=== PATIENT | female | born 1950 | race Caucasian/White ===

== ENCOUNTER 2016-07-20 18:58 | Emergency (ER) | payer MEDICARE, OTHER ==
[~2016-07-20] VITALS: Ht 165.1 cm; Wt 55.0 kg
[2016-07-20 19:01] VITALS: BP 96/56; PULSE 74; RESP 15; TEMP 98; O2SAT 95
[2016-07-20] MEDS ORDERED: RESP: ALBUTEROL 2.5 MG/IPRATROPIUM 0.5 MG NEB (SCH) NEB ONE (19:45)
--- NOTE | 2016-07-20 19:52 | PD ---
HPI Chief Complaint: Abnormal Results Time Seen by Provider: 19:31 Travel History International Travel<30 days: No Contact w/Intl Traveler<30days: No Traveled to known affect area: No History of Present Illness HPI To 65-year-old woman who presents to the emergency department brought in by family because she has "abnormal labs". She is a history of stage V chronic kidney disease. She has a fistula in her left arm that is still maturing. 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 2 days ago her family moved her down from [place]. She has a primary physician, Kim Rodriges, who did blood work and referred her to the emergency department. Reports her creatinine was in the threes, and her white count was in the 2.4 range. Patient complains she's been feeling weak and tired. She hasn't really pedis much. No fevers. History Past Medical History Narrative Medical COPD CAD Hypertension vitamin D deficiency Chronic kidney disease Tetanus Vaccination: > 5 Years : 3 Para: 3 Social History Alcohol Use: No Tobacco Use: Yes Allergies-Medications (Allergen,Severity, Reaction): Coded Allergies: Cipro (Verified Allergy, Unknown, 07/20/16) Codeine (Verified Allergy, Unknown, 07/20/16) Morphine (Verified Allergy, Unknown, 07/20/16) Reported Meds & Prescriptions Reported Meds & Active Scripts Active Reported Duoneb (Ipratropium-Albuterol Neb) 0.5-2.5 Mg/3 Ml Neb 1 Nebule INH Q6HR NEB Alprazolam 0.5 Mg Tab 0.5 Mg PO Q12HR PRN Aspirin 81 (Aspirin) 81 Mg Tabdr 81 Mg PO DAILY Famotidine 20 Mg Tab 20 Mg PO DAILY Docusate Sodium 100 Mg Cap 100 Mg PO BID Fluoxetine (Fluoxetine HCl) 20 Mg Cap 20 Mg PO DAILY Vitamin D3 (Cholecalciferol) 2,000 Unit Tab 2,000 Units PO DAILY Spiriva Handihaler (Tiotropium Inh) 18 Mcg Cap 18 Mcg INH DAILY 1 capsule = 18 mcg Tolterodine (Tolterodine Tartrate) 1 Mg Tab 1 Mg PO DAILY Symbicort Inh (Budesonide/Formoterol Fumarate) 160-4.5 Mcg/Act Aero 2 Puff INH Q12HR Nicoderm CQ Patch (Nicotine) 21 Mg/24 Hr Patch 21 Mg T-DERMAL DAILY Mucinex ER 12 HR (Guaifenesin) 600 Mg Melania 600 Mg PO TID Trazodone (Trazodone HCl) 150 Mg Tab 150 Mg PO HS Oxycodone Hydrochloride (Oxycodone HCl) 5 Mg Cap 10 Mg Gabapentin 100 Mg Cap 100 Mg PO TID Review of Systems Except as stated in HPI: all other systems reviewed are Neg Physical Exam Narrative GENERAL: Well-appearing 65-year-old woman, no acute distress.] SKIN: Warm and dry. HEAD: Atraumatic. Normocephalic. CARDIOVASCULAR: Regular rate and rhythm. No murmur appreciated. RESPIRATORY: No accessory muscle use. Clear to auscultation. Breath sounds equal bilaterally. GASTROINTESTINAL: Abdomen soft, non-tender, nondistended. Hepatic and splenic margins not palpable. MUSCULOSKELETAL: No obvious deformities. No edema. NEUROLOGICAL: Awake and alert. No obvious cranial nerve deficits. Motor grossly within normal limits. Normal speech. Data Data Last Documented VS Vital Signs Date Time Temp Pulse Resp B/P Pulse Ox O2 Delivery O2 Flow Rate FiO2 07/20/16 19:49 98 Room Air 07/20/16 19:01 98.0 74 15 96/56 Orders Complete Blood Count With Diff (07/20/16 19:17) Comprehensive Metabolic Panel (07/20/16 19:17) Lipase (07/20/16 19:17) Ua Includes Microscopic (07/20/16 19:17) Iv Access Insert/Monitor (07/20/16 19:17) Chest, Single Ap (07/20/16 ) Albuterol-Ipratropium Neb (Duoneb Neb) (07/20/16 19:45) ^ Home Health (07/20/16 20:53) Labs Laboratory Tests Test 07/20/16 19:55 White Blood Count 2.1 TH/MM3 Red Blood Count 3.51 MIL/MM3 Hemoglobin 9.9 GM/DL Hematocrit 29.1 % Mean Corpuscular Volume 83.0 FL Mean Corpuscular Hemoglobin 28.2 PG Mean Corpuscular Hemoglobin 34.0 % Concent Red Cell Distribution Width 13.4 % Platelet Count 306 TH/MM3 Mean Platelet Volume 7.4 FL Neutrophils (%) (Auto) 45.0 % Lymphocytes (%) (Auto) 18.8 % Monocytes (%) (Auto) 33.7 % Eosinophils (%) (Auto) 0.7 % Basophils (%) (Auto) 1.8 % Neutrophils # (Auto) 1.0 TH/MM3 Lymphocytes # (Auto) 0.4 TH/MM3 Monocytes # (Auto) 0.7 TH/MM3 Eosinophils # (Auto) 0.0 TH/MM3 Basophils # (Auto) 0.0 TH/MM3 CBC Comment DIFF FINAL Differential Comment Sodium Level 134 MEQ/L Potassium Level 4.6 MEQ/L Chloride Level 103 MEQ/L Carbon Dioxide Level 22.9 MEQ/L Anion Gap 8 MEQ/L Blood Urea Nitrogen 53 MG/DL Creatinine 4.18 MG/DL Estimat Glomerular Filtration 11 ML/MIN Rate Random Glucose 80 MG/DL Calcium Level 8.5 MG/DL Total Bilirubin 0.6 MG/DL Aspartate Amino Transf 11 U/L (AST/SGOT) Alanine Aminotransferase 12 U/L (ALT/SGPT) Alkaline Phosphatase 91 U/L Total Protein 8.1 GM/DL Albumin 3.4 GM/DL Lipase 128 U/L [facility] Medical Decision Making Medical Screen Exam Complete: Yes Emergency Medical Condition: Yes Interpretation(s) LABS: CBC remarkable for mild anemia. White count is 2.1 with 33.7% monos CMP remarkable for elevated BUN/creatinine 53/4.18, GFR 11 Lipase 128 Chest x-ray: Left lower lobe infiltrate. Differential Diagnosis Chronic kidney disease, acute on chronic renal failure, neutropenia, infection, other Narrative Course Medical decision making Initial: 65-year-old with Chronic Kidney Disease, Chronic Neutropenia, Who Presents with Abnormal Labs for the Same. It Sounds like There Are Difficulty Getting Established with Your Doctor Is Not Been Moved down 2 Days Ago. There Are Noted Impression Initial Need Dialysis within the Next Week or 2. She Looks Well. We Will Recheck X-Ray, Labs, Reassess. Diagnosis Primary Impression: Chronic kidney disease Qualified Code: N18.5 - Chronic kidney disease, stage 5 Referrals: Martin Mills MD 2 days Angel Jurado MD 2 days Patient Instructions: General Instructions Additional Instructions: Continue current medications. Follow-up with oncology and nephrology as discussed. Return to the emergency department for any new or worsening symptoms. Med/Other Pt SpecificInfo: No Change to Meds Disposition: 01 DISCHARGE HOME Condition: Stable Uche Little MD Jul 20, 2016 19:52
--- NOTE | 2016-07-20 19:54 | RADRPT ---
EXAM DATE/TIME: 07/20/2016 19:40 [facility] COMPARISON: No previous studies available for comparison. INDICATIONS : Short of Breath, Chest Discomfort. MEDICAL HISTORY : Chronic obstructive pulmonary disease. Emphysema. Kidney Disease. SURGICAL HISTORY : None. ENCOUNTER: Initial ACUITY: 1 day PAIN SCORE: 2/10 LOCATION: Bilateral chest FINDINGS: Parenchymal process is present in the left mid and lower lung mainly air space and highly suggestive of pneumonia. The right lung is clear. A tiny left pleural effusion maybe present. CONCLUSION: Left lower lung pneumonia and follow up is suggested with repeat chest x-ray in 4-6 weeks after appro priate clinical therapy. Ivana Dumont MD on July 20, 2016 at 19:51 Board Certified Radiologist. This report was verified electronically.
[2016-07-20] MEDS ORDERED: SYMB160A INH (20:09)
[2016-07-20] MEDS ORDERED: OXYC1CAP8 PO (20:09)
[2016-07-20] MEDS ORDERED: SPIRCAP INH (20:09)
[2016-07-20] MEDS ORDERED: NICO21DI6 T-DERMAL (20:09)
[2016-07-20] MEDS ORDERED: ALPR0.5T3 PO (20:09)
[2016-07-20] MEDS ORDERED: TRAZ150T75 PO (20:09)
[2016-07-20] MEDS ORDERED: GABA100C4 PO (20:09)
[2016-07-20] MEDS ORDERED: IPRASOL INH (20:09)
[2016-07-20] MEDS ORDERED: ASPI-110 PO (20:09)
[2016-07-20] MEDS ORDERED: MUCI600T PO (20:09)
[2016-07-20] MEDS ORDERED: FLUO20CA4 PO (20:09)
[2016-07-20] MEDS ORDERED: TOLT60TA PO (20:09)
[2016-07-20] MEDS ORDERED: FAMO20TA2 PO (20:09)
[2016-07-20] MEDS ORDERED: DOCU100C PO (20:09)
[2016-07-20] MEDS ORDERED: VITA200012 PO (20:09)
[2016-07-20 20:16] LABS: BASOPHIL % 1.8 % (0.0-2.0); EOSINOPHIL % 0.7 % (0.0-4.0); HEMATOCRIT 29.1 % (35.0-46.0); HEMO FLAGS DIFF FINAL; LYMPH % 18.8 % (9.0-44.0); LYMPHOCYTE # 0.4 TH/MM3 (1.0-4.8); MEAN CORPUSCULAR HEMOGLOBIN 28.2 PG (27.0-34.0); MONO % 33.7 % (0.0-8.0); PLATELET COUNT 306 TH/MM3 (150-450); RED BLOOD COUNT 3.51 MIL/MM3 (4.00-5.30); RED CELL DISTRIBUTION WIDTH 13.4 % (11.6-17.2); WHITE BLOOD COUNT 2.1 TH/MM3 (4.0-11.0)
[2016-07-20 20:35] LABS: ANION GAP 8 MEQ/L (5-15); AST (GOT) 11 U/L (15-37); BICARBONATE 22.9 MEQ/L (21.0-32.0); BLOOD UREA NITROGEN 53 MG/DL (7-18); CHLORIDE 103 MEQ/L (98-107); GLOMERULAR FILTRATION RATE 11 ML/MIN (>89); POTASSIUM 4.6 MEQ/L (3.5-5.1); SODIUM (NA) 134 MEQ/L (136-145)
[2016-07-20 20:38] LABS: ALKALINE PHOSPHATASE 91 U/L (45-117); ALT (GPT) 12 U/L (10-53); TOTAL BILIRUBIN ADULT 0.6 MG/DL (0.2-1.0)
--- NOTE | 2016-07-20 21:35 | HHI.FF ---
Face to Face Verification Diagnosis: (1) Chronic kidney disease (2) COPD (chronic obstructive pulmonary disease) (3) Hypoxia Home Health Nursing Order: Medical education Signs/symptoms of disease process Oxygen administration education Nursing assessment with vital signs I have seen patient Allie Hylton on 07/20/16. My clinical findings support the need for the requested home health care services because: Deconditioned w/ increased weakness Limited ability to care for self High risk of falls I certify that my clinical findings support that this patient is homebound because: Hx COPD- exertion dyspnea/weakness Unsteady gait/balance Unsafe to leave home unassisted Uche Little MD Jul 20, 2016 21:35
[2016-09-17] MEDS ORDERED: OXYGEN NAS.CANULA (15:14)
[2016-09-17] MEDS ORDERED: OXYGENTANK NAS.CANULA (15:15)
== END 2016-07-20 21:53 | disposition home or self-care (01) ==
LOC: NEPE 18:58
DX: I12.0 Hypertensive chronic kidney disease with stage 5 chronic kidney disease or end stage renal disease (principal); N18.5 Chronic kidney disease, stage 5; Z72.0 Tobacco use
CPT/HCPCS: 71010; 80053; 83690; 85025; 94664; 99283

== ENCOUNTER 2016-07-22 19:46 | Inpatient (IN) | payer OTHER, MEDICARE ==
[~2016-07-22] VITALS: Ht 165.1 cm; Wt 60.0 kg
[~2016-07-22 19:46] MED LIST: ALPR0.5T3 PO; ASPI-110 PO; DOCU100C PO; FAMO20TA2 PO; FLUO20CA4 PO; GABA100C4 PO; IPRASOL INH; MUCI600T PO; NICO21DI6 T-DERMAL; OXYC1CAP8 PO; SPIRCAP INH; SYMB160A INH; TOLT60TA PO; TRAZ150T75 PO; VITA200012 PO
[2016-07-22 19:49] VITALS: BP 94/50; PULSE 66; RESP 14; TEMP 97.6; O2SAT 98
[2016-07-22] MEDS ORDERED: SODIUM CHLOR 0.9% 1000 ML INJ 1,000 ML IV ONE ×2 (21:00→22:30)
[2016-07-22] MEDS ORDERED: REMOVE OLD PATCH T-DERMAL SCH (21:00)
--- NOTE | 2016-07-22 21:01 | PD ---
HPI Chief Complaint: Altered Mental Status Time Seen by Provider: 20:31 Travel History International Travel<30 days: No Contact w/Intl Traveler<30days: No Traveled to known affect area: No History of Present Illness HPI 65 years old female complains of generalized malaise and weakness, headache, back pain, chest pain shortness of breath, coughing, abdominal pain, intermittent nausea vomiting, unsteady gait. Patient has history of states 5 kidney disease and neutropenia. Patient was seen by stage director in [place] and machine tool electrician in [place]. Patient had AV fistula placement 3 weeks ago in [place]. Patient had Neupogen shot on June 26 in [place]. Patient just moved down to [facility] recently and had a family physician however does not have any machine tool electrician oncologist or stage director for follow-up. Patient was seen in emergency room on July 20, 2016. Patient was diagnosed with chronic kidney disease and referred to stage director and machine tool electrician on-call that time including Dr. Jurado and Dr. Mills. Patient states that she got progressively worse since then. Patient complain itching also. Patient states that she has intermittent cough for the past several days. Patient denies any fever chills. PFSH Past Medical History Anxiety: Yes Depression: Yes Cancer: Yes (lung) Cardiovascular Problems: Yes Chest Pain: Yes COPD: Yes Diminished Hearing: No GERD: Yes Respiratory: Yes (COPD/LUNG CA/WEDGE RESECTION L LUNG) Myocardial Infarction: Yes ("minor") Pneumonia: Yes Radiation Therapy: Yes Renal Failure: Yes : 3 Para: 3 Past Surgical History Cholecystectomy: Yes Neurologic Surgery: Yes (brain ) Social History Alcohol Use: No Tobacco Use: Yes Substance Use: No Allergies-Medications (Allergen,Severity, Reaction): Coded Allergies: Cipro (Verified Allergy, Unknown, 07/22/16) Codeine (Verified Allergy, Unknown, 07/22/16) Morphine (Verified Allergy, Unknown, 07/22/16) Reported Meds & Prescriptions Reported Meds & Active Scripts Active Reported Duoneb (Ipratropium-Albuterol Neb) 0.5-2.5 Mg/3 Ml Neb 1 Nebule INH Q6HR NEB Alprazolam 0.5 Mg Tab 0.5 Mg PO Q12HR PRN Aspirin 81 (Aspirin) 81 Mg Tabdr 81 Mg PO DAILY Famotidine 20 Mg Tab 20 Mg PO DAILY Docusate Sodium 100 Mg Cap 100 Mg PO BID Vitamin D3 (Cholecalciferol) 2,000 Unit Tab 2,000 Units PO DAILY Spiriva Handihaler (Tiotropium Inh) 18 Mcg Cap 18 Mcg INH DAILY 1 capsule = 18 mcg Tolterodine (Tolterodine Tartrate) 1 Mg Tab 1 Mg PO DAILY Symbicort Inh (Budesonide/Formoterol Fumarate) 160-4.5 Mcg/Act Aero 2 Puff INH Q12HR Nicoderm CQ Patch (Nicotine) 21 Mg/24 Hr Patch 21 Mg T-DERMAL DAILY Mucinex ER 12 HR (Guaifenesin) 600 Mg Melania 600 Mg PO TID Trazodone (Trazodone HCl) 150 Mg Tab 150 Mg PO HS Oxycodone Hydrochloride (Oxycodone HCl) 5 Mg Cap 10 Mg Gabapentin 100 Mg Cap 100 Mg PO TID Review of Systems General / Constitutional: No: Fever Eyes: No: Visual changes HENT: Positive: Headaches Cardiovascular: Positive: Chest Pain or Discomfort Respiratory: Positive: Cough, Shortness of Breath Gastrointestinal: Positive: Nausea, Vomiting, Abdominal Pain Genitourinary: No: Dysuria Musculoskeletal: No: Pain Skin: No Rash Neurologic: No: Weakness Psychiatric: No: Depression Endocrine: No: Polydipsia Hematologic/Lymphatic: No: Easy Bruising Physical Exam Narrative GENERAL: Well-nourished, well-developed patient. SKIN: Warm and dry. HEAD: Normocephalic. EYES: No scleral icterus. No injection or drainage. Pupils 2 mm equal reactive. NECK: Supple, trachea midline. No JVD or lymphadenopathy. CARDIOVASCULAR: Regular rate and rhythm without murmurs, gallops, or rubs. RESPIRATORY: Breath sounds equal bilaterally. No accessory muscle use. Mild diffuse rhonchi bilaterally. No wheezes. GASTROINTESTINAL: Abdomen soft, nondistended. Patient has mild diffuse tenderness over the abdomen. MUSCULOSKELETAL: No cyanosis, or edema. BACK: Mild tenderness on palpation lumbar area, without obvious deformity. No CVA tenderness. Neurologic exam: Patient's is lethargic however answer questions appropriately. Patient can moves all extremity well. No obvious focal neurological deficit. Data Data Last Documented VS Vital Signs Date Time Temp Pulse Resp B/P Pulse Ox O2 Delivery O2 Flow Rate FiO2 07/22/16 21:59 18 07/22/16 20:28 68 98 07/22/16 19:49 97.6 94/50 Orders Electrocardiogram (07/22/16 20:49) Complete Blood Count With Diff (07/22/16 20:49) Comprehensive Metabolic Panel (07/22/16 20:49) Creatine Kinase (Cpk) (07/22/16 20:49) Troponin I (07/22/16 20:49) B-Type Natriuretic Peptide (07/22/16 20:49) Prothrombin Time / Inr (Pt) (07/22/16 20:49) Act Partial Throm Time (Ptt) (07/22/16 20:49) Blood Culture (07/22/16 20:49) Urinalysis - C+S If Indicated (07/22/16 20:49) Magnesium (Mg) (07/22/16 20:49) Thyroid Stimulating Hormone (07/22/16 20:49) Phosphorus (Po4) (07/22/16 20:49) Chest, Single Ap (07/22/16 20:49) Iv Access Insert/Monitor (07/22/16 20:49) Ecg Monitoring (07/22/16 20:49) Oximetry (07/22/16 20:49) Sodium Chlor 0.9% 1000 Ml Inj (Ns 1000 M (07/22/16 21:00) Lactic Acid (07/22/16 20:52) Ct Brain W/O Iv Contrast(Rout) (07/22/16 20:58) Vancomycin Inj (Vancomycin Inj) (07/22/16 22:30) Piperacil-Tazo 2.25 Gm Premix (Zosyn 2.2 (07/22/16 22:30) Sodium Chlor 0.9% 1000 Ml Inj (Ns 1000 M (07/22/16 22:30) Labs Laboratory Tests Test 07/22/16 21:15 White Blood Count 1.9 TH/MM3 Red Blood Count 3.55 MIL/MM3 Hemoglobin 9.7 GM/DL Hematocrit 29.7 % Mean Corpuscular Volume 83.6 FL Mean Corpuscular Hemoglobin 27.4 PG Mean Corpuscular Hemoglobin 32.8 % Concent Red Cell Distribution Width 13.7 % Platelet Count 310 TH/MM3 Mean Platelet Volume 7.6 FL Neutrophils (%) (Auto) 30.2 % Lymphocytes (%) (Auto) 24.4 % Monocytes (%) (Auto) 42.2 % Eosinophils (%) (Auto) 0.6 % Basophils (%) (Auto) 2.6 % Neutrophils # (Auto) 0.6 TH/MM3 Lymphocytes # (Auto) 0.5 TH/MM3 Monocytes # (Auto) 0.8 TH/MM3 Eosinophils # (Auto) 0.0 TH/MM3 Basophils # (Auto) 0.1 TH/MM3 CBC Comment AUTO DIFF Differential Total Cells 100 Counted Neutrophils % (Manual) 24 % Band Neutrophils % 11 % Lymphocytes % 34 % Monocytes % 27 % Eosinophils % 1 % Basophils % 3 % Neutrophils # (Manual) 0.7 TH/MM3 Nucleated Red Blood Cells 1 /100 WBC Differential Comment FINAL DIFF MANUAL Platelet Estimate NORMAL Platelet Morphology Comment NORMAL Red Cell Morphology Comment NORMAL Prothrombin Time 10.7 SEC Prothromb Time International 1.0 RATIO Ratio Activated Partial 31.6 SEC Thromboplast Time Sodium Level 138 MEQ/L Potassium Level 4.0 MEQ/L Chloride Level 107 MEQ/L Carbon Dioxide Level 20.5 MEQ/L Anion Gap 11 MEQ/L Blood Urea Nitrogen 56 MG/DL Creatinine 4.68 MG/DL Estimat Glomerular Filtration 9 ML/MIN Rate Random Glucose 115 MG/DL Calcium Level 8.4 MG/DL Phosphorus Level 5.1 MG/DL Magnesium Level 2.4 MG/DL Total Bilirubin 0.6 MG/DL Aspartate Amino Transf 8 U/L (AST/SGOT) Alanine Aminotransferase 10 U/L (ALT/SGPT) Alkaline Phosphatase 89 U/L Total Creatine Kinase 24 U/L Troponin I LESS THAN 0.02 NG/ML B-Type Natriuretic Peptide 131 PG/ML Total Protein 7.7 GM/DL Albumin 3.1 GM/DL Thyroid Stimulating Hormone 1.860 uIU/ML [address] [place] [address] Medical Decision Making Medical Screen Exam Complete: Yes Emergency Medical Condition: Yes Interpretation(s) Last Impressions Head CT 07/22/162057 Signed Impressions: Service Date/Time: Friday, July 22, 2016 21:12 - CONCLUSION: Moderate atrophy. No acute findings in the brain. 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 Air-fluid levels in both maxillary sinuses suggest acute maxillary sinusitis. Claudy Denis MD Chest X-Ray 07/22/[id number] Signed Impressions: Service Date/Time: Friday, July 22, 2016 20:52 - CONCLUSION: Stable left lung infiltrate. Claudy Denis MD 22:14 PM. CBC WBC 1.9. Hemoglobin 9.7 hematocrit 29.7. 24 neutrophil. 11 bands. 34 lymphs. 27 monocytes. Bicarbonate 20.5. BUN 56. Creatinine 4.68. GFR 9. Calcium 8.4. Phosphorus 5.1. Troponin normal. BNP 131. Differential Diagnosis Differential diagnosis including dehydration, electrolyte imbalance, acute on chronic kidney injury, viral syndrome, pneumonia, UTI, sepsis. Narrative Course 65 years old female with generalized malaise and weakness, headache, coughing, chest pain shortness of breath, abdominal pain, nausea vomiting, unsteady gait. History of chronic kidney disease. History of neutropenia. Normal saline solution 2 L IV bolus. Vancomycin 1 g IV. Zosyn 2.25 g IV. Diagnosis Primary Impression: Sepsis Qualified Code: A41.9 - Sepsis, due to unspecified organism Additional Impressions: Acute kidney injury superimposed on chronic kidney disease Neutropenia Qualified Code: D70.9 - Neutropenia, unspecified type Admitting Information Admitting Physician Requests: Admit Hill Chen MD Jul 22, 2016 21:01
[2016-07-22 21:30] LABS: AUTOMATED NEUTROPHIL # 0.6 TH/MM3 (1.8-7.7); BASOPHIL # 0.1 TH/MM3 (0-0.2); BASOPHIL % 2.6 % (0.0-2.0); EOSINOPHIL % 0.6 % (0.0-4.0); HEMATOCRIT 29.7 % (35.0-46.0); LYMPH % 24.4 % (9.0-44.0); LYMPHOCYTE # 0.5 TH/MM3 (1.0-4.8); MEAN CELL VOLUME 83.6 FL (80.0-100.0); MEAN CORPUSCULAR HEMOGLOBIN 27.4 PG (27.0-34.0); MEAN CORPUSCULAR HGB CONC 32.8 % (32.0-36.0); MONO % 42.2 % (0.0-8.0); NEUT % 30.2 % (16.0-70.0); PLATELET COUNT 310 TH/MM3 (150-450); RED BLOOD COUNT 3.55 MIL/MM3 (4.00-5.30); RED CELL DISTRIBUTION WIDTH 13.7 % (11.6-17.2); WHITE BLOOD COUNT 1.9 TH/MM3 (4.0-11.0)
[2016-07-22 21:37] LABS: HEMO FLAGS AUTO DIFF
--- NOTE | 2016-07-22 21:38 | RADRPT ---
EXAM DATE/TIME: 07/22/2016 20:52 [facility] COMPARISON: CHEST SINGLE AP, July 20, 2016, 19:40. INDICATIONS : Shortness of breath. MEDICAL HISTORY : Chronic obstructive pulmonary disease. Emphysema. SURGICAL HISTORY : Wedge resection. ENCOUNTER: Initial ACUITY: 2 days PAIN SCORE: 4/10 LOCATION: Left chest FINDINGS: There is persistent non-consolidative infiltrate in left midlung extending to the left lower lung wit h loss of delineation of a portion of the lateral left hemidiaphragm. The findings are unchanged fro m prior chest x-ray 2 days ago. Right lung is clear. The heart is normal size. CONCLUSION: Stable left lung infiltrate. Claudy Denis MD on July 22, 2016 at 21:36 Board Certified Radiologist. This report was verified electronically.
[2016-07-22 21:43] LABS: APTT (PATIENT) 31.6 SEC (24.3-30.1); PROTHROMBIN TIME - PATIENT 10.7 SEC (9.8-11.6)
[2016-07-22 21:45] LABS: ANION GAP 11 MEQ/L (5-15); AST (GOT) 8 U/L (15-37); BICARBONATE 20.5 MEQ/L (21.0-32.0); BLOOD UREA NITROGEN 56 MG/DL (7-18); CHLORIDE 107 MEQ/L (98-107); GLOMERULAR FILTRATION RATE 9 ML/MIN (>89); MAGNESIUM 2.4 MG/DL (1.5-2.5); SODIUM (NA) 138 MEQ/L (136-145)
--- NOTE | 2016-07-22 21:49 | RADRPT ---
EXAM DATE/TIME: 07/22/2016 21:12 [facility] COMPARISON: No previous studies available for comparison. INDICATIONS : Headache. RADIATION DOSE: 56.35 CTDIvol (mGy) MEDICAL HISTORY : Carcinoma, lung. Cardiovascular disease Chronic obstructive pulmonary disease.GERD, Renal failure SURGICAL HISTORY : aneurysm clipping ENCOUNTER: Initial ACUITY: 1 day PAIN SCALE: 6/10 LOCATION: cranial TECHNIQUE: Multiple contiguous axial images were obtained of the head. Using automated exposure control and adj ustment of the mA and/or kV according to patient size, radiation dose was kept as low as reasonably a chievable to obtain optimal diagnostic quality images. FINDINGS: CEREBRUM: The ventricles, sulci, and basal cisterns are symmetrically prominent, characteristic of moderate jose roberto tral cortical atrophy.. No evidence of midline shift, mass lesion, hemorrhage or acute infarction. No extra-axial fluid collections are seen. POSTERIOR FOSSA: The cerebellum and brainstem are intact. The 4th ventricle is midline. The cerebellopontine angle i s unremarkable. EXTRACRANIAL: The visualized portion of the orbits is intact. 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 There are air-fluid levels in both maxillary si nuses, left greater than right. There is also nasal septal deviation towards the left and embolizati on of the right middle turbinate. SKULL: The calvaria is intact. No evidence of skull fracture. CONCLUSION: Moderate atrophy. No acute findings in the brain. 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 r-fluid levels in both maxillary sinuses suggest acute maxillary sinusitis. Claudy Denis MD on July 22, 2016 at 21:45 Board Certified Radiologist. This report was verified electronically.
[2016-07-22 21:56] LABS: ALKALINE PHOSPHATASE 89 U/L (45-117); ALT (GPT) 10 U/L (10-53); TOTAL BILIRUBIN ADULT 0.6 MG/DL (0.2-1.0)
[2016-07-22 21:57] LABS: CREATINE KINASE 24 U/L (26-192)
[2016-07-22 21:59] VITALS: RESP 18
[2016-07-22 22:07] LABS: BANDS 11 % (0-6); BASOPHILS 3 % (0-2); CORRECTED NUCLEATED RBC 1 /100 WBC (0-0); EOSINOPHILS 1 % (0-4); NEUTROPHIL # MANUAL DIFF 0.7 TH/MM3 (1.8-7.7); PLATELET ESTIMATE SMEAR NORMAL (NORMAL); PLATELET MORPHOLOGY NORMAL (NORMAL); POLYS (SEG NEUTROPHILS) 24 % (16-70); SCAN/DIFF FINAL DIFF MANUAL; WBC DIFF SAMPLE 100
[2016-07-22] MEDS ORDERED: VANCOMYCIN INJ 1,000 MG in SODIUM CHLOR 0.9% 250 ML INJ 250 ML IV ONE (22:30)
[2016-07-22] MEDS ORDERED: PIPERACIL-TAZO 2.25 GM PREMIX 50 ML IV ONE (22:30)
[2016-07-22 22:31] VITALS: BP 101/58; PULSE 68; RESP 18; O2SAT 99
[2016-07-22 22:51] LABS: BLOOD, URINE LARGE (NEG); COMMENT (UR) CULTURE INDICATED; CULTURE IF INDICATED CULTURE INDICATED; GLUCOSE,URINE NEG (NEG); KETONE, URINE NEG (NEG); MUCUS URINE FEW /lpf (OCC); SQUAMOUS EPITHELIAL CELL URINE 4 /hpf (0-5); URINE COLOR YELLOW (YELLW/STRAW)
[2016-07-22 22:52] LABS: NITRITE,URINE POS (NEG)
--- NOTE | 2016-07-22 22:54 | HHI.HP ---
[facility] Service Critical Care Medicine Primary Care Physician Mera Chavarria MD Admission Diagnosis sepsis. Acute on chronic kidney disease. Neutropenia. 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 Patient has history of chronic kidney disease and neutropenia. 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 Patient had AV fistula placement 3 weeks ago in [place]. Patient had Neupogen shot on June 26 in [place]. Patient was seen in emergency room on July 20, 2016 for abnormal labs. Review of Systems Constitutional: COMPLAINS OF: Fatigue, Dizziness, DENIES: Diaphoretic episodes , Fever, Weight gain, Weight loss, Chills, Change in appetite, Night Sweats Endocrine: DENIES: Abnorml menstrual pattern, Heat/cold intolerance, Polydipsia , Polyuria, Polyphagia Eyes: DENIES: Blurred vision, Diplopia, Eye inflammation, Eye pain, Vision loss , Photosensitivity, Double Vision Ears, nose, mouth, throat: DENIES: Tinnitus, Hearing loss, Vertigo, Nasal discharge, Oral lesions, Throat pain, Hoarseness, Ear Pain, Running Nose, Epistaxis, Sinus Pain, Toothache, Odynophagia Respiratory: DENIES: Apneas, Cough, Snoring, Wheezing, Hemoptysis, Sputum production, Shortness of breath Cardiovascular: DENIES: Chest pain, Palpitations, Syncope, Dyspnea on Exertion , PND, Lower Extremity Edema, Orthopnea, Claudication Gastrointestinal: DENIES: Abdominal pain, Black stools, Bloody stools, Constipation, Diarrhea, Nausea, Vomiting, Difficulty Swallowing, Anorexia Genitourinary: DENIES: Abnormal vaginal bleeding, Dysmenorrhea, Dyspareunia, Sexual dysfunction, Urinary frequency, Urinary incontinence, Urgency, Hematuria , Dysuria, Nocturia, Vaginal discharge Musculoskeletal: DENIES: Joint pain, Muscle aches, Stiffness, Joint Swelling, Back pain, Neck pain Integumentary: DENIES: Abnormal pigmentation, Pruritus, Rash, Nail changes, Breast masses, Breast skin changes, Nipple discharge Hematologic/lymphatic: DENIES: Bruising, Lymphadenopathy Immunologic/allergic: DENIES: Eczema, Urticaria Neurologic: COMPLAINS OF: Poor Balance, DENIES: Abnormal gait, Headache, Localized weakness, Paresthesias, Seizures, Speech Problems, Tremor Psychiatric: DENIES: Anxiety, Confusion, Mood changes, Depression, Hallucinations, Agitation, Suicidal Ideation, Homicidal Ideation, Delusions Past Family Social History Allergies: Coded Allergies: Cipro (Verified Allergy, Unknown, 07/22/16) Codeine (Verified Allergy, Unknown, 07/22/16) Morphine (Verified Allergy, Unknown, 07/22/16) Past Medical History Anxiety: Yes Depression: Yes Cancer: Yes (lung) - small cell - post wedge resection and radiation 2013 COPD: Yes GERD: Yes Renal Failure: Yes Past Surgical History Cholecystectomy: Yes Wedge resection of the lungs Reported Medications Duoneb (Ipratropium-Albuterol Neb) 0.5-2.5 Mg/3 Ml Neb 1 Nebule INH Q6HR NEB Alprazolam 0.5 Mg Tab 0.5 Mg PO Q12HR PRN Aspirin 81 (Aspirin) 81 Mg Tabdr 81 Mg PO DAILY Famotidine 20 Mg Tab 20 Mg PO DAILY Docusate Sodium 100 Mg Cap 100 Mg PO BID Vitamin D3 (Cholecalciferol) 2,000 Unit Tab 2,000 Units PO DAILY Spiriva [place] (Tiotropium Inh) 18 Mcg Cap 18 Mcg INH DAILY 1 capsule = 18 mcg Tolterodine (Tolterodine Tartrate) 1 Mg Tab 1 Mg PO DAILY Symbicort Inh (Budesonide/Formoterol Fumarate) 160-4.5 Mcg/Act Aero 2 Puff INH Q12HR Nicoderm CQ Patch (Nicotine) 21 Mg/24 Hr Patch 21 Mg T-DERMAL DAILY Mucinex ER 12 HR (Guaifenesin) 600 Mg Melania 600 Mg PO TID Trazodone (Trazodone HCl) 150 Mg Tab 150 Mg PO HS Oxycodone Hydrochloride (Oxycodone HCl) 5 Mg Cap 10 Mg Gabapentin 100 Mg Cap 100 Mg PO TID Active Ordered Medications Current Medications Medications (Trade) Dose Ordered Sig/Carlos Route PRN Reason Start Time Stop Time Status Last Admin Dose Admin Sodium Chloride (NS 1000 ml Inj) 1,000 ml @ 150 mls/hr Q6H40M IV 07/22/16 22:55 07/22/16 23:50 Acetaminophen (Tylenol) 650 mg Q6H PRN PO PAIN 1-10 AND/OR FEVER >101F 07/22/16 23:00 Hydromorphone HCl (Dilaudid Pf Inj) 1 mg Q4H PRN IV PAIN SCALE 6 TO 10 07/22/16 23:00 Famotidine (Pepcid) 10 mg Q12HR PO 07/23/16 09:00 Ondansetron HCl (Zofran Inj) 4 mg Q6H PRN IV NAUSEA OR VOMITING 07/22/16 23:00 Metoclopramide HCl (Reglan Inj) 5 mg Q6H PRN IV NAUSEA OR VOMITING 07/22/16 23:00 Docusate Sodium (Colace) 100 mg BID PO 07/23/16 09:00 Zolpidem Tartrate (Ambien) 5 mg HS PRN PO INSOMNIA 07/22/16 23:00 Miscellaneous Information 1 Q361D XX 07/22/16 23:00 Chlorhexidine Gluconate (Chlorhexidine 2% Cloth) 3 pack Taper DAILY@04 TOP 07/23/16 04:00 07/19/17 03:59 Chlorhexidine Gluconate (Chlorhexidine 2% Cloth) 3 pack UNSCH PRN TOP HYGIENIC CARE 07/22/16 23:00 IV Flush (NS Flush) 2 ml UNSCH PRN IV FLUSH FLUSH AFTER USING IV ACCESS 07/22/16 23:00 IV Flush 2 ml 2 ml BID IV FLUSH 07/23/16 09:00 Pharmacy Profile Note (Vancomycin Consult Pharmacy) 0 ml @ 0 mls/hr UNSCH XX 07/22/16 23:00 Alprazolam (Xanax) 0.5 mg Q12H PRN PO ANXIETY 07/22/16 23:15 Aspirin (Ecotrin Ec) 81 mg DAILY PO 07/23/16 09:00 Budesonide/ Formoterol Fumarate (Symbicort 160-4.5 Inh) 2 puff Q12HR INH 07/23/16 09:00 Gabapentin (Neurontin) 100 mg TID PO 07/23/16 09:00 Guaifenesin (Mucinex Er) 600 mg TID PO 07/23/16 09:00 Nicotine (Habitrol 21 Mg Patch.24 Hr) 1 patch DAILY T-DERMAL 07/23/16 09:00 Tiotropium [place] (Spiriva Inh) 18 mcg DAILY INH 07/23/16 09:00 Trazodone HCl (Desyrel) 150 mg HS PO 07/22/16 23:15 07/23/16 00:24 Tolterodine Tartrate (Detrol La) 2 mg DAILY PO 07/23/16 09:00 Miscellaneous Information 1 DAILY T-DERMAL 07/23/16 09:00 Oxycodone/ Acetaminophen 1 tab 1 tab Q4H PRN PO PAIN SCALE 4 TO 10 07/22/16 23:15 Piperacillin Sod/ Tazobactam Sod 50 ml @ 100 mls/hr Q8HR IV 07/23/16 06:00 Sodium Chloride 1,000 ml @ 999 mls/hr BOLUS ONCE IV 07/23/16 00:45 07/23/16 01:45 Sodium Chloride (NS 1000 ml Inj) 1,000 ml @ 999 mls/hr BOLUS ONCE IV 07/23/16 00:45 07/23/16 01:45 Miscellaneous (Pill Splitter) 1 ea UNSCH PRN OTHER SEE LABEL COMMENTS 07/23/16 00:45 Family History Noncontributory Social History Alcohol Use: No Tobacco Use: Yes Substance Use: No Physical Exam Vital Signs Vital Signs Date Time Temp Pulse Resp B/P Pulse Ox O2 Delivery O2 Flow Rate FiO2 07/22/16 22:31 68 18 101/58 99 Nasal Cannula 2 07/22/16 21:59 18 07/22/16 20:28 68 18 98 07/22/16 19:49 97.6 66 14 94/50 98 Physical Exam GENERAL: Well-nourished, well-developed patient. SKIN: Warm and dry. HEAD: Normocephalic. EYES: No scleral icterus. No injection or drainage. NECK: Supple, trachea midline. No JVD or lymphadenopathy. CARDIOVASCULAR: Regular rate and rhythm without murmurs, gallops, or rubs. RESPIRATORY: Breath sounds equal bilaterally. No accessory muscle use. GASTROINTESTINAL: Abdomen soft, non-tender, nondistended. MUSCULOSKELETAL: No cyanosis, or edema. BACK: Nontender without obvious deformity. No CVA tenderness. Laboratory Laboratory Tests Test 07/22/16 07/22/16 07/22/16 21:15 22:10 22:20 White Blood Count 1.9 Red Blood Count 3.55 Hemoglobin 9.7 Hematocrit 29.7 Mean Corpuscular Volume 83.6 Mean Corpuscular Hemoglobin 27.4 Mean Corpuscular Hemoglobin 32.8 Concent Red Cell Distribution Width 13.7 Platelet Count 310 Mean Platelet Volume 7.6 Neutrophils (%) (Auto) 30.2 Lymphocytes (%) (Auto) 24.4 Monocytes (%) (Auto) 42.2 Eosinophils (%) (Auto) 0.6 Basophils (%) (Auto) 2.6 Neutrophils # (Auto) 0.6 Lymphocytes # (Auto) 0.5 Monocytes # (Auto) 0.8 Eosinophils # (Auto) 0.0 Basophils # (Auto) 0.1 CBC Comment AUTO DIFF Differential Total Cells 100 Counted Neutrophils % (Manual) 24 Band Neutrophils % 11 Lymphocytes % 34 Monocytes % 27 Eosinophils % 1 Basophils % 3 Neutrophils # (Manual) 0.7 Nucleated Red Blood Cells 1 Differential Comment FINAL DIFF MANUAL Platelet Estimate NORMAL Platelet Morphology Comment NORMAL Red Cell Morphology Comment NORMAL Prothrombin Time 10.7 Prothromb Time International 1.0 Ratio Activated Partial 31.6 Thromboplast Time Sodium Level 138 Potassium Level 4.0 Chloride Level 107 Carbon Dioxide Level 20.5 Anion Gap 11 Blood Urea Nitrogen 56 Creatinine 4.68 Estimat Glomerular Filtration 9 Rate Random Glucose 115 Calcium Level 8.4 Phosphorus Level 5.1 Magnesium Level 2.4 Total Bilirubin 0.6 Aspartate Amino Transf 8 (AST/SGOT) Alanine Aminotransferase 10 (ALT/SGPT) Alkaline Phosphatase 89 Total Creatine Kinase 24 Troponin I LESS THAN 0.02 B-Type Natriuretic Peptide 131 Total Protein 7.7 Albumin 3.1 Thyroid Stimulating Hormone 1.860 3rd Gen Lactic Acid Level 0.5 Urine Color YELLOW Urine Turbidity HAZY Urine pH 5.0 Urine Specific [place] 1.010 Urine Protein 30 Urine Glucose (UA) NEG Urine Ketones NEG Urine Occult Blood LARGE Urine Nitrite POS Urine Bilirubin NEG Urine Urobilinogen LESS THAN 2.0 Urine Leukocyte Esterase MOD Urine RBC 135 Urine WBC 7 Urine Squamous Epithelial 4 Cells Urine Mucus FEW Microscopic Urinalysis Comment CULTURE INDICATED Date/Time Procedure Status Source Growth 07/22/16 22:20 Urine Culture Received Urine Clean Catch Pending 07/22/16 22:10 Aerobic Blood Culture Received Blood Peripheral Pending 07/22/16 22:10 Anaerobic Blood Culture Received Blood Peripheral Pending Result Diagram: 07/22/16211407/22/162114 Imaging Last [address] 07/22/162057 Signed Impressions: Service Date/Time: Friday, July 22, 2016 21:12 - CONCLUSION: Moderate atrophy. No acute findings in the brain. 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 Air-fluid levels in both maxillary sinuses suggest acute maxillary sinusitis. Claudy Denis MD Chest X-Ray 07/22/162048 Signed Impressions: Service Date/Time: Friday, July 22, 2016 20:52 - CONCLUSION: Stable left lung infiltrate. Claudy Denis MD Assessment and Plan Problem List: (1) COPD (chronic obstructive pulmonary disease) ICD Code: J44.9 Status: Acute (2) Chronic kidney disease ICD Code: N18.9 Status: Acute (3) Neutropenia ICD Code: D70.9 Status: Acute Assessment and Plan Neutropenic sepsis - Vancomycin/Zosyn - panculture - ID eval Leukopenia - Hematology consult - Neupogen Anxiety - Xanax PRN Depression -Trazodone COPD - no exacerbation - Symbicort - Guaifenesin - Spiriva - DuoNeb Tobacco dependency - Nicotine patch GERD - Famotidine Neuropathy - Gabapentin - Oxycodone Renal Failure - i.v. fluids - I&O - Nephrology consult DVT/GI prophylaxis - TEDs/SCDs/Pepcid Critical Care: The total critical care time was 35 minutes. Time to perform other separately billable procedures was not included in the critical care time. Problem Qualifiers (1) Neutropenia: Qualified Code: D70.9 - Neutropenia, unspecified type Colten Crowell MD Jul 22, 2016 22:54
[2016-07-22] MEDS ORDERED: METOCLOPRAMIDE HCL 10 MG/2 ML VIAL IV PRN (23:00)
[2016-07-22] MEDS ORDERED: ZOLPIDEM TARTRATE 5 MG TAB PO PRN (23:00)
[2016-07-22] MEDS ORDERED: RESP: ALBUTEROL 2.5 MG/IPRATROPIUM 0.5 MG NEB (SCH) INH PRN (23:00)
[2016-07-22] MEDS ORDERED: VANCOMYCIN INJ 1,000 MG in SODIUM CHLOR 0.9% 250 ML INJ 250 ML IV SCH (23:00)
[2016-07-22] MEDS ORDERED: RESP: ALBUTEROL 2.5 MG/IPRATROPIUM 0.5 MG NEB (PRN) INH (23:00)
[2016-07-22] MEDS ORDERED: Vancomycin Consult Pharmacy 1 EA XX SCH (23:00)
[2016-07-22] MEDS ORDERED: CHLORHEXIDINE GLUCONATE 2 % 1 PACK (2 CLOTHS) TOP PRN (23:00)
[2016-07-22] MEDS ORDERED: ONDANSETRON HCL 4 MG/2 ML VIAL IV PRN (23:00)
[2016-07-22] MEDS ORDERED: HYDROmorphone HCL PF 1 MG/ML VIAL IV PRN (23:00)
[2016-07-22] MEDS ORDERED: SODIUM CHLORIDE 0.9% FLUSH 5 ML FLUSH IV FLUSH PRN ×2 (23:00)
[2016-07-22] MEDS ORDERED: PIPERACIL-TAZO 4.5 GM PREMIX 100 ML IV SCH (23:00)
[2016-07-22] MEDS ORDERED: MISCELLANEOUS NURSING INFORMATION XX SCH (23:00)
[2016-07-22] MEDS ORDERED: oxyCODONE/ACETAMINOPHEN 10 MG/325 MG TAB PO PRN (23:15)
[2016-07-22] MEDS: SODIUM CHLOR 0.9% 1000 ML INJ 1,000 ML IV SCH (23:50)
[2016-07-22 23:54] VITALS: O2SAT 98
[2016-07-22] MEDS: RESP: ALBUTEROL 2.5 MG/IPRATROPIUM 0.5 MG NEB (SCH) INH (23:54)
[2016-07-23] VITALS (18 sets, daily range): BP systolic 88–117; BP diastolic 48–60; PULSE 59–73; RESP 16–20; TEMP 96–98.2; O2SAT 94–100
[2016-07-23] MEDS: traZODone HCL 50 MG TAB PO SCH ×2 (00:24→21:47)
[2016-07-23] MEDS ORDERED: SODIUM CHLOR 0.9% 1000 ML INJ 1,000 ML IV ONE ×2 (00:45)
[2016-07-23] MEDS ORDERED: PILL SPLITTER OTHER PRN (00:45)
[2016-07-23] MEDS ORDERED: CHLORHEXIDINE GLUCONATE 2 % 1 PACK (2 CLOTHS) TOP SCH (04:00)
--- NOTE | 2016-07-23 08:32 | EKG ---
Date Performed: 07/22/2016 Time Performed: 22:04:03 PTAGE: 65 years EKG: Sinus rhythm WITH OCCASIONAL SUPRAVENTRICULAR PREMATURE COMPLEXES BORDERLINE ECG PREVIOUS TRACING : 07/22/2016 22.03, image not available DOCTOR: Lalit Prescott Interpretating Date/Time 07/23/2016 08:31:00
[2016-07-23] MEDS: PIPERACIL-TAZO 2.25 GM PREMIX 50 ML IV SCH ×2 (08:52→22:14)
[2016-07-23] MEDS: REMOVE OLD PATCH T-DERMAL SCH (08:52)
[2016-07-23] MEDS: SODIUM CHLOR 0.9% 1000 ML INJ 1,000 ML IV SCH (08:52)
[2016-07-23] MEDS: NICOTINE 21 MG/24 HR PATCH T-DERMAL SCH (08:52)
[2016-07-23] MEDS: FAMOTIDINE 20 MG TAB PO SCH ×2 (08:53→21:47)
[2016-07-23] MEDS: DOCUSATE SODIUM 100 MG CAP PO SCH ×2 (08:53→21:47)
[2016-07-23] MEDS: GABAPENTIN 100 MG CAP PO SCH ×3 (08:53→17:14)
[2016-07-23] MEDS: guaiFENesin E.R. 600 MG TAB PO SCH ×3 (08:53→17:14)
[2016-07-23] MEDS: ASPIRIN EC 81 MG TABEC PO SCH (08:53)
[2016-07-23] MEDS: SODIUM CHLORIDE 0.9% FLUSH 5 ML FLUSH IV FLUSH SCH ×2 (08:55→21:47)
[2016-07-23] MEDS: ACETAMINOPHEN 325 MG TAB PO PRN (08:55)
[2016-07-23] MEDS ORDERED: SODIUM CHLORIDE 0.9% FLUSH 5 ML FLUSH IV FLUSH SCH (09:00)
[2016-07-23] MEDS ORDERED: FAMOTIDINE 20 MG TAB PO SCH (09:00)
[2016-07-23] MEDS: RESP: ALBUTEROL 2.5 MG/IPRATROPIUM 0.5 MG NEB (SCH) INH ×3 (09:12→20:50)
--- NOTE | 2016-07-23 09:32 | HHI.PR ---
Subjective Remarks The patient says that she has diffuse aches and pains. She says she was recently on antibiotics. She wants to know when she will have to start dialysis. She said she had her fistula placed about 3 weeks ago. She says she was in a lot of pain and does well with oxycodone. She is working on quitting smoking. Discussed with nursing. Objective Vitals Vital Signs Date Time Temp Pulse Resp B/P Pulse Ox O2 Delivery O2 Flow Rate FiO2 07/23/16 09:14 98 21 07/23/16 09:07 63 117/59 94 Nasal Cannula 2 07/23/16 06:00 62 100/51 07/23/16 05:00 60 16 112/57 98 Nasal Cannula 2 07/23/16 04:00 62 16 106/55 98 Nasal Cannula 2 07/23/16 03:00 64 101/51 07/23/16 02:30 72 16 91/51 99 Nasal Cannula 2 07/23/16 02:05 63 16 88/52 07/23/16 01:24 68 16 101/49 99 Nasal Cannula 2 07/23/16 00:36 67 16 88/48 97 Nasal Cannula 2 07/22/16 23:54 98 Nasal Cannula 2.00 07/22/16 22:31 68 18 101/58 99 Nasal Cannula 2 07/22/16 21:59 18 07/22/16 20:28 68 18 98 07/22/16 19:49 97.6 66 14 94/50 98 I/O 07/22/16 07/22/16 07/22/16 07/23/16 07/23/16 07/23/16 07:00 15:00 23:00 07:00 15:00 23:00 Intake Total 2000 ml Balance 2000 ml Intake IV Total 2000 ml Result Diagram: 07/22/16211407/22/162114 Imaging Last Impressions Head CT 07/22/162057 Signed Impressions: Service Date/Time: Friday, July 22, 2016 21:12 - CONCLUSION: Moderate atrophy. No acute findings in the brain. 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 Air-fluid levels in both maxillary sinuses suggest acute maxillary sinusitis. Claudy Denis MD Chest X-Ray 07/22/162048 Signed Impressions: Service Date/Time: Friday, July 22, 2016 20:52 - CONCLUSION: Stable left lung infiltrate. Claudy Denis MD Objective Remarks GENERAL: Well-nourished, well-developed patient. SKIN: Warm and dry. HEAD: Normocephalic. EYES: No scleral icterus. No injection or drainage. NECK: Supple, trachea midline. No JVD or lymphadenopathy. CARDIOVASCULAR: Regular rate and rhythm without murmurs, gallops, or rubs. RESPIRATORY: Breath sounds equal bilaterally. No accessory muscle use. GASTROINTESTINAL: Abdomen soft, non-tender, nondistended. MUSCULOSKELETAL: No cyanosis, or edema. BACK: Nontender without obvious deformity. No CVA tenderness. NEURO: No gross deficits. PSYCH: Mood and affect appropriate. Medications and IVs Current Medications Medications (Trade) Dose Ordered Sig/Carlos Route Start Time Stop Time Status Last Admin (NS 1000 ml Inj) 1,000 ml @ 150 mls/hr Q6H40M IV 07/22/16 22:55 07/23/16 08:52 (Tylenol) 650 mg Q6H PRN PO 07/22/16 23:00 07/23/16 08:55 (Dilaudid Pf Inj) 1 mg Q4H PRN IV 07/22/16 23:00 (Pepcid) 10 mg Q12HR PO 07/23/16 09:00 07/23/16 08:53 (Zofran Inj) 4 mg Q6H PRN IV 07/22/16 23:00 (Reglan Inj) 5 mg Q6H PRN IV 07/22/16 23:00 (Colace) 100 mg BID PO 07/23/16 09:00 07/23/16 08:53 (Ambien) 5 mg HS PRN PO 07/22/16 23:00 Miscellaneous Information 1 Q361D XX 07/22/16 23:00 (Chlorhexidine 2% Cloth) 3 pack Taper DAILY@04 TOP 07/23/16 04:00 07/19/17 03:59 (Chlorhexidine 2% Cloth) 3 pack UNSCH PRN TOP 07/22/16 23:00 (NS Flush) 2 ml UNSCH PRN IV FLUSH 07/22/16 23:00 IV Flush 2 ml 2 ml BID IV FLUSH 07/23/16 09:00 07/23/16 08:55 (Vancomycin Consult Pharmacy) 0 ml @ 0 mls/hr UNSCH XX 07/22/16 23:00 (Xanax) 0.5 mg Q12H PRN PO 07/22/16 23:15 (Ecotrin Ec) 81 mg DAILY PO 07/23/16 09:00 07/23/16 08:53 (Symbicort 160-4.5 Inh) 2 puff Q12HR INH 07/23/16 09:00 (Neurontin) 100 mg TID PO 07/23/16 09:00 07/23/16 08:53 (Mucinex Er) 600 mg TID PO 07/23/16 09:00 07/23/16 08:53 (Habitrol 21 Mg Patch.24 Hr) 1 patch DAILY T-DERMAL 07/23/16 09:00 07/23/16 08:52 (Spiriva Inh) 18 mcg DAILY INH 07/23/16 09:00 (Desyrel) 150 mg HS PO 07/22/16 23:15 07/23/16 00:24 (Detrol La) 2 mg DAILY PO 07/23/16 09:00 Miscellaneous Information 1 DAILY T-DERMAL 07/23/16 09:00 07/23/16 08:52 Oxycodone/ Acetaminophen 1 tab 1 tab Q4H PRN PO 07/22/16 23:15 (Zosyn 2.25 Gm Premix) 50 ml @ 100 mls/hr Q8HR IV 07/23/16 06:00 07/23/16 08:52 (Pill Splitter) 1 ea UNSCH PRN OTHER 07/23/16 00:45 A/P Assessment and Plan Neutropenia/ pneumonia The pt has a history of neutropenia for which she was followed by a job placement counselor. She received Neupogen earlier this month. The pt was found to have an ANC of 0.6. CXR with left sided infiltrate. - continue vancomycin/ Zosyn. - panculture. - ID eval pending. - follow CBC with diff. Hematology consult if needed. Lung cancer The pt is s/p treatment with surgery and radiation and is currently in remission. Has neutropenia as above. - consult oncology vs outpt follow-up. COPD Not in exacerbation at this time. Still smoking 6-8 cigarettes daily. - Symbicort, guaifenesin, Spiriva, DuoNeb. - Nicotine patch. - smoking cessation instruction. Renal Failure Creatinine was found to be 4.68. She has stage 5 renal disease for which she was followed by a slag expander. She had a fistula placed about three weeks ago. - IVFs. - follow urine output. - Nephrology consult pending. - avoid nephrotoxic agents. PPx: Heparin. Discharge Planning Awaiting clinical improvement. Nirav Ortiz DO Jul 23, 2016 09:32
[2016-07-23] MEDS: ALPRAZolam 0.5 MG TAB PO PRN ×2 (10:10→21:54)
[2016-07-23] MEDS ORDERED: LACTULOSE SYRUP 20 GM/30 ML CUP PO ONE (10:30)
--- NOTE | 2016-07-23 11:18 | PD.CONS ---
HPI Service Nephrology Consult Requested By Dr. 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 She received volume resuscitation as blood pressure was low. Patient was supposed to be seen at the office and she made the appointment as she recently moved from [place] to this area. Review of Systems Constitutional: COMPLAINS OF: Fatigue Respiratory: COMPLAINS OF: Cough Gastrointestinal: COMPLAINS OF: Nausea Past Family Social History Allergies: Coded Allergies: Cipro (Verified Allergy, Unknown, 07/22/16) Codeine (Verified Allergy, Unknown, 07/22/16) Morphine (Verified Allergy, Unknown, 07/22/16) Past Medical History Diabetes Chronic kidney disease Approaching ESRD Anemia Pancytopenia Lung cancer status post radiation Hypertension Past Surgical History Left lung Left forearm AV fistula Cholecystectomy Tubal ligation Brain aneurysm Reported Medications Reported Meds & Active Scripts Active Reported Duoneb (Ipratropium-Albuterol Neb) 0.5-2.5 Mg/3 Ml Neb 1 Nebule INH Q6HR NEB Alprazolam 0.5 Mg Tab 0.5 Mg PO Q12HR PRN Aspirin 81 (Aspirin) 81 Mg Tabdr 81 Mg PO DAILY Famotidine 20 Mg Tab 20 Mg PO DAILY Docusate Sodium 100 Mg Cap 100 Mg PO BID Vitamin D3 (Cholecalciferol) 2,000 Unit Tab 2,000 Units PO DAILY Spiriva Handihaler (Tiotropium Inh) 18 Mcg Cap 18 Mcg INH DAILY 1 capsule = 18 mcg Tolterodine (Tolterodine Tartrate) 1 Mg Tab 1 Mg PO DAILY Symbicort Inh (Budesonide/Formoterol Fumarate) 160-4.5 Mcg/Act Aero 2 Puff INH Q12HR Nicoderm CQ Patch (Nicotine) 21 Mg/24 Hr Patch 21 Mg T-DERMAL DAILY Mucinex ER 12 HR (Guaifenesin) 600 Mg Melania 600 Mg PO TID Trazodone (Trazodone HCl) 150 Mg Tab 150 Mg PO HS Oxycodone Hydrochloride (Oxycodone HCl) 5 Mg Cap 10 Mg Gabapentin 100 Mg Cap 100 Mg PO TID Active Ordered Medications Current Medications Medications (Trade) Dose Ordered Sig/Carlos Route Start Time Stop Time Status Last Admin (NS 1000 ml Inj) 1,000 ml @ 150 mls/hr Q6H40M IV 07/22/16 22:55 07/23/16 08:52 (Tylenol) 650 mg Q6H PRN PO 07/22/16 23:00 07/23/16 08:55 (Pepcid) 10 mg Q12HR PO 07/23/16 09:00 07/23/16 08:53 (Zofran Inj) 4 mg Q6H PRN IV 07/22/16 23:00 (Reglan Inj) 5 mg Q6H PRN IV 07/22/16 23:00 (Colace) 100 mg BID PO 07/23/16 09:00 07/23/16 08:53 (Ambien) 5 mg HS PRN PO 07/22/16 23:00 Miscellaneous Information 1 Q361D XX 07/22/16 23:00 (Chlorhexidine 2% Cloth) 3 pack Taper DAILY@04 TOP 07/23/16 04:00 07/19/17 03:59 (Chlorhexidine 2% Cloth) 3 pack UNSCH PRN TOP 07/22/16 23:00 (NS Flush) 2 ml UNSCH PRN IV FLUSH 07/22/16 23:00 IV Flush 2 ml 2 ml BID IV FLUSH 07/23/16 09:00 07/23/16 08:55 (Vancomycin Consult Pharmacy) 0 ml @ 0 mls/hr UNSCH XX 07/22/16 23:00 (Xanax) 0.5 mg Q12H PRN PO 07/22/16 23:15 07/23/16 10:10 (Ecotrin Ec) 81 mg DAILY PO 07/23/16 09:00 07/23/16 08:53 (Symbicort 160-4.5 Inh) 2 puff Q12HR INH 07/23/16 09:00 (Neurontin) 100 mg TID PO 07/23/16 09:00 07/23/16 08:53 (Mucinex Er) 600 mg TID PO 07/23/16 09:00 07/23/16 08:53 (Habitrol 21 Mg Patch.24 Hr) 1 patch DAILY T-DERMAL 07/23/16 09:00 07/23/16 08:52 (Spiriva Inh) 18 mcg DAILY INH 07/23/16 09:00 (Desyrel) 150 mg HS PO 07/22/16 23:15 07/23/16 00:24 (Detrol La) 2 mg DAILY PO 07/23/16 09:00 Miscellaneous Information 1 1 DAILY T-DERMAL 07/23/16 09:00 07/23/16 08:52 (Zosyn 2.25 Gm Premix) 50 ml @ 100 mls/hr Q8HR IV 07/23/16 06:00 07/23/16 08:52 (Pill Splitter) 1 ea UNSCH PRN OTHER 07/23/16 00:45 (Heparin Inj) 5,000 units Q8HR SQ 07/23/16 14:00 (Roxicodone) 5 mg Q4H PRN PO 07/23/16 10:00 (Roxicodone) 10 mg Q4H PRN PO 07/23/16 10:00 (Miralax) 17 gm BID PO 07/23/16 10:30 (Senokot) 17.2 mg DAILY PO 07/23/16 10:30 Family History Noncontributory Social History She smokes cigarettes now up to 6 cigarettes a day denies significant alcohol intake Physical Exam Vital Signs Vital Signs Date Time Temp Pulse Resp B/P Pulse Ox O2 Delivery O2 Flow Rate FiO2 07/23/16 10:08 98.2 66 100/53 97 Nasal Cannula 2 07/23/16 09:14 98 21 07/23/16 09:07 63 117/59 94 Nasal Cannula 2 07/23/16 06:00 62 100/51 07/23/16 05:00 60 16 112/57 98 Nasal Cannula 2 07/23/16 04:00 62 16 106/55 98 Nasal Cannula 2 07/23/16 03:00 64 101/51 07/23/16 02:30 72 16 91/51 99 Nasal Cannula 2 07/23/16 02:05 63 16 88/52 07/23/16 01:24 68 16 101/49 99 Nasal Cannula 2 07/23/16 00:36 67 16 88/48 97 Nasal Cannula 2 07/22/16 23:54 98 Nasal Cannula 2.00 07/22/16 22:31 68 18 101/58 99 Nasal Cannula 2 07/22/16 21:59 18 07/22/16 20:28 68 18 98 07/22/16 19:49 97.6 66 14 94/50 98 Physical Exam GENERAL: Well-nourished, well-developed patient. SKIN: Warm and dry. HEAD: Normocephalic. EYES: No scleral icterus. No injection or drainage. NECK: Supple, trachea midline. No JVD or lymphadenopathy. CARDIOVASCULAR: Regular rate and rhythm without murmurs, gallops, or rubs. RESPIRATORY: Breath sounds diminished at bases GASTROINTESTINAL: Abdomen soft, non-tender, nondistended. EXTREMITIES: No cyanosis, or edema. AV fistula left forearm with positive thrill NEUROLOGICAL: Awake, alert, and oriented x 3. Non-focal. Laboratory Laboratory Tests Test 07/22/16 07/22/16 07/22/16 07/23/16 21:15 22:10 22:20 01:00 White Blood Count 1.9 Red Blood Count 3.55 Hemoglobin 9.7 Hematocrit 29.7 Mean Corpuscular Volume 83.6 Mean Corpuscular Hemoglobin 27.4 Mean Corpuscular Hemoglobin 32.8 Concent Red Cell Distribution Width 13.7 Platelet Count 310 Mean Platelet Volume 7.6 Neutrophils (%) (Auto) 30.2 Lymphocytes (%) (Auto) 24.4 Monocytes (%) (Auto) 42.2 Eosinophils (%) (Auto) 0.6 Basophils (%) (Auto) 2.6 Neutrophils # (Auto) 0.6 Lymphocytes # (Auto) 0.5 Monocytes # (Auto) 0.8 Eosinophils # (Auto) 0.0 Basophils # (Auto) 0.1 CBC Comment AUTO DIFF Differential Total Cells 100 Counted Neutrophils % (Manual) 24 Band Neutrophils % 11 Lymphocytes % 34 Monocytes % 27 Eosinophils % 1 Basophils % 3 Neutrophils # (Manual) 0.7 Nucleated Red Blood Cells 1 Differential Comment FINAL DIFF MANUAL Platelet Estimate NORMAL Platelet Morphology Comment NORMAL Red Cell Morphology Comment NORMAL Prothrombin Time 10.7 Prothromb Time International 1.0 Ratio Activated Partial 31.6 Thromboplast Time Sodium Level 138 Potassium Level 4.0 Chloride Level 107 Carbon Dioxide Level 20.5 Anion Gap 11 Blood Urea Nitrogen 56 Creatinine 4.68 Estimat Glomerular Filtration 9 Rate Random Glucose 115 Calcium Level 8.4 Phosphorus Level 5.1 Magnesium Level 2.4 Total Bilirubin 0.6 Aspartate Amino Transf 8 (AST/SGOT) Alanine Aminotransferase 10 (ALT/SGPT) Alkaline Phosphatase 89 Total Creatine Kinase 24 Troponin I LESS THAN 0.02 B-Type Natriuretic Peptide 131 Total Protein 7.7 Albumin 3.1 Thyroid Stimulating Hormone 1.860 3rd Gen Lactic Acid Level 0.5 0.8 Urine Color YELLOW Urine Turbidity HAZY Urine pH 5.0 Urine Specific [place] 1.010 Urine Protein 30 Urine Glucose (UA) NEG Urine Ketones NEG Urine Occult Blood LARGE Urine Nitrite POS Urine Bilirubin NEG Urine Urobilinogen LESS THAN 2.0 Urine Leukocyte Esterase MOD Urine RBC 135 Urine WBC 7 Urine Squamous Epithelial 4 Cells Urine Mucus FEW Microscopic Urinalysis Comment CULTURE INDICATED Date/Time Procedure Status Source Growth 07/23/16 00:20 Gram Stain - Final Resulted Sputum Expectorated Sputum 07/23/16 00:20 Sputum Culture Resulted Sputum Expectorated Sputum Pending 07/22/16 22:20 Urine Culture Received Urine Clean Catch Pending 07/22/16 22:10 Aerobic Blood Culture Received Blood Peripheral Pending 07/22/16 22:10 Anaerobic Blood Culture Received Blood Peripheral Pending Result Diagram: 07/22/16211407/22/162114 Imaging Last Impressions Head CT 07/22/162057 Signed Impressions: Service Date/Time: Friday, July 22, 2016 21:12 - CONCLUSION: Moderate atrophy. No acute findings in the brain. 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 Air-fluid levels in both maxillary sinuses suggest acute maxillary sinusitis. Claudy Denis MD Chest X-Ray 07/22/162048 Signed Impressions: Service Date/Time: Friday, July 22, 2016 20:52 - CONCLUSION: Stable left lung infiltrate. Claudy Denis MD Assessment and Plan Problem List: (1) Chronic kidney disease Plan: Patient has advanced kidney disease and she has AV fistula placed in anticipation of hemodialysis at this point the patient will be observed for any recovery of her renal failure, change ivf add bicarbonate to 1/2NS at 100 cc/hr Continue to monitor BMP Estimated that she was supposed to follow-up in the office (2) COPD (chronic obstructive pulmonary disease) Plan: Patient has been admitted and treated (3) Neutropenia Plan: Likely due to underlying renal failure and cancer (4) Sepsis Plan: She's been started on broad-spectrum antibiotic Problem Qualifiers (1) Chronic kidney disease: Qualified Code: N18.5 - Chronic kidney disease, stage 5 (2) Neutropenia: Qualified Code: D70.9 - Neutropenia, unspecified type (3) Sepsis: Qualified Code: A41.9 - Sepsis, due to unspecified organism Oscar Jurado MD Jul 23, 2016 11:18
[2016-07-23 11:28] LABS: AUTOMATED NEUTROPHIL # 0.8 TH/MM3 (1.8-7.7); BASOPHIL % 1.7 % (0.0-2.0); EOSINOPHIL % 0.3 % (0.0-4.0); HEMATOCRIT 23.7 % (35.0-46.0); LYMPH % 15.8 % (9.0-44.0); LYMPHOCYTE # 0.3 TH/MM3 (1.0-4.8); MEAN CELL VOLUME 84.1 FL (80.0-100.0); MEAN CORPUSCULAR HEMOGLOBIN 28.3 PG (27.0-34.0); MEAN CORPUSCULAR HGB CONC 33.6 % (32.0-36.0); MONO % 33.6 % (0.0-8.0); NEUT % 48.6 % (16.0-70.0); PLATELET COUNT 212 TH/MM3 (150-450); RED BLOOD COUNT 2.82 MIL/MM3 (4.00-5.30); RED CELL DISTRIBUTION WIDTH 13.6 % (11.6-17.2); WHITE BLOOD COUNT 1.7 TH/MM3 (4.0-11.0)
[2016-07-23 11:35] LABS: HEMO FLAGS AUTO DIFF
[2016-07-23 11:45] LABS: ALKALINE PHOSPHATASE 74 U/L (45-117); ALT (GPT) 11 U/L (10-53); ANION GAP 9 MEQ/L (5-15); AST (GOT) 13 U/L (15-37); BICARBONATE 16.4 MEQ/L (21.0-32.0); BLOOD UREA NITROGEN 45 MG/DL (7-18); CHLORIDE 120 MEQ/L (98-107); GLOMERULAR FILTRATION RATE 12 ML/MIN (>89); POTASSIUM 4.4 MEQ/L (3.5-5.1); SODIUM (NA) 145 MEQ/L (136-145); TOTAL BILIRUBIN ADULT 0.4 MG/DL (0.2-1.0)
[2016-07-23 12:26] LABS: BANDS 12 % (0-6); BASOPHILS 2 % (0-2); EOSINOPHILS 1 % (0-4); NEUTROPHIL # MANUAL DIFF 0.9 TH/MM3 (1.8-7.7); POLYS (SEG NEUTROPHILS) 41 % (16-70); WBC DIFF SAMPLE 100
[2016-07-23 12:27] LABS: PLATELET ESTIMATE SMEAR NORMAL (NORMAL); PLATELET MORPHOLOGY NORMAL (NORMAL); SCAN/DIFF FINAL DIFF MANUAL
[2016-07-23] MEDS: BUDESONIDE-FORMOTEROL 160/4.5 MCG INHALER INH SCH ×2 (13:03→21:48)
[2016-07-23] MEDS: TIOTROPIUM BROMIDE 18 MCG INH INH SCH (13:04)
[2016-07-23] MEDS: SENNOSIDES 8.6 MG TAB PO SCH (13:04)
[2016-07-23] MEDS: POLYETHYLENE GLYCOL 17 GM PKG PO SCH ×2 (13:04→21:47)
[2016-07-23] MEDS: TOLTERODINE TARTRATE 2 MG CAP LA PO SCH (13:05)
[2016-07-23] MEDS: HEPARIN SODIUM - SQ 10,000 UNITS/ML VIAL SQ SCH ×2 (14:34→21:46)
[2016-07-23] MEDS: SODIUM BICARBONATE 8.4% INJ 100 MEQ in SODIUM CHLOR 0.45% 1000 ML INJ 1,000 ML IV SCH (22:14)
[2016-07-24] VITALS (13 sets, daily range): BP systolic 83–132; BP diastolic 46–60; PULSE 63–88; RESP 16–19; TEMP 96.2–98.3; O2SAT 96–99
[2016-07-24] MEDS: RESP: ALBUTEROL 2.5 MG/IPRATROPIUM 0.5 MG NEB (SCH) INH ×4 (04:25→20:00)
[2016-07-24] MEDS: HEPARIN SODIUM - SQ 10,000 UNITS/ML VIAL SQ SCH ×3 (05:22→22:40)
[2016-07-24] MEDS: PIPERACIL-TAZO 2.25 GM PREMIX 50 ML IV SCH ×3 (05:23→22:41)
[2016-07-24 08:01] LABS: HEMATOCRIT 27.6 % (35.0-46.0); MEAN CELL VOLUME 83.4 FL (80.0-100.0); MEAN CORPUSCULAR HEMOGLOBIN 27.6 PG (27.0-34.0); MEAN CORPUSCULAR HGB CONC 33.1 % (32.0-36.0); PLATELET COUNT 234 TH/MM3 (150-450); RED BLOOD COUNT 3.31 MIL/MM3 (4.00-5.30); RED CELL DISTRIBUTION WIDTH 13.9 % (11.6-17.2); WHITE BLOOD COUNT 3.1 TH/MM3 (4.0-11.0)
[2016-07-24 08:02] LABS: BICARBONATE 20.4 MEQ/L (21.0-32.0); MAGNESIUM 1.9 MG/DL (1.5-2.5); POTASSIUM 4.4 MEQ/L (3.5-5.1)
--- NOTE | 2016-07-24 08:08 | MB ---
cc: JOHN CARDENAS MD, JAN MD DATE OF CONSULTATION: 07/23/[address] Crowell REASON FOR CONSULTATION Neutropenic sepsis. HISTORY OF PRESENT ILLNESS This is a 65-year-old white female who presented to the emergency department and was noted to have altered mental status. The patient developed generalized weakness and malaise and also complained of headache, back pain, chest pain, cough, abdominal pain and intermittent nausea and vomiting and unsteadiness on her feet. The patient has chronic kidney disease. She was evaluated in the emergency department two days prior for abnormal labs and she was found to have elevated creatinine and also neutropenia. She was due to follow-up with the concrete hopper operator and clinical liaison, however, she presented again for evaluation and is now admitted to the hospital. The patient was evaluated by a clinical liaison in [place] and the put in an AV fistula for dialysis. She states that she has not had hemodialysis in the past. The fistula was just three weeks ago. The patient moved to this region to stay with her family. She has a daughter who lives in [place]. However, she states that she has been feeling progressively weaker. She tells me that she had some chills earlier today. On evaluation in the emergency department her blood pressure was 94/50 and her white count was 1.9. CT scan of the head shows moderate atrophy and air-fluid levels in both maxillary sinuses suggesting acute maxillary sinusitis. The patient has cough and states that she is producing mostly white sputum. She denies chest pain. The chest x-ray is showing stable left lung infiltrate. The patient was given IV fluid boluses and blood pressure improved. Cultures were taken including blood cultures, sputum culture and urine culture. Urinalysis reveals 7 white cells and positive leukocyte esterase. Urine culture is showing immature growth. Sputum culture is pending. Blood culture has no growth in one day. The patient is currently sitting up at the side of the bed. She does not appear to be in any acute distress. She tells me that she feels better than she did yesterday. She is afebrile. Her last temperature measured 98.6. The patient reports that she was in the hospital in [place] in March to April with pneumonia. She does not have much details about the treatment. This consultation is requested for infection evaluation and management. PAST MEDICAL HISTORY 1. Non-small cell lung cancer. 2. Chronic kidney disease. 3. Pancytopenia. 4. Hypertension. 5. Left forearm AV fistula. 6. Cholecystectomy. 7. Tubal ligation. 8. Aneurysm. 9. Diabetes mellitus. ALLERGIES 1. CIPRO. 2. CODEINE. 3. MORPHINE. MEDICATIONS 1. Piperacillin/tazobactam. 2. Vancomycin; one dose was given yesterday evening. 3. Xanax. 4. Desyrel. 5. DuoNeb. 6. Detrol LA. 7. Spiriva. 8. Nicotine patch. 9. Mucinex. 10.Neurontin. 11.Symbicort. 12.Aspirin. 13.Pepcid. 14.Colace. 15.Oxycodone 10, p.r.n. 16.Senokot. 17.MiraLax. SOCIAL HISTORY The patient lives with her daughter. Positive tobacco use. No alcohol use. No illicit drug use. FAMILY HISTORY Noncontributory. REVIEW OF SYSTEMS Pertinent as mentioned above in the history of present illness including generalized weakness and fatigue, also cough and abdominal pain. PHYSICAL EXAMINATION GENERAL: This is a slender female who is in no acute distress. She appears well-nourished. VITAL SIGNS: Temperature 96.8, BP 91/50, respirations 20, heart rate 63. HEENT: Head is atraumatic. Extraocular movements grossly intact. Pupils reactive to light. No icterus. Oropharynx no visible lesions. NECK: Supple without adenopathy. LUNGS: Slight rhonchi at both bases. HEART: Regular S1 and S2. ABDOMEN: Bowel sounds present. Soft. No tenderness appreciated. No masses palpable. RECTAL: Not performed. EXTREMITIES: The left upper extremity has an IV fistula which appears intact. The rest of the extremities have no edema or lesions. NEUROLOGIC: Nonfocal. SKIN: No rash. LABORATORY DATA WBC 1.7, platelet count 212, 33% monocytes, 15% lymphocytes, 48% neutrophils. Creatinine 3.89, BUN 45, sodium 145. Liver function tests include AST of 13. IMPRESSION 1. Sepsis. 2. Abnormal chest x-ray indicating pneumonia. 3. Urinary tract infection. 4. Neutropenia, probably secondary to sepsis. 5. Acute kidney disease on chronic kidney disease. RECOMMENDATIONS 1. Continue piperacillin/tazobactam. 2. Monitor blood cultures. 3. Monitor sputum culture. 4. Monitor the urine culture. 5. Monitor clinical status. 6. Adjustment of antibiotics depending on the cultures. The patient appears clinically stable at this time and appears to have responded to fluid bolus to IV fluid boluses. Thank you this consultation. The patient's progress will be monitored and further recommendations will be given upon follow-up if indicated. John Cardenas MD FD/SUNDAR /6:43 PM /7:46 AM MUNIRA
[2016-07-24 08:31] LABS: HEMO FLAGS AUTO DIFF
[2016-07-24] MEDS: POLYETHYLENE GLYCOL 17 GM PKG PO SCH ×2 (08:33→21:00)
[2016-07-24 08:34] LABS: BANDS 3 % (0-6); BASOPHILS 4 % (0-2); EOSINOPHILS 1 % (0-4); NEUTROPHIL # MANUAL DIFF 1.4 TH/MM3 (1.8-7.7); POLYS (SEG NEUTROPHILS) 42 % (16-70); WBC DIFF SAMPLE 100
[2016-07-24] MEDS: NICOTINE 21 MG/24 HR PATCH T-DERMAL SCH (08:34)
[2016-07-24] MEDS: REMOVE OLD PATCH T-DERMAL SCH (08:34)
[2016-07-24] MEDS: guaiFENesin E.R. 600 MG TAB PO SCH ×3 (08:34→16:36)
[2016-07-24 08:35] LABS: PLATELET ESTIMATE SMEAR NORMAL (NORMAL); PLATELET MORPHOLOGY NORMAL (NORMAL); SCAN/DIFF FINAL DIFF MANUAL
[2016-07-24] MEDS: GABAPENTIN 100 MG CAP PO SCH ×3 (08:35→16:37)
[2016-07-24] MEDS: TOLTERODINE TARTRATE 2 MG CAP LA PO SCH (08:35)
[2016-07-24] MEDS: ASPIRIN EC 81 MG TABEC PO SCH (08:35)
[2016-07-24] MEDS: DOCUSATE SODIUM 100 MG CAP PO SCH ×2 (08:35→22:39)
[2016-07-24] MEDS: TIOTROPIUM BROMIDE 18 MCG INH INH SCH (08:36)
[2016-07-24] MEDS: BUDESONIDE-FORMOTEROL 160/4.5 MCG INHALER INH SCH ×2 (08:36→22:41)
[2016-07-24] MEDS: SENNOSIDES 8.6 MG TAB PO SCH (08:36)
[2016-07-24] MEDS: FAMOTIDINE 20 MG TAB PO SCH (08:36)
[2016-07-24] MEDS: SODIUM CHLORIDE 0.9% FLUSH 5 ML FLUSH IV FLUSH SCH ×2 (08:37→22:41)
[2016-07-24] MEDS ORDERED: BISACODYL 10 MG SUPP RECTAL ONE (08:45)
--- NOTE | 2016-07-24 10:53 | HHI.PR ---
Subjective Remarks The patient was resting comfortably in bed. She wanted to know when she would be going home. She had questions about dialysis. She still has not had a bowel movement. Discussed with nursing. Objective Vitals Vital Signs Date Time Temp Pulse Resp B/P Pulse Ox O2 Delivery O2 Flow Rate FiO2 07/24/16 09:05 99 Nasal Cannula 2.00 07/24/16 08:00 96.2 71 18 114/55 96 07/24/16 06:19 96.9 73 18 102/58 96 07/24/16 04:27 96 Nasal Cannula 2.00 07/24/16 01:45 98/50 07/24/16 00:00 97.8 64 16 83/46 98 07/23/16 23:30 70 07/23/16 21:00 96.0 62 18 99/50 95 07/23/16 20:52 95 Nasal Cannula 3.00 07/23/16 18:03 59 07/23/16 16:13 96.8 63 20 91/50 100 07/23/16 14:40 98.2 68 20 113/60 100 3 07/23/16 11:53 73 20 100/58 98 Nasal Cannula 2 I/O 07/23/16 07/23/16 07/23/16 07/24/16 07/24/16 07/24/16 07:00 15:00 23:00 07:00 15:00 23:00 Intake Total 2000 ml 240 ml Balance 2000 ml 240 ml Intake Oral 240 ml IV Total 2000 ml # Voids 1 # Bowel Movements 0 Result Diagram: 07/24/16 0650 07/24/16 0650 Imaging Last Impressions Head CT 07/22/162057 Signed Impressions: Service Date/Time: Friday, July 22, 2016 21:12 - CONCLUSION: Moderate atrophy. No acute findings in the brain. 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 Air-fluid levels in both maxillary sinuses suggest acute maxillary sinusitis. Claudy Denis MD Chest X-Ray 07/22/162048 Signed Impressions: Service Date/Time: Friday, July 22, 2016 20:52 - CONCLUSION: Stable left lung infiltrate. Claudy Denis MD Objective Remarks GENERAL: Well-nourished, well-developed patient. SKIN: Warm and dry. HEAD: Normocephalic. EYES: No scleral icterus. No injection or drainage. NECK: Supple, trachea midline. No JVD or lymphadenopathy. CARDIOVASCULAR: Regular rate and rhythm without murmurs, gallops, or rubs. RESPIRATORY: Crackles noted at the bases. GASTROINTESTINAL: Abdomen soft, non-tender, nondistended. MUSCULOSKELETAL: No cyanosis, or edema. BACK: Nontender without obvious deformity. No CVA tenderness. NEURO: No gross deficits. PSYCH: Mood and affect appropriate. Medications and IVs Current Medications Medications (Trade) Dose Ordered Sig/Carlos Route Start Time Stop Time Status Last Admin (Tylenol) 650 mg Q6H PRN PO 07/22/16 23:00 07/23/16 08:55 (Pepcid) 10 mg Q12HR PO 07/23/16 09:00 07/24/16 08:36 (Zofran Inj) 4 mg Q6H PRN IV 07/22/16 23:00 (Reglan Inj) 5 mg Q6H PRN IV 07/22/16 23:00 (Colace) 100 mg BID PO 07/23/16 09:00 07/24/16 08:35 (Ambien) 5 mg HS PRN PO 07/22/16 23:00 Miscellaneous Information 1 Q361D XX 07/22/16 23:00 (NS Flush) 2 ml UNSCH PRN IV FLUSH 07/22/16 23:00 (NS Flush) 2 ml BID IV FLUSH 07/23/16 09:00 07/24/16 08:37 (Xanax) 0.5 mg Q12H PRN PO 07/22/16 23:15 07/23/16 21:54 (Ecotrin Ec) 81 mg DAILY PO 07/23/16 09:00 07/24/16 08:35 (Symbicort 160-4.5 Inh) 2 puff Q12HR INH 07/23/16 09:00 07/24/16 08:36 (Neurontin) 100 mg TID PO 07/23/16 09:00 07/24/16 08:35 (Mucinex Er) 600 mg TID PO 07/23/16 09:00 07/24/16 08:34 (Habitrol 21 Mg Patch.24 Hr) 1 patch DAILY T-DERMAL 07/23/16 09:00 07/24/16 08:34 (Spiriva Inh) 18 mcg DAILY INH 07/23/16 09:00 07/24/16 08:36 (Desyrel) 150 mg HS PO 07/22/16 23:15 07/23/16 21:47 (Detrol La) 2 mg DAILY PO 07/23/16 09:00 07/24/16 08:35 Miscellaneous Information 1 1 DAILY T-DERMAL 07/23/16 09:00 07/24/16 08:34 (Zosyn 2.25 Gm Premix) 50 ml @ 100 mls/hr Q8HR IV 07/23/16 06:00 07/24/16 05:23 (Pill Splitter) 1 ea UNSCH PRN OTHER 07/23/16 00:45 (Heparin Inj) 5,000 units Q8HR SQ 07/23/16 14:00 07/24/16 05:22 (Roxicodone) 5 mg Q4H PRN PO 07/23/16 10:00 (Roxicodone) 10 mg Q4H PRN PO 07/23/16 10:00 07/23/16 21:55 (Miralax) 17 gm BID PO 07/23/16 10:30 07/24/16 08:33 Sennosides 17.2 mg 17.2 mg DAILY PO 07/23/16 10:30 07/24/16 08:36 (Sodium Bicarbonate 8.4% Inj/06/25 NS 1000 ml Inj) 1,100 ml @ 100 mls/hr Q11H IV 07/23/16 14:00 07/23/16 22:14 A/P Assessment and Plan Neutropenia/ pneumonia The pt has a history of neutropenia for which she was followed by a regional sales engineer. She received Neupogen earlier this month. The pt was found to have an ANC of 0.6. CXR with left sided infiltrate. ID consult appreciated. Neutropenia has improved. - continue Zosyn. Follow up with ID. - panculture. - follow CBC with diff. Hematology consult requested. Lung cancer The pt is s/p treatment with surgery and radiation and is currently in remission. Has neutropenia as above. - consult oncology. COPD Not in exacerbation at this time. Still smoking 6-8 cigarettes daily. - Symbicort, guaifenesin, Spiriva, DuoNeb. - Nicotine patch. - smoking cessation instruction. Renal Failure Creatinine was found to be 4.68. She has stage 5 renal disease for which she was followed by a tube machine operator. She had a fistula placed about three weeks ago. Appreciate nephrology input. - IVFs. - follow urine output. - Nephrology follow-up. - avoid nephrotoxic agents. PPx: Heparin. Discharge Planning Awaiting clinical improvement. Nirav Ortiz DO Jul 24, 2016 10:53
[2016-07-24] MEDS ORDERED: SOD PHOSPHATE/SOD BIPHOSPHATE (ADULT) ENEMA 133ML PR ONE (11:00)
[2016-07-24] MEDS: SODIUM BICARBONATE 8.4% INJ 100 MEQ in SODIUM CHLOR 0.45% 1000 ML INJ 1,000 ML IV SCH (13:52)
--- NOTE | 2016-07-24 18:33 | HHI.IDPN ---
Note Infectious Disease Note Patient feels better. Alert. No SOB, THOMAS, chest discomfort. Mild dry cough. Says she feels cold but no ramon chills. Afebrile. Presented with altered mental status, weakness, malaise, headache, back pain, chest pain. cough, abdominal pain and intermittent nausea and vomiting. Found to be neutropenic. PAST MEDICAL HISTORY 1. Non-small cell lung cancer. 2. Chronic kidney disease. 3. Pancytopenia. 4. Hypertension. 5. Left forearm AV fistula. 6. Cholecystectomy. 7. Tubal ligation. 8. Aneurysm. 9. Diabetes mellitus. ALLERGIES 1. CIPRO. 2. CODEINE. 3. MORPHINE. ANTIBIOTICS Piperacillin/tazobactam. OBJECTIVE: Vital Signs Date Time Temp Pulse Resp B/P Pulse Ox O2 Delivery O2 Flow Rate FiO2 07/24/16 16:00 97.3 64 19 103/53 96 07/24/16 12:00 97.8 88 16 90/51 98 07/24/16 09:05 99 Nasal Cannula 2.00 07/24/16 08:00 96.2 71 18 114/55 96 07/24/16 06:19 96.9 73 18 102/58 96 07/24/16 04:27 96 Nasal Cannula 2.00 07/24/16 01:45 98/50 07/24/16 00:00 97.8 64 16 83/46 98 07/23/16 23:30 70 07/23/16 21:00 96.0 62 18 99/50 95 07/23/16 20:52 95 Nasal Cannula 3.00 07/23/16 07/23/16 07/24/16 15:00 23:00 07:00 Intake Total 240 ml Balance 240 ml Intake Oral 240 ml # Voids 1 # Bowel Movements 0 Laboratory Tests Test 07/22/16 07/23/16 07/24/16 21:15 10:13 06:50 White Blood Count 1.9 TH/MM3 1.7 TH/MM3 3.1 TH/MM3 Red Blood Count 3.55 MIL/MM3 2.82 MIL/MM3 3.31 MIL/MM3 Hemoglobin 9.7 GM/DL 8.0 GM/DL 9.1 GM/DL Hematocrit 29.7 % 23.7 % 27.6 % Mean Corpuscular Volume 83.6 FL 84.1 FL 83.4 FL Mean Corpuscular Hemoglobin 27.4 PG 28.3 PG 27.6 PG Mean Corpuscular Hemoglobin 32.8 % 33.6 % 33.1 % Concent Red Cell Distribution Width 13.7 % 13.6 % 13.9 % Platelet Count 310 TH/MM3 212 TH/MM3 234 TH/MM3 Mean Platelet Volume 7.6 FL 6.9 FL 8.2 FL Neutrophils (%) (Auto) 30.2 % 48.6 % % Lymphocytes (%) (Auto) 24.4 % 15.8 % % Monocytes (%) (Auto) 42.2 % 33.6 % % Eosinophils (%) (Auto) 0.6 % 0.3 % % Basophils (%) (Auto) 2.6 % 1.7 % % Neutrophils # (Auto) 0.6 TH/MM3 0.8 TH/MM3 TH/MM3 Lymphocytes # (Auto) 0.5 TH/MM3 0.3 TH/MM3 TH/MM3 Monocytes # (Auto) 0.8 TH/MM3 0.6 TH/MM3 TH/MM3 Eosinophils # (Auto) 0.0 TH/MM3 0.0 TH/MM3 TH/MM3 Basophils # (Auto) 0.1 TH/MM3 0.0 TH/MM3 TH/MM3 CBC Comment AUTO DIFF AUTO DIFF AUTO DIFF Differential Total Cells 100 100 100 Counted Neutrophils % (Manual) 24 % 41 % 42 % Band Neutrophils % 11 % 12 % 3 % Lymphocytes % 34 % 16 % 23 % Monocytes % 27 % 28 % 27 % Eosinophils % 1 % 1 % 1 % Basophils % 3 % 2 % 4 % Neutrophils # (Manual) 0.7 TH/MM3 0.9 TH/MM3 1.4 TH/MM3 Nucleated Red Blood Cells 1 /100 WBC Differential Comment FINAL DIFF FINAL DIFF FINAL DIFF MANUAL MANUAL MANUAL Platelet Estimate NORMAL NORMAL NORMAL Platelet Morphology Comment NORMAL NORMAL NORMAL Red Cell Morphology Comment NORMAL NORMAL NORMAL Hematology Comments Laboratory Tests Test 07/22/16 07/22/16 07/23/16 07/23/16 21:15 22:10 01:00 10:13 Sodium Level 138 MEQ/L 145 MEQ/L Potassium Level 4.0 MEQ/L 4.4 MEQ/L Chloride Level 107 MEQ/L 120 MEQ/L Carbon Dioxide Level 20.5 MEQ/L 16.4 MEQ/L Anion Gap 11 MEQ/L 9 MEQ/L Blood Urea Nitrogen 56 MG/DL 45 MG/DL Creatinine 4.68 MG/DL 3.89 MG/DL Estimat Glomerular Filtration 9 ML/MIN 12 ML/MIN Rate Random Glucose 115 MG/DL 76 MG/DL Calcium Level 8.4 MG/DL 7.7 MG/DL Phosphorus Level 5.1 MG/DL Magnesium Level 2.4 MG/DL Total Bilirubin 0.6 MG/DL 0.4 MG/DL Aspartate Amino Transf 8 U/L 13 U/L (AST/SGOT) Alanine Aminotransferase 10 U/L 11 U/L (ALT/SGPT) Alkaline Phosphatase 89 U/L 74 U/L Total Creatine Kinase 24 U/L Troponin I LESS THAN 0.02 NG/ML B-Type Natriuretic Peptide 131 PG/ML Total Protein 7.7 GM/DL 5.9 GM/DL Albumin 3.1 GM/DL 2.3 GM/DL Thyroid Stimulating Hormone 1.860 uIU/ML 3rd Gen Lactic Acid Level 0.5 mmol/L 0.8 mmol/L Test 07/24/16 06:50 Sodium Level 144 MEQ/L Potassium Level 4.4 MEQ/L Chloride Level 113 MEQ/L Carbon Dioxide Level 20.4 MEQ/L Anion Gap 11 MEQ/L Blood Urea Nitrogen 39 MG/DL Creatinine 3.84 MG/DL Estimat Glomerular Filtration 12 ML/MIN Rate Random Glucose 70 MG/DL Calcium Level 8.0 MG/DL Magnesium Level 1.9 MG/DL Microbiology Date/Time Procedure Status Source Growth 07/22/16 22:00 Aerobic Blood Culture - Preliminary Resulted Blood Peripheral NO GROWTH IN 2 DAYS 07/22/16 22:00 Anaerobic Blood Culture - Preliminary Resulted Blood Peripheral NO GROWTH IN 2 DAYS 07/22/16 22:10 Aerobic Blood Culture - Preliminary Resulted Blood Peripheral NO GROWTH IN 2 DAYS 07/22/16 22:10 Anaerobic Blood Culture - Preliminary Resulted Blood Peripheral NO GROWTH IN 2 DAYS 07/22/16 22:20 Urine Culture - Preliminary Resulted Urine Clean Catch Gram Negative Shree 07/23/16 00:20 Gram Stain - Final Resulted Sputum Expectorated Sputum 07/23/16 00:20 Sputum Culture - Preliminary Resulted Sputum Expectorated Sputum HEAVY GROWTH NORMAL RESPIRATORY KASIA... PHYSICAL EXAMINATION GENERAL: No acute distress. She appears well-nourished. HEENT: No icterus. Oropharynx no visible lesions. NECK: Supple without adenopathy. LUNGS: Slight rhonchi at the r. base. HEART: Regular S1 and S2. ABDOMEN: Bowel sounds present. Soft. No tenderness appreciated. EXTREMITIES: The left upper extremity has an IV fistula which appears intact. No edema or lesions. NEUROLOGIC: Nonfocal. SKIN: No rash. IMPRESSION 1. Sepsis. 2. Abnormal chest x-ray indicating pneumonia. 3. Urinary tract infection. Gram negative ID pending. 4. Neutropenia, probably secondary to sepsis. Improving. 5. Acute kidney disease on chronic kidney disease. RECOMMENDATIONS 1. Continue piperacillin/tazobactam. 2. Monitor blood cultures. 3. Monitor sputum culture. 4. Monitor the urine culture. 5. Monitor clinical status. 6. Repeat CXR in am. D/W Patient's daughter who is her POA. Kameron Santos MD Jul 24, 2016 18:33
--- NOTE | 2016-07-24 19:18 | MB ---
cc: TRICIA HUTCHINSON MD, MD,[facility] H[facility]AT[facility] ONCOLOGY NOTE DATE OF CONSULTATION 07/24/16 DATE OF [address] Jyothi White REQUESTED PHYSICIAN Consult requested by the [facility] hospitalist service. REASON FOR CONSULTATION Patient with neutropenia (mild to moderate). She also has a reported history of squamous cell carcinoma of the left lung which was surgically resected about three years ago. CHIEF COMPLAINT Ms. Hylton was brought into the emergency department by her daughter on 07/22/2016 after she was found to be oversedated, generally lethargic and progressively weak. HISTORY OF PRESENT ILLNESS Ms. Hylton is a chronically ill 65-year-old female who recently relocated from [place] to the [facility] to be closer to family. Ms. Hylton has an extensive past history of tobaccoism; greater than 80 pack-year history of smoking and continues to smoke, history of alcohol abuse (currently a recovering alcoholic). She has a history of squamous cell carcinoma of the lung which, per the patient's description, was early stage disease; she underwent a wedge resection followed by radiation. This was all delivered at the [facility], [place] in [place]. Additionally, the patient does have chronic kidney disease, coronary artery disease and significant COPD. The patient had been failing to thrive for the past several months and had multiple hospitalizations in [place]. She moved down to the [facility] to be closer to her daughter, Mariana, who is going to be taking responsibility to care for her mother going forward. Shortly after relocation, the patient was noted to be increasingly fatigued, difficult to arouse usually in the mornings. She was found to have generally low blood pressure and was failing to thrive overall. She established outpatient followup with Dr. Dong who recommended laboratory studies to be done. Initial labs done early last week revealed advanced renal failure, leukopenia, and neutropenia and the patient was advised to come into the emergency department. Upon presentation, the patient was noted to be hypotensive, generally lethargic. She was noted to be hypoxic as well. Over the course of this hospitalization, she has been resuscitated with IV fluids. Her antihypertensive medications have been decreased and, additionally, she has had some of her antidepressants dose reduced. The hematology service is consulted because the patient had neutropenia. Her neutropenia has been managed intermittently with Neupogen injections by her linux admin engineer in [place]. Her ANC today is 1.4, the lowest it has been during this hospitalization was 0.7. PAST MEDICAL HISTORY 1. Personal history of tobaccoism (ongoing) 2. History of COPD. 3. Squamous cell carcinoma of the lung 4. Chronic kidney failure. 5. Coronary artery disease. 6. Arthritis. 7. Peripheral neuropathy. 8. Chronic pain. 9. Anxiety and depression. 10. Past history of alcoholism. PAST SURGICAL HISTORY 1. Thoracotomy on the left side with wedge resection. 2. Coiling of an "aneurysm in the neck". 3. Cholecystectomy 4. Tubal ligation. 5. Heart cath 6. Achilles tendon repair. 7. ORIF of the right ankle. ALLERGIES MORPHINE AND CODEINE - CAUSED HER TO BECOME CONFUSED CIPROFLOXACIN - CAUSES NAUSEA AND VOMITING FAMILY HISTORY Mother of leukemia. Father of hepatic cirrhosis, sister of breast cancer. Brother of lung cancer. SOCIAL HISTORY The patient lives at home with her daughter. She is a smoker. 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 She is a recovering alcoholic. HEALTH CARE MAINTENANCE She is overdue for mammograms. She had a colonoscopy about a year ago. MEDICATIONS Current inpatient 1. Half-normal saline with bicarbonate 100 cc/hour. 2. Zosyn 2.25 grams IV q.8 h. 3. Tylenol 650 mg p.o. q.6 h as needed for fever/pain. 4. DuoNebs 1 ampule 6 hours as needed for wheezing. 5. Alprazolam 0.5 mg p.o. q.6 h as needed for anxiety. 6. Aspirin 81 mg p.o. daily. 7. Symbicort 2 puffs inhaled q.12 h. 8. Colace 100 mg p.o. b.i.d. 9. Gabapentin 10 mg p.o. t.i.d. 10. Guaifenesin 60 mg p.o. t.i.d. 11. Heparin 5000 units subcu q.8 h. 12. Metoclopramide 5 mg IV q.6 h as needed for nausea and vomiting. 13. Nicotine patches 21 mg q.24 h transdermal 14. Zofran 4 mg IV q.6 h as needed for nausea and vomiting. 15. Oxycodone 5 mg p.o. q. 4 hours as needed for pain. 16. Oxycodone 10 mg q.4 h as needed for severe pain. 17. MiraLax 18. Senokot 17.2 mg p.o. daily. 19. Tiotropium 18 mcg inhaled daily. 20. Tolterodine 2 mg p.o. daily. 21. Trazodone 150 mg p.o. q.h.s. 22. Ambien 5 mg p.o. q.h.s. as needed for insomnia. REVIEW OF SYSTEMS 13-point patient completed review of systems: CONSTITUTIONAL: Generalized fatigue, weakness, decreased appetite. She denies fevers, chills or night sweats. HEENT: Denies headaches, blurry vision, difficulty swallowing, soreness in the throat. RESPIRATORY: Report exertional dyspnea, cough, COPD. CARDIOVASCULAR: Denies angina-like chest pain, PND, orthopnea, lower extremity edema, palpitations. GI: Denies nausea, vomiting, diarrhea, hematochezia, melena, abdominal distension, yellow jaundice. UROGENITAL: No complaints. MUSCULOSKELETAL: Generalized fatigue and weakness and reports chronic pain mostly in her back, knees and hips. She also reports self diagnosis of rheumatoid arthritis. ANIMAL RIDE ATTENDANT: No focal sensory motor deficits. LABORATORY FINDINGS Blood work dated 07/24/2016: WBC count 3.1, hemoglobin 9.1 gm/dl, hematocrit 27.6%, platelet count of 234. Absolute neutrophil count 1.4. Chemistries: Sodium 144, potassium 4.4, chloride 113, bicarbonate 20.4, BUN 39, creatinine 3.8, random glucose 70, calcium 8, magnesium 1.9. Total bilirubin 0.4, AST 13, ALT 11, alkaline phosphatase 74. Albumin 2.3. Coags - INR one, PT 10.7, PTT 31.6. ASSESSMENT Ms. Hylton is a 65-year-old female with the above-noted medical comorbid conditions. She was brought into the hospital by her daughter because she was found to be difficult to arouse in the morning of 07/22/2016. Additionally, she was noted to have low blood pressure and just had not been eating well. At the time of admission, she was noted to be hypotensive, dehydrated and in acute on chronic renal failure. She has been initiated on IV fluid hydration, has been evaluated b6y nephrology and seems to be approaching threshold for requiring renal replacement therapy. The hematology service has been consulted because the patient has fluctuating neutrophil counts which, per the family, has been an ongoing issue since March of 2016. In fact, while the patient was still living in [place], she was evaluated by her linux admin engineer and was recommended periodic Neupogen injections for management of neutropenia. The etiology of the neutropenia is yet unknown. I have been asked to see her to further evaluate and address this issue. Additionally from an oncologic standpoint Ms. Hylton has a diagnosis of squamous cell carcinoma which was diagnosed about three years ago while she was still residing in [place]. She underwent surgical resection followed by radiation. RECOMMENDATIONS 1. Neutropenia with fluctuating neutrophil levels: I suspect she may have some form of suppression of the bone marrow/an autoimmune neutropenia given her constellation of findings of what appears to be an inflammatory arthritis, renal failure and multiple antidepressants. Additionally, I have d/jonas the famotidine she had been on, because this is associated with neutropenia. I will review her peripheral smear to rule out dysplastic or dysmorphic findings. Also ordered today were folic acid and vitamin B12 levels. In addition to this, I did review her TSH level as well which were normal at 1.8 which rules hypothyroidism as a potential cause of neutropenia. At this point, I do not feel a bone marrow biopsy is necessary and I also do not recommend initiation of Neupogen until the actual etiology of the neutropenia is identified. MD LUKAS Echeverria/ /5:57 PM /6:51 PM MTDSamir
--- NOTE | 2016-07-24 19:38 | HHI.NPPN ---
Subjective History of Present Illness 65-year-old white female with history of lung cancer, chronic kidney disease who moved to this area having some cough Review of Systems General Constitutional: Fatigue Respiratory Lungs: Cough Objective Data Data 07/23/16 07/24/16 19:00 07:00 Intake Total 240 ml Balance 240 ml Intake Oral 240 ml # Voids 1 # Bowel Movements 0 Vital Signs Date Time Temp Pulse Resp B/P Pulse Ox O2 Delivery O2 Flow Rate FiO2 07/24/16 16:00 97.3 64 19 103/53 96 07/24/16 12:00 97.8 88 16 90/51 98 07/24/16 09:05 99 Nasal Cannula 2.00 07/24/16 08:00 96.2 71 18 114/55 96 07/24/16 06:19 96.9 73 18 102/58 96 07/24/16 06:00 63 07/24/16 04:27 96 Nasal Cannula 2.00 07/24/16 01:45 98/50 07/24/16 00:00 97.8 64 16 83/46 98 07/23/16 23:30 70 07/23/16 21:00 96.0 62 18 99/50 95 07/23/16 20:52 95 Nasal Cannula 3.00 -: 07/24/16 0650 07/24/16 0650 Physical Exam General Appearance: Well Developed Neck Neck Exam: Neck Supple Pulmonary Resp Exam: Decreased Bases Cardiology CV Exam: Regular, Normal Sinus Rhythm Gastrointestinal/Abdomen GI Exam: Soft, Non-Tender, Bowel Sounds Present Integumentary Skin Exam: Clear Neurologic Neuro Exam: Alert, Awake Assessment/Plan Problem List: (1) Chronic kidney disease Plan: Patient has advanced kidney disease and she has AV fistula I will stop the IV fluid as was her bicarbonate improved She can take care of sodium bicarbonate tablets There is no urgent need to start dialysis at this hospitalization creatinine remained at 3.8 (2) COPD (chronic obstructive pulmonary disease) Plan: Patient has been admitted and treated (3) Neutropenia Plan: Improved Likely due to bone marrow dysfunction oncology following (4) Sepsis Plan: She's been started on broad-spectrum antibiotic Problem Qualifiers (1) Chronic kidney disease: Qualified Code: N18.5 - Chronic kidney disease, stage 5 (2) Neutropenia: Qualified Code: D70.9 - Neutropenia, unspecified type (3) Sepsis: Qualified Code: A41.9 - Sepsis, due to unspecified organism Oscar Jurado MD Jul 24, 2016 19:38
[2016-07-24] MEDS: traZODone HCL 50 MG TAB PO SCH (22:39)
[2016-07-24] MEDS: ALPRAZolam 0.5 MG TAB PO PRN (22:39)
[2016-07-24] MEDS: SODIUM BICARBONATE 650 MG TAB PO SCH (22:53)
--- NOTE | 2016-07-24 22:53 | RADRPT ---
EXAM DATE/TIME: 07/24/2016 21:08 [facility] COMPARISON: No previous studies available for comparison. INDICATIONS: Increased BUN and Creatinine. MEDICAL HISTORY: Chronic obstructive pulmonary disease. Carcinoma, lung. Gastroesophageal reflux disease. . R enal failure. Pneumonia. Depression. Anxiety. SURGICAL HISTORY: Cholecystectomy. Lung resection. Achilles tendon surgery. ENCOUNTER: Initial ACUITY: 1 day PAIN SCORE: 0/10 LOCATION: Bilateral flank MEASUREMENTS: RIGHT KIDNEY: 9.6 x 4.8 x 4.2 cm LEFT KIDNEY: 9.3 x 4.5 x 4.6 cm FINDINGS: Both kidneys appear somewhat small. The right kidney appears echogenic. There is some cystic change in the central aspect of the right kidney which represent a mildly dilated renal pelvis. The collec ting system is otherwise not dilated. The spleen is enlarged measuring 15.6 cm in length. The bladder appears grossly normal. CONCLUSION: 1. The kidneys appear decreased in size. There is increased echogenicity seen at the right kidney. These findings can suggest medical renal disease. 2. Splenomegaly. Jose Clark MD on July 24, 2016 at 21:47 Board Certified Radiologist. This report was verified electronically.
[2016-07-25] VITALS (10 sets, daily range): BP systolic 92–125; BP diastolic 53–67; PULSE 62–73; RESP 16–20; TEMP 96.1–98.1; O2SAT 96–100
[2016-07-25] MEDS: RESP: ALBUTEROL 2.5 MG/IPRATROPIUM 0.5 MG NEB (SCH) INH ×4 (04:50→21:33)
[2016-07-25] MEDS: PIPERACIL-TAZO 2.25 GM PREMIX 50 ML IV SCH ×2 (05:40→12:14)
[2016-07-25] MEDS: HEPARIN SODIUM - SQ 10,000 UNITS/ML VIAL SQ SCH ×3 (05:41→20:48)
[2016-07-25 08:41] LABS: MEAN CELL VOLUME 82.9 FL (80.0-100.0); MEAN CORPUSCULAR HEMOGLOBIN 28.2 PG (27.0-34.0); PLATELET COUNT 244 TH/MM3 (150-450); RED CELL DISTRIBUTION WIDTH 13.4 % (11.6-17.2); WHITE BLOOD COUNT 1.2 TH/MM3 (4.0-11.0)
[2016-07-25 08:51] LABS: REVIEW FLAG FINAL
[2016-07-25] MEDS: TIOTROPIUM BROMIDE 18 MCG INH INH SCH (08:53)
[2016-07-25] MEDS: SODIUM CHLORIDE 0.9% FLUSH 5 ML FLUSH IV FLUSH SCH ×2 (08:53→20:40)
[2016-07-25] MEDS: BUDESONIDE-FORMOTEROL 160/4.5 MCG INHALER INH SCH ×2 (08:53→20:47)
[2016-07-25] MEDS: DOCUSATE SODIUM 100 MG CAP PO SCH ×2 (08:54→20:46)
[2016-07-25] MEDS: SODIUM BICARBONATE 650 MG TAB PO SCH ×2 (08:54→20:47)
[2016-07-25] MEDS: POLYETHYLENE GLYCOL 17 GM PKG PO SCH ×2 (08:54→20:47)
[2016-07-25] MEDS: ASPIRIN EC 81 MG TABEC PO SCH (08:54)
[2016-07-25] MEDS: SENNOSIDES 8.6 MG TAB PO SCH (08:54)
[2016-07-25] MEDS: guaiFENesin E.R. 600 MG TAB PO SCH ×3 (08:54→17:10)
[2016-07-25] MEDS: GABAPENTIN 100 MG CAP PO SCH ×3 (08:54→17:10)
[2016-07-25] MEDS: TOLTERODINE TARTRATE 2 MG CAP LA PO SCH (08:54)
[2016-07-25 08:55] LABS: BICARBONATE 21.4 MEQ/L (21.0-32.0); MAGNESIUM 1.8 MG/DL (1.5-2.5); POTASSIUM 4.2 MEQ/L (3.5-5.1)
[2016-07-25] MEDS: REMOVE OLD PATCH T-DERMAL SCH (08:55)
[2016-07-25] MEDS: NICOTINE 21 MG/24 HR PATCH T-DERMAL SCH (08:55)
--- NOTE | 2016-07-25 09:13 | RADRPT ---
EXAM DATE/TIME: 07/25/2016 06:27 [facility] COMPARISON: CHEST SINGLE AP, July 22, 2016, 20:52. INDICATIONS : Cough. MEDICAL HISTORY : unobtainable SURGICAL HISTORY : unobtainable ENCOUNTER: Initial ACUITY: 1 day PAIN SCORE: Non-responsive. LOCATION: Bilateral upper chest FINDINGS: A single view of the chest demonstrates basilar airspace disease. No significant effusion. No pneumot horax. Heart size upper limits normal. CONCLUSION: 1. Bibasilar airspace disease increased from July 22. Doug Sheriff MD on July 25, 2016 at 9:06 Board Certified Radiologist. This report was verified electronically.
--- NOTE | 2016-07-25 13:45 | HHI.NPPN ---
Subjective History of Present Illness 65-year-old white female with history of lung cancer, chronic kidney disease who moved to this area having some cough Review of Systems General Constitutional: Fatigue Respiratory Lungs: Cough Objective Data Data 07/24/16 07/25/16 19:00 07:00 Intake Total 480 ml Balance 480 ml Intake Oral 480 ml # Voids 4 4 # Bowel Movements 3 6 Vital Signs Date Time Temp Pulse Resp B/P Pulse Ox O2 Delivery O2 Flow Rate FiO2 07/25/16 13:33 98.1 64 20 108/60 100 07/25/16 09:27 98 Nasal Cannula 2.00 07/25/16 08:55 96.9 62 20 92/67 99 07/25/16 07:00 65 07/25/16 06:09 97.7 68 16 125/56 96 07/25/16 04:51 98 Nasal Cannula 2.00 07/24/16 23:51 98.3 75 18 132/60 97 07/24/16 23:30 74 07/24/16 20:02 99 Nasal Cannula 2.00 07/24/16 20:00 98.3 75 18 123/58 96 07/24/16 16:00 97.3 64 19 103/53 96 -: 07/25/16 0741 07/25/16 0741 Physical Exam General Appearance: Well Developed Neck Neck Exam: Neck Supple Pulmonary Resp Exam: Decreased Bases Cardiology CV Exam: Regular, Normal Sinus Rhythm Gastrointestinal/Abdomen GI Exam: Soft, Non-Tender, Bowel Sounds Present Integumentary Skin Exam: Clear Neurologic Neuro Exam: Alert, Awake Assessment/Plan Problem List: (1) Chronic kidney disease Plan: Patient has advanced kidney disease and she has AV fistula Creatinine 3.7. Hemoglobin dropped I will give Procrit 40 K Check PTH and vitamin D 25 She is on sodium bicarbonate tablets There is no urgent need to start dialysis at this hospitalization creatinine remained at 3.7 (2) COPD (chronic obstructive pulmonary disease) Plan: Patient has been admitted and treated (3) Neutropenia Plan: Likely due to bone marrow dysfunction oncology following (4) Sepsis Plan: Patient has UTI and possible bronchitis pneumonia on Zosyn Problem Qualifiers (1) Chronic kidney disease: Qualified Code: N18.5 - Chronic kidney disease, stage 5 (2) Neutropenia: Qualified Code: D70.9 - Neutropenia, unspecified type (3) Sepsis: Qualified Code: A41.9 - Sepsis, due to unspecified organism Oscar Jurado MD Jul 25, 2016 13:45
[2016-07-25] MEDS ORDERED: EPOETIN ALFA 40,000 UNITS/ML VIAL SQ ONE (15:00)
[2016-07-25] MEDS ORDERED: DEXTROSE 5% IN WATE 1000ML INJ 1,000 ML IV SCH (15:00)
--- NOTE | 2016-07-25 15:02 | HHI.PR ---
Subjective Remarks The patient's daughter called on the phone and was placed on speaker phone. The patient feels better and would like to go home soon. The patient's daughter 's questions were answered. The patient had no acute complaints at this time. Objective Vitals Vital Signs Date Time Temp Pulse Resp B/P Pulse Ox O2 Delivery O2 Flow Rate FiO2 07/25/16 13:33 98.1 64 20 108/60 100 07/25/16 09:27 98 Nasal Cannula 2.00 07/25/16 08:55 96.9 62 20 92/67 99 07/25/16 07:00 65 07/25/16 06:09 97.7 68 16 125/56 96 07/25/16 04:51 98 Nasal Cannula 2.00 07/24/16 23:51 98.3 75 18 132/60 97 07/24/16 23:30 74 07/24/16 20:02 99 Nasal Cannula 2.00 07/24/16 20:00 98.3 75 18 123/58 96 07/24/16 16:00 97.3 64 19 103/53 96 I/O 07/24/16 07/24/16 07/24/16 07/25/16 07/25/16 07/25/16 07:00 15:00 23:00 07:00 15:00 23:00 Intake Total 480 ml 240 ml Balance 480 ml 240 ml Intake Oral 480 ml 240 ml # Voids 1 4 4 3 # Bowel Movements 0 3 6 1 Result Diagram: 07/25/16 0741 07/25/16 0741 Imaging Last Impressions Chest X-Ray 07/25/16 0600 Signed Impressions: Service Date/Time: Monday, July 25, 2016 06:27 - CONCLUSION: 1. Bibasilar airspace disease increased from July 22. Doug Sheriff MD Renal Ultrasound 07/24/16 0000 Signed Impressions: Service Date/Time: Sunday, July 24, 2016 21:08 - CONCLUSION: 1. The kidneys appear decreased in size. There is increased echogenicity seen at the right kidney. These findings can suggest medical renal disease. 2. Splenomegaly. Jose Clark MD Head CT 07/22/162057 Signed Impressions: Service Date/Time: Friday, July 22, 2016 21:12 - CONCLUSION: Moderate atrophy. No acute findings in the brain. 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 Air-fluid levels in both maxillary sinuses suggest acute maxillary sinusitis. Claudy Denis MD Objective Remarks GENERAL: Well-nourished, well-developed patient. SKIN: Warm and dry. HEAD: Normocephalic. EYES: No scleral icterus. No injection or drainage. NECK: Supple, trachea midline. No JVD or lymphadenopathy. CARDIOVASCULAR: Regular rate and rhythm without murmurs, gallops, or rubs. RESPIRATORY: Crackles noted at the bases. GASTROINTESTINAL: Abdomen soft, non-tender, nondistended. MUSCULOSKELETAL: No cyanosis, or edema. BACK: Nontender without obvious deformity. No CVA tenderness. NEURO: No gross deficits. PSYCH: Mood and affect appropriate. Medications and IVs Current Medications Medications (Trade) Dose Ordered Sig/Carlos Route Start Time Stop Time Status Last Admin (Tylenol) 650 mg Q6H PRN PO 07/22/16 23:00 07/23/16 08:55 (Zofran Inj) 4 mg Q6H PRN IV 07/22/16 23:00 (Reglan Inj) 5 mg Q6H PRN IV 07/22/16 23:00 (Colace) 100 mg BID PO 07/23/16 09:00 07/25/16 08:54 (Ambien) 5 mg HS PRN PO 07/22/16 23:00 Miscellaneous Information 1 Q361D XX 07/22/16 23:00 (NS Flush) 2 ml UNSCH PRN IV FLUSH 07/22/16 23:00 (NS Flush) 2 ml BID IV FLUSH 07/23/16 09:00 07/24/16 22:41 (Xanax) 0.5 mg Q12H PRN PO 07/22/16 23:15 07/24/16 22:39 (Ecotrin Ec) 81 mg DAILY PO 07/23/16 09:00 07/25/16 08:54 (Symbicort 160-4.5 Inh) 2 puff Q12HR INH 07/23/16 09:00 07/25/16 08:53 (Neurontin) 100 mg TID PO 07/23/16 09:00 07/25/16 12:01 (Mucinex Er) 600 mg TID PO 07/23/16 09:00 07/25/16 12:01 (Habitrol 21 Mg Patch.24 Hr) 1 patch DAILY T-DERMAL 07/23/16 09:00 07/25/16 08:55 (Spiriva Inh) 18 mcg DAILY INH 07/23/16 09:00 07/25/16 08:53 (Desyrel) 150 mg HS PO 07/22/16 23:15 07/24/16 22:39 (Detrol La) 2 mg DAILY PO 07/23/16 09:00 07/25/16 08:54 Miscellaneous Information 1 1 DAILY T-DERMAL 07/23/16 09:00 07/25/16 08:55 (Zosyn 2.25 Gm Premix) 50 ml @ 100 mls/hr Q8HR IV 07/23/16 06:00 07/25/16 12:14 (Pill Splitter) 1 ea UNSCH PRN OTHER 07/23/16 00:45 (Heparin Inj) 5,000 units Q8HR SQ 07/23/16 14:00 07/25/16 12:14 (Roxicodone) 5 mg Q4H PRN PO 07/23/16 10:00 (Roxicodone) 10 mg Q4H PRN PO 07/23/16 10:00 07/25/16 12:27 (Miralax) 17 gm BID PO 07/23/16 10:30 07/25/16 08:54 (Senokot) 17.2 mg DAILY PO 07/23/16 10:30 07/25/16 08:54 (Sodium Bicarbonate) 650 mg Q12HR PO 07/24/16 21:00 07/25/16 08:54 (Epogen Inj) 40,000 units ONCE ONCE SQ 07/25/16 15:00 07/25/16 15:01 A/P Assessment and Plan Pneumonia CXR with left sided infiltrate. CXR 07/25 with worsening airspace disease. ID consult appreciated. Sputum culture growing stenotrophomonas, urine culture growing Pseudomonas. - Change Zosyn to Ceftaz per sensitivities. Renally dosed. Follow up with ID. - oxygen and nebs as needed. 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 She received Neupogen earlier this month. The pt was found to have an ANC of 0.6. Hematology consult appreciated. - follow CBC with diff. - further evaluation per hematology. Lung cancer The pt is s/p treatment with surgery and radiation and is currently in remission. Has neutropenia as above. - follow up with oncology. COPD Not in exacerbation at this time. Still smoking 6-8 cigarettes daily. - Symbicort, guaifenesin, Spiriva, DuoNeb. - Nicotine patch. - smoking cessation instruction. Renal Failure Creatinine was found to be 4.68. She has stage 5 renal disease for which she was followed by a fundraiser. She had a fistula placed about three weeks ago. Appreciate nephrology input. S/p IVFs. Creatinine stable 07/25. - follow urine output. - Nephrology follow-up. - avoid nephrotoxic agents. Hypoglycemia Likely s/t decreased PO intake. - D5W. - encourage PO intake. Add Nepro. PPx: Heparin. Discharge Planning Anticipate d/c in 1-2 days. Nirav Ortiz DO Jul 25, 2016 15:02
[2016-07-25] MEDS: SODIUM CHLORIDE 0.9% IV SCH (17:11)
[2016-07-25] MEDS: CEFTAZIDIME IV SCH (17:11)
--- NOTE | 2016-07-25 17:57 | HHI.IDPN ---
Note Infectious Disease Note Patient feels okay Alert. No SOB, THOMAS, chest discomfort. On nasal O2. Mild dry cough. Wants to go home. Afebrile. WBC still very low. Sputum culture has Stenotrophomonas. Urine culture has Pseudomonas. Presented with altered mental status, weakness, malaise, headache, back pain, chest pain. cough, abdominal pain and intermittent nausea and vomiting. Found to be neutropenic. PAST MEDICAL HISTORY 1. Non-small cell lung cancer. 2. Chronic kidney disease. 3. Pancytopenia. 4. Hypertension. 5. Left forearm AV fistula. 6. Cholecystectomy. 7. Tubal ligation. 8. Aneurysm. 9. Diabetes mellitus. ALLERGIES 1. CIPRO. ( patient notes that she had itching but no rash with cipro and that she tolerated Levaquin before) 2. CODEINE. 3. MORPHINE. ANTIBIOTICS Ceftazidime. OBJECTIVE: Vital Signs Date Time Temp Pulse Resp B/P Pulse Ox O2 Delivery O2 Flow Rate FiO2 07/25/16 17:06 97.9 68 20 106/66 99 07/25/16 16:34 99 Nasal Cannula 2.00 07/25/16 15:00 64 07/25/16 13:33 98.1 64 20 108/60 100 07/25/16 09:27 98 Nasal Cannula 2.00 07/25/16 08:55 96.9 62 20 92/67 99 07/25/16 07:00 65 07/25/16 06:09 97.7 68 16 125/56 96 07/25/16 04:51 98 Nasal Cannula 2.00 07/24/16 23:51 98.3 75 18 132/60 97 07/24/16 23:30 74 07/24/16 20:02 99 Nasal Cannula 2.00 07/24/16 20:00 98.3 75 18 123/58 96 07/24/16 07/24/16 07/25/16 15:00 23:00 07:00 Intake Total 480 ml Balance 480 ml Intake Oral 480 ml # Voids 4 4 # Bowel Movements 3 6 Laboratory Tests Test 07/24/16 07/25/16 06:50 07:41 White Blood Count 3.1 TH/MM3 1.2 TH/MM3 Red Blood Count 3.31 MIL/MM3 2.90 MIL/MM3 Hemoglobin 9.1 GM/DL 8.2 GM/DL Hematocrit 27.6 % 24.0 % Mean Corpuscular Volume 83.4 FL 82.9 FL Mean Corpuscular Hemoglobin 27.6 PG 28.2 PG Mean Corpuscular Hemoglobin 33.1 % 34.0 % Concent Red Cell Distribution Width 13.9 % 13.4 % Platelet Count 234 TH/MM3 244 TH/MM3 Mean Platelet Volume 8.2 FL 7.2 FL Neutrophils (%) (Auto) % Lymphocytes (%) (Auto) % Monocytes (%) (Auto) % Eosinophils (%) (Auto) % Basophils (%) (Auto) % Neutrophils # (Auto) TH/MM3 Lymphocytes # (Auto) TH/MM3 Monocytes # (Auto) TH/MM3 Eosinophils # (Auto) TH/MM3 Basophils # (Auto) TH/MM3 CBC Comment AUTO DIFF Differential Total Cells 100 Counted Neutrophils % (Manual) 42 % Band Neutrophils % 3 % Lymphocytes % 23 % Monocytes % 27 % Eosinophils % 1 % Basophils % 4 % Neutrophils # (Manual) 1.4 TH/MM3 Differential Comment FINAL DIFF MANUAL Platelet Estimate NORMAL Platelet Morphology Comment NORMAL Red Cell Morphology Comment NORMAL Hematology Comments Laboratory Tests Test 07/24/16 07/25/16 06:50 07:41 Sodium Level 144 MEQ/L 145 MEQ/L Potassium Level 4.4 MEQ/L 4.2 MEQ/L Chloride Level 113 MEQ/L 114 MEQ/L Carbon Dioxide Level 20.4 MEQ/L 21.4 MEQ/L Anion Gap 11 MEQ/L 10 MEQ/L Blood Urea Nitrogen 39 MG/DL 39 MG/DL Creatinine 3.84 MG/DL 3.74 MG/DL Estimat Glomerular Filtration 12 ML/MIN 12 ML/MIN Rate Random Glucose 70 MG/DL 71 MG/DL Calcium Level 8.0 MG/DL 8.1 MG/DL Magnesium Level 1.9 MG/DL 1.8 MG/DL Phosphorus Level 3.9 MG/DL Vitamin B12 Level 390 PG/ML Folate 13.2 NG/ML Microbiology Date/Time Procedure Status Source Growth 07/22/16 22:00 Aerobic Blood Culture - Preliminary Resulted Blood Peripheral NO GROWTH IN 3 DAYS 07/22/16 22:00 Anaerobic Blood Culture - Preliminary Resulted Blood Peripheral NO GROWTH IN 3 DAYS 07/22/16 22:10 Aerobic Blood Culture - Preliminary Resulted Blood Peripheral NO GROWTH IN 3 DAYS 07/22/16 22:10 Anaerobic Blood Culture - Preliminary Resulted Blood Peripheral NO GROWTH IN 3 DAYS 07/22/16 22:20 Urine Culture - Final Complete Urine Clean Catch Pseudomonas Aeruginosa 07/23/16 00:20 Gram Stain - Final Complete Sputum Expectorated Sputum 07/23/16 00:20 Sputum Culture - Final Complete Stenotrophomonas Maltophilia PHYSICAL EXAMINATION GENERAL: No acute distress. HEENT: No icterus. Oropharynx no visible lesions. NECK: Supple without adenopathy. LUNGS: Slight rhonchi at the r. base. HEART: Regular S1 and S2. ABDOMEN: Bowel sounds present. Soft. No tenderness appreciated. EXTREMITIES: The left upper extremity has an AV fistula which appears intact. No edema. No lesions. NEUROLOGIC: Nonfocal. SKIN: No rash. IMPRESSION 1. Sepsis. 2. Persistent neutropenia. ? etiology. 3. Abnormal chest x-ray indicating pneumonia. Stenotrophomonas. CXR is worse. 4. Urinary tract infection. Pseudomonas. 5. Acute kidney disease on chronic kidney disease. RECOMMENDATIONS 1. Continue Ceftazidime. 2. Give trial of PO Levaquin and monitor. 3. Monitor clinical status. I feel that patient is not ready for discharge yet. D/W Patient's daughter who is her POA. Kameron Santos MD Jul 25, 2016 17:57
[2016-07-25] MEDS: LEVOFLOXACIN 250 MG TAB PO SCH (18:07)
[2016-07-25] MEDS: ALPRAZolam 0.5 MG TAB PO PRN (20:46)
[2016-07-25] MEDS: traZODone HCL 50 MG TAB PO SCH (20:47)
[2016-07-26] VITALS (10 sets, daily range): BP systolic 100–138; BP diastolic 51–60; PULSE 64–81; RESP 17–20; TEMP 97.6–99.5; O2SAT 91–100
[2016-07-26] MEDS: RESP: ALBUTEROL 2.5 MG/IPRATROPIUM 0.5 MG NEB (SCH) INH ×4 (03:21→22:34)
[2016-07-26] MEDS: HEPARIN SODIUM - SQ 10,000 UNITS/ML VIAL SQ SCH ×4 (05:04→22:00)
[2016-07-26 07:20] LABS: AUTOMATED NEUTROPHIL # 0.3 TH/MM3 (1.8-7.7); BASOPHIL % 2.5 % (0.0-2.0); EOSINOPHIL % 0.4 % (0.0-4.0); HEMATOCRIT 24.7 % (35.0-46.0); LYMPH % 31.5 % (9.0-44.0); LYMPHOCYTE # 0.4 TH/MM3 (1.0-4.8); MEAN CELL VOLUME 83.2 FL (80.0-100.0); MEAN CORPUSCULAR HGB CONC 33.7 % (32.0-36.0); MONO % 44.7 % (0.0-8.0); NEUT % 20.9 % (16.0-70.0); PLATELET COUNT 213 TH/MM3 (150-450); RED BLOOD COUNT 2.97 MIL/MM3 (4.00-5.30); RED CELL DISTRIBUTION WIDTH 13.1 % (11.6-17.2); WHITE BLOOD COUNT 1.4 TH/MM3 (4.0-11.0)
[2016-07-26 07:25] LABS: HEMO FLAGS AUTO DIFF
[2016-07-26 07:48] LABS: BICARBONATE 23.9 MEQ/L (21.0-32.0); POTASSIUM 3.8 MEQ/L (3.5-5.1)
[2016-07-26] MEDS: NICOTINE 21 MG/24 HR PATCH T-DERMAL SCH (08:18)
[2016-07-26] MEDS: GABAPENTIN 100 MG CAP PO SCH ×3 (08:19→17:32)
[2016-07-26] MEDS: SODIUM CHLORIDE 0.9% IV SCH (08:19)
[2016-07-26] MEDS: SODIUM BICARBONATE 650 MG TAB PO SCH ×2 (08:19→21:53)
[2016-07-26] MEDS: ASPIRIN EC 81 MG TABEC PO SCH (08:19)
[2016-07-26] MEDS: CEFTAZIDIME IV SCH (08:19)
[2016-07-26] MEDS: BUDESONIDE-FORMOTEROL 160/4.5 MCG INHALER INH SCH ×2 (08:19→21:54)
[2016-07-26] MEDS: TOLTERODINE TARTRATE 2 MG CAP LA PO SCH (08:19)
[2016-07-26] MEDS: guaiFENesin E.R. 600 MG TAB PO SCH ×3 (08:19→17:32)
[2016-07-26] MEDS: TIOTROPIUM BROMIDE 18 MCG INH INH SCH (08:20)
[2016-07-26] MEDS: SODIUM CHLORIDE 0.9% FLUSH 5 ML FLUSH IV FLUSH SCH ×2 (08:20→21:53)
[2016-07-26] MEDS: ACETAMINOPHEN 325 MG TAB PO PRN (08:27)
[2016-07-26 08:38] LABS: BANDS 6 % (0-6); BASOPHILS 3 % (0-2); EOSINOPHILS 1 % (0-4); POLYS (SEG NEUTROPHILS) 20 % (16-70); WBC DIFF SAMPLE 100
[2016-07-26 08:39] LABS: PLATELET ESTIMATE SMEAR NORMAL (NORMAL); PLATELET MORPHOLOGY NORMAL (NORMAL); SCAN/DIFF FINAL DIFF MANUAL
[2016-07-26 08:44] LABS: NEUTROPHIL # MANUAL DIFF 0.4 TH/MM3 (1.8-7.7)
[2016-07-26] MEDS: SENNOSIDES 8.6 MG TAB PO SCH (09:00)
[2016-07-26] MEDS: POLYETHYLENE GLYCOL 17 GM PKG PO SCH ×2 (09:00→21:00)
[2016-07-26] MEDS: DOCUSATE SODIUM 100 MG CAP PO SCH ×2 (09:00→21:00)
[2016-07-26] MEDS: REMOVE OLD PATCH T-DERMAL SCH (09:00)
--- NOTE | 2016-07-26 14:40 | HHI.NPPN ---
Subjective History of Present Illness 65-year-old white female with history of lung cancer, chronic kidney disease who moved to this area having some cough Review of Systems General Constitutional: Fatigue Respiratory Lungs: Cough Objective Data Data 07/25/16 07/26/16 19:00 07:00 Intake Total 240 ml 360 ml Balance 240 ml 360 ml Intake Oral 240 ml 360 ml # Voids 3 2 # Bowel Movements 1 2 Vital Signs Date Time Temp Pulse Resp B/P Pulse Ox O2 Delivery O2 Flow Rate FiO2 07/26/16 11:00 98.0 79 19 117/56 96 07/26/16 09:07 98 Nasal Cannula 2.00 07/26/16 08:00 64 07/26/16 07:10 97.6 67 20 100/51 91 07/26/16 04:00 98.9 81 20 118/58 100 07/26/16 03:25 99 Nasal Cannula 2.00 07/26/16 00:00 99.5 81 20 121/59 100 07/25/16 20:00 96.1 73 20 112/53 100 07/25/16 17:06 97.9 68 20 106/66 99 07/25/16 16:34 99 Nasal Cannula 2.00 07/25/16 15:00 64 -: 07/26/16 0647 07/26/16 0647 Physical Exam General Appearance: Well Developed Neck Neck Exam: Neck Supple Pulmonary Resp Exam: Decreased Bases Cardiology CV Exam: Regular, Normal Sinus Rhythm Gastrointestinal/Abdomen GI Exam: Soft, Non-Tender, Bowel Sounds Present Integumentary Skin Exam: Clear Neurologic Neuro Exam: Alert, Awake Assessment/Plan Problem List: (1) Chronic kidney disease Plan: Patient has advanced kidney disease and she has AV fistula Creatinine 3.84. Hemoglobin low received Procrit PTH high and vitamin D 25 low start Calcitrio She is on sodium bicarbonate tablets There is no urgent need to start dialysis at this hospitalization creatinine remained at 3.8 follow up at office (2) COPD (chronic obstructive pulmonary disease) Plan: Patient has been admitted and treated (3) Neutropenia Plan: Likely due to bone marrow dysfunction oncology following (4) Sepsis Plan: Patient has UTI and possible bronchitis pneumonia on Zosyn Problem Qualifiers (1) Chronic kidney disease: Qualified Code: N18.5 - Chronic kidney disease, stage 5 (2) Neutropenia: Qualified Code: D70.9 - Neutropenia, unspecified type (3) Sepsis: Qualified Code: A41.9 - Sepsis, due to unspecified organism Oscar Jurado MD Jul 26, 2016 14:40
[2016-07-26] MEDS ORDERED: CALCITRIOL 0.25 MCG CAP PO ONE (14:45)
--- NOTE | 2016-07-26 16:13 | HHI.PR ---
Subjective Remarks The patient really wanted to go home. She said that nothing was really bothering her. She says she doesn't like being stuck in bed. No other acute complaints. Objective Vitals Vital Signs Date Time Temp Pulse Resp B/P Pulse Ox O2 Delivery O2 Flow Rate FiO2 07/26/16 16:06 99.3 78 17 125/58 96 07/26/16 11:00 98.0 79 19 117/56 96 07/26/16 09:07 98 Nasal Cannula 2.00 07/26/16 08:00 64 07/26/16 07:10 97.6 67 20 100/51 91 07/26/16 04:00 98.9 81 20 118/58 100 07/26/16 03:25 99 Nasal Cannula 2.00 07/26/16 00:00 99.5 81 20 121/59 100 07/25/16 20:00 96.1 73 20 112/53 100 07/25/16 17:06 97.9 68 20 106/66 99 07/25/16 16:34 99 Nasal Cannula 2.00 I/O 07/25/16 07/25/16 07/25/16 07/26/16 07/26/16 07/26/16 07:00 15:00 23:00 07:00 15:00 23:00 Intake Total 240 ml 240 ml 120 ml 480 ml Balance 240 ml 240 ml 120 ml 480 ml Intake Oral 240 ml 240 ml 120 ml 480 ml # Voids 4 3 2 0 3 # Bowel Movements 6 1 2 0 0 Result Diagram: 07/26/16 0647 07/26/16 0647 Imaging Last Impressions Chest X-Ray 07/25/16 0600 Signed Impressions: Service Date/Time: Monday, July 25, 2016 06:27 - CONCLUSION: 1. Bibasilar airspace disease increased from July 22. Doug Sheriff MD Renal Ultrasound 07/24/16 0000 Signed Impressions: Service Date/Time: Sunday, July 24, 2016 21:08 - CONCLUSION: 1. The kidneys appear decreased in size. There is increased echogenicity seen at the right kidney. These findings can suggest medical renal disease. 2. Splenomegaly. Jose Clark MD Head CT 07/22/162057 Signed Impressions: Service Date/Time: Friday, July 22, 2016 21:12 - CONCLUSION: Moderate atrophy. No acute findings in the brain. 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 Air-fluid levels in both maxillary sinuses suggest acute maxillary sinusitis. Claudy Denis MD Objective Remarks GENERAL: Well-nourished, well-developed patient. SKIN: Warm and dry. HEAD: Normocephalic. EYES: No scleral icterus. No injection or drainage. NECK: Supple, trachea midline. No JVD or lymphadenopathy. CARDIOVASCULAR: Regular rate and rhythm without murmurs, gallops, or rubs. RESPIRATORY: Crackles noted at the bases. GASTROINTESTINAL: Abdomen soft, non-tender, nondistended. MUSCULOSKELETAL: No cyanosis, or edema. BACK: Nontender without obvious deformity. No CVA tenderness. NEURO: No gross deficits. PSYCH: Mood and affect appropriate. Medications and IVs Current Medications Medications (Trade) Dose Ordered Sig/Carlos Route Start Time Stop Time Status Last Admin (Tylenol) 650 mg Q6H PRN PO 07/22/16 23:00 07/26/16 08:27 (Zofran Inj) 4 mg Q6H PRN IV 07/22/16 23:00 (Reglan Inj) 5 mg Q6H PRN IV 07/22/16 23:00 (Colace) 100 mg BID PO 07/23/16 09:00 07/25/16 20:46 (Ambien) 5 mg HS PRN PO 07/22/16 23:00 Miscellaneous Information 1 Q361D XX 07/22/16 23:00 (NS Flush) 2 ml UNSCH PRN IV FLUSH 07/22/16 23:00 (NS Flush) 2 ml BID IV FLUSH 07/23/16 09:00 07/26/16 08:20 (Xanax) 0.5 mg Q12H PRN PO 07/22/16 23:15 07/25/16 20:46 (Ecotrin Ec) 81 mg DAILY PO 07/23/16 09:00 07/26/16 08:19 (Symbicort 160-4.5 Inh) 2 puff Q12HR INH 07/23/16 09:00 07/26/16 08:19 (Neurontin) 100 mg TID PO 07/23/16 09:00 07/26/16 13:14 (Mucinex Er) 600 mg TID PO 07/23/16 09:00 07/26/16 13:14 (Habitrol 21 Mg Patch.24 Hr) 1 patch DAILY T-DERMAL 07/23/16 09:00 07/26/16 08:18 (Spiriva Inh) 18 mcg DAILY INH 07/23/16 09:00 07/26/16 08:20 (Desyrel) 150 mg HS PO 07/22/16 23:15 07/25/16 20:47 (Detrol La) 2 mg DAILY PO 07/23/16 09:00 07/26/16 08:19 Miscellaneous Information 1 DAILY T-DERMAL 07/23/16 09:00 07/26/16 09:00 (Pill Splitter) 1 ea UNSCH PRN OTHER 07/23/16 00:45 (Heparin Inj) 5,000 units Q8HR SQ 07/23/16 14:00 07/26/16 13:15 (Roxicodone) 5 mg Q4H PRN PO 07/23/16 10:00 (Roxicodone) 10 mg Q4H PRN PO 07/23/16 10:00 07/26/16 11:41 (Miralax) 17 gm BID PO 07/23/16 10:30 07/25/16 08:54 (Senokot) 17.2 mg DAILY PO 07/23/16 10:30 07/25/16 08:54 Sodium Bicarbonate 650 mg 650 mg Q12HR PO 07/24/16 21:00 07/26/16 08:19 (Fortaz Inj/NS Inj) 100 ml @ 200 mls/hr DAILY IV 07/25/16 16:00 07/26/16 08:19 (Levaquin) 250 mg Q48H PO 07/25/16 18:00 07/25/16 18:07 Calcitriol 0.25 mcg 0.25 mcg DAILY PO 07/27/16 09:00 (D5W 1000 ml Inj) 1,000 ml @ 100 mls/hr Q10H IV 07/26/16 15:00 07/27/16 10:59 A/P Assessment and Plan Pneumonia CXR with left sided infiltrate. CXR 07/25 with worsening airspace disease. ID consult appreciated. Sputum culture growing stenotrophomonas, urine culture growing pseudomonas. - Change Zosyn to Ceftaz per sensitivities. Renally dosed. Follow up with ID. PO Levaquin added. - oxygen and nebs as needed. 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 She received Neupogen earlier this month. The pt was found to have an ANC of 0.6. Hematology consult appreciated. - follow CBC with diff. - further evaluation per hematology. - neutropenic precautions. Lung cancer The pt is s/p treatment with surgery and radiation and is currently in remission. Has neutropenia as above. - follow up with oncology. COPD Not in exacerbation at this time. Still smoking 6-8 cigarettes daily. - Symbicort, guaifenesin, Spiriva, DuoNeb. - Nicotine patch. - smoking cessation instruction. Renal Failure Creatinine was found to be 4.68. 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 She had a fistula placed about three weeks ago. Appreciate nephrology input. S/p IVFs. Creatinine stable 2/2. - follow urine output. - Nephrology follow-up. - avoid nephrotoxic agents. Hypoglycemia Likely s/t decreased PO intake. - D5W. - encourage PO intake. Add Nepro. PPx: Heparin. Discharge Planning Anticipate d/c in 1-2 days. Nirav Ortiz DO Jul 26, 2016 16:13
[2016-07-26] MEDS: ALPRAZolam 0.5 MG TAB PO PRN (16:30)
[2016-07-26] MEDS: DEXTROSE 5% IN WATE 1000ML INJ 1,000 ML IV SCH (16:59)
--- NOTE | 2016-07-26 17:10 | HHI.IDPN ---
Note Infectious Disease Note Patient feels tired Alert. No SOB, THOMAS, chest discomfort. On nasal O2. Mild dry cough. Has some sweats. Decreased appetite. Wants to go home. Afebrile. WBC still very low. Absolute neutrophil count < 1000. ( lower today ). Sputum culture has Stenotrophomonas. Urine culture has Pseudomonas. Presented with altered mental status, weakness, malaise, headache, back pain, chest pain. cough, abdominal pain and intermittent nausea and vomiting. Found to be neutropenic. PAST MEDICAL HISTORY 1. Non-small cell lung cancer. 2. Chronic kidney disease. 3. Pancytopenia. 4. Hypertension. 5. Left forearm AV fistula. 6. Cholecystectomy. 7. Tubal ligation. 8. Aneurysm. 9. Diabetes mellitus. ALLERGIES 1. CIPRO. ( patient notes that she had itching but no rash with cipro and that she tolerated Levaquin before) 2. CODEINE. 3. MORPHINE. ANTIBIOTICS Ceftazidime. Levaquin. Current Medications Medications (Trade) Dose Ordered Sig/Carlos Route PRN Reason Start Time Stop Time Status Last Admin Dose Admin Acetaminophen (Tylenol) 650 mg Q6H PRN PO PAIN 1-10 AND/OR FEVER >101F 07/22/16 23:00 07/26/16 08:27 Ondansetron HCl (Zofran Inj) 4 mg Q6H PRN IV NAUSEA OR VOMITING 07/22/16 23:00 Metoclopramide HCl (Reglan Inj) 5 mg Q6H PRN IV NAUSEA OR VOMITING 07/22/16 23:00 Docusate Sodium (Colace) 100 mg BID PO 07/23/16 09:00 07/25/16 20:46 Zolpidem Tartrate (Ambien) 5 mg HS PRN PO INSOMNIA 07/22/16 23:00 Miscellaneous Information 1 Q361D XX 07/22/16 23:00 IV Flush (NS Flush) 2 ml UNSCH PRN IV FLUSH FLUSH AFTER USING IV ACCESS 07/22/16 23:00 IV Flush (NS Flush) 2 ml BID IV FLUSH 07/23/16 09:00 07/26/16 08:20 Alprazolam (Xanax) 0.5 mg Q12H PRN PO ANXIETY 07/22/16 23:15 07/26/16 16:30 Aspirin (Ecotrin Ec) 81 mg DAILY PO 07/23/16 09:00 07/26/16 08:19 Budesonide/ Formoterol Fumarate (Symbicort 160-4.5 Inh) 2 puff Q12HR INH 07/23/16 09:00 07/26/16 08:19 Gabapentin (Neurontin) 100 mg TID PO 07/23/16 09:00 07/26/16 13:14 Guaifenesin (Mucinex Er) 600 mg TID PO 07/23/16 09:00 07/26/16 13:14 Nicotine (Habitrol 21 Mg Patch.24 Hr) 1 patch DAILY T-DERMAL 07/23/16 09:00 07/26/16 08:18 Tiotropium [place] (Spiriva Inh) 18 mcg DAILY INH 07/23/16 09:00 07/26/16 08:20 Tolterodine Tartrate (Detrol La) 2 mg DAILY PO 07/23/16 09:00 07/26/16 08:19 Miscellaneous Information 1 DAILY T-DERMAL 07/23/16 09:00 07/26/16 09:00 Miscellaneous (Pill Splitter) 1 ea UNSCH PRN OTHER SEE LABEL COMMENTS 07/23/16 00:45 Heparin Sodium (Porcine) (Heparin Inj) 5,000 units Q8HR SQ 07/23/16 14:00 07/26/16 13:15 Oxycodone HCl (Roxicodone) 5 mg Q4H PRN PO pain 1-5 07/23/16 10:00 Oxycodone HCl (Roxicodone) 10 mg Q4H PRN PO pain 6-10 07/23/16 10:00 07/26/16 11:41 Polyethylene Glycol (Miralax) 17 gm BID PO 07/23/16 10:30 07/25/16 08:54 Sennosides (Senokot) 17.2 mg DAILY PO 07/23/16 10:30 07/25/16 08:54 Sodium Bicarbonate 650 mg 650 mg Q12HR PO 07/24/16 21:00 07/26/16 08:19 Ceftazidime/ Sodium Chloride (Fortaz Inj/NS Inj) 100 ml @ 200 mls/hr DAILY IV 07/25/16 16:00 07/26/16 08:19 Levofloxacin (Levaquin) 250 mg Q48H PO 07/25/16 18:00 07/25/16 18:07 Calcitriol 0.25 mcg 0.25 mcg DAILY PO 07/27/16 09:00 Dextrose (D5W 1000 ml Inj) 1,000 ml @ 100 mls/hr Q10H IV 07/26/16 15:00 07/27/16 10:59 OBJECTIVE: Vital Signs Date Time Temp Pulse Resp B/P Pulse Ox O2 Delivery O2 Flow Rate FiO2 07/26/16 16:06 99.3 78 17 125/58 96 07/26/16 11:00 98.0 79 19 117/56 96 07/26/16 09:07 98 Nasal Cannula 2.00 07/26/16 08:00 64 07/26/16 07:10 97.6 67 20 100/51 91 07/26/16 04:00 98.9 81 20 118/58 100 07/26/16 03:25 99 Nasal Cannula 2.00 07/26/16 00:00 99.5 81 20 121/59 100 07/25/16 20:00 96.1 73 20 112/53 100 07/25/16 17:06 97.9 68 20 106/66 99 07/25/16 07/25/16 07/26/16 15:00 23:00 07:00 Intake Total 240 ml 240 ml 120 ml Balance 240 ml 240 ml 120 ml Intake Oral 240 ml 240 ml 120 ml # Voids 3 2 0 # Bowel Movements 1 2 0 Laboratory Tests Test 07/25/16 07/26/16 07:41 06:47 White Blood Count 1.2 TH/MM3 1.4 TH/MM3 Red Blood Count 2.90 MIL/MM3 2.97 MIL/MM3 Hemoglobin 8.2 GM/DL 8.3 GM/DL Hematocrit 24.0 % 24.7 % Mean Corpuscular Volume 82.9 FL 83.2 FL Mean Corpuscular Hemoglobin 28.2 PG 28.0 PG Mean Corpuscular Hemoglobin 34.0 % 33.7 % Concent Red Cell Distribution Width 13.4 % 13.1 % Platelet Count 244 TH/MM3 213 TH/MM3 Mean Platelet Volume 7.2 FL 6.9 FL Neutrophils (%) (Auto) 20.9 % Lymphocytes (%) (Auto) 31.5 % Monocytes (%) (Auto) 44.7 % Eosinophils (%) (Auto) 0.4 % Basophils (%) (Auto) 2.5 % Neutrophils # (Auto) 0.3 TH/MM3 Lymphocytes # (Auto) 0.4 TH/MM3 Monocytes # (Auto) 0.6 TH/MM3 Eosinophils # (Auto) 0.0 TH/MM3 Basophils # (Auto) 0.0 TH/MM3 CBC Comment AUTO DIFF Differential Total Cells 100 Counted Neutrophils % (Manual) 20 % Band Neutrophils % 6 % Lymphocytes % 32 % Monocytes % 38 % Eosinophils % 1 % Basophils % 3 % Neutrophils # (Manual) 0.4 TH/MM3 Differential Comment FINAL DIFF MANUAL Platelet Estimate NORMAL Platelet Morphology Comment NORMAL Red Cell Morphology Comment NORMAL Laboratory Tests Test 07/25/16 07/26/16 07:41 06:47 Sodium Level 145 MEQ/L 143 MEQ/L Potassium Level 4.2 MEQ/L 3.8 MEQ/L Chloride Level 114 MEQ/L 110 MEQ/L Carbon Dioxide Level 21.4 MEQ/L 23.9 MEQ/L Anion Gap 10 MEQ/L 9 MEQ/L Blood Urea Nitrogen 39 MG/DL 39 MG/DL Creatinine 3.74 MG/DL 3.84 MG/DL Estimat Glomerular Filtration 12 ML/MIN 12 ML/MIN Rate Random Glucose 71 MG/DL 76 MG/DL Calcium Level 8.1 MG/DL 8.1 MG/DL Phosphorus Level 3.9 MG/DL Magnesium Level 1.8 MG/DL Vitamin B12 Level 390 PG/ML Folate 13.2 NG/ML 25-Hydroxy Vitamin D Total 26.7 ng/ML Parathyroid Hormone (Intact) 287.4 PG/ML Microbiology Date/Time Procedure Status Source Growth 07/22/16 22:00 Aerobic Blood Culture - Preliminary Resulted Blood Peripheral NO GROWTH IN 3 DAYS 07/22/16 22:00 Anaerobic Blood Culture - Preliminary Resulted Blood Peripheral NO GROWTH IN 3 DAYS 07/22/16 22:10 Aerobic Blood Culture - Preliminary Resulted Blood Peripheral NO GROWTH IN 3 DAYS 07/22/16 22:10 Anaerobic Blood Culture - Preliminary Resulted Blood Peripheral NO GROWTH IN 3 DAYS 07/22/16 22:20 Urine Culture - Final Complete Urine Clean Catch Pseudomonas Aeruginosa 07/23/16 00:20 Gram Stain - Final Complete Sputum Expectorated Sputum 07/23/16 00:20 Sputum Culture - Final Complete Stenotrophomonas Maltophilia PHYSICAL EXAMINATION GENERAL: No acute distress. HEENT: No icterus. Oropharynx no visible lesions. No thrush. NECK: Supple without adenopathy or swelling. Trachea midline. LUNGS: Slight rhonchi at the r. base. Slight wheezing at the left base. HEART: Regular S1 and S2. Slight systolic murmur. ABDOMEN: Bowel sounds present. Soft. No tenderness appreciated. EXTREMITIES: The left upper extremity has an AV fistula which appears intact. No edema. No lesions. NEUROLOGIC: Nonfocal. SKIN: No rash. PSYCH: Tearful and anxious. IMPRESSION 1. Sepsis. 2. Persistent neutropenia. ? etiology. 3. Abnormal chest x-ray indicating pneumonia. Stenotrophomonas. CXR is worse. 4. Urinary tract infection. Pseudomonas. 5. Acute kidney disease on chronic kidney disease. RECOMMENDATIONS 1. Continue Ceftazidime. 2. Continue Levaquin. 3. Discussed with DR. Jurado about doing a bone marrow biopsy. 4. Discussed with Patients daughter about bone marrow biopsy. 5. Repeat CXR in [place]. 6. Trazodone d/jonas. Patient has been on it for the past 5 years for sleep. 7. Monitor clinical status. 20 mins spent talking to patient about her condition. 19 mins spent talking to patient's daughter by phone. She is on Ambien which may help with sleep. I feel that patient is not ready for discharge yet. D/W Patient's daughter who is her POA. Kameron Santos MD Jul 26, 2016 17:10
--- NOTE | 2016-07-26 18:31 | PD.ONC.PN ---
Subjective Subjective Remarks Ms. Hylton was seen and examined, lab work, vital signs and medications were reviewed. She appears to be comfortable at this point and denies acute complaints. Her ANC was noted to be 300 today. Objective Data Date Time Temp Pulse Resp B/P Pulse Ox O2 Delivery O2 Flow Rate FiO2 07/26/16 16:06 99.3 78 17 125/58 96 07/26/16 11:00 98.0 79 19 117/56 96 07/26/16 09:07 98 Nasal Cannula 2.00 07/26/16 08:00 64 07/26/16 07:10 97.6 67 20 100/51 91 07/26/16 04:00 98.9 81 20 118/58 100 07/26/16 03:25 99 Nasal Cannula 2.00 07/26/16 00:00 99.5 81 20 121/59 100 07/25/16 20:00 96.1 73 20 112/53 100 07/26/16 07/26/16 07/26/16 07:00 15:00 23:00 Intake Total 120 ml 480 ml Balance 120 ml 480 ml Result Diagram: 07/26/16 0647 07/26/16 0647 Laboratory Results Laboratory Tests Test 07/26/16 06:47 White Blood Count 1.4 TH/MM3 Red Blood Count 2.97 MIL/MM3 Hemoglobin 8.3 GM/DL Hematocrit 24.7 % Mean Corpuscular Volume 83.2 FL Mean Corpuscular Hemoglobin 28.0 PG Mean Corpuscular Hemoglobin 33.7 % Concent Red Cell Distribution Width 13.1 % Platelet Count 213 TH/MM3 Mean Platelet Volume 6.9 FL Neutrophils (%) (Auto) 20.9 % Lymphocytes (%) (Auto) 31.5 % Monocytes (%) (Auto) 44.7 % Eosinophils (%) (Auto) 0.4 % Basophils (%) (Auto) 2.5 % Neutrophils # (Auto) 0.3 TH/MM3 Lymphocytes # (Auto) 0.4 TH/MM3 Monocytes # (Auto) 0.6 TH/MM3 Eosinophils # (Auto) 0.0 TH/MM3 Basophils # (Auto) 0.0 TH/MM3 CBC Comment AUTO DIFF Differential Total Cells 100 Counted Neutrophils % (Manual) 20 % Band Neutrophils % 6 % Lymphocytes % 32 % Monocytes % 38 % Eosinophils % 1 % Basophils % 3 % Neutrophils # (Manual) 0.4 TH/MM3 Differential Comment FINAL DIFF MANUAL Platelet Estimate NORMAL Platelet Morphology Comment NORMAL Red Cell Morphology Comment NORMAL Sodium Level 143 MEQ/L Potassium Level 3.8 MEQ/L Chloride Level 110 MEQ/L Carbon Dioxide Level 23.9 MEQ/L Anion Gap 9 MEQ/L Blood Urea Nitrogen 39 MG/DL Creatinine 3.84 MG/DL Estimat Glomerular Filtration 12 ML/MIN Rate Random Glucose 76 MG/DL Calcium Level 8.1 MG/DL 25-Hydroxy Vitamin D Total 26.7 ng/ML Parathyroid Hormone (Intact) 287.4 PG/ML Administered Medications Medications (Trade) Dose Ordered Sig/Carlos Route PRN Reason Start Time Stop Time Status Last Admin Dose Admin Acetaminophen (Tylenol) 650 mg Q6H PRN PO PAIN 1-10 AND/OR FEVER >101F 07/22/16 23:00 07/26/16 08:27 Docusate Sodium (Colace) 100 mg BID PO 07/23/16 09:00 07/25/16 20:46 IV Flush (NS Flush) 2 ml BID IV FLUSH 07/23/16 09:00 07/26/16 08:20 Alprazolam (Xanax) 0.5 mg Q12H PRN PO ANXIETY 07/22/16 23:15 07/26/16 16:30 Aspirin (Ecotrin Ec) 81 mg DAILY PO 07/23/16 09:00 07/26/16 08:19 Budesonide/ Formoterol Fumarate (Symbicort 160-4.5 Inh) 2 puff Q12HR INH 07/23/16 09:00 07/26/16 08:19 Gabapentin (Neurontin) 100 mg TID PO 07/23/16 09:00 07/26/16 17:32 Guaifenesin (Mucinex Er) 600 mg TID PO 07/23/16 09:00 07/26/16 17:32 Nicotine (Habitrol 21 Mg Patch.24 Hr) 1 patch DAILY T-DERMAL 07/23/16 09:00 07/26/16 08:18 Tiotropium [place] (Spiriva Inh) 18 mcg DAILY INH 07/23/16 09:00 07/26/16 08:20 Tolterodine Tartrate (Detrol La) 2 mg DAILY PO 07/23/16 09:00 07/26/16 08:19 Miscellaneous Information 1 DAILY T-DERMAL 07/23/16 09:00 07/26/16 09:00 Heparin Sodium (Porcine) (Heparin Inj) 5,000 units Q8HR SQ 07/23/16 14:00 07/26/16 13:15 Oxycodone HCl (Roxicodone) 10 mg Q4H PRN PO pain 6-10 07/23/16 10:00 07/26/16 11:41 Polyethylene Glycol (Miralax) 17 gm BID PO 07/23/16 10:30 07/25/16 08:54 Sennosides (Senokot) 17.2 mg DAILY PO 07/23/16 10:30 07/25/16 08:54 Sodium Bicarbonate 650 mg 650 mg Q12HR PO 07/24/16 21:00 07/26/16 08:19 Ceftazidime/ Sodium Chloride (Fortaz Inj/NS Inj) 100 ml @ 200 mls/hr DAILY IV 07/25/16 16:00 07/26/16 08:19 Levofloxacin 250 mg 250 mg Q48H PO 07/25/16 18:00 07/25/16 18:07 Dextrose (D5W 1000 ml Inj) 1,000 ml @ 100 mls/hr Q10H IV 07/26/16 15:00 07/27/16 10:59 07/26/16 16:59 Objective Remarks GENERAL: Elderly female, sitting up in bed having dinner. She appears to be pale and somewhat frail. SKIN: Warm and dry. HEAD: Normocephalic. EYES: No scleral icterus. No injection or drainage. NECK: Supple, trachea midline. No JVD or lymphadenopathy. LYMPHATIC: No adenopathy. CARDIOVASCULAR: Regular rate and rhythm, S1-S2 with a systolic murmur. RESPIRATORY: Breath sounds equal bilaterally. No accessory muscle use. GASTROINTESTINAL: Abdomen soft, non-tender, nondistended. EXTREMITIES: No cyanosis, or edema. MUSCULOSKELETAL: Adequate muscle tone. NEUROLOGICAL: No obvious focal deficit. Awake, alert, and oriented x3. PSYCHIATRIC: Appropriate mood and affect; insight and judgment normal. Assessment/Plan Assessment Ms. Hylton is a 65-year-old female with the above-noted medical comorbid conditions. She was brought into the hospital by her daughter because she was found to be difficult to arouse in the morning of 07/22/2016. Additionally, she was noted to have low blood pressure and just had not been eating well. At the time of admission, she was noted to be hypotensive, dehydrated and in acute on chronic renal failure. She has been initiated on IV fluid hydration, has been evaluated b6y nephrology and seems to be approaching threshold for requiring renal replacement therapy. The hematology service has been consulted because the patient has fluctuating neutrophil counts which, per the family, has been an ongoing issue since March of 2016. In fact, while the patient was still living in [place], she was evaluated by her mathematician and was recommended periodic Neupogen injections for management of neutropenia. The etiology of the neutropenia is yet unknown. I have been asked to see her to further evaluate and address this issue. Additionally from an oncologic standpoint Ms. Hylton has a diagnosis of squamous cell carcinoma which was diagnosed about three years ago while she was still residing in [place]. She underwent surgical resection followed by radiation. Plan Neutropenia: Etiology not known, this seems to be worsening, folic acid and vitamin B12 levels are normal. Bone marrow biopsy ordered. Anemia: Likely secondary to renal insufficiency. Serum iron studies, stool for occult blood ordered. If she is iron replete she will be a candidate for erythropoiesis stimulating agent supplementation. Need for bone marrow biopsy discussed with the patient, she is agreeable to proceed. CT-guided bone marrow biopsy with aspiration of the marrow has been ordered. Angel Jurado MD Jul 26, 2016 18:31
[2016-07-27] VITALS (8 sets, daily range): BP systolic 102–143; BP diastolic 39–61; PULSE 60–80; RESP 16–18; TEMP 98.1–98.7; O2SAT 94–100
[2016-07-27 00:24] LABS: TRANSFERRIN IRON PROFILE 110 MG/DL (200-360)
[2016-07-27] MEDS: DEXTROSE 5% IN WATE 1000ML INJ 1,000 ML IV SCH ×2 (00:29→17:30)
[2016-07-27 00:32] LABS: FERRITIN 477 NG/ML (8-252)
[2016-07-27] MEDS: ALPRAZolam 0.5 MG TAB PO PRN ×2 (02:10→15:08)
[2016-07-27] MEDS: HEPARIN SODIUM - SQ 10,000 UNITS/ML VIAL SQ SCH (05:02)
[2016-07-27 07:24] LABS: AUTOMATED NEUTROPHIL # 0.6 TH/MM3 (1.8-7.7); BASOPHIL % 2.9 % (0.0-2.0); EOSINOPHIL % 0.8 % (0.0-4.0); HEMATOCRIT 27.6 % (35.0-46.0); LYMPHOCYTE # 0.4 TH/MM3 (1.0-4.8); MEAN CELL VOLUME 83.6 FL (80.0-100.0); MEAN CORPUSCULAR HEMOGLOBIN 28.2 PG (27.0-34.0); MEAN CORPUSCULAR HGB CONC 33.7 % (32.0-36.0); MONO % 35.9 % (0.0-8.0); NEUT % 36.4 % (16.0-70.0); PLATELET COUNT 245 TH/MM3 (150-450); RED CELL DISTRIBUTION WIDTH 13.4 % (11.6-17.2); WHITE BLOOD COUNT 1.6 TH/MM3 (4.0-11.0)
[2016-07-27 07:27] LABS: BICARBONATE 25.5 MEQ/L (21.0-32.0); MAGNESIUM 1.8 MG/DL (1.5-2.5); POTASSIUM 3.6 MEQ/L (3.5-5.1)
[2016-07-27 07:32] LABS: HEMO FLAGS AUTO DIFF
[2016-07-27 08:55] LABS: BASOPHILS 1 % (0-2); METAMYELOCYTES 1 % (0-1); NEUTROPHIL # MANUAL DIFF 0.7 TH/MM3 (1.8-7.7); PLATELET MORPHOLOGY NORMAL (NORMAL); POLYS (SEG NEUTROPHILS) 42 % (16-70); SCAN/DIFF FINAL DIFF MANUAL; SLIDE REVIEW N; WBC DIFF SAMPLE 100
[2016-07-27 08:57] LABS: PLATELET ESTIMATE SMEAR NORMAL (NORMAL)
[2016-07-27] MEDS: GABAPENTIN 100 MG CAP PO SCH ×3 (09:00→18:32)
[2016-07-27] MEDS: guaiFENesin E.R. 600 MG TAB PO SCH ×3 (09:00→18:32)
[2016-07-27] MEDS: REMOVE OLD PATCH T-DERMAL SCH (09:00)
[2016-07-27] MEDS: ASPIRIN EC 81 MG TABEC PO SCH (09:00)
[2016-07-27] MEDS: SENNOSIDES 8.6 MG TAB PO SCH (09:00)
[2016-07-27] MEDS: TIOTROPIUM BROMIDE 18 MCG INH INH SCH (09:25)
[2016-07-27] MEDS: BUDESONIDE-FORMOTEROL 160/4.5 MCG INHALER INH SCH ×2 (09:26→22:07)
[2016-07-27] MEDS: NICOTINE 21 MG/24 HR PATCH T-DERMAL SCH (09:28)
[2016-07-27] MEDS: SODIUM CHLORIDE 0.9% IV SCH (09:28)
[2016-07-27] MEDS: CEFTAZIDIME IV SCH (09:28)
[2016-07-27] MEDS ORDERED: HYDROmorphone HCL PF 1 MG/ML VIAL IV PUSH ONE (10:30)
[2016-07-27] MEDS ORDERED: LIDOCAINE 1%/EPINEPHrine 1:100,000 SOLN 20 ML VIAL ONE (11:05)
[2016-07-27] MEDS ORDERED: MIDAZOLAM HCL 5 MG/5 ML VIAL ONE (11:33)
[2016-07-27] MEDS ORDERED: fentaNYL CITRATE 250 MCG/5 ML AMP ONE (11:33)
--- NOTE | 2016-07-27 11:42 | PD.ONC.PN ---
Subjective Subjective Remarks Afebrile overnight. patient eager to know when she can go home. She has some low back pain, which she states is chronic. She is really hoping she can go home after her bone marrow biopsy today. Objective Data Date Time Temp Pulse Resp B/P Pulse Ox O2 Delivery O2 Flow Rate FiO2 07/27/16 08:00 98.1 61 16 102/52 99 07/27/16 00:02 98.4 74 18 143/61 98 07/26/16 22:34 99 Nasal Cannula 2.00 07/26/16 19:59 98.1 75 19 138/60 100 07/26/16 16:06 99.3 78 17 125/58 96 Result Diagram: 07/27/16 0633 07/27/16 0633 Laboratory Results Laboratory Tests Test 07/27/16 06:33 White Blood Count 1.6 TH/MM3 Red Blood Count 3.30 MIL/MM3 Hemoglobin 9.3 GM/DL Hematocrit 27.6 % Mean Corpuscular Volume 83.6 FL Mean Corpuscular Hemoglobin 28.2 PG Mean Corpuscular Hemoglobin 33.7 % Concent Red Cell Distribution Width 13.4 % Platelet Count 245 TH/MM3 Mean Platelet Volume 7.1 FL Neutrophils (%) (Auto) 36.4 % Lymphocytes (%) (Auto) 24.0 % Monocytes (%) (Auto) 35.9 % Eosinophils (%) (Auto) 0.8 % Basophils (%) (Auto) 2.9 % Neutrophils # (Auto) 0.6 TH/MM3 Lymphocytes # (Auto) 0.4 TH/MM3 Monocytes # (Auto) 0.6 TH/MM3 Eosinophils # (Auto) 0.0 TH/MM3 Basophils # (Auto) 0.0 TH/MM3 CBC Comment AUTO DIFF Differential Total Cells 100 Counted Neutrophils % (Manual) 42 % Lymphocytes % 31 % Monocytes % 25 % Basophils % 1 % Neutrophils # (Manual) 0.7 TH/MM3 Metamyelocytes 1 % Differential Comment FINAL DIFF MANUAL Platelet Estimate NORMAL Platelet Morphology Comment NORMAL Sodium Level 140 MEQ/L Potassium Level 3.6 MEQ/L Chloride Level 108 MEQ/L Carbon Dioxide Level 25.5 MEQ/L Anion Gap 7 MEQ/L Blood Urea Nitrogen 36 MG/DL Creatinine 3.70 MG/DL Estimat Glomerular Filtration 12 ML/MIN Rate Random Glucose 63 MG/DL Calcium Level 8.6 MG/DL Magnesium Level 1.8 MG/DL Administered Medications Medications (Trade) Dose Ordered Sig/Carlos Route PRN Reason Start Time Stop Time Status Last Admin Dose Admin Acetaminophen (Tylenol) 650 mg Q6H PRN PO PAIN 1-10 AND/OR FEVER >101F 07/22/16 23:00 07/26/16 08:27 Docusate Sodium (Colace) 100 mg BID PO 07/23/16 09:00 07/25/16 20:46 IV Flush (NS Flush) 2 ml BID IV FLUSH 07/23/16 09:00 07/26/16 21:53 Alprazolam (Xanax) 0.5 mg Q12H PRN PO ANXIETY 07/22/16 23:15 07/27/16 02:10 Aspirin (Ecotrin Ec) 81 mg DAILY PO 07/23/16 09:00 07/26/16 08:19 Budesonide/ Formoterol Fumarate (Symbicort 160-4.5 Inh) 2 puff Q12HR INH 07/23/16 09:00 07/27/16 09:26 Gabapentin (Neurontin) 100 mg TID PO 07/23/16 09:00 07/26/16 17:32 Guaifenesin (Mucinex Er) 600 mg TID PO 07/23/16 09:00 07/26/16 17:32 Nicotine (Habitrol 21 Mg Patch.24 Hr) 1 patch DAILY T-DERMAL 07/23/16 09:00 07/27/16 09:28 Tiotropium [place] (Spiriva Inh) 18 mcg DAILY INH 07/23/16 09:00 07/27/16 09:25 Tolterodine Tartrate (Detrol La) 2 mg DAILY PO 07/23/16 09:00 07/26/16 08:19 Miscellaneous Information 1 DAILY T-DERMAL 07/23/16 09:00 07/26/16 09:00 Oxycodone HCl (Roxicodone) 10 mg Q4H PRN PO pain 6-10 07/23/16 10:00 07/26/16 21:53 Polyethylene Glycol (Miralax) 17 gm BID PO 07/23/16 10:30 07/25/16 08:54 Sennosides (Senokot) 17.2 mg DAILY PO 07/23/16 10:30 07/25/16 08:54 Sodium Bicarbonate 650 mg 650 mg Q12HR PO 07/24/16 21:00 07/26/16 21:53 Ceftazidime/ Sodium Chloride (Fortaz Inj/NS Inj) 100 ml @ 200 mls/hr DAILY IV 07/25/16 16:00 07/27/16 09:28 Levofloxacin (Levaquin) 250 mg Q48H PO 07/25/16 18:00 07/25/16 18:07 Objective Remarks GENERAL: Pleasant elderly female, lying in bed in nad. SKIN: Warm and dry. HEAD: Normocephalic. EYES: No injection or drainage. NECK: Supple, trachea midline. CARDIOVASCULAR: Regular rate and rhythm RESPIRATORY: diminished at bases. anterior pat clear. On 2L O2 via [place] GASTROINTESTINAL: Abdomen soft, non-tender, nondistended. EXTREMITIES: No cyanosis NEUROLOGICAL: awake and alert, normal speech. Assessment/Plan Problem List: (1) Neutropenia Status: Acute Plan: --etiology unknown --records requested from Dr. Peters --has apparently been happening since 03/2016. was receiving periodic Neupogen shots--last shot reported 06/26/16 just before patient moved to [place]. --Followed by Dr. Eric Peters of [facility] (main # ) (medical records: [phone], fax:[phone]) (2) Normocytic anemia Status: Acute Plan: --folic acid and vitamin B12 WNL --Likely secondary to renal insufficiency--patient would be a good candidate for EPO --Serum iron studies more consistent with anemia of chronic disease--elevated ferritin, low TIBC, normal saturation. --stool for occult blood ordered--waiting on patient to have BM (3) Squamous cell carcinoma Status: Acute Plan: --diagnosis of squamous cell carcinoma which was diagnosed three years ago while she was still residing in [place]. --underwent surgical resection followed by radiation. Assessment 65y/o female admitted with hypotension, dehydration, acute on chronic renal failure. Hematology/Oncology consulted for leukopenia. Plan 1. request records from Dr. Munguia 2. bone marrow biopsy today 3. monitor CBC Problem Qualifiers (1) Neutropenia: Qualified Code: D70.9 - Neutropenia, unspecified type Nia Fuentes Jul 27, 2016 11:42
[2016-07-27 11:44] LABS: ANA SCREEN POS (NEG)
--- NOTE | 2016-07-27 12:56 | RADRPT ---
EXAM DATE/TIME: 07/27/2016 11:37 [place] COMPARISON: No previous studies available for comparison. INDICATIONS : Neutropenia. SEDATION TIME: 30 minutes BIOPSY SITE: Right pelvis MEDICATION(S): 1.) 2.5 mg midazolam (Versed) IV 2.) 125 mcg fentanyl (Sublimaze) IV DEVICE(S): 1.) 11 gauge Bone marrow biopsy needle MEDICAL HISTORY : Carcinoma, lung. Chronic obstructive pulmonary disease. Renal failure SURGICAL HISTORY : Cholecystectomy ENCOUNTER: Initial ACUITY: 1 day PAIN SCORE: 0/10 LOCATION: Right pelvis A total of one core specimen(s) were obtained and sent to the laboratory for pathologic evaluation. PROCEDURE: 1. CT guided bone marrow biopsy. 2. Conscious sedation with continuous EKG and oximetry monitoring. Prior to the procedure informed consent was obtained. Any appropriate prior imaging studies were rev iewed. The site was prepped in a sterile fashion. Full sterile technique was used, including cap, mask, padmini rile gloves and gown and a large sterile sheet. Hand hygiene and 2% chlorhexidine and/or betadine/al cohol prep was utilized per protocol for cutaneous antisepsis. The skin and subcutaneous tissues wer e infiltrated with local anesthetic solution. With CT guidance the previously identified target was localized. Biopsy was performed using the presc ribed needle as above. Following biopsy marrow aspiration was performed with repeat puncture. Adequa te hemostasis was obtained with compression at the puncture site. Follow-up CT scan reveals no hemorrhage. Conscious sedation was performed with the prescribed dosages and duration as above. The patient anselmo ated the procedure well and there were no complications. EKG and oximetry remained stable throughout the procedure. The patient was sent to Radiology Outpatient Unit in stable condition. CONCLUSION: 1. Uncomplicated CT guided bone marrow aspirate. 2. Uncomplicated CT guided bone marrow biopsy. Blayne Sheets MD FACR on July 27, 2016 at 12:55 Board Certified Radiologist. This report was verified electronically.
[2016-07-27 13:49] LABS: BONE MARROW PROCESSING COMPLETE; IRON STAIN DONE; JENNER GIEMSA STAIN DONE
[2016-07-27] MEDS: SODIUM CHLORIDE 0.9% FLUSH 5 ML FLUSH IV FLUSH SCH ×2 (15:04→22:05)
[2016-07-27] MEDS: DOCUSATE SODIUM 100 MG CAP PO SCH ×2 (15:04→21:00)
[2016-07-27] MEDS: TOLTERODINE TARTRATE 2 MG CAP LA PO SCH (15:05)
[2016-07-27] MEDS: POLYETHYLENE GLYCOL 17 GM PKG PO SCH ×2 (15:06→21:00)
[2016-07-27] MEDS: CALCITRIOL 0.25 MCG CAP PO SCH (15:07)
[2016-07-27] MEDS: SODIUM BICARBONATE 650 MG TAB PO SCH ×2 (15:08→22:05)
--- NOTE | 2016-07-27 16:09 | HHI.IDPN ---
Note Infectious Disease Note Patient feels tired. Had Bone marrow biopsy today. Notes pain at the site at r. hip. Alert. No SOB, THOMAS, chest discomfort. On nasal O2. No chills. Afebrile. WBC still very low. Absolute neutrophil count 672. Tolerating Levaquin. Presented with altered mental status, weakness, malaise, headache, back pain, chest pain. cough, abdominal pain and intermittent nausea and vomiting. Found to be neutropenic. PAST MEDICAL HISTORY 1. Non-small cell lung cancer. 2. Chronic kidney disease. 3. Pancytopenia. 4. Hypertension. 5. Left forearm AV fistula. 6. Cholecystectomy. 7. Tubal ligation. 8. Aneurysm. 9. Diabetes mellitus. ALLERGIES 1. CIPRO. ( patient notes that she had itching but no rash with cipro and that she tolerated Levaquin before) 2. CODEINE. 3. MORPHINE. ANTIBIOTICS Ceftazidime. Levaquin. OBJECTIVE: Vital Signs Date Time Temp Pulse Resp B/P Pulse Ox O2 Delivery O2 Flow Rate FiO2 07/27/16 13:00 67 16 111/42 100 07/27/16 12:30 63 16 107/44 100 07/27/16 12:15 98.1 60 16 116/39 96 07/27/16 10:00 62 07/27/16 08:00 98.1 61 16 102/52 99 07/27/16 00:02 98.4 74 18 143/61 98 07/26/16 22:34 99 Nasal Cannula 2.00 07/26/16 19:59 98.1 75 19 138/60 100 07/26/16 16:06 99.3 78 17 125/58 96 Laboratory Tests Test 07/26/16 07/27/16 06:47 06:33 White Blood Count 1.4 TH/MM3 1.6 TH/MM3 Red Blood Count 2.97 MIL/MM3 3.30 MIL/MM3 Hemoglobin 8.3 GM/DL 9.3 GM/DL Hematocrit 24.7 % 27.6 % Mean Corpuscular Volume 83.2 FL 83.6 FL Mean Corpuscular Hemoglobin 28.0 PG 28.2 PG Mean Corpuscular Hemoglobin 33.7 % 33.7 % Concent Red Cell Distribution Width 13.1 % 13.4 % Platelet Count 213 TH/MM3 245 TH/MM3 Mean Platelet Volume 6.9 FL 7.1 FL Neutrophils (%) (Auto) 20.9 % 36.4 % Lymphocytes (%) (Auto) 31.5 % 24.0 % Monocytes (%) (Auto) 44.7 % 35.9 % Eosinophils (%) (Auto) 0.4 % 0.8 % Basophils (%) (Auto) 2.5 % 2.9 % Neutrophils # (Auto) 0.3 TH/MM3 0.6 TH/MM3 Lymphocytes # (Auto) 0.4 TH/MM3 0.4 TH/MM3 Monocytes # (Auto) 0.6 TH/MM3 0.6 TH/MM3 Eosinophils # (Auto) 0.0 TH/MM3 0.0 TH/MM3 Basophils # (Auto) 0.0 TH/MM3 0.0 TH/MM3 CBC Comment AUTO DIFF AUTO DIFF Differential Total Cells 100 100 Counted Neutrophils % (Manual) 20 % 42 % Band Neutrophils % 6 % Lymphocytes % 32 % 31 % Monocytes % 38 % 25 % Eosinophils % 1 % Basophils % 3 % 1 % Neutrophils # (Manual) 0.4 TH/MM3 0.7 TH/MM3 Differential Comment FINAL DIFF FINAL DIFF MANUAL MANUAL Platelet Estimate NORMAL NORMAL Platelet Morphology Comment NORMAL NORMAL Red Cell Morphology Comment NORMAL Metamyelocytes 1 % Laboratory Tests Test 07/26/16 07/27/16 06:47 06:33 Sodium Level 143 MEQ/L 140 MEQ/L Potassium Level 3.8 MEQ/L 3.6 MEQ/L Chloride Level 110 MEQ/L 108 MEQ/L Carbon Dioxide Level 23.9 MEQ/L 25.5 MEQ/L Anion Gap 9 MEQ/L 7 MEQ/L Blood Urea Nitrogen 39 MG/DL 36 MG/DL Creatinine 3.84 MG/DL 3.70 MG/DL Estimat Glomerular Filtration 12 ML/MIN 12 ML/MIN Rate Random Glucose 76 MG/DL 63 MG/DL Calcium Level 8.1 MG/DL 8.6 MG/DL 25-Hydroxy Vitamin D Total 26.7 ng/ML Parathyroid Hormone (Intact) 287.4 PG/ML Iron Level 66 MCG/DL Total Iron Binding Capacity 154 MCG/DL Percent Iron Saturation 42.9 % Ferritin 477 NG/ML Magnesium Level 1.8 MG/DL Microbiology Date/Time Procedure Status Source Growth 07/22/16 22:00 Aerobic Blood Culture - Preliminary Resulted Blood Peripheral NO GROWTH IN 3 DAYS 07/22/16 22:00 Anaerobic Blood Culture - Preliminary Resulted Blood Peripheral NO GROWTH IN 3 DAYS 07/22/16 22:10 Aerobic Blood Culture - Preliminary Resulted Blood Peripheral NO GROWTH IN 3 DAYS 07/22/16 22:10 Anaerobic Blood Culture - Preliminary Resulted Blood Peripheral NO GROWTH IN 3 DAYS 07/22/16 22:20 Urine Culture - Final Complete Urine Clean Catch Pseudomonas Aeruginosa 07/23/16 00:20 Gram Stain - Final Complete Sputum Expectorated Sputum 07/23/16 00:20 Sputum Culture - Final Complete Stenotrophomonas Maltophilia PHYSICAL EXAMINATION GENERAL: No acute distress. HEENT: No icterus. Oropharynx no visible lesions. No thrush. NECK: Supple without adenopathy or swelling. Trachea midline. LUNGS: Slight rhonchi at the r. base. Slight wheezing at the left base. HEART: Regular S1 and S2. Slight systolic murmur. ABDOMEN: Bowel sounds present. Soft. No tenderness appreciated. EXTREMITIES: The left upper extremity has an AV fistula which appears intact. No edema. No lesions. NEUROLOGIC: Nonfocal. SKIN: No rash. PSYCH: Anxious. IMPRESSION 1. Sepsis. 2. Persistent neutropenia. ? etiology. Bone Marrow biopsy done today. Trazodone d/jonas. Patient has been on it for the past 5 years for sleep. 3. Abnormal chest x-ray indicating pneumonia. Stenotrophomonas. CXR is worse. 4. Urinary tract infection. Pseudomonas. 5. Acute kidney disease on chronic kidney disease. RECOMMENDATIONS 1. Continue Ceftazidime. 2. Continue Levaquin. 3. Repeat CXR in Am 07/28/16. 4. Monitor clinical status. 5. Monitor counts and BM result. Kameron Santos MD Jul 27, 2016 16:09
--- NOTE | 2016-07-27 17:24 | HHI.PR ---
Subjective Remarks The patient's family was at the bedside and then many questions which were answered. The patient said that her pain was 5 out of 10 in severity. She said she would like nebulizer treatments [id number]. Discussed with nursing. Objective Vitals Vital Signs Date Time Temp Pulse Resp B/P Pulse Ox O2 Delivery O2 Flow Rate FiO2 07/27/16 16:00 98.1 63 18 105/58 94 07/27/16 13:00 67 16 111/42 100 07/27/16 12:30 63 16 107/44 100 07/27/16 12:15 98.1 60 16 116/39 96 07/27/16 10:00 62 07/27/16 08:00 98.1 61 16 102/52 99 07/27/16 00:02 98.4 74 18 143/61 98 07/26/16 22:34 99 Nasal Cannula 2.00 07/26/16 19:59 98.1 75 19 138/60 100 I/O 07/26/16 07/26/16 07/26/16 07/27/16 07/27/16 07/27/16 07:00 15:00 23:00 07:00 15:00 23:00 Intake Total 120 ml 480 ml 733 ml 927 ml Balance 120 ml 480 ml 733 ml 927 ml Intake Oral 120 ml 480 ml 240 ml IV Total 733 ml 687 ml # Voids 0 3 2 # Bowel Movements 0 0 Result Diagram: 07/27/16 0633 07/27/16 0633 Imaging Last Impressions Bone Biopsy CT 07/27/16 0758 Signed Impressions: Service Date/Time: Wednesday, July 27, 2016 11:37 - CONCLUSION: 1. Uncomplicated CT guided bone marrow aspirate. 2. Uncomplicated CT guided bone marrow biopsy. Blayne Sheets MD FACR Chest X-Ray 07/25/16 0600 Signed Impressions: Service Date/Time: Monday, July 25, 2016 06:27 - CONCLUSION: 1. Bibasilar airspace disease increased from July 22. Doug Sheriff MD Renal Ultrasound 07/24/16 0000 Signed Impressions: Service Date/Time: Sunday, July 24, 2016 21:08 - CONCLUSION: 1. The kidneys appear decreased in size. There is increased echogenicity seen at the right kidney. These findings can suggest medical renal disease. 2. Splenomegaly. Jose Clark MD Head CT 07/22/162057 Signed Impressions: Service Date/Time: Friday, July 22, 2016 21:12 - CONCLUSION: Moderate atrophy. No acute findings in the brain. 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 Air-fluid levels in both maxillary sinuses suggest acute maxillary sinusitis. Claudy Denis MD Objective Remarks GENERAL: Well-nourished, well-developed patient. SKIN: Warm and dry. HEAD: Normocephalic. EYES: No scleral icterus. No injection or drainage. NECK: Supple, trachea midline. No JVD or lymphadenopathy. CARDIOVASCULAR: Regular rate and rhythm without murmurs, gallops, or rubs. RESPIRATORY: Bilateral crackles appreciated. GASTROINTESTINAL: Abdomen soft, non-tender, nondistended. MUSCULOSKELETAL: No cyanosis, or edema. BACK: Nontender without obvious deformity. No CVA tenderness. NEURO: No gross deficits. PSYCH: Mood and affect appropriate. Procedures Bone marrow biopsy 2/3. Medications and IVs Current Medications Medications (Trade) Dose Ordered Sig/Carlos Route Start Time Stop Time Status Last Admin (Tylenol) 650 mg Q6H PRN PO 07/22/16 23:00 07/26/16 08:27 (Zofran Inj) 4 mg Q6H PRN IV 07/22/16 23:00 (Reglan Inj) 5 mg Q6H PRN IV 07/22/16 23:00 (Colace) 100 mg BID PO 07/23/16 09:00 07/27/16 15:04 (Ambien) 5 mg HS PRN PO 07/22/16 23:00 Miscellaneous Information 1 Q361D XX 07/22/16 23:00 (NS Flush) 2 ml UNSCH PRN IV FLUSH 07/22/16 23:00 (NS Flush) 2 ml BID IV FLUSH 07/23/16 09:00 07/27/16 15:04 (Xanax) 0.5 mg Q12H PRN PO 07/22/16 23:15 07/27/16 15:08 (Ecotrin Ec) 81 mg DAILY PO 07/23/16 09:00 07/26/16 08:19 (Symbicort 160-4.5 Inh) 2 puff Q12HR INH 07/23/16 09:00 07/27/16 09:26 (Neurontin) 100 mg TID PO 07/23/16 09:00 07/27/16 15:09 (Mucinex Er) 600 mg TID PO 07/23/16 09:00 07/27/16 15:09 (Habitrol 21 Mg Patch.24 Hr) 1 patch DAILY T-DERMAL 07/23/16 09:00 07/27/16 09:28 (Spiriva Inh) 18 mcg DAILY INH 07/23/16 09:00 07/27/16 09:25 (Detrol La) 2 mg DAILY PO 07/23/16 09:00 07/27/16 15:05 Miscellaneous Information 1 DAILY T-DERMAL 07/23/16 09:00 07/27/16 09:00 (Pill Splitter) 1 ea UNSCH PRN OTHER 07/23/16 00:45 (Roxicodone) 5 mg Q4H PRN PO 07/23/16 10:00 (Roxicodone) 10 mg Q4H PRN PO 07/23/16 10:00 07/26/16 21:53 (Miralax) 17 gm BID PO 07/23/16 10:30 07/27/16 15:06 (Senokot) 17.2 mg DAILY PO 07/23/16 10:30 07/25/16 08:54 Sodium Bicarbonate 650 mg 650 mg Q12HR PO 07/24/16 21:00 07/27/16 15:08 (Fortaz Inj/NS Inj) 100 ml @ 200 mls/hr DAILY IV 07/25/16 16:00 07/27/16 09:28 (Levaquin) 250 mg Q48H PO 07/25/16 18:00 07/25/16 18:07 (Rocaltrol) 0.25 mcg DAILY PO 07/27/16 09:00 07/27/16 15:07 A/P Assessment and Plan Pneumonia CXR with left sided infiltrate. CXR 07/25 with worsening airspace disease. ID consult appreciated. Sputum culture growing stenotrophomonas, urine culture growing pseudomonas. - Change Zosyn to Ceftaz per sensitivities. Renally dosed. Follow up with ID. PO Levaquin added. - oxygen and nebs as needed. Start scheduled nebs 2/3. Neutropenia The pt has a history of neutropenia for which she was followed by a panel lay up worker. She received Neupogen earlier this month. The pt was found to have an ANC of 0.6. Hematology consult appreciated. Bone marrow biopsy performed 07/27. - follow CBC with diff. - further evaluation per hematology. - neutropenic precautions. - Continue antibiotics. Lung cancer The pt is s/p treatment with surgery and radiation and is currently in remission. Has neutropenia as above. - follow up with oncology. - Oxygen and nebs as above. COPD Not in exacerbation at this time. Still smoking 6-8 cigarettes daily. - Symbicort, guaifenesin, Spiriva, DuoNeb. - Nicotine patch. - smoking cessation instruction. - Standing nebs. Renal Failure Creatinine was found to be 4.68. She has stage 5 renal disease for which she was followed by a muffler installer. She had a fistula placed about three weeks ago. Appreciate nephrology input. S/p IVFs. Creatinine stable 07/26. - follow urine output. - Nephrology follow-up. - avoid nephrotoxic agents. Hypoglycemia Likely s/t decreased PO intake. - D5W. - encourage PO intake. Add Nepro. Anemia Hemoglobin is stable. He was secondary to renal disease. - Epogen as needed. - Follow CBC. - follow up with hematology. PPx: Heparin. Discharge Planning Awaiting clinical improvement. Nirav Ortiz DO Jul 27, 2016 17:24
[2016-07-27] MEDS ORDERED: POTASSIUM CHLORIDE 25 MEQ EFFERVESCENT TAB PO ONE (17:30)
[2016-07-27] MEDS ORDERED: POTASSIUM CHLORIDE 20 MEQ CONTROLLED RELEASE TAB PO ONE (17:30)
[2016-07-27] MEDS: RESP: ALBUTEROL 2.5 MG/IPRATROPIUM 0.5 MG NEB (SCH) NEB (18:25)
[2016-07-27] MEDS: LEVOFLOXACIN 250 MG TAB PO SCH (18:31)
--- NOTE | 2016-07-27 18:43 | RADRPT ---
EXAM DATE/TIME: 07/27/2016 17:01 [facility] COMPARISON: CHEST SINGLE AP, July 25, 2016, 6:27. INDICATIONS : Shortness of breath MEDICAL HISTORY : Chronic obstructive pulmonary disease. Emphysema SURGICAL HISTORY : None. ENCOUNTER: Subsequent ACUITY: 1 week PAIN SCORE: 0/10 LOCATION: Bilateral chest FINDINGS: There is improvement in the aeration of the lungs probably improving pulmonary edema, however persist ent left mid and lower lung parenchymal consolidation remains. CONCLUSION: Persistent left lung consolidation, however improvement in pulmonary edema. Ivana Dumont MD on July 27, 2016 at 18:41 Board Certified Radiologist. This report was verified electronically.
--- NOTE | 2016-07-27 18:46 | HHI.NPPN ---
Subjective History of Present Illness 65-year-old white female with history of lung cancer, chronic kidney disease who moved to this area having some cough Review of Systems General Constitutional: Fatigue Respiratory Lungs: Cough Objective Data Data 07/26/16 07/27/16 19:00 07:00 Intake Total 480 ml 1660 ml Balance 480 ml 1660 ml Intake Oral 480 ml 240 ml IV Total 1420 ml # Voids 3 2 # Bowel Movements 0 Vital Signs Date Time Temp Pulse Resp B/P Pulse Ox O2 Delivery O2 Flow Rate FiO2 07/27/16 16:00 98.1 63 18 105/58 94 07/27/16 13:00 67 16 111/42 100 07/27/16 12:30 63 16 107/44 100 07/27/16 12:15 98.1 60 16 116/39 96 07/27/16 10:00 62 07/27/16 08:00 98.1 61 16 102/52 99 07/27/16 00:02 98.4 74 18 143/61 98 07/26/16 22:34 99 Nasal Cannula 2.00 07/26/16 19:59 98.1 75 19 138/60 100 -: 07/27/16 0633 07/27/16 0633 Physical Exam General Appearance: Well Developed Neck Neck Exam: Neck Supple Pulmonary Resp Exam: Decreased Bases Cardiology CV Exam: Regular, Normal Sinus Rhythm Gastrointestinal/Abdomen GI Exam: Soft, Non-Tender, Bowel Sounds Present Integumentary Skin Exam: Clear Neurologic Neuro Exam: Alert, Awake Assessment/Plan Problem List: (1) Chronic kidney disease Plan: Patient has advanced kidney disease and she has AV fistula Creatinine 3.7. here due to low WBC BM biopsy done There is no urgent need to start dialysis at this hospitalization creatinine remained at 3.7 (2) COPD (chronic obstructive pulmonary disease) Plan: Patient has been admitted and treated (3) Neutropenia Plan: Likely due to bone marrow dysfunction oncology following (4) Sepsis Plan: Patient has UTI and possible bronchitis pneumonia on Ceftazidime Problem Qualifiers (1) Chronic kidney disease: Qualified Code: N18.5 - Chronic kidney disease, stage 5 (2) Neutropenia: Qualified Code: D70.9 - Neutropenia, unspecified type (3) Sepsis: Qualified Code: A41.9 - Sepsis, due to unspecified organism Oscar Jurado MD Jul 27, 2016 18:46
[2016-07-28] VITALS (8 sets, daily range): BP systolic 102–135; BP diastolic 53–62; PULSE 58–87; RESP 17–20; TEMP 96.9–98.7; O2SAT 98–100
[2016-07-28] MEDS: ALPRAZolam 0.5 MG TAB PO PRN ×3 (03:20→22:42)
[2016-07-28] MEDS: DEXTROSE 5% IN WATE 1000ML INJ 1,000 ML IV SCH (05:13)
[2016-07-28 07:47] LABS: HEMATOCRIT 24.7 % (35.0-46.0); MEAN CORPUSCULAR HEMOGLOBIN 28.1 PG (27.0-34.0); PLATELET COUNT 187 TH/MM3 (150-450); RED BLOOD COUNT 2.91 MIL/MM3 (4.00-5.30); RED CELL DISTRIBUTION WIDTH 13.2 % (11.6-17.2); WHITE BLOOD COUNT 1.3 TH/MM3 (4.0-11.0)
[2016-07-28 08:02] LABS: REVIEW FLAG FINAL
[2016-07-28 08:05] LABS: BICARBONATE 24.3 MEQ/L (21.0-32.0); MAGNESIUM 1.8 MG/DL (1.5-2.5)
[2016-07-28 08:54] LABS: POTASSIUM 4.6 MEQ/L (3.5-5.1)
[2016-07-28] MEDS: REMOVE OLD PATCH T-DERMAL SCH (09:00)
[2016-07-28] MEDS: RESP: ALBUTEROL 2.5 MG/IPRATROPIUM 0.5 MG NEB (SCH) NEB ×2 (09:19→17:26)
[2016-07-28] MEDS: POLYETHYLENE GLYCOL 17 GM PKG PO SCH ×2 (09:21→20:38)
[2016-07-28] MEDS: TOLTERODINE TARTRATE 2 MG CAP LA PO SCH (09:21)
[2016-07-28] MEDS: SODIUM CHLORIDE 0.9% FLUSH 5 ML FLUSH IV FLUSH SCH ×2 (09:21→20:38)
[2016-07-28] MEDS: CALCITRIOL 0.25 MCG CAP PO SCH (09:21)
[2016-07-28] MEDS: ASPIRIN EC 81 MG TABEC PO SCH (09:21)
[2016-07-28] MEDS: GABAPENTIN 100 MG CAP PO SCH ×3 (09:21→16:29)
[2016-07-28] MEDS: SODIUM BICARBONATE 650 MG TAB PO SCH ×2 (09:21→20:37)
[2016-07-28] MEDS: SENNOSIDES 8.6 MG TAB PO SCH (09:21)
[2016-07-28] MEDS: DOCUSATE SODIUM 100 MG CAP PO SCH ×2 (09:21→20:37)
[2016-07-28] MEDS: guaiFENesin E.R. 600 MG TAB PO SCH ×3 (09:21→16:29)
[2016-07-28] MEDS: SODIUM CHLORIDE 0.9% IV SCH (09:22)
[2016-07-28] MEDS: CEFTAZIDIME IV SCH (09:22)
[2016-07-28] MEDS: NICOTINE 21 MG/24 HR PATCH T-DERMAL SCH (09:22)
[2016-07-28] MEDS: BUDESONIDE-FORMOTEROL 160/4.5 MCG INHALER INH SCH ×2 (09:23→20:37)
[2016-07-28] MEDS: TIOTROPIUM BROMIDE 18 MCG INH INH SCH (09:23)
--- NOTE | 2016-07-28 12:38 | HHI.PR ---
Subjective Remarks The patient wants to go home. She has no acute complaints. She was resting comfortably. Discussed with nursing. Objective Vitals Vital Signs Date Time Temp Pulse Resp B/P Pulse Ox O2 Delivery O2 Flow Rate FiO2 07/28/16 08:00 98.1 72 18 112/54 99 07/28/16 08:00 58 07/28/16 04:31 98.1 70 18 114/53 99 07/28/16 00:14 98.7 66 17 135/60 100 07/27/16 20:19 98.7 80 18 127/58 95 07/27/16 16:00 98.1 63 18 105/58 94 07/27/16 13:00 67 16 111/42 100 I/O 07/27/16 07/27/16 07/27/16 07/28/16 07/28/16 07/28/16 07:00 15:00 23:00 07:00 15:00 23:00 Intake Total 927 ml 240 ml Balance 927 ml 240 ml Intake Oral 240 ml 240 ml IV Total 687 ml # Voids 2 1 4 Result Diagram: 07/28/16 0658 07/28/16 0658 Imaging Last Impressions Bone Biopsy CT 07/27/16 0758 Signed Impressions: Service Date/Time: Wednesday, July 27, 2016 11:37 - CONCLUSION: 1. Uncomplicated CT guided bone marrow aspirate. 2. Uncomplicated CT guided bone marrow biopsy. Blayne Sheets MD FACR Chest X-Ray 07/27/16 0000 Signed Impressions: Service Date/Time: Wednesday, July 27, 2016 17:01 - CONCLUSION: Persistent left lung consolidation, however improvement in pulmonary edema. Ivana Dumont MD Renal Ultrasound 07/24/16 0000 Signed Impressions: Service Date/Time: Sunday, July 24, 2016 21:08 - CONCLUSION: 1. The kidneys appear decreased in size. There is increased echogenicity seen at the right kidney. These findings can suggest medical renal disease. 2. Splenomegaly. Jose Clark MD Head CT 07/22/162057 Signed Impressions: Service Date/Time: Friday, July 22, 2016 21:12 - CONCLUSION: Moderate atrophy. No acute findings in the brain. 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 Air-fluid levels in both maxillary sinuses suggest acute maxillary sinusitis. Claudy Denis MD Objective Remarks GENERAL: Well-nourished, well-developed patient. SKIN: Warm and dry. HEAD: Normocephalic. EYES: No scleral icterus. No injection or drainage. NECK: Supple, trachea midline. No JVD or lymphadenopathy. CARDIOVASCULAR: Regular rate and rhythm without murmurs, gallops, or rubs. RESPIRATORY: Bilateral crackles appreciated, worse on the left. GASTROINTESTINAL: Abdomen soft, non-tender, nondistended. MUSCULOSKELETAL: No cyanosis, or edema. BACK: Nontender without obvious deformity. No CVA tenderness. NEURO: No gross deficits. PSYCH: Mood and affect appropriate. Procedures Bone marrow biopsy /. Medications and IVs Current Medications Medications (Trade) Dose Ordered Sig/Carlos Route Start Time Stop Time Status Last Admin (Tylenol) 650 mg Q6H PRN PO 07/22/16 23:00 07/26/16 08:27 (Zofran Inj) 4 mg Q6H PRN IV 07/22/16 23:00 (Reglan Inj) 5 mg Q6H PRN IV 07/22/16 23:00 (Colace) 100 mg BID PO 07/23/16 09:00 07/28/16 09:21 (Ambien) 5 mg HS PRN PO 07/22/16 23:00 Miscellaneous Information 1 Q361D XX 07/22/16 23:00 (NS Flush) 2 ml UNSCH PRN IV FLUSH 07/22/16 23:00 (NS Flush) 2 ml BID IV FLUSH 07/23/16 09:00 07/28/16 09:21 (Xanax) 0.5 mg Q12H PRN PO 07/22/16 23:15 07/28/16 03:20 (Ecotrin Ec) 81 mg DAILY PO 07/23/16 09:00 07/28/16 09:21 (Symbicort 160-4.5 Inh) 2 puff Q12HR INH 07/23/16 09:00 07/28/16 09:23 (Neurontin) 100 mg TID PO 07/23/16 09:00 07/28/16 11:45 (Mucinex Er) 600 mg TID PO 07/23/16 09:00 07/28/16 11:45 (Habitrol 21 Mg Patch.24 Hr) 1 patch DAILY T-DERMAL 07/23/16 09:00 07/28/16 09:22 (Spiriva Inh) 18 mcg DAILY INH 07/23/16 09:00 07/28/16 09:23 (Detrol La) 2 mg DAILY PO 07/23/16 09:00 07/28/16 09:21 Miscellaneous Information 1 DAILY T-DERMAL 07/23/16 09:00 07/28/16 09:00 (Pill Splitter) 1 ea UNSCH PRN OTHER 07/23/16 00:45 (Roxicodone) 5 mg Q4H PRN PO 07/23/16 10:00 (Roxicodone) 10 mg Q4H PRN PO 07/23/16 10:00 07/28/16 09:37 (Miralax) 17 gm BID PO 07/23/16 10:30 07/28/16 09:21 (Senokot) 17.2 mg DAILY PO 07/23/16 10:30 07/28/16 09:21 Sodium Bicarbonate 650 mg 650 mg Q12HR PO 07/24/16 21:00 07/28/16 09:21 (Fortaz Inj/NS Inj) 100 ml @ 200 mls/hr DAILY IV 07/25/16 16:00 07/28/16 09:22 (Levaquin) 250 mg Q48H PO 07/25/16 18:00 07/27/16 18:31 Calcitriol 0.25 mcg 0.25 mcg DAILY PO 07/27/16 09:00 07/28/16 09:21 (D5W 1000 ml Inj) 1,000 ml @ 100 mls/hr Q10H IV 07/27/16 17:30 07/28/16 13:29 07/28/16 05:13 A/P Assessment and Plan Pneumonia CXR with left sided infiltrate. CXR 07/27 with persistent consolidation on the left but improving pulmonary edema.. ID consult appreciated. Sputum culture growing stenotrophomonas, urine culture growing pseudomonas. - Change Zosyn to Ceftaz per sensitivities. Renally dosed. Follow up with ID. PO Levaquin added. - oxygen and nebs as needed. Started scheduled nebs 2/3. Neutropenia The pt has a history of neutropenia for which she was followed by a chicken cutter. She received Neupogen earlier this month. The pt was found to have an ANC of 0.6. Hematology consult appreciated. Bone marrow biopsy performed 07/27. - follow CBC with diff. - further evaluation per hematology. - neutropenic precautions. - Continue antibiotics. - Follow pathology. Lung cancer The pt is s/p treatment with surgery and radiation and is currently in remission. Has neutropenia as above. - follow up with oncology. - Oxygen and nebs as above. COPD Not in exacerbation at this time. Still smoking 6-8 cigarettes daily. - Symbicort, guaifenesin, Spiriva, DuoNeb. - Nicotine patch. - smoking cessation instruction. - Standing nebs. Renal Failure Creatinine was found to be 4.68. 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 She had a fistula placed about three weeks ago. Appreciate nephrology input. S/p IVFs. Creatinine improved 07/28. - follow urine output. - Nephrology follow-up. - avoid nephrotoxic agents. Hypoglycemia Likely s/t decreased PO intake. Improved 07/28. - D5W. - encourage PO intake. Added Nepro. Anemia Likely secondary to renal disease. - Epogen as needed. - Follow CBC and transfuse as needed. - follow up with hematology. PPx: Heparin. Discharge Planning Awaiting clinical improvement. Nirav Ortiz DO Jul 28, 2016 12:38
--- NOTE | 2016-07-28 17:33 | HHI.NPPN ---
Subjective History of Present Illness 65-year-old white female with history of lung cancer, chronic kidney disease who moved to this area having some cough Additional Remarks No acute complaints Review of Systems General Constitutional: Fatigue Respiratory Lungs: Cough Objective Data Data 07/27/16 07/28/16 19:00 07:00 Intake Total 240 ml Balance 240 ml Intake Oral 240 ml # Voids 5 Vital Signs Date Time Temp Pulse Resp B/P Pulse Ox O2 Delivery O2 Flow Rate FiO2 07/28/16 16:00 96.9 74 20 108/62 99 07/28/16 12:00 98.1 75 18 102/54 99 07/28/16 08:00 98.1 72 18 112/54 99 07/28/16 08:00 58 07/28/16 04:31 98.1 70 18 114/53 99 07/28/16 00:14 98.7 66 17 135/60 100 07/27/16 20:19 98.7 80 18 127/58 95 -: 07/28/16 0658 07/28/16 0658 Physical Exam General Appearance: Well Developed Neck Neck Exam: Neck Supple Pulmonary Resp Exam: Decreased Bases Cardiology CV Exam: Regular, Normal Sinus Rhythm Gastrointestinal/Abdomen GI Exam: Soft, Non-Tender, Bowel Sounds Present Integumentary Skin Exam: Clear Neurologic Neuro Exam: Alert, Awake Assessment/Plan Problem List: (1) Chronic kidney disease Plan: Patient has advanced kidney disease and she has AV fistula Creatinine 3.7 -> 3.4 today. Here due to low WBC, BM biopsy done There is no urgent need to start dialysis at this hospitalization. Volume status and electrolytes, creatinine stable at this point. (2) COPD (chronic obstructive pulmonary disease) Plan: Patient has been admitted and treated (3) Neutropenia Plan: Likely due to bone marrow dysfunction oncology following (4) Sepsis Plan: Patient has UTI and possible bronchitis pneumonia on Ceftazidime Problem Qualifiers (1) Chronic kidney disease: Qualified Code: N18.5 - Chronic kidney disease, stage 5 (2) Neutropenia: Qualified Code: D70.9 - Neutropenia, unspecified type (3) Sepsis: Qualified Code: A41.9 - Sepsis, due to unspecified organism Shaheed Bourgeois MD Jul 28, 2016 17:33
[2016-07-29] VITALS (8 sets, daily range): BP systolic 98–121; BP diastolic 50–60; PULSE 61–77; RESP 18–20; TEMP 97.4–98.3; O2SAT 93–100
[2016-07-29] MEDS: BUDESONIDE-FORMOTEROL 160/4.5 MCG INHALER INH SCH ×2 (07:57→22:16)
[2016-07-29] MEDS: TIOTROPIUM BROMIDE 18 MCG INH INH SCH (07:57)
[2016-07-29] MEDS: GABAPENTIN 100 MG CAP PO SCH ×3 (07:58→16:23)
[2016-07-29] MEDS: SENNOSIDES 8.6 MG TAB PO SCH (07:58)
[2016-07-29] MEDS: NICOTINE 21 MG/24 HR PATCH T-DERMAL SCH (07:58)
[2016-07-29] MEDS: REMOVE OLD PATCH T-DERMAL SCH (07:58)
[2016-07-29] MEDS: CALCITRIOL 0.25 MCG CAP PO SCH (07:58)
[2016-07-29] MEDS: guaiFENesin E.R. 600 MG TAB PO SCH ×3 (07:58→16:23)
[2016-07-29] MEDS: DOCUSATE SODIUM 100 MG CAP PO SCH ×2 (07:58→22:15)
[2016-07-29] MEDS: SODIUM BICARBONATE 650 MG TAB PO SCH ×2 (07:58→22:15)
[2016-07-29] MEDS: TOLTERODINE TARTRATE 2 MG CAP LA PO SCH (07:59)
[2016-07-29] MEDS: POLYETHYLENE GLYCOL 17 GM PKG PO SCH ×2 (07:59→22:17)
[2016-07-29] MEDS: ASPIRIN EC 81 MG TABEC PO SCH (07:59)
[2016-07-29] MEDS: SODIUM CHLORIDE 0.9% FLUSH 5 ML FLUSH IV FLUSH SCH ×2 (07:59→22:16)
[2016-07-29] MEDS: SODIUM CHLORIDE 0.9% IV SCH (08:13)
[2016-07-29] MEDS: CEFTAZIDIME IV SCH (08:13)
[2016-07-29 09:51] LABS: AUTOMATED NEUTROPHIL # 0.8 TH/MM3 (1.8-7.7); BASOPHIL % 2.1 % (0.0-2.0); EOSINOPHIL % 0.4 % (0.0-4.0); HEMATOCRIT 27.5 % (35.0-46.0); LYMPH % 23.4 % (9.0-44.0); LYMPHOCYTE # 0.4 TH/MM3 (1.0-4.8); MEAN CELL VOLUME 84.7 FL (80.0-100.0); MEAN CORPUSCULAR HEMOGLOBIN 27.7 PG (27.0-34.0); MEAN CORPUSCULAR HGB CONC 32.7 % (32.0-36.0); MONO % 27.5 % (0.0-8.0); NEUT % 46.6 % (16.0-70.0); PLATELET COUNT 211 TH/MM3 (150-450); RED BLOOD COUNT 3.25 MIL/MM3 (4.00-5.30); RED CELL DISTRIBUTION WIDTH 13.2 % (11.6-17.2); WHITE BLOOD COUNT 1.7 TH/MM3 (4.0-11.0)
[2016-07-29 10:03] LABS: HEMO FLAGS AUTO DIFF
[2016-07-29] MEDS: RESP: ALBUTEROL 2.5 MG/IPRATROPIUM 0.5 MG NEB (SCH) NEB ×2 (10:08→16:00)
[2016-07-29 10:18] LABS: BICARBONATE 25.5 MEQ/L (21.0-32.0); MAGNESIUM 2.1 MG/DL (1.5-2.5); POTASSIUM 4.5 MEQ/L (3.5-5.1)
[2016-07-29] MEDS ORDERED: NEBULIZER1 MI1 (10:28)
[2016-07-29] MEDS ORDERED: NEBULIZER/ADULT1 KIT (10:28)
--- NOTE | 2016-07-29 10:36 | HHI.PR ---
Subjective Remarks The patient still wants to go home. She would like her Xanax available more frequently. Discussed with her daughter over the phone. Discussed with nursing. Objective Vitals Vital Signs Date Time Temp Pulse Resp B/P Pulse Ox O2 Delivery O2 Flow Rate FiO2 07/29/16 10:10 97 21 07/29/16 08:00 97.4 65 18 107/55 98 07/29/16 07:00 61 07/29/16 03:26 97.5 63 20 98/54 93 07/29/16 02:14 20 07/28/16 23:54 98.6 87 20 120/55 98 07/28/16 21:44 21 07/28/16 20:34 98.7 81 18 121/60 98 07/28/16 20:00 71 07/28/16 20:00 71 07/28/16 16:00 96.9 74 20 108/62 99 07/28/16 12:00 98.1 75 18 102/54 99 I/O 07/28/16 07/28/16 07/28/16 07/29/16 07/29/16 07/29/16 07:00 15:00 23:00 07:00 15:00 23:00 Intake Total 480 ml 0 ml Balance 480 ml 0 ml Intake Oral 480 ml IV Total 0 ml # Voids 4 3 0 Result Diagram: 07/29/16 0900 07/29/16 0900 Imaging Last Impressions Bone Biopsy CT 07/27/16 0758 Signed Impressions: Service Date/Time: Wednesday, July 27, 2016 11:37 - CONCLUSION: 1. Uncomplicated CT guided bone marrow aspirate. 2. Uncomplicated CT guided bone marrow biopsy. Blayne Sheets MD FACR Chest X-Ray 07/27/16 0000 Signed Impressions: Service Date/Time: Wednesday, July 27, 2016 17:01 - CONCLUSION: Persistent left lung consolidation, however improvement in pulmonary edema. Ivana Dumont MD Renal Ultrasound 07/24/16 0000 Signed Impressions: Service Date/Time: Sunday, July 24, 2016 21:08 - CONCLUSION: 1. The kidneys appear decreased in size. There is increased echogenicity seen at the right kidney. These findings can suggest medical renal disease. 2. Splenomegaly. Jose Clark MD Head CT [id number]/22/162057 Signed Impressions: Service Date/Time: Friday, July 22, 2016 21:12 - CONCLUSION: Moderate atrophy. No acute findings in the brain. 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 Air-fluid levels in both maxillary sinuses suggest acute maxillary sinusitis. Claudy Denis MD Objective Remarks GENERAL: Well-nourished, well-developed patient. SKIN: Warm and dry. HEAD: Normocephalic. EYES: No scleral icterus. No injection or drainage. NECK: Supple, trachea midline. No JVD or lymphadenopathy. CARDIOVASCULAR: Regular rate and rhythm without murmurs, gallops, or rubs. RESPIRATORY: Bilateral crackles appreciated, worse on the left. GASTROINTESTINAL: Abdomen soft, non-tender, nondistended. MUSCULOSKELETAL: No cyanosis, or edema. BACK: Nontender without obvious deformity. No CVA tenderness. NEURO: No gross deficits. PSYCH: Slightly flattened affect. Procedures Bone marrow biopsy 2/3. Medications and IVs Current Medications Medications (Trade) Dose Ordered Sig/Carlos Route Start Time Stop Time Status Last Admin (Tylenol) 650 mg Q6H PRN PO 07/22/16 23:00 07/26/16 08:27 (Zofran Inj) 4 mg Q6H PRN IV 07/22/16 23:00 (Reglan Inj) 5 mg Q6H PRN IV 07/22/16 23:00 (Colace) 100 mg BID PO 07/23/16 09:00 07/29/16 07:58 (Ambien) 5 mg HS PRN PO 07/22/16 23:00 Miscellaneous Information 1 Q361D XX 07/22/16 23:00 (NS Flush) 2 ml UNSCH PRN IV FLUSH 07/22/16 23:00 (NS Flush) 2 ml BID IV FLUSH 07/23/16 09:00 07/29/16 07:59 (Ecotrin Ec) 81 mg DAILY PO 07/23/16 09:00 07/29/16 07:59 (Symbicort 160-4.5 Inh) 2 puff Q12HR INH 07/23/16 09:00 07/29/16 07:57 (Neurontin) 100 mg TID PO 07/23/16 09:00 07/29/16 07:58 (Mucinex Er) 600 mg TID PO 07/23/16 09:00 07/29/16 07:58 (Habitrol 21 Mg Patch.24 Hr) 1 patch DAILY T-DERMAL 07/23/16 09:00 07/29/16 07:58 (Spiriva Inh) 18 mcg DAILY INH 07/23/16 09:00 07/29/16 07:57 (Detrol La) 2 mg DAILY PO 07/23/16 09:00 07/29/16 07:59 Miscellaneous Information 1 DAILY T-DERMAL 07/23/16 09:00 07/29/16 07:58 (Pill Splitter) 1 ea UNSCH PRN OTHER 07/23/16 00:45 (Roxicodone) 5 mg Q4H PRN PO 07/23/16 10:00 (Roxicodone) 10 mg Q4H PRN PO 07/23/16 10:00 07/29/16 08:12 (Miralax) 17 gm BID PO 07/23/16 10:30 07/29/16 07:59 (Senokot) 17.2 mg DAILY PO 07/23/16 10:30 07/29/16 07:58 Sodium Bicarbonate 650 mg 650 mg Q12HR PO 07/24/16 21:00 07/29/16 07:58 (Fortaz Inj/NS Inj) 100 ml @ 200 mls/hr DAILY IV 07/25/16 16:00 07/29/16 08:13 (Levaquin) 250 mg Q48H PO 07/25/16 18:00 07/27/16 18:31 (Rocaltrol) 0.25 mcg DAILY PO 07/27/16 09:00 07/29/16 07:58 (Xanax) 0.5 mg Q6H PRN PO 07/29/16 11:15 A/P Assessment and Plan Pneumonia CXR with left sided infiltrate. CXR 2/3 with persistent consolidation on the left but improving pulmonary edema.. ID consult appreciated. Sputum culture growing stenotrophomonas, urine culture growing pseudomonas. - Change Zosyn to Ceftaz per sensitivities. Renally dosed. Follow up with ID. PO Levaquin added. - oxygen and nebs as needed. Started scheduled nebs 2/3. Stable. Neutropenia The pt has a history of neutropenia for which she was followed by a material requirements worker. She received Neupogen earlier this month. The pt was found to have an ANC of 0.6. Hematology consult appreciated. Bone marrow biopsy performed 07/27. ANC 0.8 07/29. - follow CBC with diff. - further evaluation per hematology. - neutropenic precautions. - Continue antibiotics. - Follow pathology. Still pending 07/29. Lung cancer The pt is s/p treatment with surgery and radiation and is currently in remission. Has neutropenia as above. - follow up with oncology. - Oxygen and nebs as above. COPD Not in exacerbation at this time. Still smoking 6-8 cigarettes daily. - Symbicort, guaifenesin, Spiriva, DuoNeb. - Nicotine patch. - smoking cessation instruction. - Standing nebs. - ordered a new nebulizer and face mask per pt's daughter's request. Renal Failure Creatinine was found to be 4.68. She has stage 5 renal disease for which she was followed by a sharepoint web developer. She had a fistula placed about three weeks ago. Appreciate nephrology input. S/p IVFs. Creatinine stable 07/29. - follow urine output. - Nephrology follow-up. - avoid nephrotoxic agents. Hypoglycemia Likely s/t decreased PO intake. S/p D5W. Stable 07/29. - encourage PO intake. Added Nepro. - check fingersticks twice daily. Anemia Likely secondary to renal disease. - Epogen as needed. - Follow CBC and transfuse as needed. - follow up with hematology. PPx: Heparin. Discharge Planning Awaiting clinical improvement. Nirav Ortiz DO Jul 29, 2016 10:36
[2016-07-29] MEDS: ALPRAZolam 0.5 MG TAB PO PRN ×3 (11:16→23:07)
[2016-07-29 12:37] LABS: BANDS 10 % (0-6); OVALOCYTES 1+ (NORMAL); PLATELET ESTIMATE SMEAR NORMAL (NORMAL); PLATELET MORPHOLOGY NORMAL (NORMAL); POLYS (SEG NEUTROPHILS) 49 % (16-70); SCAN/DIFF FINAL DIFF MANUAL; WBC DIFF SAMPLE 100
--- NOTE | 2016-07-29 14:49 | HHI.NPPN ---
Subjective History of Present Illness 65-year-old white female with history of lung cancer, chronic kidney disease who moved to this area having some cough Additional Remarks No acute complaints Review of Systems General Constitutional: Fatigue Respiratory Lungs: Cough Objective Data Data 07/28/16 07/29/16 19:00 07:00 Intake Total 480 ml 0 ml Balance 480 ml 0 ml Intake Oral 480 ml IV Total 0 ml # Voids 3 0 Vital Signs Date Time Temp Pulse Resp B/P Pulse Ox O2 Delivery O2 Flow Rate FiO2 07/29/16 12:00 97.5 77 18 109/55 100 07/29/16 10:10 97 21 07/29/16 08:00 97.4 65 18 107/55 98 07/29/16 07:00 61 07/29/16 03:26 97.5 63 20 98/54 93 07/29/16 02:14 20 07/28/16 23:54 98.6 87 20 120/55 98 07/28/16 21:44 21 07/28/16 20:34 98.7 81 18 121/60 98 07/28/16 20:00 71 07/28/16 20:00 71 07/28/16 16:00 96.9 74 20 108/62 99 -: 07/29/16 0900 07/29/16 0900 Physical Exam General Appearance: Well Developed Neck Neck Exam: Neck Supple Pulmonary Resp Exam: Decreased Bases Cardiology CV Exam: Regular, Normal Sinus Rhythm Gastrointestinal/Abdomen GI Exam: Soft, Non-Tender, Bowel Sounds Present Integumentary Skin Exam: Clear Neurologic Neuro Exam: Alert, Awake Assessment/Plan Problem List: (1) Chronic kidney disease Plan: Creatinine 3.7 -> 3.4 -> 3.4 today. Renal function stable. Here due to low WBC, BM biopsy done There is no urgent need to start dialysis at this hospitalization. Volume status and electrolytes, creatinine stable at this point. Patient recently moved here, has a left brachiobasilic 1st stage AV fistula which was created elsewhere. She will need to be evaluated for a 2nd stage superficialization in 2-3 weeks as her medical issues further stabilize. (2) COPD (chronic obstructive pulmonary disease) Plan: Patient has been admitted and treated (3) Neutropenia Plan: Likely due to bone marrow dysfunction oncology following (4) Sepsis Plan: Patient has UTI and possible bronchitis pneumonia on Ceftazidime Problem Qualifiers (1) Chronic kidney disease: Qualified Code: N18.5 - Chronic kidney disease, stage 5 (2) Neutropenia: Qualified Code: D70.9 - Neutropenia, unspecified type (3) Sepsis: Qualified Code: A41.9 - Sepsis, due to unspecified organism Shaheed Bourgeois MD Jul 29, 2016 14:49
[2016-07-29] MEDS: LEVOFLOXACIN 250 MG TAB PO SCH (16:23)
[2016-07-30] VITALS (12 sets, daily range): BP systolic 98–128; BP diastolic 50–63; PULSE 59–86; RESP 18–20; TEMP 96.5–98; O2SAT 96–100
[2016-07-30 08:01] LABS: AUTOMATED NEUTROPHIL # 0.7 TH/MM3 (1.8-7.7); BASOPHIL % 1.7 % (0.0-2.0); EOSINOPHIL % 0.9 % (0.0-4.0); HEMATOCRIT 28.2 % (35.0-46.0); LYMPH % 29.3 % (9.0-44.0); LYMPHOCYTE # 0.5 TH/MM3 (1.0-4.8); MEAN CELL VOLUME 84.9 FL (80.0-100.0); MEAN CORPUSCULAR HEMOGLOBIN 27.9 PG (27.0-34.0); MEAN CORPUSCULAR HGB CONC 32.9 % (32.0-36.0); NEUT % 37.1 % (16.0-70.0); PLATELET COUNT 225 TH/MM3 (150-450); RED BLOOD COUNT 3.32 MIL/MM3 (4.00-5.30); RED CELL DISTRIBUTION WIDTH 13.1 % (11.6-17.2); WHITE BLOOD COUNT 1.8 TH/MM3 (4.0-11.0)
[2016-07-30 08:08] LABS: HEMO FLAGS AUTO DIFF
[2016-07-30 08:18] LABS: ALT (GPT) 12 U/L (10-53); ANION GAP 6 MEQ/L (5-15); AST (GOT) 9 U/L (15-37); BICARBONATE 27.8 MEQ/L (21.0-32.0); BLOOD UREA NITROGEN 39 MG/DL (7-18); CHLORIDE 107 MEQ/L (98-107); GLOMERULAR FILTRATION RATE 13 ML/MIN (>89); MAGNESIUM 2.2 MG/DL (1.5-2.5); POTASSIUM 5.3 MEQ/L (3.5-5.1); SODIUM (NA) 141 MEQ/L (136-145)
[2016-07-30 08:20] LABS: ALKALINE PHOSPHATASE 87 U/L (45-117); TOTAL BILIRUBIN ADULT 0.3 MG/DL (0.2-1.0)
[2016-07-30] MEDS: RESP: ALBUTEROL 2.5 MG/IPRATROPIUM 0.5 MG NEB (SCH) NEB ×2 (08:33→15:46)
[2016-07-30 08:55] LABS: BANDS 1 % (0-6); BASOPHILS 1 % (0-2); EOSINOPHILS 1 % (0-4); NEUTROPHIL # MANUAL DIFF 0.7 TH/MM3 (1.8-7.7); PLATELET ESTIMATE SMEAR NORMAL (NORMAL); PLATELET MORPHOLOGY NORMAL (NORMAL); POLYS (SEG NEUTROPHILS) 36 % (16-70); SCAN/DIFF FINAL DIFF MANUAL; WBC DIFF SAMPLE 100
[2016-07-30] MEDS: BUDESONIDE-FORMOTEROL 160/4.5 MCG INHALER INH SCH ×2 (09:59→21:49)
[2016-07-30] MEDS: CEFTAZIDIME IV SCH (10:00)
[2016-07-30] MEDS: TIOTROPIUM BROMIDE 18 MCG INH INH SCH (10:00)
[2016-07-30] MEDS: DOCUSATE SODIUM 100 MG CAP PO SCH ×2 (10:00→21:48)
[2016-07-30] MEDS: SODIUM CHLORIDE 0.9% FLUSH 5 ML FLUSH IV FLUSH SCH ×2 (10:00→21:49)
[2016-07-30] MEDS: SODIUM CHLORIDE 0.9% IV SCH (10:00)
[2016-07-30] MEDS: ASPIRIN EC 81 MG TABEC PO SCH (10:01)
[2016-07-30] MEDS: TOLTERODINE TARTRATE 2 MG CAP LA PO SCH (10:01)
[2016-07-30] MEDS: CALCITRIOL 0.25 MCG CAP PO SCH (10:02)
[2016-07-30] MEDS: NICOTINE 21 MG/24 HR PATCH T-DERMAL SCH (10:02)
[2016-07-30] MEDS: SODIUM BICARBONATE 650 MG TAB PO SCH ×2 (10:02→21:49)
[2016-07-30] MEDS: guaiFENesin E.R. 600 MG TAB PO SCH ×3 (10:02→17:49)
[2016-07-30] MEDS: POLYETHYLENE GLYCOL 17 GM PKG PO SCH ×2 (10:02→21:48)
[2016-07-30] MEDS: REMOVE OLD PATCH T-DERMAL SCH (10:02)
[2016-07-30] MEDS: SENNOSIDES 8.6 MG TAB PO SCH (10:02)
[2016-07-30] MEDS: GABAPENTIN 100 MG CAP PO SCH ×3 (10:02→17:49)
[2016-07-30] MEDS: ALPRAZolam 0.5 MG TAB PO PRN ×2 (11:22→23:22)
--- NOTE | 2016-07-30 12:30 | PD.ONC.PN ---
Subjective Subjective Remarks Afebrile overnight. Patient resting comfortably in nad. Objective Data Date Time Temp Pulse Resp B/P Pulse Ox O2 Delivery O2 Flow Rate FiO2 07/30/16 08:33 100 Nasal Cannula 2.00 07/30/16 08:00 97.3 86 18 115/56 100 07/30/16 05:12 97.6 61 20 120/58 99 07/30/16 00:28 97.3 68 20 128/58 97 07/29/16 20:38 98.1 69 20 121/60 100 07/29/16 19:00 71 07/29/16 19:00 71 07/29/16 16:00 98.3 72 18 103/50 96 Result Diagram: 07/30/16 0734 07/30/16 0734 Laboratory Results Laboratory Tests Test 07/30/16 07:34 White Blood Count 1.8 TH/MM3 Red Blood Count 3.32 MIL/MM3 Hemoglobin 9.3 GM/DL Hematocrit 28.2 % Mean Corpuscular Volume 84.9 FL Mean Corpuscular Hemoglobin 27.9 PG Mean Corpuscular Hemoglobin 32.9 % Concent Red Cell Distribution Width 13.1 % Platelet Count 225 TH/MM3 Mean Platelet Volume 7.0 FL Neutrophils (%) (Auto) 37.1 % Lymphocytes (%) (Auto) 29.3 % Monocytes (%) (Auto) 31.0 % Eosinophils (%) (Auto) 0.9 % Basophils (%) (Auto) 1.7 % Neutrophils # (Auto) 0.7 TH/MM3 Lymphocytes # (Auto) 0.5 TH/MM3 Monocytes # (Auto) 0.5 TH/MM3 Eosinophils # (Auto) 0.0 TH/MM3 Basophils # (Auto) 0.0 TH/MM3 CBC Comment AUTO DIFF Differential Total Cells 100 Counted Neutrophils % (Manual) 36 % Band Neutrophils % 1 % Lymphocytes % 27 % Monocytes % 34 % Eosinophils % 1 % Basophils % 1 % Neutrophils # (Manual) 0.7 TH/MM3 Differential Comment FINAL DIFF MANUAL Platelet Estimate NORMAL Platelet Morphology Comment NORMAL Red Cell Morphology Comment NORMAL Sodium Level 141 MEQ/L Potassium Level 5.3 MEQ/L Chloride Level 107 MEQ/L Carbon Dioxide Level 27.8 MEQ/L Anion Gap 6 MEQ/L Blood Urea Nitrogen 39 MG/DL Creatinine 3.61 MG/DL Estimat Glomerular Filtration 13 ML/MIN Rate Random Glucose 71 MG/DL Calcium Level 8.8 MG/DL Phosphorus Level 3.2 MG/DL Magnesium Level 2.2 MG/DL Total Bilirubin 0.3 MG/DL Aspartate Amino Transf 9 U/L (AST/SGOT) Alanine Aminotransferase 12 U/L (ALT/SGPT) Alkaline Phosphatase 87 U/L Total Protein 6.9 GM/DL Albumin 2.8 GM/DL Administered Medications Medications (Trade) Dose Ordered Sig/Carlos Route PRN Reason Start Time Stop Time Status Last Admin Dose Admin Acetaminophen (Tylenol) 650 mg Q6H PRN PO PAIN 1-10 AND/OR FEVER >101F 07/22/16 23:00 07/26/16 08:27 Docusate Sodium (Colace) 100 mg BID PO 07/23/16 09:00 07/30/16 10:00 IV Flush (NS Flush) 2 ml BID IV FLUSH 07/23/16 09:00 07/30/16 10:00 Aspirin (Ecotrin Ec) 81 mg DAILY PO 07/23/16 09:00 07/30/16 10:01 Budesonide/ Formoterol Fumarate (Symbicort 160-4.5 Inh) 2 puff Q12HR INH 07/23/16 09:00 07/30/16 09:59 Gabapentin (Neurontin) 100 mg TID PO 07/23/16 09:00 07/30/16 10:02 Guaifenesin (Mucinex Er) 600 mg TID PO 07/23/16 09:00 07/30/16 10:02 Nicotine (Habitrol 21 Mg Patch.24 Hr) 1 patch DAILY T-DERMAL 07/23/16 09:00 07/30/16 10:02 Tiotropium Amity (Spiriva Inh) 18 mcg DAILY INH 07/23/16 09:00 07/30/16 10:00 Tolterodine Tartrate (Detrol La) 2 mg DAILY PO 07/23/16 09:00 07/30/16 10:01 Miscellaneous Information 1 DAILY T-DERMAL 07/23/16 09:00 07/30/16 10:02 Oxycodone HCl (Roxicodone) 10 mg Q4H PRN PO pain 6-10 07/23/16 10:00 07/30/16 10:02 Polyethylene Glycol (Miralax) 17 gm BID PO 07/23/16 10:30 07/30/16 10:02 Sennosides (Senokot) 17.2 mg DAILY PO 07/23/16 10:30 07/30/16 10:02 Sodium Bicarbonate 650 mg 650 mg Q12HR PO 07/24/16 21:00 07/30/16 10:02 Ceftazidime/ Sodium Chloride (Fortaz Inj/NS Inj) 100 ml @ 200 mls/hr DAILY IV 07/25/16 16:00 07/30/16 10:00 Levofloxacin (Levaquin) 250 mg Q48H PO 07/25/16 18:00 07/29/16 16:23 Calcitriol (Rocaltrol) 0.25 mcg DAILY PO 07/27/16 09:00 07/30/16 10:02 Alprazolam (Xanax) 0.5 mg Q6H PRN PO ANXIETY 07/29/16 11:15 07/30/16 11:22 Objective Remarks GENERAL: Pleasant elderly female, lying in bed in NAD SKIN: Warm and dry. HEAD: Normocephalic. EYES: No injection or drainage. NECK: Supple, trachea midline. CARDIOVASCULAR: Regular rate and rhythm RESPIRATORY: diminished at bases. occasional rhonchi. GASTROINTESTINAL: Abdomen soft, non-tender, nondistended. EXTREMITIES: No cyanosis NEUROLOGICAL: awake and alert, normal speech. moving all extremities. Assessment/Plan Problem List: (1) Neutropenia Status: Acute Plan: --etiology unknown --records requested from Dr. Peters --has apparently been happening since 03/2016. was receiving periodic Neupogen shots--last shot reported 06/26/16 just before patient moved to [place]. --Followed by Dr. Eric Peters of [facility] (main # ) (medical records: [phone], fax:[phone]) (2) Normocytic anemia Status: Acute Plan: --folic acid and vitamin B12 WNL --Likely secondary to renal insufficiency--patient would be a good candidate for EPO --Serum iron studies more consistent with anemia of chronic disease--elevated ferritin, low TIBC, normal saturation. --stool for occult blood ordered--waiting on patient to have BM (3) Squamous cell carcinoma Status: Acute Plan: --diagnosis of squamous cell carcinoma which was diagnosed three years ago while she was still residing in [place]. --underwent surgical resection followed by radiation. Assessment 65y/o female admitted with hypotension, dehydration, acute on chronic renal failure. Hematology/Oncology consulted for leukopenia. Plan 1. await bone marrow pathology 2. supportive care 3. continue abx 4. records obtained from Dr. Munguia's office. will place in chart. Problem Qualifiers (1) Neutropenia: Qualified Code: D70.9 - Neutropenia, unspecified type Nia Fuentes Jul 30, 2016 12:30
--- NOTE | 2016-07-30 16:09 | HHI.IDPN ---
Note Infectious Disease Note Patient feels better. Had Bone marrow biopsy . Results pending. Alert. No SOB, THOMAS, chest discomfort. On nasal O2. No chills. Afebrile. Still neutropenic. Presented with altered mental status, weakness, malaise, headache, back pain, chest pain. cough, abdominal pain and intermittent nausea and vomiting. Found to be neutropenic. PAST MEDICAL HISTORY 1. Non-small cell lung cancer. 2. Chronic kidney disease. 3. Pancytopenia. 4. Hypertension. 5. Left forearm AV fistula. 6. Cholecystectomy. 7. Tubal ligation. 8. Aneurysm. 9. Diabetes mellitus. ALLERGIES 1. CIPRO. ( patient notes that she had itching but no rash with cipro and that she tolerated Levaquin before) 2. CODEINE. 3. MORPHINE. ANTIBIOTICS Ceftazidime. Levaquin. OBJECTIVE: Vital Signs Date Time Temp Pulse Resp B/P Pulse Ox O2 Delivery O2 Flow Rate FiO2 07/30/16 15:46 97 21 07/30/16 12:00 98.0 74 18 110/53 98 07/30/16 08:33 100 Nasal Cannula 2.00 07/30/16 08:00 97.3 86 18 115/56 100 07/30/16 05:12 97.6 61 20 120/58 99 07/30/16 00:28 97.3 68 20 128/58 97 07/29/16 20:38 98.1 69 20 121/60 100 07/29/16 19:00 71 07/29/16 19:00 71 07/29/16 07/29/16 07/30/16 15:00 23:00 07:00 Intake Total 960 ml Balance 960 ml Intake Oral 960 ml # Voids 2 2 1 # Bowel Movements 0 Laboratory Tests Test 07/29/16 07/30/16 09:00 07:34 White Blood Count 1.7 TH/MM3 1.8 TH/MM3 Red Blood Count 3.25 MIL/MM3 3.32 MIL/MM3 Hemoglobin 9.0 GM/DL 9.3 GM/DL Hematocrit 27.5 % 28.2 % Mean Corpuscular Volume 84.7 FL 84.9 FL Mean Corpuscular Hemoglobin 27.7 PG 27.9 PG Mean Corpuscular Hemoglobin 32.7 % 32.9 % Concent Red Cell Distribution Width 13.2 % 13.1 % Platelet Count 211 TH/MM3 225 TH/MM3 Mean Platelet Volume 7.2 FL 7.0 FL Neutrophils (%) (Auto) 46.6 % 37.1 % Lymphocytes (%) (Auto) 23.4 % 29.3 % Monocytes (%) (Auto) 27.5 % 31.0 % Eosinophils (%) (Auto) 0.4 % 0.9 % Basophils (%) (Auto) 2.1 % 1.7 % Neutrophils # (Auto) 0.8 TH/MM3 0.7 TH/MM3 Lymphocytes # (Auto) 0.4 TH/MM3 0.5 TH/MM3 Monocytes # (Auto) 0.5 TH/MM3 0.5 TH/MM3 Eosinophils # (Auto) 0.0 TH/MM3 0.0 TH/MM3 Basophils # (Auto) 0.0 TH/MM3 0.0 TH/MM3 CBC Comment AUTO DIFF AUTO DIFF Differential Total Cells 100 100 Counted Neutrophils % (Manual) 49 % 36 % Band Neutrophils % 10 % 1 % Lymphocytes % 21 % 27 % Monocytes % 20 % 34 % Neutrophils # (Manual) 1.0 TH/MM3 0.7 TH/MM3 Differential Comment FINAL DIFF FINAL DIFF MANUAL MANUAL Platelet Estimate NORMAL NORMAL Platelet Morphology Comment NORMAL NORMAL Ovalocytes 1+ Eosinophils % 1 % Basophils % 1 % Red Cell Morphology Comment NORMAL Laboratory Tests Test 07/29/16 07/30/16 09:00 07:34 Sodium Level 142 MEQ/L 141 MEQ/L Potassium Level 4.5 MEQ/L 5.3 MEQ/L Chloride Level 108 MEQ/L 107 MEQ/L Carbon Dioxide Level 25.5 MEQ/L 27.8 MEQ/L Anion Gap 9 MEQ/L 6 MEQ/L Blood Urea Nitrogen 38 MG/DL 39 MG/DL Creatinine 3.49 MG/DL 3.61 MG/DL Estimat Glomerular Filtration 13 ML/MIN 13 ML/MIN Rate Random Glucose 99 MG/DL 71 MG/DL Calcium Level 8.7 MG/DL 8.8 MG/DL Magnesium Level 2.1 MG/DL 2.2 MG/DL Phosphorus Level 3.2 MG/DL Total Bilirubin 0.3 MG/DL Aspartate Amino Transf 9 U/L (AST/SGOT) Alanine Aminotransferase 12 U/L (ALT/SGPT) Alkaline Phosphatase 87 U/L Total Protein 6.9 GM/DL Albumin 2.8 GM/DL Microbiology Date/Time Procedure Status Source Growth 07/22/16 22:00 Aerobic Blood Culture - Preliminary Resulted Blood Peripheral NO GROWTH IN 3 DAYS 07/22/16 22:00 Anaerobic Blood Culture - Preliminary Resulted Blood Peripheral NO GROWTH IN 3 DAYS 07/22/16 22:10 Aerobic Blood Culture - Preliminary Resulted Blood Peripheral NO GROWTH IN 3 DAYS 07/22/16 22:10 Anaerobic Blood Culture - Preliminary Resulted Blood Peripheral NO GROWTH IN 3 DAYS 07/22/16 22:20 Urine Culture - Final Complete Urine Clean Catch Pseudomonas Aeruginosa 07/23/16 00:20 Gram Stain - Final Complete Sputum Expectorated Sputum 07/23/16 00:20 Sputum Culture - Final Complete Stenotrophomonas Maltophilia PHYSICAL EXAMINATION GENERAL: No acute distress. HEENT: No icterus. Oropharynx no visible lesions. Moist mucosa. NECK: Supple without adenopathy or swelling. Trachea midline. LUNGS: Clearer breath sounds. HEART: Regular S1 and S2. Slight systolic murmur. ABDOMEN: Bowel sounds present. Soft. No tenderness appreciated. EXTREMITIES: The left upper extremity has an AV fistula which appears intact. No edema. No lesions. NEUROLOGIC: Nonfocal. SKIN: No rash. PSYCH: Anxious. IMPRESSION 1. Sepsis. 2. Persistent neutropenia. ? etiology. Bone Marrow biopsy result pending. Trazodone d/jonas. Patient has been on it for the past 5 years for sleep. 3. Abnormal chest x-ray indicating pneumonia. Stenotrophomonas. 4. Urinary tract infection. Pseudomonas. 5. Acute kidney disease on chronic kidney disease. RECOMMENDATIONS 1. Continue Ceftazidime. 2. Continue Levaquin. 3. Repeat CXR in Am. 4. Repeat urine culture. 5. Monitor counts and BM result. Kameron Santso MD Jul 30, 2016 16:09
--- NOTE | 2016-07-30 17:24 | HHI.PR ---
Subjective Remarks Patient in bed, says she feels much better and she wants to go home. Family also at bedside. Per family she is forgetful at times. Patient says she doesn't have any fever but she has chills at times. Says she is coughing less and sputum is clearing up. No blood in it. No chest pain, shortness of breath, nausea, vomiting, diarrhea or constipation. She also complains of insomnia says she cannot sleep at night and she doesn't want Ambien. Wants to try temazepam. Objective Vitals Vital Signs Date Time Temp Pulse Resp B/P Pulse Ox O2 Delivery O2 Flow Rate FiO2 07/30/16 16:00 96.5 77 18 108/53 96 07/30/16 15:46 97 21 07/30/16 12:00 98.0 74 18 110/53 98 07/30/16 08:33 100 Nasal Cannula 2.00 07/30/16 08:00 97.3 86 18 115/56 100 07/30/16 05:12 97.6 61 20 120/58 99 07/30/16 00:28 97.3 68 20 128/58 97 07/29/16 20:38 98.1 69 20 121/60 100 07/29/16 19:00 71 07/29/16 19:00 71 I/O 07/29/16 07/29/16 07/29/16 07/30/16 07/30/16 07/30/16 07:00 15:00 23:00 07:00 15:00 23:00 Intake Total 0 ml 960 ml Balance 0 ml 960 ml Intake Oral 960 ml IV Total 0 ml # Voids 2 2 1 3 # Bowel Movements 0 0 Result Diagram: 07/30/16 0734 07/30/16 0734 Imaging Last Impressions Bone Biopsy CT 07/27/16 0758 Signed Impressions: Service Date/Time: Wednesday, July 27, 2016 11:37 - CONCLUSION: 1. Uncomplicated CT guided bone marrow aspirate. 2. Uncomplicated CT guided bone marrow biopsy. Blayne Sheets MD FACR Chest X-Ray 07/27/16 0000 Signed Impressions: Service Date/Time: Wednesday, July 27, 2016 17:01 - CONCLUSION: Persistent left lung consolidation, however improvement in pulmonary edema. Ivana Dumont MD Renal Ultrasound 07/24/16 0000 Signed Impressions: Service Date/Time: Sunday, July 24, 2016 21:08 - CONCLUSION: 1. The kidneys appear decreased in size. There is increased echogenicity seen at the right kidney. These findings can suggest medical renal disease. 2. Splenomegaly. Jose Clark MD Head CT 07/22/162057 Signed Impressions: Service Date/Time: Friday, July 22, 2016 21:12 - CONCLUSION: Moderate atrophy. No acute findings in the brain. 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 Air-fluid levels in both maxillary sinuses suggest acute maxillary sinusitis. Claudy Denis MD Objective Remarks GENERAL: Well-nourished, well-developed patient. SKIN: Warm and dry. HEAD: Normocephalic. EYES: No scleral icterus. No injection or drainage. NECK: Supple, trachea midline. No JVD or lymphadenopathy. CARDIOVASCULAR: Regular rate and rhythm without murmurs, gallops, or rubs. RESPIRATORY: Bilateral crackles appreciated, worse on the left. GASTROINTESTINAL: Abdomen soft, non-tender, nondistended. MUSCULOSKELETAL: No cyanosis, or edema. BACK: Nontender without obvious deformity. No CVA tenderness. NEURO: No gross deficits. PSYCH: Slightly flattened affect. Procedures Bone marrow biopsy 07/27. A/P Assessment and Plan Pneumonia CXR with left sided infiltrate. CXR 07/27 with persistent consolidation on the left but improving pulmonary edema.. ID consult appreciated. Sputum culture growing stenotrophomonas, urine culture growing pseudomonas. - Change Zosyn to Ceftaz per sensitivities. Renally dosed. Follow up with ID. PO Levaquin added. - oxygen and nebs as needed. Started scheduled nebs 07/27. Stable. 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 She received Neupogen earlier this month. The pt was found to have an ANC of 0.6. Hematology consult appreciated. Bone marrow biopsy performed 07/27. ANC 0.8 07/29. - follow CBC with diff. - further evaluation per hematology. - neutropenic precautions. - Continue antibiotics. - Follow pathology. Still pending 07/29. Lung cancer The pt is s/p treatment with surgery and radiation and is currently in remission. Has neutropenia as above. - follow up with oncology. - Oxygen and nebs as above. COPD Not in exacerbation at this time. Still smoking 6-8 cigarettes daily. - Symbicort, guaifenesin, Spiriva, DuoNeb. - Nicotine patch. - smoking cessation instruction. - Standing nebs. - ordered a new nebulizer and face mask per pt's daughter's request. Renal Failure Creatinine was found to be 4.68. She has stage 5 renal disease for which she was followed by a imcu specialist. She had a fistula placed about three weeks ago. Appreciate nephrology input. S/p IVFs. Creatinine stable 07/29. - follow urine output. - Nephrology follow-up. - avoid nephrotoxic agents. Hypoglycemia Likely s/t decreased PO intake. S/p D5W. Stable 07/29. - encourage PO intake. Added Nepro. - check fingersticks twice daily. Anemia Likely secondary to renal disease. - Epogen as needed. - Follow CBC and transfuse as needed. - follow up with hematology. Insomnia. Add temazepam. JAVIER robbins PPx: Heparin. Discharge Planning Awaiting clinical improvement. Discussed with the patient, nurse, family at bedside, hem/onc service Ondina Godwin MD Jul 30, 2016 17:24
--- NOTE | 2016-07-30 19:16 | HHI.NPPN ---
Subjective History of Present Illness 65-year-old white female with history of lung cancer, chronic kidney disease who moved to this area having some cough Additional Remarks Patient is alert, mild SOB, no dizziness. Review of Systems General Constitutional: Fatigue Respiratory Lungs: Cough Objective Data Data 07/29/16 07/30/16 19:00 07:00 Intake Total 960 ml Balance 960 ml Intake Oral 960 ml # Voids 2 3 # Bowel Movements 0 Vital Signs Date Time Temp Pulse Resp B/P Pulse Ox O2 Delivery O2 Flow Rate FiO2 07/30/16 16:00 96.5 77 18 108/53 96 07/30/16 15:46 97 21 07/30/16 12:00 98.0 74 18 110/53 98 07/30/16 09:00 59 07/30/16 09:00 59 07/30/16 08:33 100 Nasal Cannula 2.00 07/30/16 08:00 97.3 86 18 115/56 100 07/30/16 05:12 97.6 61 20 120/58 99 07/30/16 00:28 97.3 68 20 128/58 97 07/29/16 20:38 98.1 69 20 121/60 100 -: 07/30/16 0734 07/30/16 0734 Microbiology 07/30/16 Urine Culture, Received Pending Physical Exam General Appearance: No Acute Distress, Comfortable Neck Neck Exam: Neck Supple Pulmonary Resp Exam: Decreased Bases Cardiology CV Exam: Regular, Normal Sinus Rhythm Gastrointestinal/Abdomen GI Exam: Soft, Non-Tender, Bowel Sounds Present Integumentary Skin Exam: Clear Extremeties Extremities Exam: Trace Edema Neurologic Neuro Exam: Alert, Awake Psychiatric Psych Exam: Appropriate Responses Assessment/Plan Problem List: (1) Chronic kidney disease Plan: Creatinine 3.7 -> 3.4 -> 3.4 today. Renal function stable. Here due to low WBC, BM biopsy done There is no urgent need to start dialysis at this hospitalization. Volume status and electrolytes, creatinine stable at this point. Patient recently moved here, has a left brachiobasilic 1st stage AV fistula which was created elsewhere. She will need to be evaluated for a 2nd stage superficialization in 2-3 weeks as her medical issues further stabilize. Creatinine almost same. Follow BMP and K level. (2) COPD (chronic obstructive pulmonary disease) Plan: Patient has been admitted and treated (3) Neutropenia Plan: Likely due to bone marrow dysfunction oncology following (4) Sepsis Plan: Patient has UTI and possible bronchitis pneumonia on Ceftazidime Problem Qualifiers (1) Chronic kidney disease: Qualified Code: N18.5 - Chronic kidney disease, stage 5 (2) Neutropenia: Qualified Code: D70.9 - Neutropenia, unspecified type (3) Sepsis: Qualified Code: A41.9 - Sepsis, due to unspecified organism Reji Lezama MD Jul 30, 2016 19:16
[2016-07-30] MEDS ORDERED: TEMAZEPAM 15 MG CAP PO PRN (21:00)
[2016-07-31] VITALS (7 sets, daily range): BP systolic 84–120; BP diastolic 47–85; PULSE 62–81; RESP 16–18; TEMP 97.2–98.2; O2SAT 96–100
--- NOTE | 2016-07-31 06:39 | RADRPT ---
EXAM DATE/TIME: 07/31/2016 05:33 [facility] COMPARISON: CHEST SINGLE AP, July 20, 2016, 19:40. CHEST SINGLE AP, July 27, 2016, 17:01. INDICATIONS : Short of breath, cough, evaluate pneumonia MEDICAL HISTORY : Chronic obstructive pulmonary disease. Emphysema. SURGICAL HISTORY : None. ENCOUNTER: Subsequent ACUITY: 1 week PAIN SCORE: 0/10 LOCATION: Bilateral chest FINDINGS: Right lung is clear. Persistent abnormal left lower lobe though parenchymal opacity remains. There is volume loss of the left hemithorax. Consider CT chest for further evaluation. Osseous structures are intact. Heart size normal. CONCLUSION: Abnormal volume loss left hemithorax with parenchymal opacity as above. CT chest with contrast may be helpful for further assessment. Kai El MD on July 31, 2016 at 6:36 Board Certified Radiologist. This report was verified electronically.
[2016-07-31 07:06] LABS: BASOPHIL % 1.9 % (0.0-2.0); EOSINOPHIL % 0.5 % (0.0-4.0); HEMATOCRIT 28.3 % (35.0-46.0); HEMO FLAGS DIFF FINAL; LYMPH % 27.1 % (9.0-44.0); LYMPHOCYTE # 0.6 TH/MM3 (1.0-4.8); MEAN CELL VOLUME 85.5 FL (80.0-100.0); MEAN CORPUSCULAR HEMOGLOBIN 27.9 PG (27.0-34.0); MEAN CORPUSCULAR HGB CONC 32.6 % (32.0-36.0); MONO % 25.8 % (0.0-8.0); NEUT % 44.7 % (16.0-70.0); PLATELET COUNT 225 TH/MM3 (150-450); RED BLOOD COUNT 3.31 MIL/MM3 (4.00-5.30); RED CELL DISTRIBUTION WIDTH 13.4 % (11.6-17.2); WHITE BLOOD COUNT 2.1 TH/MM3 (4.0-11.0)
[2016-07-31] MEDS: RESP: ALBUTEROL 2.5 MG/IPRATROPIUM 0.5 MG NEB (SCH) NEB ×2 (08:06→15:11)
[2016-07-31] MEDS: CEFTAZIDIME IV SCH (09:23)
[2016-07-31] MEDS: SODIUM CHLORIDE 0.9% IV SCH (09:23)
[2016-07-31] MEDS: POLYETHYLENE GLYCOL 17 GM PKG PO SCH ×2 (09:24→21:20)
[2016-07-31] MEDS: SENNOSIDES 8.6 MG TAB PO SCH (09:24)
[2016-07-31] MEDS: CALCITRIOL 0.25 MCG CAP PO SCH (09:25)
[2016-07-31] MEDS: GABAPENTIN 100 MG CAP PO SCH ×3 (09:25→17:47)
[2016-07-31] MEDS: guaiFENesin E.R. 600 MG TAB PO SCH ×3 (09:25→17:47)
[2016-07-31] MEDS: TOLTERODINE TARTRATE 2 MG CAP LA PO SCH (09:25)
[2016-07-31] MEDS: DOCUSATE SODIUM 100 MG CAP PO SCH ×2 (09:26→21:19)
[2016-07-31] MEDS: SODIUM BICARBONATE 650 MG TAB PO SCH ×2 (09:26→21:19)
[2016-07-31] MEDS: ASPIRIN EC 81 MG TABEC PO SCH (09:26)
[2016-07-31] MEDS: REMOVE OLD PATCH T-DERMAL SCH (09:27)
[2016-07-31] MEDS: TIOTROPIUM BROMIDE 18 MCG INH INH SCH (09:27)
[2016-07-31] MEDS: SODIUM CHLORIDE 0.9% FLUSH 5 ML FLUSH IV FLUSH SCH ×2 (09:27→21:21)
[2016-07-31] MEDS: BUDESONIDE-FORMOTEROL 160/4.5 MCG INHALER INH SCH ×2 (09:27→21:21)
[2016-07-31] MEDS: NICOTINE 21 MG/24 HR PATCH T-DERMAL SCH (10:31)
[2016-07-31] MEDS: ALPRAZolam 0.5 MG TAB PO PRN ×2 (12:17→17:47)
--- NOTE | 2016-07-31 16:32 | HHI.PR ---
Subjective Remarks Was seen professor of exercise science. Patient says she is coughing less. Chills overnight. Says she was sleeping well last night. No nausea, vomiting, diarrhea or constipation. Objective Vitals Vital Signs Date Time Temp Pulse Resp B/P Pulse Ox O2 Delivery O2 Flow Rate FiO2 07/31/16 12:00 97.7 69 16 108/52 96 07/31/16 08:30 96 21 07/31/16 08:00 97.2 62 16 100/53 98 07/31/16 04:00 98.2 76 18 120/85 98 07/30/16 22:14 99 Nasal Cannula 2.00 07/30/16 21:00 117/63 07/30/16 20:02 74 07/30/16 19:30 97.9 69 18 98/50 99 I/O 07/30/16 07/30/16 07/30/16 07/31/16 07/31/16 07/31/16 07:00 15:00 23:00 07:00 15:00 23:00 Intake Total 0 ml 0 ml Balance 0 ml 0 ml IV Total 0 ml 0 ml # Voids 1 3 5 # Bowel Movements 0 4 Result Diagram: 07/31/16 0555 07/30/16 0734 Objective Remarks GENERAL: Well-nourished, well-developed patient. SKIN: Warm and dry. HEAD: Normocephalic. EYES: No scleral icterus. No injection or drainage. NECK: Supple, trachea midline. No JVD or lymphadenopathy. CARDIOVASCULAR: Regular rate and rhythm without murmurs, gallops, or rubs. RESPIRATORY: Bilateral crackles appreciated, worse on the left. GASTROINTESTINAL: Abdomen soft, non-tender, nondistended. MUSCULOSKELETAL: No cyanosis, or edema. BACK: Nontender without obvious deformity. No CVA tenderness. NEURO: No gross deficits. PSYCH: Slightly flattened affect. Procedures Bone marrow biopsy 2/3. A/P Assessment and Plan Pneumonia CXR with left sided infiltrate. CXR 2/3 with persistent consolidation on the left but improving pulmonary edema.. ID consult appreciated. Sputum culture growing stenotrophomonas, urine culture growing pseudomonas. - Change Zosyn to Ceftaz per sensitivities. Renally dosed. Follow up with ID. PO Levaquin added. - oxygen and nebs as needed. Started scheduled nebs 2/3. Stable. Neutropenia The pt has a history of neutropenia for which she was followed by a gum puller. She received Neupogen earlier this month. The pt was found to have an ANC of 0.6. Hematology consult appreciated. Bone marrow biopsy performed 07/27. ANC 0.8 07/29. - follow CBC with diff. - further evaluation per hematology. - neutropenic precautions. - Continue antibiotics. - Follow pathology. Still pending 07/29. Lung cancer The pt is s/p treatment with surgery and radiation and is currently in remission. Has neutropenia as above. - follow up with oncology. - Oxygen and nebs as above. COPD Not in exacerbation at this time. Still smoking 6-8 cigarettes daily. - Symbicort, guaifenesin, Spiriva, DuoNeb. - Nicotine patch. - smoking cessation instruction. - Standing nebs. - ordered a new nebulizer and face mask per pt's daughter's request. Renal Failure Creatinine was found to be 4.68. She has stage 5 renal disease for which she was followed by a wet finisher. She had a fistula placed about three weeks ago. Appreciate nephrology input. S/p IVFs. Creatinine stable 07/29. - follow urine output. - Nephrology follow-up. - avoid nephrotoxic agents. Hypoglycemia Likely s/t decreased PO intake. S/p D5W. Stable 07/29. - encourage PO intake. Added Nepro. - check fingersticks twice daily. Anemia Likely secondary to renal disease. - Epogen as needed. - Follow CBC and transfuse as needed. - follow up with hematology. Insomnia. Cont temazepam as need at night for sleep. JAVIER robbins PPx: Heparin. Discharge Planning Awaiting clinical improvement. Discussed with the patient, nurse Ondina Godwin MD Jul 31, 2016 16:32
--- NOTE | 2016-07-31 16:49 | HHI.NPPN ---
Subjective History of Present Illness 65-year-old white female with history of lung cancer, chronic kidney disease who moved to this area having some cough Additional Remarks Patient is alert, mild SOB, with nasal cannula, was feeling dizzy now better. Review of Systems General Constitutional: Fatigue Respiratory Lungs: Cough Objective Data Data 07/30/16 07/31/16 19:00 07:00 Intake Total 0 ml Balance 0 ml IV Total 0 ml # Voids 3 5 # Bowel Movements 0 4 Vital Signs Date Time Temp Pulse Resp B/P Pulse Ox O2 Delivery O2 Flow Rate FiO2 07/31/16 12:00 97.7 69 16 108/52 96 07/31/16 08:30 96 21 07/31/16 08:00 97.2 62 16 100/53 98 07/31/16 04:00 98.2 76 18 120/85 98 07/30/16 22:14 99 Nasal Cannula 2.00 07/30/16 21:00 117/63 07/30/16 20:02 74 07/30/16 19:30 97.9 69 18 98/50 99 -: 07/31/16 0555 07/30/16 0734 Physical Exam General Appearance: No Acute Distress, Comfortable Neck Neck Exam: Neck Supple Pulmonary Resp Exam: Decreased Bases Cardiology CV Exam: Regular, Normal Sinus Rhythm Gastrointestinal/Abdomen GI Exam: Soft, Non-Tender, Bowel Sounds Present Integumentary Skin Exam: Clear Extremeties Extremities Exam: Trace Edema Neurologic Neuro Exam: Alert, Awake Psychiatric Psych Exam: Appropriate Responses Assessment/Plan Problem List: (1) Chronic kidney disease Plan: Creatinine 3.7 -> 3.4 -> 3.4 today. Renal function stable. Here due to low WBC, BM biopsy done There is no urgent need to start dialysis at this hospitalization. Volume status and electrolytes, creatinine stable at this point. Patient recently moved here, has a left brachiobasilic 1st stage AV fistula which was created elsewhere. She will need to be evaluated for a 2nd stage superficialization in 2-3 weeks as her medical issues further stabilize. Now new BMP. WBC is 2.1. Follow BMP in AM. (2) COPD (chronic obstructive pulmonary disease) Plan: Patient has been admitted and treated (3) Neutropenia Plan: Likely due to bone marrow dysfunction oncology following (4) Sepsis Plan: Patient has UTI and possible bronchitis pneumonia on Ceftazidime Problem Qualifiers (1) Chronic kidney disease: Qualified Code: N18.5 - Chronic kidney disease, stage 5 (2) Neutropenia: Qualified Code: D70.9 - Neutropenia, unspecified type (3) Sepsis: Qualified Code: A41.9 - Sepsis, due to unspecified organism Reji Lezama MD Jul 31, 2016 16:49
[2016-07-31] MEDS: LEVOFLOXACIN 250 MG TAB PO SCH (17:47)
[2016-08-01] VITALS (7 sets, daily range): BP systolic 98–116; BP diastolic 49–74; PULSE 51–75; RESP 18; TEMP 97.2–98.3; O2SAT 96–99
[2016-08-01] MEDS: ALPRAZolam 0.5 MG TAB PO PRN ×2 (00:51→12:45)
[2016-08-01] MEDS: SODIUM CHLORIDE 0.9% IV SCH (08:14)
[2016-08-01] MEDS: CEFTAZIDIME IV SCH (08:14)
[2016-08-01] MEDS: BUDESONIDE-FORMOTEROL 160/4.5 MCG INHALER INH SCH (08:15)
[2016-08-01] MEDS: ASPIRIN EC 81 MG TABEC PO SCH (08:15)
[2016-08-01] MEDS: TOLTERODINE TARTRATE 2 MG CAP LA PO SCH (08:16)
[2016-08-01] MEDS: guaiFENesin E.R. 600 MG TAB PO SCH ×2 (08:16→12:45)
[2016-08-01] MEDS: CALCITRIOL 0.25 MCG CAP PO SCH (08:16)
[2016-08-01] MEDS: SODIUM CHLORIDE 0.9% FLUSH 5 ML FLUSH IV FLUSH SCH (08:16)
[2016-08-01] MEDS: NICOTINE 21 MG/24 HR PATCH T-DERMAL SCH (08:16)
[2016-08-01] MEDS: SODIUM BICARBONATE 650 MG TAB PO SCH (08:16)
[2016-08-01] MEDS: GABAPENTIN 100 MG CAP PO SCH ×2 (08:16→12:45)
[2016-08-01] MEDS: REMOVE OLD PATCH T-DERMAL SCH (08:17)
[2016-08-01] MEDS: SENNOSIDES 8.6 MG TAB PO SCH (08:23)
[2016-08-01] MEDS: DOCUSATE SODIUM 100 MG CAP PO SCH (08:23)
[2016-08-01] MEDS: POLYETHYLENE GLYCOL 17 GM PKG PO SCH (08:23)
[2016-08-01] MEDS: TIOTROPIUM BROMIDE 18 MCG INH INH SCH (08:23)
--- NOTE | 2016-08-01 09:29 | HHI.PR ---
Subjective Remarks No fever or chills. Less cough. No pain or burning with urination. She was sleeping last night. Denies having any chest pain or shortness of breath. Cleared by him for discharge pathology reviewed Objective Vitals Vital Signs Date Time Temp Pulse Resp B/P Pulse Ox O2 Delivery O2 Flow Rate FiO2 08/01/16 08:05 97.3 72 18 107/49 96 08/01/16 04:00 97.5 67 18 116/71 98 08/01/16 00:00 98.3 51 18 116/74 97 07/31/16 20:00 98.2 65 18 106/53 98 07/31/16 17:59 81 07/31/16 16:00 97.2 76 16 84/47 100 07/31/16 12:00 97.7 69 16 108/52 96 I/O 07/31/16 07/31/16 07/31/16 08/01/16 08/01/16 08/01/16 07:00 15:00 23:00 07:00 15:00 23:00 Intake Total 0 ml 600 ml Output Total 1800 ml Balance 0 ml 600 ml -1800 ml Intake Oral 600 ml IV Total 0 ml Output Urine Total 1800 ml # Voids 5 3 # Bowel Movements 4 0 6 Result Diagram: 07/31/16 0555 07/30/16 0734 Imaging Last Impressions Chest X-Ray 07/31/16 0600 Signed Impressions: Service Date/Time: Sunday, July 31, 2016 05:33 - CONCLUSION: Abnormal volume loss left hemithorax with parenchymal opacity as above. CT chest with contrast may be helpful for further assessment. Kai El MD Bone Biopsy CT 07/27/16 0758 Signed Impressions: Service Date/Time: Wednesday, July 27, 2016 11:37 - CONCLUSION: 1. Uncomplicated CT guided bone marrow aspirate. 2. Uncomplicated CT guided bone marrow biopsy. Blayne Sheets MD FACR Renal Ultrasound 07/24/16 0000 Signed Impressions: Service Date/Time: Sunday, July 24, 2016 21:08 - CONCLUSION: 1. The kidneys appear decreased in size. There is increased echogenicity seen at the right kidney. These findings can suggest medical renal disease. 2. Splenomegaly. Jose Clark MD Head CT 07/22/[id number] Signed Impressions: Service Date/Time: Friday, July 22, 2016 21:12 - CONCLUSION: Moderate atrophy. No acute findings in the brain. 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 Air-fluid levels in both maxillary sinuses suggest acute maxillary sinusitis. Claudy Denis MD Objective Remarks GENERAL: Well-nourished, well-developed patient. SKIN: Warm and dry. HEAD: Normocephalic. EYES: No scleral icterus. No injection or drainage. NECK: Supple, trachea midline. No JVD or lymphadenopathy. CARDIOVASCULAR: Regular rate and rhythm without murmurs, gallops, or rubs. RESPIRATORY: Bilateral crackles appreciated, worse on the left. GASTROINTESTINAL: Abdomen soft, non-tender, nondistended. MUSCULOSKELETAL: No cyanosis, or edema. BACK: Nontender without obvious deformity. No CVA tenderness. NEURO: No gross deficits. PSYCH: Slightly flattened affect. Procedures Bone marrow biopsy 07/27. A/P Assessment and Plan Pneumonia CXR with left sided infiltrate. CXR 07/27 with persistent consolidation on the left but improving pulmonary edema.. ID consult appreciated. Sputum culture growing stenotrophomonas, urine culture growing pseudomonas. - Change Zosyn to Ceftaz per sensitivities. Renally dosed. Follow up with ID. PO Levaquin added. - oxygen and nebs as needed. Started scheduled nebs 07/27. Stable. Neutropenia, resolving. The pt has a history of neutropenia for which she was followed by a life management teacher. She received Neupogen earlier this month. The pt was found to have an ANC of 0.6. Hematology consult appreciated. Bone marrow biopsy performed 07/27. ANC 0.8 07/29. - follow CBC with diff. - further evaluation per hematology. - neutropenic precautions. - Continue antibiotics. - Follow pathology. Still pending 07/29. Lung cancer The pt is s/p treatment with surgery and radiation and is currently in remission. Has neutropenia as above. - follow up with oncology. - Oxygen and nebs as above. COPD Not in exacerbation at this time. Still smoking 6-8 cigarettes daily. - Symbicort, guaifenesin, Spiriva, DuoNeb. - Nicotine patch. - smoking cessation instruction. - Standing nebs. - ordered a new nebulizer and face mask per pt's daughter's request. Renal Failure Creatinine was found to be 4.68. She has stage 5 renal disease for which she was followed by a boarder hand. She had a fistula placed about three weeks ago. Appreciate nephrology input. S/p IVFs. Creatinine stable 07/29. - follow urine output. - Nephrology follow-up. - avoid nephrotoxic agents. Hypoglycemia Likely s/t decreased PO intake. S/p D5W. Stable 07/29. - encourage PO intake. Added Nepro. - check fingersticks twice daily. Anemia Likely secondary to renal disease. - Epogen as needed. - Follow CBC and transfuse as needed. - follow up with hematology. Insomnia. Cont temazepam as need at night for sleep. DC ambien PPx: Heparin. Discharge Planning Awaiting clinical improvement and clearance from consultants. Hem/onc cleared pt for DC. ID cleared pt for DC, on levaquin 500 q48 hrs for (total 5 doses). Awaiting nephrology clearance for DC Discussed with the patient, nurse, hem/onc Ondina Godwin MD Aug 01, 2016 09:29
[2016-08-01 09:46] LABS: AUTOMATED NEUTROPHIL # 1.1 TH/MM3 (1.8-7.7); BASOPHIL % 1.7 % (0.0-2.0); EOSINOPHIL % 0.5 % (0.0-4.0); HEMATOCRIT 31.7 % (35.0-46.0); HEMO FLAGS DIFF FINAL; LYMPH % 24.4 % (9.0-44.0); LYMPHOCYTE # 0.6 TH/MM3 (1.0-4.8); MEAN CELL VOLUME 85.2 FL (80.0-100.0); MEAN CORPUSCULAR HEMOGLOBIN 28.1 PG (27.0-34.0); MONO % 25.1 % (0.0-8.0); NEUT % 48.3 % (16.0-70.0); PLATELET COUNT 243 TH/MM3 (150-450); RED BLOOD COUNT 3.71 MIL/MM3 (4.00-5.30); RED CELL DISTRIBUTION WIDTH 13.1 % (11.6-17.2); WHITE BLOOD COUNT 2.3 TH/MM3 (4.0-11.0)
[2016-08-01 09:54] LABS: BICARBONATE 26.3 MEQ/L (21.0-32.0); POTASSIUM 5.5 MEQ/L (3.5-5.1)
--- NOTE | 2016-08-01 11:54 | PD.ONC.PN ---
Subjective Subjective Remarks Afebrile overnight. Patient resting comfortably. She wants to know when she will be able to go home. Objective Data Date Time Temp Pulse Resp B/P Pulse Ox O2 Delivery O2 Flow Rate FiO2 08/01/16 11:31 59 08/01/16 08:05 97.3 72 18 107/49 96 08/01/16 04:00 97.5 67 18 116/71 98 08/01/16 00:00 98.3 51 18 116/74 97 07/31/16 20:00 98.2 65 18 106/53 98 07/31/16 17:59 81 07/31/16 16:00 97.2 76 16 84/47 100 07/31/16 12:00 97.7 69 16 108/52 96 08/01/16 08/01/16 08/01/16 07:00 15:00 23:00 Output Total 1800 ml Balance -1800 ml Result Diagram: 08/01/16 0850 08/01/16 0850 Laboratory Results Laboratory Tests Test 08/01/16 08:50 White Blood Count 2.3 TH/MM3 Red Blood Count 3.71 MIL/MM3 Hemoglobin 10.4 GM/DL Hematocrit 31.7 % Mean Corpuscular Volume 85.2 FL Mean Corpuscular Hemoglobin 28.1 PG Mean Corpuscular Hemoglobin 33.0 % Concent Red Cell Distribution Width 13.1 % Platelet Count 243 TH/MM3 Mean Platelet Volume 7.5 FL Neutrophils (%) (Auto) 48.3 % Lymphocytes (%) (Auto) 24.4 % Monocytes (%) (Auto) 25.1 % Eosinophils (%) (Auto) 0.5 % Basophils (%) (Auto) 1.7 % Neutrophils # (Auto) 1.1 TH/MM3 Lymphocytes # (Auto) 0.6 TH/MM3 Monocytes # (Auto) 0.6 TH/MM3 Eosinophils # (Auto) 0.0 TH/MM3 Basophils # (Auto) 0.0 TH/MM3 CBC Comment DIFF FINAL Differential Comment Sodium Level 139 MEQ/L Potassium Level 5.5 MEQ/L Chloride Level 105 MEQ/L Carbon Dioxide Level 26.3 MEQ/L Anion Gap 8 MEQ/L Blood Urea Nitrogen 50 MG/DL Creatinine 3.81 MG/DL Estimat Glomerular Filtration 12 ML/MIN Rate Random Glucose 72 MG/DL Calcium Level 9.1 MG/DL Culture Results Microbiology Date/Time Procedure Status Source Growth 07/30/16 16:30 Urine Culture - Final Complete Urine Clean Catch NO GROWTH IN 48 HOURS. Administered Medications Medications (Trade) Dose Ordered Sig/Carlos Route PRN Reason Start Time Stop Time Status Last Admin Dose Admin Acetaminophen (Tylenol) 650 mg Q6H PRN PO PAIN 1-10 AND/OR FEVER >101F 07/22/16 23:00 07/26/16 08:27 Docusate Sodium (Colace) 100 mg BID PO 07/23/16 09:00 07/31/16 21:19 IV Flush (NS Flush) 2 ml BID IV FLUSH 07/23/16 09:00 08/01/16 08:16 Aspirin (Ecotrin Ec) 81 mg DAILY PO 07/23/16 09:00 08/01/16 08:15 Budesonide/ Formoterol Fumarate (Symbicort 160-4.5 Inh) 2 puff Q12HR INH 07/23/16 09:00 08/01/16 08:15 Gabapentin (Neurontin) 100 mg TID PO 07/23/16 09:00 08/01/16 08:16 Guaifenesin (Mucinex Er) 600 mg TID PO 07/23/16 09:00 08/01/16 08:16 Nicotine (Habitrol 21 Mg Patch.24 Hr) 1 patch DAILY T-DERMAL 07/23/16 09:00 08/01/16 08:16 Tiotropium Carroll (Spiriva Inh) 18 mcg DAILY INH 07/23/16 09:00 07/31/16 09:27 Tolterodine Tartrate (Detrol La) 2 mg DAILY PO 07/23/16 09:00 08/01/16 08:16 Miscellaneous Information 1 DAILY T-DERMAL 07/23/16 09:00 08/01/16 08:17 Oxycodone HCl (Roxicodone) 10 mg Q4H PRN PO pain 6-10 07/23/16 10:00 08/01/16 08:16 Polyethylene Glycol (Miralax) 17 gm BID PO 07/23/16 10:30 07/31/16 21:20 Sennosides (Senokot) 17.2 mg DAILY PO 07/23/16 10:30 07/31/16 09:24 Sodium Bicarbonate 650 mg 650 mg Q12HR PO 07/24/16 21:00 08/01/16 08:16 Ceftazidime/ Sodium Chloride (Fortaz Inj/NS Inj) 100 ml @ 200 mls/hr DAILY IV 07/25/16 16:00 08/01/16 08:14 Levofloxacin (Levaquin) 250 mg Q48H PO 07/25/16 18:00 07/31/16 17:47 Calcitriol (Rocaltrol) 0.25 mcg DAILY PO 07/27/16 09:00 08/01/16 08:16 Alprazolam (Xanax) 0.5 mg Q6H PRN PO ANXIETY 07/29/16 11:15 08/01/16 00:51 Temazepam (Restoril) 15 mg HS PRN PO insomnia 07/30/16 21:00 07/31/16 23:12 Objective Remarks GENERAL: Pleasant elderly female, sitting up in bed, anxious SKIN: Warm and dry. HEAD: Normocephalic. EYES: No injection or drainage. NECK: Supple, trachea midline. CARDIOVASCULAR: Regular rate and rhythm RESPIRATORY: anterior pat clear. GASTROINTESTINAL: Abdomen soft, non-tender, nondistended. EXTREMITIES: No cyanosis NEUROLOGICAL: awake and alert, normal speech. able to move extremities. 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 --bone marrow biopsy shows hypercellular bone marrow with myeloid and megakaryocytic hyperplasia --has apparently been happening since 03/2016. was receiving periodic Neupogen shots--last shot reported 06/26/16 just before patient moved to [place]. --was followed by Dr. Eric Peters of [facility] (main # [phone]) (medical records: [phone], fax:[phone]) (2) Normocytic anemia Status: Acute Plan: --secondary to renal insufficiency--received Epogen 07/25/16 --Serum iron studies more consistent with anemia of chronic disease--elevated ferritin, low TIBC, normal saturation. (3) Squamous cell carcinoma Status: Acute Plan: --diagnosis of squamous cell carcinoma which was diagnosed three years ago while she was still residing in [place]. --underwent surgical resection followed by radiation. Assessment 65y/o female admitted with hypotension, dehydration, acute on chronic renal failure. Hematology/Oncology consulted for leukopenia. Plan 1. d/w patient bone marrow biopsy results. 2. fs faxed to new patient referrals for follow up 3. neutropenic precautions d/c'd 4. follow up in clinic within 2 weeks. Problem Qualifiers (1) Neutropenia: Qualified Code: D70.9 - Neutropenia, unspecified type Nia Fuentes Aug 01, 2016 11:54
--- NOTE | 2016-08-01 13:37 | HHI.IDPN ---
Note Infectious Disease Note Patient feels better. feels well. Alert. No SOB. No chills. Afebrile. WBC improved. Presented with altered mental status, weakness, malaise, headache, back pain, chest pain. cough, abdominal pain and intermittent nausea and vomiting. Found to be neutropenic. PAST MEDICAL HISTORY 1. Non-small cell lung cancer. 2. Chronic kidney disease. 3. Pancytopenia. 4. Hypertension. 5. Left forearm AV fistula. 6. Cholecystectomy. 7. Tubal ligation. 8. Aneurysm. 9. Diabetes mellitus. ALLERGIES 1. CIPRO. ( patient notes that she had itching but no rash with cipro and that she tolerated Levaquin before) 2. CODEINE. 3. MORPHINE. ANTIBIOTICS Ceftazidime. Levaquin. OBJECTIVE: Vital Signs Date Time Temp Pulse Resp B/P Pulse Ox O2 Delivery O2 Flow Rate FiO2 08/01/16 12:04 97.2 71 18 98/50 99 08/01/16 11:31 59 08/01/16 08:05 97.3 72 18 107/49 96 08/01/16 04:00 97.5 67 18 116/71 98 08/01/16 00:00 98.3 51 18 116/74 97 07/31/16 20:00 98.2 65 18 106/53 98 07/31/16 17:59 81 07/31/16 16:00 97.2 76 16 84/47 100 Laboratory Tests Test 07/31/16 08/01/16 05:55 08:50 White Blood Count 2.1 TH/MM3 2.3 TH/MM3 Red Blood Count 3.31 MIL/MM3 3.71 MIL/MM3 Hemoglobin 9.2 GM/DL 10.4 GM/DL Hematocrit 28.3 % 31.7 % Mean Corpuscular Volume 85.5 FL 85.2 FL Mean Corpuscular Hemoglobin 27.9 PG 28.1 PG Mean Corpuscular Hemoglobin 32.6 % 33.0 % Concent Red Cell Distribution Width 13.4 % 13.1 % Platelet Count 225 TH/MM3 243 TH/MM3 Mean Platelet Volume 7.3 FL 7.5 FL Neutrophils (%) (Auto) 44.7 % 48.3 % Lymphocytes (%) (Auto) 27.1 % 24.4 % Monocytes (%) (Auto) 25.8 % 25.1 % Eosinophils (%) (Auto) 0.5 % 0.5 % Basophils (%) (Auto) 1.9 % 1.7 % Neutrophils # (Auto) 1.0 TH/MM3 1.1 TH/MM3 Lymphocytes # (Auto) 0.6 TH/MM3 0.6 TH/MM3 Monocytes # (Auto) 0.6 TH/MM3 0.6 TH/MM3 Eosinophils # (Auto) 0.0 TH/MM3 0.0 TH/MM3 Basophils # (Auto) 0.0 TH/MM3 0.0 TH/MM3 CBC Comment DIFF FINAL DIFF FINAL Differential Comment Laboratory Tests Test 08/01/16 08:50 Sodium Level 139 MEQ/L Potassium Level 5.5 MEQ/L Chloride Level 105 MEQ/L Carbon Dioxide Level 26.3 MEQ/L Anion Gap 8 MEQ/L Blood Urea Nitrogen 50 MG/DL Creatinine 3.81 MG/DL Estimat Glomerular Filtration 12 ML/MIN Rate Random Glucose 72 MG/DL Calcium Level 9.1 MG/DL Microbiology Date/Time Procedure Status Source Growth 07/30/16 16:30 Urine Culture - Final Complete Urine Clean Catch NO GROWTH IN 48 HOURS. Microbiology Date/Time Procedure Status Source Growth 07/22/16 22:00 Aerobic Blood Culture - Preliminary Resulted Blood Peripheral NO GROWTH IN 3 DAYS 07/22/16 22:00 Anaerobic Blood Culture - Preliminary Resulted Blood Peripheral NO GROWTH IN 3 DAYS 07/22/16 22:10 Aerobic Blood Culture - Preliminary Resulted Blood Peripheral NO GROWTH IN 3 DAYS 07/22/16 22:10 Anaerobic Blood Culture - Preliminary Resulted Blood Peripheral NO GROWTH IN 3 DAYS 07/22/16 22:20 Urine Culture - Final Complete Urine Clean Catch Pseudomonas Aeruginosa 07/23/16 00:20 Gram Stain - Final Complete Sputum Expectorated Sputum 07/23/16 00:20 Sputum Culture - Final Complete Stenotrophomonas Maltophilia PHYSICAL EXAMINATION GENERAL: No acute distress. HEENT: No icterus. Oropharynx no visible lesions. Moist mucosa. NECK: Supple without adenopathy or swelling. Trachea midline. LUNGS: Clear breath sounds slight basilar rhonchi. HEART: Regular S1 and S2. Slight systolic murmur. ABDOMEN: Bowel sounds present. Soft. No tenderness appreciated. EXTREMITIES: The left upper extremity has an AV fistula intact. No edema. No lesions. NEUROLOGIC: Nonfocal. SKIN: No rash. PSYCH: Anxious. IMPRESSION 1. Sepsis. 2. Persistent neutropenia. ? etiology. improved. Trazodone d/jonas. Patient has been on it for the past 5 years for sleep. 3. Pneumonia. Stenotrophomonas. 4. Urinary tract infection. Pseudomonas. 5. Acute kidney disease on chronic kidney disease. RECOMMENDATIONS 1. STOP Ceftazidime. 2. Continue Levaquin PO. Okay to discharge on PO Levaquin x 10 days. (5 doses of Q48H dosing because of renal function.) Kameron Santos MD Aug 01, 2016 13:37
[2016-08-01] MEDS ORDERED: REST15CA PO (14:43)
--- NOTE | 2016-08-01 14:45 | HHI.DS ---
Discharge Summary Admission Date Jul 22, 2016 at 22:33 Discharge Date: Aug 01, 2016 Admitting Diagnosis sepsis. Acute on chronic kidney disease. Neutropenia. (1) UTI (urinary tract infection) ICD Code: N39.0 (2) Pneumonia, bacterial ICD Code: J15.9 (3) Acute kidney injury superimposed on chronic kidney disease ICD Code: N17.9 Diagnosis: Principal (4) Neutropenia ICD Code: D70.9 Diagnosis: Principal (5) COPD (chronic obstructive pulmonary disease) ICD Code: J44.9 Diagnosis: Secondary (6) Normocytic anemia ICD Code: D64.9 Diagnosis: Secondary (7) Hypoxia ICD Code: R09.02 Diagnosis: Secondary (8) Sepsis ICD Code: A41.9 Diagnosis: Principal (9) Chronic kidney disease ICD Code: N18.9 Diagnosis: Secondary Procedures Bone marrow biopsy 07/27. 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 Patient has history of chronic kidney disease and neutropenia. 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 Patient had AV fistula placement 3 weeks ago in [place]. Patient had Neupogen shot on June 26 in [place]. Patient was seen in emergency room on July 20, 2016 for abnormal labs. CBC/BMP: 08/01/16 0850 08/01/16 0850 Significant Findings Laboratory Tests Test 07/30/16 07/31/16 08/01/16 07:34 05:55 08:50 White Blood Count 1.8 TH/MM3 2.1 TH/MM3 2.3 TH/MM3 (4.0-11.0) (4.0-11.0) (4.0-11.0) Red Blood Count 3.32 MIL/MM3 3.31 MIL/MM3 3.71 MIL/MM3 (4.00-5.30) (4.00-5.30) (4.00-5.30) Hemoglobin 9.3 GM/DL 9.2 GM/DL 10.4 GM/DL (11.6-15.3) (11.6-15.3) (11.6-15.3) Hematocrit 28.2 % 28.3 % 31.7 % (35.0-46.0) (35.0-46.0) (35.0-46.0) Monocytes (%) (Auto) 31.0 % 25.8 % 25.1 % (0.0-8.0) (0.0-8.0) (0.0-8.0) Neutrophils # (Auto) 0.7 TH/MM3 1.0 TH/MM3 1.1 TH/MM3 (1.8-7.7) (1.8-7.7) (1.8-7.7) Lymphocytes # (Auto) 0.5 TH/MM3 0.6 TH/MM3 0.6 TH/MM3 (1.0-4.8) (1.0-4.8) (1.0-4.8) Monocytes % 34 % (0-8) Neutrophils # (Manual) 0.7 TH/MM3 (1.8-7.7) Potassium Level 5.3 MEQ/L 5.5 MEQ/L (3.5-5.1) (3.5-5.1) Blood Urea Nitrogen 39 MG/DL (7-18) 50 MG/DL (7-18) Creatinine 3.61 MG/DL 3.81 MG/DL (0.50-1.00) (0.50-1.00) Estimat Glomerular Filtration 13 ML/MIN (>89) 12 ML/MIN (>89) Rate Random Glucose 71 MG/DL 72 MG/DL (74-106) (74-106) Aspartate Amino Transf 9 U/L (15-37) (AST/SGOT) Albumin 2.8 GM/DL (3.4-5.0) Imaging Last Impressions Chest X-Ray 07/31/16 0600 Signed Impressions: Service Date/Time: Sunday, July 31, 2016 05:33 - CONCLUSION: Abnormal volume loss left hemithorax with parenchymal opacity as above. CT chest with contrast may be helpful for further assessment. Kai El MD Bone Biopsy CT 07/27/16 0758 Signed Impressions: Service Date/Time: Wednesday, July 27, 2016 11:37 - CONCLUSION: 1. Uncomplicated CT guided bone marrow aspirate. 2. Uncomplicated CT guided bone marrow biopsy. Blayne Sheets MD FACR Renal Ultrasound 07/24/16 0000 Signed Impressions: Service Date/Time: Sunday, July 24, 2016 21:08 - CONCLUSION: 1. The kidneys appear decreased in size. There is increased echogenicity seen at the right kidney. These findings can suggest medical renal disease. 2. Splenomegaly. Jose Clark MD Head CT 07/22/162057 Signed Impressions: Service Date/Time: Friday, July 22, 2016 21:12 - CONCLUSION: Moderate atrophy. No acute findings in the brain. 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 Air-fluid levels in both maxillary sinuses suggest acute maxillary sinusitis. Claudy Denis MD PE at Discharge GENERAL: Well-nourished, well-developed patient. SKIN: Warm and dry. HEAD: Normocephalic. EYES: No scleral icterus. No injection or drainage. NECK: Supple, trachea midline. No JVD or lymphadenopathy. CARDIOVASCULAR: Regular rate and rhythm without murmurs, gallops, or rubs. RESPIRATORY: Bilateral crackles appreciated, worse on the left. GASTROINTESTINAL: Abdomen soft, non-tender, nondistended. MUSCULOSKELETAL: No cyanosis, or edema. BACK: Nontender without obvious deformity. No CVA tenderness. NEURO: No gross deficits. PSYCH: Slightly flattened affect. Hospital Course Pneumonia CXR with left sided infiltrate. CXR 2/3 with persistent consolidation on the left but improving pulmonary edema.. ID consult appreciated. Sputum culture growing stenotrophomonas, urine culture growing pseudomonas. - Change Zosyn to Ceftaz per sensitivities. Renally dosed. Follow up with ID. PO Levaquin added. - oxygen and nebs as needed. Started scheduled nebs /. Stable. Neutropenia, resolving. The pt has a history of neutropenia for which she was followed by a automotive tire worker. She received Neupogen earlier this month. The pt was found to have an ANC of 0.6. Hematology consult appreciated. Bone marrow biopsy performed 07/27. ANC 0.8 07/29. - follow CBC with diff. - further evaluation per hematology. - neutropenic precautions. - Continue antibiotics. - Follow pathology. Still pending 07/29. Lung cancer The pt is s/p treatment with surgery and radiation and is currently in remission. Has neutropenia as above. - follow up with oncology. - Oxygen and nebs as above. COPD Not in exacerbation at this time. Still smoking 6-8 cigarettes daily. - Symbicort, guaifenesin, Spiriva, DuoNeb. - Nicotine patch. - smoking cessation instruction. - Standing nebs. - ordered a new nebulizer and face mask per pt's daughter's request. Renal Failure Creatinine was found to be 4.68. She has stage 5 renal disease for which she was followed by a documentation specialist. She had a fistula placed about three weeks ago. Appreciate nephrology input. S/p IVFs. Creatinine stable 07/29. - follow urine output. - Nephrology follow-up. - avoid nephrotoxic agents. Hypoglycemia Likely s/t decreased PO intake. S/p D5W. Stable 07/29. - encourage PO intake. Added Nepro. - check fingersticks twice daily. Anemia Likely secondary to renal disease. - Epogen as needed. - Follow CBC and transfuse as needed. - follow up with hematology. Insomnia. Cont temazepam as need at night for sleep. DC ambien PPx: Heparin. Discharge Planning Awaiting clinical improvement and clearance from consultants. Hem/onc cleared pt for DC. ID cleared pt for DC, on levaquin 250 mg po Q48 hrs (5 doses) . Patient improved , was discharged home in fairly stable condition. To follow up as OP with PCP and consultants. Pt Condition on Discharge: Stable Discharge Disposition: Disch w/ Home Health Serv Discharge Time: > 30 minutes Discharge Instructions DIET: Follow Instructions for: Renal Failure Diet Activities you can perform: Regular-No Restrictions Follow up Referrals: Nephrology - 3-5 Days Oncology - 2 Weeks with Angel Jurado MD PCP Follow-up - 3-5 Days New Medications: Nebulizer (Nebulizer) 1 Mis Mis 1 EA .ROUTE DIRECTED Breathing Treatment #1 Ref 0 EA Nebulizer/Adult Mask (Nebulizer/Adult Mask) 1 Kit Kit 1 KIT .ROUTE DIRECTED Breathing Treatment #1 Ref 0 KIT Levofloxacin (Levaquin) 250 Mg Tab 250 MG PO Q48H infection #5 TAB Temazepam (Restoril) 15 Mg Cap 15 MG PO HS PRN insomnia #30 CAP Continued Medications: Alprazolam (Alprazolam) 0.5 Mg Tab 0.5 MG PO Q12HR PRN ANXIETY Ref [address] (Aspirin 81) 81 Mg Tabdr 81 MG PO DAILY Ref 0 TAB Budesonide-Formoterol Inh (Symbicort Inh) 160-4.5 Mcg/Act Aero 2 PUFF INH Q12HR #1 Ref 0 INHALER Cholecalciferol (Vitamin D3) 2,000 Unit Tab 2000 UNITS PO DAILY Nutritional Supplement #1 Ref 0 BOTTLE Docusate Sodium (Docusate Sodium) 100 Mg Cap 100 MG PO BID Prevent Constipation #60 Ref 0 CAP Famotidine (Famotidine) 20 Mg Tab 20 MG PO DAILY #60 Ref 0 TAB Gabapentin (Gabapentin) 100 Mg Cap 100 MG PO TID #90 Ref 0 CAP Guaifenesin ER 12 HR (Mucinex ER 12 HR) 600 Mg Melania 600 MG PO TID Chest Congestion/Cough Ref 0 TAB Ipratropium-Albuterol Neb (Duoneb) 0.5-2.5 Mg/3 Ml Neb 1 NEBULE INH Q6HR NEB Breathing Treatment #120 Ref 0 NEBULE Nicotine Patch (Nicoderm CQ Patch) 21 Mg/24 Hr Patch 21 MG T-DERMAL DAILY Smoking Cessation #30 Ref 0 PATCH Oxycodone HCl (Oxycodone Hydrochloride) 5 Mg Cap 10 MG Tiotropium Inh (Spiriva Handihaler) 18 Mcg Cap 18 MCG INH DAILY 1 capsule = 18 mcg COPD #30 Ref 0 CAP Tolterodine (Tolterodine) 1 Mg Tab 1 MG PO DAILY Urinary Symptom Managemen #60 Ref 0 TAB Discontinued Medications: Trazodone (Trazodone) 150 Mg Tab 150 MG PO HS Control Depression #30 Ref 0 TAB Ondina Godwin MD Aug 01, 2016 14:45
--- NOTE | 2016-08-01 14:46 | HHI.FF ---
Face to Face Verification Diagnosis: (1) COPD (chronic obstructive pulmonary disease) (2) Squamous cell carcinoma (3) Neutropenia (4) Normocytic anemia (5) Hypoxia (6) Sepsis (7) Chronic kidney disease (8) Acute kidney injury superimposed on chronic kidney disease Physical Therapy Order: Evaluate and Treat Home Health Nursing Order: Medical education Signs/symptoms of disease process Medication education-adverse effect Nursing assessment with vital signs I have seen patient Allie Hylton on 08/01/16. My clinical findings support the need for the requested home health care services because: Ltd mobility - disease progression I certify that my clinical findings support that this patient is homebound because: Post-op weakness Ondina Godwin MD Aug 01, 2016 14:46
[2016-08-01] MEDS ORDERED: LEVA250T PO (14:49)
--- NOTE | 2016-08-01 17:06 | HHI.NPPN ---
Subjective History of Present Illness 65-year-old white female with history of lung cancer, chronic kidney disease who moved to this area having some cough Additional Remarks Patient is alert, breathing is better, eating well. Review of Systems General Constitutional: Fatigue Respiratory Lungs: Cough Objective Data Data 07/31/16 08/01/16 19:00 07:00 Intake Total 600 ml Output Total 1800 ml Balance 600 ml -1800 ml Intake Oral 600 ml Output Urine Total 1800 ml # Voids 3 # Bowel Movements 0 6 Vital Signs Date Time Temp Pulse Resp B/P Pulse Ox O2 Delivery O2 Flow Rate FiO2 08/01/16 16:26 97.5 75 18 115/56 99 08/01/16 14:21 97 21 08/01/16 12:04 97.2 71 18 98/50 99 08/01/16 11:31 59 08/01/16 08:05 97.3 72 18 107/49 96 08/01/16 04:00 97.5 67 18 116/71 98 08/01/16 00:00 98.3 51 18 116/74 97 07/31/16 20:00 98.2 65 18 106/53 98 07/31/16 17:59 81 -: 08/01/16 0850 08/01/16 0850 Physical Exam General Appearance: No Acute Distress, Comfortable Neck Neck Exam: Neck Supple Pulmonary Resp Exam: Decreased Bases Cardiology CV Exam: Regular, Normal Sinus Rhythm Gastrointestinal/Abdomen GI Exam: Soft, Non-Tender, Bowel Sounds Present Integumentary Skin Exam: Clear Extremeties Extremities Exam: Trace Edema Neurologic Neuro Exam: Alert, Awake Psychiatric Psych Exam: Appropriate Responses Assessment/Plan Problem List: (1) Chronic kidney disease Plan: Creatinine 3.7 -> 3.4 - Renal function stable. Here due to low WBC, BM biopsy done There is no urgent need to start dialysis at this hospitalization. Volume status and electrolytes, creatinine stable at this point. Patient recently moved here, has a left brachiobasilic 1st stage AV fistula which was created elsewhere. She will need to be evaluated for a 2nd stage superficialization in 2-3 weeks as her medical issues further stabilize. Patient has advance renal disease. Has AVF, now for D/C . To follow with Dr. Jurado and he will decide about starting HD. Patient told to call his office for appointment. (2) COPD (chronic obstructive pulmonary disease) Plan: Patient has been admitted and treated (3) Neutropenia Plan: Likely due to bone marrow dysfunction oncology following (4) Sepsis Plan: Patient has UTI and possible bronchitis pneumonia on Ceftazidime Problem Qualifiers (1) Chronic kidney disease: Qualified Code: N18.5 - Chronic kidney disease, stage 5 (2) Neutropenia: Qualified Code: D70.9 - Neutropenia, unspecified type (3) Sepsis: Qualified Code: A41.9 - Sepsis, due to unspecified organism Reji Lezama MD Aug 01, 2016 17:06
--- NOTE | 2016-08-07 12:42 | PQ ---
Physician Query Response Document PATIENT: ENZO ZUNIGA : 1950 ADMIT DATE: 07/22/2016 10:33 PM DISCH DATE: 08/01/2016 6:25 PM RESPONDING PROVIDER #: christina QUERY TEXT: Sepsis Query Based on your medical judgement, can you further clarify the folowiin. Sepsis (SIRS due to an infection) 2. Sepsis with Organ Dysfunction 3. A localized Infection only 4. Another condition - please specify 5. Unable to determine - please explain. Depending on your selection above, please indicate one of the below if applicable: - Sepsis was present on Admission - Sepsis developed after admission The patient's Clinical Indicators include: Sepsis criteria: temperature greater than 100 or less than 96, heart rate of greater than 90, respira tory rate greater than 20, White blood count less than 4,000 or greater than 12,000. Query created by: Ashley Vasquez on 08/01/2016 10:10 AM RESPONSE TEXT: Patient doesn't meet the sepsis criteria. Patient Has UTI with Pseudomonas aeruginosa growing ion the urine. She also has pneumonia with Stenotrophomonas multophilla growing in her sputum. She was treat ed with antibiotics and was sent home on antibiotics,. Patient is neutropenic and at risk of multiple infections. QUERY TEXT: Clinical Validity Additional clinical indicators are required to support your documented diagnosis of pneumonia Please respond and also state in your next progress note whether: -- Condition exists and also please provide clinical indicators to support the diagnosis -- Condition does not exist and also please provide amended documentation in the medical record to hector osorio -- Unable to provide additional clarity regarding the diagnosis -- Other, please specify The patient's Clinical Indicators include: The progress note from Dr. Godwin on 08/01/16 states RESPIRATORY: Bilateral crackles appreciated, worse on the left. COPD Not in exacerbation at this time. Still smoking 6-8 cigarettes daily. Progress note also states pneum onia. Query created by: Ashley Vasquez on 08/01/2016 10:17 AM RESPONSE TEXT: Patient has pneumonia. She also has a h/o COPD ( h/o smoking) , however without exacerbation at the t [place] of evaluation. She received however nebs. No steroids given as patient neutropenic with Pneumonia and UTI. There were no wheezing on exam. QUERY TEXT: Clarification of Clinical Diagnostic Findings Please clarify documentation or clinical relevance for the clinical / diagnostic findings or whether those are insignificant or unable to be further specified. The patient's Clinical Indicators include: Infectious disease progress noted dated 07/30/16 states Urinary tract infection. Pseudomonas. Query created by: Ashley Vasquez on 08/01/2016 11:15 AM RESPONSE TEXT: Patient has UTI with cultures growing Pseudomonas aeruginosa. Patient also has Pneumonia with sputum cultures growing Stenotrophomonas. Patient is neutropenic and is at risk of multiple infections. Note did not meet sepsis criteria. Electronically signed by: Ondina Godwin MD 08/07/2016 12:38 PM
[2016-09-17] MEDS ORDERED: OXYGEN NAS.CANULA (15:14)
[2016-09-17] MEDS ORDERED: OXYGENTANK NAS.CANULA (15:15)
== END 2016-08-01 18:25 | disposition home or self-care (01) | DRG 194 ==
LOC: NEPC 19:46 → NEDA 22:33 → NEDH 07-23 04:30 → N05A 07-23 15:50
PROVIDERS: ADMIT Hospitalist; ATTEND Hospitalist
PROC: 07DR3ZX Extraction of Iliac Bone Marrow, Percutaneous Approach, Diagnostic (ICD-10-PCS; principal; 2016-07-27)
DX: J15.9 Unspecified bacterial pneumonia (principal); N39.0 Urinary tract infection, site not specified; N17.9 Acute kidney failure, unspecified; J81.1 Chronic pulmonary edema; I12.0 Hypertensive chronic kidney disease with stage 5 chronic kidney disease or end stage renal disease; D70.3 Neutropenia due to infection; N18.5 Chronic kidney disease, stage 5; J44.0 Chronic obstructive pulmonary disease with (acute) lower respiratory infection; E11.22 Type 2 diabetes mellitus with diabetic chronic kidney disease; B96.5 Pseudomonas (aeruginosa) (mallei) (pseudomallei) as the cause of diseases classified elsewhere; D64.9 Anemia, unspecified; Z85.118 Personal history of other malignant neoplasm of bronchus and lung; E11.649 Type 2 diabetes mellitus with hypoglycemia without coma; E86.0 Dehydration; F10.21 Alcohol dependence, in remission; F17.210 Nicotine dependence, cigarettes, uncomplicated; G47.00 Insomnia, unspecified; G62.9 Polyneuropathy, unspecified; I25.10 Atherosclerotic heart disease of native coronary artery without angina pectoris; I25.2 Old myocardial infarction; K21.9 Gastro-esophageal reflux disease without esophagitis; R09.02 Hypoxemia; R62.7 Adult failure to thrive; F41.8 Other specified anxiety disorders; Z86.79 Personal history of other diseases of the circulatory system; Z92.3 Personal history of irradiation; Z99.2 Dependence on renal dialysis
CPT/HCPCS: 38221; 70450; 71010; 76775; 76937; 77012; 80048; 80053; 80202; 81001; 82306; 82550; 82607; 82728; 82746; 82948; 83540; 83550; 83605; 83735; 83880; 83970; 84100; 84443; 84484; 85007; 85025; 85027; 85097; 85610; 85730; 86038; 86039; 87040; 87070; 87077; 87086; 87186; 87205; 88305; 88311; 88313; 93005; 94640; 94664; 96360; 99152; 99153; C1830; G0364; J0713; J1170; J1644; J2250; J2543; J3010; J3370; J7030; J7050; J7070; Q4081

== ENCOUNTER 2016-08-13 14:27 | Emergency (ER) | payer MEDICARE ==
[~2016-08-13] VITALS: Ht 165.1 cm; Wt 57.0 kg
[~2016-08-13 14:27] MED LIST changes: -FLUO20CA4 PO; +LEVA250T PO; +NEBULIZER/ADULT1 KIT; +NEBULIZER1 MI1; +REST15CA PO; -TRAZ150T75 PO
[2016-08-13 14:29] VITALS: BP 125/60; PULSE 76; RESP 20; TEMP 97.9; O2SAT 100
--- NOTE | 2016-08-13 18:01 | PD ---
HPI Chief Complaint: Abnormal Results Time Seen by Provider: 17:57 Travel History International Travel<30 days: No Contact w/Intl Traveler<30days: No Traveled to known affect area: No History of Present Illness HPI Patient is a 65-year-old female sent by her vascular surgeon for evaluation of her renal function. Patient an AV fistula placed which is immature still, her surgeon was concerned that she may have further decline in her renal function and need emergent dialysis. Patient has no physical complaints other than dysuria and itching. Patient's history includes chronic kidney disease, COPD, lung cancer status post radiation. Patient endorses tobacco use, less than one pack per day. Patient's operator coating furnace is Dr. Chance, her surgeon is Dr. Aurea LIU Past Medical History Hx Anticoagulant Therapy: Yes (asa 81) Anxiety: Yes Depression: Yes Cancer: Yes (lung) Chest Pain: Yes COPD: Yes Diabetes: No (hx of) Diminished Hearing: No GERD: Yes Hypertension: Yes Medical other: Yes (end-stage renal disease) Respiratory: Yes (copd, O2 16 hours a day, not at present) Myocardial Infarction: Yes ("minor") Pneumonia: Yes Radiation Therapy: Yes Renal Failure: Yes : 3 Para: 3 Past Surgical History Cholecystectomy: Yes Neurologic Surgery: Yes (brain ) Social History Alcohol Use: No Tobacco Use: Yes Substance Use: No Allergies-Medications (Allergen,Severity, Reaction): Coded Allergies: Cipro (Verified Allergy, Unknown, 08/13/16) Codeine (Verified Allergy, Unknown, 08/13/16) Morphine (Verified Allergy, Unknown, 08/13/16) Reported Meds & Prescriptions Reported Meds & Active Scripts Active Nebulizer/Adult Mask (N/A) 1 Kit Kit 1 Kit .ROUTE DIRECTED Nebulizer 1 Mis Mis 1 Ea .ROUTE DIRECTED Reported Duoneb (Ipratropium-Albuterol Neb) 0.5-2.5 Mg/3 Ml Neb 1 Nebule INH Q6HR NEB Alprazolam 0.5 Mg Tab 1 Mg PO BID Aspirin 81 (Aspirin) 81 Mg Tabdr 81 Mg PO DAILY Famotidine 20 Mg Tab 20 Mg PO DAILY Docusate Sodium 100 Mg Cap 100 Mg PO BID Vitamin D3 (Cholecalciferol) 2,000 Unit Tab 2,000 Units PO DAILY Spiriva Handihaler (Tiotropium Inh) 18 Mcg Cap 18 Mcg INH DAILY 1 capsule = 18 mcg Tolterodine (Tolterodine Tartrate) 1 Mg Tab 1 Mg PO DAILY Symbicort Inh (Budesonide/Formoterol Fumarate) 160-4.5 Mcg/Act Aero 2 Puff INH Q12HR Nicoderm CQ Patch (Nicotine) 21 Mg/24 Hr Patch 21 Mg T-DERMAL DAILY Mucinex ER 12 HR (Guaifenesin) 600 Mg Melania 600 Mg PO TID Oxycodone Hydrochloride (Oxycodone HCl) 5 Mg Cap 10 Mg Gabapentin 100 Mg Cap 100 Mg PO TID Review of Systems Except as stated in HPI: all other systems reviewed are Neg Genitourinary: Positive: Dysuria Skin: Positive Itching Physical Exam Narrative GENERAL: Thin, well-developed, alert elderly female. Resting comfortably in no acute distress. SKIN: Warm and dry. HEAD: Atraumatic. Normocephalic. EYES: Pupils equal and round. No scleral icterus. No injection or drainage. ENT: No nasal bleeding or discharge. Mucous membranes pink and moist. NECK: Trachea midline. No JVD. CARDIOVASCULAR: Regular rate and rhythm. No murmur appreciated. Left forearm AV fistula, positive throat, positive bruit. RESPIRATORY: No accessory muscle use. Clear to auscultation. Breath sounds equal bilaterally. GASTROINTESTINAL: Abdomen soft, non-tender, nondistended. Hepatic and splenic margins not palpable. MUSCULOSKELETAL: No obvious deformities. No clubbing. No cyanosis. No edema. NEUROLOGICAL: Awake and alert. No obvious cranial nerve deficits. Motor grossly within normal limits. Normal speech. PSYCHIATRIC: Appropriate mood and affect; insight and judgment normal. Data Data Last Documented VS Vital Signs Date Time Temp Pulse Resp B/P Pulse Ox O2 Delivery O2 Flow Rate FiO2 08/13/16 19:09 65 20 100/54 100 Room Air 08/13/16 14:29 97.9 Orders Complete Blood Count With Diff (08/13/16 17:39) Act Partial Throm Time (Ptt) (08/13/16 17:39) Prothrombin Time / Inr (Pt) (08/13/16 17:39) Comprehensive Metabolic Panel (08/13/16 17:39) Urinalysis - C+S If Indicated (08/13/16 18:01) Labs Laboratory Tests Test 08/13/16 08/13/16 17:59 18:03 White Blood Count 1.4 TH/MM3 Red Blood Count 3.95 MIL/MM3 Hemoglobin 11.5 GM/DL Hematocrit 34.1 % Mean Corpuscular Volume 86.4 FL Mean Corpuscular Hemoglobin 29.0 PG Mean Corpuscular Hemoglobin 33.6 % Concent Red Cell Distribution Width 15.4 % Platelet Count 336 TH/MM3 Mean Platelet Volume 6.8 FL Neutrophils (%) (Auto) % Lymphocytes (%) (Auto) % Monocytes (%) (Auto) % Eosinophils (%) (Auto) % Basophils (%) (Auto) % Neutrophils # (Auto) TH/MM3 Lymphocytes # (Auto) TH/MM3 Monocytes # (Auto) TH/MM3 Eosinophils # (Auto) TH/MM3 Basophils # (Auto) TH/MM3 CBC Comment AUTO DIFF Prothrombin Time 11.0 SEC Prothromb Time International 1.0 RATIO Ratio Activated Partial 32.7 SEC Thromboplast Time Sodium Level 140 MEQ/L Potassium Level 5.0 MEQ/L Chloride Level 108 MEQ/L Carbon Dioxide Level 23.6 MEQ/L Anion Gap 8 MEQ/L Blood Urea Nitrogen 55 MG/DL Creatinine 3.29 MG/DL Estimat Glomerular Filtration 14 ML/MIN Rate Random Glucose 71 MG/DL Calcium Level 9.2 MG/DL Total Bilirubin 0.4 MG/DL Aspartate Amino Transf 13 U/L (AST/SGOT) Alanine Aminotransferase 12 U/L (ALT/SGPT) Alkaline Phosphatase 104 U/L Total Protein 8.3 GM/DL Albumin 3.7 GM/DL Urine Color LIGHT-YELLOW Urine Turbidity CLEAR Urine pH 5.0 Urine Specific Butler 1.005 Urine Protein TRACE mg/dL Urine Glucose (UA) NEG mg/dL Urine Ketones NEG mg/dL Urine Occult Blood LARGE Urine Nitrite NEG Urine Bilirubin NEG Urine Urobilinogen LESS THAN 2.0 MG/DL Urine Leukocyte Esterase NEG Urine RBC 42 /hpf Urine WBC 1 /hpf Urine Squamous Epithelial <1 /hpf Cells Urine Bacteria FEW /hpf Urine Mucus FEW /lpf Microscopic Urinalysis Comment CULT NOT INDICATED MDM Medical Decision Making Medical Screen Exam Complete: Yes Emergency Medical Condition: Yes Interpretation(s) Vital Signs Date Time Temp Pulse Resp B/P Pulse Ox O2 Delivery O2 Flow Rate FiO2 08/13/16 14:29 97.9 76 20 125/60 100 Room Air Differential Diagnosis Electrolyte abnormality versus cardiac arrhythmia versus acute on chronic kidney disease versus other Narrative Course Patient is a 65-year-old female sent by her vascular surgeon for evaluation of her renal function to assess whether or not patient needs emergent dialysis. At that the case patient would likely due to PermCath placed due to an immature fistula in her left forearm. Fistula has a positive thrill and bruit. Patient reports dysuria, labs and urinalysis ordered and pending. Patient would place a medical bed when available, at that time care will be assumed by provider and that pod. Lavinia Garza Aug 13, 2016 18:01
[2016-08-13 18:23] LABS: HEMATOCRIT 34.1 % (35.0-46.0); MEAN CELL VOLUME 86.4 FL (80.0-100.0); MEAN CORPUSCULAR HGB CONC 33.6 % (32.0-36.0); PLATELET COUNT 336 TH/MM3 (150-450); RED BLOOD COUNT 3.95 MIL/MM3 (4.00-5.30); RED CELL DISTRIBUTION WIDTH 15.4 % (11.6-17.2); WHITE BLOOD COUNT 1.4 TH/MM3 (4.0-11.0)
[2016-08-13 18:29] LABS: BACTERIA, URINE FEW /hpf; BLOOD, URINE LARGE (NEG); COMMENT (UR) CULT NOT INDICATED; CULTURE IF INDICATED CULT NOT INDICATED; GLUCOSE,URINE NEG (NEG); KETONE, URINE NEG (NEG); MUCUS URINE FEW /lpf (OCC); NITRITE,URINE NEG (NEG); SQUAMOUS EPITHELIAL CELL URINE <1 /hpf (0-5); URINE COLOR LIGHT-YELLOW (YELLW/STRAW)
[2016-08-13 18:29] LABS: HEMO FLAGS AUTO DIFF
[2016-08-13 18:37] LABS: APTT (PATIENT) 32.7 SEC (24.3-30.1)
[2016-08-13 18:39] LABS: ALT (GPT) 12 U/L (10-53); ANION GAP 8 MEQ/L (5-15); AST (GOT) 13 U/L (15-37); BICARBONATE 23.6 MEQ/L (21.0-32.0); BLOOD UREA NITROGEN 55 MG/DL (7-18); CHLORIDE 108 MEQ/L (98-107); GLOMERULAR FILTRATION RATE 14 ML/MIN (>89); SODIUM (NA) 140 MEQ/L (136-145)
[2016-08-13 18:41] LABS: ALKALINE PHOSPHATASE 104 U/L (45-117); TOTAL BILIRUBIN ADULT 0.4 MG/DL (0.2-1.0)
[2016-08-13 19:09] VITALS: BP 100/54; PULSE 65; RESP 20; TEMP 98.2; O2SAT 100
[2016-08-13 19:26] LABS: BANDS 3 % (0-6); BASOPHILS 5 % (0-2); EOSINOPHILS 1 % (0-4); POLYS (SEG NEUTROPHILS) 19 % (16-70); WBC DIFF SAMPLE 100
[2016-08-13 19:27] LABS: ACANTHOCYTES OCC (NORMAL); PLATELET ESTIMATE SMEAR NORMAL (NORMAL); PLATELET MORPHOLOGY NORMAL (NORMAL); SCAN/DIFF FINAL DIFF MANUAL
[2016-08-13 19:28] LABS: TEARDROP RBCS 1+ (NORMAL)
[2016-08-13 19:30] LABS: NEUTROPHIL # MANUAL DIFF 0.3 TH/MM3 (1.8-7.7)
--- NOTE | 2016-08-13 20:25 | PD ---
Physical Exam Date Seen by Provider: Aug 13, 2016 Time Seen by Provider: 19:30 Narrative I, Dr. Reveles, have reviewed the advance practice practitioner's documentation and am in agreement, met with the patient face to face, made the diagnosis, and the medical decision making was done by me. *My assessment and Findings:Patient initially seen in triage by PA, please see PA note for further information. Laboratory Tests Test 08/13/16 08/13/16 17:59 18:03 White Blood Count 1.4 TH/MM3 (4.0-11.0) Red Blood Count 3.95 MIL/MM3 (4.00-5.30) Hemoglobin 11.5 GM/DL (11.6-15.3) Hematocrit 34.1 % (35.0-46.0) Mean Platelet Volume 6.8 FL (7.0-11.0) Monocytes % 34 % (0-8) Basophils % 5 % (0-2) Neutrophils # (Manual) 0.3 TH/MM3 (1.8-7.7) Tear Drop Cells 1+ (NORMAL) Acanthocytes OCC (NORMAL) Activated Partial 32.7 SEC Thromboplast Time (24.3-30.1) Chloride Level 108 MEQ/L (98-107) Blood Urea Nitrogen 55 MG/DL (7-18) Creatinine 3.29 MG/DL (0.50-1.00) Estimat Glomerular Filtration 14 ML/MIN (>89) Rate Random Glucose 71 MG/DL (74-106) Aspartate Amino Transf 13 U/L (15-37) (AST/SGOT) Total Protein 8.3 GM/DL (6.4-8.2) Urine Occult Blood LARGE (NEG) Urine RBC 42 /hpf (0-3) Urine Bacteria FEW /hpf (NONE) Urine Mucus FEW /lpf (OCC) GENERAL: Well-nourished, well-developed pleasant elderly white female patient in no acute distress. Awake and oriented 3. SKIN: Warm and dry. HEAD: Normocephalic. EYES: No scleral icterus. No injection or drainage. NECK: Supple, trachea midline. CARDIOVASCULAR: Regular rate and rhythm without murmurs, gallops, or rubs. RESPIRATORY: Breath sounds equal bilaterally. No accessory muscle use. GASTROINTESTINAL: Abdomen soft, non-tender, nondistended. MUSCULOSKELETAL: No cyanosis, or edema. BACK: Nontender without obvious deformity. No CVA tenderness. Left arm: AV fistula in place with good bruits and pulses. After lab work returned, case was discussed with Dr. Porras, Dr. Villar's partner, and he discussed the case with Dr. Villar. Case was also discussed with Dr. Chance, patient's hand molder and caster, and Dr. Chance did not feel the patient needed dialysis based on her current GFR 14. According to Dr. Villar, he center in because patient had been complaining of itchiness and fatigue. He states he would defer whether the patient needed dialysis and permacath to Dr. Chance. At this point, I have discussed the conversation with patient and family and have also noted that she has neutropenia which is critically low today. She has had history of neutropenia in the past. She is not running fevers or otherwise feeling badly according to her and family. I have talked to her regarding the findings and have offered to admit her for further evaluation and treatment. However, after consideration, patient states that she does not want to come into the hospital and would rather follow-up with her physicians as an outpatient. Patient also has a chemistry technical officer as an outpatient as well. I have noted to both her and family that worsening and symptoms can occur considering her numbers and patient should return for any fevers, lethargy , or new issues. The risks have been discussed with family and patient and they stated understanding. Data Data Last Documented VS Vital Signs Date Time Temp Pulse Resp B/P Pulse Ox O2 Delivery O2 Flow Rate FiO2 08/13/16 19:09 98.2 65 20 100/54 100 Room Air Orders Complete Blood Count With Diff (08/13/16 17:39) Act Partial Throm Time (Ptt) (08/13/16 17:39) Prothrombin Time / Inr (Pt) (08/13/16 17:39) Comprehensive Metabolic Panel (08/13/16 17:39) Urinalysis - C+S If Indicated (08/13/16 18:01) Labs Laboratory Tests Test 08/13/16 08/13/16 17:59 18:03 White Blood Count 1.4 TH/MM3 Red Blood Count 3.95 MIL/MM3 Hemoglobin 11.5 GM/DL Hematocrit 34.1 % Mean Corpuscular Volume 86.4 FL Mean Corpuscular Hemoglobin 29.0 PG Mean Corpuscular Hemoglobin 33.6 % Concent Red Cell Distribution Width 15.4 % Platelet Count 336 TH/MM3 Mean Platelet Volume 6.8 FL Neutrophils (%) (Auto) % Lymphocytes (%) (Auto) % Monocytes (%) (Auto) % Eosinophils (%) (Auto) % Basophils (%) (Auto) % Neutrophils # (Auto) TH/MM3 Lymphocytes # (Auto) TH/MM3 Monocytes # (Auto) TH/MM3 Eosinophils # (Auto) TH/MM3 Basophils # (Auto) TH/MM3 CBC Comment AUTO DIFF Differential Total Cells 100 Counted Neutrophils % (Manual) 19 % Band Neutrophils % 3 % Lymphocytes % 38 % Monocytes % 34 % Eosinophils % 1 % Basophils % 5 % Neutrophils # (Manual) 0.3 TH/MM3 Differential Comment FINAL DIFF MANUAL Platelet Estimate NORMAL Platelet Morphology Comment NORMAL Tear Drop Cells 1+ Acanthocytes OCC Prothrombin Time 11.0 SEC Prothromb Time International 1.0 RATIO Ratio Activated Partial 32.7 SEC Thromboplast Time Sodium Level 140 MEQ/L Potassium Level 5.0 MEQ/L Chloride Level 108 MEQ/L Carbon Dioxide Level 23.6 MEQ/L Anion Gap 8 MEQ/L Blood Urea Nitrogen 55 MG/DL Creatinine 3.29 MG/DL Estimat Glomerular Filtration 14 ML/MIN Rate Random Glucose 71 MG/DL Calcium Level 9.2 MG/DL Total Bilirubin 0.4 MG/DL Aspartate Amino Transf 13 U/L (AST/SGOT) Alanine Aminotransferase 12 U/L (ALT/SGPT) Alkaline Phosphatase 104 U/L Total Protein 8.3 GM/DL Albumin 3.7 GM/DL Urine Color LIGHT-YELLOW Urine Turbidity CLEAR Urine pH 5.0 Urine Specific [place] 1.005 Urine Protein TRACE mg/dL Urine Glucose (UA) NEG mg/dL Urine Ketones NEG mg/dL Urine Occult Blood LARGE Urine Nitrite NEG Urine Bilirubin NEG Urine Urobilinogen LESS THAN 2.0 MG/DL Urine Leukocyte Esterase NEG Urine RBC 42 /hpf Urine WBC 1 /hpf Urine Squamous Epithelial <1 /hpf Cells Urine Bacteria FEW /hpf Urine Mucus FEW /lpf Microscopic Urinalysis Comment CULT NOT INDICATED MDM Medical Record Reviewed: Yes Supervised Visit with USHA: No Diagnosis Primary Impression: Neutropenia Additional Impression: Chronic kidney disease Disposition: 01 DISCHARGE HOME Condition: Stable Florencio Reveles MD Aug 13, 2016 20:25
[2016-09-17] MEDS ORDERED: OXYGEN NAS.CANULA (15:14)
[2016-09-17] MEDS ORDERED: OXYGENTANK NAS.CANULA (15:15)
== END 2016-08-13 21:20 | disposition home or self-care (01) ==
LOC: NEPE 14:27
DX: D70.9 Neutropenia, unspecified (principal); N18.6 End stage renal disease; I12.0 Hypertensive chronic kidney disease with stage 5 chronic kidney disease or end stage renal disease; L29.9 Pruritus, unspecified; I25.2 Old myocardial infarction; Z72.0 Tobacco use; Z79.82 Long term (current) use of aspirin; Z87.09 Personal history of other diseases of the respiratory system; Z85.118 Personal history of other malignant neoplasm of bronchus and lung; Z86.59 Personal history of other mental and behavioral disorders; Z87.19 Personal history of other diseases of the digestive system
CPT/HCPCS: 80053; 81001; 85007; 85027; 85610; 85730; 99283

== ENCOUNTER → 2016-08-31 | Outpatient (CLI) | payer MEDICARE ==
[~2016-08-31] MED LIST changes: +ASPI81CH CHEW; +CALC667C PO; +CLIN1CAP6 PO; +FLUO1TAB3 PO; +FLUO20CA4 PO; +GUAI10TA PO; +HYDR-3288 PO; -LEVA250T PO; +LIDO1CRE31 TOPICAL; +MIDO10TA PO; +MIDO5TAB PO; +OXYGEN NAS.CANULA; +OXYGENTANK NAS.CANULA; -REST15CA PO; +TUMS500C CHEW; +VITA2000 PO
[2016-08-31 13:36] LABS: HEMATOCRIT 32.4 % (35.0-46.0); MEAN CELL VOLUME 85.3 FL (80.0-100.0); MEAN CORPUSCULAR HEMOGLOBIN 28.7 PG (27.0-34.0); MEAN CORPUSCULAR HGB CONC 33.7 % (32.0-36.0); PLATELET COUNT 266 TH/MM3 (150-450); RED CELL DISTRIBUTION WIDTH 14.8 % (11.6-17.2); REVIEW FLAG FINAL; WHITE BLOOD COUNT 6.5 TH/MM3 (4.0-11.0)
[2016-08-31 14:08] LABS: BICARBONATE 20.8 MEQ/L (21.0-32.0); POTASSIUM 4.9 MEQ/L (3.5-5.1)
== END ==
LOC: PLAB 10:58
PROVIDERS: ATTEND Internal Medicine Nephrology
DX: I12.9 Hypertensive chronic kidney disease with stage 1 through stage 4 chronic kidney disease, or unspecified chronic kidney disease (principal); N18.5 Chronic kidney disease, stage 5
CPT/HCPCS: 36415; 80069; 85027

== ENCOUNTER → 2016-09-17 | Outpatient (CLI) | payer MEDICARE ==
[~2016-09-17] MED LIST changes: +CEFU1TAB20 PO; +HEPA10003 SQ; +VENTAER INH; +WALKER/ADULT/FO1 MIS
[2016-09-17 14:02] LABS: PROTHROMBIN TIME - PATIENT 10.7 SEC (9.8-11.6)
[2016-09-17 14:14] LABS: BICARBONATE 19.7 MEQ/L (21.0-32.0)
[2016-09-17 14:21] LABS: HEMATOCRIT 32.4 % (35.0-46.0); MEAN CELL VOLUME 86.5 FL (80.0-100.0); MEAN CORPUSCULAR HEMOGLOBIN 28.3 PG (27.0-34.0); MEAN CORPUSCULAR HGB CONC 32.7 % (32.0-36.0); PLATELET COUNT 263 TH/MM3 (150-450); RED BLOOD COUNT 3.75 MIL/MM3 (4.00-5.30); RED CELL DISTRIBUTION WIDTH 15.3 % (11.6-17.2); WHITE BLOOD COUNT 1.9 TH/MM3 (4.0-11.0)
[2016-09-17 14:25] LABS: REVIEW FLAG FINAL
[2016-09-17 14:49] LABS: BACTERIA, URINE RARE /hpf; BLOOD, URINE MOD (NEG); COMMENT (UR) CULT NOT INDICATED; CULTURE IF INDICATED CULT NOT INDICATED; GLUCOSE,URINE NEG (NEG); KETONE, URINE NEG (NEG); MUCUS URINE FEW /lpf (OCC); NITRITE,URINE NEG (NEG); SQUAMOUS EPITHELIAL CELL URINE 1 /hpf (0-5); URINE COLOR LIGHT-YELLOW (YELLW/STRAW)
== END ==
LOC: CPRE 13:16
PROVIDERS: ATTEND Surgery
DX: Z01.812 Encounter for preprocedural laboratory examination (principal); N18.6 End stage renal disease
CPT/HCPCS: 36415; 80048; 81001; 85027; 85610

== ENCOUNTER 2016-09-24 06:36 | Observation (INO) | payer MEDICARE ==
[~2016-09-24] VITALS: Ht 165.1 cm; Wt 59.0 kg
[~2016-09-24 06:36] MED LIST changes: -ASPI81CH CHEW; -CALC667C PO; -CEFU1TAB20 PO; -CLIN1CAP6 PO; -FLUO1TAB3 PO; -FLUO20CA4 PO; -GUAI10TA PO; -HEPA10003 SQ; -HYDR-3288 PO; -LIDO1CRE31 TOPICAL; -MIDO10TA PO; -MIDO5TAB PO; -NICO21DI6 T-DERMAL; -OXYGEN NAS.CANULA; -TUMS500C CHEW; -VENTAER INH; -VITA2000 PO; -WALKER/ADULT/FO1 MIS
[2016-09-24 07:10] VITALS: BP 93/43; PULSE 77; RESP 20; TEMP 97.5; O2SAT 97
[2016-09-24] MEDS ORDERED: RESP: ALBUTEROL 2.5 MG/IPRATROPIUM 0.5 MG NEB (SCH) ONE (07:27)
[2016-09-24] MEDS ORDERED: SODIUM CHLORID 0.9% 500 ML IV PRN (07:30)
[2016-09-24] MEDS ORDERED: METOPROLOL TARTRATE 25 MG TAB PO PRN (07:30)
[2016-09-24] MEDS ORDERED: INSULIN HUMAN REGULAR 1,000 UNITS/10 ML VIAL SQ PRN (07:30)
[2016-09-24] MEDS ORDERED: LACTATED RINGER'S 1000 ML IV PRN (07:30)
[2016-09-24] MEDS ORDERED: POVIDONE IODINE 5% (ANTISEPSIS KIT) 4 APPLICATIONS EACH NARE PRN (07:30)
[2016-09-24] MEDS ORDERED: CHLORHEXIDINE GLUCONATE 2 % 1 PACK (2 CLOTHS) TOPICAL PRN (07:30)
[2016-09-24] MEDS ORDERED: methylPREDNISolone SOD SUCC 125 MG/2 ML VIAL ONE (07:59)
[2016-09-24] MEDS ORDERED: MIDAZOLAM HCL 2 MG/2 ML VIAL ONE (08:02)
[2016-09-24] MEDS ORDERED: FAMOTIDINE 20 MG/2 ML VIAL ONE (08:02)
--- NOTE | 2016-09-24 08:22 | PD.VS.PN ---
Pre-operative Note Pre-operative diagnosis: Near ESRD, need for HD access Planned procedure: L UE access revision (2nd stage brachiobasilic AVF) Interval History: Pt has been feeling well over past days. No N/V/F/C/CP. Labs: Hct 31 plt 337 K 5.0 eGFR 13 Blood: T&S Orders: NPO Ancef OCTOR Post-operative destination: PACU, [facility] Operative site marked: Yes Consent: Informed consent has been obtained from Allie Hylton. I have explained the procedure in detail and discussed the risks, benefits, and potential complications. All questions have been answered. Patient contact information: Daughter ([phone]) Eric Villar MD Sep 24, 2016 08:22
[2016-09-24] MEDS ORDERED: HEPARIN SODIUM - IV 10,000 UNITS/10 ML VIAL ONE (08:33)
[2016-09-24] MEDS ORDERED: BUPIVACAINE HCL PF 0.25% 30 ML VIAL ONE (08:33)
[2016-09-24] MEDS ORDERED: ceFAZolin INJ 1,000 MG VIAL IV ONE (08:47)
[2016-09-24] MEDS: DOCUSATE SODIUM 100 MG CAP PO SCH ×2 (09:00→20:13)
[2016-09-24] MEDS ORDERED: PANTOPRAZOLE SOD 40 MG DELAYED RELEASE TAB PO SCH (09:00)
[2016-09-24] MEDS: ASPIRIN EC 81 MG TABEC PO SCH (09:00)
[2016-09-24] MEDS ORDERED: HEPARIN SODIUM - IV 10,000 UNITS/10 ML VIAL IV ONE (09:22)
--- NOTE | 2016-09-24 10:05 | HHI.PR ---
cc: Oscar Jurado MD Immediate Post Op Note Procedure Date: Sep 24, 2016 Pre Op Diagnosis: near ESRD, need for 2nd stage AVF Post Op Diagnosis: near ESRD, need for 2nd stage AVF Surgeon: Eric Villar Loop Cutter(s): none Procedure: L UE access revision (transposition of basilic vein) Findings: 5-6m vein, small artery + thrill after AVF Additional Information: poor radial and ulnar signals after AVF Complications: none apparent Specimen(s) removed: none Estimated blood loss: 50 mL Anesthesia: LMA Drains: None Fluids: 500 mL IVF Patient to: PACU Patient Condition: Good Implant/Devices: SEE IMPLANT LOG (if applicable) Date/Time of Procedure: SEE SURGICAL CARE RECORD Eric Villar MD Sep 24, 2016 10:05
[2016-09-24] MEDS ORDERED: *HYDROmorphone PF 1 MG VIAL PERIprocedural Use ONLY ONE ×2 (10:32→10:58)
--- NOTE | 2016-09-24 10:57 | PD.CONS ---
HPI Service Nephrology Consult Requested By Dr. Villar Reason for Consult CKD Stage 5 Primary Care Physician Mera Chavarria MD History of Present Illness Patient is a 65 year old with CKD stage 5, hx of lung ca in for AVF repositioning Review of Systems Constitutional: COMPLAINS OF: Fatigue Musculoskeletal: COMPLAINS OF: Muscle aches Past Family Social History Allergies: Coded Allergies: Morphine (Verified Allergy, Severe, "FOG", 09/24/16) Cipro (Verified Allergy, Unknown, 08/13/16) Codeine (Verified Allergy, Unknown, Vertigo, 09/24/16) Past Medical History CKd stage 5 Lung Ca Low WBC HTN Past Surgical History AVF Lung Tubal ligation Cholecystectomy Reported Medications Reported Meds & Active Scripts Active Reported Oxygen tank (Oxygen) 1 Ea Tank 2 Liter EDUARDO.CANCloudjut[employer] HS Oxygen Concentrator Portable Gaseous 2 L/min via Nasal Cannula Continuous For 99 months Duoneb (Ipratropium-Albuterol Neb) 0.5-2.5 Mg/3 Ml Neb 1 Nebule INH Q6HR NEB Alprazolam 0.5 Mg Tab 1 Mg PO BID Aspirin 81 (Aspirin) 81 Mg Tabdr 81 Mg PO DAILY Famotidine 20 Mg Tab 20 Mg PO DAILY Docusate Sodium 100 Mg Cap 100 Mg PO BID Vitamin D3 (Cholecalciferol) 2,000 Unit Tab 2,000 Units PO DAILY Spiriva Handihaler (Tiotropium Inh) 18 Mcg Cap 18 Mcg INH DAILY 1 capsule = 18 mcg Tolterodine (Tolterodine Tartrate) 1 Mg Tab 1 Mg PO DAILY Symbicort Inh (Budesonide/Formoterol Fumarate) 160-4.5 Mcg/Act Aero 2 Puff INH Q12HR Mucinex ER 12 HR (Guaifenesin) 600 Mg Melania 600 Mg PO BID Oxycodone Hydrochloride (Oxycodone HCl) 5 Mg Cap 10 Mg PO Q6HR PRN Gabapentin 100 Mg Cap 100 Mg PO TID Family History noncontributory Social History previous smoker Physical Exam Vital Signs Vital Signs Date Time Temp Pulse Resp B/P Pulse Ox O2 Delivery O2 Flow Rate FiO2 09/24/16 10:25 97.5 69 18 123/79 97 Nasal Cannula 2 09/24/16 07:10 97.5 77 20 93/43 97 Physical Exam GENERAL: Well-nourished, well-developed patient. SKIN: Warm and dry. HEAD: Normocephalic. EYES: No scleral icterus. No injection or drainage. NECK: Supple, trachea midline. No JVD or lymphadenopathy. CARDIOVASCULAR: Regular rate and rhythm without murmurs, gallops, or rubs. RESPIRATORY: Breath sounds equal bilaterally. No accessory muscle use. GASTROINTESTINAL: Abdomen soft, non-tender, nondistended. EXTREMITIES: No cyanosis, or edema. NEUROLOGICAL: Awake, alert, and oriented x 3. Non-focal. Assessment and Plan Problem List: (1) Chronic kidney disease Plan: s/p AVF repositioning follow labs she was suppose to start hemodialysis as an out patient once her AVF is cleared for use. (2) Neutropenia Plan: monitor Problem Qualifiers (1) Chronic kidney disease: Qualified Code: N18.5 - Chronic kidney disease, stage 5 Oscar Jurado MD Sep 24, 2016 10:57
--- NOTE | 2016-09-24 11:50 | RADRPT ---
EXAM DATE/TIME: 09/24/2016 11:29 [facility] COMPARISON: CHEST SINGLE AP, July 31, 2016, 5:33. INDICATIONS : Hemoptysis. Post op MEDICAL HISTORY : None. SURGICAL HISTORY : None. ENCOUNTER: Initial ACUITY: 1 day PAIN SCORE: Non-responsive. LOCATION: Bilateral chest FINDINGS: A single view of the chest demonstrates stable airspace disease in the left lower lung field. Right l bernard is grossly clear appearance is normal. Osseous structures are intact. CONCLUSION: Stable airspace process in the left lower lung field. Daren Crabtree MD on September 24, 2016 at 11:47 Board Certified Radiologist. This report was verified electronically.
[2016-09-24] MEDS ORDERED: ONDANSETRON HCL 4 MG/2 ML VIAL IV PUSH ONE (12:00)
[2016-09-24] MEDS: BUDESONIDE-FORMOTEROL 160/4.5 MCG INHALER INH SCH ×2 (12:00→20:14)
[2016-09-24] MEDS ORDERED: ePHEDrine/NS 25 MG/5 ML SYR IV ONE (12:00)
[2016-09-24] MEDS: TIOTROPIUM BROMIDE 18 MCG INH INH SCH (12:00)
[2016-09-24] MEDS ORDERED: MIDAZOLAM HCL 2 MG/2 ML VIAL IV ONE (12:00)
[2016-09-24] MEDS ORDERED: PROPOFOL 200 MG/20 ML AMP IV ONE (12:00)
[2016-09-24] MEDS: RESP: ALBUTEROL 2.5 MG/IPRATROPIUM 0.5 MG NEB (SCH) INH ×2 (12:00→22:08)
[2016-09-24] MEDS ORDERED: SODIUM CHLORID 0.9% 500 ML INJ 1,000 ML IV ONE (12:00)
[2016-09-24] MEDS: ALPRAZolam 1 MG TAB PO SCH ×2 (12:00→20:13)
[2016-09-24] MEDS ORDERED: PHENYLEPH/NS 1000 MCG/10 ML SYR IV ONE (12:00)
--- NOTE | 2016-09-24 12:17 | RADRPT ---
EXAM DATE/TIME: 09/24/2016 11:14 [facility] COMPARISON: US KIDNEY/RENAL/BLADDER, July 24, 2016, 21:08. INDICATIONS : PreOp for distal revascularization-interval ligation. MEDICAL HISTORY : Hypertension. Myocardial infarction. Hepatitis C. Brain aneurysm. Hypotension. COPD. Pneumonia. End s tage renal disease. Osteoarthritis. Diabetes. Lung cancer. GERD. SURGICAL HISTORY : Cholecystectomy. Cardiac catheterization. Tubal ligation. Achilles tendon surgery. ENCOUNTER: Initial ACUITY: 1 day PAIN SCORE: Non-responsive LOCATION: Bilateral legs. TECHNIQUE: Venous ultrasound of the left and right leg was performed from the inguinal ligament to the proximal calf. Real-time, color Doppler and spectral tracing, compression and augmentation techniques were us ed. FINDINGS: RIGHT LEG: There is normal compressibility of the deep venous system from the inguinal region to the proximal ca lf. No echogenic clot is seen in the lumen of the common femoral, femoral, popliteal, and posterior tibial veins. There is a normal response of the venous system to proximal and distal augmentation an d respiration. LEFT LEG: There is normal compressibility of the deep venous system from the inguinal region to the proximal ca lf. No echogenic clot is seen in the lumen of the common femoral, femoral, popliteal, and posterior tibial veins. There is a normal response of the venous system to proximal and distal augmentation an d respiration. CONCLUSION: 1. No DVT identified. Shaheed Sheets MD on September 24, 2016 at 12:15 Board Certified Radiologist. This report was verified electronically.
--- NOTE | 2016-09-24 12:18 | RADRPT ---
EXAM DATE/TIME: 09/24/2016 11:22 [facility] COMPARISON: US LEG BILATERAL VENOUS DOPPLER, September 24, 2016, 11:14. INDICATIONS : PreOp for distal revascularization-interval ligation. MEDICAL HISTORY : Hypertension. Myocardial infarction. Hepatitis C. Brain aneurysm. Hypotension. COPD. Pneumonia. End s tage renal disease. Osteoarthritis. Diabetes. Lung cancer. GERD. SURGICAL HISTORY : Cholecystectomy. Cardiac catheterization. Tubal ligation. Achilles tendon surgery. ENCOUNTER: Initial ACUITY: 1 day PAIN SCORE: Non-responsive LOCATION: Bilateral legs. GREATER SAPHENOUS VEIN THIGH: PROXIMAL: Right 4 mm Left 4 mm MID: Right 4 mm Left 4 mm DISTAL: Right 3 mm Left 3 mm CALF: PROXIMAL: Right 3 mm Left 3 mm MID: Right 3 mm Left 2 mm DISTAL: Right 2 mm Left 2 mm FINDINGS: The venous system of the lower extremities are patent by color Doppler imaging. Measurements of the leg veins (in mm) are listed above. CONCLUSION: 1. Measurements of the greater saphenous system are listed above. 2. No DVT identified within the deep system. Shaheed Sheets MD on September 24, 2016 at 12:15 Board Certified Radiologist. This report was verified electronically.
--- NOTE | 2016-09-24 13:17 | PD.VS.PN ---
Subjective POD #: 0 Procedure(s): L UE access revision (transposition of basilic vein) Subjective/Hospital Course pt notes + back pain and inability to urinate, otherwise ok No hand pain Objective Vitals/I&O Date Time Temp Pulse Resp B/P Pulse Ox O2 Delivery O2 Flow Rate FiO2 09/24/16 11:45 74 16 104/50 96 Nasal Cannula 2 09/24/16 11:30 69 16 96/49 95 Nasal Cannula 2 09/24/16 11:15 77 16 95/46 95 Nasal Cannula 2 09/24/16 11:00 70 16 120/69 95 Nasal Cannula 2 09/24/16 10:45 75 16 108/58 95 Nasal Cannula 2 09/24/16 10:25 97.5 69 18 123/79 97 Nasal Cannula 2 09/24/16 07:10 97.5 77 20 93/43 97 09/24/16 09/24/16 09/24/16 07:00 15:00 23:00 Intake Total 500 ml Output Total 50 ml Balance 450 ml Exam: L UE ecchymotic + thrill Hand with 5/5 strength Assessment and Plan Plan 1. BMP pending today 2. BMP in a.m. 3. Appreciate nephrology c/s 4. F/U CXR and UA Eric Villar MD Sep 24, 2016 13:17
[2016-09-24] MEDS: HYDROmorphone HCL 2 MG TAB PO PRN ×2 (15:22→20:14)
[2016-09-24] MEDS: guaiFENesin E.R. 600 MG TAB PO SCH ×2 (15:22→20:13)
[2016-09-24] MEDS: FAMOTIDINE 20 MG TAB PO SCH (15:22)
[2016-09-24 16:00] VITALS: BP 96/51; PULSE 70; RESP 14; TEMP 95.7; O2SAT 96
[2016-09-24] MEDS: GABAPENTIN 100 MG CAP PO SCH (17:18)
[2016-09-24] MEDS: NICOTINE 21 MG/24 HR PATCH T-DERMAL SCH (17:19)
[2016-09-24] MEDS: CHOLECALCIFEROL (VIT D3) 1000 UNIT TAB PO SCH (17:46)
[2016-09-24 19:53] VITALS: PULSE 73
[2016-09-24 20:00] VITALS: BP 100/56; PULSE 74; RESP 20; TEMP 97.8; O2SAT 96
[2016-09-24] MEDS: REMOVE OLD NICODERM (NICOTINE) PATCH T-DERMAL SCH (20:13)
[2016-09-24 21:13] LABS: BACTERIA, URINE RARE /hpf; BLOOD, URINE LARGE (NEG); COMMENT (UR) CULT NOT INDICATED; CULTURE IF INDICATED CULT NOT INDICATED; GLUCOSE,URINE NEG (NEG); KETONE, URINE NEG (NEG); MUCUS URINE FEW /lpf (OCC); NITRITE,URINE NEG (NEG); SQUAMOUS EPITHELIAL CELL URINE 1 /hpf (0-5); URINE COLOR LIGHT-YELLOW (YELLW/STRAW)
[2016-09-24 22:08] VITALS: O2SAT 94
[2016-09-24 22:29] LABS: BICARBONATE 17.8 MEQ/L (21.0-32.0)
[2016-09-24 22:33] LABS: POTASSIUM 5.8 MEQ/L (3.5-5.1)
[2016-09-25] VITALS (8 sets, daily range): BP systolic 92–118; BP diastolic 50–78; PULSE 69–79; RESP 17–20; TEMP 97.4–98.4; O2SAT 92–98
[2016-09-25] MEDS: RESP: ALBUTEROL 2.5 MG/IPRATROPIUM 0.5 MG NEB (SCH) INH ×4 (02:30→21:05)
[2016-09-25 05:33] LABS: HEMATOCRIT 30.7 % (35.0-46.0); MEAN CELL VOLUME 86.2 FL (80.0-100.0); MEAN CORPUSCULAR HEMOGLOBIN 28.5 PG (27.0-34.0); PLATELET COUNT 274 TH/MM3 (150-450); RED BLOOD COUNT 3.56 MIL/MM3 (4.00-5.30); RED CELL DISTRIBUTION WIDTH 15.6 % (11.6-17.2); REVIEW FLAG FINAL; WHITE BLOOD COUNT 4.9 TH/MM3 (4.0-11.0)
[2016-09-25 06:06] LABS: BICARBONATE 18.9 MEQ/L (21.0-32.0); POTASSIUM 5.6 MEQ/L (3.5-5.1)
[2016-09-25] MEDS: ALPRAZolam 1 MG TAB PO SCH ×2 (08:53→22:04)
[2016-09-25] MEDS: CHOLECALCIFEROL (VIT D3) 1000 UNIT TAB PO SCH (08:53)
[2016-09-25] MEDS: FAMOTIDINE 20 MG TAB PO SCH (08:53)
[2016-09-25] MEDS: TOLTERODINE TARTRATE 2 MG CAP LA PO SCH (08:53)
[2016-09-25] MEDS: ASPIRIN EC 81 MG TABEC PO SCH (08:53)
[2016-09-25] MEDS: guaiFENesin E.R. 600 MG TAB PO SCH ×2 (08:53→22:04)
[2016-09-25] MEDS: GABAPENTIN 100 MG CAP PO SCH ×3 (08:53→17:11)
[2016-09-25] MEDS: DOCUSATE SODIUM 100 MG CAP PO SCH ×2 (08:53→22:04)
[2016-09-25] MEDS: HYDROmorphone HCL 2 MG TAB PO PRN ×2 (08:53→14:39)
[2016-09-25] MEDS: NICOTINE 21 MG/24 HR PATCH T-DERMAL SCH (08:54)
[2016-09-25] MEDS: REMOVE OLD NICODERM (NICOTINE) PATCH T-DERMAL SCH (08:54)
[2016-09-25] MEDS: BUDESONIDE-FORMOTEROL 160/4.5 MCG INHALER INH SCH ×2 (08:54→22:04)
[2016-09-25] MEDS: TIOTROPIUM BROMIDE 18 MCG INH INH SCH (08:56)
[2016-09-25] MEDS: HEPARIN SODIUM - SQ 10,000 UNITS/ML VIAL SQ SCH ×2 (10:12→17:11)
[2016-09-25 10:40] LABS: BICARBONATE 20.3 MEQ/L (21.0-32.0); POTASSIUM 5.6 MEQ/L (3.5-5.1)
[2016-09-25] MEDS ORDERED: SODIUM POLYSTYRENE SULFONATE SUSP 15 GM/60 ML CUP PO ONE (12:00)
--- NOTE | 2016-09-25 12:57 | PD.VS.PN ---
Subjective POD #: 1 Procedure(s): L UE access revision (transposition of basilic vein) Subjective/Hospital Course Pt sitting up in bed eating breakfast without difficulty Pt c/o back pain times 1 day (thoracic region), she also reported burning sensation while urinating since yesterday No hand pain Objective Vitals/I&O Date Time Temp Pulse Resp B/P Pulse Ox O2 Delivery O2 Flow Rate FiO2 09/25/16 09:34 92 21 09/25/16 08:00 98.4 71 17 92/50 92 09/25/16 04:00 97.4 69 20 118/64 97 09/25/16 00:00 98.0 78 20 112/66 95 09/24/16 22:08 94 21 09/24/16 20:00 97.8 74 20 100/56 96 09/24/16 19:53 73 09/24/16 16:00 95.7 70 14 96/51 96 09/24/16 14:25 72 16 101/51 97 Nasal Cannula 2 09/24/16 13:30 75 16 109/55 97 Nasal Cannula 2 09/25/16 09/25/16 09/25/16 07:00 15:00 23:00 Intake Total 320 ml Output Total 425 ml 22 ml Balance -105 ml -22 ml Exam: Left UE erythema noted LIZBETH drain intact Cardiac- RRR +S1,S2 Resp- Lung sounds clear bilat Neuro-Awake A&OX3, Gcs15 Pulses: Bilat Radial pulses palpable +thrill noted LUE AVF Incisions: LUE incision intact with surgical glue, erythema noted at the incision line, minimal swelling, NO drainage Laboratory Laboratory Tests Test 09/24/16 09/24/16 09/25/16 09/25/16 20:39 21:16 04:40 09:26 Urine Color LIGHT-YELLOW Urine Turbidity CLEAR Urine pH 5.0 Urine Specific [place] 1.008 Urine Protein TRACE Urine Glucose (UA) NEG Urine Ketones NEG Urine Occult Blood LARGE Urine Nitrite NEG Urine Bilirubin NEG Urine Urobilinogen LESS THAN 2.0 Urine Leukocyte Esterase TRACE Urine RBC Urine WBC 4 Urine Squamous Epithelial 1 Cells Urine Bacteria RARE Urine Mucus FEW Microscopic Urinalysis Comment CULT NOT INDICATED Sodium Level 139 139 138 Potassium Level 5.8 5.6 5.6 Chloride Level 112 110 109 Carbon Dioxide Level 17.8 18.9 20.3 Anion Gap 9 10 9 Blood Urea Nitrogen 57 58 58 Creatinine 3.87 3.97 3.79 Estimat Glomerular Filtration 12 11 12 Rate Random Glucose 66 101 79 Calcium Level 8.9 9.0 8.8 White Blood Count 4.9 Red Blood Count 3.56 Hemoglobin 10.1 Hematocrit 30.7 Mean Corpuscular Volume 86.2 Mean Corpuscular Hemoglobin 28.5 Mean Corpuscular Hemoglobin 33.0 Concent Red Cell Distribution Width 15.6 Platelet Count 274 Mean Platelet Volume 6.9 Assessment and Plan Plan Plan Consult Hospitalist for medical complaints LIZBETH drain removed this am Will continue to follow Keyla SHIRLEY [facility] Keyla Nichols Sep 25, 2016 12:57
--- NOTE | 2016-09-25 13:58 | HHI.NPPN ---
Subjective History of Present Illness 65 year old female with CKD 5, near dialysis was admitted for AVF repositioning Additional Remarks c/o back pain Review of Systems General Constitutional: Fatigue Musculoskeletal MS: Pain/Stiffness Objective Data Data 09/24/16 09/25/16 19:00 07:00 Intake Total 700 ml 800 ml Output Total 75 ml 1470 ml Balance 625 ml -670 ml Intake Oral 800 ml Other 700 ml Output Urine Total 1400 ml Drainage Total 25 ml 70 ml Estimated Blood Loss 50 ml # Bowel Movements 0 Vital Signs Date Time Temp Pulse Resp B/P Pulse Ox O2 Delivery O2 Flow Rate FiO2 09/25/16 12:00 98.3 75 17 96/60 93 09/25/16 09:34 92 21 09/25/16 08:00 98.4 71 17 92/50 92 09/25/16 04:00 97.4 69 20 118/64 97 09/25/16 00:00 98.0 78 20 112/66 95 09/24/16 22:08 94 21 09/24/16 20:00 97.8 74 20 100/56 96 09/24/16 19:53 73 09/24/16 16:00 95.7 70 14 96/51 96 09/24/16 14:25 72 16 101/51 97 Nasal Cannula 2 -: 09/25/16 0440 09/25/16 0926 Physical Exam General Appearance: Well Developed Neck Neck Exam: Neck Supple Pulmonary Resp Exam: Clear Bilaterally, Breath Sounds Equal Cardiology CV Exam: Regular, Normal Sinus Rhythm Gastrointestinal/Abdomen GI Exam: Soft, Non-Tender, Bowel Sounds Present Extremeties Extremities Exam: Moderate Edema Extremeties Remarks Left arm, Assessment/Plan Problem List: (1) Chronic kidney disease Plan: s/p AVF repositioning K 5.6 received LR during her surgery stopped Kayexalate ordered GFR 12, once AVF matures then start hemodialysis as out pt check Kidney US for flank pain (2) Neutropenia Plan: resolved Problem Qualifiers (1) Chronic kidney disease: Qualified Code: N18.5 - Chronic kidney disease, stage 5 Oscar Jurado MD Sep 25, 2016 13:58
--- NOTE | 2016-09-25 17:27 | PD.CONS ---
HPI Service [facility] Hospitalists Consult Requested By Dr. Villar Reason for Consult back pain and burning with urination Primary Care Physician Mera Chavarria MD Diagnoses: History of Present Illness Patient is a 65 year old with CKD stage 5 (not yet on HD, is supposed to start once fistula cleared for use), COPD, hx of lung ca, hiatal hernia, CAD, pancreatitis and peptic ulcer disease, HTN and DM diet controlled was admitted under that vascular sx service for in for AVF repositioning. Apparently post procedure pt started experiencing pain in the epigastric region w radiation to the back. This started yesterday post surgery. Pt states that movement makes it worst. Post sx pain was a 10/10 but when I evaluated the pt today, the pain was around a 5/10. Pt wonders if that has anything to do w her hiatal hernia. When asked if she ever had a hx of stomach ulcers she tells me yes. She doesn't think her pain is associated w food. She also tells me that in the past she had pancreatitis. She tells me that she still makes some urine but it gamez whenever she urinates. no fevers or chills. she didn't have any diaphoresis, nausea or vomiting associated w the pain. She tells me that the pain comes and goes, only radiates to her back at times. She denies any upper respiratory symptoms. She denies any chest pain. Review of Systems 10 point review of systems neg except those mentioned in the HPI Past Family Social History Allergies: Coded Allergies: Morphine (Verified Allergy, Severe, "FOG", 09/24/16) Cipro (Verified Allergy, Unknown, 08/13/16) Codeine (Verified Allergy, Unknown, Vertigo, 09/24/16) Past Medical History CKD stage 5 on HD, hx of lung ca, hiatal hernia, CAD, pancreatitis and peptic ulcer disease, HTN and DM diet controlled Past Surgical History AVF Lung wedge resection on the left "aneurysm capped" Tubal ligation Cholecystectomy Reported Medications Reported Meds & Active Scripts Active Reported Oxygen tank (Oxygen) 1 Ea Tank 2 Liter EDUARDO.CANULA HS Oxygen Concentrator Portable Gaseous 2 L/min via Nasal Cannula Continuous For 99 months Duoneb (Ipratropium-Albuterol Neb) 0.5-2.5 Mg/3 Ml Neb 1 Nebule INH Q6HR NEB Alprazolam 0.5 Mg Tab 1 Mg PO BID Aspirin 81 (Aspirin) 81 Mg Tabdr 81 Mg PO DAILY Famotidine 20 Mg Tab 20 Mg PO DAILY Docusate Sodium 100 Mg Cap 100 Mg PO BID Vitamin D3 (Cholecalciferol) 2,000 Unit Tab 2,000 Units PO DAILY Spiriva Handihaler (Tiotropium Inh) 18 Mcg Cap 18 Mcg INH DAILY 1 capsule = 18 mcg Tolterodine (Tolterodine Tartrate) 1 Mg Tab 1 Mg PO DAILY Symbicort Inh (Budesonide/Formoterol Fumarate) 160-4.5 Mcg/Act Aero 2 Puff INH Q12HR Mucinex ER 12 HR (Guaifenesin) 600 Mg Melania 600 Mg PO BID Oxycodone Hydrochloride (Oxycodone HCl) 5 Mg Cap 10 Mg PO Q6HR PRN Gabapentin 100 Mg Cap 100 Mg PO TID Family History mother had leukemia father had cirrhosis of the liver brother had lung cancer and sister had breast cancer Social History has been smoking since the age of 16, cut down to 15 cigs a day denies any alcohol use or illegal drug use Physical Exam Vital Signs Vital Signs Date Time Temp Pulse Resp B/P Pulse Ox O2 Delivery O2 Flow Rate FiO2 09/25/16 12:00 98.3 75 17 96/60 93 09/25/16 09:34 92 21 09/25/16 08:00 98.4 71 17 92/50 92 09/25/16 04:00 97.4 69 20 118/64 97 09/25/16 00:00 98.0 78 20 112/66 95 09/24/16 22:08 94 21 09/24/16 20:00 97.8 74 20 100/56 96 09/24/16 19:53 73 Physical Exam GENERAL: This is a well-nourished, well-developed patient, in no apparent distress. SKIN: ecchymoses noted on the left upper extremity, incision healing well. Cool and dry. HEAD: Atraumatic. Normocephalic. No temporal or scalp tenderness. EYES: Pupils equal round and reactive. Extraocular motions intact. No scleral icterus. No injection or drainage. ENT: Nose without drainage. Throat without erythema, tonsillar hypertrophy or exudate. Uvula midline. Airway patent. NECK: Trachea midline. No JVD or lymphadenopathy. CARDIOVASCULAR: Regular rate and rhythm without murmurs RESPIRATORY: Clear to auscultation. Breath sounds equal bilaterally. No wheezes GASTROINTESTINAL: Abdomen soft, tender in the epigastric region mainly but some discomfort in the lower quadrants but no rebound or guarding, nondistended. No palpable masses.no CVA tenderness MUSCULOSKELETAL: Motor and sensory grossly within normal limits. Five out of 5 muscle strength in all muscle groups. Normal speech. NEUROLOGICAL: Awake and alert. Cranial nerves II through XII intact. Laboratory Laboratory Tests Test 09/24/16 09/24/16 09/25/16 09/25/16 20:39 21:16 04:40 09:26 Urine Color LIGHT-YELLOW Urine Turbidity CLEAR Urine pH 5.0 Urine Specific [place] 1.008 Urine Protein TRACE Urine Glucose (UA) NEG Urine Ketones NEG Urine Occult Blood LARGE Urine Nitrite NEG Urine Bilirubin NEG Urine Urobilinogen LESS THAN 2.0 Urine Leukocyte Esterase TRACE Urine RBC Urine WBC 4 Urine Squamous Epithelial 1 Cells Urine Bacteria RARE Urine Mucus FEW Microscopic Urinalysis Comment CULT NOT INDICATED Sodium Level 139 139 138 Potassium Level 5.8 5.6 5.6 Chloride Level 112 110 109 Carbon Dioxide Level 17.8 18.9 20.3 Anion Gap 9 10 9 Blood Urea Nitrogen 57 58 58 Creatinine 3.87 3.97 3.79 Estimat Glomerular Filtration 12 11 12 Rate Random Glucose 66 101 79 Calcium Level 8.9 9.0 8.8 White Blood Count 4.9 Red Blood Count 3.56 Hemoglobin 10.1 Hematocrit 30.7 Mean Corpuscular Volume 86.2 Mean Corpuscular Hemoglobin 28.5 Mean Corpuscular Hemoglobin 33.0 Concent Red Cell Distribution Width 15.6 Platelet Count 274 Mean Platelet Volume 6.9 Result Diagram: 09/25/16 0440 09/25/16 0926 Imaging Last Impressions Lower Extremity Ultrasound 09/24/16 0000 Signed Impressions: Service Date/Time: Saturday, September 24, 2016 11:14 - CONCLUSION: 1. No DVT identified. Shaheed Sheets MD Chest X-Ray 09/24/16 0000 Signed Impressions: Service Date/Time: Saturday, September 24, 2016 11:29 - CONCLUSION: Stable airspace process in the left lower lung field. Daren Crabtree MD Assessment and Plan Assessment and Plan s/p L UE access revision (transposition of basilic vein) POD #1. Management per primary team Epigastric pain w radiation to the back. hx of pancreatitis, hiatal hernia and ? stomach ulcers in the past. Will check LFTs, lipase levels. Will consult GI for further eval as this does seem more a GI problem versus . continue pain management per vascular sx. on colace for bowel regimen Pt does make some urine and has some burning w urination. U/A was reviewed and not too convincing for a UTI. Pt has no fevers or chills. Nephrology ordered renal u/s and will f/u results. Pt didn't have any CVA tenderness on exam. COPD: uses 2L at bedtime, will resume Thank you for allowing me to take part of Mr.s Hylton's care, I will continue to follow. Code Status full Discussed Condition With Pt and family member Taryn Holden MD Sep 25, 2016 17:27
[2016-09-25 17:30] LABS: TOTAL BILIRUBIN ADULT 0.3 MG/DL (0.2-1.0)
[2016-09-25 17:32] LABS: INDIRECT BILIRUBIN 0.2 MG/DL (0.0-0.8)
--- NOTE | 2016-09-25 22:19 | RADRPT ---
EXAM DATE/TIME: 09/25/2016 18:43 [facility] COMPARISON: US KIDNEY/RENAL/BLADDER, July 24, 2016, 21:08. INDICATIONS : Flank pain. MEDICAL HISTORY : Myocardial infarction. Osteoarthritis. Hernia, hiatal. Carcinoma, lung. Brain aneurysm. Chest pain. C OPD. HTN. Diabetes. Hep C. Pneumonia. GERD. ESRD. Anticoagulant therapy, Aspirin. Depression. Anxiety . SURGICAL HISTORY : Cholecystectomy. Tubal ligation. Brain aneurysm with stent. Cardiac cath. Achilles tendon surgery. Radiation therapy. ENCOUNTER: Subsequent ACUITY: 2 days PAIN SCORE: 10/10 LOCATION: Bilateral flank MEASUREMENTS: RIGHT KIDNEY: 8.3 x 4.0 x 4.0 cm LEFT KIDNEY: 10.7 x 4.3 x 4.5 cm FINDINGS: RIGHT KIDNEY: Renal cortex is normal in thickness and echotexture. No hydronephrosis, stone, or mass. LEFT KIDNEY: Renal cortex is normal in thickness and echotexture. No hydronephrosis, stone, or mass. BLADDER: Within normal limits given the degree of distension. CONCLUSION: The right kidney is smaller than the left. No evidence of mass or hydronephrosis. Claudy Denis MD on September 25, 2016 at 22:16 Board Certified Radiologist. This report was verified electronically.
[2016-09-26] VITALS (7 sets, daily range): BP systolic 88–112; BP diastolic 43–62; PULSE 71–77; RESP 14–20; TEMP 96.7–98.2; O2SAT 95–98
[2016-09-26] MEDS: HEPARIN SODIUM - SQ 10,000 UNITS/ML VIAL SQ SCH ×2 (03:09→10:43)
[2016-09-26] MEDS: RESP: ALBUTEROL 2.5 MG/IPRATROPIUM 0.5 MG NEB (SCH) INH ×3 (05:01→16:00)
[2016-09-26 05:49] LABS: AUTOMATED NEUTROPHIL # 1.7 TH/MM3 (1.8-7.7); BASOPHIL # 0.1 TH/MM3 (0-0.2); BASOPHIL % 1.3 % (0.0-2.0); EOSINOPHIL # 0.3 TH/MM3 (0-0.4); EOSINOPHIL % 8.9 % (0.0-4.0); HEMATOCRIT 29.4 % (35.0-46.0); HEMO FLAGS DIFF FINAL; LYMPH % 15.5 % (9.0-44.0); LYMPHOCYTE # 0.6 TH/MM3 (1.0-4.8); MEAN CELL VOLUME 85.2 FL (80.0-100.0); MEAN CORPUSCULAR HEMOGLOBIN 28.1 PG (27.0-34.0); MEAN CORPUSCULAR HGB CONC 32.9 % (32.0-36.0); MONO % 31.1 % (0.0-8.0); NEUT % 43.2 % (16.0-70.0); PLATELET COUNT 249 TH/MM3 (150-450); RED BLOOD COUNT 3.45 MIL/MM3 (4.00-5.30); RED CELL DISTRIBUTION WIDTH 14.6 % (11.6-17.2); WHITE BLOOD COUNT 3.9 TH/MM3 (4.0-11.0)
[2016-09-26 06:10] LABS: ALT (GPT) 8 U/L (10-53); ANION GAP 9 MEQ/L (5-15); AST (GOT) 14 U/L (15-37); BICARBONATE 21.5 MEQ/L (21.0-32.0); BLOOD UREA NITROGEN 57 MG/DL (7-18); CHLORIDE 109 MEQ/L (98-107); GLOMERULAR FILTRATION RATE 11 ML/MIN (>89); POTASSIUM 5.2 MEQ/L (3.5-5.1); SODIUM (NA) 139 MEQ/L (136-145)
[2016-09-26 06:12] LABS: ALKALINE PHOSPHATASE 104 U/L (45-117); INDIRECT BILIRUBIN 0.2 MG/DL (0.0-0.8); TOTAL BILIRUBIN ADULT 0.3 MG/DL (0.2-1.0)
[2016-09-26] MEDS: TIOTROPIUM BROMIDE 18 MCG INH INH SCH (09:00)
[2016-09-26] MEDS: BUDESONIDE-FORMOTEROL 160/4.5 MCG INHALER INH SCH (09:00)
[2016-09-26] MEDS: ALPRAZolam 1 MG TAB PO SCH (09:10)
[2016-09-26] MEDS: guaiFENesin E.R. 600 MG TAB PO SCH (09:10)
[2016-09-26] MEDS: FAMOTIDINE 20 MG TAB PO SCH (09:10)
[2016-09-26] MEDS: DOCUSATE SODIUM 100 MG CAP PO SCH (09:11)
[2016-09-26] MEDS: ASPIRIN EC 81 MG TABEC PO SCH (09:11)
[2016-09-26] MEDS: GABAPENTIN 100 MG CAP PO SCH ×2 (09:12→12:56)
[2016-09-26] MEDS: CHOLECALCIFEROL (VIT D3) 1000 UNIT TAB PO SCH (09:12)
[2016-09-26] MEDS: TOLTERODINE TARTRATE 2 MG CAP LA PO SCH (09:12)
[2016-09-26] MEDS: NICOTINE 21 MG/24 HR PATCH T-DERMAL SCH (09:13)
--- NOTE | 2016-09-26 09:38 | HHI.NPPN ---
Subjective History of Present Illness 65 year old female with CKD 5, near dialysis was admitted for AVF repositioning Additional Remarks feels better epigastric pain resolved/ back pain better Review of Systems General Constitutional: Fatigue Musculoskeletal MS: Pain/Stiffness Objective Data Data 09/25/16 09/26/16 18:59 06:59 Intake Total 240 ml 480 ml Output Total 522 ml 200 ml Balance -282 ml 280 ml Intake Oral 240 ml 480 ml IV Total 0 ml Output Urine Total 500 ml 200 ml Drainage Total 22 ml # Voids 2 # Bowel Movements 0 Vital Signs Date Time Temp Pulse Resp B/P Pulse Ox O2 Delivery O2 Flow Rate FiO2 09/26/16 08:00 97.7 75 14 91/53 95 98/56 09/26/16 07:35 98 21 09/26/16 04:52 112/62 09/26/16 04:22 18 09/26/16 04:00 97.6 71 20 97 09/26/16 01:29 98/48 09/26/16 00:00 98.2 77 20 90/43 97 09/25/16 22:00 110/78 Automatic Cuff 09/25/16 22:00 79 09/25/16 21:07 98 21 09/25/16 20:00 98.2 77 20 98/55 98 09/25/16 12:00 98.3 75 17 96/60 93 -: 09/26/16 0513 09/26/16 0513 Physical Exam General Appearance: Well Developed Neck Neck Exam: Neck Supple Pulmonary Resp Exam: Clear Bilaterally, Breath Sounds Equal Cardiology CV Exam: Regular, Normal Sinus Rhythm Gastrointestinal/Abdomen GI Exam: Soft, Non-Tender, Bowel Sounds Present Extremeties Extremities Exam: Moderate Edema Extremeties Remarks Left arm, Assessment/Plan Problem List: (1) Chronic kidney disease Plan: s/p AVF repositioning follow labs she was suppose to start hemodialysis as an out patient once her AVF is cleared for use. cr 4.1 she didn't drink or eat much yesterday, today feels better monitor BMP K 5.2 better (2) Neutropenia Plan: monitor Problem Qualifiers (1) Chronic kidney disease: Qualified Code: N18.5 - Chronic kidney disease, stage 5 Oscar Jurado MD Sep 26, 2016 09:38
--- NOTE | 2016-09-26 12:27 | PD.CONS ---
HPI History of Present Illness This is a 65 year old female with chronic disease who came to the hospital to have revision of her AV fistula in anticipation of starting HD soon. This was done on 09/24/16. She states that when awakened from surgery, she was having severe sharp constant epigastric pain that radiated to her back and her chest. This was constant and she could not identify any aggravating factors. She denies any associated nausea/vomiting. She does have occasional symptoms of GERD, that is controlled with taking TUMs as needed. She states that she did not eat much yesterday because of the pain, but that the pain has gradually improved and at this time, she is only having a very mild discomfort. She states this is a mild pressure like pain. She is now eating and reports that she is hoping to go home today. She does have a remote history of PUD and pancreatitis many years ago. Of note, her lipase was mildly nonspecifically elevated yesterday at 396, but has since normalized. Her LFTs have remained stable. She is moving her bowels and not having any melena or hematochezia. I did discuss further evaluation with EGD with her, but she states her symptoms are resolving and she would like to go home and FU as outpatient, should her pain return. (Kamryn Leiva) PFSH Past Medical History COPD Squamous cell carcinoma of the lung Chronic kidney failure. Coronary artery disease Arthritis next 1 peripheral neuropathy Chronic pain Anxiety and depression History of peptic ulcer disease History of pancreatitis Past Surgical History Thoracotomy on the left with wedge resection Coiling of an aneurysm in the neck Cholecystectomy Tubal ligation Heart catheterization Achilles tendon repair ORIF of the right ankle (Kamryn Leiva) Coded Allergies: Morphine (Verified Allergy, Severe, "FOG", 09/24/16) Cipro (Verified Allergy, Unknown, 08/13/16) Codeine (Verified Allergy, Unknown, Vertigo, 09/24/16) Medications Allergies Coded Allergies Type Severity Reaction Last Updated Verified Morphine Allergy Severe "FOG" 09/24/16 Yes Cipro Allergy Unknown 08/13/16 Yes Codeine Allergy Unknown Vertigo 09/24/16 Yes Active Scripts Medications Dose Route/Sig Days Date Category Dose Instructions Oxygen tank (Oxygen) 1 Ea Tank 2 Liter EDUARDO.CANULA HS 09/17/16 Reported Oxygen Concentrator Portable Gaseous 2 L/min via Nasal Cannula Continuous For 99 months Duoneb (Ipratropium-Albuterol Neb) 0.5-2.5 Mg/3 Ml Neb 1 Nebule INH Q6HR NEB 07/20/16 Reported Alprazolam 0.5 Mg Tab 1 Mg PO BID 07/20/16 Reported Aspirin 81 (Aspirin) 81 Mg Tabdr 81 Mg PO DAILY 07/20/16 Reported Famotidine 20 Mg Tab 20 Mg PO DAILY 07/20/16 Reported Docusate Sodium 100 Mg Cap 100 Mg PO BID 07/20/16 Reported Vitamin D3 (Cholecalciferol) 2,000 Unit Tab 2,000 Units PO DAILY 07/20/16 Reported Spiriva Handihaler (Tiotropium Inh) 18 Mcg Cap 18 Mcg INH DAILY 07/20/16 Reported 1 capsule = 18 mcg Tolterodine (Tolterodine Tartrate) 1 Mg Tab 1 Mg PO DAILY 07/20/16 Reported Symbicort Inh (Budesonide/Formoterol Fumarate) 160-4.5 Mcg/Act Aero 2 Puff INH Q12HR 07/20/16 Reported Mucinex ER 12 HR (Guaifenesin) 600 Mg Melania 600 Mg PO BID 07/20/16 Reported Oxycodone Hydrochloride (Oxycodone HCl) 5 Mg Cap 10 Mg PO Q6HR PRN 07/20/16 Reported Gabapentin 100 Mg Cap 100 Mg PO TID 07/20/16 Reported Family History Mother from leukemia, father from liver cirrhosis, sister from breast cancer, brother from lung cancer Social History Smokes 15 cigarettes per day. No ETOH or illicit drug use. (Kamryn Leiva) Review of Systems Constitutional: COMPLAINS OF: Fatigue Respiratory: DENIES: Cough, Shortness of breath Cardiovascular: COMPLAINS OF: Chest pain Gastrointestinal: COMPLAINS OF: Abdominal pain, DENIES: Black stools, Bloody stools, Constipation, Nausea, Vomiting, Swelling of Abdomen Musculoskeletal: COMPLAINS OF: Back pain Hematologic/lymphatic: COMPLAINS OF: Bruising Psychiatric: DENIES: Confusion (Kamryn Leiva) GI Exam Vitals I&O Vital Signs Date Time Temp Pulse Resp B/P Pulse Ox O2 Delivery O2 Flow Rate FiO2 09/26/16 11:53 96.7 75 16 88/50 96 09/26/16 08:00 97.7 75 14 91/53 95 98/56 09/26/16 07:35 98 21 09/26/16 04:52 112/62 09/26/16 04:22 18 09/26/16 04:00 97.6 71 20 97 09/26/16 01:29 98/48 09/26/16 00:00 98.2 77 20 90/43 97 09/25/16 22:00 110/78 Automatic Cuff 09/25/16 22:00 79 09/25/16 21:07 98 21 09/25/16 20:00 98.2 77 20 98/55 98 I/O 09/25/16 09/25/16 09/25/16 09/26/16 09/26/16 09/26/16 07:00 15:00 23:00 07:00 15:00 23:00 Intake Total 320 ml 240 ml 240 ml 240 ml Output Total 425 ml 522 ml 200 ml Balance -105 ml -282 ml 40 ml 240 ml Intake Oral 320 ml 240 ml 240 ml 240 ml IV Total 0 ml 0 ml Output Urine Total 400 ml 500 ml 200 ml Drainage Total 25 ml 22 ml # Voids 2 # Bowel Movements 0 0 Imaging Last Impressions Renal Ultrasound 09/25/16 0000 Signed Impressions: Service Date/Time: Sunday, September 25, 2016 18:43 - CONCLUSION: The right kidney is smaller than the left. No evidence of mass or hydronephrosis. Claudy Denis MD Lower Extremity Ultrasound 09/24/16 0000 Signed Impressions: Service Date/Time: Saturday, September 24, 2016 11:14 - CONCLUSION: 1. No DVT identified. Shaheed Sheets MD Chest X-Ray 09/24/16 0000 Signed Impressions: Service Date/Time: Saturday, September 24, 2016 11:29 - CONCLUSION: Stable airspace process in the left lower lung field. Daren Crabtree MD Laboratory Test 09/26/16 05:13 White Blood Count 3.9 TH/MM3 Red Blood Count 3.45 MIL/MM3 Hemoglobin 9.7 GM/DL Hematocrit 29.4 % Mean Corpuscular Volume 85.2 FL Mean Corpuscular Hemoglobin 28.1 PG Mean Corpuscular Hemoglobin 32.9 % Concent Red Cell Distribution Width 14.6 % Platelet Count 249 TH/MM3 Mean Platelet Volume 7.1 FL Neutrophils (%) (Auto) 43.2 % Lymphocytes (%) (Auto) 15.5 % Monocytes (%) (Auto) 31.1 % Eosinophils (%) (Auto) 8.9 % Basophils (%) (Auto) 1.3 % Neutrophils # (Auto) 1.7 TH/MM3 Lymphocytes # (Auto) 0.6 TH/MM3 Monocytes # (Auto) 1.2 TH/MM3 Eosinophils # (Auto) 0.3 TH/MM3 Basophils # (Auto) 0.1 TH/MM3 CBC Comment DIFF FINAL Differential Comment Sodium Level 139 MEQ/L Potassium Level 5.2 MEQ/L Chloride Level 109 MEQ/L Carbon Dioxide Level 21.5 MEQ/L Anion Gap 9 MEQ/L Blood Urea Nitrogen 57 MG/DL Creatinine 4.17 MG/DL Estimat Glomerular Filtration 11 ML/MIN Rate Random Glucose 88 MG/DL Calcium Level 9.1 MG/DL Phosphorus Level 5.4 MG/DL Total Bilirubin 0.3 MG/DL Direct Bilirubin LESS THAN 0.1 MG/DL Indirect Bilirubin 0.2 MG/DL Aspartate Amino Transf 14 U/L (AST/SGOT) Alanine Aminotransferase 8 U/L (ALT/SGPT) Alkaline Phosphatase 104 U/L Total Protein 7.5 GM/DL Albumin 3.0 GM/DL Lipase 288 U/L Physical Examination HEENT: Normocephalic; atraumatic; no jaundice. CHEST: CTA CARDIAC: RRR ABDOMEN: Soft, nondistended, nontender; no hepatosplenomegaly; bowel sounds are present in all four quadrants. EXTREMITIES: LUE ecchymotic incision line well approximated SKIN: Normal; no rash; no jaundice. [facility] TECHNICAL ARCHITECT: No focal deficits; alert and oriented times three. (Kamryn Leiva) Assessment and Plan Plan ASSESSMENT: - Epigastric pain. Pt has CKD and is here for revision of AV fistula in anticipation of starting HD soon. When she awakened from anesthesia on 09/24, she reports that she had significant epigastric pain that was a severe constant sharp pain radiating to her back and chest. Her lipase was mildly nonspecifically elevated at 396 and her LFTs have remained stable. She denies any associated nausea/vomiting. She states that she did not eat much yesterday because of the pain, but that the pain has gradually improved and at this time, she is only having a very mild pressure discomfort in epigastric area. She is now eating and reports that she is hoping to go home today. Hx of PUD and pancreatitis many years ago. Of note, her lipase has normalized. Further evaluation was discussed, but she reports that her symptoms are resolving and she would like to go home and FU as outpatient if needed. - CKD, S/P AV Fistula revision 09/24, in anticipation of starting HD soon. Per CV PLAN: - STEVEN - Cont. PPI - Pt is not interested in GI workup as her symptoms have improved and she is hoping to go home - Okay to d/c home from GI standpoint - FU SHELIA as needed - Pt seen and examined by Dr. Coburn and myself and this note is written on his behalf (Kamryn Leiva) Physician Comments Doing better, to be dced home today. GI fu upon dc in 02 weeks please. Thank you (Svitlana Coburn MD) Kamryn Leiva Sep 26, 2016 12:27 Svitlana Coburn MD Sep 26, 2016 18:50
--- NOTE | 2016-09-26 12:43 | PD.VS.PN ---
Subjective POD #: 2 Procedure(s): L UE access revision (transposition of basilic vein) Subjective/Hospital Course Pt laying in bed this am Pt c/o back/abdominal pain No hand pain (Keyla Nichols) Objective Vitals/I&O Date Time Temp Pulse Resp B/P Pulse Ox O2 Delivery O2 Flow Rate FiO2 09/26/16 11:53 96.7 75 16 88/50 96 09/26/16 08:00 97.7 75 14 91/53 95 98/56 09/26/16 07:35 98 21 09/26/16 04:52 112/62 09/26/16 04:22 18 09/26/16 04:00 97.6 71 20 97 09/26/16 01:29 98/48 09/26/16 00:00 98.2 77 20 90/43 97 09/25/16 22:00 110/78 Automatic Cuff 09/25/16 22:00 79 09/25/16 21:07 98 21 09/25/16 20:00 98.2 77 20 98/55 98 Exam: GENERAL: A&OX3, NAD, GCS15 SKIN: Warm and dry. incision to left upper arm intact with surgical glue, erythema improved since yesterday, mild swelling no drainage NECK: Supple, No JVD CARDIOVASCULAR: +S1,S2 RESPIRATORY: Breath sounds equal and clear bilaterally. GASTROINTESTINAL: Abdomen soft, non-tender, nondistended. MUSCULOSKELETAL: No cyanosis, or edema. BACK: Nontender without obvious deformity. No CVA tenderness. Pulses: bilat palpable radial pulses +thrill near AVF NO hand pain Incisions: LUE intact with surgical glue Laboratory Laboratory Tests Test 09/26/16 05:13 White Blood Count 3.9 Red Blood Count 3.45 Hemoglobin 9.7 Hematocrit 29.4 Mean Corpuscular Volume 85.2 Mean Corpuscular Hemoglobin 28.1 Mean Corpuscular Hemoglobin 32.9 Concent Red Cell Distribution Width 14.6 Platelet Count 249 Mean Platelet Volume 7.1 Neutrophils (%) (Auto) 43.2 Lymphocytes (%) (Auto) 15.5 Monocytes (%) (Auto) 31.1 Eosinophils (%) (Auto) 8.9 Basophils (%) (Auto) 1.3 Neutrophils # (Auto) 1.7 Lymphocytes # (Auto) 0.6 Monocytes # (Auto) 1.2 Eosinophils # (Auto) 0.3 Basophils # (Auto) 0.1 CBC Comment DIFF FINAL Differential Comment Sodium Level 139 Potassium Level 5.2 Chloride Level 109 Carbon Dioxide Level 21.5 Anion Gap 9 Blood Urea Nitrogen 57 Creatinine 4.17 Estimat Glomerular Filtration 11 Rate Random Glucose 88 Calcium Level 9.1 Phosphorus Level 5.4 Total Bilirubin 0.3 Direct Bilirubin LESS THAN 0.1 Indirect Bilirubin 0.2 Aspartate Amino Transf 14 (AST/SGOT) Alanine Aminotransferase 8 (ALT/SGPT) Alkaline Phosphatase 104 Total Protein 7.5 Albumin 3.0 Lipase 288 (Keyla Nichols) Assessment and Plan Plan Plan Pt doing well post op Pending medical complaints pt ok for D/C from a vascular standpoint Will follow up with pt in 2W in our OPC Appointment given to pt Keyla SHIRLEY [facility] [phone] (Keyla Nichols) Plan I agree with above assessment and plan. Michi Porras DO, FACS Medical Attendant of Vascular Surgery /[place] (Michi Porras DO) Kyela Nichols Sep 26, 2016 12:43 Michi Porras DO Sep 26, 2016 15:29
--- NOTE | 2016-09-26 13:57 | HHI.PR ---
Subjective Remarks Patient tells me that her abdominal pain has completely resolved. She hoped she can go home soon. She denies any chest pains, shortness of breath, nausea or vomiting. Objective Vitals Vital Signs Date Time Temp Pulse Resp B/P Pulse Ox O2 Delivery O2 Flow Rate FiO2 09/26/16 11:53 96.7 75 16 88/50 96 09/26/16 08:00 97.7 75 14 91/53 95 98/56 09/26/16 07:35 98 21 09/26/16 04:52 112/62 09/26/16 04:22 18 09/26/16 04:00 97.6 71 20 97 09/26/16 01:29 98/48 09/26/16 00:00 98.2 77 20 90/43 97 09/25/16 22:00 110/78 Automatic Cuff 09/25/16 22:00 79 09/25/16 21:07 98 21 09/25/16 20:00 98.2 77 20 98/55 98 I/O 09/25/16 09/25/16 09/25/16 09/26/16 09/26/16 09/26/16 07:00 15:00 23:00 07:00 15:00 23:00 Intake Total 320 ml 240 ml 240 ml 240 ml Output Total 425 ml 522 ml 200 ml Balance -105 ml -282 ml 40 ml 240 ml Intake Oral 320 ml 240 ml 240 ml 240 ml IV Total 0 ml 0 ml Output Urine Total 400 ml 500 ml 200 ml Drainage Total 25 ml 22 ml # Voids 2 # Bowel Movements 0 0 Result Diagram: 09/26/16 0513 09/26/16 0513 Imaging Last Impressions Renal Ultrasound 09/25/16 0000 Signed Impressions: Service Date/Time: Sunday, September 25, 2016 18:43 - CONCLUSION: The right kidney is smaller than the left. No evidence of mass or hydronephrosis. Claudy Denis MD Lower Extremity Ultrasound 09/24/16 0000 Signed Impressions: Service Date/Time: Saturday, September 24, 2016 11:14 - CONCLUSION: 1. No DVT identified. Shaheed Sheets MD Chest X-Ray 09/24/16 0000 Signed Impressions: Service Date/Time: Saturday, September 24, 2016 11:29 - CONCLUSION: Stable airspace process in the left lower lung field. Daren Crabtree MD Objective Remarks GENERAL: This is a well-nourished, well-developed patient, in no apparent distress. SKIN: ecchymoses noted on the left upper extremity, incision healing well. Cool and dry. CARDIOVASCULAR: Regular rate and rhythm without murmurs RESPIRATORY: Clear to auscultation. Breath sounds equal bilaterally. No wheezes GASTROINTESTINAL: Abdomen soft, no guarding or rebound. Non tender. No palpable masses.no CVA tenderness MUSCULOSKELETAL: Motor and sensory grossly within normal limits. Five out of 5 muscle strength in all muscle groups. Normal speech. NEUROLOGICAL: Awake and alert. Cranial nerves II through XII intact. A/P Assessment and Plan s/p L UE access revision (transposition of basilic vein) POD #2. Management per vascular surgery. continue pain management per vascular sx. on colace for bowel regimen Epigastric pain w radiation to the back. hx of pancreatitis, hiatal hernia and ? stomach ulcers in the past. Lipase was mildly elevated yesterday however is back to normal. LFTs normal.. GI consult in place. Appreciate recommendations. Pt does make some urine and has some burning w urination. U/A was reviewed and not too convincing for a UTI. Pt has no fevers or chills. Nephrology ordered renal u/s, which did not show any mass or hydronephrosis. Pt didn't have any CVA tenderness on exam. COPD: uses 2L at bedtime at home Discharge Planning DC pending recs from gastroenterology and final recs from vascular surgery Taryn Holden MD Sep 26, 2016 13:57
--- NOTE | 2016-09-26 14:37 | MP ---
cc: ALPA VILLAR MD DATE OF SURGERY: 09/24/2016 PREOPERATIVE DIAGNOSIS Near end-stage renal disease, need for dialysis access. POSTOPERATIVE DIAGNOSIS Near end-stage renal disease, need for dialysis access. PROCEDURE Left upper extremity access revision (basilic vein transposition after a first stage). ATTENDING SURGEON Alpa Villar ANESTHESIA LMA. INDICATIONS Mrs. Hylton is a 65-year-old female with near end-stage renal disease with a GFR of 13. She has a left brachiobasilic fistula that has a proximal stenosis and she is taken to the operating room for transposition. DESCRIPTION OF PROCEDURE Informed consent was obtained from the patient. She was taken to the operating room and placed supine on the operating room table. An appropriate timeout was taken to ensure the patient's identity, operative site and planned procedure. A gram of Ancef was initiated prior to skin incision and will be discontinued after single preoperative dose. Everyone in the room agreed with the timeout and we proceeded. Her left arm was prepped and draped. An incision was made at the antecubitum and carried down to subcutaneous tissue with electrocautery. The basilic vein was identified and dissected free from the antecubitum all the way up to the axilla. Side branches were ligated with 3-0 silk. The vein was noted to be stenosed proximally. The brachial artery was identified in the medial aspect of the incision. A tunnel was then crated between the axillary part of the incision and the brachial artery. The antecubital portion of the basilic vein was clamped with a right angle. The vein was transected and the distal portion was oversewn with 2-0 silk suture. The vein was then clamped in the axilla and irrigated and distended. It was marked for orientation and passed through the tunnel. The patient was then heparinized with 3000 units of IV heparin. Proximal and distal control of the brachial artery was obtained with profunda clamps and a longitudinal arteriotomy was made with an 11 blade and extended with Kenton scissors. The vein was spatulated and sewn end-to-side with running 6-0 Prolene suture. At the completion if was flushed and noted to be hemostatic. There was a nice thrill in the fistula and a weak Doppler signal in the wrist even with the fistula compressed. The wounds were then irrigated. A 10 flat LIZBETH drain was placed through a separate stab incision and secured to the skin with a 2-0 nylon. The wound was then closed with 2-0 Polysorb, 3-0 Polysorb and 4-0 Monocryl. The sponge and needle counts were correct at the end of the case. I was present and scrubbed for the entire procedure. MD JESUSITA Tom/SUNDAR /10:41 AM /2:12 PM
--- NOTE | 2016-09-26 15:15 | PD.VS.DC ---
Discharge Summary Admission Date: Sep 24, 2016 at 08:26 Discharge Date: Sep 26, 2016 Admission Diagnosis: (1) Chronic kidney disease Discharge Diagnosis: (1) Chronic kidney disease Status: Chronic Brief History from admission Pt admitted for 2nd stage Left transposition surgery (AVF) Pt developed abdominal/back pain and burning with urination/ Hospitalist consulted and pt was evaluated and cleared Procedure(s): L UE access revision (transposition of basilic vein) Significant Findings Denies hand pain +Thrill near L AVF palpable radial pulses bilat Laboratory Tests Test 09/24/16 09/24/16 09/25/16 09/25/16 20:39 21:16 04:40 09:26 Urine Occult Blood LARGE (NEG) Urine Leukocyte Esterase TRACE (NEG) Urine Bacteria RARE /hpf (NONE) Urine Mucus FEW /lpf (OCC) Potassium Level 5.8 MEQ/L 5.6 MEQ/L 5.6 MEQ/L (3.5-5.1) (3.5-5.1) (3.5-5.1) Chloride Level 112 MEQ/L 110 MEQ/L 109 MEQ/L (98-107) (98-107) (98-107) Carbon Dioxide Level 17.8 MEQ/L 18.9 MEQ/L 20.3 MEQ/L (21.0-32.0) (21.0-32.0) (21.0-32.0) Blood Urea Nitrogen 57 MG/DL (7-18) 58 MG/DL (7-18) 58 MG/DL (7-18) Creatinine 3.87 MG/DL 3.97 MG/DL 3.79 MG/DL (0.50-1.00) (0.50-1.00) (0.50-1.00) Estimat Glomerular Filtration 12 ML/MIN (>89) 11 ML/MIN (>89) 12 ML/MIN (>89) Rate Random Glucose 66 MG/DL (74-106) Red Blood Count 3.56 MIL/MM3 (4.00-5.30) Hemoglobin 10.1 GM/DL (11.6-15.3) Hematocrit 30.7 % (35.0-46.0) Mean Platelet Volume 6.9 FL (7.0-11.0) Albumin 3.2 GM/DL (3.4-5.0) Lipase 396 U/L (73-393) Test 09/26/16 05:13 White Blood Count 3.9 TH/MM3 (4.0-11.0) Red Blood Count 3.45 MIL/MM3 (4.00-5.30) Hemoglobin 9.7 GM/DL (11.6-15.3) Hematocrit 29.4 % (35.0-46.0) Monocytes (%) (Auto) 31.1 % (0.0-8.0) Eosinophils (%) (Auto) 8.9 % (0.0-4.0) Neutrophils # (Auto) 1.7 TH/MM3 (1.8-7.7) Lymphocytes # (Auto) 0.6 TH/MM3 (1.0-4.8) Monocytes # (Auto) 1.2 TH/MM3 (0-0.9) Potassium Level 5.2 MEQ/L (3.5-5.1) Chloride Level 109 MEQ/L (98-107) Blood Urea Nitrogen 57 MG/DL (7-18) Creatinine 4.17 MG/DL (0.50-1.00) Estimat Glomerular Filtration 11 ML/MIN (>89) Rate Phosphorus Level 5.4 MG/DL (2.5-4.9) Aspartate Amino Transf 14 U/L (15-37) (AST/SGOT) Alanine Aminotransferase 8 U/L (10-53) (ALT/SGPT) Albumin 3.0 GM/DL (3.4-5.0) Hospital Course: Pt admitted for 2nd stage Left transposition surgery (AVF) Pt developed abdominal/back pain and burning with urination/ Hospitalist consulted and pt was evaluated and cleared Pt ok for D/C this afternoon Will see patient in 2W for follow-up Allergies Coded Allergies Type Severity Reaction Last Updated Verified Morphine Allergy Severe "FOG" 09/24/16 Yes Cipro Allergy Unknown 08/13/16 Yes Codeine Allergy Unknown Vertigo 09/24/16 Yes Recent Impressions Renal Ultrasound 09/25/16 0000 Signed Impressions: Service Date/Time: Sunday, September 25, 2016 18:43 - CONCLUSION: The right kidney is smaller than the left. No evidence of mass or hydronephrosis. Claudy Denis MD Lower Extremity Ultrasound 09/24/16 0000 Signed Impressions: Service Date/Time: Saturday, September 24, 2016 11:14 - CONCLUSION: 1. No DVT identified. Shaheed Sheets MD Lower Extremity Ultrasound 09/24/16 0000 Signed Impressions: Service Date/Time: Saturday, September 24, 2016 11:22 - CONCLUSION: 1. Measurements of the greater saphenous system are listed above. 2. No DVT identified within the deep system. Shaheed Sheets MD Chest X-Ray 09/24/16 0000 Signed Impressions: Service Date/Time: Saturday, September 24, 2016 11:29 - CONCLUSION: Stable airspace process in the left lower lung field. Daren Crabtree MD /3/174////174/5/ 06:00 18:00 06:00 18:00 06:00 18:00 Intake Total 700 ml 800 ml 240 ml 480 ml 440 ml Output Total 75 ml 1470 ml 522 ml 200 ml Balance 625 ml -670 ml -282 ml 280 ml 440 ml Intake Oral 800 ml 240 ml 480 ml 440 ml IV Total 0 ml 0 ml Other 700 ml Output Urine Total 1400 ml 500 ml 200 ml Drainage Total 25 ml 70 ml 22 ml Estimated Blood Loss 50 ml # Voids 2 4 # Bowel Movements 0 0 0 Laboratory Tests Test 09/24/16 09/24/16 09/25/16 09/25/16 20:39 21:16 04:40 09:26 Urine Color LIGHT-YELLOW Urine Turbidity CLEAR Urine pH 5.0 Urine Specific [place] 1.008 Urine Protein TRACE mg/dL Urine Glucose (UA) NEG mg/dL Urine Ketones NEG mg/dL Urine Occult Blood LARGE Urine Nitrite NEG Urine Bilirubin NEG Urine Urobilinogen LESS THAN 2.0 MG/DL Urine Leukocyte Esterase TRACE Urine RBC /hpf Urine WBC 4 /hpf Urine Squamous Epithelial 1 /hpf Cells Urine Bacteria RARE /hpf Urine Mucus FEW /lpf Microscopic Urinalysis Comment CULT NOT INDICATED Sodium Level 139 MEQ/L 139 MEQ/L 138 MEQ/L Potassium Level 5.8 MEQ/L 5.6 MEQ/L 5.6 MEQ/L Chloride Level 112 MEQ/L 110 MEQ/L 109 MEQ/L Carbon Dioxide Level 17.8 MEQ/L 18.9 MEQ/L 20.3 MEQ/L Anion Gap 9 MEQ/L 10 MEQ/L 9 MEQ/L Blood Urea Nitrogen 57 MG/DL 58 MG/DL 58 MG/DL Creatinine 3.87 MG/DL 3.97 MG/DL 3.79 MG/DL Estimat Glomerular Filtration 12 ML/MIN 11 ML/MIN 12 ML/MIN Rate Random Glucose 66 MG/DL 101 MG/DL 79 MG/DL Calcium Level 8.9 MG/DL 9.0 MG/DL 8.8 MG/DL White Blood Count 4.9 TH/MM3 Red Blood Count 3.56 MIL/MM3 Hemoglobin 10.1 GM/DL Hematocrit 30.7 % Mean Corpuscular Volume 86.2 FL Mean Corpuscular Hemoglobin 28.5 PG Mean Corpuscular Hemoglobin 33.0 % Concent Red Cell Distribution Width 15.6 % Platelet Count 274 TH/MM3 Mean Platelet Volume 6.9 FL Total Bilirubin 0.3 MG/DL Direct Bilirubin 0.1 MG/DL Indirect Bilirubin 0.2 MG/DL Aspartate Amino Transf 21 U/L (AST/SGOT) Alanine Aminotransferase 14 U/L (ALT/SGPT) Alkaline Phosphatase 110 U/L Total Protein 7.5 GM/DL Albumin 3.2 GM/DL Lipase 396 U/L Test 09/26/16 05:13 White Blood Count 3.9 TH/MM3 Red Blood Count 3.45 MIL/MM3 Hemoglobin 9.7 GM/DL Hematocrit 29.4 % Mean Corpuscular Volume 85.2 FL Mean Corpuscular Hemoglobin 28.1 PG Mean Corpuscular Hemoglobin 32.9 % Concent Red Cell Distribution Width 14.6 % Platelet Count 249 TH/MM3 Mean Platelet Volume 7.1 FL Neutrophils (%) (Auto) 43.2 % Lymphocytes (%) (Auto) 15.5 % Monocytes (%) (Auto) 31.1 % Eosinophils (%) (Auto) 8.9 % Basophils (%) (Auto) 1.3 % Neutrophils # (Auto) 1.7 TH/MM3 Lymphocytes # (Auto) 0.6 TH/MM3 Monocytes # (Auto) 1.2 TH/MM3 Eosinophils # (Auto) 0.3 TH/MM3 Basophils # (Auto) 0.1 TH/MM3 CBC Comment DIFF FINAL Differential Comment Sodium Level 139 MEQ/L Potassium Level 5.2 MEQ/L Chloride Level 109 MEQ/L Carbon Dioxide Level 21.5 MEQ/L Anion Gap 9 MEQ/L Blood Urea Nitrogen 57 MG/DL Creatinine 4.17 MG/DL Estimat Glomerular Filtration 11 ML/MIN Rate Random Glucose 88 MG/DL Calcium Level 9.1 MG/DL Phosphorus Level 5.4 MG/DL Total Bilirubin 0.3 MG/DL Direct Bilirubin LESS THAN 0.1 MG/DL Indirect Bilirubin 0.2 MG/DL Aspartate Amino Transf 14 U/L (AST/SGOT) Alanine Aminotransferase 8 U/L (ALT/SGPT) Alkaline Phosphatase 104 U/L Total Protein 7.5 GM/DL Albumin 3.0 GM/DL Lipase 288 U/L Procedure Category Date Status Time Lactated Ringer's MED 09/24/16 Complete 1000 Ml Inj (Lr 1000 M 07:30 Sodium Chlorid 0.9% MED 09/24/16 In Process 500 Ml Inj (Ns 500 M 07:30 Metoprolol Tartrate MED 09/24/16 In Process (Lopressor) 07:30 Povidone Iod 5% MED 09/24/16 In Process Antisepsis Kit 07:30 Chlorhexidine 2% MED 09/24/16 In Process Cloth (Chlorhexidine 07:30 Insulin Human Regular MED 09/24/16 In Process Inj (Novolin R Inj 07:30 Albuterol-Ipratropium MED 09/24/16 Complete Neb (Duoneb Neb) 07:27 Methylprednisolone So MED 09/24/16 Complete Succ Inj (Solumedr 07:59 Midazolam Inj (Versed MED 09/24/16 Complete Inj) 08:02 Famotidine Inj MED 09/24/16 Complete (Pepcid Inj) 08:02 Place In Observation ADMITTING 09/24/16 Transmitted Code Status CODE 09/24/16 Transmitted 08:22 Vital Signs (Adult) YARY 09/24/16 Complete 08:22 Manager [employer]s / YARY 09/24/16 In Process Telemetry 08:22 Activity Oob Ad Svetlana YARY 09/24/16 In Process 08:22 ^ Notify Dr. PRINGLE 09/24/16 In Process Parameters 08:22 ^ Precautions YARY 09/24/16 In Process 08:22 Diet Renal DIET 09/24/16 Transmitted Breakfast Basic Metabolic Panel LAB 09/24/16 Complete (Bmp) 08:22 Basic Metabolic Panel LAB 09/25/16 Complete (Bmp) 06:00 Cbc No Diff, Includes LAB 09/25/16 Complete Plts 06:00 Consult Nephrology CONS 09/24/16 Transmitted Pantoprazole MED 09/24/16 Complete (Protonix) 09:00 Hydromorphone MED 09/24/16 In Process (Dilaudid) 12:00 Aspirin Ec (Ecotrin MED 09/24/16 In Process Ec) 09:00 Budeson-Formot MED 09/24/16 In Process 160-4.5 Mg Inh 12:00 Cholecalciferol MED 09/24/16 In Process (Vitamin D3) 12:00 Docusate Sodium MED 09/24/16 In Process (Colace) 09:00 Famotidine (Pepcid) MED 09/24/16 In Process 12:00 Gabapentin (Neurontin) MED 09/24/16 In Process 13:00 Guaifenesin Er MED 09/24/16 In Process (Mucinex Er) 12:00 Albuterol-Ipratropium MED 09/24/16 In Process Neb (Duoneb Neb) 12:00 Tiotropium Inh MED 09/24/16 In Process (Spiriva Inh) 12:00 Oxycodone (Roxicodone) MED 09/24/16 In Process 14:00 Heparin Inj (Heparin MED 09/24/16 Complete Inj) 08:33 Bupivacaine Pf 0.25% MED 09/24/16 Complete Inj (Marcaine Pf 0. 08:33 (Hub Use Only)Inp Phy CONS 09/24/16 Transmitted Cons/Ref Cefazolin Inj (Ancef MED 09/24/16 Complete Inj) 08:47 Heparin Inj (Heparin MED 09/24/16 Complete Inj) 09:22 ^ Other Nursing Orders YARY 09/24/16 In Process 09:59 Urinalysis - C+S If LAB 09/24/16 Complete Indicated 09:59 Specimen To Be YARY 09/24/16 In Process Collected 09:59 Us Venous Mapping Low RADUS 09/24/16 Resulted Ext Bila Chest, Single Ap RADDIAG 09/24/16 Resulted Us Leg Venous Doppler RADUS 09/24/16 Resulted Bilat *Hydromorphone Pf Inj MED 09/24/16 Complete (*Dilaudid Pf Inj 10:32 Fentanyl Inj MED 09/24/16 Complete (Fentanyl Inj) 10:38 Alprazolam (Xanax) MED 09/24/16 In Process 12:00 *Hydromorphone Pf Inj MED 09/24/16 Complete (*Dilaudid Pf Inj 10:58 Heparin Inj (Heparin MED 09/25/16 In Process Inj) 10:00 Tolterodine La MED 09/25/16 In Process (Detrol La) 09:00 Class Iv [facility] Complete MIN General/Pacu [facility] 09/24/16 Complete Post Anesthesia Oxygen [facility] 09/24/16 Complete Pacu Med Holding [facility] 09/24/16 Complete Hourly [facility] [place] Complete Nicotine 21 Mg MED 09/24/16 In Process Patch.24 Hr (Habitrol 18:00 Remove Old Patch MED 09/24/16 In Process 21:00 Basic Metabolic Panel LAB 09/24/16 Complete (Bmp) 20:09 Consult Hospitalist CONS 09/25/16 Transmitted Sodium Polysty MED 09/25/16 Complete Sulfate Liq 12:00 [facility] 09/[facility]16 Transmitted Cons/Ref Basic Metabolic Panel LAB 09/26/16 Complete (Bmp) 06:00 US RADUS 09/25/16 Resulted Kidney/Renal/Bladder Complete Blood Count LAB 09/26/16 Complete With Diff 06:00 Phosphorus (Po4) LAB 09/26/16 Complete 06:00 Hepatic Functional LAB 09/25/16 Complete Panel 16:41 Lipase LAB 09/25/16 Complete 16:41 Consult CONS 09/25/16 Transmitted [facility]astro[facility] (Hub [facility] 09/25/16 Transmitted Cons/Ref Resp Oxygen Chuck C RSP 09/25/16 Logged Titrat 1-4 L Hepatic Functional LAB 09/26/16 Complete Panel 06:00 Lipase LAB 09/26/16 Complete 06:00 ^ Other Nursing Orders YARY 09/26/16 In Process 01:54 Physician Name Changes ADMITTING 09/26/16 Transmitted (Hub Use Only)In Phy CONS 09/26/16 Transmitted Cons/Ref Basic Metabolic Panel LAB 09/27/16 Verified (Bmp) 06:00 Physician Name Changes ADMITTING 09/26/16 Transmitted (Hub Use Only)In Phy CONS 09/26/16 Transmitted Cons/Ref Physician Name Changes ADMITTING 09/26/16 Transmitted Gastroenterology DISCHARGE 09/26/16 Transmitted Clear For Dis Attending Discharge DISCHARGE 09/26/16 Transmitted Order Vital Signs Date Time Temp Pulse Resp B/P Pulse Ox O2 Delivery O2 Flow Rate FiO2 09/26/16 11:53 96.7 75 16 88/50 96 09/26/16 08:00 97.7 75 14 91/53 95 98/56 09/26/16 07:35 98 21 09/26/16 04:52 112/62 09/26/16 04:22 18 09/26/16 04:00 97.6 71 20 97 09/26/16 01:29 98/48 09/26/16 00:00 98.2 77 20 90/43 97 09/25/16 22:00 110/78 Automatic Cuff 09/25/16 22:00 79 09/25/16 21:07 98 21 09/25/16 20:00 98.2 77 20 98/55 98 09/25/16 12:00 98.3 75 17 96/60 93 09/25/16 09:34 92 21 09/25/16 08:00 98.4 71 17 92/50 92 09/25/16 04:00 97.4 69 20 118/64 97 09/25/16 00:00 98.0 78 20 112/66 95 09/24/16 22:08 94 21 09/24/16 20:00 97.8 74 20 100/56 96 09/24/16 19:53 73 09/24/16 16:00 95.7 70 14 96/51 96 09/24/16 14:25 72 16 101/51 97 Nasal Cannula 2 09/24/16 13:30 75 16 109/55 97 Nasal Cannula 2 09/24/16 12:30 70 16 112/52 99 Nasal Cannula 2 09/24/16 11:45 74 16 104/50 96 Nasal Cannula 2 09/24/16 11:30 69 16 96/49 95 Nasal Cannula 2 09/24/16 11:15 77 16 95/46 95 Nasal Cannula 2 09/24/16 11:00 70 16 120/69 95 Nasal Cannula 2 09/24/16 10:45 75 16 108/58 95 Nasal Cannula 2 09/24/16 10:25 97.5 69 18 123/79 97 Nasal Cannula 2 09/24/16 07:10 97.5 77 20 93/43 97 Discharge Condition: Good Discharge Disposition: Discharge Home Discharge Instructions: Call the office for any questions of concerns Avoid heavy lifting (Left UE) Leave incision open to air Call the office to report any new onset redness, swelling hand pain Any questions or concerns: Call [facility] at [facility] [phone] Keyla Nichols Sep 26, 2016 15:15
== END 2016-09-26 17:11 | disposition home or self-care (01) ==
LOC: HSDC 06:36 → EDSTATUS 08:00 → HSDI 08:26 → N07A 14:54
PROVIDERS: ADMIT Hospitalist; ATTEND Hospitalist
DX: T82.858A Stenosis of other vascular prosthetic devices, implants and grafts, initial encounter (principal); I12.0 Hypertensive chronic kidney disease with stage 5 chronic kidney disease or end stage renal disease; N18.6 End stage renal disease; R10.13 Epigastric pain; E11.22 Type 2 diabetes mellitus with diabetic chronic kidney disease; E11.42 Type 2 diabetes mellitus with diabetic polyneuropathy; I25.10 Atherosclerotic heart disease of native coronary artery without angina pectoris; J44.9 Chronic obstructive pulmonary disease, unspecified; M19.90 Unspecified osteoarthritis, unspecified site; G89.29 Other chronic pain; F32.9 Major depressive disorder, single episode, unspecified; F41.9 Anxiety disorder, unspecified; F17.210 Nicotine dependence, cigarettes, uncomplicated; Z88.1 Allergy status to other antibiotic agents; Z99.2 Dependence on renal dialysis; Z85.118 Personal history of other malignant neoplasm of bronchus and lung; Z79.82 Long term (current) use of aspirin; Z87.11 Personal history of peptic ulcer disease; Z88.5 Allergy status to narcotic agent; Y83.2 Surgical operation with anastomosis, bypass or graft as the cause of abnormal reaction of the patient, or of later complication, without mention of misadventure at the time of the procedure; Z01.818 Encounter for other preprocedural examination
CPT/HCPCS: 01844; 36832; 71010; 76775; 76937; 80048; 80076; 81001; 83690; 84100; 85025; 85027; 93970; 93998; 94640; 94664; G0378; J0690; J1170; J1644; J2250; J2370; J2405; J2930; J3010; J7040; J7120

== ENCOUNTER 2016-10-24 02:45 | Inpatient (IN) | payer MEDICARE ==
[~2016-10-24 02:45] MED LIST changes: -NEBULIZER/ADULT1 KIT; -NEBULIZER1 MI1
[2016-10-24] MEDS ORDERED: SODIUM CHLOR 0.9% 1000 ML INJ 1,000 ML IV PRN ×3 (11:11)
[2016-10-24] MEDS ORDERED: GELATIN 12 MM/7 MM FOAM TOP PRN (11:15)
[2016-10-24] MEDS ORDERED: ACETAMINOPHEN 325 MG TAB PO PRN ×2 (11:15→12:00)
[2016-10-24] MEDS ORDERED: SODIUM CHLORIDE 0.9% FLUSH 10 ML FLUSH IV FLUSH PRN ×2 (11:15→12:00)
[2016-10-24] MEDS ORDERED: ALBUMIN HUMAN 25% 25 GM/100 ML BAGP IV PRN (11:15)
[2016-10-24] MEDS ORDERED: ONDANSETRON HCL 4 MG/2 ML VIAL IV PRN (11:15)
[2016-10-24] MEDS ORDERED: diphenhydrAMINE HCL 25 MG CAP PO PRN (11:15)
[2016-10-24] MEDS ORDERED: HEPARIN SODIUM - IV 10,000 UNITS/10 ML VIAL IVF PRN (11:15)
[2016-10-24] MEDS ORDERED: EPOETIN ALFA 4,000 UNITS/ML VIAL IV PRN (11:15)
[2016-10-24] MEDS ORDERED: MANNITOL 12.5 GM/50 ML VIAL IV PRN (11:15)
[2016-10-24] MEDS ORDERED: cloNIDine HCL 0.1 MG TAB PO PRN (11:15)
[2016-10-24] MEDS ORDERED: NITROGLYCERIN 0.4 MG SL 25 TABS/BTL SL PRN (11:15)
[2016-10-24] MEDS ORDERED: TUMS500C CHEW (11:16)
[2016-10-24] MEDS ORDERED: CLIN1CAP6 PO (11:16)
[2016-10-24] MEDS ORDERED: TIOTROPIUM BROMIDE 18 MCG INH INH SCH (11:16)
[2016-10-24 11:24] LABS: AUTOMATED NEUTROPHIL # 3.4 TH/MM3 (1.8-7.7); BASOPHIL # 0.1 TH/MM3 (0-0.2); BASOPHIL % 1.3 % (0.0-2.0); EOSINOPHIL # 0.3 TH/MM3 (0-0.4); EOSINOPHIL % 5.7 % (0.0-4.0); HEMATOCRIT 29.3 % (35.0-46.0); HEMO FLAGS DIFF FINAL; LYMPH % 9.9 % (9.0-44.0); LYMPHOCYTE # 0.4 TH/MM3 (1.0-4.8); MEAN CELL VOLUME 85.9 FL (80.0-100.0); MEAN CORPUSCULAR HEMOGLOBIN 28.8 PG (27.0-34.0); MEAN CORPUSCULAR HGB CONC 33.6 % (32.0-36.0); MONO % 7.5 % (0.0-8.0); NEUT % 75.6 % (16.0-70.0); PLATELET COUNT 270 TH/MM3 (150-450); RED BLOOD COUNT 3.41 MIL/MM3 (4.00-5.30); RED CELL DISTRIBUTION WIDTH 14.5 % (11.6-17.2); WHITE BLOOD COUNT 4.5 TH/MM3 (4.0-11.0)
[2016-10-24 11:32] LABS: PROTHROMBIN TIME - PATIENT 10.7 SEC (9.8-11.6)
[2016-10-24 11:47] LABS: ANION GAP 9 MEQ/L (5-15); AST (GOT) 17 U/L (15-37); BICARBONATE 17.6 MEQ/L (21.0-32.0); BLOOD UREA NITROGEN 71 MG/DL (7-18); CHLORIDE 112 MEQ/L (98-107); GLOMERULAR FILTRATION RATE 8 ML/MIN (>89); POTASSIUM 5.4 MEQ/L (3.5-5.1); SODIUM (NA) 139 MEQ/L (136-145)
[2016-10-24 11:50] LABS: ALKALINE PHOSPHATASE 107 U/L (45-117); ALT (GPT) 15 U/L (10-53); TOTAL BILIRUBIN ADULT 0.4 MG/DL (0.2-1.0)
[2016-10-24 12:00] VITALS: BP_SYST 102; BP_SYST 87; BP_DIAS 42; BP_DIAS 68; PULSE 77; RESP 20; TEMP 98.1; O2SAT 98
[2016-10-24] MEDS ORDERED: NALOXONE HCL 0.4 MG/ML AMP IV PRN (12:00)
[2016-10-24] MEDS ORDERED: ZOLPIDEM TARTRATE 5 MG TAB PO PRN (12:00)
[2016-10-24] MEDS ORDERED: ONDANSETRON HCL 4 MG/2 ML VIAL IVP PRN (12:00)
[2016-10-24] MEDS ORDERED: BISACODYL 10 MG SUPP RECTAL PRN (12:00)
--- NOTE | 2016-10-24 12:17 | HHI.HP ---
[facility] Service Nephrology Medicine Primary Care Physician Mera Chavarria MD Admission Diagnosis End-stage renal disease new onset Diagnoses: (1) ESRD (end stage renal disease) Diagnosis: Principal (2) Open wound of left upper arm Diagnosis: Secondary (3) COPD (chronic obstructive pulmonary disease) Diagnosis: Secondary Chief Complaint: Feeling tired, having lack of appetite, nausea and vomiting International Travel<30 Days: No Contact w/Intl Traveler<30days: No Known Affected Area: No History of Present Illness Patient is a 65-year-old white female with history of COPD, lung cancer status post left which resection of the tumor, chronic smoker, chronic kidney disease who has developed uremic symptoms, she did have an AV fistula procedure done a few weeks ago and her left arm wound is now open, she sees Dr. Villar, according to her daughter she was wearing long sleeves and the then scab was picked on by her and it led to wound dehiscence, she is being followed by vascular surgery. Patient then developed some nausea committed with some vomiting and lack of appetite for the last week the creatinine is trending upwards. She has been admitted to to have Permcath placed and initiate hemodialysis. Review of Systems Constitutional: COMPLAINS OF: Fatigue Respiratory: COMPLAINS OF: Shortness of breath Cardiovascular: COMPLAINS OF: Dyspnea on Exertion Gastrointestinal: COMPLAINS OF: Nausea, Vomiting, Anorexia Musculoskeletal: COMPLAINS OF: Joint pain Integumentary: COMPLAINS OF: Abnormal pigmentation (left arm wound) Psychiatric: COMPLAINS OF: Anxiety Past Family Social History Past Medical History History of lung cancer Chronic kidney disease Anemia COPD Chronic smoking Secondary hyperparathyroidism Hepatitis C Past Surgical History Left arm AV fistula Second procedure done on the left arm which resulted in surgical wound Dehiscence Left lung wedge resection of the tumor with radiation Cholecystectomy Tubal ligation Brain aneurysm stent Reported Medications Reported Meds & Active Scripts Active Reported Clindamycin (Clindamycin HCl) 300 Mg Cap 600 Mg PO BID Tums (Calcium Carbonate (Antacid)) 500 Mg Chew 500 Mg CHEW DAILY PRN Oxygen tank (Oxygen) 1 Ea Tank 2 Liter EDUARDO.CANULA HS Oxygen Concentrator Portable Gaseous 2 L/min via Nasal Cannula Continuous For 99 months Duoneb (Ipratropium-Albuterol Neb) 0.5-2.5 Mg/3 Ml Neb 1 Nebule INH Q6HR NEB Alprazolam 0.5 Mg Tab 1 Mg PO BID Aspirin 81 (Aspirin) 81 Mg Tabdr 81 Mg PO DAILY Famotidine 20 Mg Tab 20 Mg PO DAILY Docusate Sodium 100 Mg Cap 100 Mg PO BID Vitamin D3 (Cholecalciferol) 2,000 Unit Tab 2,000 Units PO DAILY Spiriva Handihaler (Tiotropium Inh) 18 Mcg Cap 18 Mcg INH DAILY 1 capsule = 18 mcg Tolterodine (Tolterodine Tartrate) 1 Mg Tab 1 Mg PO DAILY Symbicort Inh (Budesonide/Formoterol Fumarate) 160-4.5 Mcg/Act Aero 2 Puff INH Q12HR Mucinex ER 12 HR (Guaifenesin) 600 Mg Melania 600 Mg PO BID Oxycodone Hydrochloride (Oxycodone HCl) 5 Mg Cap 10 Mg PO Q6HR PRN Gabapentin 100 Mg Cap 100 Mg PO TID Allergies: Coded Allergies: Morphine (Verified Allergy, Severe, "FOG", 09/24/16) Cipro (Verified Allergy, Unknown, 08/13/16) Codeine (Verified Allergy, Unknown, Vertigo, 09/24/16) Active Ordered Medications Reported Meds & Active Scripts Active Reported Clindamycin (Clindamycin HCl) 300 Mg Cap 600 Mg PO BID Tums (Calcium Carbonate (Antacid)) 500 Mg Chew 500 Mg CHEW DAILY PRN Oxygen tank (Oxygen) 1 Ea Tank 2 Liter EDUARDO.CANULA HS Oxygen Concentrator Portable Gaseous 2 L/min via Nasal Cannula Continuous For 99 months Duoneb (Ipratropium-Albuterol Neb) 0.5-2.5 Mg/3 Ml Neb 1 Nebule INH Q6HR NEB Alprazolam 0.5 Mg Tab 1 Mg PO BID Aspirin 81 (Aspirin) 81 Mg Tabdr 81 Mg PO DAILY Famotidine 20 Mg Tab 20 Mg PO DAILY Docusate Sodium 100 Mg Cap 100 Mg PO BID Vitamin D3 (Cholecalciferol) 2,000 Unit Tab 2,000 Units PO DAILY Spiriva Handihaler (Tiotropium Inh) 18 Mcg Cap 18 Mcg INH DAILY 1 capsule = 18 mcg Tolterodine (Tolterodine Tartrate) 1 Mg Tab 1 Mg PO DAILY Symbicort Inh (Budesonide/Formoterol Fumarate) 160-4.5 Mcg/Act Aero 2 Puff INH Q12HR Mucinex ER 12 HR (Guaifenesin) 600 Mg Melania 600 Mg PO BID Oxycodone Hydrochloride (Oxycodone HCl) 5 Mg Cap 10 Mg PO Q6HR PRN Gabapentin 100 Mg Cap 100 Mg PO TID Family History Noncontributory lives with her daughter Social History 1 pack per day cigarettes, denies alcohol and Physical Exam Vital Signs BP 102/68 P 74 T 97.4 RR 16 Physical Exam GENERAL: This is a well-nourished, well-developed patient, in no apparent distress. SKIN: No rashes, ecchymoses or lesions. Cool and dry. HEAD: Atraumatic. Normocephalic. No temporal or scalp tenderness. EYES: Pupils equal round and reactive. Extraocular motions intact. No scleral icterus. No injection or drainage. ENT: Nose without bleeding, purulent drainage or septal hematoma. Throat without erythema, tonsillar hypertrophy or exudate. Uvula midline. Airway patent. NECK: Trachea midline. No JVD or lymphadenopathy. Supple, nontender, no meningeal signs. CARDIOVASCULAR: Regular rate and rhythm without murmurs, gallops, or rubs. RESPIRATORY: Clear to auscultation. Breath sounds equal bilaterally. No wheezes , rales, or rhonchi. GASTROINTESTINAL: Abdomen soft, non-tender, nondistended. No hepato-splenomegaly , or palpable masses. No guarding. MUSCULOSKELETAL: Extremities without clubbing, cyanosis, or edema. No joint tenderness, she does have open wound in the left arm NEUROLOGICAL: Awake and alert. Cranial nerves II through XII intact. Motor and sensory grossly within normal limits. Laboratory Laboratory Tests Test 10/24/16 11:08 White Blood Count 4.5 Red Blood Count 3.41 Hemoglobin 9.8 Hematocrit 29.3 Mean Corpuscular Volume 85.9 Mean Corpuscular Hemoglobin 28.8 Mean Corpuscular Hemoglobin 33.6 Concent Red Cell Distribution Width 14.5 Platelet Count 270 Mean Platelet Volume 7.0 Neutrophils (%) (Auto) 75.6 Lymphocytes (%) (Auto) 9.9 Monocytes (%) (Auto) 7.5 Eosinophils (%) (Auto) 5.7 Basophils (%) (Auto) 1.3 Neutrophils # (Auto) 3.4 Lymphocytes # (Auto) 0.4 Monocytes # (Auto) 0.3 Eosinophils # (Auto) 0.3 Basophils # (Auto) 0.1 CBC Comment DIFF FINAL Differential Comment Prothrombin Time 10.7 Prothromb Time International 1.0 Ratio Sodium Level 139 Potassium Level 5.4 Chloride Level 112 Carbon Dioxide Level 17.6 Anion Gap 9 Blood Urea Nitrogen 71 Creatinine 5.28 Estimat Glomerular Filtration 8 Rate Random Glucose 78 Calcium Level 8.8 Phosphorus Level 6.7 Total Bilirubin 0.4 Aspartate Amino Transf 17 (AST/SGOT) Alanine Aminotransferase 15 (ALT/SGPT) Alkaline Phosphatase 107 Total Protein 8.2 Albumin 3.4 Result Diagram: 10/24/16 1108 10/24/16 1108 Assessment and Plan Problem List: (1) ESRD (end stage renal disease) Status: Acute Plan: Patient has developed end-stage renal disease and needs hemodialysis, her fistula is not ready and I had talked to her to get a permcath, she will be going this afternoon. Continue to monitor her situation and dialysis will be initiated (2) Open wound of left upper arm Status: Acute Plan: She is on clindamycin and will resume that and asked Dr. Villar input (3) COPD (chronic obstructive pulmonary disease) Status: Chronic Plan: Counseled her against smoking she has a history of lung cancer and this was strongly emphasized (4) Normocytic anemia Status: Chronic Plan: Likely due to chronic kidney disease Physician Certification 2 Midnight Certification Type: Admission for Inpatient Services Order for Inpatient Services The services are ordered in accordance with Medicare regulations or non- Medicare payer requirements, as applicable. In the case of services not specified as inpatient-only, they are appropriately provided as inpatient services in accordance with the 2-midnight benchmark. Estimated LOS (days): 5 days is the estimated time the patient will need to remain in the hospital, assuming treatment plan goals are met and no additional complications. Post-Hospital Plan: Home Problem Qualifiers (1) COPD (chronic obstructive pulmonary disease): Qualified Code: J44.9 - Chronic obstructive pulmonary disease, unspecified COPD type Oscar Jurado MD October 24, 2016 12:17
--- NOTE | 2016-10-24 12:26 | RADRPT ---
EXAM DATE/TIME: 10/24/2016 12:07 [facility] COMPARISON: CHEST SINGLE AP, July 20, 2016, 19:40. CHEST SINGLE AP, September 24, 2016, 11:29. INDICATIONS : Short of breath. MEDICAL HISTORY : Chronic obstructive pulmonary disease. Renal disease, end stage. SURGICAL HISTORY : None. ENCOUNTER: Initial ACUITY: 2 days PAIN SCORE: 0/10 LOCATION: Bilateral chest FINDINGS: There is persistent left chest volume loss and parenchymal opacity in the left lower lung region. The right lung is stable and clear. Cardiac contours are unchanged. CONCLUSION: Stable abnormal chest appearance. Jose Ivan MD on October 24, 2016 at 12:23 Board Certified Radiologist. This report was verified electronically.
[2016-10-24] MEDS: GABAPENTIN 100 MG CAP PO SCH ×2 (12:52→18:00)
[2016-10-24] MEDS: CHOLECALCIFEROL (VIT D3) 1000 UNIT TAB PO SCH (12:52)
[2016-10-24] MEDS: FAMOTIDINE 20 MG TAB PO SCH (12:52)
[2016-10-24] MEDS: LORazepam 2 MG/ML VIAL IV PUSH PRN ×2 (12:53→20:38)
[2016-10-24] MEDS: CALCIUM ACETATE 667 MG CAP PO SCH ×2 (12:53→20:37)
[2016-10-24] MEDS: HEPARIN SODIUM - SQ 10,000 UNITS/ML VIAL SQ SCH (12:53)
[2016-10-24] MEDS ORDERED: CALCIUM ACETATE 667 MG CAP PO SCH (13:30)
[2016-10-24] MEDS ORDERED: ceFAZolin 2 GM PREMIX 50 ML IV SCH (14:30)
[2016-10-24] MEDS ORDERED: VANCOMYCIN INJ 1,000 MG in SODIUM CHLOR 0.9% 250 ML INJ 250 ML IV SCH (14:30)
--- NOTE | 2016-10-24 15:17 | PD.VS.PN ---
Subjective Subjective/Hospital Course Pt well known to me. s/p L UE brachiobasilic (1st stage done in CT, second stage with transposition done here 09/24/16). Adm for initiation of HD and L UE infection. Pt was on her way to get catheter at time I saw her. Full exam to follow. Objective Vitals/I&O Date Time Temp Pulse Resp B/P Pulse Ox O2 Delivery O2 Flow Rate FiO2 10/24/16 12:00 98.1 77 20 87/42 98 102/68 10/24/16 10/24/16 10/24/16 07:00 15:00 23:00 Intake Total 0 ml Balance 0 ml Physical Exam L UE + thrill. Medial incision breakdown. AVF away from incision (tunneled) Laboratory Laboratory Tests Test 10/24/16 10/24/16 11:08 12:00 White Blood Count 4.5 Red Blood Count 3.41 Hemoglobin 9.8 Hematocrit 29.3 Mean Corpuscular Volume 85.9 Mean Corpuscular Hemoglobin 28.8 Mean Corpuscular Hemoglobin 33.6 Concent Red Cell Distribution Width 14.5 Platelet Count 270 Mean Platelet Volume 7.0 Neutrophils (%) (Auto) 75.6 Lymphocytes (%) (Auto) 9.9 Monocytes (%) (Auto) 7.5 Eosinophils (%) (Auto) 5.7 Basophils (%) (Auto) 1.3 Neutrophils # (Auto) 3.4 Lymphocytes # (Auto) 0.4 Monocytes # (Auto) 0.3 Eosinophils # (Auto) 0.3 Basophils # (Auto) 0.1 CBC Comment DIFF FINAL Differential Comment Prothrombin Time 10.7 Prothromb Time International 1.0 Ratio Sodium Level 139 Potassium Level 5.4 Chloride Level 112 Carbon Dioxide Level 17.6 Anion Gap 9 Blood Urea Nitrogen 71 Creatinine 5.28 Estimat Glomerular Filtration 8 Rate Random Glucose 78 Calcium Level 8.8 Phosphorus Level 6.7 Total Bilirubin 0.4 Aspartate Amino Transf 17 (AST/SGOT) Alanine Aminotransferase 15 (ALT/SGPT) Alkaline Phosphatase 107 Total Protein 8.2 Albumin 3.4 Hepatitis A IgM Antibody NEGATIVE Hepatitis B Surface Antigen NEGATIVE Hepatitis B Core IgM Antibody NEGATIVE Hepatitis C Antibody NEGATIVE Imaging Last 48 hours Impressions Chest X-Ray 10/24/16 1157 Signed Impressions: Service Date/Time: Wednesday, October 24, 2016 12:07 - CONCLUSION: Stable abnormal chest appearance. Jose Ivan MD Assessment and Plan Plan 1. Rec Vanc w/ HD 2. Collagenase to wound. 3. Will see after catheter placement and will follow closely in house Eric Villar MD October 24, 2016 15:17
[2016-10-24] MEDS ORDERED: MIDAZOLAM HCL 5 MG/5 ML VIAL ONE (15:46)
[2016-10-24] MEDS ORDERED: fentaNYL CITRATE 250 MCG/5 ML AMP ONE (15:46)
[2016-10-24] MEDS ORDERED: LIDOCAINE 1%/EPINEPHrine 1:100,000 SOLN 20 ML VIAL ONE (15:58)
--- NOTE | 2016-10-24 16:33 | PD.RAD ---
Post Procedure Progress Note Pre Procedure Diagnosis: (1) ESRD (end stage renal disease) Post Procedure Diagnosis: (1) ESRD (end stage renal disease) Procedure Date: October 24, 2016 Supervising Radiologist: Claudy Rucker JR Proceduralist/Assist: Laurence Paz, RT(R), Arabella Patton RT(R) Anesthesia: Conscious Sedation Plan of Activity Patient to Unit: ROPU Patient Condition: Good See PACS Report for procedural detail/treatment Central Venous Access Device Procedure 1 Right Internal Jugular Hemodialysis Catheter Tunneled Placement dual lumen Greek: 15 Findings: Cath in good position and functions well. OK to use Plan Remove sutures at base of neck and holding cath in place in 2-3 weeks. Jr. Chaim,Claudy Wall MD October 24, 2016 16:33
[2016-10-24] MEDS ORDERED: HEPARIN SODIUM - IV 2,000 UNITS/2 ML VIAL IV FLUSH PRN (16:45)
[2016-10-24] MEDS ORDERED: SODIUM CHLORIDE 0.9% FLUSH 10 ML FLUSH IVF PRN (16:45)
--- NOTE | 2016-10-24 16:59 | RADRPT ---
EXAM DATE/TIME: 10/24/2016 16:32 [facility] COMPARISON: No previous studies available for comparison. INDICATIONS : Patient with end-stage renal disease in need of tunnelled dialysis catheter placement. MEDICAL HISTORY : Left lung cancer, COPD, CKD, Brain aneurysm, HTN, RI, Diabetes, ESRD, Hepatitis C, GERD SURGICAL HISTORY : Brain aneurysm stent, Left arm AV fistula, Left lung wedge resection with radiation, Cholecystectomy, Cardiac cath ENCOUNTER: Initial ACUITY: 3 weeks PAIN SCORE: 0/10 FLUORO TIME: 0.4 minutes IMAGE SERIES: 1 SEDATION TIME: 30 minutes ACCESS: Right internal jugular vein SEDATION: 1.) 2 mg midazolam (Versed) IV 2.) 100 mcg fentanyl (Sublimaze) IV Prophylactic antibiotics were administered with appropriate pre-procedure timing. Vancomycin within 2 hours of procedure, Ancef (or alternative) within 1 hour of procedure. DEVICE: 1. 15 Mongolian dual lumen 19 cm Jacobo II Plus catheter PROCEDURE : 1. Ultrasound-guided venipuncture. 2. PermaCath placement. 3. Conscious sedation with continuous EKG and oximetry monitoring. The risks, benefits and alternatives to the procedure were explained and verbal and written consent w as obtained. The site was prepped in sterile fashion. Full sterile technique was used, including ca p, mask, sterile gloves and gown and a large sterile sheet. Hand hygiene and 2% chlorhexidine and/or betadine/alcohol prep was utilized per protocol for cutaneous antisepsis. The skin and subcutaneous tissues were infiltrated with local anesthetic solution. With ultrasound and fluoroscopic guidance a dermatotomy was created over the prescribed vein. A micr opuncture set was used to access the targeted vein and serial dilatation was performed to accept the prescribed length catheter. A subcutaneous tunnel was created in a retrograde fashion the catheter w as pulled through the tunnel. The catheter was flushed and assembled and locked with heparin. The c atheter was sutured in place. Conscious sedation was performed with the prescribed dosages and duration as above in the presence of an independent trained radiology nurse to assist in the monitoring of the patient. EKG and oximetry remained stable throughout the procedure. The patient tolerated the procedure well and there were n o complications. The patient was sent to post anesthesia recovery in stable condition. CONCLUSION: Uncomplicated PermaCath placement as above. Claudy Rucker Jr., MD on October 24, 2016 at 16:57 Board Certified Radiologist. This report was verified electronically.
[2016-10-24] MEDS: HEPARIN SODIUM - IV 10,000 UNITS/10 ML VIAL PRN (18:34)
[2016-10-24] MEDS: GENTAMICIN SULFATE (DIALYSIS USE ONLY) 20 MG/2 ML VIAL IV PRN (18:35)
[2016-10-24] MEDS: EPOETIN ALFA 4,000 UNITS/ML VIAL IV PRN (18:36)
--- NOTE | 2016-10-24 19:29 | RADRPT ---
EXAM DATE/TIME: 10/24/2016 19:18 [facility] COMPARISON: No previous studies available for comparison. INDICATIONS : Shortness of breath. Evaluate for infiltrate. RADIATION DOSE: 4.26 CTDIvol (mGy) MEDICAL HISTORY : Hypertension. Renal failure. Diabetes. Lung carcinoma. Hep C. SURGICAL HISTORY : Permacath. Brain aneurysm with stent. Cardiac cath. Radiation therapy. ENCOUNTER: Initial ACUITY: 1 day PAIN SCALE: 0/10 LOCATION: Bilateral chest TECHNIQUE: Volumetric scanning of the chest was performed. Using automated exposure control and adjustment of t he mA and/or kV according to patient size, radiation dose was kept as low as reasonably achievable to obtain optimal diagnostic quality images. FINDINGS: LUNGS: There is no pneumothorax. There is volume loss in the left hemithorax. There is dense consolidation w ith air bronchograms in the left lower lobe. PLEURAE: There is no pleural thickening or pleural effusion. MEDIASTINUM: The heart and great vessels demonstrate no acute abnormality. There is a borderline prominent pretrac heal lymph node measuring up to approximately 1.4 x 1.1 cm. There is no definite hilar adenopathy on this noncontrast study. A transvenous pacer is noted in place. AXILLAE: Within normal limits. No lymphadenopathy. The patient appears status post left thoracotomy. MUSCULOSKELETAL: Within normal limits for patient age. MISCELLANEOUS: The visualized upper abdominal organs demonstrate no acute abnormality. CONCLUSION: 1. Volume loss in the left hemithorax which may be due to postsurgical change and possible lobectomy. 2. Dense consolidation in the left lung base with air bronchograms most consistent with pneumonia. 3. Borderline prominent pretracheal lymph node. Nirav Yanes MD on October 24, 2016 at 19:23 Board Certified Radiologist. This report was verified electronically.
--- NOTE | 2016-10-24 19:50 | MB ---
cc: TAD PORTER DATE OF CONSULTATION 10/24/2016 REASON FOR CONSULTATION COPD. HISTORY OF THE PRESENT ILLNESS This is 65-year-old lady with a history of COPD and a prior history of lung cancer with partial resection of the left upper lobe. She has been admitted with nausea and extreme fatigue, loss of appetite and shortness of breath. The patient has had a history of renal failure and chronic kidney disease and she had an AV fistula placed in the left arm but apparently got infected and now has a vas-cath in place in the right chest and is being dialyzed today. The patient has some cough. She brings up whitish-yellow mucus. Denies any chest pains. She has been on antibiotic therapy due to her infected A-V fistula and now has a Perma-Cath for hemodialysis. She is not on any oxygen and her saturation is up to 93%. PAST MEDICAL HISTORY The past history includes: 1. History of carcinoma of the lung. 2. History of chronic kidney disease. 3. The patient has had COPD and a history of chronic smoking. The carcinoma of the lung was a squamous cell carcinoma and apparently she had a wedge resection in [place] followed by radiation therapy. 4. There is also a history for degenerative arthritis. 5. Anxiety and depression. 6. History of ethanolism. 7. Coronary artery disease. PAST SURGICAL HISTORY Surgery includes: 1. Cholecystectomy. 2. Tubal ligation. 3. Cardiac catheterization. 4. Achilles tendon repair. 5. Open reduction, internal fixation of the right ankle from fracture. 6. Thoracotomy with wedge resection of the left lung mass, squamous cell type. 7. Aneurysm coiled in the neck. SOCIAL HISTORY Habits, the patient smokes half to one-pack per day, smoked for over 40 years. Was an alcoholic in the past but not presently. FAMILY HISTORY Mother had leukemia. Father of cirrhosis. One brother with lung cancer and one sister with breast cancer. ALLERGIES MORPHINE, CODEINE, CIPRO. MEDICATIONS 1. Symbicort 160/4.5 two puffs b.i.d. 2. Gabapentin 100 milligrams three times a day. 3. Nicotine patch. 4. Xanax 0.5 mg q6h as needed. 5. Spiriva one capsule a day inhalation. 6. 2 milligrams daily. 7. Ambien 5 milligrams bedtime. 8. Trazodone 150 milligrams bedtime. REVIEW OF SYSTEMS System review, the patient has lost weight. She has postnasal drip, cough, wheezing. She has epigastric distress and reflux. Denies urinary symptoms. She has joint pains of her extremities and denies any skin lesions. PHYSICAL EXAMINATION GENERAL: This thinly built, elderly white female who appears chronically ill. VITAL SIGNS: Blood pressure 120/60, pulse is 80, respirations are 18, temperature 97.5. HEENT: Head normocephalic. Pupils reactive and equal. Tongue is dry. Throat is injected. Nasal mucosa is erythematous. NECK: Supple. No bruits. There is mild venous distension while laying flat. Trachea midline. No thyroid enlargement. CHEST: Equal movements. There is a Perma-Cath in the right upper chest. Breath sounds diminished at the periphery. Occasional coarse wheezes throughout both lung pat. Prolonged expirations. HEART: The heart sounds are irregular S1-S2. No murmur. No S3. ABDOMEN: Soft. Nontender. No organomegaly. Bowel sounds are active. EXTREMITIES: There is a dressing in the left arm from a previous AV fistula and wound with some redness. Lower extremities, no edema. Peripheral pulses diminished. NEUROLOGIC: She is moving all extremities. 1+ reflexes with no gross motor deficits. Cranial nerves grossly intact. RECTAL: Exam is deferred. IMPRESSION 1. COPD with chronic bronchitis and emphysema. 2. End-stage renal disease on dialysis. 3. 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 4. Peripheral neuropathy. 5. Nicotine dependency. 6. Anxiety and depression. PLAN The patient will be placed on 2 liters of oxygen nasal cannula, nebulized DuoNeb solution q.i.d. and Symbicort 161/4.5 two puffs twice a day. Antibiotic therapy has been started which we will continue including clindamycin as well as vancomycin. The patient will have PFTs performed at the bedside. Counseled about quitting cigarette smoking and using a nicotine patch at 14 milligrams. I will follow the case with you Dr. Jurado. Thank you for this consultation. MD CHERELLE Arboleda/JESSICA /6:38 PM /7:27 PM
[2016-10-24 20:00] VITALS: BP 120/56; PULSE 90; RESP 22; TEMP 96.7; O2SAT 99
[2016-10-24] MEDS: SODIUM CHLORIDE 0.9% FLUSH 10 ML FLUSH IV FLUSH SCH (20:37)
[2016-10-24] MEDS: DOCUSATE SODIUM 100 MG CAP PO SCH (20:37)
[2016-10-24] MEDS: CLINDAMYCIN 150 MG CAP PO SCH (20:37)
[2016-10-24] MEDS: CYPROHEPTADINE HCL 4 MG TAB PO SCH (20:59)
[2016-10-24] MEDS: BUDESONIDE-FORMOTEROL 160/4.5 MCG INHALER INH SCH ×2 (21:00→21:13)
[2016-10-24 21:35] VITALS: O2SAT 95
[2016-10-24] MEDS: RESP: ALBUTEROL 2.5 MG/IPRATROPIUM 0.5 MG NEB (SCH) NEB (21:35)
[2016-10-24 22:49] LABS: BLOOD GAS BASE EXCESS 1.3 mmol/L (-2-2); BLOOD GAS CARBOXYHEMOGLOBIN 2.9 % (0-4); BLOOD GAS HCO3 25 mmol/L (22-26); BLOOD GAS O2 HGB SATURATION 91 % (90-100); BLOOD GAS OXYGEN CONTENT 11.9 Vol % (12.0-20.0); BLOOD GAS PCO2 37 mmHg (38-42); BLOOD GAS PO2 67 mmHg (61-120); BLOOD GAS TOTAL HGB 9.3 G/DL (12.0-16.0); CRITICAL VALUE NO; DRAW SITE RT RADIAL; FIO2 21 %; NUMBER OF ARTERIAL PUNCTURES 1; OXYGEN DEVICE ROOM AIR; TEMP CORR TO 98.6; ULNAR PULSE PRESENT
[2016-10-24 22:50] LABS: STAT NO
[2016-10-25] VITALS (8 sets, daily range): BP systolic 92–138; BP diastolic 46–67; PULSE 73–91; RESP 16–22; TEMP 97.6–99.2; O2SAT 95–98
[2016-10-25] MEDS: HEPARIN SODIUM - SQ 10,000 UNITS/ML VIAL SQ SCH ×2 (01:58→12:17)
[2016-10-25] MEDS: oxyCODONE/ACETAMINOPHEN 5 MG/325 MG TAB PO PRN ×3 (05:22→20:36)
[2016-10-25 05:30] LABS: AUTOMATED NEUTROPHIL # 1.9 TH/MM3 (1.8-7.7); BASOPHIL # 0.1 TH/MM3 (0-0.2); BASOPHIL % 2.1 % (0.0-2.0); EOSINOPHIL # 0.2 TH/MM3 (0-0.4); EOSINOPHIL % 4.8 % (0.0-4.0); HEMATOCRIT 27.3 % (35.0-46.0); HEMO FLAGS DIFF FINAL; LYMPH % 16.9 % (9.0-44.0); LYMPHOCYTE # 0.5 TH/MM3 (1.0-4.8); MEAN CORPUSCULAR HGB CONC 33.3 % (32.0-36.0); MONO % 15.6 % (0.0-8.0); NEUT % 60.6 % (16.0-70.0); PLATELET COUNT 215 TH/MM3 (150-450); RED BLOOD COUNT 3.25 MIL/MM3 (4.00-5.30); WHITE BLOOD COUNT 3.2 TH/MM3 (4.0-11.0)
[2016-10-25 06:05] LABS: ANION GAP 10 MEQ/L (5-15); BICARBONATE 25.2 MEQ/L (21.0-32.0); BLOOD UREA NITROGEN 52 MG/DL (7-18); CHLORIDE 105 MEQ/L (98-107); FERRITIN 385 NG/ML (8-252); GLOMERULAR FILTRATION RATE 12 ML/MIN (>89); POTASSIUM 4.4 MEQ/L (3.5-5.1); SODIUM (NA) 140 MEQ/L (136-145); TRANSFERRIN IRON PROFILE 157 MG/DL (200-360)
[2016-10-25] MEDS: SODIUM CHLORIDE 0.9% FLUSH 10 ML FLUSH IV FLUSH SCH ×3 (08:17→20:37)
[2016-10-25] MEDS: BUDESONIDE-FORMOTEROL 160/4.5 MCG INHALER INH SCH ×4 (08:17→20:38)
[2016-10-25] MEDS: CLINDAMYCIN 150 MG CAP PO SCH ×3 (08:22→20:36)
[2016-10-25] MEDS: DOCUSATE SODIUM 100 MG CAP PO SCH ×3 (08:22→20:36)
[2016-10-25] MEDS: CHOLECALCIFEROL (VIT D3) 1000 UNIT TAB PO SCH ×2 (08:23→12:16)
[2016-10-25] MEDS: CALCIUM ACETATE 667 MG CAP PO SCH ×3 (08:23→17:01)
[2016-10-25] MEDS: FAMOTIDINE 20 MG TAB PO SCH ×2 (08:23→12:16)
[2016-10-25] MEDS: CYPROHEPTADINE HCL 4 MG TAB PO SCH ×3 (08:23→20:47)
[2016-10-25] MEDS: GABAPENTIN 100 MG CAP PO SCH ×3 (08:23→17:01)
[2016-10-25] MEDS: RESP: ALBUTEROL 2.5 MG/IPRATROPIUM 0.5 MG NEB (SCH) NEB ×4 (08:44→19:50)
[2016-10-25] MEDS: EPOETIN ALFA 4,000 UNITS/ML VIAL IV PRN (09:42)
--- NOTE | 2016-10-25 11:08 | HHI.NPPN ---
Subjective History of Present Illness Patient is 65-year-old female with a history of uremia nausea and vomiting approached ESRD, she has lung cancer and a chronic smoker as well Review of Systems Psych Psych: Anxiety Objective Data Data 10/24/16 10/25/16 19:00 07:00 Intake Total 0 ml 480 ml Output Total 2450 ml Balance 0 ml -1970 ml Intake Oral 480 ml IV Total 0 ml 0 ml Output Urine Total 950 ml Hemodialysis 1500 ml # Voids 1 # Bowel Movements 0 0 Vital Signs Date Time Temp Pulse Resp B/P Pulse Ox O2 Delivery O2 Flow Rate FiO2 10/25/16 08:00 97.6 74 16 101/55 96 10/25/16 05:21 120/62 10/25/16 00:00 98.5 84 22 92/46 98 10/24/16 21:35 95 21 10/24/16 20:00 96.7 90 22 120/56 99 10/24/16 12:00 98.1 77 20 87/42 98 102/68 -: 10/25/16 0453 10/25/16 0427 Physical Exam General Appearance: Well Developed, Anxious Neck Neck Exam: Neck Supple Pulmonary Resp Exam: Clear Bilaterally, Breath Sounds Equal Cardiology CV Exam: Regular, Normal Sinus Rhythm Gastrointestinal/Abdomen GI Exam: Soft, Non-Tender, Bowel Sounds Present Integumentary Skin Exam: Lesion(s) Skin Remarks Left arm Extremeties Extremities Exam: No Edema Assessment/Plan Problem List: (1) ESRD (end stage renal disease) Plan: Patient seen at the dialysis at times gets anxious, asking for Xanax UF is 1 L Hemodialysis will be arranged as an outpatient (2) Open wound of left upper arm Plan: The wound appears clean She is on clindamycin Vascular recommended vancomycin (3) COPD (chronic obstructive pulmonary disease) Plan: Dr. Rodriguez help appreciated CT of the chest done she may have possible pneumonia we'll add vancomycin Problem Qualifiers (1) COPD (chronic obstructive pulmonary disease): Qualified Code: J44.9 - Chronic obstructive pulmonary disease, unspecified COPD type Oscar Jurado MD October 25, 2016 11:08
[2016-10-25] MEDS: HEPARIN SODIUM - IV 10,000 UNITS/10 ML VIAL PRN (11:10)
[2016-10-25] MEDS: GENTAMICIN SULFATE (DIALYSIS USE ONLY) 20 MG/2 ML VIAL IV PRN (11:10)
[2016-10-25] MEDS ORDERED: VANCOMYCIN INJ 1,000 MG in SODIUM CHLOR 0.9% 250 ML INJ 250 ML IV ONE (11:15)
[2016-10-25] MEDS: ALPRAZolam 0.5 MG TAB PO SCH (12:15)
[2016-10-25] MEDS: MIDODRINE 5 MG TAB PO SCH ×2 (12:30→17:01)
--- NOTE | 2016-10-25 13:34 | PD.VS.PN ---
Subjective Subjective/Hospital Course Pt notes that overall she feels lousy but no f/c. Hungry, no nausea Wanda HD yesterday Minimal L UE discomfort. Objective Vitals/I&O Date Time Temp Pulse Resp B/P Pulse Ox O2 Delivery O2 Flow Rate FiO2 10/25/16 12:00 99.2 91 16 138/67 95 10/25/16 08:00 97.6 74 16 101/55 96 10/25/16 05:21 120/62 10/25/16 00:00 98.5 84 22 92/46 98 10/24/16 21:35 95 21 10/24/16 20:00 96.7 90 22 120/56 99 10/25/16 10/25/16 10/25/16 07:00 15:00 23:00 Intake Total 240 ml Output Total 325 ml 1000 ml Balance -85 ml -1000 ml Physical Exam L UE incision opened with fibrinous exudate. AVF transposed to medial aspect of arm; + thrill No thrill palpable in wound. Minimal erythema Laboratory Laboratory Tests Test 10/24/16 10/25/16 10/25/16 21:45 04:27 04:53 Blood Gas Puncture Site RT RADIAL Blood Gas Patient Temperature 98.6 Blood Gas HCO3 25 Blood Gas Base Excess 1.3 Blood Gas Oxygen Saturation 91 Arterial Blood pH 7.45 Arterial Blood Partial 37 Pressure CO2 Arterial Blood Partial 67 Pressure O2 Arterial Blood Oxygen Content 11.9 Arterial Blood 2.9 Carboxyhemoglobin Arterial Blood Methemoglobin 1.0 Blood Gas Hemoglobin 9.3 Oxygen Delivery Device ROOM AIR Blood Gas Inspired Oxygen 21 Sodium Level 140 Potassium Level 4.4 Chloride Level 105 Carbon Dioxide Level 25.2 Anion Gap 10 Blood Urea Nitrogen 52 Creatinine 3.81 Estimat Glomerular Filtration 12 Rate Random Glucose 77 Calcium Level 8.4 Iron Level 49 Total Iron Binding Capacity 220 Percent Iron Saturation 22.3 Ferritin 385 White Blood Count 3.2 Red Blood Count 3.25 Hemoglobin 9.1 Hematocrit 27.3 Mean Corpuscular Volume 84.0 Mean Corpuscular Hemoglobin 28.0 Mean Corpuscular Hemoglobin 33.3 Concent Red Cell Distribution Width 14.0 Platelet Count 215 Mean Platelet Volume 7.2 Neutrophils (%) (Auto) 60.6 Lymphocytes (%) (Auto) 16.9 Monocytes (%) (Auto) 15.6 Eosinophils (%) (Auto) 4.8 Basophils (%) (Auto) 2.1 Neutrophils # (Auto) 1.9 Lymphocytes # (Auto) 0.5 Monocytes # (Auto) 0.5 Eosinophils # (Auto) 0.2 Basophils # (Auto) 0.1 CBC Comment DIFF FINAL Differential Comment Imaging Last [address] 10/24/16 1833 Signed Impressions: Service Date/Time: Monday, October 24, 2016 19:18 - CONCLUSION: 1. Volume loss in the left hemithorax which may be due to postsurgical change and possible lobectomy. 2. Dense consolidation in the left lung base with air bronchograms most consistent with pneumonia. 3. Borderline prominent pretracheal lymph node. Nirav Yanes MD Chest X-Ray 10/24/16 1157 Signed Impressions: Service Date/Time: Monday, October 24, 2016 12:07 - CONCLUSION: Stable abnormal chest appearance. Jose Ivan MD Catheter Placement X-Ray 10/24/16 0000 Signed Impressions: Service Date/Time: Monday, October 24, 2016 16:32 - CONCLUSION: Uncomplicated PermaCath placement as above. Claudy Rucker Jr., MD Assessment and Plan Plan 1. Rec Vanc w/ HD 2. Collagenase to wound daily 3. Will see daily, but I think this will heal up ultimately. Eric Villar MD October 25, 2016 13:34
[2016-10-25] MEDS: COLLAGENASE OINT 30 GM TUBE TOPICAL SCH (14:23)
--- NOTE | 2016-10-25 18:10 | HHI.PR ---
Subjective Remarks Cough with sputum. No fever. Was dialyzed. Objective Vital Signs Date Time Temp Pulse Resp B/P Pulse Ox O2 Delivery O2 Flow Rate FiO2 10/25/16 16:29 95 Nasal Cannula 2.00 10/25/16 13:55 78 120/56 10/25/16 12:00 99.2 91 16 138/67 95 10/25/16 08:00 97.6 74 16 101/55 96 10/25/16 05:21 120/62 10/25/16 00:00 98.5 84 22 92/46 98 10/24/16 21:35 95 21 10/24/16 20:00 96.7 90 22 120/56 99 I/O 10/24/16 10/24/16 10/24/16 10/25/16 10/25/16 10/25/16 07:00 15:00 23:00 07:00 15:00 23:00 Intake Total 0 ml 240 ml 240 ml 480 ml 243 ml Output Total 2125 ml 325 ml 1400 ml Balance 0 ml -1885 ml -85 ml -920 ml 243 ml Intake Oral 240 ml 240 ml 480 ml IV Total 0 ml 0 ml 0 ml 243 ml Output Urine Total 625 ml 325 ml 400 ml Hemodialysis 1500 ml 1000 ml # Voids 1 # Bowel Movements 0 0 0 3 Result Diagram: 10/25/16 0453 10/25/16 0427 Objective Remarks GENERAL: This thinly built, elderly white female who appears chronically ill. HEENT: Head normocephalic. Pupils reactive and equal. Tongue is dry. Throat is dry. Nasal mucosa is erythematous. NECK: Supple. No bruits. There is mild venous distension while laying flat. Trachea midline. No thyroid enlargement. CHEST: Equal movements. There is a Perma-Cath in the right upper chest. Breath sounds diminished at the periphery. Occasional coarse wheezes throughout both lung pat. Prolonged expirations. Crackles left base. HEART: The heart sounds are irregular S1-S2. No murmur. No S3. ABDOMEN: Soft. Nontender. No organomegaly. Bowel sounds are active. EXTREMITIES: There is a dressing in the left arm. Lower extremities, no edema. Peripheral pulses diminished. NEUROLOGIC: She is moving all extremities. 1+ reflexes with no gross motor deficits. Cranial nerves grossly intact. RECTAL: Exam is deferred. Assessment and Plan Assessment and Plan IMPRESSION 1. COPD with chronic bronchitis and emphysema. 2. End-stage renal disease on dialysis. 3. 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 4. Peripheral neuropathy. 5. Nicotine dependency. 6. Anxiety and depression. 7. Left Base Pneumonia. Plan : 1. Continue antibioitcs . 2. Add Rocephin 1 G IV daily . 3. Nebs qid , duoneb. 4. Solumedrol 40 mg IV bid. 5. Mucomyst nebs 20 % ,2 CC tid. 6. PFT at Bedside . 7. Bronchoscopy if infiltrate is persistent. Nadira Ulloa MD October 25, 2016 18:10
[2016-10-25] MEDS: ALPRAZolam 1 MG TAB PO SCH (20:36)
[2016-10-25] MEDS: cefTRIAXone INJ 1,000 MG in SODIUM CHLORIDE 0.9% INJ 100 ML IV SCH (20:38)
[2016-10-25] MEDS: methylPREDNISolone SOD SUCC 40 MG/1 ML VIAL IV SCH (20:39)
[2016-10-26] VITALS (7 sets, daily range): BP systolic 95–115; BP diastolic 48–63; PULSE 62–78; RESP 16–20; TEMP 97.6–98.8; O2SAT 94–99
[2016-10-26] MEDS: HEPARIN SODIUM - SQ 10,000 UNITS/ML VIAL SQ SCH ×2 (01:06→12:42)
[2016-10-26] MEDS: MIDODRINE 5 MG TAB PO SCH ×3 (06:00→16:02)
[2016-10-26] MEDS: RESP: ALBUTEROL 2.5 MG/IPRATROPIUM 0.5 MG NEB (SCH) NEB ×4 (08:10→20:09)
[2016-10-26] MEDS: DOCUSATE SODIUM 100 MG CAP PO SCH ×2 (08:48→20:31)
[2016-10-26] MEDS: ALPRAZolam 0.5 MG TAB PO SCH (08:49)
[2016-10-26] MEDS: GABAPENTIN 100 MG CAP PO SCH ×3 (08:49→18:36)
[2016-10-26] MEDS: CLINDAMYCIN 150 MG CAP PO SCH (08:49)
[2016-10-26] MEDS: SODIUM CHLORIDE 0.9% FLUSH 10 ML FLUSH IV FLUSH SCH ×2 (08:49→20:34)
[2016-10-26] MEDS: CHOLECALCIFEROL (VIT D3) 1000 UNIT TAB PO SCH (08:49)
[2016-10-26] MEDS: FAMOTIDINE 20 MG TAB PO SCH (08:49)
[2016-10-26] MEDS: methylPREDNISolone SOD SUCC 40 MG/1 ML VIAL IV SCH ×2 (08:50→20:32)
[2016-10-26] MEDS: CALCIUM ACETATE 667 MG CAP PO SCH ×3 (08:51→18:36)
[2016-10-26] MEDS: NICOTINE 21 MG/24 HR PATCH T-DERMAL SCH (08:51)
[2016-10-26] MEDS: BUDESONIDE-FORMOTEROL 160/4.5 MCG INHALER INH SCH ×4 (08:51→20:32)
[2016-10-26] MEDS: oxyCODONE/ACETAMINOPHEN 5 MG/325 MG TAB PO PRN ×3 (08:58→22:10)
[2016-10-26] MEDS: CYPROHEPTADINE HCL 4 MG TAB PO SCH ×2 (09:11→20:31)
[2016-10-26] MEDS: COLLAGENASE OINT 30 GM TUBE TOPICAL SCH (09:12)
--- NOTE | 2016-10-26 15:19 | HHI.NPPN ---
Subjective History of Present Illness Patient is 65-year-old female with a history of uremia nausea and vomiting approached ESRD, she has lung cancer and a chronic smoker as well Review of Systems Psych Psych: Anxiety Objective Data Data 10/25/16 10/26/16 19:00 07:00 Intake Total 723 ml 1152 ml Output Total 1600 ml 0 ml Balance -877 ml 1152 ml Intake Oral 480 ml 360 ml IV Total 243 ml 792 ml Output Urine Total 600 ml 0 ml Hemodialysis 1000 ml # Voids 1 # Bowel Movements 3 0 Vital Signs Date Time Temp Pulse Resp B/P Pulse Ox O2 Delivery O2 Flow Rate FiO2 10/26/16 12:00 98.0 78 16 101/53 95 10/26/16 08:12 97 21 10/26/16 08:00 97.6 62 19 95/55 95 10/26/16 00:00 97.8 73 18 115/63 99 10/25/16 20:00 99.1 73 20 118/57 96 10/25/16 16:29 95 Nasal Cannula 2.00 10/25/16 16:00 98.1 76 16 129/61 98 -: 10/25/16 0453 10/25/16 0427 Microbiology 10/26/16 Legionella Antigen - Final, Complete PRESUMPTIVE NEGATIVE FOR LEGIONELLA P... 10/26/16 Streptococcus pneumoniae Antigen (M - Final, Complete PRESUMPTIVE NEGATIVE FOR STREPTOCOCCU... Physical Exam General Appearance: Well Developed, Anxious Neck Neck Exam: Neck Supple Pulmonary Resp Exam: Clear Bilaterally, Breath Sounds Equal Cardiology CV Exam: Regular, Normal Sinus Rhythm Gastrointestinal/Abdomen GI Exam: Soft, Non-Tender, Bowel Sounds Present Integumentary Skin Exam: Lesion(s) Skin Remarks Left arm Extremeties Extremities Exam: No Edema Assessment/Plan Problem List: (1) ESRD (end stage renal disease) Plan: Patient is on HD next Sat has Pneumonia await Clearance from Pulmonary Hemodialysis will be arranged as an outpatient (2) Open wound of left upper arm Plan: The wound appears clean She is on clindamycin Vascular recommended vancomycin (3) COPD (chronic obstructive pulmonary disease) Plan: Dr. Rodriguez help appreciated CT of the chest done she may have possible pneumonia Rocephin/ vancomycin Problem Qualifiers (1) COPD (chronic obstructive pulmonary disease): Qualified Code: J44.9 - Chronic obstructive pulmonary disease, unspecified COPD type Oscar Jurado MD October 26, 2016 15:19
[2016-10-26] MEDS ORDERED: VANCOMYCIN INJ 1,000 MG in SODIUM CHLOR 0.9% 250 ML INJ 250 ML IV SCH (15:30)
[2016-10-26] MEDS: FLUoxetine HCL 20 MG CAP PO SCH (16:02)
--- NOTE | 2016-10-26 18:36 | HHI.PR ---
Subjective Remarks Cough with yellow sputum. Off o2 sat 95. Was dialyzed.CT chest shows a LLL infiltrate Objective Vital Signs Date Time Temp Pulse Resp B/P Pulse Ox O2 Delivery O2 Flow Rate FiO2 10/26/16 16:00 98.8 75 17 105/54 94 10/26/16 12:00 98.0 78 16 101/53 95 10/26/16 08:12 97 21 10/26/16 08:00 97.6 62 19 95/55 95 10/26/16 00:00 97.8 73 18 115/63 99 10/25/16 20:00 99.1 73 20 118/57 96 I/O 10/25/16 10/25/16 10/25/16 10/26/16 10/26/16 10/26/16 07:00 15:00 23:00 07:00 15:00 23:00 Intake Total 240 ml 480 ml 583 ml 812 ml 500 ml Output Total 325 ml 1400 ml 200 ml 400 ml Balance -85 ml -920 ml 383 ml 812 ml 100 ml Intake Oral 240 ml 480 ml 240 ml 120 ml 500 ml IV Total 0 ml 343 ml 692 ml Output Urine Total 325 ml 400 ml 200 ml 400 ml Hemodialysis 1000 ml # Voids 1 # Bowel Movements 0 3 0 0 0 Result Diagram: 10/25/16 0453 10/25/16 0427 Objective Remarks GENERAL: This thinly built, elderly white female in no distress HEENT: Head normocephalic. Pupils reactive and equal. Tongue is dry. Throat is dry. Nasal mucosa is clear NECK: Supple. No bruits. There is mild venous distension while laying flat. Trachea midline. No thyroid enlargement. CHEST: Equal movements. There is a Perma-Cath in the right upper chest. Breath sounds diminished at the periphery. Occasional coarse wheezes throughout both lung pat. Prolonged expirations. Crackles left base. HEART: The heart sounds are irregular S1-S2. No murmur. No S3. ABDOMEN: Soft. Nontender. No organomegaly. Bowel sounds are active. EXTREMITIES: There is a dressing in the left arm. Lower extremities, no edema. Peripheral pulses diminished. NEUROLOGIC: She is moving all extremities. 1+ reflexes with no gross motor deficits. Cranial nerves grossly intact. RECTAL: Exam is deferred. Assessment and Plan Assessment and Plan IMPRESSION 1. COPD with chronic bronchitis and emphysema. 2. End-stage renal disease on dialysis. 3. 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 4. Peripheral neuropathy. 5. Nicotine dependency. 6. Anxiety and depression. 7. Left Base Pneumonia. Plan : 1. Continue antibioitcs . 2. CXR on saturday 3. Nebs qid , duoneb. 4. Solumedrol 40 mg IV bid. 5. Mucomyst nebs 20 % ,2 CC tid. 6. Will schedule bronchoscopy if CXR still shows Infiltrate/atelectasis at left base 7. 6 Min walk test for Oxygen sat. Nadira Ulloa MD October 26, 2016 18:36
[2016-10-26] MEDS: ALPRAZolam 1 MG TAB PO SCH (20:31)
[2016-10-26] MEDS: cefTRIAXone INJ 1,000 MG in SODIUM CHLORIDE 0.9% INJ 100 ML IV SCH (20:33)
[2016-10-27] VITALS: BP 111/55; PULSE 70; RESP 20; TEMP 98.3; O2SAT 96
[2016-10-27] MEDS: HEPARIN SODIUM - SQ 10,000 UNITS/ML VIAL SQ SCH ×2 (01:46→12:31)
[2016-10-27] MEDS: oxyCODONE/ACETAMINOPHEN 5 MG/325 MG TAB PO PRN ×2 (05:53→12:29)
[2016-10-27] MEDS: MIDODRINE 5 MG TAB PO SCH ×3 (05:53→17:02)
[2016-10-27 06:38] LABS: AUTOMATED NEUTROPHIL # 7.3 TH/MM3 (1.8-7.7); BASOPHIL % 0.5 % (0.0-2.0); HEMATOCRIT 27.2 % (35.0-46.0); HEMO FLAGS DIFF FINAL; LYMPH % 5.3 % (9.0-44.0); LYMPHOCYTE # 0.4 TH/MM3 (1.0-4.8); MEAN CELL VOLUME 84.7 FL (80.0-100.0); MEAN CORPUSCULAR HEMOGLOBIN 29.1 PG (27.0-34.0); MEAN CORPUSCULAR HGB CONC 34.3 % (32.0-36.0); MONO % 3.6 % (0.0-8.0); NEUT % 90.6 % (16.0-70.0); PLATELET COUNT 205 TH/MM3 (150-450); RED BLOOD COUNT 3.21 MIL/MM3 (4.00-5.30)
[2016-10-27 07:12] LABS: BICARBONATE 25.5 MEQ/L (21.0-32.0); POTASSIUM 5.1 MEQ/L (3.5-5.1)
[2016-10-27] MEDS: RESP: ALBUTEROL 2.5 MG/IPRATROPIUM 0.5 MG NEB (SCH) NEB ×5 (07:41→20:21)
[2016-10-27 07:43] VITALS: O2SAT 98
[2016-10-27 08:00] VITALS: BP 130/62; PULSE 63; RESP 17; TEMP 97.3; O2SAT 97
[2016-10-27] MEDS: ALPRAZolam 0.5 MG TAB PO SCH (08:15)
[2016-10-27] MEDS: BUDESONIDE-FORMOTEROL 160/4.5 MCG INHALER INH SCH ×3 (09:00→21:30)
[2016-10-27] MEDS: SODIUM CHLORIDE 0.9% FLUSH 10 ML FLUSH IV FLUSH SCH ×2 (09:00→21:29)
[2016-10-27] MEDS: EPOETIN ALFA 4,000 UNITS/ML VIAL IV PRN (09:42)
[2016-10-27] MEDS: GENTAMICIN SULFATE (DIALYSIS USE ONLY) 20 MG/2 ML VIAL IV PRN (09:43)
[2016-10-27] MEDS: HEPARIN SODIUM - IV 10,000 UNITS/10 ML VIAL PRN (09:43)
--- NOTE | 2016-10-27 10:22 | HHI.NPPN ---
Subjective History of Present Illness Patient is 65-year-old female with a history of uremia nausea and vomiting approached ESRD, she has lung cancer and a chronic smoker as well Additional Remarks Patient seen during HD, alert, no SOB. Review of Systems General Constitutional: Fatigue Cardiovascular Cardiac: Edema, CUELLO Psych Psych: Anxiety Objective Data Data 10/26/16 10/27/16 19:00 07:00 Intake Total 500 ml 580 ml Output Total 400 ml 650 ml Balance 100 ml -70 ml Intake Oral 500 ml 480 ml IV Total 100 ml Output Urine Total 400 ml 650 ml # Bowel Movements 0 Vital Signs Date Time Temp Pulse Resp B/P Pulse Ox O2 Delivery O2 Flow Rate FiO2 10/27/16 08:00 97.3 63 17 130/62 97 10/27/16 07:43 98 Nasal Cannula 2.00 10/27/16 00:00 98.3 70 20 111/55 96 10/26/16 20:13 99 21 10/26/16 20:00 97.6 72 20 107/48 96 10/26/16 16:00 98.8 75 17 105/54 94 10/26/16 12:00 98.0 78 16 101/53 95 -: 10/27/16 0407 10/27/16 0407 Physical Exam General Appearance: No Acute Distress, Comfortable Neck Neck Exam: Neck Supple Pulmonary Resp Exam: Clear Bilaterally, Breath Sounds Equal, No Distress Cardiology CV Exam: Regular, Normal Sinus Rhythm Gastrointestinal/Abdomen GI Exam: Soft, Non-Tender, Bowel Sounds Present Extremeties Extremities Exam: No Edema Neurologic Neuro Exam: Alert, Awake, Oriented Psychiatric Psych Exam: Appropriate Responses Assessment/Plan Problem List: (1) ESRD (end stage renal disease) Plan: Patient is on HD now, remove fluid as tolerated. has Pneumonia await Clearance from Pulmonary. On Vanco. and Cefazolin. Remain afebrile, BP is stable. Hemodialysis will be arranged as an outpatient. (2) Open wound of left upper arm Plan: The wound appears clean She is on clindamycin Vascular recommended vancomycin (3) COPD (chronic obstructive pulmonary disease) Plan: Dr. Rodriguez help appreciated CT of the chest done she may have possible pneumonia Rocephin/ vancomycin Problem Qualifiers (1) COPD (chronic obstructive pulmonary disease): Qualified Code: J44.9 - Chronic obstructive pulmonary disease, unspecified COPD type Reji Lezama MD October 27, 2016 10:22
[2016-10-27] MEDS: CYPROHEPTADINE HCL 4 MG TAB PO SCH ×2 (12:30→21:29)
[2016-10-27] MEDS: CALCIUM ACETATE 667 MG CAP PO SCH ×2 (12:30→17:02)
[2016-10-27] MEDS: GABAPENTIN 100 MG CAP PO SCH ×2 (12:30→17:02)
[2016-10-27] MEDS: FAMOTIDINE 20 MG TAB PO SCH (12:30)
[2016-10-27] MEDS: CHOLECALCIFEROL (VIT D3) 1000 UNIT TAB PO SCH (12:30)
[2016-10-27] MEDS: methylPREDNISolone SOD SUCC 40 MG/1 ML VIAL IV SCH (12:31)
[2016-10-27] MEDS: DOCUSATE SODIUM 100 MG CAP PO SCH ×2 (12:31→21:29)
[2016-10-27] MEDS: NICOTINE 21 MG/24 HR PATCH T-DERMAL SCH (12:31)
[2016-10-27] MEDS: COLLAGENASE OINT 30 GM TUBE TOPICAL SCH (12:38)
[2016-10-27 16:00] VITALS: BP 114/54; PULSE 74; RESP 19; TEMP 96.9; O2SAT 98
[2016-10-27] MEDS: ALPRAZolam 1 MG TAB PO PRN (17:02)
[2016-10-27] MEDS: FLUoxetine HCL 20 MG CAP PO SCH (17:02)
[2016-10-27 20:00] VITALS: BP 106/55; PULSE 66; RESP 20; TEMP 98.2; O2SAT 94
[2016-10-27 20:22] VITALS: O2SAT 95
[2016-10-27] MEDS: cefTRIAXone INJ 1,000 MG in SODIUM CHLORIDE 0.9% INJ 100 ML IV SCH (21:29)
[2016-10-28] VITALS (7 sets, daily range): BP systolic 86–105; BP diastolic 45–56; PULSE 65–81; RESP 16–20; TEMP 96.9–98; O2SAT 95–99
[2016-10-28] MEDS: HEPARIN SODIUM - SQ 10,000 UNITS/ML VIAL SQ SCH ×3 (00:30→23:17)
[2016-10-28] MEDS: ALPRAZolam 1 MG TAB PO PRN ×3 (01:01→20:23)
[2016-10-28] MEDS: RESP: ALBUTEROL 2.5 MG/IPRATROPIUM 0.5 MG NEB (SCH) NEB ×4 (08:50→19:17)
[2016-10-28] MEDS: FAMOTIDINE 20 MG TAB PO SCH (08:52)
[2016-10-28] MEDS: GABAPENTIN 100 MG CAP PO SCH ×3 (08:52→17:13)
[2016-10-28] MEDS: DOCUSATE SODIUM 100 MG CAP PO SCH ×2 (08:52→20:23)
[2016-10-28] MEDS: NICOTINE 21 MG/24 HR PATCH T-DERMAL SCH (08:52)
[2016-10-28] MEDS: CYPROHEPTADINE HCL 4 MG TAB PO SCH ×2 (08:52→20:23)
[2016-10-28] MEDS: CALCIUM ACETATE 667 MG CAP PO SCH ×3 (08:52→17:12)
[2016-10-28] MEDS: CHOLECALCIFEROL (VIT D3) 1000 UNIT TAB PO SCH (08:52)
[2016-10-28] MEDS: BUDESONIDE-FORMOTEROL 160/4.5 MCG INHALER INH SCH ×2 (08:57→20:24)
[2016-10-28] MEDS: SODIUM CHLORIDE 0.9% FLUSH 10 ML FLUSH IV FLUSH SCH ×2 (08:59→20:23)
[2016-10-28] MEDS: MIDODRINE 5 MG TAB PO SCH ×3 (09:04→17:13)
[2016-10-28] MEDS: COLLAGENASE OINT 30 GM TUBE TOPICAL SCH (09:04)
--- NOTE | 2016-10-28 09:25 | HHI.NPPN ---
Subjective History of Present Illness Patient is 65-year-old female with a history of uremia nausea and vomiting approached ESRD, she has lung cancer and a chronic smoker as well Additional Remarks Patient is alert, no SOB, no dizziness. Review of Systems General Constitutional: Fatigue Cardiovascular Cardiac: Edema, CUELLO Psych Psych: Anxiety Objective Data Data 10/27/16 10/28/16 18:59 06:59 Intake Total 360 ml 600 ml Output Total 1500 ml 550 ml Balance -1140 ml 50 ml Intake Oral 360 ml 600 ml IV Total 0 ml Output Urine Total 0 ml 550 ml Hemodialysis 1500 ml # Bowel Movements 0 Vital Signs Date Time Temp Pulse Resp B/P Pulse Ox O2 Delivery O2 Flow Rate FiO2 10/28/16 08:53 98 21 10/28/16 08:00 97.6 65 16 89/45 99 10/28/16 00:00 97.9 65 20 99/56 95 10/27/16 20:22 95 10/27/16 20:00 98.2 66 20 106/55 94 10/27/16 16:00 96.9 74 19 114/54 98 -: 10/27/16 0407 10/27/16 0407 Physical Exam General Appearance: No Acute Distress, Comfortable Neck Neck Exam: Neck Supple Pulmonary Resp Exam: Clear Bilaterally, Breath Sounds Equal, No Distress Cardiology CV Exam: Regular, Normal Sinus Rhythm Gastrointestinal/Abdomen GI Exam: Soft, Non-Tender, Bowel Sounds Present Extremeties Extremities Exam: No Edema Neurologic Neuro Exam: Alert, Awake, Oriented Psychiatric Psych Exam: Appropriate Responses Assessment/Plan Problem List: (1) ESRD (end stage renal disease) Plan: Patient is on HD now, remove fluid as tolerated. has Pneumonia await Clearance from Pulmonary. On Vanco. and Cefazolin. Remain afebrile, BP is chronically low, on Midodrine, will follow. Hemodialysis will be arranged as an outpatient. (2) Open wound of left upper arm Plan: The wound appears clean She is on clindamycin Vascular recommended vancomycin (3) COPD (chronic obstructive pulmonary disease) Plan: Dr. Rodriguez help appreciated CT of the chest done she may have possible pneumonia Rocephin/ vancomycin Problem Qualifiers (1) COPD (chronic obstructive pulmonary disease): Qualified Code: J44.9 - Chronic obstructive pulmonary disease, unspecified COPD type Reji Lezama MD October 28, 2016 09:25
[2016-10-28] MEDS: FLUoxetine HCL 20 MG CAP PO SCH (17:13)
[2016-10-28] MEDS: cefTRIAXone INJ 1,000 MG in SODIUM CHLORIDE 0.9% INJ 100 ML IV SCH (20:23)
[2016-10-29] VITALS: BP 104/51; PULSE 70; RESP 17; TEMP 98; O2SAT 100
[2016-10-29] MEDS: MIDODRINE 5 MG TAB PO SCH ×3 (05:09→15:58)
[2016-10-29 08:00] VITALS: BP 94/53; PULSE 72; RESP 17; TEMP 98.3; O2SAT 93
[2016-10-29] MEDS: ALPRAZolam 1 MG TAB PO PRN ×2 (09:00→18:43)
[2016-10-29] MEDS: CYPROHEPTADINE HCL 4 MG TAB PO SCH ×2 (09:00→20:33)
[2016-10-29] MEDS: DOCUSATE SODIUM 100 MG CAP PO SCH ×2 (09:00→20:33)
[2016-10-29] MEDS: CHOLECALCIFEROL (VIT D3) 1000 UNIT TAB PO SCH (09:00)
[2016-10-29] MEDS: NICOTINE 21 MG/24 HR PATCH T-DERMAL SCH (09:00)
[2016-10-29] MEDS: GABAPENTIN 100 MG CAP PO SCH ×3 (09:00→16:01)
[2016-10-29] MEDS: FAMOTIDINE 20 MG TAB PO SCH (09:00)
[2016-10-29] MEDS: BUDESONIDE-FORMOTEROL 160/4.5 MCG INHALER INH SCH ×2 (09:01→20:33)
[2016-10-29] MEDS: SODIUM CHLORIDE 0.9% FLUSH 10 ML FLUSH IV FLUSH SCH (09:01)
[2016-10-29] MEDS: COLLAGENASE OINT 30 GM TUBE TOPICAL SCH (09:02)
[2016-10-29] MEDS: CALCIUM ACETATE 667 MG CAP PO SCH ×3 (09:02→15:58)
--- NOTE | 2016-10-29 09:23 | RADRPT ---
EXAM DATE/TIME: 10/29/2016 08:49 [facility] COMPARISON: CHEST SINGLE AP, October 24, 2016, 12:07. INDICATIONS : Short of breath, left lung infiltrate. MEDICAL HISTORY : None. SURGICAL HISTORY : None. ENCOUNTER: Subsequent ACUITY: 3 days PAIN SCORE: 0/10 LOCATION: Left lower chest FINDINGS: A single view of the chest demonstrates patchy opacities left mid lung and left lower lobe. Right-bjorn ed vascular catheter with tip in the cavoatrial junction.. Osseous structures are intact. CONCLUSION: 1. Left mid lung and left lower lobe density with associated volume loss. 2. Right-sided vascular catheter. Arthur Vizcaino MD on October 29, 2016 at 9:20 Board Certified Radiologist. This report was verified electronically.
--- NOTE | 2016-10-29 11:12 | PD.VS.PN ---
Subjective Subjective/Hospital Course Pt feels ok; getting used to HD Arm feels better Objective Vitals/I&O Date Time Temp Pulse Resp B/P Pulse Ox O2 Delivery O2 Flow Rate FiO2 10/29/16 08:00 98.3 72 17 94/53 93 10/29/16 00:00 98.0 70 17 104/51 100 10/28/16 20:00 97.9 75 17 101/54 95 10/28/16 18:00 96.9 77 17 105/51 97 10/28/16 16:00 98.0 81 16 86/46 97 10/28/16 12:00 97.8 77 16 91/50 96 10/29/16 10/29/16 10/29/16 06:59 14:59 22:59 Intake Total 240 ml Output Total 150 ml Balance 90 ml Physical Exam L UE with open incision medial arm. erythema resolved. + thrill. Laboratory Date/Time Procedure Status Source Growth 10/26/16 06:00 Legionella Antigen - Final Complete Urine Clean Catch PRESUMPTIVE NEGATIVE FOR LEGIONELLA P... 10/26/16 06:00 Streptococcus pneumoniae Antigen (M - Final Complete Urine Clean Catch PRESUMPTIVE NEGATIVE FOR STREPTOCOCCU... Imaging Last 48 hours Impressions Chest X-Ray 10/29/16 0000 Signed Impressions: Service Date/Time: Saturday, October 29, 2016 08:49 - CONCLUSION: 1. Left mid lung and left lower lobe density with associated volume loss. 2. Right-sided vascular catheter. Arthur Vizcaino MD Assessment and Plan Plan 1. Rec Vanc w/ HD 2. Collagenase to wound daily 3. likely to be able to transition to VAC in next day or two Eric Villar MD October 29, 2016 11:12
[2016-10-29 12:00] VITALS: BP 97/54; PULSE 73; RESP 18; TEMP 98.2; O2SAT 96
[2016-10-29] MEDS: HEPARIN SODIUM - SQ 10,000 UNITS/ML VIAL SQ SCH (12:23)
[2016-10-29] MEDS: FLUoxetine HCL 20 MG CAP PO SCH (15:58)
[2016-10-29 16:00] VITALS: BP 97/54; PULSE 89; RESP 17; TEMP 95.6; O2SAT 95
--- NOTE | 2016-10-29 17:59 | HHI.NPPN ---
Subjective History of Present Illness Patient is 65-year-old female with a history of uremia nausea and vomiting approached ESRD, she has lung cancer and a chronic smoker as well Additional Remarks Patient is alert, no SOB, no dizziness. Review of Systems General Constitutional: Fatigue Cardiovascular Cardiac: Edema, CUELLO Psych Psych: Anxiety Objective Data Data 10/28/16 10/29/16 19:00 07:00 Intake Total 62 ml 480 ml Output Total 475 ml 550 ml Balance -413 ml -70 ml Intake Oral 60 ml 480 ml IV Total 2 ml 0 ml Output Urine Total 475 ml 550 ml # Bowel Movements 0 Vital Signs Date Time Temp Pulse Resp B/P Pulse Ox O2 Delivery O2 Flow Rate FiO2 10/29/16 16:00 95.6 89 17 97/54 95 10/29/16 12:00 98.2 73 18 97/54 96 10/29/16 08:00 98.3 72 17 94/53 93 10/29/16 00:00 98.0 70 17 104/51 100 10/28/16 20:00 97.9 75 17 101/54 95 10/28/16 18:00 96.9 77 17 105/51 97 -: 10/27/16 0407 10/27/16 0407 Physical Exam General Appearance: No Acute Distress, Comfortable Neck Neck Exam: Neck Supple Pulmonary Resp Exam: Clear Bilaterally, Breath Sounds Equal, No Distress Cardiology CV Exam: Regular, Normal Sinus Rhythm Gastrointestinal/Abdomen GI Exam: Soft, Non-Tender, Bowel Sounds Present Integumentary Skin Remarks Left arm Extremeties Extremities Exam: No Edema Neurologic Neuro Exam: Alert, Awake, Oriented Psychiatric Psych Exam: Appropriate Responses Assessment/Plan Problem List: (1) ESRD (end stage renal disease) Plan: Patient is on HD now, remove fluid as tolerated. has Pneumonia await Clearance from Pulmonary. Discussed with Dr. Rodriguez and he is planning to do bronchoscopy tomorrow morning hemodialysis will be arranged afterwards On Vanco. and ceftriaxone Remain afebrile, BP is chronically low, on Midodrine, will follow. Hemodialysis will be arranged as an outpatient. (2) Open wound of left upper arm Plan: The wound appears clean Vascular recommended vancomycin (3) COPD (chronic obstructive pulmonary disease) Plan: Dr. Rodriguez help appreciated bronchoscopy in the morning Problem Qualifiers (1) COPD (chronic obstructive pulmonary disease): Qualified Code: J44.9 - Chronic obstructive pulmonary disease, unspecified COPD type Oscar Jurado MD October 29, 2016 17:59
[2016-10-29] MEDS ORDERED: DEXT 5%-NACL 0.45% 1000 ML INJ 1,000 ML IV SCH (19:03)
--- NOTE | 2016-10-29 19:03 | HHI.PR ---
Subjective Remarks Cough with yellow sputum. Off o2 sat 95. Was dialyzed.CT chest shows a LLL infiltrate Has no fever CXR shows a persistent infiltrate Objective Vital Signs Date Time Temp Pulse Resp B/P Pulse Ox O2 Delivery O2 Flow Rate FiO2 10/29/16 16:00 95.6 89 17 97/54 95 10/29/16 12:00 98.2 73 18 97/54 96 10/29/16 08:00 98.3 72 17 94/53 93 10/29/16 00:00 98.0 70 17 104/51 100 10/28/16 20:00 97.9 75 17 101/54 95 I/O 10/28/16 10/28/16 10/28/16 10/29/16 10/29/16 10/29/16 07:00 15:00 23:00 07:00 15:00 23:00 Intake Total 120 ml 62 ml 240 ml 240 ml 575 ml Output Total 250 ml 475 ml 400 ml 150 ml 700 ml Balance -130 ml -413 ml -160 ml 90 ml -125 ml Intake Oral 120 ml 60 ml 240 ml 240 ml 575 ml IV Total 2 ml 0 ml 0 ml Output Urine Total 250 ml 475 ml 400 ml 150 ml 700 ml # Bowel Movements 0 0 Result Diagram: 10/27/1640610/27/16406 Objective Remarks GENERAL: This thinly built, elderly white female in no distress HEENT: Head normocephalic. Pupils reactive and equal. Tongue is dry. Throat is dry. Nasal mucosa is clear NECK: Supple. No bruits. There is no venous distension . Trachea midline. No thyroid enlargement. CHEST: Equal movements. There is a Perma-Cath in the right upper chest. Breath sounds diminished at the periphery. Prolonged expirations. Crackles left base. HEART: The heart sounds are irregular S1-S2. No murmur. No S3. ABDOMEN: Soft. Nontender. No organomegaly. Bowel sounds are active. EXTREMITIES: There is a dressing in the left arm. Lower extremities, no edema. Peripheral pulses diminished. NEUROLOGIC: She is moving all extremities. 1+ reflexes with no gross motor deficits. Cranial nerves grossly intact. RECTAL: Exam is deferred. Assessment and Plan Assessment and Plan IMPRESSION 1. COPD with chronic bronchitis and emphysema. 2. End-stage renal disease on dialysis. 3. 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 4. Peripheral neuropathy. 5. Nicotine dependency. 6. Anxiety and depression. 7. Left Base Pneumonia. Plan : 1. Continue antibioitcs . 2. Adv Bronchoscopy to Evaluate left lung infiltrate 3. Nebs qid , duoneb. 4. D/C Solumedrol 5. Mucomyst nebs 20 % ,2 CC tid. 6. Will get Coags and Hold heparin 7. Consent for Bronch Nadira Ulloa MD October 29, 2016 19:03
[2016-10-29] MEDS ORDERED: RESP: ALBUTEROL CONC 2.5 MG/0.5 ML NEB NEB SCH (19:15)
[2016-10-29 20:00] VITALS: BP 102/56; PULSE 77; RESP 20; TEMP 97.8; O2SAT 94
[2016-10-29] MEDS: cefTRIAXone INJ 1,000 MG in SODIUM CHLORIDE 0.9% INJ 100 ML IV SCH (20:34)
[2016-10-30] VITALS (7 sets, daily range): BP systolic 92–104; BP diastolic 49–55; PULSE 67–82; RESP 16–20; TEMP 97.1–98.9; O2SAT 95–100
[2016-10-30] MEDS: ZOLPIDEM TARTRATE 5 MG TAB PO PRN (00:03)
[2016-10-30 05:43] LABS: AUTOMATED NEUTROPHIL # 2.7 TH/MM3 (1.8-7.7); BASOPHIL # 0.1 TH/MM3 (0-0.2); EOSINOPHIL # 0.3 TH/MM3 (0-0.4); EOSINOPHIL % 6.5 % (0.0-4.0); HEMATOCRIT 27.9 % (35.0-46.0); HEMO FLAGS DIFF FINAL; LYMPH % 10.7 % (9.0-44.0); LYMPHOCYTE # 0.5 TH/MM3 (1.0-4.8); MEAN CELL VOLUME 87.7 FL (80.0-100.0); MEAN CORPUSCULAR HEMOGLOBIN 28.4 PG (27.0-34.0); MEAN CORPUSCULAR HGB CONC 32.4 % (32.0-36.0); MONO % 25.6 % (0.0-8.0); NEUT % 55.2 % (16.0-70.0); PLATELET COUNT 207 TH/MM3 (150-450); RED BLOOD COUNT 3.18 MIL/MM3 (4.00-5.30); RED CELL DISTRIBUTION WIDTH 13.7 % (11.6-17.2)
[2016-10-30] MEDS: MIDODRINE 5 MG TAB PO SCH ×3 (05:43→17:00)
[2016-10-30 06:08] LABS: POTASSIUM 3.9 MEQ/L (3.5-5.1)
[2016-10-30] MEDS: CALCIUM ACETATE 667 MG CAP PO SCH ×3 (10:10→17:15)
[2016-10-30] MEDS: GABAPENTIN 100 MG CAP PO SCH ×3 (10:10→17:24)
[2016-10-30] MEDS: ALPRAZolam 1 MG TAB PO PRN ×2 (10:11→20:38)
[2016-10-30] MEDS: FAMOTIDINE 20 MG TAB PO SCH (10:11)
[2016-10-30] MEDS: CHOLECALCIFEROL (VIT D3) 1000 UNIT TAB PO SCH (10:11)
[2016-10-30] MEDS: CYPROHEPTADINE HCL 4 MG TAB PO SCH ×2 (10:11→20:38)
[2016-10-30] MEDS: DOCUSATE SODIUM 100 MG CAP PO SCH ×2 (10:12→20:38)
[2016-10-30] MEDS: NICOTINE 21 MG/24 HR PATCH T-DERMAL SCH (10:13)
[2016-10-30] MEDS: BUDESONIDE-FORMOTEROL 160/4.5 MCG INHALER INH SCH ×2 (10:15→20:39)
[2016-10-30] MEDS: COLLAGENASE OINT 30 GM TUBE TOPICAL SCH (10:16)
--- NOTE | 2016-10-30 10:31 | PD.VS.PN ---
Subjective Subjective/Hospital Course Pt sitting in chair alert in NAD this am Pt denies pain to LUE Objective Vitals/I&O Date Time Temp Pulse Resp B/P Pulse Ox O2 Delivery O2 Flow Rate FiO2 10/30/16 08:00 98.8 67 17 100/55 95 10/30/16 04:00 98.9 76 20 100/52 96 10/30/16 00:04 104/52 10/29/16 20:00 97.8 77 20 102/56 94 10/29/16 16:00 95.6 89 17 97/54 95 10/29/16 12:00 98.2 73 18 97/54 96 10/30/16 10/30/16 10/30/16 07:00 15:00 23:00 Intake Total 0 ml Output Total 400 ml Balance -400 ml Physical Exam GENERAL: A&OX3, NAD, GCS15 SKIN: Warm and dry. LUE dehisced area noted at the proximal aspect of incision. NO R/D/S/O, Dressing I/C/D CARDIOVASCULAR: +S1,S2 RESPIRATORY: Breath sounds equal bilaterally. No accessory muscle use. 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 + thrill palpable over AVF Pt denies hand pain Laboratory Laboratory Tests Test 10/30/16 05:13 White Blood Count 5.0 Red Blood Count 3.18 Hemoglobin 9.0 Hematocrit 27.9 Mean Corpuscular Volume 87.7 Mean Corpuscular Hemoglobin 28.4 Mean Corpuscular Hemoglobin 32.4 Concent Red Cell Distribution Width 13.7 Platelet Count 207 Mean Platelet Volume 7.3 Neutrophils (%) (Auto) 55.2 Lymphocytes (%) (Auto) 10.7 Monocytes (%) (Auto) 25.6 Eosinophils (%) (Auto) 6.5 Basophils (%) (Auto) 2.0 Neutrophils # (Auto) 2.7 Lymphocytes # (Auto) 0.5 Monocytes # (Auto) 1.3 Eosinophils # (Auto) 0.3 Basophils # (Auto) 0.1 CBC Comment DIFF FINAL Differential Comment Sodium Level 138 Potassium Level 3.9 Chloride Level 100 Carbon Dioxide Level 29.0 Anion Gap 9 Blood Urea Nitrogen 63 Creatinine 4.91 Estimat Glomerular Filtration 9 Rate Random Glucose 97 Calcium Level 8.9 Phosphorus Level 4.4 Albumin 3.3 Date/Time Procedure Status Source Growth 10/26/16 06:00 Legionella Antigen - Final Complete Urine Clean Catch PRESUMPTIVE NEGATIVE FOR LEGIONELLA P... 10/26/16 06:00 Streptococcus pneumoniae Antigen (M - Final Complete Urine Clean Catch PRESUMPTIVE NEGATIVE FOR STREPTOCOCCU... Imaging Last 48 hours Impressions Chest X-Ray 10/29/16 0000 Signed Impressions: Service Date/Time: Saturday, October 29, 2016 08:49 - CONCLUSION: 1. Left mid lung and left lower lobe density with associated volume loss. 2. Right-sided vascular catheter. Arhtur Vizcaino MD Assessment and Plan Plan PLAN Place Wound Vac to Left upper extremity D/C Collagenase wound therapy Keyla SHIRLEY [facility] [phone] Keyla Nichols October 30, 2016 10:31
[2016-10-30] MEDS ORDERED: SODIUM CHLORIDE 0.9% 20 ML VIAL ONE (11:00)
[2016-10-30] MEDS ORDERED: LIDOCAINE HCL 2% 50 ML VIAL ONE (11:01)
[2016-10-30] MEDS ORDERED: LIDOCAINE VISCOUS 2% SOLN 15 ML UDC ONE (11:01)
[2016-10-30] MEDS ORDERED: EPINEPHrine HCL (1:1000) 1 MG/ML VIAL ONE (11:01)
[2016-10-30] MEDS ORDERED: RESP: ALBUTEROL 2.5 MG/3 ML NEB (SCH) ONE (11:02)
[2016-10-30] MEDS ORDERED: MIDAZOLAM HCL 2 MG/2 ML VIAL ONE (11:39)
[2016-10-30] MEDS ORDERED: FAMOTIDINE 20 MG/2 ML VIAL ONE (11:39)
[2016-10-30] MEDS ORDERED: ONDANSETRON HCL 4 MG/2 ML VIAL IV PUSH ONE (12:00)
[2016-10-30] MEDS ORDERED: PROPOFOL 200 MG/20 ML AMP IV ONE (12:00)
[2016-10-30] MEDS ORDERED: ePHEDrine/NS 25 MG/5 ML SYR IV ONE (12:00)
[2016-10-30] MEDS ORDERED: RESP: ALBUTEROL 2.5 MG/3 ML NEB (PRN) NEB (12:30)
[2016-10-30] MEDS ORDERED: DO NOT ADM ANY ANTICOAGULANT DRUGS PRN (12:30)
--- NOTE | 2016-10-30 13:24 | RADRPT ---
EXAM DATE/TIME: 10/30/2016 12:43 [place] COMPARISON: CHEST SINGLE AP, October 29, 2016, 8:49. INDICATIONS : Post bronchoscopy. MEDICAL HISTORY : Myocardial infarction. Osteoarthritis. Hernia, hiatal. Carcinoma, lung. Brain aneurysm. Chest pain. C OPD. HTN. Diabetes. Hep C. Pneumonia. GERD. ESRD. Anticoagulant therapy, Aspirin. Depression. Anxiety SURGICAL HISTORY : Cholecystectomy. Tubal ligation. Brain aneurysm with stent. Cardiac cath. Achilles tendon surgery. Ra diation therapy. ENCOUNTER: Subsequent ACUITY: 4 - 6 days PAIN SCORE: 7/10 LOCATION: Left chest FINDINGS: A single view of the chest demonstrates persistent opacity in the left midlung and left lower lobe. T here is associated volume loss. Right-sided vascular catheter is unchanged.. Osseous structures are intact. CONCLUSION: Stable chest including persistent density in the left midlung and left lower lobe with associated vol ume loss. No pneumothorax. Arthur Vizcaino MD on October 30, 2016 at 13:21 Board Certified Radiologist. This report was verified electronically.
--- NOTE | 2016-10-30 14:17 | HHI.NPPN ---
Subjective History of Present Illness Patient is 65-year-old female with a history of uremia nausea and vomiting approached ESRD, she has lung cancer and a chronic smoker as well Additional Remarks Patient is alert, no SOB, no dizziness. Review of Systems General Constitutional: Fatigue Cardiovascular Cardiac: Edema, CUELLO Psych Psych: Anxiety Objective Data Data 10/29/16 10/30/16 19:00 07:00 Intake Total 575 ml 100 ml Output Total 700 ml 400 ml Balance -125 ml -300 ml Intake Oral 575 ml 0 ml IV Total 0 ml 100 ml Output Urine Total 700 ml 400 ml # Bowel Movements 0 0 Vital Signs Date Time Temp Pulse Resp B/P Pulse Ox O2 Delivery O2 Flow Rate FiO2 10/30/16 13:26 98.2 81 16 98/52 98 10/30/16 13:00 98.9 102 20 98/50 99 Nasal Cannula 2 10/30/16 12:45 95 20 102/55 97 Nasal Cannula 2 10/30/16 12:30 106 16 99 Nasal Cannula 2 10/30/16 12:28 99.1 107 20 118/58 99 Nasal Cannula 2 10/30/16 08:00 98.8 67 17 100/55 95 10/30/16 04:00 98.9 76 20 100/52 96 10/30/16 00:04 104/52 10/29/16 20:00 97.8 77 20 102/56 94 10/29/16 16:00 95.6 89 17 97/54 95 -: 10/30/16 0513 10/30/16 0513 Microbiology 10/30/16 Bronchial Aspirate Culture, Received Pending 10/30/16 Acid Fast Stain, Received Pending 10/30/16 Mycobacterial Culture, Received Pending 10/30/16 Fungal Smear, Received Pending 10/30/16 Fungal Culture, Received Pending 10/30/16 Gram Stain, Received Pending 10/30/16 Bronchial Culture, Received Pending 10/30/16 Acid Fast Stain, Received Pending 10/30/16 Mycobacterial Culture, Received Pending 10/30/16 Fungal Smear, Received Pending 10/30/16 Fungal Culture, Received Pending Physical Exam General Appearance: No Acute Distress, Comfortable Neck Neck Exam: Neck Supple Pulmonary Resp Exam: Clear Bilaterally, Breath Sounds Equal, No Distress Cardiology CV Exam: Regular, Normal Sinus Rhythm Gastrointestinal/Abdomen GI Exam: Soft, Non-Tender, Bowel Sounds Present Integumentary Skin Remarks Left arm Extremeties Extremities Exam: No Edema Neurologic Neuro Exam: Alert, Awake, Oriented Psychiatric Psych Exam: Appropriate Responses Assessment/Plan Problem List: (1) ESRD (end stage renal disease) Plan: Patient is on HD now, remove fluid as tolerated. has Pneumonia await Clearance from Pulmonary. bronchoscopy hemodialysis she refused On Vanco. and ceftriaxone Remain afebrile, BP is chronically low, on Midodrine, will follow. Hemodialysis will be arranged as an outpatient. (2) Open wound of left upper arm Plan: The wound appears clean Vascular recommended vancomycin (3) COPD (chronic obstructive pulmonary disease) Plan: Dr. Rodriguez help appreciated bronchoscopy done Problem Qualifiers (1) COPD (chronic obstructive pulmonary disease): Qualified Code: J44.9 - Chronic obstructive pulmonary disease, unspecified COPD type Oscar Jruado MD October 30, 2016 14:17
[2016-10-30] MEDS: FLUoxetine HCL 20 MG CAP PO SCH (17:14)
[2016-10-30] MEDS: cefTRIAXone INJ 1,000 MG in SODIUM CHLORIDE 0.9% INJ 100 ML IV SCH (20:39)
[2016-10-31] VITALS (8 sets, daily range): BP systolic 81–122; BP diastolic 45–57; PULSE 56–79; RESP 16–22; TEMP 97.1–98.1; O2SAT 95–96
[2016-10-31] MEDS: ZOLPIDEM TARTRATE 5 MG TAB PO PRN (00:49)
[2016-10-31] MEDS: MIDODRINE 5 MG TAB PO SCH ×3 (04:53→17:01)
[2016-10-31] MEDS: BUDESONIDE-FORMOTEROL 160/4.5 MCG INHALER INH SCH ×2 (07:59→20:55)
[2016-10-31] MEDS: NICOTINE 21 MG/24 HR PATCH T-DERMAL SCH (08:01)
[2016-10-31] MEDS: CYPROHEPTADINE HCL 4 MG TAB PO SCH ×2 (08:01→20:54)
[2016-10-31] MEDS: CHOLECALCIFEROL (VIT D3) 1000 UNIT TAB PO SCH (08:02)
[2016-10-31] MEDS: ALPRAZolam 1 MG TAB PO PRN ×2 (08:02→16:18)
[2016-10-31] MEDS: FAMOTIDINE 20 MG TAB PO SCH (08:02)
[2016-10-31] MEDS: GABAPENTIN 100 MG CAP PO SCH ×3 (08:02→17:53)
[2016-10-31] MEDS: DOCUSATE SODIUM 100 MG CAP PO SCH ×2 (08:02→20:53)
[2016-10-31] MEDS: CALCIUM ACETATE 667 MG CAP PO SCH ×3 (09:30→17:53)
[2016-10-31] MEDS ORDERED: SODIUM CHLOR 0.9% 1000 ML INJ 1,000 ML IV PRN ×3 (10:05)
--- NOTE | 2016-10-31 10:11 | HHI.NPPN ---
Subjective History of Present Illness Patient is 65-year-old female with a history of uremia nausea and vomiting approached ESRD, she has lung cancer and a chronic smoker as well Additional Remarks Patient is alert, no SOB, no dizziness. Review of Systems General Constitutional: Fatigue Cardiovascular Cardiac: Edema, CUELLO Psych Psych: Anxiety Objective Data Data 10/30/16 10/31/16 19:00 07:00 Intake Total 125 ml 720 ml Output Total 600 ml 650 ml Balance -475 ml 70 ml Intake Oral 0 ml 720 ml IV Total 25 ml Other 100 ml Output Urine Total 600 ml 650 ml # Voids 0 # Bowel Movements 0 0 Vital Signs Date Time Temp Pulse Resp B/P Pulse Ox O2 Delivery O2 Flow Rate FiO2 10/31/16 08:00 97.9 63 16 99/55 95 10/31/16 04:38 86/48 10/31/16 04:00 97.4 65 20 81/45 96 10/31/16 00:00 98.1 71 22 90/51 95 10/30/16 20:00 98.5 82 20 92/49 98 10/30/16 17:43 99 Nasal Cannula 21 10/30/16 16:00 97.1 74 16 100/51 100 10/30/16 13:26 98.2 81 16 98/52 98 10/30/16 13:00 98.9 102 20 98/50 99 Nasal Cannula 2 10/30/16 12:45 95 20 102/55 97 Nasal Cannula 2 10/30/16 12:30 106 16 99 Nasal Cannula 2 10/30/16 12:28 99.1 107 20 118/58 99 Nasal Cannula 2 -: 10/30/16 0513 10/30/16 0513 Microbiology 10/30/16 Bronchial Aspirate Culture, Received Pending 10/30/16 Acid Fast Stain, Received Pending 10/30/16 Mycobacterial Culture, Received Pending 10/30/16 Fungal Smear - Final, Resulted NO FUNGAL ELEMENTS SEEN. 10/30/16 Fungal Culture, Resulted Pending 10/30/16 Gram Stain - Final, Resulted 10/30/16 Bronchial Culture, Resulted Pending 10/30/16 Acid Fast Stain, Received Pending 10/30/16 Mycobacterial Culture, Received Pending 10/30/16 Fungal Smear - Final, Resulted NO FUNGAL ELEMENTS SEEN. 10/30/16 Fungal Culture, Resulted Pending Physical Exam General Appearance: No Acute Distress, Comfortable Neck Neck Exam: Neck Supple Pulmonary Resp Exam: Clear Bilaterally, Breath Sounds Equal, No Distress Cardiology CV Exam: Regular, Normal Sinus Rhythm Gastrointestinal/Abdomen GI Exam: Soft, Non-Tender, Bowel Sounds Present Integumentary Skin Remarks Left arm Extremeties Extremities Exam: No Edema Neurologic Neuro Exam: Alert, Awake, Oriented Psychiatric Psych Exam: Appropriate Responses Assessment/Plan Problem List: (1) ESRD (end stage renal disease) Plan: Patient is on HD now, remove fluid as tolerated. has Pneumonia await Clearance from Pulmonary. bronchoscopy washings pending HD proceedings 1 L UF BP lower side Midodrine increase 10 mg TID DC plans for today (2) Open wound of left upper arm Plan: The wound appears clean Vascular recommended vancomycin (3) COPD (chronic obstructive pulmonary disease) Plan: Dr. Rodriguez help appreciated bronchoscopy done Problem Qualifiers (1) COPD (chronic obstructive pulmonary disease): Qualified Code: J44.9 - Chronic obstructive pulmonary disease, unspecified COPD type Oscar Jurado MD October 31, 2016 10:11
[2016-10-31] MEDS ORDERED: NITROGLYCERIN 0.4 MG SL 25 TABS/BTL SL PRN (10:15)
[2016-10-31] MEDS ORDERED: EPOETIN ALFA 4,000 UNITS/ML VIAL IV PRN (10:15)
[2016-10-31] MEDS ORDERED: diphenhydrAMINE HCL 25 MG CAP PO PRN (10:15)
[2016-10-31] MEDS ORDERED: HEPARIN SODIUM - IV 10,000 UNITS/10 ML VIAL IVF PRN (10:15)
[2016-10-31] MEDS ORDERED: ACETAMINOPHEN 325 MG TAB PO PRN (10:15)
[2016-10-31] MEDS ORDERED: SODIUM CHLORIDE 0.9% FLUSH 10 ML FLUSH IV FLUSH PRN (10:15)
[2016-10-31] MEDS ORDERED: cloNIDine HCL 0.1 MG TAB PO PRN (10:15)
[2016-10-31] MEDS ORDERED: HEPARIN SODIUM - IV 10,000 UNITS/10 ML VIAL PRN (10:15)
[2016-10-31] MEDS ORDERED: GELATIN 12 MM/7 MM FOAM TOP PRN (10:15)
[2016-10-31] MEDS ORDERED: MANNITOL 12.5 GM/50 ML VIAL IV PRN (10:15)
[2016-10-31] MEDS ORDERED: ONDANSETRON HCL 4 MG/2 ML VIAL IV PRN (10:15)
[2016-10-31] MEDS ORDERED: GENTAMICIN SULFATE (DIALYSIS USE ONLY) 20 MG/2 ML VIAL IV PRN (10:15)
[2016-10-31] MEDS ORDERED: ALBUMIN HUMAN 25% 25 GM/100 ML BAGP IV PRN (10:15)
[2016-10-31] MEDS ORDERED: VANCOMYCIN INJ 1,000 MG in SODIUM CHLOR 0.9% 250 ML INJ 250 ML IV SCH (11:00)
--- NOTE | 2016-10-31 11:30 | MR ---
cc: TAD ULLOA DATE 10/30/2016 PROCEDURE PERFORMED Fiberoptic bronchoscopy with brushings, washings and lavage. ANESTHESIA General with LMA SURGEON Dr. Ashley Ulloa PREOPERATIVE DIAGNOSIS Persistent left lung infiltrate. POSTOPERATIVE DIAGNOSIS Persistent left lung infiltrate. PROCEDURE AND FINDINGS The patient was sedated with IV Diprivan. The LMA was used against the larynx. The Olympus 180 bronchoscope was used to visualize the bronchi. The scope was advanced via the LMA into the larynx. 2 cc of 2% Xylocaine was used to anesthetize the vocal cords. The scope was then advanced into the trachea and lay. Trachea and lay appeared normal. The scope was then advanced into the right mainstem and right upper lobe segmental bronchi. The right upper lobe bronchi demonstrated mucoid secretions and mild endobronchitis. No endobronchial lesions were seen. Next, the right middle and lower lobe segmental bronchi were visualized. These bronchi demonstrated mucoid secretions and moderate endobronchitis and secretions were suctioned out. No endobronchial lesions were seen here. The scope was then advanced into the left mainstem and left upper lobe segmental bronchi. The left upper lobe bronchi demonstrated mucosal edema with ridging and mucoid secretions. These were suctioned out. Saline washings were done. No endobronchial masses were seen. Next, the left lower lobe segmental bronchi were visualized which demonstrated thick mucoid secretions and moderate endobronchitis and mucosal ridging. Brushings were done for cytology and micro. There were no endobronchial masses seen. Saline washings and lavage were carried out until clear. The procedure was then terminated. The patient tolerated the procedure well. MD CHERELLE Arboleda/ERLIN /12:21 PM /11:21 AM
[2016-10-31] MEDS ORDERED: MIDO5TAB PO (14:28)
[2016-10-31] MEDS ORDERED: CALC667C PO (14:28)
[2016-10-31] MEDS ORDERED: FLUO20CA4 PO (14:28)
--- NOTE | 2016-10-31 14:32 | HHI.DS ---
Discharge Summary Admission Date October 24, 2016 at 10:19 Admitting Diagnosis End-stage renal disease new onset (1) ESRD (end stage renal disease) Diagnosis: Principal Plan: Patient has developed end-stage renal disease and needs hemodialysis, her fistula is not ready and I had talked to her to get a permcath, she will be going this afternoon. Continue to monitor her situation and dialysis will be initiated (2) Open wound of left upper arm Diagnosis: Secondary Plan: She is on clindamycin and will resume that and asked Dr. Villar input (3) COPD (chronic obstructive pulmonary disease) Diagnosis: Secondary Plan: Counseled her against smoking she has a history of lung cancer and this was strongly emphasized (4) Normocytic anemia Diagnosis: Secondary Plan: Likely due to chronic kidney disease Consultants Dr. Rodriguez and Dr. Villar Brief History Patient is a 65-year-old white female with history of COPD, lung cancer status post left which resection of the tumor, chronic smoker, chronic kidney disease who has developed uremic symptoms, she did have an AV fistula procedure done a few weeks ago and her left arm wound is now open, she sees Dr. Villar, according to her daughter she was wearing long sleeves and the then scab was picked on by her and it led to wound dehiscence, she is being followed by vascular surgery. Patient then developed some nausea committed with some vomiting and lack of appetite for the last week the creatinine is trending upwards. She has been admitted to to have Permcath placed and initiate hemodialysis. CBC/BMP: 10/30/16 0513 10/30/16 0513 Significant Findings Laboratory Tests Test 10/30/16 05:13 Red Blood Count 3.18 MIL/MM3 (4.00-5.30) Hemoglobin 9.0 GM/DL (11.6-15.3) Hematocrit 27.9 % (35.0-46.0) Monocytes (%) (Auto) 25.6 % (0.0-8.0) Eosinophils (%) (Auto) 6.5 % (0.0-4.0) Lymphocytes # (Auto) 0.5 TH/MM3 (1.0-4.8) Monocytes # (Auto) 1.3 TH/MM3 (0-0.9) Blood Urea Nitrogen 63 MG/DL (7-18) Creatinine 4.91 MG/DL (0.50-1.00) Estimat Glomerular Filtration 9 ML/MIN (>89) Rate Albumin 3.3 GM/DL (3.4-5.0) PE at Discharge GENERAL: Well-nourished, well-developed patient. SKIN: Warm and dry. HEAD: Normocephalic. EYES: No scleral icterus. No injection or drainage. NECK: Supple, trachea midline. No JVD or lymphadenopathy. CARDIOVASCULAR: Regular rate and rhythm without murmurs, gallops, or rubs. RESPIRATORY: Breath sounds equal bilaterally. No accessory muscle use. GASTROINTESTINAL: Abdomen soft, non-tender, nondistended. EXTREMITIES: No cyanosis, or edema. Left arm with dressing NEUROLOGICAL: Awake, alert, and oriented x 3. Non-focal. Hospital Course Patient is admitted and started on wound dressing on the left arm, started on hemodialysis using permacath tolerated well her blood pressure on low and she was started on midodrine, pulmonary was consulted due to concerns with pneumonia and the recommendations were followed a bronchoscopy was done. Vascular surgery followed to for the left arm wound over fistula and the recommendations were to have a wound vacuum placed. She was depressed and restarted on Prozac as well patient the will be scheduled to start dialysis on Saturday at [facility] as an outpatient, she was counseled to stop smoking. Pt Condition on Discharge: Good Discharge Disposition: Discharge Home Discharge Instructions DIET: Follow Instructions for: Renal Failure Diet Additional Diet Instructions: Stop smoking Activities you can perform: Weight Bearing as Wanda Activities to Avoid: Strenuous Activity New Medications: Calcium Acetate (Phosphate Bin (Calcium Acetate) 667 Mg Cap 667 MG PO TIDPC dialysis #180 Ref 3 CAP Fluoxetine (Fluoxetine) 20 Mg Cap 20 MG PO DAILY@1600 depression #30 Ref 5 CAP Midodrine (Midodrine) 5 Mg Tab 10 MG PO TID@07,12,17 low BP #90 Ref 5 TAB Continued Medications: Alprazolam (Alprazolam) 0.5 Mg Tab 1 MG PO BID ANXIETY Ref [address] (Aspirin 81) 81 Mg Tabdr 81 MG PO DAILY Ref 0 TAB Budesonide-Formoterol Inh (Symbicort Inh) 160-4.5 Mcg/Act Aero 2 PUFF INH Q12HR #1 Ref 0 INHALER Calcium Carbonate (Antacid) (Tums) 500 Mg Chew 500 MG CHEW DAILY PRN HEARTBURN Ref 0 TAB Cholecalciferol (Vitamin D3) 2,000 Unit Tab 2000 UNITS PO DAILY Nutritional Supplement #1 Ref 0 BOTTLE Docusate Sodium (Docusate Sodium) 100 Mg Cap 100 MG PO BID Prevent Constipation #60 Ref 0 CAP Famotidine (Famotidine) 20 Mg Tab 20 MG PO DAILY #60 Ref 0 TAB Gabapentin (Gabapentin) 100 Mg Cap 100 MG PO TID #90 Ref 0 CAP Guaifenesin ER 12 HR (Mucinex ER 12 HR) 600 Mg Melania 600 MG PO BID Chest Congestion/Cough Ref 0 TAB Ipratropium-Albuterol Neb (Duoneb) 0.5-2.5 Mg/3 Ml Neb 1 NEBULE INH Q6HR NEB Breathing Treatment #120 Ref 0 NEBULE Oxycodone HCl (Oxycodone Hydrochloride) 5 Mg Cap 10 MG PO Q6HR PRN PAIN 1 TO 10 AND/OR AGITATION Tiotropium Inh (Spiriva Handihaler) 18 Mcg Cap 18 MCG INH DAILY 1 capsule = 18 mcg COPD #30 Ref 0 CAP Tolterodine (Tolterodine) 1 Mg Tab 1 MG PO DAILY Urinary Symptom Managemen #60 Ref 0 TAB Discontinued Medications: Clindamycin (Clindamycin) 300 Mg Cap 600 MG PO BID Infection Ref 0 CAP Oscar Jurado MD October 31, 2016 14:32
[2016-10-31] MEDS: FLUoxetine HCL 20 MG CAP PO SCH (16:17)
--- NOTE | 2016-10-31 17:09 | HHI.PR ---
Subjective Remarks Feels better today. Off o2 sat 95. Was dialyzed.CT chest shows a LLL infiltrate Has no fever Bronch result pending . Wants to go home Objective Vital Signs Date Time Temp Pulse Resp B/P Pulse Ox O2 Delivery O2 Flow Rate FiO2 10/31/16 17:02 95 10/31/16 13:23 97.2 79 16 113/53 95 10/31/16 08:00 97.9 63 16 99/55 95 10/31/16 04:38 86/48 10/31/16 04:00 97.4 65 20 81/45 96 10/31/16 00:00 98.1 71 22 90/51 95 10/30/16 20:00 98.5 82 20 92/49 98 10/30/16 17:43 99 Nasal Cannula 21 I/O 10/30/16 10/30/16 10/30/16 10/31/16 10/31/16 10/31/16 07:00 15:00 23:00 07:00 15:00 23:00 Intake Total 0 ml 125 ml 240 ml 480 ml 240 ml Output Total 400 ml 600 ml 650 ml 2000 ml Balance -400 ml -475 ml 240 ml -170 ml -1760 ml Intake Oral 0 ml 0 ml 240 ml 480 ml 240 ml IV Total 0 ml 25 ml Other 100 ml Output Urine Total 400 ml 600 ml 650 ml 1000 ml Hemodialysis 1000 ml # Voids 0 # Bowel Movements 0 0 0 0 0 Result Diagram: 10/30/1651210/30/16512 Objective Remarks GENERAL: This thinly built, elderly white female in no distress HEENT: Head normocephalic. Pupils reactive and equal. Tongue is dry. Throat is dry. Nasal mucosa is clear NECK: Supple. No bruits. There is no venous distension . Trachea midline. No thyroid enlargement. CHEST: Equal movements. There is a Perma-Cath in the right upper chest. Breath sounds diminished at the periphery. Prolonged expirations. Occ Crackles left base. HEART: The heart sounds are irregular S1-S2. No murmur. No S3. ABDOMEN: Soft. Nontender. No organomegaly. Bowel sounds are active. EXTREMITIES: There is a dressing in the left arm. Lower extremities, no edema. Peripheral pulses diminished. NEUROLOGIC: She is moving all extremities. 1+ reflexes with no gross motor deficits. Cranial nerves grossly intact. RECTAL: Exam is deferred. Assessment and Plan Assessment and Plan IMPRESSION 1. COPD with chronic bronchitis and emphysema. 2. End-stage renal disease on dialysis. 3. 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 4. Peripheral neuropathy. 5. Nicotine dependency. 6. Anxiety and depression. 7. Left Base Pneumonia. Plan : 1. Continue Po antibioitcs for 5 days. 2. OK to go home 3. Nebs qid , duoneb. 4. Add prednisone 20 mg daily and taper 5. F/U Chest X ray in 2 weeks 6. Will see as OP in 2 weeks Nadira Ulloa MD October 31, 2016 17:09 Nadira Ulloa MD October 31, 2016 17:09
[2016-10-31] MEDS: cefTRIAXone INJ 1,000 MG in SODIUM CHLORIDE 0.9% INJ 100 ML IV SCH (20:53)
[2016-11-01] VITALS: BP 114/56; PULSE 61; RESP 18; TEMP 97.6; O2SAT 95
[2016-11-01] MEDS: ALPRAZolam 1 MG TAB PO PRN ×2 (00:13→09:29)
[2016-11-01 04:52] LABS: BICARBONATE 29.5 MEQ/L (21.0-32.0)
[2016-11-01 05:00] VITALS: BP 107/54; PULSE 60; RESP 20; TEMP 98.1; O2SAT 96
[2016-11-01 05:00] LABS: POTASSIUM 4.3 MEQ/L (3.5-5.1)
[2016-11-01] MEDS: MIDODRINE 5 MG TAB PO SCH ×2 (05:57→11:05)
[2016-11-01 08:00] VITALS: BP 109/45; PULSE 62; RESP 18; TEMP 98.4; O2SAT 97
[2016-11-01] MEDS: BUDESONIDE-FORMOTEROL 160/4.5 MCG INHALER INH SCH (09:00)
[2016-11-01 09:17] VITALS: O2SAT 96
[2016-11-01] MEDS: CALCIUM ACETATE 667 MG CAP PO SCH ×2 (09:28→13:30)
[2016-11-01] MEDS: CHOLECALCIFEROL (VIT D3) 1000 UNIT TAB PO SCH (09:28)
[2016-11-01] MEDS: FAMOTIDINE 20 MG TAB PO SCH (09:28)
[2016-11-01] MEDS: DOCUSATE SODIUM 100 MG CAP PO SCH (09:29)
[2016-11-01] MEDS: NICOTINE 21 MG/24 HR PATCH T-DERMAL SCH (09:29)
[2016-11-01] MEDS: CYPROHEPTADINE HCL 4 MG TAB PO SCH (09:29)
[2016-11-01] MEDS: GABAPENTIN 100 MG CAP PO SCH ×2 (09:29→13:00)
--- NOTE | 2016-11-01 11:54 | HHI.FF ---
Face to Face Verification Diagnosis: (1) ESRD (end stage renal disease) (2) Open wound of left upper arm Home Health Nursing Order: Wound care and dressing changes I have seen patient Allie Hylton on 11/01/16. My clinical findings support the need for the requested home health care services because: She will be d/c with a wound vac to LUE and will need assistance in wound care therapy for optimal healing Infection w/ risk of complications I certify that my clinical findings support that this patient is homebound because: Pt is stable and cleared for D/C and will need to continue wound care management with Home health services to aid in optimal healing of LUE. Post-op weakness Continue wound vac management Setting 125 mmHg/Cont Change wound vac dressing to LUE 2 times a week on Sat and Keyla Fierro November 01, 2016 11:54
[2016-11-01 12:00] VITALS: BP 88/41; PULSE 76; RESP 19; TEMP 97.8; O2SAT 93
--- NOTE | 2016-11-01 12:08 | PD.VS.PN ---
Subjective Subjective/Hospital Course Pt in bed alert and in nad Reported she is getting use to HD Wound vac in place to LUE Objective Vitals/I&O Date Time Temp Pulse Resp B/P Pulse Ox O2 Delivery O2 Flow Rate FiO2 11/01/16 09:17 96 21 11/01/16 08:00 98.4 62 18 109/45 97 11/01/16 05:00 98.1 60 20 107/54 96 11/01/16 00:00 97.6 61 18 114/56 95 10/31/16 20:00 97.8 56 20 122/57 95 10/31/16 17:17 18 10/31/16 17:02 95 10/31/16 16:00 97.1 67 19 109/56 96 10/31/16 13:23 97.2 79 16 113/53 95 11/01/16 11/01/16 11/01/16 07:00 15:00 23:00 Intake Total 320 ml Output Total 800 ml Balance -480 ml Physical Exam GENERAL: A&OX3, NAD SKIN: Warm and dry. Wound vac in place LUE NECK: Supple,No JVD CARDIOVASCULAR: RRR, +S1,S2 RESPIRATORY: BS CTA + Thrill to LUE near AVF Pt denies hand pain Pt w/ equal cardiovascular disease specialist strength Laboratory Laboratory Tests Test 11/01/16 03:39 Sodium Level 139 Potassium Level 4.3 Chloride Level 101 Carbon Dioxide Level 29.5 Anion Gap 9 Blood Urea Nitrogen 42 Creatinine 3.18 Estimat Glomerular Filtration 15 Rate Random Glucose 100 Calcium Level 8.9 Date/Time Procedure Status Source Growth 10/30/16 12:10 Gram Stain - Final Resulted Bronchial Washings Other 10/30/16 12:10 Bronchial Culture - Preliminary Resulted Gram Negative Shree 10/30/16 12:10 Fungal Smear - Final Resulted Bronchial Washings Other NO FUNGAL ELEMENTS SEEN. 10/30/16 12:10 Fungal Culture Resulted Bronchial Washings Other Pending 10/30/16 12:10 Bronchial Aspirate Culture - Final Complete Bronchial Brushings Left Lower Lobe NO GROWTH IN 48 HOURS. 10/30/16 12:10 Acid Fast Stain - Final Resulted Bronchial Washings Other NO ACID FAST BACILLI SEEN 10/30/16 12:10 Mycobacterial Culture Resulted Bronchial Washings Other Pending Assessment and Plan Plan PLAN Pt to continue Wound Vac therapy to Left upper extremity Will see patient in our OPC next week for wound check and follow up Keyla SHIRLEY [facility] [phone] Discharge Planning OK for D/C from a vascular standpoint Will see pt next week in our OPC Keyla Nichols November 01, 2016 12:08
--- NOTE | 2016-11-01 12:50 | HHI.PR ---
Subjective Remarks Feels better today. Off o2 sat 94. Was dialyzed. Has no fever . Wants to go home Objective Vital Signs Date Time Temp Pulse Resp B/P Pulse Ox O2 Delivery O2 Flow Rate FiO2 11/01/16 12:00 97.8 76 19 88/41 93 11/01/16 09:17 96 21 11/01/16 08:00 98.4 62 18 109/45 97 11/01/16 05:00 98.1 60 20 107/54 96 11/01/16 00:00 97.6 61 18 114/56 95 10/31/16 20:00 97.8 56 20 122/57 95 10/31/16 17:17 18 10/31/16 17:02 95 10/31/16 16:00 97.1 67 19 109/56 96 10/31/16 13:23 97.2 79 16 113/53 95 I/O 10/31/16 10/31/16 10/31/16 11/01/16 11/01/16 11/01/16 07:00 15:00 23:00 07:00 15:00 23:00 Intake Total 480 ml 240 ml 580 ml 320 ml Output Total 650 ml 2000 ml 600 ml 800 ml Balance -170 ml -1760 ml -20 ml -480 ml Intake Oral 480 ml 240 ml 480 ml 320 ml IV Total 100 ml 0 ml Output Urine Total 650 ml 1000 ml 600 ml 800 ml Drainage Total 0 ml 0 ml Hemodialysis 1000 ml # Bowel Movements 0 0 0 0 Result Diagram: 10/30/16 0513 11/01/16 0339 Objective Remarks GENERAL: This thinly built, elderly white female in no distress HEENT: Head normocephalic. Pupils reactive and equal. Tongue is dry. Throat is dry. Nasal mucosa is clear NECK: Supple. No bruits. There is no venous distension . Trachea midline. No thyroid enlargement. CHEST: Equal movements. There is a Perma-Cath in the right upper chest. Breath sounds diminished at the periphery.Occ Crackles left base. HEART: The heart sounds are irregular S1-S2. No murmur. No S3. ABDOMEN: Soft. Nontender. No organomegaly. Bowel sounds are active. EXTREMITIES: Lower extremities, no edema. Peripheral pulses diminished. NEUROLOGIC: She is moving all extremities. 1+ reflexes with no gross motor deficits. Cranial nerves grossly intact. RECTAL: Exam is deferred. Assessment and Plan Assessment and Plan IMPRESSION 1. COPD with chronic bronchitis and emphysema. 2. End-stage renal disease on dialysis. 3. 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 4. Peripheral neuropathy. 5. Nicotine dependency. 6. Anxiety and depression. 7. Left Base Pneumonia. Plan : 1. Continue Po antibioitcs for 2 days 2. OK to go home 3. D/C Nebs and switch to Symbicort and Spiriva. 4. prednisone 10 mg daily and taper 5. F/U Chest X ray in 2 weeks 6. Will see as OP in 2 weeks Nadira Ulloa MD November 01, 2016 12:50
--- NOTE | 2016-11-01 14:35 | HHI.DS ---
Discharge Summary Admission Date October 24, 2016 at 10:19 Admitting Diagnosis End-stage renal disease new onset (1) ESRD (end stage renal disease) Diagnosis: Principal Plan: Patient has developed end-stage renal disease and needs hemodialysis, her fistula is not ready and I had talked to her to get a permcath, she will be going this afternoon. Continue to monitor her situation and dialysis will be initiated (2) Open wound of left upper arm Diagnosis: Secondary Plan: She is on clindamycin and will resume that and asked Dr. Villar input (3) COPD (chronic obstructive pulmonary disease) Diagnosis: Secondary Plan: Counseled her against smoking she has a history of lung cancer and this was strongly emphasized (4) Normocytic anemia Diagnosis: Secondary Plan: Likely due to chronic kidney disease Consultants Dr. Rodriguez, Dr. Villar Procedures Hemodialysis and bronchoscopy Brief History Patient is a 65-year-old white female with history of COPD, lung cancer status post left which resection of the tumor, chronic smoker, chronic kidney disease who has developed uremic symptoms, she did have an AV fistula procedure done a few weeks ago and her left arm wound is now open, she sees Dr. Villar, according to her daughter she was wearing long sleeves and the then scab was picked on by her and it led to wound dehiscence, she is being followed by vascular surgery. Patient then developed some nausea committed with some vomiting and lack of appetite for the last week the creatinine is trending upwards. She has been admitted to to have Permcath placed and initiate hemodialysis. CBC/BMP: 10/30/16 0513 11/01/16 0339 Significant Findings Laboratory Tests Test 10/30/16 11/01/16 05:13 03:39 Red Blood Count 3.18 MIL/MM3 (4.00-5.30) Hemoglobin 9.0 GM/DL (11.6-15.3) Hematocrit 27.9 % (35.0-46.0) Monocytes (%) (Auto) 25.6 % (0.0-8.0) Eosinophils (%) (Auto) 6.5 % (0.0-4.0) Lymphocytes # (Auto) 0.5 TH/MM3 (1.0-4.8) Monocytes # (Auto) 1.3 TH/MM3 (0-0.9) Blood Urea Nitrogen 63 MG/DL (7-18) 42 MG/DL (7-18) Creatinine 4.91 MG/DL 3.18 MG/DL (0.50-1.00) (0.50-1.00) Estimat Glomerular Filtration 9 ML/MIN (>89) 15 ML/MIN (>89) Rate Albumin 3.3 GM/DL (3.4-5.0) PE at Discharge GENERAL: Well-nourished, well-developed patient. SKIN: Warm and dry. HEAD: Normocephalic. EYES: No scleral icterus. No injection or drainage. NECK: Supple, trachea midline. No JVD or lymphadenopathy. CARDIOVASCULAR: Regular rate and rhythm without murmurs, gallops, or rubs. RESPIRATORY: Breath sounds equal bilaterally. No accessory muscle use. GASTROINTESTINAL: Abdomen soft, non-tender, nondistended. EXTREMITIES: No cyanosis, or edema. Left arm with dressing NEUROLOGICAL: Awake, alert, and oriented x 3. Non-focal. Hospital Course Patient has uremic symptoms and she was a admitted to start hemodialysis a permacath was placed she has respiratory failure symptoms and pulmonary consult was obtained the, she was started on antibiotics of her pneumonia she felt better her arm has a left the incisional wound for which a vascular surgery was consulted and their recommendation was dressing changes and then vacuum dressing was applied. The patient felt better with the hemodialysis her blood pressure at times was low she was started on midodrine, Dr. Rodriguez did wrong" he is well and results were pending patient is instructed to follow-up as an outpatient. Outpatient dialysis was also set up and she is on a Saturday, Saturday and Saturday shift. Pt Condition on Discharge: Good Discharge Disposition: Discharge Home Discharge Instructions DIET: Follow Instructions for: Renal Failure Diet Additional Diet Instructions: Stop smoking Activities you can perform: Weight Bearing as Wanda Activities to Avoid: Strenuous Activity New Medications: Calcium Acetate (Phosphate Bin (Calcium Acetate) 667 Mg Cap 667 MG PO TIDPC dialysis #180 Ref 3 CAP Fluoxetine (Fluoxetine) 20 Mg Cap 20 MG PO DAILY@1600 depression #30 Ref 5 CAP Midodrine (Midodrine) 5 Mg Tab 10 MG PO TID@07,12,17 low BP #90 Ref 5 TAB Continued Medications: Alprazolam (Alprazolam) 0.5 Mg Tab 1 MG PO BID ANXIETY Ref [address] (Aspirin 81) 81 Mg Tabdr 81 MG PO DAILY Ref 0 TAB Budesonide-Formoterol Inh (Symbicort Inh) 160-4.5 Mcg/Act Aero 2 PUFF INH Q12HR #1 Ref 0 INHALER Calcium Carbonate (Antacid) (Tums) 500 Mg Chew 500 MG CHEW DAILY PRN HEARTBURN Ref 0 TAB Cholecalciferol (Vitamin D3) 2,000 Unit Tab 2000 UNITS PO DAILY Nutritional Supplement #1 Ref 0 BOTTLE Docusate Sodium (Docusate Sodium) 100 Mg Cap 100 MG PO BID Prevent Constipation #60 Ref 0 CAP Famotidine (Famotidine) 20 Mg Tab 20 MG PO DAILY #60 Ref 0 TAB Gabapentin (Gabapentin) 100 Mg Cap 100 MG PO TID #90 Ref 0 CAP Guaifenesin ER 12 HR (Mucinex ER 12 HR) 600 Mg Melania 600 MG PO BID Chest Congestion/Cough Ref 0 TAB Ipratropium-Albuterol Neb (Duoneb) 0.5-2.5 Mg/3 Ml Neb 1 NEBULE INH Q6HR NEB Breathing Treatment #120 Ref 0 NEBULE Oxycodone HCl (Oxycodone Hydrochloride) 5 Mg Cap 10 MG PO Q6HR PRN PAIN 1 TO 10 AND/OR AGITATION Tiotropium Inh (Spiriva Handihaler) 18 Mcg Cap 18 MCG INH DAILY 1 capsule = 18 mcg COPD #30 Ref 0 CAP Tolterodine (Tolterodine) 1 Mg Tab 1 MG PO DAILY Urinary Symptom Managemen #60 Ref 0 TAB Discontinued Medications: Clindamycin (Clindamycin) 300 Mg Cap 600 MG PO BID Infection Ref 0 CAP Oscar Jurado MD November 01, 2016 14:35
[2016-11-01 16:00] VITALS: BP 93/44; PULSE 62; RESP 18; TEMP 97.2; O2SAT 98
[2016-11-01] MEDS ORDERED: CEFUROXIME AXETIL 250 MG TAB PO SCH (21:00)
--- NOTE | 2016-11-13 09:03 | RSPPFT ---
DATE OF PROCEDURE: 10/25/16 COMMENTS: Spirometry demonstrates an FEV1 of 0.8 at 35% of predicted, FVC of 1.1 at 36%, FEF 25-75 is 29% of predicted. Post-bronchodilator study demonstrated mild improvements in the FVC. Lung volumes were not completed. Flow volume loops suggest a restrictive pattern. IMPRESSION: 1. Moderately severe restrictive disease. 2. Additional moderate obstructive disease. 3. Minimal response to use of bronchodilator.
== END 2016-11-01 16:30 | disposition home or self-care (01) | DRG 987 ==
LOC: N07A 10:19
PROVIDERS: ADMIT Internal Medicine Nephrology; ATTEND Internal Medicine Nephrology
PROC: 5A1D60Z (ICD-10-PCS; 2016-10-24)
PROC: 05HM33Z Insertion of Infusion Device into Right Internal Jugular Vein, Percutaneous Approach (ICD-10-PCS; 2016-10-24)
PROC: 0BBG8ZX Excision of Left Upper Lung Lobe, Via Natural or Artificial Opening Endoscopic, Diagnostic (ICD-10-PCS; 2016-10-30)
PROC: 0BBJ8ZX Excision of Left Lower Lung Lobe, Via Natural or Artificial Opening Endoscopic, Diagnostic (ICD-10-PCS; principal; 2016-10-30 11:45)
DX: N18.6 End stage renal disease (principal); J18.9 Pneumonia, unspecified organism; J44.9 Chronic obstructive pulmonary disease, unspecified; N25.81 Secondary hyperparathyroidism of renal origin; R63.0 Anorexia; G62.9 Polyneuropathy, unspecified; T81.30XD Disruption of wound, unspecified, subsequent encounter; T82.7XXD Infection and inflammatory reaction due to other cardiac and vascular devices, implants and grafts, subsequent encounter; Y84.8 Other medical procedures as the cause of abnormal reaction of the patient, or of later complication, without mention of misadventure at the time of the procedure; R11.2 Nausea with vomiting, unspecified; B19.20 Unspecified viral hepatitis C without hepatic coma; Z92.3 Personal history of irradiation; D64.9 Anemia, unspecified; Y71.8 Miscellaneous cardiovascular devices associated with adverse incidents, not elsewhere classified; Y92.9 Unspecified place or not applicable; M19.90 Unspecified osteoarthritis, unspecified site; F32.9 Major depressive disorder, single episode, unspecified; F41.9 Anxiety disorder, unspecified; I25.10 Atherosclerotic heart disease of native coronary artery without angina pectoris; F17.210 Nicotine dependence, cigarettes, uncomplicated; Z85.118 Personal history of other malignant neoplasm of bronchus and lung; Z99.2 Dependence on renal dialysis; F10.21 Alcohol dependence, in remission; Z80.1 Family history of malignant neoplasm of trachea, bronchus and lung; Z80.3 Family history of malignant neoplasm of breast; Z80.6 Family history of leukemia; Z84.89 Family history of other specified conditions; R09.82 Postnasal drip
CPT/HCPCS: 36558; 36600; 71010; 71250; 76937; 77001; 80048; 80053; 80069; 80074; 80202; 80299; 82728; 82805; 83540; 83550; 84100; 85025; 85610; 87015; 87070; 87071; 87077; 87102; 87116; 87186; 87205; 87206; 87449; 88112; 88305; 90935; 94060; 94620; 94640; 94664; 96365; 96374; 96375; 99152; 99153; C1750; C1769; J0171; J0690; J0696; J1580; J1644; J2060; J2250; J2405; J2920; J3010; J3370; J7030; J7050; J7613; P9047; Q4081

== ENCOUNTER 2016-11-03 00:10 | Emergency (ER) | payer MEDICARE ==
[~2016-11-03] VITALS: Ht 165.1 cm; Wt 59.7 kg
[2016-11-03] VITALS (9 sets, daily range): BP systolic 87–105; BP diastolic 35–67; PULSE 51–62; RESP 12–16; TEMP 97.9; O2SAT 97–100
[~2016-11-03 00:10] MED LIST changes: +CALC667C PO; +CLIN1CAP6 PO; +FLUO20CA4 PO; +MIDO5TAB PO; +TUMS500C CHEW
[2016-11-03] MEDS ORDERED: MIDO10TA PO (00:53)
[2016-11-03] MEDS ORDERED: SODIUM CHLORID 0.9% 500 ML INJ 500 ML IV ONE (02:30)
[2016-11-03 02:47] LABS: HEMATOCRIT 27.5 % (35.0-46.0); MEAN CELL VOLUME 86.1 FL (80.0-100.0); MEAN CORPUSCULAR HEMOGLOBIN 27.8 PG (27.0-34.0); MEAN CORPUSCULAR HGB CONC 32.3 % (32.0-36.0); PLATELET COUNT 213 TH/MM3 (150-450); RED BLOOD COUNT 3.19 MIL/MM3 (4.00-5.30); RED CELL DISTRIBUTION WIDTH 13.1 % (11.6-17.2); WHITE BLOOD COUNT 2.3 TH/MM3 (4.0-11.0)
[2016-11-03 02:51] LABS: HEMO FLAGS AUTO DIFF
--- NOTE | 2016-11-03 02:55 | RADHPO ---
EXAM DATE/TIME: 11/03/2016 02:40 [facility] COMPARISON: CHEST SINGLE AP, October 30, 2016, 12:43. INDICATIONS : Chest pain. MEDICAL HISTORY : Myocardial infarction. Osteoarthritis. Carcinoma, lung. Brain aneurysm. Chest pain. COPD. HTN. Di abetes. Hep C. Pneumonia, Hernia, hiatal, GERD. ESRD. Anticoagulant therapy, Aspirin. Depression. Anx iety SURGICAL HISTORY : Tubal ligation. Cholecystectomy. Coronary artery stent. Brain aneurysm with stent, Achilles tendon garcia rgery. Radiation therapy ENCOUNTER: Initial ACUITY: 1 day PAIN SCORE: 6/10 LOCATION: Bilateral chest FINDINGS: The right lung remains clear and well-aerated. There continues to be a patchy infiltrate in the left mid to lower lung. This is stable compared to the prior study. No new infiltrates are seen. Heart siz e is stable. Right-sided central line in place. No pneumothorax. There are no pleural effusions. CONCLUSION: Stable patchy infiltrate left mid to left lower lung. No new or significant changes. Esdras Arellano MD on November 03, 2016 at 2:53 Board Certified Radiologist. This report was verified electronically.
[2016-11-03 02:59] LABS: CHLORIDE 98 MEQ/L (98-107); POTASSIUM 3.6 MEQ/L (3.5-5.1); SODIUM (NA) 136 MEQ/L (136-145)
[2016-11-03 03:02] LABS: ANION GAP 9 MEQ/L (5-15); BICARBONATE 28.9 MEQ/L (21.0-32.0); BLOOD UREA NITROGEN 35 MG/DL (7-18); MAGNESIUM 2.6 MG/DL (1.5-2.5)
[2016-11-03 03:03] LABS: APTT (PATIENT) 29.8 SEC (24.3-30.1); PROTHROMBIN TIME - PATIENT 10.9 SEC (9.8-11.6)
[2016-11-03 03:05] LABS: GLOMERULAR FILTRATION RATE 14 ML/MIN (>89)
[2016-11-03 03:24] LABS: BANDS 2 % (0-6); BASOPHILS 3 % (0-2); EOSINOPHILS 12 % (0-4); NEUTROPHIL # MANUAL DIFF 0.5 TH/MM3 (1.8-7.7); POLYS (SEG NEUTROPHILS) 21 % (16-70); WBC DIFF SAMPLE 100
[2016-11-03 03:25] LABS: PLATELET ESTIMATE SMEAR NORMAL (NORMAL); PLATELET MORPHOLOGY NORMAL (NORMAL); SCAN/DIFF FINAL DIFF MANUAL
[2016-11-03 03:31] LABS: CREATINE KINASE 24 U/L (26-192)
--- NOTE | 2016-11-03 04:58 | PD ---
HPI Chief Complaint: General Weakness Time Seen by Provider: 02:20 Travel History International Travel<30 days: No Contact w/Intl Traveler<30days: No Traveled to known affect area: No History of Present Illness HPI 65-year-old female presents to the emergency department by private transportation the care of her daughter for low blood pressure. Patient was recently discharged from the hospital 11/01/16 after hospitalization 10/24/16 through 11/01/16 for evaluation of end-stage renal disease requiring hemodialysis with a immature fistula that subsequently has had dehiscence. Patient is under the care of Dr. Villar her vascular surgeon for a wound VAC placement. Patient had PermCath placement for hemodialysis during her hospitalization. Patient is also managed for COPD and had bronchoscopy by Dr. Lee her data sciences director. Patient was identified to have a left lower lobe infiltrate and was discharged on clindamycin for complications of the AV fistula graft and left lower lobe infiltrate. Patient was noted during hospitalization to have low blood pressure hypotension with systolic pressure in the 90s and was started on noted during her hospitalization and started on midodrine 10 mg 3 times daily. The daughter states she's been giving the medication as prescribed but has noted that the patient has become more sensitive to her daily oxycodone as well as her Xanax and has not been giving her her Xanax due to her drowsiness. Patient has had no fever. Patient completed last dialysis 54Saturday evening. Patient is also followed by hematology for autoimmune neutropenia and receives Neupogen injections for neutrophil count less than 500. Past medical history is also significant for lung cancer status post resection of tumor of left lung chronic smoker with ongoing tobacco use anxiety depression chronic pain syndrome SC diabetes and cerebral aneurysm with stent. FOR[facility]LY [facility] Past Medical History Narrative Medical Anxiety depression, arthritis, squamous cell carcinoma with along with tumor excision CAD SC hypertension dyslipidemia diet-controlled diabetes renal failure with PermCath and recent AV fistula with dehiscence and wound VAC COPD chronic pain syndrome autoimmune neutropenia hepatitis C; ongoing tobacco use; nursing notes reviewed Hx Anticoagulant Therapy: Yes (asa 81) Anxiety: Yes Depression: Yes Cancer: Yes (Lung, 2013, remission for years september 22) Cardiovascular Problems: Yes (htn, mi) Chemotherapy: No Chest Pain: Yes COPD: Yes Diabetes: Yes (DIET CONTROLLED) Patient Takes Glucophage: No Diminished Hearing: No Endocrine: Yes Gastrointestinal Disorders: Yes (CONSTIPATION) GERD: Yes Genitourinary: Yes (RETENTION, BURNING) Hepatitis: Yes (HEP C) Hiatal Hernia: Yes Immune Disorder: No Implanted Vascular Access Dvce: Yes Musculoskeletal: Yes (OA) Neurologic: Yes (BRAIN ANEURSYM WITH CAPPED STENT NO MRI) Psychiatric: No Reproductive: No Respiratory: Yes (COPD ON O2 AT HS, PRN DURING DAY) Immunizations Current: Yes Myocardial Infarction: Yes ("minor"@51) Pneumonia: Yes Radiation Therapy: Yes Renal Failure: Yes Thyroid Disease: No ?: Not : 3 Para: 3 Past Surgical History Abdominal Surgery: Yes (cholecystectomy) AICD: No Body Medical Devices: brain stent capped Cardiac Surgery: Yes (cardiac cath) Cholecystectomy: Yes Ear Surgery: No Endocrine Surgery: No Eye Surgery: No Gynecologic Surgery: Yes (tubal ligation) Joint Replacement: No Neurologic Surgery: Yes (brain anuerysm with stent (capped)) Oral Surgery: No Pacemaker: No Thoracic Surgery: Yes (WEDGE RESECTION FOR SQUAMOUS CELL CARCINOMA) Other Surgery: Yes Social History Alcohol Use: No Tobacco Use: Yes Substance Use: No Allergies-Medications (Allergen,Severity, Reaction): Coded Allergies: Morphine (Verified Allergy, Severe, "FOG", 09/24/16) Cipro (Verified Allergy, Unknown, 08/13/16) Codeine (Verified Allergy, Unknown, Vertigo, 09/24/16) Reported Meds & Prescriptions Reported Meds & Active Scripts Active Midodrine 5 Mg Tab 10 Mg PO TID@07,12,17 Fluoxetine (Fluoxetine HCl) 20 Mg Cap 20 Mg PO DAILY@1600 Calcium Acetate (Calcium Acetate (Phosphate Bin) 667 Mg Cap 667 Mg PO TIDPC Reported Midodrine 10 Mg Tab 10 Mg PO TID Clindamycin (Clindamycin HCl) 300 Mg Cap 600 Mg PO BID Tums (Calcium Carbonate (Antacid)) 500 Mg Chew 500 Mg CHEW DAILY PRN Oxygen tank (Oxygen) 1 Ea Tank 2 Liter EDUARDO.CANULA HS Oxygen Concentrator Portable Gaseous 2 L/min via Nasal Cannula Continuous For 99 months Alprazolam 0.5 Mg Tab 1 Mg PO BID Famotidine 20 Mg Tab 20 Mg PO DAILY Docusate Sodium 100 Mg Cap 100 Mg PO BID Vitamin D3 (Cholecalciferol) 2,000 Unit Tab 2,000 Units PO DAILY Spiriva Handihaler (Tiotropium Inh) 18 Mcg Cap 18 Mcg INH DAILY 1 capsule = 18 mcg Symbicort Inh (Budesonide/Formoterol Fumarate) 160-4.5 Mcg/Act Aero 2 Puff INH Q12HR Mucinex ER 12 HR (Guaifenesin) 600 Mg Melania 600 Mg PO BID Oxycodone Hydrochloride (Oxycodone HCl) 5 Mg Cap 10 Mg PO Q6HR PRN Gabapentin 100 Mg Cap 100 Mg PO TID Review of Systems Except as stated in HPI: all other systems reviewed are Neg General / Constitutional: No: Fever, Chills HENT: No: Congestion Respiratory: No: Shortness of Breath Gastrointestinal: No: Nausea, Vomiting, Abdominal Pain Genitourinary: Positive: Decreased Urinary Output, No: Flank Pain Skin: Positive Other (wound VAC at AV graft site), No Rash Neurologic: Positive: Weakness, No: Dizziness, Syncope, Focal Abnormalities, Coordination Problem Psychiatric: No: Anxiety Hematologic/Lymphatic: No: Easy Bruising Physical Exam Narrative GENERAL: Well-developed elderly female in no acute distress no respiratory distress; GCS 15 SKIN: Warm and dry. HEAD: Normocephalic. EYES: No scleral icterus. No injection or drainage. NECK: Supple, trachea midline. No JVD or lymphadenopathy. CARDIOVASCULAR: Regular rate and rhythm without murmurs, gallops, or rubs. RESPIRATORY: Breath sounds equal bilaterally. No accessory muscle use. GASTROINTESTINAL: Abdomen soft, non-tender, nondistended. MUSCULOSKELETAL: No cyanosis, or edema. Wound VAC at left upper arm AV graft mild erythema no increased warmth or induration no tenderness no purulent drainage BACK: Nontender without obvious deformity. No CVA tenderness. Data Data Last Documented VS Vital Signs Date Time Temp Pulse Resp B/P Pulse Ox O2 Delivery O2 Flow Rate FiO2 11/03/16 06:57 56 16 105/61 98 Room Air 11/03/16 00:23 97.9 Orders Electrocardiogram (11/03/16 02:10) Basic Metabolic Panel (Bmp) (11/03/16 02:10) B-Type Natriuretic Peptide (11/03/16 02:10) Ckmb (Isoenzyme) Profile (11/03/16 02:10) Complete Blood Count With Diff (11/03/16 02:10) Magnesium (Mg) (11/03/16 02:10) Prothrombin Time / Inr (Pt) (11/03/16 02:10) Act Partial Throm Time (Ptt) (11/03/16 02:10) Troponin I (11/03/16 02:10) Chest, Single Ap (11/03/16 02:10) Ecg Monitoring (11/03/16 02:10) Bilateral Bp Monitoring (11/03/16 02:10) Iv Access Insert/Monitor (11/03/16 02:10) Oximetry (11/03/16 02:10) Oxygen Administration (11/03/16 02:10) Blood Culture (11/03/16 02:20) Lactic Acid (11/03/16 02:20) Sodium Chlorid 0.9% 500 Ml Inj (Ns 500 M (11/03/16 02:30) Urinalysis - C+S If Indicated (11/03/16 04:27) Sodium Chlor 0.9% 250 Ml Inj (Ns 250 Ml (11/03/16 05:30) Ceftazidime Inj (Fortaz Inj) (11/03/16 06:00) Filgrastim Inj (Neupogen Inj) (11/03/16 07:00) Labs Laboratory Tests Test 11/03/16 11/03/16 02:20 04:45 White Blood Count 2.3 TH/MM3 Red Blood Count 3.19 MIL/MM3 Hemoglobin 8.9 GM/DL Hematocrit 27.5 % Mean Corpuscular Volume 86.1 FL Mean Corpuscular Hemoglobin 27.8 PG Mean Corpuscular Hemoglobin 32.3 % Concent Red Cell Distribution Width 13.1 % Platelet Count 213 TH/MM3 Mean Platelet Volume 7.0 FL Neutrophils (%) (Auto) % Lymphocytes (%) (Auto) % Monocytes (%) (Auto) % Eosinophils (%) (Auto) % Basophils (%) (Auto) % Neutrophils # (Auto) TH/MM3 Lymphocytes # (Auto) TH/MM3 Monocytes # (Auto) TH/MM3 Eosinophils # (Auto) TH/MM3 Basophils # (Auto) TH/MM3 CBC Comment AUTO DIFF Differential Total Cells 100 Counted Neutrophils % (Manual) 21 % Band Neutrophils % 2 % Lymphocytes % 35 % Monocytes % 27 % Eosinophils % 12 % Basophils % 3 % Neutrophils # (Manual) 0.5 TH/MM3 Differential Comment FINAL DIFF MANUAL Platelet Estimate NORMAL Platelet Morphology Comment NORMAL Red Cell Morphology Comment NORMAL Prothrombin Time 10.9 SEC Prothromb Time International 1.0 RATIO Ratio Activated Partial 29.8 SEC Thromboplast Time Sodium Level 136 MEQ/L Potassium Level 3.6 MEQ/L Chloride Level 98 MEQ/L Carbon Dioxide Level 28.9 MEQ/L Anion Gap 9 MEQ/L Blood Urea Nitrogen 35 MG/DL Creatinine 3.30 MG/DL Estimat Glomerular Filtration 14 ML/MIN Rate Random Glucose 89 MG/DL Lactic Acid Level 0.8 mmol/L Calcium Level 9.1 MG/DL Magnesium Level 2.6 MG/DL Total Creatine Kinase 24 U/L Troponin I LESS THAN 0.02 NG/ML B-Type Natriuretic Peptide 254 PG/ML Urine Color BRITTANIE Urine Turbidity SLIGHT Urine pH 6.5 Urine Specific [place] 1.007 Urine Protein 100 mg/dL Urine Glucose (UA) NEG mg/dL Urine Ketones NEG mg/dL Urine Occult Blood LARGE Urine Nitrite NEG Urine Bilirubin NEG Urine Leukocyte Esterase TRACE Urine RBC 100-200 /hpf Urine WBC 3-5 /hpf Urine Squamous Epithelial 0-5 /hpf Cells Urine Bacteria OCC /hpf Microscopic Urinalysis Comment CULT NOT INDICATED MDM Medical Decision Making Medical Screen Exam Complete: Yes Emergency Medical Condition: Yes Medical Record Reviewed: Yes Interpretation(s) EKG sinus bradycardia rate [address] elevation or injury pattern or ectopy noted Urinalysis: Red blood cells occasional bacteria culture not indicated CK: 24, not elevated troponin I less than 0.02, not elevated; BNP 254 mildly elevated Lactic acid: 0.8, not elevated Last Impressions Chest X-Ray 11/03/16 0210 Signed Impressions: Service Date/Time: Thursday, November 03, 2016 02:40 - CONCLUSION: Stable patchy infiltrate left mid to left lower lung. No new or significant changes. Esdras Arellano MD CBC & BMP Diagram 11/03/16 02:20 Vital Signs Date Time Temp Pulse Resp B/P Pulse Ox O2 Delivery O2 Flow Rate FiO2 11/03/16 05:11 54 16 96/54 100 Room Air 11/03/16 04:51 62 16 98/35 99 11/03/16 03:50 52 16 92/47 99 11/03/16 02:30 55 16 103/47 100 11/03/16 01:47 54 16 92/43 100 Room Air 11/03/16 00:46 16 99 Room Air 11/03/16 00:23 97.9 57 12 97/43 100 Differential Diagnosis Generalized weakness, hypertension, postdialysis hypotension secondary to excess fluid removal, sepsis, ACS, SC, anemia, pneumonia, PE, renal failure, electrolyte disturbance, arrhythmia, overmedication Narrative Course Patient placed on traffic monitor specialist found to be in sinus rhythm sinus bradycardia without ectopy hypertensive blood pressure systolic pressure of 92 GCS 15 voicing no concerns or complaints IV access obtained specimens collected and sent for resulting including blood cultures as well as lactic acid patient given fluid bolus of normal saline 500 cc Patient resting comfortably voicing no complaints daughter has arrived and states that she has given patient a medication but has noted since giving her her medications such as oxycodone and alprazolam that she had been giving her prior to her worsening renal function that she seems more sensitive to these medications and more drowsy or week on these medications. Daughter decided not to give alprazolam this evening. However due to low blood pressure after dialysis first time after being discharged from the hospital on became concerned that perhaps she was over dialyzed. Patient contacted the dialysis nurse who told her to come to the hospital because she probably needs IV fluids did not contact her scientific systems analyst. Patient's had no fever no noted chills no chest pain or shortness of breath no abdominal pain takes oxycodone for chronic back pain which is not new. Patient again resting comfortable he waiting for lab results patient identified to have neutropenia with absolute neutrophil count of 500; patient able to produce urine. Patient's case discussed with her scientific systems analyst who recommends patient with ongoing medications and discharged to home as long as blood pressure remains greater than 90 mmHg systolic and administer additional normal saline 250 cc; patient's case also discussed with patient's driller portable for her autoimmune neutropenia discussed with coverage physician who recommends a dose adjustment. Review of medical records identifies bronchoscopy cultures organism stenotrophomonas maltophilia --sensitive to ceftazidime, Bactrim, and Levaquin; patient given first dose of Cefazidime IV in the emergency department. Physician Communication Physician Communication discussed with patient's scientific systems analyst Dr Oscar Jurado --- has low blood pressure and noted this during hospitalization --continue midodrine, continue current meds and keep SBP>90 mmHg; call placed to Dr Angel Jurado patient's driller portable --discussed with Dr Burrell regarding h/o autoimmune neutropenia --with anc 500 -- recommends neupogen 480 mcg sc now and repeat CBC w/ platlets for Saturday at [facility]ki Jurado's clinic on Saturday Diagnosis Primary Impression: Hypotension Qualified Code: I95.3 - Hemodialysis-associated hypotension Referrals: Oscar Jurado MD 2 days RhiannonAngel triplett MD 1 week Saturday for CBC with platlets and visit Patient Instructions: General Instructions Additional Instructions: Follow-up with your scientific systems analyst Dr. Jurado call office on Saturday Follow-up with your driller portable Dr. Jurado have CBC with platelet count specimen collected on Saturday and call office for appointment on Saturday Continue current medications as presently prescribed; only give pain medication oxycodone as prescribed as needed not on a scheduled basis and only give antianxiety alprazolam medication as needed as prescribed not on a scheduled basis Monitor temperature every 4 hours with thermometer administer as needed acetaminophen/Tylenol every 4 hours for fever 100.4F or greater Return to the emergency department for any concerns pain fever weakness or change in condition Continue current antibiotic as presently prescribed Med/Other Pt SpecificInfo: No Change to Meds Disposition: 01 DISCHARGE HOME Condition: Stable Livia Khan MD November 03, 2016 04:58
[2016-11-03 05:00] LABS: BLOOD, URINE LARGE (NEG); GLUCOSE,URINE NEG (NEG); KETONE, URINE NEG (NEG); NITRITE,URINE NEG (NEG); PH, URINE 6.5 (5.0-8.5)
[2016-11-03 05:06] LABS: URINE COLOR AMBER (YELLW/STRAW)
[2016-11-03 05:07] LABS: BACTERIA, URINE OCC /hpf; COMMENT (UR) CULT NOT INDICATED; CULTURE IF INDICATED CULT NOT INDICATED; RBC, URINE 100-200 /hpf (0-3); SQUAMOUS EPITHELIAL CELL URINE 0-5 /hpf (0-5)
[2016-11-03] MEDS ORDERED: SODIUM CHLOR 0.9% 250 ML INJ 250 ML IV ONE (05:30)
[2016-11-03] MEDS ORDERED: cefTAZidime INJ 1,000 MG in SODIUM CHLORIDE 0.9% INJ 100 ML IV ONE (06:00)
[2016-11-03] MEDS ORDERED: FILGRASTIM 480 MCG/1.6 ML VIAL SQ ONE (06:30)
[2016-11-03] MEDS ORDERED: FILGRASTIM 300 MCG/ML VIAL SQ ONE (07:00)
--- NOTE | 2016-11-03 13:41 | EKG ---
Date Performed: 11/03/2016 Time Performed: 02:05:30 PTAGE: 65 years EKG: Sinus bradycardia Since PREVIOUS TRACING , no significant change noted Normal ECG except for rate PREVIOUS TRACIN 07/22/2016 22.04 DOCTOR: Leora Marin Interpretating Date/Time 11/03/2016 13:39:39
== END 2016-11-03 07:20 | disposition home or self-care (01) ==
LOC: PHED 00:10
DX: I95.9 Hypotension, unspecified (principal); N18.6 End stage renal disease; F41.8 Other specified anxiety disorders; J44.9 Chronic obstructive pulmonary disease, unspecified; I25.10 Atherosclerotic heart disease of native coronary artery without angina pectoris; E78.5 Hyperlipidemia, unspecified; E11.9 Type 2 diabetes mellitus without complications; R00.1 Bradycardia, unspecified; Z72.0 Tobacco use; Z99.2 Dependence on renal dialysis
CPT/HCPCS: 71010; 80048; 81001; 82550; 83605; 83735; 83880; 84484; 85007; 85027; 85610; 85730; 87040; 93005; 96361; 96365; 96372; 99285; J0713; J1442; J7040; J7050

== ENCOUNTER 2016-12-21 04:27 | Inpatient (IN) | payer MEDICARE ==
[2016-12-21] VITALS (8 sets, daily range): BP systolic 122–151; BP diastolic 59–76; PULSE 62–95; RESP 17–18; TEMP 96.4–98.2; O2SAT 96–100
[~2016-12-21] VITALS: Ht 157.5 cm; Wt 66.1 kg
[~2016-12-21 04:27] MED LIST changes: -ASPI-110 PO; -IPRASOL INH; +MIDO10TA PO; +RESP: ALBUTEROL 2.5 MG/IPRATROPIUM 0.5 MG NEB (PRN) NEB; -TOLT60TA PO
[2016-12-21] MEDS ORDERED: GUAI10TA PO (04:43)
[2016-12-21] MEDS ORDERED: ASPI81CH CHEW (04:43)
[2016-12-21] MEDS ORDERED: VITA2000 PO (04:43)
[2016-12-21] MEDS ORDERED: FLUO1TAB3 PO (04:43)
[2016-12-21] MEDS ORDERED: SODIUM CHLORIDE 0.9% FLUSH 10 ML FLUSH IVF PRN (05:00)
[2016-12-21 05:21] LABS: HEMATOCRIT 39.7 % (35.0-46.0); MEAN CELL VOLUME 89.3 FL (80.0-100.0); MEAN CORPUSCULAR HEMOGLOBIN 28.9 PG (27.0-34.0); MEAN CORPUSCULAR HGB CONC 32.4 % (32.0-36.0); PLATELET COUNT 175 TH/MM3 (150-450); RED BLOOD COUNT 4.45 MIL/MM3 (4.00-5.30); RED CELL DISTRIBUTION WIDTH 14.7 % (11.6-17.2); WHITE BLOOD COUNT 3.3 TH/MM3 (4.0-11.0)
[2016-12-21 05:25] LABS: HEMO FLAGS AUTO DIFF
[2016-12-21 05:34] LABS: APTT (PATIENT) 27.5 SEC (24.3-30.1); INTERNATIONAL NORMALIZED RATIO 0.9 RATIO; PROTHROMBIN TIME - PATIENT 10.4 SEC (9.8-11.6)
[2016-12-21 05:41] LABS: POTASSIUM 4.8 MEQ/L (3.5-5.1)
[2016-12-21 06:02] LABS: BANDS 11 % (0-6); BASOPHILS 3 % (0-2); EOSINOPHILS 11 % (0-4); METAMYELOCYTES 1 % (0-1); MYELOCYTES 2 % (0-0); NEUTROPHIL # MANUAL DIFF 0.7 TH/MM3 (1.8-7.7); PLATELET ESTIMATE SMEAR NORMAL (NORMAL); PLATELET MORPHOLOGY NORMAL (NORMAL); POLYS (SEG NEUTROPHILS) 8 % (16-70); SCAN/DIFF FINAL DIFF MANUAL; WBC DIFF SAMPLE 100
[2016-12-21 06:06] LABS: OVALOCYTES 1+ (NORMAL)
--- NOTE | 2016-12-21 06:18 | RADRPT ---
EXAM DATE/TIME: 12/21/2016 05:16 [facility] COMPARISON: No previous studies available for comparison. INDICATIONS : Right Hip pain from fall. MEDICAL HISTORY : Osteoarthritis. SURGICAL HISTORY : None. ENCOUNTER: Initial ACUITY: 1 day PAIN SCORE: 10/10 LOCATION: Right posterior Hip FINDINGS: Complete intertrochanteric fracture is seen on the right. CONCLUSION: Intertrochanteric fracture. Ivana Dumont MD on December 21, 2016 at 6:16 Board Certified Radiologist. This report was verified electronically.
[2016-12-21] MEDS ORDERED: NICOTINE 21 MG/24 HR PATCH T-DERMAL ONE (06:30)
[2016-12-21] MEDS ORDERED: HYDROmorphone HCL PF 1 MG/ML VIAL IV PUSH ONE (06:30)
--- NOTE | 2016-12-21 06:49 | PD ---
HPI Chief Complaint: Hip Injury Time Seen by Provider: 05:20 Travel History International Travel<30 days: No Contact w/Intl Traveler<30days: No Traveled to known affect area: No History of Present Illness HPI 65 year old female with history of ESRD on HD, COPD, CAD, RA who presents to ER with c/o of right hip pain. Patient reports that she got up around 3am to eat a snack. Reports that she never ate her snack as she ended up falling onto her right hip. Patient reports severe pain to her right hip. Patient does have hx of ESRD on HD - reports that she is due for her dialysis today. Her cloth colors examiner is Dr. Jurado. Patient denies any trauma to head/neck. Denies cp/ sob. Denies abdominal pain PFSH Past Medical History Hx Anticoagulant Therapy: Yes (asa 81) Anxiety: Yes Depression: Yes Cancer: Yes (Lung, 2012, remission for years september 22) Cardiovascular Problems: Yes (htn, mi) Chemotherapy: No Chest Pain: Yes COPD: Yes Diabetes: Yes (DIET CONTROLLED) Patient Takes Glucophage: No Diminished Hearing: No Endocrine: Yes Gastrointestinal Disorders: Yes (CONSTIPATION) GERD: Yes Genitourinary: Yes (RETENTION, BURNING) Hepatitis: Yes (HEP C) Hiatal Hernia: Yes Immune Disorder: No Implanted Vascular Access Dvce: Yes Musculoskeletal: Yes (OA) Neurologic: Yes (BRAIN ANEURSYM WITH CAPPED STENT NO MRI) Psychiatric: No Reproductive: No Respiratory: Yes (COPD ON O2 AT HS, PRN DURING DAY) Immunizations Current: Yes Myocardial Infarction: Yes ("minor"@51) Pneumonia: Yes Radiation Therapy: Yes Renal Failure: Yes Thyroid Disease: No : 3 Para: 3 Past Surgical History Abdominal Surgery: Yes (cholecystectomy) AICD: No Body Medical Devices: brain stent capped Cardiac Surgery: Yes (cardiac cath) Cholecystectomy: Yes Ear Surgery: No Endocrine Surgery: No Eye Surgery: No Gynecologic Surgery: Yes (tubal ligation) Joint Replacement: No Neurologic Surgery: Yes (brain anuerysm with stent (capped)) Oral Surgery: No Pacemaker: No Thoracic Surgery: Yes (WEDGE RESECTION FOR SQUAMOUS CELL CARCINOMA) Other Surgery: Yes Social History Alcohol Use: No Tobacco Use: Yes (1PPD ) Substance Use: No Allergies-Medications (Allergen,Severity, Reaction): Coded Allergies: Morphine (Verified Allergy, Severe, RASH, 12/21/16) Cipro (Verified Adverse Reaction, Intermediate, NAUSEAS, 12/21/16) Codeine (Verified Adverse Reaction, Intermediate, Vertigo, 12/21/16) Reported Meds & Prescriptions Reported Meds & Active Scripts Active Calcium Acetate (Calcium Acetate (Phosphate Bin) 667 Mg Cap 667 Mg PO TIDPC Reported Guaifenesin ER 12 HR (Guaifenesin) 1,200 Mg Melania 600 Mg PO BID Vitamin D3 (Cholecalciferol) 2,000 Unit Cap 2,000 Units PO DAILY Aspirin 81 Mg Chew 81 Mg CHEW DAILY Fluoxetine (Fluoxetine HCl) 20 Mg Tab 20 Mg PO DAILY Midodrine 10 Mg Tab 10 Mg PO TID Tums (Calcium Carbonate (Antacid)) 500 Mg Chew 500 Mg CHEW DAILY PRN Oxygen tank (Oxygen) 1 Ea Tank 2 Liter [id number] HS Oxygen Concentrator Portable Gaseous 2 L/min via Nasal Cannula Continuous For 99 months Alprazolam 0.5 Mg Tab 1 Mg PO BID Famotidine 20 Mg Tab 20 Mg PO DAILY Docusate Sodium 100 Mg Cap 100 Mg PO BID Spiriva Handihaler (Tiotropium Inh) 18 Mcg Cap 18 Mcg INH DAILY 1 capsule = 18 mcg Symbicort Inh (Budesonide/Formoterol Fumarate) 160-4.5 Mcg/Act Aero 2 Puff INH Q12HR Oxycodone Hydrochloride (Oxycodone HCl) 5 Mg Cap 10 Mg PO Q6HR PRN Gabapentin 100 Mg Cap 100 Mg PO TID Review of Systems General / Constitutional: No: Fever Eyes: No: Visual changes HENT: No: Headaches Cardiovascular: No: Chest Pain or Discomfort Respiratory: No: Shortness of Breath Gastrointestinal: No: Abdominal Pain Genitourinary: No: Dysuria Musculoskeletal: Positive: Limited ROM (right hip pain), Pain (right hip pain) Skin: No Rash Neurologic: No: Weakness Psychiatric: No: Depression Endocrine: No: Polydipsia Hematologic/Lymphatic: No: Easy Bruising Physical Exam Narrative GENERAL: Mild distress SKIN: Focused skin assessment warm/dry. HEAD: Atraumatic. Normocephalic. EYES: Pupils equal and round. No scleral icterus. No injection or drainage. ENT: No nasal bleeding or discharge. Mucous membranes pink and moist. NECK: Trachea midline. No JVD. CARDIOVASCULAR: Regular rate and rhythm. No murmur appreciated. RESPIRATORY: No accessory muscle use. Clear to auscultation. Breath sounds equal bilaterally. GASTROINTESTINAL: Abdomen soft, non-tender, nondistended. Hepatic and splenic margins not palpable. MUSCULOSKELETAL: Patient with obvious deformity to right hip - patient with shortened and rotated right hip. Patient unable to ROM right hip. Pulses intact. LLE: normal exam. No clubbing. No cyanosis. No edema. NEUROLOGICAL: Awake and alert. No obvious cranial nerve deficits. Motor grossly within normal limits. Normal speech. PSYCHIATRIC: Appropriate mood and affect; insight and judgment normal. Data Data Last Documented VS Vital Signs Date Time Temp Pulse Resp B/P Pulse Ox O2 Delivery O2 Flow Rate FiO2 12/21/16 04:33 98.2 62 18 141/63 96 Orders Complete Blood Count With Diff (12/21/16 04:48) Basic Metabolic Panel (Bmp) (12/21/16 04:48) Prothrombin Time / Inr (Pt) (12/21/16 04:48) Act Partial Throm Time (Ptt) (12/21/16 04:48) Iv Access Insert/Monitor (12/21/16 04:48) Sodium Chloride 0.9% Flush (Ns Flush) (12/21/16 05:00) Hip, Uni(Ap&Lat) W Ap Pelvis (12/21/16 ) Hydromorphone Pf Inj (Dilaudid Pf Inj) (12/21/16 06:30) Nicotine 21 Mg Patch.24 Hr (Habitrol 21 (12/21/16 06:30) Consult Orthopedic (12/21/16 ) Consult Nephrology (12/21/16 ) (Hub Use Only)Inp Phy Cons/Ref (12/21/16 ) (Hub Use Only)Inp Phy Cons/Ref (12/21/16 ) NPO (12/21/16 07:10) Admit Order (Ed Use Only) (12/21/16 07:10) Labs Laboratory Tests Test 12/21/16 05:07 White Blood Count 3.3 TH/MM3 Red Blood Count 4.45 MIL/MM3 Hemoglobin 12.9 GM/DL Hematocrit 39.7 % Mean Corpuscular Volume 89.3 FL Mean Corpuscular Hemoglobin 28.9 PG Mean Corpuscular Hemoglobin 32.4 % Concent Red Cell Distribution Width 14.7 % Platelet Count 175 TH/MM3 Mean Platelet Volume 7.6 FL Neutrophils (%) (Auto) % Lymphocytes (%) (Auto) % Monocytes (%) (Auto) % Eosinophils (%) (Auto) % Basophils (%) (Auto) % Neutrophils # (Auto) TH/MM3 Lymphocytes # (Auto) TH/MM3 Monocytes # (Auto) TH/MM3 Eosinophils # (Auto) TH/MM3 Basophils # (Auto) TH/MM3 CBC Comment AUTO DIFF Differential Total Cells 100 Counted Neutrophils % (Manual) 8 % Band Neutrophils % 11 % Lymphocytes % 43 % Monocytes % 21 % Eosinophils % 11 % Basophils % 3 % Neutrophils # (Manual) 0.7 TH/MM3 Metamyelocytes 1 % Myelocytes 2 % Differential Comment FINAL DIFF MANUAL Atypical Lymphocytes % Platelet Estimate NORMAL Platelet Morphology Comment NORMAL Ovalocytes 1+ Prothrombin Time 10.4 SEC Prothromb Time International 0.9 RATIO Ratio Activated Partial 27.5 SEC Thromboplast Time Sodium Level 134 MEQ/L Potassium Level 4.8 MEQ/L Chloride Level 102 MEQ/L Carbon Dioxide Level 24.0 MEQ/L Anion Gap 8 MEQ/L Blood Urea Nitrogen 28 MG/DL Creatinine 4.02 MG/DL Estimat Glomerular Filtration 11 ML/MIN Rate Random Glucose 71 MG/DL Calcium Level 9.7 MG/DL MDM Medical Decision Making Medical Screen Exam Complete: Yes Emergency Medical Condition: Yes Interpretation(s) Vital Signs Date Time Temp Pulse Resp B/P Pulse Ox O2 Delivery O2 Flow Rate FiO2 12/21/16 04:33 98.2 62 18 141/63 96 CBC & BMP Diagram 12/21/16 05:07 Last Impressions Hip and Pelvis X-Ray 12/21/16 0000 Signed Impressions: Service Date/Time: Wednesday, December 21, 2016 05:16 - CONCLUSION: Intertrochanteric fracture. Ivana Dumont MD Differential Diagnosis hip fracture, hip strain Narrative Course 65 year old female who presents to ER with c/o of right hip pain after fall today from standing. xray of right hip shows a right sided intertrochanteric fracture call made to Dr. Schuler - will see patient in consult. request medical clearance prior to surgery, if she can be medically cleared, then OR possibly today consult was placed to Dr. Jurado as she has ESRD on dialysis and requires dialysis today case reviewed with Dr. Mcdaniel who accepts pt to service Physician Communication Physician Communication case reviewed with Fransisco MILAN - will see patient in consult Diagnosis Primary Impression: Intertrochanteric fracture of right hip Admitting Information Admitting Physician Requests: Admit Latoya Nolasco DO Dec 21, 2016 06:49
[2016-12-21] MEDS ORDERED: SODIUM CHLORIDE 0.9% FLUSH 10 ML FLUSH IV FLUSH PRN (07:15)
[2016-12-21] MEDS ORDERED: ONDANSETRON HCL 4 MG/2 ML VIAL IVP PRN (07:15)
[2016-12-21] MEDS ORDERED: NALOXONE HCL 0.4 MG/ML AMP IV PRN (07:15)
[2016-12-21] MEDS ORDERED: HYDROmorphone HCL PF 1 MG/ML VIAL IV PUSH PRN (07:30)
[2016-12-21] MEDS ORDERED: ACETAMINOPHEN 325 MG TAB PO PRN ×3 (08:00→09:30)
[2016-12-21] MEDS ORDERED: GLUCAGON 1 MG/ML VIAL OTHER PRN (08:00)
[2016-12-21] MEDS ORDERED: CALCIUM CARBONATE 500 MG CHEWABLE TAB CHEW PRN (08:00)
[2016-12-21] MEDS ORDERED: oxyCODONE/ACETAMINOPHEN 10 MG/325 MG TAB PO PRN (08:00)
[2016-12-21] MEDS ORDERED: LACTULOSE SYRUP 20 GM/30 ML CUP PO PRN (08:00)
[2016-12-21] MEDS ORDERED: SENNOSIDES 8.6 MG TAB PO PRN (08:00)
[2016-12-21] MEDS ORDERED: oxyCODONE/ACETAMINOPHEN 5 MG/325 MG TAB PO PRN (08:00)
[2016-12-21] MEDS ORDERED: DEXTROSE 50% IN WATER 50 ML VIAL(D50) IV PRN (08:00)
--- NOTE | 2016-12-21 08:07 | PD.ORT.PN ---
Subjective Subjective Remarks Allie is a 65-year-old female. She has a history of renal failure, COPD and heart disease. Last night she got up in the middle of night to get a snack and lost her balance and fell. She was unable to get up and had snapping and pain to her right lower extremity. She is brought to the emergency room and was diagnosed with a right intertrochanteric femur fracture. She is examined in the ER in bed. Objective Vitals Vital Signs Date Time Temp Pulse Resp B/P Pulse Ox O2 Delivery O2 Flow Rate FiO2 12/21/16 07:59 98 Nasal Cannula 2.00 12/21/16 07:16 71 17 123/59 99 Nasal Cannula 2 12/21/16 07:00 76 17 99 Nasal Cannula 12/21/16 07:00 17 12/21/16 04:33 98.2 62 18 141/63 96 Result Diagram: 12/21/16 0507 12/21/16 0507 Other Results Laboratory Tests Test 12/21/16 05:07 Prothrombin Time 10.4 SEC (9.8-11.6) Prothromb Time International 0.9 RATIO Ratio Imaging Last 72 hours Impressions Hip and Pelvis X-Ray 12/21/16 0000 Signed Impressions: Service Date/Time: Wednesday, December 21, 2016 05:16 - CONCLUSION: Intertrochanteric fracture. Ivana Dumont MD Last 24 hours Impressions Hip and Pelvis X-Ray 12/21/16 0000 Signed Impressions: Service Date/Time: Wednesday, December 21, 2016 05:16 - CONCLUSION: Intertrochanteric fracture. Ivana Dumont MD Objective Remarks Bilateral upper extremities: Full range of motion neurovascular intact Left lower extremity: Full range of motion neurovascular intact Right lower extremity: Pain to palpation over hip. She has minimal tenderness to palpation over knee. Distally she has intact sensation with good capillary refills with no pain with ankle range of motion. Assessment & Plan Assessment and Plan Right intertrochanteric femur fracture Nothing by mouth Surgery is necessary and needed for intramedullary patty fixation of a right intertrochanteric femur fracture. Medical consults are in process and if cleared for surgery we will plan for surgery today. If cardiac and nephrology feel that surgery needs to be postponed tomorrow, Dr. Lindsay, who is covering for the orthopedic clinic will proceed with surgery tomorrow. Sign consents Nirva Hanna Jr. Dec 21, 2016 08:07
[2016-12-21] MEDS: BUDESONIDE-FORMOTEROL 160/4.5 MCG INHALER INH SCH ×2 (09:00→20:26)
[2016-12-21] MEDS: MIDODRINE 5 MG TAB PO SCH ×3 (09:00→18:00)
[2016-12-21] MEDS: TIOTROPIUM BROMIDE 18 MCG INH INH SCH (09:00)
[2016-12-21] MEDS ORDERED: SODIUM CHLORIDE 0.9% FLUSH 10 ML FLUSH IV FLUSH SCH (09:00)
[2016-12-21] MEDS: DOCUSATE SODIUM 50 MG/SENNA 8.6 MG TAB PO SCH ×2 (09:00→20:25)
[2016-12-21] MEDS ORDERED: SODIUM CHLOR 0.9% 1000 ML INJ 1,000 ML IV PRN ×3 (09:29)
[2016-12-21] MEDS ORDERED: GELATIN 12 MM/7 MM FOAM TOP PRN (09:30)
[2016-12-21] MEDS ORDERED: HEPARIN SODIUM - IV 10,000 UNITS/10 ML VIAL IVF PRN (09:30)
[2016-12-21] MEDS ORDERED: ALBUMIN HUMAN 25% 25 GM/100 ML BAGP IV PRN (09:30)
[2016-12-21] MEDS ORDERED: MANNITOL 12.5 GM/50 ML VIAL IV PRN (09:30)
[2016-12-21] MEDS ORDERED: NITROGLYCERIN 0.4 MG SL 25 TABS/BTL SL PRN (09:30)
[2016-12-21] MEDS ORDERED: EPOETIN ALFA 10,000 UNITS/ML VIAL IV PRN (09:30)
[2016-12-21] MEDS: CALCIUM ACETATE 667 MG CAP PO SCH ×3 (09:30→20:28)
[2016-12-21] MEDS ORDERED: ONDANSETRON HCL 4 MG/2 ML VIAL IV PRN (09:30)
[2016-12-21] MEDS ORDERED: cloNIDine HCL 0.1 MG TAB PO PRN (09:30)
[2016-12-21] MEDS ORDERED: GENTAMICIN SULFATE (DIALYSIS USE ONLY) 20 MG/2 ML VIAL IV PRN (09:30)
[2016-12-21] MEDS ORDERED: diphenhydrAMINE HCL 25 MG CAP PO PRN (09:30)
[2016-12-21] MEDS ORDERED: HEPARIN SODIUM - IV 10,000 UNITS/10 ML VIAL PRN (09:30)
[2016-12-21] MEDS: GABAPENTIN 100 MG CAP PO SCH ×4 (10:30→20:26)
[2016-12-21] MEDS: ALPRAZolam 1 MG TAB PO SCH ×2 (10:30→20:25)
[2016-12-21] MEDS: CHOLECALCIFEROL (VIT D3) 1000 UNIT TAB PO SCH (10:31)
[2016-12-21] MEDS: FAMOTIDINE 20 MG TAB PO SCH (10:31)
[2016-12-21] MEDS: FLUoxetine HCL 20 MG CAP PO SCH (10:31)
[2016-12-21] MEDS: guaiFENesin E.R. 600 MG TAB PO SCH ×2 (10:31→20:24)
[2016-12-21] MEDS: INSULIN ASPART SUPPLEMENTAL SCALE SQ SCH ×3 (11:00→20:27)
[2016-12-21 11:33] LABS: CREATINE KINASE 67 U/L (26-192)
--- NOTE | 2016-12-21 11:44 | PD.CONS ---
HPI Service Nephrology Consult Requested By Dr. Solano Reason for Consult ESRD management Primary Care Physician Krystal Claudio, DO History of Present Illness Patient is a 65-year-old white female with history of lung cancer, end-stage renal disease, hypotension on midodrine, she got up in the middle of the night to the to get something and lost her balance and had a fall she stood up and felt excruciating pain on the right side of her leg, she was brought to the emergency and had a fracture of the right femur and hip intra trochanteric fracture. Her hemodialysis days are Saturday, Saturday and Saturday. Review of Systems Constitutional: COMPLAINS OF: Fatigue Cardiovascular: COMPLAINS OF: Dyspnea on Exertion Musculoskeletal: COMPLAINS OF: Joint pain, Muscle aches, Stiffness, Back pain Psychiatric: COMPLAINS OF: Anxiety Past Family Social History Allergies: Coded Allergies: Morphine (Verified Allergy, Severe, RASH, 12/21/16) Cipro (Verified Adverse Reaction, Intermediate, NAUSEAS, 12/21/16) Codeine (Verified Adverse Reaction, Intermediate, Vertigo, 12/21/16) Past Medical History History of lung cancer End-stage renal disease Low blood pressure Anemia History of coronary artery disease Osteoarthritis COPD Past Surgical History Cholecystectomy Lung biopsy History of lung surgery with wedge resection AV fistula placement left arm Achilles tendon repair Tubal ligation Reported Medications Reported Meds & Active Scripts Active Calcium Acetate (Calcium Acetate (Phosphate Bin) 667 Mg Cap 667 Mg PO TIDPC Reported Guaifenesin ER 12 HR (Guaifenesin) 1,200 Mg Melania 600 Mg PO BID Vitamin D3 (Cholecalciferol) 2,000 Unit Cap 2,000 Units PO DAILY Aspirin 81 Mg Chew 81 Mg CHEW DAILY Fluoxetine (Fluoxetine HCl) 20 Mg Tab 20 Mg PO DAILY Midodrine 10 Mg Tab 10 Mg PO TID Tums (Calcium Carbonate (Antacid)) 500 Mg Chew 500 Mg CHEW DAILY PRN Oxygen tank (Oxygen) 1 Ea Tank 2 Liter [employer] HS Oxygen Concentrator Portable Gaseous 2 L/min via Nasal Cannula Continuous For 99 months Alprazolam 0.5 Mg Tab 1 Mg PO BID Famotidine 20 Mg Tab 20 Mg PO DAILY Docusate Sodium 100 Mg Cap 100 Mg PO BID Spiriva Handihaler (Tiotropium Inh) 18 Mcg Cap 18 Mcg INH DAILY 1 capsule = 18 mcg Symbicort Inh (Budesonide/Formoterol Fumarate) 160-4.5 Mcg/Act Aero 2 Puff INH Q12HR Oxycodone Hydrochloride (Oxycodone HCl) 5 Mg Cap 10 Mg PO Q6HR PRN Gabapentin 100 Mg Cap 100 Mg PO TID Active Ordered Medications Current Medications Medications (Trade) Dose Ordered Sig/Carlos Route Start Time Stop Time Status Last Admin (NS Flush) 2 ml UNSCH PRN IV FLUSH 12/21/16 07:15 (NS Flush) 2 ml BID IV FLUSH 12/21/16 09:00 (Zofran Inj) 4 mg Q6H PRN IVP 12/21/16 07:15 (Narcan Inj) 0.4 mg UNSCH PRN IV 12/21/16 07:15 (Dilaudid Pf Inj) 0.2 mg Q4H PRN IV PUSH 12/21/16 07:30 12/21/16 10:31 (D50w (Vial) Inj) 50 ml UNSCH PRN IV 12/21/16 08:00 (Glucagon Inj) 1 mg UNSCH PRN OTHER 12/21/16 08:00 (Tylenol) 650 mg Q4H PRN PO 12/21/16 08:00 (Tylenol) 650 mg Q6H PRN PO 12/21/16 08:00 (Percocet 5-325 Mg) 1 tab Q6H PRN PO 12/21/16 08:00 (Percocet 10-325 Mg) 1 tab Q6H PRN PO 12/21/16 08:00 (Marixa-Colace) 1 tab BID PO 12/21/16 09:00 (Senokot) 17.2 mg Q12H PRN PO 12/21/16 08:00 (Lactulose Liq) 30 ml DAILY PRN PO 12/21/16 08:00 (Xanax) 1 mg BID PO 12/21/16 09:00 12/21/16 10:30 (Symbicort 160-4.5 Inh) 2 puff Q12HR INH 12/21/16 09:00 (Phoslo) 667 mg TIDPC PO 12/21/16 09:30 (Tums Chew) 500 mg DAILY PRN CHEW 12/21/16 08:00 (Vitamin D3) 2,000 units DAILY PO 12/21/16 09:00 12/21/16 10:31 (Pepcid) 20 mg DAILY PO 12/21/16 09:00 12/21/16 10:31 (PROzac) 20 mg DAILY PO 12/21/16 09:00 12/21/16 10:31 (Neurontin) 100 mg TID PO 12/21/16 09:00 12/21/16 10:30 (Mucinex Er) 600 mg BID PO 12/21/16 09:00 12/21/16 10:31 (Proamatine) 10 mg TID PO 12/21/16 09:00 Tiotropium Moody 18 mcg 18 mcg DAILY INH 12/21/16 09:00 (NS 1000 ml Inj) 1,000 ml @ 0 mls/hr Q0M PRN IV 12/21/16 09:29 Heparin Sodium (Porcine) 8000 units 8,000 units UNSCH PRN IVF 12/21/16 09:30 Sodium Chloride 1,000 ml @ 200 mls/hr Q5H PRN IV 12/21/16 09:29 (NS 1000 ml Inj) 1,000 ml @ 0 mls/hr Q0M PRN IV 12/21/16 09:29 (Mannitol Inj) 12.5 gm UNSCH PRN IV 12/21/16 09:30 (Albumin 25% Inj) 25 gm UNSCH PRN IV 12/21/16 09:30 (NS Flush) 5 ml UNSCH PRN IV FLUSH 12/21/16 09:30 (Heparin Inj) UNSCH PRN .XX 12/21/16 09:30 (Gentamicin (Dialysis) Inj) 20 mg UNSCH PRN IV 12/21/16 09:30 (Zofran Inj) 4 mg UNSCH PRN IV 12/21/16 09:30 (Tylenol) 650 mg UNSCH PRN PO 12/21/16 09:30 (Benadryl) 25 mg UNSCH PRN PO 12/21/16 09:30 (Nitrostat Sl) 0.4 mg UNSCH PRN SL 12/21/16 09:30 (Catapres) 0.1 mg UNSCH PRN PO 12/21/16 09:30 (Epogen Inj) 4,000 units UNSCH PRN IV 12/21/16 09:30 (Gelfoam 12 Mm/7 Mm Top) 1 foam UNSCH PRN TOP 12/21/16 09:30 Family History Noncontributory Social History Smoking one pack per day denies alcohol use Physical Exam Vital Signs Vital Signs Date Time Temp Pulse Resp B/P Pulse Ox O2 Delivery O2 Flow Rate FiO2 12/21/16 07:59 98 Nasal Cannula 2.00 12/21/16 07:16 71 17 123/59 99 Nasal Cannula 2 12/21/16 07:00 76 17 99 Nasal Cannula 12/21/16 07:00 17 12/21/16 04:33 98.2 62 18 141/63 96 Physical Exam GENERAL: Well-nourished, well-developed patient. SKIN: Warm and dry. HEAD: Normocephalic. EYES: No scleral icterus. No injection or drainage. NECK: Supple, trachea midline. No JVD or lymphadenopathy. CARDIOVASCULAR: Regular rate and rhythm without murmurs, gallops, or rubs. PermCath RESPIRATORY: Breath sounds diminished at bases GASTROINTESTINAL: Abdomen soft, non-tender, nondistended. EXTREMITIES: No cyanosis, 1+ edema. Right hip tenderness, AV fistula on the left arm NEUROLOGICAL: Awake, alert, and oriented x 3. Non-focal. Laboratory Laboratory Tests Test 12/21/16 05:07 White Blood Count 3.3 Red Blood Count 4.45 Hemoglobin 12.9 Hematocrit 39.7 Mean Corpuscular Volume 89.3 Mean Corpuscular Hemoglobin 28.9 Mean Corpuscular Hemoglobin 32.4 Concent Red Cell Distribution Width 14.7 Platelet Count 175 Mean Platelet Volume 7.6 Neutrophils (%) (Auto) Lymphocytes (%) (Auto) Monocytes (%) (Auto) Eosinophils (%) (Auto) Basophils (%) (Auto) Neutrophils # (Auto) Lymphocytes # (Auto) Monocytes # (Auto) Eosinophils # (Auto) Basophils # (Auto) CBC Comment AUTO DIFF Differential Total Cells 100 Counted Neutrophils % (Manual) 8 Band Neutrophils % 11 Lymphocytes % 43 Monocytes % 21 Eosinophils % 11 Basophils % 3 Neutrophils # (Manual) 0.7 Metamyelocytes 1 Myelocytes 2 Differential Comment FINAL DIFF MANUAL Atypical Lymphocytes Platelet Estimate NORMAL Platelet Morphology Comment NORMAL Ovalocytes 1+ Prothrombin Time 10.4 Prothromb Time International 0.9 Ratio Activated Partial 27.5 Thromboplast Time Sodium Level 134 Potassium Level 4.8 Chloride Level 102 Carbon Dioxide Level 24.0 Anion Gap 8 Blood Urea Nitrogen 28 Creatinine 4.02 Estimat Glomerular Filtration 11 Rate Random Glucose 71 Calcium Level 9.7 Result Diagram: 12/21/16 0507 12/21/16 0507 Imaging Last Impressions Hip and Pelvis X-Ray 12/21/16 0000 Signed Impressions: Service Date/Time: Wednesday, December 21, 2016 05:16 - CONCLUSION: Intertrochanteric fracture. Ivana Dumont MD Assessment and Plan Problem List: (1) ESRD (end stage renal disease) Plan: Patient is seen during hemodialysis the ultrafiltration set between 2-3 L as tolerated She is going to have surgical repair of the right hip and she is cleared from nephrology point of view (2) Hypotension Plan: Continue with midodrine (3) Intertrochanteric fracture of right hip Plan: Orthopedic following Oscar Jurado MD Dec 21, 2016 11:43
[2016-12-21] MEDS ORDERED: ONDANSETRON HCL 4 MG/2 ML VIAL IV PUSH ONE (12:00)
[2016-12-21] MEDS ORDERED: PHENYLEPH/NS 1000 MCG/10 ML SYR IV ONE (12:00)
[2016-12-21] MEDS ORDERED: PROPOFOL 200 MG/20 ML AMP IV ONE (12:00)
--- NOTE | 2016-12-21 12:30 | HHI.HP ---
[facility] Krystal Claudio DO Admission Diagnosis Right sided intertrochanteric fracture Diagnoses: Chief Complaint: hip pain Travel History International Travel<30 Days: No Contact w/Intl Traveler <30 Da: No Traveled to Known Affected Are: No History of Present Illness This is a 65-year-old female with history of lung cancer in 2013 status post resection and radiotherapy in remission, end-stage renal disease on hemodialysis , hypotension on midodrine, coronary artery disease status post [place] with negative stress test a year ago, COPD, chronic respiratory failure on home oxygen, diabetes mellitus, GERD, hepatitis C, brain aneurysm status post stenting, neutropenia secondary to high circulating ALLEN on Neupogen shots, anxiety and depression. She got up this morning and lost balance and complained of excruciating pain on the right hip unable to bear weight. She was brought to the emergency and found tp have a fracture of the intertrochanteric right femur. Patient denies having chest pain, shortness of breath, palpitations, nausea, diaphoresis and syncope prior to the fall. All other systems reviewed negative. Review of Systems Except as stated in HPI: all other systems reviewed are Neg Past Family Social History Past Medical History As previously mentioned Past Surgical History As previously mentioned, cholecystectomy, cardiac catheterization, tubal ligation Reported Medications Calcium Acetate (Calcium Acetate (Phosphate Bin) 667 Mg Cap 667 Mg PO TIDPC Guaifenesin ER 12 HR (Guaifenesin) 1,200 Mg Melania 600 Mg PO BID Vitamin D3 (Cholecalciferol) 2,000 Unit Cap 2,000 Units PO DAILY Aspirin 81 Mg Chew 81 Mg CHEW DAILY Fluoxetine (Fluoxetine HCl) 20 Mg Tab 20 Mg PO DAILY Midodrine 10 Mg Tab 10 Mg PO TID Tums (Calcium Carbonate (Antacid)) 500 Mg Chew 500 Mg CHEW DAILY PRN Oxygen tank (Oxygen) 1 Ea Tank 2 Liter EDUARDO.CANSincroPool HS Oxygen Concentrator Portable Gaseous 2 L/min via Nasal Cannula Continuous For 99 months Alprazolam 0.5 Mg Tab 1 Mg PO BID Famotidine 20 Mg Tab 20 Mg PO DAILY Docusate Sodium 100 Mg Cap 100 Mg PO BID Spiriva Handihaler (Tiotropium Inh) 18 Mcg Cap 18 Mcg INH DAILY 1 capsule = 18 mcg Symbicort Inh (Budesonide/Formoterol Fumarate) 160-4.5 Mcg/Act Aero 2 Puff INH Q12HR Oxycodone Hydrochloride (Oxycodone HCl) 5 Mg Cap 10 Mg PO Q6HR PRN Gabapentin 100 Mg Cap 100 Mg PO TID Allergies: Coded Allergies: Morphine (Verified Allergy, Severe, RASH, 12/21/16) Cipro (Verified Adverse Reaction, Intermediate, NAUSEAS, 12/21/16) Codeine (Verified Adverse Reaction, Intermediate, Vertigo, 12/21/16) Family History Leukemia, lung and breast cancer Social History Does not drink smokes a pack per day Physical Exam Vital Signs Vital Signs Date Time Temp Pulse Resp B/P Pulse Ox O2 Delivery O2 Flow Rate FiO2 12/21/16 11:34 96.5 78 17 151/76 98 12/21/16 07:59 98 Nasal Cannula 2.00 12/21/16 07:16 71 17 123/59 99 Nasal Cannula 2 12/21/16 07:00 76 17 99 Nasal Cannula 12/21/16 07:00 17 12/21/16 04:33 98.2 62 18 141/63 96 Physical Exam GENERAL: This is a well-nourished, well-developed patient, in no apparent distress. SKIN: No rashes, ecchymoses or lesions. Cool and dry. Permacath right chest HEAD: Atraumatic. Normocephalic. No temporal or scalp tenderness. EYES: Pupils equal round and reactive. Extraocular motions intact. No scleral icterus. No injection or drainage. ENT: Nose without bleeding, purulent drainage or septal hematoma. Throat without erythema, tonsillar hypertrophy or exudate. Uvula midline. Airway patent. NECK: Trachea midline. No JVD or lymphadenopathy. Supple, nontender, no meningeal signs. CARDIOVASCULAR: Regular rate and rhythm without murmurs, gallops, or rubs. RESPIRATORY: Clear to auscultation. Breath sounds equal bilaterally. No wheezes , rales, or rhonchi. GASTROINTESTINAL: Abdomen soft, non-tender, nondistended. No guarding. MUSCULOSKELETAL: Extremities without clubbing, cyanosis but with lower extremity pitting edema. Right hip tender. Right lower extremity shortened and externally rotated NEUROLOGICAL: Awake and alert. Cranial nerves II through XII intact. Motor and sensory grossly within normal limits. Five out of 5 muscle strength in all muscle groups. Normal speech. Laboratory Laboratory Tests Test 12/21/16 12/21/16 05:07 10:26 White Blood Count 3.3 Red Blood Count 4.45 Hemoglobin 12.9 Hematocrit 39.7 Mean Corpuscular Volume 89.3 Mean Corpuscular Hemoglobin 28.9 Mean Corpuscular Hemoglobin 32.4 Concent Red Cell Distribution Width 14.7 Platelet Count 175 Mean Platelet Volume 7.6 Neutrophils (%) (Auto) Lymphocytes (%) (Auto) Monocytes (%) (Auto) Eosinophils (%) (Auto) Basophils (%) (Auto) Neutrophils # (Auto) Lymphocytes # (Auto) Monocytes # (Auto) Eosinophils # (Auto) Basophils # (Auto) CBC Comment AUTO DIFF Differential Total Cells 100 Counted Neutrophils % (Manual) 8 Band Neutrophils % 11 Lymphocytes % 43 Monocytes % 21 Eosinophils % 11 Basophils % 3 Neutrophils # (Manual) 0.7 Metamyelocytes 1 Myelocytes 2 Differential Comment FINAL DIFF MANUAL Atypical Lymphocytes Platelet Estimate NORMAL Platelet Morphology Comment NORMAL Ovalocytes 1+ Prothrombin Time 10.4 Prothromb Time International 0.9 Ratio Activated Partial 27.5 Thromboplast Time Sodium Level 134 Potassium Level 4.8 Chloride Level 102 Carbon Dioxide Level 24.0 Anion Gap 8 Blood Urea Nitrogen 28 Creatinine 4.02 Estimat Glomerular Filtration 11 Rate Random Glucose 71 Calcium Level 9.7 Total Creatine Kinase 67 Troponin I LESS THAN 0.02 Result Diagram: 12/21/16 0507 12/21/16 0507 Imaging EKG sinus rhythm with no acute ST-T changes Last Impressions Hip and Pelvis X-Ray 12/21/16 0000 Signed Impressions: Service Date/Time: Wednesday, December 21, 2016 05:16 - CONCLUSION: Intertrochanteric fracture. Ivana Dumont MD Assessment and Plan Problem List: (1) Intertrochanteric fracture of right hip ICD Code: S72.141A Status: Acute Assessment and Plan This is a 65-year-old female who presented to the emergency department because of right hip pain. She got up this morning and lost balance and complained of excruciating pain on the right hip unable to bear weight. She was brought to the emergency and was found to have a fracture of the intertrochanteric right femur. Right intertrochanteric femur fracture. Nothing by mouth, patient needs definitive repair by orthopedic surgery. Pain management with Percocet and IV Dilaudid. At this time, patient is medically optimized End-stage renal disease on hemodialysis. Currently receiving hemodialysis further management per nephrology Hypotension on midodrine. We will monitor Coronary artery disease status post [place] with negative stress test a year ago. Patient denies chest pain. EKG with sinus rhythm with no acute ST-T changes COPD, chronic respiratory failure on home oxygen. Stable continue oxygen and nebulizations diabetes mellitus. Monitor fingerstick sugars sliding scale coverage History of lung cancer in 2012 status post resection and radiotherapy in remission, GERD, hepatitis C, brain aneurysm status post stenting, neutropenia secondary to high circulating ALLEN on Neupogen shots, anxiety and depression. Continue outpatient medications as appropriate. Tobacco cessation DVT prophylaxis with SCD and early ambulation. Pharmacological prophylaxis per surgery Discussed Condition With Patient, daughter and nursing staff Physician Certification 2 Midnight Certification Type: Admission for Inpatient Services Order for Inpatient Services The services are ordered in accordance with Medicare regulations or non- Medicare payer requirements, as applicable. In the case of services not specified as inpatient-only, they are appropriately provided as inpatient services in accordance with the 2-midnight benchmark. Estimated LOS (days): 2 days is the estimated time the patient will need to remain in the hospital, assuming treatment plan goals are met and no additional complications. Post-Hospital Plan: Ric Cordova MD Dec 21, 2016 12:30
[2016-12-21] MEDS ORDERED: ALPR0.5T3 PO (13:28)
--- NOTE | 2016-12-21 13:29 | HHI.DCPOC ---
Discharge Care Plan Diagnosis: (1) Intertrochanteric fracture of right hip Your Health Problems Are: Difficulty with ADL Exercise Tolerance Goals to Promote Your Health * To prevent worsening of your condition and complications * To maintain your health at the optimal level Directions to Meet Your Goals Take your medications as prescribed Follow your dietary instruction Follow activity as directed Keep your appointments as scheduled Take your immunizations and boosters as scheduled If your symptoms worsen call your PCP, if no PCP go to Urgent Care Center or Emergency Room Smoking is Dangerous to Your Health. Avoid second hand smoke Call the 24-hour hour crisis hotline for domestic abuse at Ric Solano MD Dec 21, 2016 13:29
--- NOTE | 2016-12-21 14:25 | EKG ---
Date Performed: 12/21/2016 Time Performed: 11:26:56 PTAGE: 65 years EKG: Sinus rhythm NORMAL ECG NO SIGNIFICANT CHANGE FROM PRIOR ELECTROCARDIOGRAM. PREVIOUS TRACING : 12/21/2016 07.39 DOCTOR: Stevenson Alfonso Interpretating Date/Time 12/21/2016 14:25:12
--- NOTE | 2016-12-21 14:35 | EKG ---
Date Performed: 12/21/2016 Time Performed: 07:39:17 PTAGE: 65 years EKG: Sinus rhythm NORMAL ECG NO SIGNIFICANT CHANGE FROM PRIOR ELECTROCARDIOGRAM. PREVIOUS TRACING : 11/03/2016 02.05 DOCTOR: Stevenson Alfonso Interpretating Date/Time 12/21/2016 14:33:28
[2016-12-21] MEDS ORDERED: ceFAZolin INJ 1,000 MG VIAL ONE (14:53)
[2016-12-21] MEDS ORDERED: VANCOMYCIN HCL 1000 MG VIAL ONE (14:53)
[2016-12-21] MEDS ORDERED: SODIUM CHLOR 0.9% 250 ML INJ 250 ML ONE (14:54)
[2016-12-21] MEDS ORDERED: GENTAMICIN SULFATE 80 MG/2 ML VIAL ONE ×2 (14:54→15:00)
[2016-12-21] MEDS ORDERED: BUPIVACAINE/EPINEPHRINE 0.5% 50 ML VIAL ONE (15:20)
--- NOTE | 2016-12-21 16:11 | PD.OP ---
cc: Robert Klein MD Operative Report Date of Surgery: Dec 21, 2016 Preoperative Diagnosis: Right hip intertrochanteric fracture Postoperative Diagnosis: Procedure: Reduction and intramedullary nail fixation right hip Anesthesia: Gen. Surgeon: Robert Klein Director Of Science(s): Cuco Hanna PA-C The surgical procedure was assisted by my physician mobile sales assistant. My P.A. presence was necessary throughout this case for the manipulation and positioning of the surgical extremity. My P.A. was assisting me throughout the duration of this procedure. The skill set of a physician mobile sales assistant was medically necessary to complete this procedure. During the surgical case the dye lab technician was working at the back table and the physician mobile sales assistant was directly assisting me. Operation and Findings: Implants used: [10]mm 125 Synthes TFNA short troch nail Plan of activity: Weight-bear as tolerated Patient was seen and evaluated preoperatively. The patient has significant hip pain from intertrochanteric hip fracture. The risk and benefits of surgery were discussed in depth with the patient to include bleeding infection nonunion malunion and need for hip replacement painful hardware as well as medical competitions including but not stroke heart attack and . Informed consent was obtained. Operative site was marked. Patient was brought to the operating room and placed on fracture table. IV sedation was administered by anesthesiologist. Timeout procedure was performed. Hip and leg were prepped with alcohol followed by DuraPrep and draped in the usual sterile fashion. IV antibiotics were given prior to incision. Procedure began with reduction of fracture. Traction was applied. The leg was manipulated to achieve reduction. Excellent reduction was achieved. Fluoroscopy was used to confirm reduction. A three inch incision was made proximal to the trochanter. Subcutaneous tissue was dissected bluntly. Guidepin was placed at the tip of the trochanter and advanced into the femoral canal. Fluoroscopy confirmed appropriate guidepin placement. A opening reamer was placed over the guidepin. The Synthes TFNA nail was attached to the insertion handle. Nail was now placed through the tip of the trochanter into the femoral canal. Fluoroscopy confirmed appropriate nail placement. A second incision was made over the lateral thigh. Cannulas were placed through the insertion handle down to the femur. Guidepin was now placed through the femoral nail into the center of the femoral head. Fluoroscopy confirmed appropriate guidepin placement. Screw length was measured. Cannulated drill was placed over the guidepin. Appropriate length lag screw was now placed. Traction was released and compression was applied. The set screw was now tightened in dynamic mode. Using the insertion handle as a guide a distal interlocking screw was drilled and placed. Final fluoroscopy revealed well aligned fracture with well-placed hardware. Incision was closed with 3-0 Vicryl and ulisses. Sterile dressings were applied. Patient was awakened and transferred to recovery room. Robert Klein MD Dec 21, 2016 16:11
[2016-12-21] MEDS ORDERED: SODIUM CHLORIDE 0.9% FLUSH 5 ML FLUSH IVF PRN (16:15)
[2016-12-21] MEDS ORDERED: MORPHINE SULFATE 4 MG/ML INJ IV PUSH PRN (16:15)
[2016-12-21] MEDS ORDERED: HYDR-3288 PO (16:18)
[2016-12-21] MEDS ORDERED: WALKER/ADULT/FO1 MIS (16:23)
--- NOTE | 2016-12-21 16:29 | RADRPT ---
EXAM DATE/TIME: 12/21/2016 15:59 [facility] COMPARISON: No previous studies available for comparison. INDICATIONS : Right hip fracture troch nail. MEDICAL HISTORY : Myocardial infarction. Osteoarthritis. Carcinoma, lung. Brain aneurysm.Chest pain. COPD. HTN. Diabete s. Hep C. Pneumonia, Hernia, hiatal, GERD.ESRD. Anticoagulant therapy, Aspirin. Depression. Anxiety SURGICAL HISTORY : Tubal ligation. Cholecystectomy. Coronary artery stent. Brain aneurysm with stent, Achilles tendon garcia rgery. Radiation therapy. ENCOUNTER: Initial ACUITY: 1 day PAIN SCORE: Non-responsive. LOCATION: Right hip FINDINGS: Alignment is anatomic following intracranial right hip fracture. CONCLUSION: Anatomic alignment. Blayne Sheets MD FACR on December 21, 2016 at 16:26 Board Certified Radiologist. This report was verified electronically.
[2016-12-21] MEDS ORDERED: *HYDROmorphone PF 1 MG VIAL PERIprocedural Use ONLY ONE (16:33)
--- NOTE | 2016-12-21 16:46 | MB ---
cc: LISA BERNAL DATE OF CONSULTATION: 12/21/2016 REASON FOR CONSULTATION Right hip intertrochanteric fracture. HISTORY OF PRESENT ILLNESS Allie is a 65-year-old female who has multiple medical problems including lung cancer. She also has end-stage renal failure, hypotension, coronary artery disease, COPD, diabetes, reflux, hepatitis C. She got up this morning and fell. She states that she was going to go to the kitchen to get something to eat. She landed on her right side. She had immediate right hip pain. She was unable to stand or ambulate. She presented to the emergency room where x-rays revealed a displaced right hip intertrochanteric fracture. She is currently awake and alert on the orthopedic floor. She is scheduled for hemodialysis today. Pain is worse with movement and is improved with rest. PAST MEDICAL HISTORY ILLNESSES 1. Lung cancer. 2. Endstage renal failure. 3. Hypotension. 4. Coronary artery disease. 5. COPD. 6. Respiratory failure. 7. Diabetes. 8. Hepatitis C. 9. History of brain aneurysm. 10. Neutropenia. 11. Depression. MEDICATIONS Medications include: 1. Calcium. 2. Guaifenesin. 3. Vitamin D. 4. Aspirin. 5. Fluoxetine. 6. Midrodrine. 7. Tums. 8. Alprazolam. 9. Famotidine. 10. Spiriva. 11. Symbicort. 12. Codeine. 13. Gabapentin. ALLERGIES MORPHINE, CIPRO, CODEINE. FAMILY HISTORY Family history is positive for leukemia, lung cancer and breast cancer. PAST SURGICAL HISTORY 1. Cholecystectomy. 2. Cardiac catheterization. 3. Tubal ligation. SOCIAL HISTORY The patient denies alcohol or drug use. She does smoke a pack a day. REVIEW OF SYSTEMS The patient denies headache, visual changes, neck pain, chest pain, abdominal pain, nausea, vomiting or recent weight loss, numbness or tingling of extremities. She has chronic shortness of breath. She complains of right hip pain. Pain is worse with movement. PHYSICAL EXAMINATION GENERAL: The patient is a 65-year-old female who appears older than stated age. She is awake and alert. She is alert and oriented x3. VITAL SIGNS: Temperature 96.5, pulse 78, respirations 17, blood pressure 151/76, O2 sat is 98% on 2 liters nasal cannula. HEAD: The patient is normocephalic. Pupils are equal. NECK: Soft, nontender. Trachea is midline. ABDOMEN: Soft, nontender, nondistended. EXTREMITIES: Examination of bilateral upper extremities reveals no pain with shoulder, elbow or wrist motion. She has intact sensation in all fingers. She has good cap refill in all fingers. Skin is intact. Radial pulses are palpable. Examination of left leg reveals no pain with hip, knee or ankle motion. Skin is intact. Dorsalis pedis pulses palpable. Sensation is intact. Examination of right leg reveals pain with any hip motion. She has no tenderness around her knee, tibia or ankle. Skin is intact. Dorsalis pedis pulses palpable. Sensation is intact. X-RAYS X-ray of the right hip were reviewed. X-rays reveal a mildly displaced right hip intertrochanteric fracture. IMPRESSION 1. Right hip intertrochanteric fracture. 2. Osteoporosis. 3. Renal failure. 4. COPD. 5. Diabetes. 6. Coronary artery disease. PLAN Treatment options were discussed with the patient. At this point I would recommend reduction, intramedullary nail fixation of right femur. The risks of surgery include bleeding, infection, injuries to arteries, nerves and blood vessels, nonunion, malunion, painful hardware as well as medical complications including blood clot, stroke, heart attack and . All questions were answered. I will plan on surgery today. A mid-level provider in my office, nurse practitioner or PA, may see this patient on a follow-up basis and continue to implement the objective of this plan including: Starting or adjusting medications, injections of muscle, tendon, bursa or joints, cast application, orthotic or brace application, physical therapy, further radiographic studies including x-ray, MRI, CT, ultrasounds or bone scan, vascular studies, neurologic studies, or other specialist consultations, and proceeding with surgical management as appropriate. MD LEANN Aponte/LATOSHA /4:18 PM /4:27 PM
--- NOTE | 2016-12-21 17:51 | EKG ---
Date Performed: 12/21/2016 Time Performed: 17:14:56 PTAGE: 65 years EKG: Sinus rhythm WITH SHORT KS INTERVAL BORDERLINE ECG NO SIGNIFICANT CHANGE FROM PRIOR ELECTROCARDIOGRAM. PREVIOUS TRACING : 12/21/2016 11.26 DOCTOR: Stevenson Alfonso Interpretating Date/Time 12/21/2016 17:50:31
[2016-12-21] MEDS ORDERED: DO NOT ADM ANY ANTICOAGULANT DRUGS PRN (18:30)
[2016-12-21] MEDS: ACETAMINOPHEN/HYDROcodone 325 MG/7.5 MG TAB PO PRN (20:25)
[2016-12-21] MEDS: SODIUM CHLORIDE 0.9% FLUSH 10 ML FLUSH IV FLUSH PRN (20:26)
[2016-12-21] MEDS: SODIUM CHLORIDE 0.9% FLUSH 5 ML FLUSH IVF SCH (20:27)
[2016-12-21] MEDS: RESP: ALBUTEROL 2.5 MG/IPRATROPIUM 0.5 MG NEB (SCH) NEB (21:51)
[2016-12-22] VITALS (9 sets, daily range): BP systolic 104–144; BP diastolic 55–73; PULSE 79–90; RESP 14–20; TEMP 96.1–98.3; O2SAT 94–99
[2016-12-22] MEDS: RESP: ALBUTEROL 2.5 MG/IPRATROPIUM 0.5 MG NEB (SCH) NEB ×4 (03:55→20:34)
[2016-12-22] MEDS: INSULIN ASPART SUPPLEMENTAL SCALE SQ SCH ×4 (06:27→20:22)
[2016-12-22 07:31] LABS: ALT (GPT) 19 U/L (10-53); ANION GAP 6 MEQ/L (5-15); AST (GOT) 25 U/L (15-37); BICARBONATE 28.8 MEQ/L (21.0-32.0); BLOOD UREA NITROGEN 29 MG/DL (7-18); CHLORIDE 101 MEQ/L (98-107); GLOMERULAR FILTRATION RATE 13 ML/MIN (>89); POTASSIUM 4.9 MEQ/L (3.5-5.1); SODIUM (NA) 136 MEQ/L (136-145)
[2016-12-22 07:33] LABS: ALKALINE PHOSPHATASE 107 U/L (45-117); CREATINE KINASE 104 U/L (26-192); TOTAL BILIRUBIN ADULT 0.4 MG/DL (0.2-1.0)
[2016-12-22 07:55] LABS: AUTOMATED NEUTROPHIL # 1.1 TH/MM3 (1.8-7.7); BASOPHIL % 1.3 % (0.0-2.0); EOSINOPHIL # 0.2 TH/MM3 (0-0.4); EOSINOPHIL % 5.7 % (0.0-4.0); HEMO FLAGS DIFF FINAL; LYMPH % 14.5 % (9.0-44.0); LYMPHOCYTE # 0.5 TH/MM3 (1.0-4.8); MEAN CELL VOLUME 87.5 FL (80.0-100.0); MEAN CORPUSCULAR HEMOGLOBIN 28.4 PG (27.0-34.0); MEAN CORPUSCULAR HGB CONC 32.5 % (32.0-36.0); NEUT % 32.5 % (16.0-70.0); PLATELET COUNT 161 TH/MM3 (150-450); RED BLOOD COUNT 3.89 MIL/MM3 (4.00-5.30); RED CELL DISTRIBUTION WIDTH 14.2 % (11.6-17.2); WHITE BLOOD COUNT 3.2 TH/MM3 (4.0-11.0)
[2016-12-22] MEDS: CALCIUM ACETATE 667 MG CAP PO SCH ×3 (08:04→16:54)
[2016-12-22] MEDS: ACETAMINOPHEN/HYDROcodone 325 MG/7.5 MG TAB PO PRN ×3 (08:04→23:22)
[2016-12-22] MEDS: CHOLECALCIFEROL (VIT D3) 1000 UNIT TAB PO SCH (08:04)
[2016-12-22] MEDS: ALPRAZolam 1 MG TAB PO SCH ×2 (08:04→20:16)
[2016-12-22] MEDS: DOCUSATE SODIUM 50 MG/SENNA 8.6 MG TAB PO SCH ×2 (08:05→20:16)
[2016-12-22] MEDS: GABAPENTIN 100 MG CAP PO SCH ×2 (08:05→20:16)
[2016-12-22] MEDS: FLUoxetine HCL 20 MG CAP PO SCH (08:05)
[2016-12-22] MEDS: FAMOTIDINE 20 MG TAB PO SCH (08:05)
[2016-12-22] MEDS: MIDODRINE 5 MG TAB PO SCH ×3 (08:05→16:54)
[2016-12-22] MEDS: SODIUM CHLORIDE 0.9% FLUSH 10 ML FLUSH IV FLUSH PRN ×2 (08:05→20:16)
[2016-12-22] MEDS: guaiFENesin E.R. 600 MG TAB PO SCH ×2 (08:05→20:16)
[2016-12-22] MEDS: BUDESONIDE-FORMOTEROL 160/4.5 MCG INHALER INH SCH ×2 (08:06→20:17)
[2016-12-22] MEDS: TIOTROPIUM BROMIDE 18 MCG INH INH SCH (08:06)
[2016-12-22] MEDS: SODIUM CHLORIDE 0.9% FLUSH 5 ML FLUSH IVF SCH ×2 (08:16→20:17)
--- NOTE | 2016-12-22 08:59 | HHI.PR ---
Objective Vitals Vital Signs Date Time Temp Pulse Resp B/P Pulse Ox O2 Delivery O2 Flow Rate FiO2 12/22/16 08:47 98 Nasal Cannula 2.00 12/22/16 04:00 97.1 84 20 137/73 99 12/22/16 04:00 80 12/22/16 00:00 98.3 90 20 135/63 94 12/22/16 00:00 85 12/21/16 21:51 98 Nasal Cannula 3.00 12/21/16 20:50 85 12/21/16 20:21 96 Nasal Cannula 2.00 12/21/16 20:00 96.6 95 18 148/76 96 12/21/16 16:58 91 22 143/76 100 Nasal Cannula 2 12/21/16 16:45 96 16 157/73 100 Nasal Cannula 2 12/21/16 16:30 96 16 148/84 99 Nasal Cannula 2 12/21/16 16:25 99.3 97 16 152/69 100 Nasal Cannula 2 12/21/16 14:42 90 136/66 96 12/21/16 11:34 96.5 78 17 151/76 98 I/O 12/21/16 12/21/16 12/21/16 12/22/16 12/22/16 12/22/16 07:00 15:00 23:00 07:00 15:00 23:00 Intake Total 700 ml 150 ml Output Total 2000 ml 1100 ml 50 ml Balance -2000 ml -400 ml 100 ml Intake Oral 500 ml 150 ml IV Total 100 ml Other 100 ml Output Urine Total 100 ml 50 ml Hemodialysis 2000 ml Estimated Blood Loss 50 ml Other 950 ml # Bowel Movements 0 0 Result Diagram: 12/22/16 0655 12/22/16 0655 Procedures Reduction and intramedullary nail fixation right hip A/P Problem List: (1) Intertrochanteric fracture of right hip ICD Code: S72.141A Status: Acute AbandoRic MD Dec 22, 2016 08:59
--- NOTE | 2016-12-22 09:02 | HHI.PR ---
Subjective Remarks Follow-up orthopedic injury. Complaining of mild right hip pain. She is passing gas. Currently on 2 L nasal cannula states she uses oxygen at home. Discussed with RN Objective Vitals Vital Signs Date Time Temp Pulse Resp B/P Pulse Ox O2 Delivery O2 Flow Rate FiO2 12/22/16 08:47 98 Nasal Cannula 2.00 12/22/16 04:00 97.1 84 20 137/73 99 12/22/16 04:00 80 12/22/16 00:00 98.3 90 20 135/63 94 12/22/16 00:00 85 12/21/16 21:51 98 Nasal Cannula 3.00 12/21/16 20:50 85 12/21/16 20:21 96 Nasal Cannula 2.00 12/21/16 20:00 96.6 95 18 148/76 96 12/21/16 16:58 91 22 143/76 100 Nasal Cannula 2 12/21/16 16:45 96 16 157/73 100 Nasal Cannula 2 12/21/16 16:30 96 16 148/84 99 Nasal Cannula 2 12/21/16 16:25 99.3 97 16 152/69 100 Nasal Cannula 2 12/21/16 14:42 90 136/66 96 12/21/16 11:34 96.5 78 17 151/76 98 I/O 12/21/16 12/21/16 12/21/16 12/22/16 12/22/16 12/22/16 07:00 15:00 23:00 07:00 15:00 23:00 Intake Total 700 ml 150 ml Output Total 2000 ml 1100 ml 50 ml Balance -2000 ml -400 ml 100 ml Intake Oral 500 ml 150 ml IV Total 100 ml Other 100 ml Output Urine Total 100 ml 50 ml Hemodialysis 2000 ml Estimated Blood Loss 50 ml Other 950 ml # Bowel Movements 0 0 Result Diagram: 12/22/16 0655 12/22/16 0655 Imaging Last Impressions Hip and Pelvis X-Ray 12/21/16 0000 Signed Impressions: Service Date/Time: Wednesday, December 21, 2016 05:16 - CONCLUSION: Intertrochanteric fracture. K. Marcos Dumont MD Hip X-Ray 12/21/16 0000 Signed Impressions: Service Date/Time: Wednesday, December 21, 2016 15:59 - CONCLUSION: Anatomic alignment. Blayne Sheets MD FACR Objective Remarks GENERAL: This is a well-nourished, well-developed patient, in no apparent distress. SKIN: No rashes, ecchymoses or lesions. Cool and dry. Permacath right chest HEAD: Atraumatic. Normocephalic. No temporal or scalp tenderness. EYES: Pupils equal round and reactive. Extraocular motions intact. No scleral icterus. No injection or drainage. ENT: Nose without bleeding, purulent drainage or septal hematoma. Throat without erythema, tonsillar hypertrophy or exudate. Uvula midline. Airway patent. NECK: Trachea midline. No JVD or lymphadenopathy. Supple, nontender, no meningeal signs. CARDIOVASCULAR: Regular rate and rhythm without murmurs, gallops, or rubs. RESPIRATORY: Clear to auscultation. Breath sounds equal bilaterally. No wheezes , rales, or rhonchi. GASTROINTESTINAL: Abdomen soft, non-tender, nondistended. No guarding. MUSCULOSKELETAL: Extremities without clubbing, cyanosis but with lower extremity pitting edema. Right hip tender. NEUROLOGICAL: Awake and alert. Cranial nerves II through XII intact. Motor and sensory grossly within normal limits. Five out of 5 muscle strength in all muscle groups. Normal speech. Procedures Reduction and intramedullary nail fixation right hip A/P Problem List: (1) Intertrochanteric fracture of right hip ICD Code: S72.141A Status: Acute Assessment and Plan This is a 65-year-old female who presented to the emergency department because of right hip pain. She lost balance and complained of excruciating pain on the right hip unable to bear weight. She was brought to the emergency and was found to have a fracture of the intertrochanteric right femur. Right intertrochanteric femur fracture status post repair. Stable continue pain management with Lortab and IV Dilaudid, incentive spirometry, wound care, physical therapy and DVT prophylaxis with subcutaneous heparin. End-stage renal disease on hemodialysis. On hemodialysis management per nephrology Hypotension on midodrine. We will monitor Coronary artery disease status post [place] with negative stress test a year ago. Patient denies chest pain. EKG with sinus rhythm with no acute ST-T changes COPD, chronic respiratory failure on home oxygen. Stable continue oxygen and nebulizations diabetes mellitus. Monitor fingerstick sugars sliding scale coverage. Stable History of lung cancer in 2013 status post resection and radiotherapy in remission, GERD, hepatitis C, brain aneurysm status post stenting, neutropenia secondary to high circulating ALLEN on Neupogen shots, anxiety and depression. Continue outpatient medications as appropriate. Tobacco cessation DVT prophylaxis with SCD and early ambulation. Pharmacological prophylaxis per surgery Discharge Planning Rehabilitation when cleared by orthopedic surgery Ric Solano MD Dec 22, 2016 09:02
[2016-12-22] MEDS ORDERED: ceFAZolin 2 GM PREMIX 50 ML IV ONE (11:00)
--- NOTE | 2016-12-22 14:31 | PD.ORT.PN ---
Subjective Subjective Remarks Patient comfortable. Pain controlled. Objective Vitals Vital Signs Date Time Temp Pulse Resp B/P Pulse Ox O2 Delivery O2 Flow Rate FiO2 12/22/16 12:00 96.1 85 16 108/69 97 12/22/16 08:47 98 Nasal Cannula 2.00 12/22/16 08:00 97.6 85 16 144/65 98 12/22/16 04:00 97.1 84 20 137/73 99 12/22/16 04:00 80 12/22/16 00:00 98.3 90 20 135/63 94 12/22/16 00:00 85 12/21/16 21:51 98 Nasal Cannula 3.00 12/21/16 20:50 85 12/21/16 20:21 96 Nasal Cannula 2.00 12/21/16 20:00 96.6 95 18 148/76 96 12/21/16 16:58 91 22 143/76 100 Nasal Cannula 2 12/21/16 16:45 96 16 157/73 100 Nasal Cannula 2 12/21/16 16:30 96 16 148/84 99 Nasal Cannula 2 12/21/16 16:25 99.3 97 16 152/69 100 Nasal Cannula 2 12/21/16 14:42 90 136/66 96 I/O 12/21/16 12/21/16 12/21/16 12/22/16 12/22/16 12/22/16 07:00 15:00 23:00 07:00 15:00 23:00 Intake Total 700 ml 150 ml Output Total 2000 ml 1100 ml 50 ml Balance -2000 ml -400 ml 100 ml Intake Oral 500 ml 150 ml IV Total 100 ml Other 100 ml Output Urine Total 100 ml 50 ml Hemodialysis 2000 ml Estimated Blood Loss 50 ml Other 950 ml # Bowel Movements 0 0 Result Diagram: 12/22/16 0655 12/22/16 0655 Imaging Last 72 hours Impressions Hip and Pelvis X-Ray 12/21/16 0000 Signed Impressions: Service Date/Time: Wednesday, December 21, 2016 05:16 - CONCLUSION: Intertrochanteric fracture. Ivana Dumont MD Last 24 hours Impressions Hip and Pelvis X-Ray 12/21/16 0000 Signed Impressions: Service Date/Time: Wednesday, December 21, 2016 05:16 - CONCLUSION: Intertrochanteric fracture. Ivana Dumont MD Objective Remarks Right hip dressing C/D/I calves soft negative Ivan's NVI Assessment & Plan Assessment and Plan POD #1 ORIF Right Hip Intertrochanteric Nail Pain management DVT prophylaxis Physical therapy - WBAT D/C planning Home HHC vs SNF Monitor Marco Nguyen Dec 22, 2016 14:31
[2016-12-22] MEDS: HEPARIN SODIUM - SQ 10,000 UNITS/ML VIAL SQ SCH (15:29)
--- NOTE | 2016-12-22 15:41 | HHI.NPPN ---
Subjective Additional Remarks No acute complaints, s/p hip repair Objective Data Data 12/21/16 12/22/16 19:00 07:00 Intake Total 200 ml 650 ml Output Total 3000 ml 150 ml Balance -2800 ml 500 ml Intake Oral 0 ml 650 ml IV Total 100 ml Other 100 ml Output Urine Total 0 ml 150 ml Hemodialysis 2000 ml Estimated Blood Loss 50 ml Other 950 ml # Bowel Movements 0 Vital Signs Date Time Temp Pulse Resp B/P Pulse Ox O2 Delivery O2 Flow Rate FiO2 12/22/16 12:00 96.1 85 16 108/69 97 12/22/16 12:00 88 12/22/16 08:47 98 Nasal Cannula 2.00 12/22/16 08:00 97.6 85 16 144/65 98 12/22/16 08:00 86 12/22/16 04:00 97.1 84 20 137/73 99 12/22/16 04:00 80 12/22/16 00:00 98.3 90 20 135/63 94 12/22/16 00:00 85 12/21/16 21:51 98 Nasal Cannula 3.00 12/21/16 20:50 85 12/21/16 20:21 96 Nasal Cannula 2.00 12/21/16 20:00 96.6 95 18 148/76 96 12/21/16 16:58 91 22 143/76 100 Nasal Cannula 2 12/21/16 16:45 96 16 157/73 100 Nasal Cannula 2 12/21/16 16:30 96 16 148/84 99 Nasal Cannula 2 12/21/16 16:25 99.3 97 16 152/69 100 Nasal Cannula 2 -: 12/22/16 0655 12/22/16 0655 Physical Exam General Appearance: Well Developed, Well Nourished, No Acute Distress Eyes Eye Exam: Pupils Equal Throat Throat Exam: Oral Mucosa [place] & Moist Neck Neck Exam: Neck Supple Pulmonary Resp Exam: Clear Bilaterally Cardiology CV Exam: Regular, Normal Sinus Rhythm Gastrointestinal/Abdomen GI Exam: Soft, Non-Tender, Bowel Sounds Present Integumentary Skin Exam: Dry, Intact Extremeties Extremities Exam: No Edema Neurologic Neuro Exam: Alert, Awake, Oriented, Speech Clear Psychiatric Psych Exam: Appropriate Responses Assessment/Plan Problem List: (1) ESRD (end stage renal disease) Plan: HD MWF - HD done yesterday Plan for next HD Saturday. Volume status, electrolytes stable. Apparently planning to change to TTS HD soon as an outpatient. Can continue MWF HD for now inpatient. (2) Hypotension Plan: Continue with midodrine (3) Intertrochanteric fracture of right hip Plan: Orthopedic following ORIF Right Hip Intertrochanteric Nail, POD #1 Stable today Shaheed Bourgeois MD Dec 22, 2016 15:41
[2016-12-22] MEDS ORDERED: LIDO1CRE31 TOPICAL (19:33)
[2016-12-22] MEDS ORDERED: VENTAER INH (21:07)
[2016-12-23] VITALS: BP 108/55; PULSE 80; RESP 18; TEMP 96.1; O2SAT 97
[2016-12-23] MEDS: ACETAMINOPHEN/HYDROcodone 325 MG/7.5 MG TAB PO PRN ×4 (02:13→12:57)
[2016-12-23] MEDS: HEPARIN SODIUM - SQ 10,000 UNITS/ML VIAL SQ SCH (03:24)
[2016-12-23 04:00] VITALS: BP 117/61; PULSE 82; RESP 18; TEMP 97; O2SAT 94
[2016-12-23] MEDS: RESP: ALBUTEROL 2.5 MG/IPRATROPIUM 0.5 MG NEB (SCH) NEB ×2 (04:38→09:07)
[2016-12-23] MEDS: INSULIN ASPART SUPPLEMENTAL SCALE SQ SCH ×2 (06:44→11:00)
[2016-12-23 08:00] VITALS: BP 109/63; PULSE 75; RESP 14; TEMP 97.3; O2SAT 97
[2016-12-23] MEDS: guaiFENesin E.R. 600 MG TAB PO SCH (08:48)
[2016-12-23] MEDS: GABAPENTIN 100 MG CAP PO SCH (08:48)
[2016-12-23] MEDS: CHOLECALCIFEROL (VIT D3) 1000 UNIT TAB PO SCH (08:48)
[2016-12-23] MEDS: MIDODRINE 5 MG TAB PO SCH ×2 (08:48→12:58)
[2016-12-23] MEDS: FLUoxetine HCL 20 MG CAP PO SCH (08:48)
[2016-12-23] MEDS: CALCIUM ACETATE 667 MG CAP PO SCH ×2 (08:48→12:58)
[2016-12-23] MEDS: FAMOTIDINE 20 MG TAB PO SCH (08:49)
[2016-12-23] MEDS: ALPRAZolam 1 MG TAB PO SCH (08:49)
--- NOTE | 2016-12-23 08:59 | PD.ORT.PN ---
Subjective Subjective Remarks Patient comfortable. Pain controlled. Objective Vitals Vital Signs Date Time Temp Pulse Resp B/P Pulse Ox O2 Delivery O2 Flow Rate FiO2 12/23/16 04:00 97.0 82 18 117/61 94 12/23/16 00:00 96.1 80 18 108/55 97 12/22/16 21:06 Nasal Cannula 2.00 12/22/16 21:06 82 12/22/16 20:35 96 Nasal Cannula 1.00 12/22/16 20:00 96.8 90 16 104/63 96 12/22/16 16:00 97.5 79 14 112/55 96 12/22/16 12:00 96.1 85 16 108/69 97 12/22/16 12:00 88 I/O 12/22/16 12/22/16 12/22/16 12/23/16 12/23/16 12/23/16 07:00 15:00 23:00 07:00 15:00 23:00 Intake Total 150 ml 480 ml 600 ml 240 ml Output Total 50 ml Balance 100 ml 480 ml 600 ml 240 ml Intake Oral 150 ml 480 ml 600 ml 240 ml Output Urine Total 50 ml # Voids 1 0 # Bowel Movements 0 0 0 Result Diagram: 12/22/16 0655 12/22/16 0655 Imaging Last 72 hours Impressions Hip and Pelvis X-Ray 12/21/16 0000 Signed Impressions: Service Date/Time: Wednesday, December 21, 2016 05:16 - CONCLUSION: Intertrochanteric fracture. Ivana Dumont MD Last 24 hours Impressions Hip and Pelvis X-Ray 12/21/16 0000 Signed Impressions: Service Date/Time: Wednesday, December 21, 2016 05:16 - CONCLUSION: Intertrochanteric fracture. Ivana Dumont MD Objective Remarks Right hip dressing C/D/I calves soft negative Ivan's NVI Assessment & Plan Assessment and Plan POD #2 ORIF Right Hip Intertrochanteric Nail Pain management DVT prophylaxis Physical therapy - WBAT Orthopedically stable for discharge. Will need medical clearance. D/C planning - anticipating SNF Monitor Marco Nguyen Dec 23, 2016 08:59
[2016-12-23] MEDS: TIOTROPIUM BROMIDE 18 MCG INH INH SCH (09:00)
[2016-12-23] MEDS: SODIUM CHLORIDE 0.9% FLUSH 5 ML FLUSH IVF SCH (09:00)
[2016-12-23] MEDS: DOCUSATE SODIUM 50 MG/SENNA 8.6 MG TAB PO SCH (09:00)
[2016-12-23] MEDS: BUDESONIDE-FORMOTEROL 160/4.5 MCG INHALER INH SCH (09:00)
[2016-12-23 09:08] VITALS: O2SAT 98
--- NOTE | 2016-12-23 10:07 | HHI.PR ---
Subjective Remarks Follow-up orthopedic injury, end-stage renal disease, diabetes mellitus and hypertension. Patient developed urinary retention with 900 mL and Veras catheter reinserted. Patient complained of burning upon urination. Discussed with RN Objective Vitals Vital Signs Date Time Temp Pulse Resp B/P Pulse Ox O2 Delivery O2 Flow Rate FiO2 12/23/16 09:08 98 21 12/23/16 08:00 97.3 75 14 109/63 97 12/23/16 04:00 97.0 82 18 117/61 94 12/23/16 00:00 96.1 80 18 108/55 97 12/22/16 21:06 Nasal Cannula 2.00 12/22/16 21:06 82 12/22/16 20:35 96 Nasal Cannula 1.00 12/22/16 20:00 96.8 90 16 104/63 96 12/22/16 16:00 97.5 79 14 112/55 96 12/22/16 12:00 96.1 85 16 108/69 97 12/22/16 12:00 88 I/O 12/22/16 12/22/16 12/22/16 12/23/16 12/23/16 12/23/16 07:00 15:00 23:00 07:00 15:00 23:00 Intake Total 150 ml 480 ml 600 ml 240 ml Output Total 50 ml Balance 100 ml 480 ml 600 ml 240 ml Intake Oral 150 ml 480 ml 600 ml 240 ml Output Urine Total 50 ml # Voids 1 0 # Bowel Movements 0 0 0 Result Diagram: 12/22/16 0655 12/22/16 0655 Imaging Last Impressions Hip and Pelvis X-Ray 12/21/16 0000 Signed Impressions: Service Date/Time: Wednesday, December 21, 2016 05:16 - CONCLUSION: Intertrochanteric fracture. K. Marcos Dumont MD Hip X-Ray 12/21/16 0000 Signed Impressions: Service Date/Time: Wednesday, December 21, 2016 15:59 - CONCLUSION: Anatomic alignment. Blayne Sheets MD FACR Objective Remarks GENERAL: This is a well-nourished, well-developed patient, in no apparent distress. SKIN: No rashes, ecchymoses or lesions. Cool and dry. Permacath right chest HEAD: Atraumatic. Normocephalic. No temporal or scalp tenderness. EYES: Pupils equal round and reactive. Extraocular motions intact. No scleral icterus. No injection or drainage. ENT: Nose without bleeding, purulent drainage or septal hematoma. Throat without erythema, tonsillar hypertrophy or exudate. Uvula midline. Airway patent. NECK: Trachea midline. No JVD or lymphadenopathy. Supple, nontender, no meningeal signs. CARDIOVASCULAR: Regular rate and rhythm without murmurs, gallops, or rubs. RESPIRATORY: Clear to auscultation. Breath sounds equal bilaterally. No wheezes , rales, or rhonchi. GASTROINTESTINAL: Abdomen soft, non-tender, nondistended. No guarding. MUSCULOSKELETAL: Extremities without clubbing, cyanosis but with lower extremity pitting edema. Right hip tender. NEUROLOGICAL: Awake and alert. Cranial nerves II through XII intact. Motor and sensory grossly within normal limits. Five out of 5 muscle strength in all muscle groups Procedures Reduction and intramedullary nail fixation right hip A/P Problem List: (1) Intertrochanteric fracture of right hip ICD Code: S72.141A Status: Acute Assessment and Plan This is a 65-year-old female who presented to the emergency department because of right hip pain. She lost balance and complained of excruciating pain on the right hip unable to bear weight. She was brought to the emergency and was found to have a fracture of the intertrochanteric right femur. Right intertrochanteric femur fracture status post repair. Stable continue pain management with Lortab and IV Dilaudid, incentive spirometry, wound care, physical therapy and DVT prophylaxis with subcutaneous heparin. Urinary retention. Veras care. Obtain urinalysis End-stage renal disease on hemodialysis. On hemodialysis management per nephrology Hypotension on midodrine. We will monitor Coronary artery disease status post [place] with negative stress test a year ago. Patient denies chest pain. EKG with sinus rhythm with no acute ST-T changes COPD, chronic respiratory failure on home oxygen. Stable continue oxygen and nebulizations diabetes mellitus. Monitor fingerstick sugars sliding scale coverage. Stable History of lung cancer in 2012 status post resection and radiotherapy in remission, GERD, hepatitis C, brain aneurysm status post stenting, neutropenia secondary to high circulating ALLEN on Neupogen shots, anxiety and depression. Continue outpatient medications as appropriate. Tobacco cessation DVT prophylaxis with SCD and early ambulation. Pharmacological prophylaxis per surgery Discharge Planning Rehabilitation Ric Solano MD Dec 23, 2016 10:07
[2016-12-23] MEDS ORDERED: HEPA10003 SQ (11:16)
[2016-12-23 12:00] VITALS: BP 97/58; PULSE 72; RESP 15; TEMP 96.5; O2SAT 93
[2016-12-23 12:17] LABS: BLOOD, URINE LARGE (NEG); COMMENT (UR) CATH-CULTURE IND; CULTURE IF INDICATED CATH CULTURE IND; GLUCOSE,URINE NEG (NEG); KETONE, URINE NEG (NEG); NITRITE,URINE NEG (NEG); SQUAMOUS EPITHELIAL CELL URINE 2 /hpf (0-5); URINE COLOR LIGHT-RED (YELLW/STRAW)
[2016-12-23] MEDS ORDERED: CEFU1TAB20 PO (13:43)
--- NOTE | 2016-12-23 13:44 | HHI.DS ---
Discharge Summary Admission Date Dec 21, 2016 at 07:12 Discharge Date: Dec 23, 2016 Admitting Diagnosis Right sided intertrochanteric fracture (1) Intertrochanteric fracture of right hip ICD Code: S72.141A Diagnosis: Principal Procedures Reduction and intramedullary nail fixation right hip Brief History - From Admission This is a 65-year-old female with history of lung cancer in 2013 status post resection and radiotherapy in remission, end-stage renal disease on hemodialysis , hypotension on midodrine, coronary artery disease status post [place] with negative stress test a year ago, COPD, chronic respiratory failure on home oxygen, diabetes mellitus, GERD, hepatitis C, brain aneurysm status post stenting, neutropenia secondary to high circulating ALLEN on Neupogen shots, anxiety and depression. She got up this morning and lost balance and complained of excruciating pain on the right hip unable to bear weight. She was brought to the emergency and found tp have a fracture of the intertrochanteric right femur. Patient denies having chest pain, shortness of breath, palpitations, nausea, diaphoresis and syncope prior to the fall. All other systems reviewed negative. CBC/BMP: 12/22/16 0655 12/22/16 0655 Significant Findings Laboratory Tests Test 12/21/16 12/21/16 12/22/16 12/23/16 05:07 10:26 06:55 11:30 White Blood Count 3.3 TH/MM3 3.2 TH/MM3 (4.0-11.0) (4.0-11.0) Neutrophils % (Manual) 8 % (16-70) Band Neutrophils % 11 % (0-6) Monocytes % 21 % (0-8) Eosinophils % 11 % (0-4) Basophils % 3 % (0-2) Neutrophils # (Manual) 0.7 TH/MM3 (1.8-7.7) Myelocytes 2 % (0-0) Ovalocytes 1+ (NORMAL) Sodium Level 134 MEQ/L (136-145) Blood Urea Nitrogen 28 MG/DL (7-18) 29 MG/DL (7-18) Creatinine 4.02 MG/DL 3.60 MG/DL (0.50-1.00) (0.50-1.00) Estimat Glomerular Filtration 11 ML/MIN (>89) 13 ML/MIN (>89) Rate Random Glucose 71 MG/DL (74-106) Troponin I LESS THAN 0.02 NG/ML (0.02-0.05) Red Blood Count 3.89 MIL/MM3 (4.00-5.30) Hemoglobin 11.0 GM/DL (11.6-15.3) Hematocrit 34.0 % (35.0-46.0) Monocytes (%) (Auto) 46.0 % (0.0-8.0) Eosinophils (%) (Auto) 5.7 % (0.0-4.0) Neutrophils # (Auto) 1.1 TH/MM3 (1.8-7.7) Lymphocytes # (Auto) 0.5 TH/MM3 (1.0-4.8) Monocytes # (Auto) 1.5 TH/MM3 (0-0.9) Albumin 3.3 GM/DL (3.4-5.0) Urine Color LIGHT-RED (YELLW/STRAW) Urine Turbidity HAZY (CLEAR) Urine Protein 100 mg/dL (NEG-TRACE) Urine Occult Blood LARGE (NEG) Urine Leukocyte Esterase SMALL (NEG) Urine WBC 11 /hpf (0-5) Urine Yeast (Budding) RARE (NONE) Imaging Last Impressions Hip and Pelvis X-Ray 12/21/16 0000 Signed Impressions: Service Date/Time: Wednesday, December 21, 2016 05:16 - CONCLUSION: Intertrochanteric fracture. K. Marcos Dumont MD Hip X-Ray 12/21/16 Signed Impressions: Service Date/Time: Wednesday, December 21, 2016 15:59 - CONCLUSION: Anatomic alignment. Blayne Sheets MD FACR PE at Discharge GENERAL: This is a well-nourished, well-developed patient, in no apparent distress. SKIN: No rashes, ecchymoses or lesions. Cool and dry. Permacath right chest HEAD: Atraumatic. Normocephalic. No temporal or scalp tenderness. EYES: Pupils equal round and reactive. Extraocular motions intact. No scleral icterus. No injection or drainage. ENT: Nose without bleeding, purulent drainage or septal hematoma. Throat without erythema, tonsillar hypertrophy or exudate. Uvula midline. Airway patent. NECK: Trachea midline. No JVD or lymphadenopathy. Supple, nontender, no meningeal signs. CARDIOVASCULAR: Regular rate and rhythm without murmurs, gallops, or rubs. RESPIRATORY: Clear to auscultation. Breath sounds equal bilaterally. No wheezes , rales, or rhonchi. GASTROINTESTINAL: Abdomen soft, non-tender, nondistended. No guarding. MUSCULOSKELETAL: Extremities without clubbing, cyanosis but with lower extremity pitting edema. Right hip tender. NEUROLOGICAL: Awake and alert. Cranial nerves II through XII intact. Motor and sensory grossly within normal limits. Five out of 5 muscle strength in all muscle groups Hospital Course This is a 65-year-old female who presented to the emergency department because of right hip pain. She lost balance and complained of excruciating pain on the right hip unable to bear weight. She was brought to the emergency and was found to have a fracture of the intertrochanteric right femur. Right intertrochanteric femur fracture status post repair. Stable continue pain management with Lortab and IV Dilaudid, incentive spirometry, wound care, physical therapy and DVT prophylaxis with subcutaneous heparin. Urinary retention. Abnormal urinalysis. Patient has UTI start empiric Ceftin. Discontinue Veras catheter as soon as possible End-stage renal disease on hemodialysis. On hemodialysis management per nephrology Hypotension on midodrine. We will monitor Coronary artery disease status post [place] with negative stress test a year ago. Patient denies chest pain. EKG with sinus rhythm with no acute ST-T changes COPD, chronic respiratory failure on home oxygen. Stable continue oxygen and nebulizations diabetes mellitus. Monitor fingerstick sugars sliding scale coverage. Stable History of lung cancer in 2013 status post resection and radiotherapy in remission, GERD, hepatitis C, brain aneurysm status post stenting, neutropenia secondary to high circulating ALLEN on Neupogen shots, anxiety and depression. Continue outpatient medications as appropriate. Tobacco cessation DVT prophylaxis with SCD and early ambulation. Pharmacological prophylaxis per surgery Pt Condition on Discharge: Stable Discharge Disposition: Rehab Inpatient Discharge Time: > 30 minutes Discharge Instructions DIET: Follow Instructions for: Diabetic Diet, Renal Failure Diet Activities you can perform: Regular-No Restrictions Activities to Avoid: Driving Follow up Referrals: Orthopedics - 1 Week Orthopedics - 2 Weeks @ [facility] with Robert Schuler MD PCP Follow-up - 1 Week New Medications: Cefuroxime (Cefuroxime) 500 Mg Tab 250 MG PO BID Infection #14 Ref 0 TAB Hydrocodone-Acetaminophen ([place]) 7.5-325 mg Tab 1 TAB PO Q4H PRN PAIN #60 Ref 0 TAB Walker/Adult/Folding (Walker/Adult/Folding) 1 Mis Mis 1 EA .ROUTE DIRECTED #1 Ref 0 EA Heparin Sodium (Porcine) (Heparin Sodium) 10,000 Unit/Ml Inj 5000 UNITS SQ Q12H Prevent Blood Clot #42 INJECTION Continued Medications: Alprazolam (Alprazolam) 0.5 Mg Tab 1 MG PO BID ANXIETY #6 Ref 0 TAB (This prescription has been renewed) Budesonide-Formoterol Inh (Symbicort Inh) 160-4.5 Mcg/Act Aero 2 PUFF INH Q12HR #1 Ref 0 INHALER Calcium Acetate (Phosphate Bin (Calcium Acetate) 667 Mg Cap 667 MG PO TIDPC dialysis #180 Ref 3 CAP Calcium Carbonate (Antacid) (Tums) 500 Mg Chew 500 MG CHEW DAILY PRN HEARTBURN Ref 0 TAB Cholecalciferol (Vitamin D3) 2,000 Unit Cap 2000 UNITS PO DAILY Nutritional Supplement #1 Ref 0 BOTTLE Docusate Sodium (Docusate Sodium) 100 Mg Cap 100 MG PO BID Prevent Constipation #60 Ref 0 CAP Famotidine (Famotidine) 20 Mg Tab 20 MG PO DAILY #60 Ref 0 TAB Fluoxetine (Fluoxetine) 20 Mg Tab 20 MG PO DAILY #30 Ref 0 TAB Gabapentin (Gabapentin) 100 Mg Cap 100 MG PO TID #90 Ref 0 CAP Guaifenesin ER 12 HR (Guaifenesin ER 12 HR) 1,200 Mg Melania 600 MG PO BID Chest Congestion/Cough Ref 0 TAB Midodrine (Midodrine) 10 Mg Tab 10 MG PO TID Control Low Blood Pressure #90 Ref 0 TAB Tiotropium Inh (Spiriva Handihaler) 18 Mcg Cap 18 MCG INH DAILY 1 capsule = 18 mcg COPD #30 Ref 0 CAP Additional Information I spent 35 minutes [id number] with the patient or on the fenton discussing the patient's disposition, prognosis, and plan of care with patient's caregivers. Over half the time spent was devoted to counseling the patient regarding placement in coordinating care with caregivers and case management. Ric Solano MD Dec 23, 2016 13:44
[2016-12-23] MEDS ORDERED: CEFUROXIME AXETIL 250 MG TAB PO SCH (14:00)
== END 2016-12-23 14:18 | DRG 480 ==
LOC: NEPE 04:27 → NEDA 07:12 → N06B 08:57 → N06A 17:06
PROVIDERS: ADMIT Internal Medicine; ATTEND Internal Medicine
PROC: 5A1D00Z (ICD-10-PCS; 2016-12-21)
PROC: 0QS606Z Reposition Right Upper Femur with Intramedullary Internal Fixation Device, Open Approach (ICD-10-PCS; principal; 2016-12-21 15:14)
PROC: 0T9B70Z Drainage of Bladder with Drainage Device, Via Natural or Artificial Opening (ICD-10-PCS; 2016-12-23)
DX: S72.141A Displaced intertrochanteric fracture of right femur, initial encounter for closed fracture (principal); N18.6 End stage renal disease; J96.10 Chronic respiratory failure, unspecified whether with hypoxia or hypercapnia; D70.9 Neutropenia, unspecified; I95.9 Hypotension, unspecified; E11.22 Type 2 diabetes mellitus with diabetic chronic kidney disease; N39.0 Urinary tract infection, site not specified; J44.9 Chronic obstructive pulmonary disease, unspecified; K21.9 Gastro-esophageal reflux disease without esophagitis; M19.90 Unspecified osteoarthritis, unspecified site; I25.2 Old myocardial infarction; F32.9 Major depressive disorder, single episode, unspecified; F17.210 Nicotine dependence, cigarettes, uncomplicated; M81.0 Age-related osteoporosis without current pathological fracture; I25.10 Atherosclerotic heart disease of native coronary artery without angina pectoris; F41.9 Anxiety disorder, unspecified; W01.0XXA Fall on same level from slipping, tripping and stumbling without subsequent striking against object, initial encounter; Y92.019 Unspecified place in single-family (private) house as the place of occurrence of the external cause; Z80.1 Family history of malignant neoplasm of trachea, bronchus and lung; Z80.3 Family history of malignant neoplasm of breast; Z80.6 Family history of leukemia; Z85.118 Personal history of other malignant neoplasm of bronchus and lung; Z86.19 Personal history of other infectious and parasitic diseases; Z88.1 Allergy status to other antibiotic agents; Z88.5 Allergy status to narcotic agent; Z92.3 Personal history of irradiation; Z99.2 Dependence on renal dialysis; Z99.81 Dependence on supplemental oxygen
CPT/HCPCS: 73502; 76000; 80048; 80053; 81001; 82306; 82550; 82948; 84484; 85007; 85025; 85027; 85610; 85730; 87077; 87086; 87186; 90935; 93005; 94640; 94664; 96374; C1713; J0690; J1170; J1580; J1644; J1815; J2370; J2405; J3010; J3370; J7050

== ENCOUNTER 2017-04-17 21:21 | Emergency (ER) | payer MEDICARE, OTHER ==
[~2017-04-17] VITALS: Ht 165.1 cm; Wt 60.5 kg
[~2017-04-17 21:21] MED LIST changes: -ALPR0.5T3 PO; -CLIN1CAP6 PO; +COMMODE 3-IN-11 MIS; +CYPR4TAB PO; +FLUO1TAB3 PO; -FLUO20CA4 PO; +GETGO ROLLING W1 MI1; +HOSP BED1; -MIDO5TAB PO; -MUCI600T PO; +OXYC-395 PO; -OXYC1CAP8 PO; -RESP: ALBUTEROL 2.5 MG/IPRATROPIUM 0.5 MG NEB (PRN) NEB; -SYMB160A INH; -TUMS500C CHEW; +VITA2000 PO; -VITA200012 PO; +WHEEMIS3; +XANA1TAB2 PO
[2017-04-17 21:30] VITALS: BP 122/56; PULSE 68; RESP 16; TEMP 97.8; O2SAT 98
[2017-04-17] MEDS ORDERED: TUMS500C CHEW ×2 (22:01)
[2017-04-17] MEDS ORDERED: VARE.5 PO ×2 (22:01)
[2017-04-17] MEDS ORDERED: DIAL800T3 ×2 (22:01)
[2017-04-17] MEDS ORDERED: PROM25TA10 PO ×2 (22:01)
[2017-04-17] MEDS ORDERED: MUCI30TA2 PO ×2 (22:01)
[2017-04-17] MEDS ORDERED: ASPI81CH CHEW ×2 (22:01)
[2017-04-17] MEDS ORDERED: VENTAER INH ×2 (22:01)
[2017-04-17] MEDS ORDERED: SYMB160A INH ×2 (22:01)
--- NOTE | 2017-04-17 22:16 | PD ---
HPI Chief Complaint: Flank/Kidney Pain Time Seen by Provider: 21:54 Travel History International Travel<30 days: No Contact w/Intl Traveler<30days: No Traveled to known affect area: No History of Present Illness HPI This is a 66-year-old female who has a history of end-stage renal disease on dialysis who presents to the emergency department with right sided flank pain, constant, moderate severity for 1 day associated with some dysuria and blood- tinged urine. She's not had any fevers or chills. Her daughter says she's vomited multiple times. The patient does make urine and the daughter is concerned because her urine output has been much less than normal. She did have dialysis yesterday. She has a history of a cholecystectomy but she does have her appendix. She says she's had some constipation but had a normal bowel movement today. PFSH Past Medical History Narrative Medical Chronic neutropenia COPD on 1 L of oxygen End-stage renal disease on dialysis History of aneurysm clipping Hx Anticoagulant Therapy: Yes (asa 81) Anxiety: Yes Depression: Yes Cancer: Yes (Lung, 2013, remission ) Cardiovascular Problems: Yes (htn, mi) Chemotherapy: No Chest Pain: Yes COPD: Yes Diabetes: Yes (DIET CONTROLLED) Patient Takes Glucophage: No Diminished Hearing: No Endocrine: Yes Gastrointestinal Disorders: Yes (CONSTIPATION) GERD: Yes Genitourinary: Yes (RETENTION, BURNING) Hepatitis: Yes (PREVIOUS FOOD BORNE HEPATITIS INFECTION PER CAREGIVER) Hiatal Hernia: Yes Immune Disorder: No Implanted Vascular Access Dvce: Yes Medical other: Yes (LEFT UPPER ARM AV FISTULA) Musculoskeletal: Yes (OA) Neurologic: Yes (BRAIN ANEURSYM WITH CAPPED STENT NO MRI) Psychiatric: No Reproductive: No Respiratory: Yes (COPD ON O2 AT HS, PRN DURING DAY) Immunizations Current: Yes Myocardial Infarction: Yes ("minor"@51) Pneumonia: Yes Radiation Therapy: Yes Renal Failure: Yes Thyroid Disease: No Tetanus Vaccination: Unknown Influenza Vaccination: Yes : 3 Para: 3 Past Surgical History Abdominal Surgery: Yes (cholecystectomy) AICD: No Body Medical Devices: brain stent capped Cardiac Surgery: Yes (cardiac cath) Cholecystectomy: Yes Ear Surgery: No Endocrine Surgery: No Eye Surgery: No Gynecologic Surgery: Yes (tubal ligation) Joint Replacement: Yes Neurologic Surgery: Yes (brain anuerysm with stent (capped)) Oral Surgery: No Pacemaker: No Thoracic Surgery: Yes (WEDGE RESECTION FOR SQUAMOUS CELL CARCINOMA) Other Surgery: Yes Social History Alcohol Use: No Tobacco Use: No (PT TAKING CHANTIX) Substance Use: No Allergies-Medications (Allergen,Severity, Reaction): Coded Allergies: morphine (Unverified Allergy, Severe, RASH, 04/17/17) ciprofloxacin (Unverified Adverse Reaction, Intermediate, NAUSEAS, ) codeine (Unverified Adverse Reaction, Intermediate, Vertigo, 04/17/17) *MDRO Multi-Drug Resistant Organism (Verified Adverse Reaction, Unknown, 04/17/17) 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, 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 Reported Meds & Prescriptions Reported Meds & Active Scripts Active Oxycodone (Oxycodone HCl) 10 Mg Tab 10 Mg PO Q6HR PRN Xanax (Alprazolam) 1 Mg Tab 1 Mg PO BID PRN Vitamin D3 (Cholecalciferol) 2,000 Unit Cap 2,000 Units PO DAILY Fluoxetine (Fluoxetine HCl) 20 Mg Tab 20 Mg PO DAILY Midodrine 10 Mg Tab 10 Mg PO TID Calcium Acetate (Calcium Acetate (Phosphate Bin) 667 Mg Cap 667 Mg PO TIDPC Famotidine 20 Mg Tab 20 Mg PO DAILY Docusate Sodium 100 Mg Cap 100 Mg PO BID PRN Spiriva Handihaler (Tiotropium Inh) 18 Mcg Cap 18 Mcg INH DAILY 30 Days 1 capsule = 18 mcg Gabapentin 100 Mg Cap 100 Mg PO TID Hospital Bed - Electric 1 Ea Ea 1 Ea .ROUTE DIRECTED Wheelchair (Device) 1 Mis Mis 1 Ea .ROUTE DIRECTED Commode 3-in-1 (Device) 1 Mis Mis 1 Ea .ROUTE DIRECTED Walker Rolling/GetGo (Device) 1 Mis Mis 1 Ea .ROUTE DIRECTED Reported Phenergan (Promethazine HCl) 25 Mg Tablet 25 Mg PO Q6H PRN Chantix (Varenicline) 0.5 Mg Tab 0.5 Mg PO DAILY Days 1-3 Dialyvite 800 (B-Complex W/ C & Folic Acid) 1 Tab Ventolin Hfa 18 GM Inh (Albuterol Sulfate) 90 Mcg/Act Aer 2 Puff INH Q4-6H PRN Tums (Calcium Carbonate (Antacid)) 500 Mg Chew 500 Mg CHEW PRN Symbicort Inh (Budesonide/Formoterol Fumarate) 160-4.5 Mcg/Act Aero 2 Puff INH Q12HR Mucinex DM (Dextromethorphan-Guaifenesin) 30-600 Mg Tab 2 Tab PO BID PRN Aspirin 81 Mg Chew 81 Mg CHEW DAILY Oxygen tank (Oxygen) 1 Ea Tank 2 Liter EDUARDO.CANULA HS Oxygen Concentrator Portable Gaseous 2 L/min via Nasal Cannula Continuous For 99 months Review of Systems Except as stated in HPI: all other systems reviewed are Neg Physical Exam Narrative GENERAL: Frail female in no acute distress. SKIN: Focused skin assessment warm and dry. HEAD: Atraumatic. Normocephalic. EYES: Pupils equal and round. No injection or drainage. ENT: Moist mucous membranes NECK: Trachea midline. CARDIOVASCULAR: Regular rate and rhythm. No murmur appreciated. RESPIRATORY: Diffuse mild expiratory wheezing with no accessory muscle use or increased work of breathing GASTROINTESTINAL: Abdomen soft, tender to palpation in the right lower quadrant with no rebound or guarding. : Right CVA tenderness. MUSCULOSKELETAL: No obvious deformities. NEUROLOGICAL: Awake and alert. No obvious cranial nerve deficits. Moving all extremities. PSYCHIATRIC: Appropriate mood and affect; insight and judgment normal. Data Data Last Documented VS Vital Signs Date Time Temp Pulse Resp B/P (MAP) Pulse Ox O2 Delivery O2 Flow Rate FiO2 04/17/17 22:31 97 Room Air 04/17/17 22:31 67 16 117/61 (79) 04/17/17 21:30 97.8 Orders Orders Complete Blood Count With Diff (04/17/17 22:09) Comprehensive Metabolic Panel (04/17/17 22:09) Urinalysis - C+S If Indicated (04/17/17 22:09) Blood Glucose (04/17/17 22:09) Ecg Monitoring (04/17/17 22:09) Iv Access Insert/Monitor (04/17/17 22:09) Oximetry (04/17/17 22:09) Oxygen Administration (04/17/17 22:09) Ct Abd/Pel W/O Iv Contrast (04/17/17 22:09) Labs Laboratory Tests Test 04/17/17 22:20 White Blood Count 5.1 TH/MM3 Red Blood Count 4.32 MIL/MM3 Hemoglobin 12.0 GM/DL Hematocrit 36.5 % Mean Corpuscular Volume 84.5 FL Mean Corpuscular Hemoglobin 27.6 PG Mean Corpuscular Hemoglobin Concent 32.7 % Red Cell Distribution Width 13.3 % Platelet Count 328 TH/MM3 Mean Platelet Volume 7.1 FL CBC Comment AUTO DIFF Urine Color PINK Urine Turbidity CLEAR Urine pH 7.5 Urine Specific Granite 1.006 Urine Protein 100 mg/dL Urine Glucose (UA) NEG mg/dL Urine Ketones NEG mg/dL Urine Occult Blood LARGE Urine Nitrite NEG Urine Bilirubin NEG Urine Leukocyte Esterase NEG Urine RBC 100-200 /hpf Urine WBC 3-5 /hpf Urine Squamous Epithelial Cells 6-8 /hpf Urine Bacteria NONE /hpf Microscopic Urinalysis Comment CULT NOT INDICATED Blood Urea Nitrogen 36 MG/DL Creatinine 5.40 MG/DL Random Glucose 91 MG/DL Total Protein 8.8 GM/DL Albumin 3.7 GM/DL Calcium Level 9.2 MG/DL Alkaline Phosphatase 91 U/L Aspartate Amino Transf (AST/SGOT) 13 U/L Alanine Aminotransferase (ALT/SGPT) 15 U/L Total Bilirubin 0.5 MG/DL Sodium Level 133 MEQ/L Potassium Level 4.2 MEQ/L Chloride Level 99 MEQ/L Carbon Dioxide Level 26.7 MEQ/L Anion Gap 7 MEQ/L Estimat Glomerular Filtration Rate 8 ML/MIN [facility] Medical Decision Making Medical Screen Exam Complete: Yes Emergency Medical Condition: Yes Interpretation(s) Afebrile, no tachycardia, normotensive No leukocytosis Mild hyponatremia BUN is 36 Urinalysis demonstrates blood in the urine which has been seen on prior UAs Last 24 hours Impressions Abdomen/Pelvis CT 04/17/17 8460 Signed Impressions: Service Date/Time: Monday, April 17, 2017 22:38 - CONCLUSION: Intra-and extrahepatic biliary ductal dilatation which appears more prominent than previously. Jose Ivan MD Differential Diagnosis Nephrolithiasis, pyelonephritis, cholelithiasis, appendicitis Narrative Course This is a 66-year-old female who presents to the emergency department with right sided abdominal discomfort and some vomiting that's been going on today. She appears well on exam. She was placed on a monitor and an IV was established. Labs are obtained which are reassuring with no leukocytosis and normal liver function tests. CT abdomen and pelvis demonstrates some prominent biliary ductal dilation but in the absence of abnormal LFTs or signs of infection I think this can be followed as an outpatient. She has some blood in her urine but this is been seen on prior urinalysis as well. I think similarly can be followed up by Dr. Watkins. I patient can be discharged home to follow-up with her primary care physician. Diagnosis Primary Impression: Right sided abdominal pain Patient Instructions: General Instructions Additional Instructions: If you develop severe or worsening abdominal pain, fever>100.4, persistent vomiting or inability to eat or drink return to the emergency department immediately. You do have some blood in your urine. Have this followed up by your primary care doctor. Your extrahepatic and intrahepatic biliary ducts are somewhat dilated as well. Your blood work is all normal but your doctor should be made aware of this as well. Med/Other Pt SpecificInfo: No Change to Meds Disposition: 01 DISCHARGE HOME Condition: Stable Nathalia Dunn MD Apr 17, 2017 22:16
[2017-04-17 22:31] VITALS: BP 117/61; PULSE 67; RESP 16; O2SAT 97
[2017-04-17 22:33] LABS: BILIRUBIN, URINE NEG (NEG); BLOOD, URINE LARGE (NEG); GLUCOSE,URINE NEG (NEG); KETONE, URINE NEG (NEG); NITRITE,URINE NEG (NEG); PH, URINE 7.5 (5.0-8.5); URINE LEUKOCYTE ESTERASE NEG (NEG)
[2017-04-17 22:42] LABS: HEMATOCRIT 36.5 % (35.0-46.0); MEAN CELL VOLUME 84.5 FL (80.0-100.0); MEAN CORPUSCULAR HEMOGLOBIN 27.6 PG (27.0-34.0); MEAN CORPUSCULAR HGB CONC 32.7 % (32.0-36.0); MEAN PLATELET VOLUME 7.1 FL (7.0-11.0); PLATELET COUNT 328 TH/MM3 (150-450); RED BLOOD COUNT 4.32 MIL/MM3 (4.00-5.30); RED CELL DISTRIBUTION WIDTH 13.3 % (11.6-17.2); WHITE BLOOD COUNT 5.1 TH/MM3 (4.0-11.0)
[2017-04-17 22:50] LABS: CHLORIDE 99 MEQ/L (98-107); SODIUM (NA) 133 MEQ/L (136-145)
[2017-04-17 22:51] LABS: URINE COLOR PINK (YELLW/STRAW)
[2017-04-17 22:52] LABS: RBC, URINE 100-200 /hpf (0-3)
[2017-04-17 22:53] LABS: CALCIUM 9.2 MG/DL (8.5-10.1)
[2017-04-17 22:54] LABS: ALBUMIN 3.7 GM/DL (3.4-5.0); BICARBONATE 26.7 MEQ/L (21.0-32.0); BLOOD UREA NITROGEN 36 MG/DL (7-18); GLUCOSE,RANDOM 91 MG/DL (74-106)
[2017-04-17 22:57] LABS: ALT (GPT) 15 U/L (10-53); AST (GOT) 13 U/L (15-37); GLOMERULAR FILTRATION RATE 8 ML/MIN (>89)
[2017-04-17 22:59] LABS: TOTAL BILIRUBIN ADULT 0.5 MG/DL (0.2-1.0); TOTAL PROTEIN 8.8 GM/DL (6.4-8.2)
[2017-04-17 23:00] LABS: ALKALINE PHOSPHATASE 91 U/L (45-117)
--- NOTE | 2017-04-17 23:03 | RADRPT ---
EXAM DATE/TIME: 04/17/2017 22:38 [facility] COMPARISON: CT THORAX W/O CONTRAST, October 24, 2016, 19:18. INDICATIONS : Abdominal pain. ORAL CONTRAST: No oral contrast ingested. RADIATION DOSE: 12.64 CTDIvol (mGy) MEDICAL HISTORY : Hernia, hiatal. Diabetes mellitus type 2. Carcinoma, lung. SURGICAL HISTORY : Cholecystectomy. Tubal ligation.Hip replacement. ENCOUNTER: Initial ACUITY: 1 day PAIN SCALE: 5/10 LOCATION: abdomen TECHNIQUE: Volumetric scanning of the abdomen and pelvis was performed. Using automated exposure control and ad justment of the mA and/or kV according to patient size, radiation dose was kept as low as reasonably achievable to obtain optimal diagnostic quality images. DICOM format image data is available electro nically for review and comparison. FINDINGS: LOWER LUNGS: Chronic consolidative changes in the left lung base. LIVER: Mild intrahepatic and moderate extrahepatic biliary ductal dilatation which appears more pronounced t mcconnell on prior study. The gallbladder is surgically absent. SPLEEN: Normal size without lesion. PANCREAS: Within normal limits. KIDNEYS: Normal in size and shape. There is no mass, stone, or hydronephrosis. ADRENAL GLANDS: Within normal limits. VASCULAR: There is no aortic aneurysm. BOWEL/MESENTERY: Distal colonic diverticula. No abnormal dilatation, wall thickening or focal inflammatory changes selma ntified. ABDOMINAL WALL: Within normal limits. RETROPERITONEUM: There is no lymphadenopathy. BLADDER: No wall thickening or mass. REPRODUCTIVE: Within normal limits. INGUINAL: There is no lymphadenopathy or hernia. MUSCULOSKELETAL: Previous pinning of the right hip. Degenerative changes in the spine. CONCLUSION: Intra-and extrahepatic biliary ductal dilatation which appears more prominent than previously. Jose Ivan MD on April 17, 2017 at 22:57 Board Certified Radiologist. This report was verified electronically.
[2017-04-17 23:09] LABS: BANDS 6 % (0-6); LYMPHOCYTES 11 % (9-44); MONOCYTES 14 % (0-8); NEUTROPHIL # MANUAL DIFF 3.8 TH/MM3 (1.8-7.7); POLYS (SEG NEUTROPHILS) 69 % (16-70)
[2017-04-17 23:36] VITALS: BP 117/61
== END 2017-04-17 23:47 | disposition home or self-care (01) ==
LOC: PHED 21:21
DX: R10.9 Unspecified abdominal pain (principal); I12.0 Hypertensive chronic kidney disease with stage 5 chronic kidney disease or end stage renal disease; E11.22 Type 2 diabetes mellitus with diabetic chronic kidney disease; R30.0 Dysuria; J44.9 Chronic obstructive pulmonary disease, unspecified; Z99.2 Dependence on renal dialysis
CPT/HCPCS: 74176; 80053; 81001; 85007; 85027; 99284

== ENCOUNTER 2017-07-09 09:33 | Inpatient (IN) | payer MEDICARE ==
[2017-07-09] VITALS (7 sets, daily range): BP systolic 98–129; BP diastolic 52–58; PULSE 75–97; RESP 17–22; TEMP 96.3–99.5; O2SAT 95–96
[~2017-07-09] VITALS: Ht 165.1 cm; Wt 70.1 kg
[~2017-07-09 09:33] MED LIST changes: +ASPI-516 CHEW; -CYPR4TAB PO; +DIAL800T3; -DOCU100C PO; +DOCU100C15 PO; +HUMIBIDDM PO; +PROM25TA10 PO; +SYMB160A INH; +TUMS500C CHEW; +VARE.5 PO; +VENTAER INH
[2017-07-09] MEDS ORDERED: ZOFR4TAB PO (10:04)
[2017-07-09] MEDS ORDERED: LIDO1CRE31 TOPICAL (10:04)
[2017-07-09] MEDS ORDERED: ALBUAER3 INH (10:04)
[2017-07-09 10:32] LABS: HEMATOCRIT 35.3 % (35.0-46.0); HEMOGLOBIN 11.6 GM/DL (11.6-15.3); MEAN CORPUSCULAR HEMOGLOBIN 30.5 PG (27.0-34.0); MEAN CORPUSCULAR HGB CONC 32.9 % (32.0-36.0); MEAN PLATELET VOLUME 7.1 FL (7.0-11.0); PLATELET COUNT 297 TH/MM3 (150-450); RED CELL DISTRIBUTION WIDTH 17.2 % (11.6-17.2); WHITE BLOOD COUNT 1.9 TH/MM3 (4.0-11.0)
[2017-07-09 10:45] LABS: ALBUMIN 3.1 GM/DL (3.4-5.0); ALKALINE PHOSPHATASE 101 U/L (45-117); ALT (GPT) 20 U/L (10-53); BICARBONATE 23.7 MEQ/L (21.0-32.0); BLOOD UREA NITROGEN 52 MG/DL (7-18); CALCIUM 9.5 MG/DL (8.5-10.1); CHLORIDE 103 MEQ/L (98-107); CREATININE 8.86 MG/DL (0.50-1.00); GLOMERULAR FILTRATION RATE 4 ML/MIN (>89); GLUCOSE,RANDOM 92 MG/DL (74-106); LIPASE 56 U/L (73-393); SODIUM (NA) 135 MEQ/L (136-145); TOTAL BILIRUBIN ADULT 0.9 MG/DL (0.2-1.0); TOTAL PROTEIN 8.3 GM/DL (6.4-8.2)
[2017-07-09 10:46] LABS: AST (GOT) 30 U/L (15-37)
--- NOTE | 2017-07-09 11:22 | RADRPT ---
EXAM DATE/TIME: 07/09/2017 10:51 [facility] COMPARISON: CT ABDOMEN & PELVIS W/O CONTRAST, April 17, 2017, 22:38. INDICATIONS : Abdominal pain, weakness ORAL CONTRAST: No oral contrast ingested. RADIATION DOSE: 6.37 CTDIvol (mGy) MEDICAL HISTORY : Cardiovascular disease. Hypertension. Chronic obstructive pulmonary disease.Emphysema, Hiatal hernia, Renal disease, Diabetes, Lung cancer SURGICAL HISTORY : Tubal ligation. Cholecystectomy. ENCOUNTER: Initial ACUITY: 3 days PAIN SCALE: 8/10 LOCATION: Abdomen TECHNIQUE: Volumetric scanning of the abdomen and pelvis was performed. Using automated exposure control and ad justment of the mA and/or kV according to patient size, radiation dose was kept as low as reasonably achievable to obtain optimal diagnostic quality images. DICOM format image data is available electro nically for review and comparison. FINDINGS: LOWER LUNGS: There is progressive consolidation in the left lower lobe with air bronchograms. LIVER: Homogeneous density without lesion. Clips in place prior cholecystectomy with persistent dilatation o f the intrahepatic bile ducts up to a maximal width of the common duct 2 cm. SPLEEN: Normal size without lesion. PANCREAS: Punctate calcifications in the pancreatic head. KIDNEYS: Normal in size and shape. There is no mass, stone, or hydronephrosis. ADRENAL GLANDS: Within normal limits. VASCULAR: There is no aortic aneurysm. BOWEL/MESENTERY: There is an 8-9 cm length of abnormal distal descending proximal sigmoid colon with bowel wall thicke marla and some mild inflammatory changes around this. Most likely this represents colitis.. ABDOMINAL WALL: Within normal limits. RETROPERITONEUM: There is no lymphadenopathy. BLADDER: No wall thickening or mass. REPRODUCTIVE: Within normal limits. INGUINAL: There is no lymphadenopathy or hernia. MUSCULOSKELETAL: Degenerative changes of the lumbar spine with internal fixation by sliding nail in the right femur. CONCLUSION: Abnormal colon along segment 8-9 cm distal descending colon proximal sigmoid colon with concentric jose angel wel wall thickening and some inflammatory changes in the pericolonic fat which suggests colitis. Otherwise stable abdomen with prior cholecystectomy and chronic dilatation of intrahepatic bile ducts. Punctate calcifications in the pancreatic head are unchanged. Progressive consolidation with air bronchograms in t he left lower lobe additionally appreciated Ish Dalton MD on July 09, 2017 at 11:11 Board Certified Radiologist. This report was verified electronically.
[2017-07-09 11:59] LABS: BANDS 12 % (0-6); BASOPHILS 7 % (0-2); LYMPHOCYTES 14 % (9-44); MONOCYTES 46 % (0-8); POLYS (SEG NEUTROPHILS) 6 % (16-70)
[2017-07-09 12:03] LABS: NEUTROPHIL # MANUAL DIFF 0.3 TH/MM3 (1.8-7.7)
[2017-07-09] MEDS ORDERED: PIPERACIL-TAZO 2.25 GM PREMIX 50 ML IV ONE (12:30)
[2017-07-09] MEDS ORDERED: HYDROmorphone HCL PF 2 MG/ML VIAL IV PUSH ONE (13:00)
--- NOTE | 2017-07-09 13:01 | PD ---
HPI Chief Complaint: Abdominal Pain Time Seen by Provider: 09:56 Travel History International Travel<30 days: No Contact w/Intl Traveler<30days: No Traveled to known affect area: No History of Present Illness HPI This is a 66-year-old female who presents to the emergency department with abdominal discomfort that has been going on for 1 week, constant, moderate severity, described as cramping with no associated fevers or chills. She denies any nausea or vomiting. She tried something for constipation because she has not had a bowel movement in 1 week she says, but it did not work. She is a dialysis patient in went to dialysis on Saturday but could not go to dialysis today because of her pain. She does have a history of chronic neutropenia and due to highly circulating ALLEN and receives Neupogen from oncology intermittently. PFSH Past Medical History Hx Anticoagulant Therapy: Yes Anxiety: Yes Depression: Yes Cancer: Yes (Lung, 2013, remission ) Cardiovascular Problems: Yes Chemotherapy: No Chest Pain: Yes COPD: Yes Coronary Artery Disease: Yes Diabetes: Yes (DIET CONTROLLED) Patient Takes Glucophage: No Diminished Hearing: No Endocrine: Yes Gastrointestinal Disorders: Yes (CONSTIPATION) GERD: Yes Genitourinary: Yes (RETENTION, BURNING) Hepatitis: Yes (PREVIOUS FOOD BORNE HEPATITIS INFECTION PER CAREGIVER) Hiatal Hernia: Yes Immune Disorder: No Implanted Vascular Access Dvce: Yes Musculoskeletal: Yes (OA) Neurologic: Yes (BRAIN ANEURSYM WITH CAPPED STENT NO MRI) Psychiatric: No Reproductive: No Respiratory: Yes (END STAGE EMPHYSEMA) Immunizations Current: Yes Myocardial Infarction: Yes ("minor"@51) Pneumonia: Yes Radiation Therapy: Yes Renal Failure: Yes Thyroid Disease: No Tetanus Vaccination: Unknown : 3 Para: 3 Past Surgical History Abdominal Surgery: Yes (cholecystectomy) AICD: No Body Medical Devices: brain stent capped Cardiac Surgery: Yes (cardiac cath) Cholecystectomy: Yes Ear Surgery: No Endocrine Surgery: No Eye Surgery: No Gynecologic Surgery: Yes (tubal ligation) Joint Replacement: Yes Neurologic Surgery: Yes (brain anuerysm with stent (capped)) Oral Surgery: No Pacemaker: No Thoracic Surgery: Yes (WEDGE RESECTION FOR SQUAMOUS CELL CARCINOMA) Other Surgery: Yes Social History Alcohol Use: No Tobacco Use: Yes Substance Use: No Allergies-Medications (Allergen,Severity, Reaction): Coded Allergies: morphine (Unverified Allergy, Severe, RASH, 07/09/17) ciprofloxacin (Unverified Adverse Reaction, Intermediate, NAUSEAS, 07/09/17 ) codeine (Unverified Adverse Reaction, Intermediate, Vertigo, 07/09/17) *MDRO Multi-Drug Resistant Organism (Verified Adverse Reaction, Unknown, ) 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, 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 Reported Meds & Prescriptions Reported Meds & Active Scripts Active Oxycodone (Oxycodone HCl) 10 Mg Tab 10 Mg PO Q6HR PRN Xanax (Alprazolam) 1 Mg Tab 1 Mg PO BID PRN Vitamin D3 (Cholecalciferol) 2,000 Unit Cap 2,000 Units PO DAILY Fluoxetine (Fluoxetine HCl) 20 Mg Tab 20 Mg PO DAILY Midodrine 10 Mg Tab 10 Mg PO TID Calcium Acetate (Calcium Acetate (Phosphate Bin) 667 Mg Cap 667 Mg PO TIDPC Famotidine 20 Mg Tab 20 Mg PO DAILY Docusate Sodium 100 Mg Cap 100 Mg PO BID PRN Spiriva Handihaler (Tiotropium Inh) 18 Mcg Cap 18 Mcg INH DAILY 30 Days 1 capsule = 18 mcg Gabapentin 100 Mg Cap 100 Mg PO TID Hospital Bed - Electric 1 Ea Ea 1 Ea .ROUTE DIRECTED Wheelchair (Device) 1 Mis Mis 1 Ea .ROUTE DIRECTED Commode 3-in-1 (Device) 1 Mis Mis 1 Ea .ROUTE DIRECTED Walker Rolling/GetGo (Device) 1 Mis Mis 1 Ea .ROUTE DIRECTED Reported Bupropion HCl ER 24 HR (Bupropion HCl) 150 Mg Tab 150 Mg PO DAILY Proair Hfa 8.5 GM Inh (Albuterol Sulfate) 90 Mcg/Act Aer 2 Puff INH Q4-6H PRN 108 mcg/actuation Lidopril Topical (Lidocaine-Prilocaine Topical) 2.5-2.5 % Cream 1 Applic TOPICAL BID PRN Zofran (Ondansetron HCl) 4 Mg Tab 4 Mg PO Q6HR PRN Phenergan (Promethazine HCl) 25 Mg Tablet 25 Mg PO Q6H PRN Chantix (Varenicline) 0.5 Mg Tab 0.5 Mg PO DAILY Days 1-3 Dialyvite 800 (B-Complex W/ C & Folic Acid) 1 Tab Ventolin Hfa 18 GM Inh (Albuterol Sulfate) 90 Mcg/Act Aer 2 Puff INH Q4-6H PRN Tums (Calcium Carbonate (Antacid)) 500 Mg Chew 500 Mg CHEW PRN Symbicort Inh (Budesonide/Formoterol Fumarate) 160-4.5 Mcg/Act Aero 2 Puff INH Q12HR Mucinex DM (Dextromethorphan-Guaifenesin) 30-600 Mg Tab 2 Tab PO BID PRN Aspirin 81 Mg Chew 81 Mg CHEW DAILY Oxygen tank (Oxygen) 1 Ea Tank 2 Liter EDUARDO.CANULA HS Oxygen Concentrator Portable Gaseous 2 L/min via Nasal Cannula Continuous For 99 months Review of Systems Except as stated in HPI: all other systems reviewed are Neg Physical Exam Narrative GENERAL:Well appearing, no acute distress SKIN: Focused skin assessment warm and dry. HEAD: Atraumatic. Normocephalic. EYES: Pupils equal and round. No injection or drainage. ENT: Moist mucous membranes NECK: Trachea midline. CARDIOVASCULAR: Regular rate and rhythm. No murmur appreciated. RESPIRATORY: Rales in the bilateral lung bases. Breath sounds equal bilaterally. GASTROINTESTINAL: Abdomen soft, tender to palpation in the lower abdomen with no rebound or guarding. MUSCULOSKELETAL: No obvious deformities. NEUROLOGICAL: Awake and alert. No obvious cranial nerve deficits. Moving all extremities PSYCHIATRIC: Appropriate mood and affect; insight and judgment normal. Data Data Last Documented VS Vital Signs Date Time Temp Pulse Resp B/P (MAP) Pulse Ox O2 Delivery O2 Flow Rate FiO2 07/09/17 09:54 19 07/09/17 09:54 99.0 81 103/52 (69) 96 Room Air Orders Orders Complete Blood Count With Diff (07/09/17 10:03) Comprehensive Metabolic Panel (07/09/17 10:03) Lipase (07/09/17 10:03) Ct Abd/Pel W/O Iv Contrast (07/09/17 ) ^ Insert Iv (07/09/17 10:05) Oxycodone (Roxicodone) (07/09/17 12:00) Blood Culture (07/09/17 12:29) Lactic Acid (07/09/17 12:29) Piperacil-Tazo 2.25 Gm Premix (Zosyn 2.2 (07/09/17 12:30) Admit Order (Ed Use Only) (07/09/17 12:47) Labs Laboratory Tests Test 07/09/17 10:15 White Blood Count 1.9 TH/MM3 Red Blood Count 3.80 MIL/MM3 Hemoglobin 11.6 GM/DL Hematocrit 35.3 % Mean Corpuscular Volume 93.0 FL Mean Corpuscular Hemoglobin 30.5 PG Mean Corpuscular Hemoglobin Concent 32.9 % Red Cell Distribution Width 17.2 % Platelet Count 297 TH/MM3 Mean Platelet Volume 7.1 FL CBC Comment AUTO DIFF Differential Total Cells Counted 100 Neutrophils % (Manual) 6 % Band Neutrophils % 12 % Lymphocytes % 14 % Monocytes % 46 % Eosinophils % 15 % Basophils % 7 % Neutrophils # (Manual) 0.3 TH/MM3 Differential Comment FINAL DIFF MANUAL Platelet Estimate NORMAL Platelet Morphology Comment NORMAL Red Cell Morphology Comment NORMAL Blood Urea Nitrogen 52 MG/DL Creatinine 8.86 MG/DL Random Glucose 92 MG/DL Total Protein 8.3 GM/DL Albumin 3.1 GM/DL Calcium Level 9.5 MG/DL Alkaline Phosphatase 101 U/L Aspartate Amino Transf (AST/SGOT) 30 U/L Alanine Aminotransferase (ALT/SGPT) 20 U/L Total Bilirubin 0.9 MG/DL Sodium Level 135 MEQ/L Potassium Level 5.6 MEQ/L Chloride Level 103 MEQ/L Carbon Dioxide Level 23.7 MEQ/L Anion Gap 8 MEQ/L Estimat Glomerular Filtration Rate 4 ML/MIN Lipase 56 U/L [facility] Medical Decision Making Medical Screen Exam Complete: Yes Emergency Medical Condition: Yes Interpretation(s) Temperature is 99.0 White blood cell count is 1.9 ANC is 342 Potassium was 5.6, slight hemolysis BUN 52 Differential Diagnosis Diverticulitis, colitis, constipation, bowel obstruction, gastritis, gastroenteritis Narrative Course This is a 66-year-old female who has a history of end-stage renal disease and chronic neutropenia who presents to the emergency department with abdominal discomfort. She was placed on a monitor and IV was established. Labs were obtained which demonstrated an ANC of 342. CT abdomen and pelvis demonstrates colitis which is likely the source of her pain. Patient will be placed on IV antibiotics and admitted for colitis in the setting of neutropenia. She will likely require dialysis as she missed dialysis today. Physician Communication Physician Communication Discussed with Dr. Watkins Diagnosis Primary Impression: Colitis Admitting Information Admitting Physician Requests: Admit Nathalia Dunn MD Jul 09, 2017 13:01
[2017-07-09] MEDS ORDERED: DOCUSATE SODIUM 100 MG CAP PO PRN (13:45)
[2017-07-09] MEDS ORDERED: PROMETHAZINE HCL 25 MG TAB PO PRN (13:45)
[2017-07-09] MEDS ORDERED: LIDOCAINE-PRILOCAIN 2.5% CREAM 5 GM TUBE TOPICAL PRN (13:45)
[2017-07-09] MEDS ORDERED: ACETAMINOPHEN 325 MG TAB PO PRN ×2 (14:00→15:00)
[2017-07-09] MEDS ORDERED: BISACODYL 10 MG SUPP RECTAL PRN (14:00)
[2017-07-09] MEDS ORDERED: SODIUM CHLORIDE 0.9% FLUSH 10 ML FLUSH IV FLUSH PRN ×2 (14:00→15:00)
[2017-07-09] MEDS ORDERED: cloNIDine HCL 0.1 MG TAB PO PRN ×2 (14:00→15:00)
[2017-07-09] MEDS ORDERED: ONDANSETRON HCL 4 MG/2 ML VIAL IVP PRN (14:00)
[2017-07-09] MEDS ORDERED: LACTULOSE SYRUP 20 GM/30 ML CUP PO PRN (14:00)
[2017-07-09] MEDS ORDERED: MAGNESIUM HYDROXIDE SUSP 30 ML CUP PO PRN (14:00)
[2017-07-09] MEDS ORDERED: NALOXONE HCL 0.4 MG/ML AMP IV PUSH PRN (14:00)
[2017-07-09] MEDS ORDERED: SENNOSIDES 8.6 MG TAB PO PRN (14:00)
[2017-07-09] MEDS ORDERED: BUPR150T3 PO (14:26)
[2017-07-09] MEDS: HEPARIN SODIUM - SQ 10,000 UNITS/ML VIAL SQ SCH (14:45)
[2017-07-09] MEDS ORDERED: SODIUM CHLOR 0.9% 1000 ML INJ 1,000 ML OTHER PRN ×2 (14:52)
[2017-07-09] MEDS ORDERED: SODIUM CHLOR 0.9% 1000 ML INJ 1,000 ML IV PRN (14:52)
[2017-07-09] MEDS ORDERED: HEPARIN SODIUM - IV 10,000 UNITS/10 ML VIAL IV FLUSH PRN (15:00)
[2017-07-09] MEDS ORDERED: ALBUMIN 25% INJ 100 ML IV PRN (15:00)
[2017-07-09] MEDS ORDERED: diphenhydrAMINE HCL 25 MG CAP PO PRN (15:00)
[2017-07-09] MEDS ORDERED: NITROGLYCERIN 0.4 MG SL 25 TABS/BTL SL PRN (15:00)
[2017-07-09] MEDS ORDERED: ONDANSETRON HCL 4 MG/2 ML VIAL IV PUSH PRN (15:00)
[2017-07-09] MEDS ORDERED: MANNITOL 12.5 GM/50 ML VIAL IV PRN (15:00)
[2017-07-09] MEDS ORDERED: HEPARIN SODIUM - IV 10,000 UNITS/10 ML VIAL PRN (15:00)
[2017-07-09] MEDS ORDERED: GENTAMICIN SULFATE (DIALYSIS USE ONLY) 20 MG/2 ML VIAL OTHER PRN (15:00)
--- NOTE | 2017-07-09 15:03 | PD.CONS ---
HPI Service Nephrology Consult Requested By Reason for Consult ESRD Primary Care Physician Alli Watkins MD History of Present Illness Patient is a 66 year old ESRD HTN, Abdominal pain, she missed her dialysis today and return to the ER complaining of lower abdominal pain CT scan showed evidence of colitis she has been admitted, she has lung cancer continues to smoke and has COPD, she was treated possible UTI and upper respiratory tract infection. Review of Systems Constitutional: COMPLAINS OF: Fatigue Respiratory: COMPLAINS OF: Apneas, Cough, Wheezing, Shortness of breath Gastrointestinal: COMPLAINS OF: Abdominal pain, Anorexia Neurologic: COMPLAINS OF: Abnormal gait Psychiatric: COMPLAINS OF: Anxiety Past Family Social History Allergies: Coded Allergies: morphine (Verified Allergy, Severe, RASH, 07/09/17) ciprofloxacin (Verified Adverse Reaction, Intermediate, NAUSEAS, 07/09/17) codeine (Verified Adverse Reaction, Intermediate, Vertigo, 07/09/17) Past Medical History Anxiety Depression Lung cancer 2012 currently in remission Peripheral vascular disease COPD Diabetes diet controlled Constipation Chronic opiates GERD Urinary retention with burning/UTI Foodborne hepatitis infection Renal failure End-stage renal disease currently on dialysis End-stage emphysema/COPD Brain aneurysm Osteoarthritis Past Surgical History Cholecystectomy 30 tubal ligation Brain aneurysm stent with cap. 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 Tubal ligation Dialysis access Reported Medications Reported Meds & Active Scripts Active Oxycodone (Oxycodone HCl) 10 Mg Tab 10 Mg PO Q6HR PRN Xanax (Alprazolam) 1 Mg Tab 1 Mg PO BID PRN Vitamin D3 (Cholecalciferol) 2,000 Unit Cap 2,000 Units PO DAILY Fluoxetine (Fluoxetine HCl) 20 Mg Tab 20 Mg PO DAILY Midodrine 10 Mg Tab 10 Mg PO TID Calcium Acetate (Calcium Acetate (Phosphate Bin) 667 Mg Cap 667 Mg PO TIDPC Famotidine 20 Mg Tab 20 Mg PO DAILY Docusate Sodium 100 Mg Cap 100 Mg PO BID PRN Spiriva Handihaler (Tiotropium Inh) 18 Mcg Cap 18 Mcg INH DAILY 30 Days 1 capsule = 18 mcg Gabapentin 100 Mg Cap 100 Mg PO TID Hospital Bed - Electric 1 Ea Ea 1 Ea .ROUTE DIRECTED Wheelchair (Device) 1 Mis Mis 1 Ea .ROUTE DIRECTED Commode 3-in-1 (Device) 1 Mis Mis 1 Ea .ROUTE DIRECTED Walker Rolling/GetGo (Device) 1 Mis Mis 1 Ea .ROUTE DIRECTED Reported Bupropion HCl ER 24 HR (Bupropion HCl) 150 Mg Tab 150 Mg PO DAILY Proair Hfa 8.5 GM Inh (Albuterol Sulfate) 90 Mcg/Act Aer 2 Puff INH Q4-6H PRN 108 mcg/actuation Lidopril Topical (Lidocaine-Prilocaine Topical) 2.5-2.5 % Cream 1 Applic TOPICAL BID PRN Zofran (Ondansetron HCl) 4 Mg Tab 4 Mg PO Q6HR PRN Phenergan (Promethazine HCl) 25 Mg Tablet 25 Mg PO Q6H PRN Chantix (Varenicline) 0.5 Mg Tab 0.5 Mg PO DAILY Days 1-3 Dialyvite 800 (B-Complex W/ C & Folic Acid) 1 Tab Ventolin Hfa 18 GM Inh (Albuterol Sulfate) 90 Mcg/Act Aer 2 Puff INH Q4-6H PRN Tums (Calcium Carbonate (Antacid)) 500 Mg Chew 500 Mg CHEW PRN Symbicort Inh (Budesonide/Formoterol Fumarate) 160-4.5 Mcg/Act Aero 2 Puff INH Q12HR Mucinex DM (Dextromethorphan-Guaifenesin) 30-600 Mg Tab 2 Tab PO BID PRN Aspirin 81 Mg Chew 81 Mg CHEW DAILY Oxygen tank (Oxygen) 1 Ea Tank 2 Liter EDUARDO.CANULA HS Oxygen Concentrator Portable Gaseous 2 L/min via Nasal Cannula Continuous For 99 months Active Ordered Medications Current Medications Medications (Trade) Dose Ordered Sig/Carlos Route Start Time Stop Time Status Last Admin (Aspirin Chew) 81 mg DAILY CHEW 07/10/17 09:00 07/10/17 08:24 (Symbicort 160-4.5 Mcg Inh) 2 puff Q12HR INH 07/09/17 21:00 07/10/17 08:25 (Phoslo) 667 mg TIDPC PO 07/09/17 18:30 07/10/17 08:23 (Colace) 100 mg BID PRN PO 07/09/17 13:45 (PROzac) 20 mg DAILY PO 07/10/17 09:00 07/10/17 08:23 (Neurontin) 100 mg TID PO 07/09/17 18:00 07/10/17 08:23 (Emla Cream) 1 applic BID PRN TOPICAL 07/09/17 13:45 (Proamatine) 10 mg TID PO 07/09/17 18:00 07/10/17 08:23 (Phenergan) 25 mg Q6H PRN PO 07/09/17 13:45 (NS Flush) 2 ml UNSCH PRN IV FLUSH 07/09/17 14:00 (NS Flush) 2 ml BID IV FLUSH 07/09/17 21:00 07/10/17 08:25 (Zofran Inj) 4 mg Q6H PRN IVP 07/09/17 14:00 07/09/17 19:46 (Heparin Inj) 5,000 units Q12H SQ 07/09/17 14:00 07/10/17 02:52 (Narcan Inj) 0.4 mg UNSCH PRN IV PUSH 07/09/17 14:00 (Marixa-Colace) 1 tab BID PO 07/09/17 21:00 07/10/17 08:23 (Milk Of Magnesia Liq) 30 ml Q12H PRN PO 07/09/17 14:00 (Senokot) 17.2 mg Q12H PRN PO 07/09/17 14:00 (Dulcolax Supp) 10 mg DAILY PRN RECTAL 07/09/17 14:00 (Lactulose Liq) 30 ml DAILY PRN PO 07/09/17 14:00 (Catapres) 0.1 mg Q6H PRN PO 07/09/17 14:00 Metronidazole 100 ml @ 100 mls/hr Q12H IV 07/09/17 21:00 07/10/17 08:24 Sodium Chloride 1,000 ml @ 0 mls/hr Q0M PRN OTHER 07/09/17 14:52 (Heparin Inj) 8,000 units UNSCH PRN IV FLUSH 07/09/17 15:00 Sodium Chloride 1,000 ml @ 200 mls/hr Q5H PRN IV 07/09/17 14:52 Sodium Chloride 1,000 ml @ 0 mls/hr Q0M PRN OTHER 07/09/17 14:52 (Mannitol Inj) 12.5 gm UNSCH PRN IV 07/09/17 15:00 07/09/17 17:45 Albumin Human 100 ml @ 60 mls/hr UNSCH PRN IV 07/09/17 15:00 07/09/17 17:46 (NS Flush) 5 ml UNSCH PRN IV FLUSH 07/09/17 15:00 (Heparin Inj) UNSCH PRN .XX 07/09/17 15:00 (Gentamicin (Dialysis) Inj) 20 mg UNSCH PRN OTHER 07/09/17 15:00 (Zofran Inj) 4 mg UNSCH PRN IV PUSH 07/09/17 15:00 (Tylenol) 650 mg UNSCH PRN PO 07/09/17 15:00 (Benadryl) 25 mg UNSCH PRN PO 07/09/17 15:00 (Nitrostat Sl) 0.4 mg UNSCH PRN SL 07/09/17 15:00 (Catapres) 0.1 mg UNSCH PRN PO 07/09/17 15:00 (Epogen Inj) 4,000 units UNSCH PRN IV PUSH 07/09/17 15:00 07/09/17 17:45 (Gelfoam 12 Mm/7 Mm Top) 1 foam UNSCH PRN TOP 07/09/17 15:00 07/09/17 17:45 (Protonix) 40 mg Q12HR PO 07/09/17 21:00 07/10/17 08:23 (Colyte Liq) 4,000 ml ONCE ONCE PO 07/10/17 14:00 07/10/17 14:01 (Dilaudid Pf Inj) 0.5 mg Q6H PRN IV PUSH 07/09/17 20:45 07/10/17 08:26 (Habitrol 21 Mg Patch.24 Hr) 1 patch DAILY T-DERMAL 07/10/17 09:00 07/10/17 08:25 Miscellaneous Information 1 HS T-DERMAL 07/09/17 21:00 07/10/17 08:25 (Xanax) 1 mg BID PRN PO 07/09/17 20:45 07/09/17 20:53 Levofloxacin/ Dextrose 50 ml @ 50 mls/hr Q48H IV 07/11/17 21:00 (Duoneb Neb) 1 ampule QID NEB NEB 07/10/17 12:00 Family History noncontributory Social History Smoking actively, denies alcohol intake Physical Exam Vital Signs Vital Signs Date Time Temp Pulse Resp B/P (MAP) Pulse Ox O2 Delivery O2 Flow Rate FiO2 07/09/17 14:36 75 17 98/53 (68) 96 Room Air 07/09/17 09:54 19 07/09/17 09:54 99.0 81 19 103/52 (69) 96 Room Air 07/09/17 09:48 99.0 81 19 103/52 (69) 95 Physical Exam GENERAL: Well-nourished, well-developed patient. SKIN: Warm and dry. HEAD: Normocephalic. EYES: No scleral icterus. No injection or drainage. NECK: Supple, trachea midline. No JVD or lymphadenopathy. CARDIOVASCULAR: Regular rate and rhythm without murmurs, gallops, or rubs. RESPIRATORY: Breath sounds diminished at bases bilateral rhonchi GASTROINTESTINAL: Abdomen soft, tenderness in lower abdomen EXTREMITIES: No cyanosis, or edema. NEUROLOGICAL: Awake, alert, and oriented x 3. Non-focal. Laboratory Laboratory Tests Test 07/09/17 10:15 07/09/17 13:10 White Blood Count 1.9 Red Blood Count 3.80 Hemoglobin 11.6 Hematocrit 35.3 Mean Corpuscular Volume 93.0 Mean Corpuscular Hemoglobin 30.5 Mean Corpuscular Hemoglobin Concent 32.9 Red Cell Distribution Width 17.2 Platelet Count 297 Mean Platelet Volume 7.1 CBC Comment AUTO DIFF Differential Total Cells Counted 100 Neutrophils % (Manual) 6 Band Neutrophils % 12 Lymphocytes % 14 Monocytes % 46 Eosinophils % 15 Basophils % 7 Neutrophils # (Manual) 0.3 Differential Comment FINAL DIFF MANUAL Platelet Estimate NORMAL Platelet Morphology Comment NORMAL Red Cell Morphology Comment NORMAL Blood Urea Nitrogen 52 Creatinine 8.86 Random Glucose 92 Total Protein 8.3 Albumin 3.1 Calcium Level 9.5 Alkaline Phosphatase 101 Aspartate Amino Transf (AST/SGOT) 30 Alanine Aminotransferase (ALT/SGPT) 20 Total Bilirubin 0.9 Sodium Level 135 Potassium Level 5.6 Chloride Level 103 Carbon Dioxide Level 23.7 Anion Gap 8 Estimat Glomerular Filtration Rate 4 Lipase 56 Lactic Acid Level 0.7 Date/Time Source Procedure Growth Status 07/09/17 13:10 Blood Peripheral Aerobic Blood Culture Pending Received 07/09/17 13:10 Blood Peripheral Anaerobic Blood Culture Pending Received Result Diagram: 07/09/17 1015 07/09/17 1015 Imaging Last Impressions Abdomen/Pelvis CT 07/09/17 0000 Signed Impressions: Service Date/Time: Sunday, July 09, 2017 10:51 - CONCLUSION: Abnormal colon along segment 8-9 cm distal descending colon proximal sigmoid colon with concentric bowel wall thickening and some inflammatory changes in the pericolonic fat which suggests colitis. Otherwise stable abdomen with prior cholecystectomy and chronic dilatation of intrahepatic bile ducts. Punctate calcifications in the pancreatic head are unchanged. Progressive consolidation with air bronchograms in the left lower lobe additionally appreciated Ish Dalton MD Assessment and Plan Problem List: (1) ESRD (end stage renal disease) ICD Codes: N18.6 - End stage renal disease Status: Chronic Plan: Patient is seen during hemodialysis tolerating it well continue supportive care Monitor She has colitis and has been admitted for treatment (2) Colitis ICD Codes: K52.9 - Noninfective gastroenteritis and colitis, unspecified Status: Acute Plan: Patient is being treated studies pending (3) Dementia ICD Codes: F03.90 - Unspecified dementia without behavioral disturbance Status: Acute Plan: Per daughter she is concerned she is forgetful (4) COPD (chronic obstructive pulmonary disease) ICD Codes: J44.9 - Chronic obstructive pulmonary disease, unspecified Status: Chronic Plan: Continue supportive care (5) Neutropenia ICD Codes: D70.9 - Neutropenia, unspecified Status: Chronic Plan: Patient has autoimmune neutropenia and gets Neupogen Oscar Jurado MD Jul 09, 2017 15:03
[2017-07-09] MEDS: RESP: ALBUTEROL 2.5 MG/IPRATROPIUM 0.5 MG NEB (SCH) NEB ×2 (15:30→20:00)
--- NOTE | 2017-07-09 16:51 | PD.CONS ---
HPI History of Present Illness This is a 66 year old female who came into the hospital on 07/09/17 with generalized weakness and malaise and lower abdominal cramping and pain. Patient states no bowel movement for 5 days or greater, takes chronic narcotics daily which could be part of the culprit. Patient has chronic end-stage renal disease and is currently receiving a dialysis treatment now because she did not feel like going this morning, patient also has chronic leukopenia WBC count 1.9. Chronic anemia probable secondary to her renal disease stable at 11.6, patient does note some dysphasia some nausea and some heartburn symptoms but no vomiting. Patient had colonoscopy 2-1/2 years ago in the [place] area but states she doesn't remember any results. No known history of diverticulosis or polyps. CT of abdomen and pelvis shows descending sigmoid colon colitis, patient denies any symptoms of diarrhea. (Sushma Vazquez) PFSH Past Medical History Anxiety Depression Lung cancer 2012 currently in remission vascular disease COPD Diabetes diet controlled Constipation Chronic opiates GERD Urinary retention with burning/UTI Foodborne hepatitis infection Ammonia Renal failure End-stage renal disease currently on dialysis End-stage emphysema/COPD Brain aneurysm Osteoarthritis Past Surgical History Cholecystectomy 30 tubal ligation Brain aneurysm stent with cap. Wedge resection for squamous cell carcinoma Tubal ligation Dialysis access (Sushma Vazquez) Coded Allergies: morphine (Verified Allergy, Severe, RASH, 07/09/17) ciprofloxacin (Verified Adverse Reaction, Intermediate, NAUSEAS, 07/09/17) codeine (Verified Adverse Reaction, Intermediate, Vertigo, 07/09/17) *MDRO Multi-Drug Resistant Organism (Verified Adverse Reaction, Unknown, ) 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, 12/27/16 Medications Administered Medications Medications (Trade) Dose Ordered Sig/Carlos Route PRN Reason Start Time Stop Time Status Last Admin Dose Admin Heparin Sodium (Porcine) (Heparin Inj) 5,000 units Q12H SQ 07/09/17 14:00 07/09/17 14:45 Social History Tobacco use No alcohol no illicit drugs (Sushma Vazquez) Review of Systems Constitutional: COMPLAINS OF: Fatigue (Sushma Vazquez) GI Exam Vitals I&O Vital Signs Date Time Temp Pulse Resp B/P (MAP) Pulse Ox O2 Delivery O2 Flow Rate FiO2 07/09/17 14:36 75 17 98/53 (68) 96 Room Air 07/09/17 09:54 19 07/09/17 09:54 99.0 81 19 103/52 (69) 96 Room Air 07/09/17 09:48 99.0 81 19 103/52 (69) 95 I/O 07/08/17 07/08/17 07/08/17 07/09/17 07/09/17 07/09/17 07:00 15:00 23:00 07:00 15:00 23:00 Intake Total 50 ml Balance 50 ml Intake IV Total 50 ml Imaging Last Impressions Abdomen/Pelvis CT 07/09/17 0000 Signed Impressions: Service Date/Time: Sunday, July 09, 2017 10:51 - CONCLUSION: Abnormal colon along segment 8-9 cm distal descending colon proximal sigmoid colon with concentric bowel wall thickening and some inflammatory changes in the pericolonic fat which suggests colitis. Otherwise stable abdomen with prior cholecystectomy and chronic dilatation of intrahepatic bile ducts. Punctate calcifications in the pancreatic head are unchanged. Progressive consolidation with air bronchograms in the left lower lobe additionally appreciated Ish Dalton MD Laboratory Test 07/09/17 10:15 07/09/17 13:10 White Blood Count 1.9 TH/MM3 Red Blood Count 3.80 MIL/MM3 Hemoglobin 11.6 GM/DL Hematocrit 35.3 % Mean Corpuscular Volume 93.0 FL Mean Corpuscular Hemoglobin 30.5 PG Mean Corpuscular Hemoglobin Concent 32.9 % Red Cell Distribution Width 17.2 % Platelet Count 297 TH/MM3 Mean Platelet Volume 7.1 FL CBC Comment AUTO DIFF Differential Total Cells Counted 100 Neutrophils % (Manual) 6 % Band Neutrophils % 12 % Lymphocytes % 14 % Monocytes % 46 % Eosinophils % 15 % Basophils % 7 % Neutrophils # (Manual) 0.3 TH/MM3 Differential Comment FINAL DIFF MANUAL Platelet Estimate NORMAL Platelet Morphology Comment NORMAL Red Cell Morphology Comment NORMAL Blood Urea Nitrogen 52 MG/DL Creatinine 8.86 MG/DL Random Glucose 92 MG/DL Total Protein 8.3 GM/DL Albumin 3.1 GM/DL Calcium Level 9.5 MG/DL Alkaline Phosphatase 101 U/L Aspartate Amino Transf (AST/SGOT) 30 U/L Alanine Aminotransferase (ALT/SGPT) 20 U/L Total Bilirubin 0.9 MG/DL Sodium Level 135 MEQ/L Potassium Level 5.6 MEQ/L Chloride Level 103 MEQ/L Carbon Dioxide Level 23.7 MEQ/L Anion Gap 8 MEQ/L Estimat Glomerular Filtration Rate 4 ML/MIN Lipase 56 U/L Lactic Acid Level 0.7 mmol/L Date/Time Source Procedure Growth Status 07/09/17 13:10 Blood Peripheral Aerobic Blood Culture Pending Received 07/09/17 13:10 Blood Peripheral Anaerobic Blood Culture Pending Received Physical Examination HEENT: Pupils round and reactive to light; normocephalic; atraumatic; no jaundice. NECK: Neck is supple, no JVD, no lymphadenopathy. CHEST: Chest is clear CARDIAC: Regular rate and rhythm with no murmur gallop or rubs. ABDOMEN: Taut and mild bloating, nontender; bowel sounds soft EXTREMITIES: No clubbing, cyanosis, or edema. SKIN: Normal; no rash; no jaundice pale. TANBARK PEELER: No focal deficits; alert and oriented times two (Sushma Vazquez) Assessment and Plan Assessment: (1) Colitis ICD Codes: K52.9 - Noninfective gastroenteritis and colitis, unspecified (2) Constipation due to opioid therapy ICD Codes: K59.03 - Drug induced constipation; T40.2X5A - Adverse effect of other opioids, initial encounter (3) ESRD (end stage renal disease) ICD Codes: N18.6 - End stage renal disease Status: Chronic (4) Chronic kidney disease ICD Codes: N18.9 - Chronic kidney disease, unspecified Status: Chronic Plan Constipation probable secondary to her daily opioid use. Has been 5 days or greater since bowel movement. In patients currently starting on dialysis which will not and early evening. Plan mag citrate dose this p.m. around 7:00 or after patient's finished with dialysis. Will work towards bowel movements over the next 24 hours She having symptoms of nausea and heartburn with some dysphasia Plan Plan EGD colonoscopy for thirsty on 07/11/17 Shay cintron Consents to sign Nothing by mouth at midnight on 07/11/17 Patient can have her baby aspirin but no other anticoagulants except for what is involved with her renal (Sushma Vazquez) Physician Comments Patient seen and examined Agree with above Continue with current supportive care Monitor labs (Jarvis Arias MD) Sushma Vazquez Jul 09, 2017 16:51 Jarvis Arias MD Jul 10, 2017 00:49
[2017-07-09] MEDS ORDERED: CIPROFLOXACIN 200 MG PREMIX 100 ML IV SCH (17:00)
[2017-07-09] MEDS: GELATIN 12 MM/7 MM FOAM TOP PRN (17:45)
[2017-07-09] MEDS: EPOETIN ALFA 10,000 UNITS/ML VIAL IV PUSH PRN (17:45)
[2017-07-09] MEDS: MIDODRINE 5 MG TAB PO SCH (18:57)
[2017-07-09] MEDS: CALCIUM ACETATE 667 MG CAP PO SCH (18:57)
[2017-07-09] MEDS: GABAPENTIN 100 MG CAP PO SCH (18:57)
[2017-07-09] MEDS ORDERED: MAGNESIUM CITRATE SOLN 300 ML BTL PO ONE (19:00)
[2017-07-09] MEDS: metroNIDAZOLE 500 MG INJ 100 ML IV SCH (19:45)
[2017-07-09] MEDS: DOCUSATE SODIUM 50 MG/SENNA 8.6 MG TAB PO SCH (19:45)
[2017-07-09] MEDS: PANTOPRAZOLE SOD 40 MG DELAYED RELEASE TAB PO SCH (19:45)
[2017-07-09] MEDS: SODIUM CHLORIDE 0.9% FLUSH 10 ML FLUSH IV FLUSH SCH (19:46)
[2017-07-09] MEDS ORDERED: LEVOFLOXACIN 500 MG PREMIX INJ 100 ML IV SCH (20:00)
[2017-07-09] MEDS ORDERED: ALPRAZolam 1 MG TAB PO PRN (20:45)
[2017-07-09] MEDS: HYDROmorphone HCL PF 2 MG/ML VIAL IV PUSH PRN (20:55)
[2017-07-09] MEDS: BUDESONIDE-FORMOTEROL 160/4.5 MCG INHALER INH SCH (21:00)
[2017-07-09] MEDS: REMOVE OLD NICODERM (NICOTINE) PATCH T-DERMAL SCH (21:00)
[2017-07-09] MEDS ORDERED: NICOTINE 21 MG/24 HR PATCH T-DERMAL ONE (21:00)
[2017-07-10] VITALS (8 sets, daily range): BP systolic 96–119; BP diastolic 50–73; PULSE 69–82; RESP 15–20; TEMP 95.4–99.8; O2SAT 93–100
[2017-07-10] MEDS: HEPARIN SODIUM - SQ 10,000 UNITS/ML VIAL SQ SCH ×3 (02:52→23:04)
[2017-07-10] MEDS: HYDROmorphone HCL PF 2 MG/ML VIAL IV PUSH PRN ×3 (02:53→18:05)
[2017-07-10] MEDS ORDERED: FILGRASTIM 480 MCG/1.6 ML VIAL SQ ONE (07:30)
[2017-07-10] MEDS: ASPIRIN 81 MG CHEW TAB CHEW SCH ×2 (07:48→08:24)
[2017-07-10] MEDS: MIDODRINE 5 MG TAB PO SCH ×3 (08:23→18:05)
[2017-07-10] MEDS: GABAPENTIN 100 MG CAP PO SCH ×3 (08:23→18:05)
[2017-07-10] MEDS: FLUoxetine HCL 20 MG CAP PO SCH (08:23)
[2017-07-10] MEDS: CALCIUM ACETATE 667 MG CAP PO SCH ×3 (08:23→18:05)
[2017-07-10] MEDS: PANTOPRAZOLE SOD 40 MG DELAYED RELEASE TAB PO SCH ×2 (08:23→21:21)
[2017-07-10] MEDS: DOCUSATE SODIUM 50 MG/SENNA 8.6 MG TAB PO SCH ×2 (08:23→21:21)
[2017-07-10] MEDS: metroNIDAZOLE 500 MG INJ 100 ML IV SCH ×2 (08:24→21:00)
[2017-07-10] MEDS: REMOVE OLD NICODERM (NICOTINE) PATCH T-DERMAL SCH (08:25)
[2017-07-10] MEDS: SODIUM CHLORIDE 0.9% FLUSH 10 ML FLUSH IV FLUSH SCH ×2 (08:25→21:22)
[2017-07-10] MEDS: BUDESONIDE-FORMOTEROL 160/4.5 MCG INHALER INH SCH ×2 (08:25→21:25)
[2017-07-10] MEDS: NICOTINE 21 MG/24 HR PATCH T-DERMAL SCH (08:25)
--- NOTE | 2017-07-10 08:33 | MB ---
cc: TONYA MCMANUS MD, ZAFAR MD DATE OF CONSULTATION 07/10/2017 DATE OF 1950 [address] Mcmanus who is also the patient's primary care physician. 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 CHIEF COMPLAINT Miss Hylton reports abdominal cramps, abdominal pain and constipation for the past seven days. HISTORY OF PRESENT ILLNESS Ms. Hylton is a 66-year-old female who is well-known to me from previous outpatient visits, as well as inpatient consultations. Ms. Hylton relocated from [place] to the [facility] to be closer to her daughter about two years ago. She established Hematology/Oncology follow up care shortly after relocating. 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 Ms. Hylton was last seen by me about two weeks ago. She was treated with Neupogen injection at that time for neutropenia. Per Ms. Hylton, she developed constipation about a week ago. Her abdomen has been increasingly distended and painful. She describes the pain as more crampy in nature, it can crescendo to a high level very quickly and then oftentimes relieves spontaneously. She tells me she has not had any bowel movements for at least six days and her last bowel movement was hard and was associated with some blood when she wiped herself with the toilet paper. She presented to the emergency department yesterday with the above-noted complaints. A CT of the abdomen was performed and revealed inflammatory changes involving the colonic wall. CBC performed indicated an absolute neutrophil count of approximately 300. The hematology service has been asked to see her to optimize her neutropenia in light of the colitis based on diagnosis which is based on the above-noted radiographic findings. She is also on empiric antibiotic therapy. PAST MEDICAL HISTORY 1. Autoimmune neutropenia 2. End-stage renal failure 3. Personal history of tobaccoism. 4. COPD/emphysema 5. Anxiety and depression 6. Stage I squamous cell carcinoma of the lung. 7. Gastroesophageal reflux disease PAST SURGICAL HISTORY 1. Cholecystectomy 2. Tubal ligation 3. Wedge resection for lung carcinoma. 4. Bone marrow biopsy and aspiration. 5. AV fistula creation left upper extremity. 6. A previous history of Perma-Cath along the right chest wall. 7. ORIF of the right hip fracture. GYNECOLOGIC HISTORY 3, para 3. She is postmenopausal. FAMILY HISTORY Mother with a history of leukemia, father with hepatic cirrhosis. Brother had some form of cancer, but the patient is not certain what type. Sister similarly had some form of cancer, but the patient is not aware what type. SOCIAL HISTORY The patient is , she now lives at home with her daughter in the [facility]. The patient is originally from [place]. She was an active smoker up until about a year and half ago and prior to that she smoked about a pack a day for close to 45 years. ALLERGIES CIPROFLOXACIN AND CODEINE. CURRENT INPATIENT MEDICATIONS 1. Albumin 25% injections with dialysis as needed. 2. Levofloxacin 250 mg IV q.48 h. 3. Metronidazole 500 mg IV q.12 h. 4. she was treated with one dose OF Zosyn at 2.25 grams IV x1 on 07/09/2017. 5. Normal saline as needed with hemodialysis 6. DuoNeb one amp every 6 hours as needed for wheezing 7. Alprazolam 1 mg p.o. b.i.d. as needed for anxiety 8. Aspirin 81 mg once a day 9. Symbicort 2 puffs q.12 h as needed 10. PhosLo 667 mg p.o. t.i.d. 11. Clonidine 0.1 mg p.o. q. 6 hours as needed for blood pressure systolic over 116 and diastolic over 90. 12. Colace 100 mg p.o. b.i.d. 13. Senna Colace 1 tablet p.o. b.i.d. 14. Epogen injections 4000 units IV p.r.n. with dialysis 15. Neupogen 480 mcg subcu x1 16. Fluoxetine 200 mg p.o. daily 17. Gabapentin 100 mg p.o. three times a day 18. Heparin 5000 units subcu q.12 h. 19. Dilaudid 0.5 mg IV q.6 h as needed for pain 20. Lactulose 30 mL p.o. daily as needed for severe constipation. 21. Mannitol 2.5 grams IV as needed with dialysis. 22. Midodrine 10 mg p.o. t.i.d. 23. Nicotine patch 21 mg q. 24-hour patch 24. Zofran 4 mg IV with dialysis as needed 25. Pantoprazole 40 mcg q. q.12 h. REVIEW OF SYSTEMS A 13-point review of systems were obtained. The following are the pertinent positives and negatives: CONSTITUTIONAL: The patient reports fatigue, weakness. She reports her appetite had been fair up until about a week ago. HEENT: Denies headaches, blurry vision, difficulty swallowing or soreness in the throat. RESPIRATORY: Difficulty breathing with exertion, chronic cough. CARDIOVASCULAR: Denies angina-like chest pain, PND, orthopnea. GI: Denies nausea, vomiting, but does report abdominal pain, cramps and constipation, as well as blood per rectum when wiping. : No complaints. She makes minimal urine and is on hemodialysis. 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 No other complaints reported. PHYSICAL EXAMINATION VITAL SIGNS: Temperature 97.9 degrees Fahrenheit, heart rate 80 beats per minute, respiratory rate 20, blood pressure 101/52, O2 sats 100% on room air. GENERAL PHYSICAL APPEARANCE: Ms. Hylton is an elderly lady, she appears somewhat frail. She is laying in bed this morning. She is tearful during this interview. HEENT: Head is atraumatic, normocephalic, conjunctive are pale. Sclerae are anicteric, EOMI, PERRLA, oral exam, dry mucous membranes. No pharyngeal erythema. NECK: No palpable cervical or supraclavicular lymphadenopathy. RESPIRATORY: Good air movement bilaterally over the upper and middle lung zones with prolonged expiratory phase. CARDIOVASCULAR: Regular rate and rhythm, S1-S2. No obvious murmurs, rubs or gallops. ABDOMEN: Protuberant belly, soft, tender to palpation. Positive bowel sounds. The tenderness is most severe over the left lower quadrant and left abdomen in general as well. There is no definite organ enlargement. EXTREMITIES: Lower extremities, no pretibial edema. No calf tenderness. STRIPPER AND OPAQUER APPRENTICE: No focal, sensory or motor deficits noted. LABORATORY FINDINGS Blood work dated 07/09/2017: WBC count 1.9, hemoglobin 11.6 gm/dl, hematocrit 35.3%, platelet count 297. Absolute neutrophil count is 0.3. Chemistries: Sodium 135, potassium 5.6, chloride 103, bicarb 23.7, BUN is 52, creatinine is 8.86, glucose is 92, calcium 9.5, total bilirubin 0.9, AST 30, ALT 20, alkaline phosphatase 101, albumin is 3.1, lipase is 56. IMAGING STUDIES CT scan of the abdomen and pelvis dated 07/09/2017 without contrast indicates abnormal colon with an 8-9 cm segment in the distal descending colon/proximal sigmoid colon with concentric abdominal wall thickening and some inflammatory changes with pericolonic fat would suggest colitis, otherwise stable abdomen and prior cholecystectomy with chronic dilatation of the intrahepatic bile ducts. Punctate calcifications within the pancreatic head remain unchanged. Progressive consolidation with air bronchograms in the left lower lobe additionally appreciated. ASSESSMENT Ms. Hylton is a 66-year-old lady with multiple medical comorbid conditions. From a hematologic/oncologic standpoint, she has a remote history of a resected squamous cell carcinoma of the lung which is in remission. From a hematologic standpoint, she has a history of anemia related to end-stage renal failure for which she receives Epogen injections with hemodialysis with good response. Additional hematologic issues include autoimmune neutropenia for which she receives periodic Neupogen injections. She presents to the hospital with what appears to be a sigmoid colon colitis and she also has significant neutropenia at this time. The hematology service has been asked to see her to optimize management of neutropenia to render affective treatment against the colitis. RECOMMENDATIONS Autoimmune neutropenia: I will dose her with Neupogen 480 mcg subcu today and will repeat CBC in the morning. Continue IV antibiotics. Await workup by the GI service. MD LUKAS Echeverria/ERLIN /7:38 AM /8:03 AM
[2017-07-10] MEDS: RESP: ALBUTEROL 2.5 MG/IPRATROPIUM 0.5 MG NEB (SCH) NEB ×4 (08:49→21:37)
--- NOTE | 2017-07-10 10:37 | MH ---
cc: TONYA MCMANUS MD DATE OF ADMISSION 07/09/2017 CHIEF COMPLAINT Abdominal pain and back pain. HISTORY OF PRESENT ILLNESS Allie Hylton is a 66-year-old female who was complaining of back and abdominal pain. She presented to the emergency room and missed her dialysis yesterday. The emergency room physician ordered a CT scan which showed colitis and possible UTI and upper respiratory infection. She added that she has not been having bowel movements and was found to have chronic neutropenia. She was found to have an ANC of 342. She was given IV antibiotics in the emergency room and I was thus called for admission. We immediately ordered a nephrology consult to get her back on schedule with her dialysis Tuesdays and from what I recall she only goes twice a week. She underwent dialysis already. She states she has still not had a bowel movement. GI was consulted and reportedly are going to do a colonoscopy tomorrow. I was called for ongoing abdominal pain and she and her daughter were requesting IV Dilaudid again since they had had it in the emergency room. PAST MEDICAL HISTORY 1. Anxiety, depression 2. Lung cancer 3. COPD 4. Diabetes 5. Constipation 6. Chronic opioid usage 7. Gastroesophageal reflux disease 8. Urinary retention 9. Food born hepatitis 10. End stage renal disease on hemodialysis 11. Emphysema 12. Brain aneurysm 13. Osteoarthritis PAST SURGICAL HISTORY 1. Cholecystectomy 2. Brain aneurysm stent 3. Wedge resection for squamous cell lung cancer 4. Tubal ligation 5. AV fistula for dialysis access. ALLERGIES CIPRO, CODEINE, MORPHINE. HOME MEDICATIONS 1. Oxycodone p.r.n. 1. Xanax p.r.n. 2. Vitamin D 3. Fluoxetine 4. Midodrine 5. Calcium acetate t.i.d. 6. Famotidine 20 mg daily 7. Colace 100 b.i.d. 8. Spiriva 9. Gabapentin 10. Bupropion 11. ProAir p.r.n. 12. Zofran 13. Phenergan 14. Dialyvite 15. TUMS 16. Symbicort 17. Mucinex 18. Aspirin 19. Home O2 FAMILY HISTORY She is unable to tell. Upon my record review, noncontributory at my office. SOCIAL HISTORY Daily smoker. No alcohol or illicit drug usage. REVIEW OF SYSTEMS Negative 14-point review of systems except as above. She has chronic cough and congestion and pain complaints. She reports constipation and abdominal pain now. LABORATORY DATA WBCs 1.9, platelets are 297, hemoglobin 11.6. Sodium 135, potassium 5.6, creatinine 8.86, lipase 56. Blood cultures are pending.. IMAGING STUDIES Abdomen CT shows colitis, chronic intrahepatic dilation, pancreatic calcifications, left lower lobe pneumonia. PHYSICAL EXAM VITALS: Temperature 97.9, pulse 80, respirations 20, blood pressure 101/52, pulse ox 93% on O2. GENERAL: She is a frail, emaciated female. She is lying flat. She arouses to voice after she is sleeping. HEENT: No JVD. Oropharynx is clear. NECK: Carotids are clear. CHEST: She has basilar rhonchi and left base crackles very harsh congested cough. CARDIOVASCULAR: Regular rate and rhythm. No murmurs, rubs, clicks or gallops. ABDOMEN: Soft. Tender in all quadrants. No rebound or guarding, normoactive bowel sounds. No masses. EXTREMITIES: No edema. SKIN: Clear. ASSESSMENT/PLAN 1. Colitis: IV antibiotic, n.p.o. tonight and apparently GI is going to do colonoscopy tomorrow. 2. End-stage renal disease. Continue dialysis. 3. Pneumonia: IV antibiotics, DuoNebs q.i.d. 4. Squamous cell cancer of the lung. 5. Anemia secondary to renal failure: Continue Epogen with Hemodialysis. 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 Angel Ugalde. He has been consulted and is following. 7. Active smoker 8. Emphysema 9. 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 Consult to GI, medical oncology and nephrology. 12. GI prophylaxis on PPI 13. DVT prophylaxis on heparin 5000 units q.12 h 14. Physical therapy DISPOSITION Patient is observation, however we may need to change her to inpatient. We will consult case management. The daughter will likely want her home. We will continue to evaluate Tonya Mcmanus MD RP/ERLIN /9:53 AM /10:15 AM
--- NOTE | 2017-07-10 13:54 | HHI.NPPN ---
Subjective History of Present Illness 66 year old female with ESRD, Lung Ca, Colitis Review of Systems General Constitutional: Fatigue Objective Data Data 07/10/17 07/11/17 18:59 06:59 Intake Total 100 ml Balance 100 ml IV Total 100 ml Vital Signs Date Time Temp Pulse Resp B/P (MAP) Pulse Ox O2 Delivery O2 Flow Rate FiO2 07/10/17 12:00 95.4 82 17 110/59 (76) 96 07/10/17 08:52 93 07/10/17 08:00 97.8 74 17 96/50 (65) 100 07/10/17 04:00 97.9 80 20 101/52 (68) 100 07/10/17 03:23 20 07/10/17 00:00 99.8 82 20 107/62 (77) 96 07/09/17 23:58 78 07/09/17 22:02 99.5 85 20 125/58 (80) 95 07/09/17 20:30 99.5 82 22 116/57 (76) 95 07/09/17 20:00 96.3 97 20 129/ 96 07/09/17 14:36 75 17 98/53 (68) 96 Room Air -: 07/09/17 1015 07/09/17 1015 Physical Exam General Appearance: Well Developed, Well Nourished Pulmonary Resp Exam: Clear Bilaterally Cardiology CV Exam: Regular, Normal Sinus Rhythm Gastrointestinal/Abdomen GI Exam: Soft, Non-Tender, Bowel Sounds Present Extremeties Extremities Exam: No Edema Neurologic Neuro Exam: Alert, Awake Assessment/Plan Problem List: (1) ESRD (end stage renal disease) ICD Codes: N18.6 - End stage renal disease Status: Chronic Plan: Patient has pelvic pain\ ESRD on HD TTS She has colitis and has been admitted for treatment (2) Colitis ICD Codes: K52.9 - Noninfective gastroenteritis and colitis, unspecified Status: Acute Plan: Patient is being treated studies pending (3) Dementia ICD Codes: F03.90 - Unspecified dementia without behavioral disturbance Status: Acute Plan: Per daughter she is concerned she is forgetful (4) COPD (chronic obstructive pulmonary disease) ICD Codes: J44.9 - Chronic obstructive pulmonary disease, unspecified Status: Chronic Plan: Continue supportive care (5) Neutropenia ICD Codes: D70.9 - Neutropenia, unspecified Status: Chronic Plan: Patient has autoimmune neutropenia and gets Neupogen Oscar Jurado MD Jul 10, 2017 13:54
[2017-07-10] MEDS ORDERED: PEG (High)/E-LYTE SOLN 4000 ML BTL PO ONE (14:00)
--- NOTE | 2017-07-10 14:09 | HHI.GIFU ---
Subjective Remarks Resting in the bed Decreased appetite but able to take a few clear liquids Afebrile No acute complaints (Sushma Vazquez) Objective Vitals I&O Vital Signs Date Time Temp Pulse Resp B/P (MAP) Pulse Ox O2 Delivery O2 Flow Rate FiO2 07/10/17 12:00 95.4 82 17 110/59 (76) 96 07/10/17 08:52 93 07/10/17 08:00 97.8 74 17 96/50 (65) 100 07/10/17 04:00 97.9 80 20 101/52 (68) 100 07/10/17 03:23 20 07/10/17 00:00 99.8 82 20 107/62 (77) 96 07/09/17 23:58 78 07/09/17 22:02 99.5 85 20 125/58 (80) 95 07/09/17 20:30 99.5 82 22 116/57 (76) 95 07/09/17 20:00 96.3 97 20 129/ 96 07/09/17 14:36 75 17 98/53 (68) 96 Room Air I/O 07/09/17 07/09/17 07/09/17 07/10/17 07/10/17 07/10/17 07:00 15:00 23:00 07:00 15:00 23:00 Intake Total 250 ml 240 ml 100 ml Output Total 2500 ml Balance -2250 ml 240 ml 100 ml Intake Oral 240 ml IV Total 250 ml 100 ml Output Hemodialysis 2500 ml # Voids 1 # Bowel Movements 0 Laboratory Date/Time Source Procedure Growth Status 07/09/17 13:10 Blood Peripheral Aerobic Blood Culture - Preliminary NO GROWTH IN 1 DAY Resulted 07/09/17 13:10 Blood Peripheral Anaerobic Blood Culture - Preliminary NO GROWTH IN 1 DAY Resulted Imaging Last Impressions Abdomen/Pelvis CT 07/09/17 0000 Signed Impressions: Service Date/Time: Sunday, July 09, 2017 10:51 - CONCLUSION: Abnormal colon along segment 8-9 cm distal descending colon proximal sigmoid colon with concentric bowel wall thickening and some inflammatory changes in the pericolonic fat which suggests colitis. Otherwise stable abdomen with prior cholecystectomy and chronic dilatation of intrahepatic bile ducts. Punctate calcifications in the pancreatic head are unchanged. Progressive consolidation with air bronchograms in the left lower lobe additionally appreciated Ish Dalton MD Physical Exam HEENT: Pupils round and reactive to light; normocephalic; atraumatic; no jaundice. Pale NECK: Neck is supple, no JVD, no lymphadenopathy. CHEST: Chest is clear that rhonchi CARDIAC: Regular rate and rhythm ABDOMEN: Flat, Soft, nondistended, no hepatosplenomegaly; bowel sounds soft EXTREMITIES: No clubbing, cyanosis, or edema. SKIN: Normal; no rash; no jaundice. MATH COACH: No focal deficits; awake nose where she is but fair to poor historian (Sushma Vazquez) Assessment and Plan Assessment: (1) Colitis ICD Codes: K52.9 - Noninfective gastroenteritis and colitis, unspecified (2) Constipation due to opioid therapy ICD Codes: K59.03 - Drug induced constipation; [id number] - Adverse effect of other opioids, initial encounter (3) ESRD (end stage renal disease) ICD Codes: N18.6 - End stage renal disease Status: Chronic (4) Chronic kidney disease ICD Codes: N18.9 - Chronic kidney disease, unspecified Status: Chronic Plan Constipation probable secondary to her daily opioid use. Has been 5 days or greater since bowel movement. In patients currently starting on dialysis which will not and early evening. Plan mag citrate dose this p.m. around 7:00 or after patient's finished with dialysis. Colitis seen on CT scan, currently being managed on Levaquin and Flagyl. She is allergic to Cipro Will work towards bowel movements over the next 24 hours, patient receiving GoLYTELY today Anemia stable at 11.6, no obvious bleeding, this is probably secondary to her end-stage renal disease She having symptoms of nausea and heartburn with some dysphasia Plan Plan EGD colonoscopy 07/11/17 Clear liquid diet GoLYTELY prep Consents to sign Nothing by mouth at midnight on 07/11/17 Patient can have her baby aspirin but no other anticoagulants except for what is involved with her renal (Sushma Vazquez) Physician Comments Patient seen and examined Agree with above Continue with current supportive care Monitor labs EGD: Tomorrow (Jarvis Arias MD) Sushma Vazquez Jul 10, 2017 14:09 Jarvis Arias MD Jul 11, 2017 00:25
[2017-07-10] MEDS ORDERED: LACTATED RINGER'S 1000 ML IV PRN (22:00)
[2017-07-11] VITALS: BP 120/52; PULSE 72; RESP 15; TEMP 96.8; O2SAT 97
[2017-07-11] MEDS: HYDROmorphone HCL PF 2 MG/ML VIAL IV PUSH PRN ×3 (00:55→21:46)
[2017-07-11 01:28] VITALS: PULSE 70
[2017-07-11 04:00] VITALS: BP 119/60; PULSE 67; RESP 15; TEMP 96.7; O2SAT 97
[2017-07-11 07:44] VITALS: BP 122/55; PULSE 60; RESP 20; TEMP 98; O2SAT 96
--- NOTE | 2017-07-11 08:17 | HHI.FPPN ---
Subjective Remarks numerous calls from RN's re daughters requests and demands. daughter removed by security last night. pt appears stable, she has no new c/o Objective Vitals Vital Signs Date Time Temp Pulse Resp B/P (MAP) Pulse Ox O2 Delivery O2 Flow Rate FiO2 07/11/17 07:44 98.0 60 20 122/55 (77) 96 07/11/17 04:00 96.7 67 15 119/60 (79) 97 07/11/17 01:28 70 07/11/17 00:00 96.8 72 15 120/52 (74) 97 07/10/17 21:41 97 21 07/10/17 20:00 96.9 69 15 119/57 (77) 96 07/10/17 16:00 96.7 70 17 116/73 (87) 100 07/10/17 12:00 95.4 82 17 110/59 (76) 96 07/10/17 08:52 93 I/O 07/10/17 07/10/17 07/10/17 07/11/17 07/11/17 07/11/17 07:00 15:00 23:00 07:00 15:00 23:00 Intake Total 240 ml 100 ml 960 ml 480 ml Balance 240 ml 100 ml 960 ml 480 ml Intake Oral 240 ml 960 ml 480 ml IV Total 100 ml # Voids 1 0 3 # Bowel Movements 0 1 0 Result Diagram: 07/09/17 1015 07/09/17 1015 Objective Remarks GENERAL: SKIN: Warm and dry. HEAD: Atraumatic. Normocephalic. EYES: Pupils equal and round. No scleral icterus. No injection or drainage. ENT: No nasal bleeding or discharge. Mucous membranes pink and moist. NECK: Trachea midline. No JVD. CARDIOVASCULAR: Regular rate and rhythm. RESPIRATORY: No accessory muscle use. bilat rales and ronchi. Breath sounds equal bilaterally. GASTROINTESTINAL: Abdomen soft, non-tender, nondistended. Hepatic and splenic margins not palpable. MUSCULOSKELETAL: Extremities without clubbing, cyanosis, or edema. No obvious deformities. NEUROLOGICAL: Awake and alert. No obvious cranial nerve deficits. Motor grossly within normal limits. 2 out of 5 muscle strength in the arms and legs. Normal speech. PSYCHIATRIC: Appropriate mood and affect; insight and judgment normal. Medications and IVs Current Medications Medications (Trade) Dose Ordered Sig/Carlos Route Start Time Stop Time Status Last Admin (Aspirin Chew) 81 mg DAILY CHEW 07/10/17 09:00 07/10/17 08:24 (Symbicort 160-4.5 Mcg Inh) 2 puff Q12HR INH 07/09/17 21:00 07/10/17 21:25 (Phoslo) 667 mg TIDPC PO 07/09/17 18:30 07/10/17 18:05 (Colace) 100 mg BID PRN PO 07/09/17 13:45 (PROzac) 20 mg DAILY PO 07/10/17 09:00 07/10/17 08:23 (Neurontin) 100 mg TID PO 07/09/17 18:00 07/10/17 18:05 (Emla Cream) 1 applic BID PRN TOPICAL 07/09/17 13:45 (Proamatine) 10 mg TID PO 07/09/17 18:00 07/10/17 18:05 (Phenergan) 25 mg Q6H PRN PO 07/09/17 13:45 (NS Flush) 2 ml UNSCH PRN IV FLUSH 07/09/17 14:00 (NS Flush) 2 ml BID IV FLUSH 07/09/17 21:00 07/10/17 21:22 (Zofran Inj) 4 mg Q6H PRN IVP 07/09/17 14:00 07/09/17 19:46 (Heparin Inj) 5,000 units Q12H SQ 07/09/17 14:00 07/10/17 02:52 (Narcan Inj) 0.4 mg UNSCH PRN IV PUSH 07/09/17 14:00 (Marixa-Colace) 1 tab BID PO 07/09/17 21:00 07/10/17 21:21 (Milk Of Magnesia Liq) 30 ml Q12H PRN PO 07/09/17 14:00 (Senokot) 17.2 mg Q12H PRN PO 07/09/17 14:00 07/10/17 21:21 (Dulcolax Supp) 10 mg DAILY PRN RECTAL 07/09/17 14:00 (Lactulose Liq) 30 ml DAILY PRN PO 07/09/17 14:00 (Catapres) 0.1 mg Q6H PRN PO 07/09/17 14:00 Metronidazole 100 ml @ 100 mls/hr Q12H IV 07/09/17 21:00 07/10/17 08:24 Sodium Chloride 1,000 ml @ 0 mls/hr Q0M PRN OTHER 07/09/17 14:52 (Heparin Inj) 8,000 units UNSCH PRN IV FLUSH 07/09/17 15:00 Sodium Chloride 1,000 ml @ 200 mls/hr Q5H PRN IV 07/09/17 14:52 Sodium Chloride 1,000 ml @ 0 mls/hr Q0M PRN OTHER 07/09/17 14:52 (Mannitol Inj) 12.5 gm UNSCH PRN IV 07/09/17 15:00 07/09/17 17:45 Albumin Human 100 ml @ 60 mls/hr UNSCH PRN IV 07/09/17 15:00 07/09/17 17:46 (NS Flush) 5 ml UNSCH PRN IV FLUSH 07/09/17 15:00 (Heparin Inj) UNSCH PRN .XX 07/09/17 15:00 (Gentamicin (Dialysis) Inj) 20 mg UNSCH PRN OTHER 07/09/17 15:00 (Zofran Inj) 4 mg UNSCH PRN IV PUSH 07/09/17 15:00 (Tylenol) 650 mg UNSCH PRN PO 07/09/17 15:00 (Benadryl) 25 mg UNSCH PRN PO 07/09/17 15:00 (Nitrostat Sl) 0.4 mg UNSCH PRN SL 07/09/17 15:00 (Catapres) 0.1 mg UNSCH PRN PO 07/09/17 15:00 (Epogen Inj) 4,000 units UNSCH PRN IV PUSH 07/09/17 15:00 07/09/17 17:45 (Gelfoam 12 Mm/7 Mm Top) 1 foam UNSCH PRN TOP 07/09/17 15:00 07/09/17 17:45 (Protonix) 40 mg Q12HR PO 07/09/17 21:00 07/10/17 21:21 (Dilaudid Pf Inj) 0.5 mg Q6H PRN IV PUSH 07/09/17 20:45 07/11/17 00:55 (Habitrol 21 Mg Patch.24 Hr) 1 patch DAILY T-DERMAL 07/10/17 09:00 07/10/17 08:25 Miscellaneous Information 1 HS T-DERMAL 07/09/17 21:00 07/10/17 08:25 (Xanax) 1 mg BID PRN PO 07/09/17 20:45 07/09/17 20:53 Levofloxacin/ Dextrose 50 ml @ 50 mls/hr Q48H IV 07/11/17 21:00 (Duoneb Neb) 1 ampule QID NEB NEB 07/10/17 12:00 07/10/17 21:37 Lactated Ringer's 1,000 ml @ 30 mls/hr Q24H PRN IV 07/10/17 22:00 07/13/17 21:59 Sodium Chloride 500 ml @ 30 mls/hr [id number] PRN IV 07/10/17 22:00 07/13/17 21:59 Vascular Central Line Catheter: Yes A/P Assessment and Plan ASSESSMENT/PLAN 1. Colitis: IV antibiotic, n.p.o. and apparently GI is going to do colonoscopy 2. End-stage renal disease. Continue dialysis per Dr Jurado 3. Pneumonia: IV antibiotics, DuoNebs q.i.d. 4. Squamous cell cancer of the lung. 5. Anemia secondary to renal failure: Continue Epogen with Hemodialysis. 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 Angel Ugalde. He has been consulted and is following. 7. Active smoker 8. Emphysema 9. 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 Consult to GI, medical oncology and nephrology. 12. GI prophylaxis on PPI 13. DVT prophylaxis on heparin 5000 units q.12 h 14. Physical therapy palliative consult per daughter request, she is interested in hospice PT requires further inpt stay, she has been obs, expect further GI w/u and iv abx however bowel prep appears insufficient. possible dc two to three days, yet dgtr questioning hospice as noted. Alli Watkins MD Jul 11, 2017 08:17
[2017-07-11 08:41] LABS: INTERNATIONAL NORMALIZED RATIO 1.2 RATIO; PROTHROMBIN TIME - PATIENT 12.6 SEC (9.8-11.6)
[2017-07-11 08:42] LABS: HEMATOCRIT 34.1 % (35.0-46.0); HEMOGLOBIN 11.2 GM/DL (11.6-15.3); MEAN CELL VOLUME 90.5 FL (80.0-100.0); MEAN CORPUSCULAR HEMOGLOBIN 29.8 PG (27.0-34.0); MEAN CORPUSCULAR HGB CONC 32.9 % (32.0-36.0); MEAN PLATELET VOLUME 7.9 FL (7.0-11.0); PLATELET COUNT 310 TH/MM3 (150-450); RED BLOOD COUNT 3.77 MIL/MM3 (4.00-5.30); RED CELL DISTRIBUTION WIDTH 16.3 % (11.6-17.2); WHITE BLOOD COUNT 2.8 TH/MM3 (4.0-11.0)
[2017-07-11] MEDS: SODIUM CHLORIDE 0.9% FLUSH 10 ML FLUSH IV FLUSH SCH ×2 (08:46→21:45)
[2017-07-11] MEDS: PANTOPRAZOLE SOD 40 MG DELAYED RELEASE TAB PO SCH ×2 (08:46→21:05)
[2017-07-11] MEDS: NICOTINE 21 MG/24 HR PATCH T-DERMAL SCH (08:46)
[2017-07-11] MEDS: DOCUSATE SODIUM 50 MG/SENNA 8.6 MG TAB PO SCH ×2 (08:46→21:05)
[2017-07-11] MEDS: GABAPENTIN 100 MG CAP PO SCH ×3 (08:46→18:32)
[2017-07-11] MEDS: MIDODRINE 5 MG TAB PO SCH ×3 (08:46→18:33)
[2017-07-11] MEDS: FLUoxetine HCL 20 MG CAP PO SCH (08:46)
[2017-07-11] MEDS: ASPIRIN 81 MG CHEW TAB CHEW SCH (08:46)
[2017-07-11] MEDS: BUDESONIDE-FORMOTEROL 160/4.5 MCG INHALER INH SCH ×2 (08:49→21:06)
[2017-07-11] MEDS: metroNIDAZOLE 500 MG INJ 100 ML IV SCH ×2 (08:50→21:49)
[2017-07-11 09:00] LABS: CALCIUM 8.6 MG/DL (8.5-10.1); CREATININE 6.91 MG/DL (0.50-1.00); PHOSPHORUS 2.6 MG/DL (2.5-4.9)
[2017-07-11] MEDS: RESP: ALBUTEROL 2.5 MG/IPRATROPIUM 0.5 MG NEB (SCH) NEB ×4 (09:00→20:00)
[2017-07-11] MEDS: CALCIUM ACETATE 667 MG CAP PO SCH ×3 (09:30→18:32)
[2017-07-11 09:31] LABS: BANDS 5 % (0-6); BASOPHILS 3 % (0-2); LYMPHOCYTES 19 % (9-44); METAMYELOCYTES 6 % (0-1); MONOCYTES 48 % (0-8); MYELOCYTES 2 % (0-0); NEUTROPHIL # MANUAL DIFF 0.4 TH/MM3 (1.8-7.7)
--- NOTE | 2017-07-11 09:37 | RADRPT ---
EXAM DATE/TIME: 07/11/2017 09:19 [place] COMPARISON: HIP RIGHT (AP&LAT 2/3VWS) W AP PELVIS, January 03, 2017, 17:48. INDICATIONS : Recent fall, bruised right hip MEDICAL HISTORY : Renal failure, chronic. Chronic obstructive pulmonary disease. dialysis SURGICAL HISTORY : None. ENCOUNTER: Subsequent ACUITY: 2 days PAIN SCORE: Non-responsive. LOCATION: Right hip FINDINGS: Examination of the right hip was performed with AP Pelvis. The right hip has been fixated with an IM nail and femoral neck screw. There are no palpitations. The hip joint is of normal width without sign ificant sclerosis or bony hypertrophy. The acetabulum is grossly intact. CONCLUSION: Unremarkable examination of the right hip status post previous fixation. No acute fracture is seen. Uche Jalloh MD on July 11, 2017 at 9:34 Board Certified Radiologist. This report was verified electronically.
--- NOTE | 2017-07-11 11:30 | HHI.NPPN ---
Subjective History of Present Illness 66 year old female with ESRD, Lung Ca, Colitis Review of Systems General Constitutional: Fatigue Objective Data Data Vital Signs Date Time Temp Pulse Resp B/P (MAP) Pulse Ox O2 Delivery O2 Flow Rate FiO2 07/11/17 07:44 98.0 60 20 122/55 (77) 96 07/11/17 04:00 96.7 67 15 119/60 (79) 97 07/11/17 01:28 70 07/11/17 00:00 96.8 72 15 120/52 (74) 97 07/10/17 21:41 97 21 07/10/17 20:00 96.9 69 15 119/57 (77) 96 07/10/17 16:00 96.7 70 17 116/73 (87) 100 07/10/17 12:00 95.4 82 17 110/59 (76) 96 -: 07/11/17 0809 07/11/17 0809 Physical Exam General Appearance: Well Developed, Well Nourished Pulmonary Resp Exam: Clear Bilaterally Cardiology CV Exam: Regular, Normal Sinus Rhythm Gastrointestinal/Abdomen GI Exam: Soft, Non-Tender, Bowel Sounds Present Extremeties Extremities Exam: No Edema Neurologic Neuro Exam: Alert, Awake Assessment/Plan Problem List: (1) ESRD (end stage renal disease) ICD Codes: N18.6 - End stage renal disease Status: Chronic Plan: Patient has pelvic pain\ ESRD on HD TTS seen at dialysis explained that was discussed to increase time to 3 days a week as not doing well and was discussed with daughter, who stated her memory is poor UF 1 L as tolerates She has colitis and has been admitted for treatment (2) Colitis ICD Codes: K52.9 - Noninfective gastroenteritis and colitis, unspecified Status: Acute Plan: Patient is being treated studies pending (3) Dementia ICD Codes: F03.90 - Unspecified dementia without behavioral disturbance Status: Acute Plan: Per daughter she is concerned she is forgetful (4) COPD (chronic obstructive pulmonary disease) ICD Codes: J44.9 - Chronic obstructive pulmonary disease, unspecified Status: Chronic Plan: Continue supportive care (5) Neutropenia ICD Codes: D70.9 - Neutropenia, unspecified Status: Chronic Plan: Patient has autoimmune neutropenia and gets Neupogen Oscar Jurado MD Jul 11, 2017 11:30
[2017-07-11] MEDS ORDERED: LIDOCAINE HCL 1% PF 5 ML SYRINGE OTHER ONE (12:00)
[2017-07-11] MEDS ORDERED: ePHEDrine/NS 25 MG/5 ML SYRINGE IV ONE (12:00)
[2017-07-11] MEDS ORDERED: PHENYLEPH/NS 1000 MCG/10 ML SYR IV ONE (12:00)
[2017-07-11] MEDS ORDERED: PROPOFOL 200 MG/20 ML AMP IV ONE (12:00)
--- NOTE | 2017-07-11 12:36 | PD.PSY.CON ---
Provisional Diagnosis Admission Date Jul 09, 2017 at 12:48 History of Present Illness Service Psychiatry Consult Requested By Medical team Reason for Consult For assessment of capacity Primary Care Physician Alli Watkins MD Past Family Social History Coded Allergies: morphine (Verified Allergy, Severe, RASH, 07/09/17) ciprofloxacin (Verified Adverse Reaction, Intermediate, NAUSEAS, 07/09/17) codeine (Verified Adverse Reaction, Intermediate, Vertigo, 07/09/17) Active Scripts Oxycodone (Oxycodone) 10 Mg Tab, 10 MG PO Q6HR Y for PAIN SCALE 1 TO 10, #90 TAB 0 Refills Prov:Binu Dave MD 01/07/17 Alprazolam (Xanax) 1 Mg Tab, 1 MG PO BID Y for ANXIETY, #60 TAB Prov:Binu Dave MD 01/07/17 Cholecalciferol (Vitamin D3) 2,000 Unit Cap, 2000 UNITS PO DAILY for Nutritional Supplement, #30 BOTTLE 0 Refills Prov:Binu Dave MD 01/07/17 Fluoxetine (Fluoxetine) 20 Mg Tab, 20 MG PO DAILY, #30 TAB 0 Refills Prov:Binu Dave MD 01/07/17 Midodrine (Midodrine) 10 Mg Tab, 10 MG PO TID for Control Low Blood Pressure, # 90 TAB 0 Refills Prov:Binu Dave MD 01/07/17 Calcium Acetate (Phosphate Bin (Calcium Acetate) 667 Mg Cap, 667 MG PO TIDPC for dialysis, #90 CAP 3 Refills Prov:Binu Dave MD 01/07/17 Famotidine (Famotidine) 20 Mg Tab, 20 MG PO DAILY, #30 TAB 0 Refills Prov:Binu Dave MD 01/07/17 Docusate Sodium (Docusate Sodium) 100 Mg Cap, 100 MG PO BID Y for Prevent Constipation, #60 CAP 0 Refills Prov:Binu Dave MD 01/07/17 Tiotropium Inh (Spiriva Handihaler) 18 Mcg Cap, 18 MCG INH DAILY for COPD for 30 Days, CAP 0 Refills 1 capsule = 18 mcg Prov:Binu Dave MD 01/07/17 Gabapentin (Gabapentin) 100 Mg Cap, 100 MG PO TID, #90 CAP 0 Refills Prov:Binu Dave MD 01/07/17 Hospital Bed - Electric (Hospital Bed - Electric) 1 Ea Ea, 1 EA .ROUTE DIRECTED, #1 EA Prov:Art Vasquez [employer] 01/07/17 Wheelchair (Wheelchair) 1 Mis Mis, 1 EA .ROUTE DIRECTED, #1 EA 0 Refills Prov:Art Vasquez [employer] LAWYER 01/07/17 Commode 3-in-1 (Commode 3-in-1) 1 Mis Mis, 1 EA .ROUTE DIRECTED, #1 EA 0 Refills Prov:Art Vasquez [employer]OB[employer] LAWYER 01/07/17 Walker Rolling/GetGo (Walker Rolling/GetGo) 1 Mis Mis, 1 EA .ROUTE DIRECTED, #1 EA Prov:Art Vasquez [employer] LAWYER 01/07/17 Reported Medications Bupropion HCl ER 24 HR (Bupropion HCl ER 24 HR) 150 Mg Tab, 150 MG PO DAILY for Control Depression, TAB 0 Refills 07/09/17 Albuterol 8.5 GM Inh (Proair Hfa 8.5 GM Inh) 90 Mcg/Act Aer, 2 PUFF INH Q4-6H Y for SHORTNESS OF BREATH, #1 INHALER 0 Refills 108 mcg/actuation 07/09/17 Lidocaine-Prilocaine Topical (Lidopril Topical) 2.5-2.5 % Cream, 1 APPLIC TOPICAL BID Y for Numbs skin, #1 TUBE 0 Refills 07/09/17 Ondansetron (Zofran) 4 Mg Tab, 4 MG PO Q6HR Y for NAUSEA OR VOMITING, TAB 0 Refills 07/09/17 Promethazine (Phenergan) 25 Mg Tablet, 25 MG PO Q6H Y for NAUSEA OR VOMITING, TAB 0 Refills 04/17/17 Varenicline (Chantix) 0.5 Mg Tab, 0.5 MG PO DAILY for Smoking cessation, #3 TAB 0 Refills Days 1-3 04/17/17 B-Complex W/ C & Folic Acid (Dialyvite 800) 1 Tab 04/17/17 Albuterol 18 GM Inh (Ventolin Hfa 18 GM Inh) 90 Mcg/Act Aer, 2 PUFF INH Q4-6H Y for SHORTNESS OF BREATH, #1 INHALER 0 Refills 04/17/17 Calcium Carbonate (Antacid) (Tums) 500 Mg Chew, 500 MG CHEW Y for HEARTBURN, TAB 0 Refills 04/17/17 Budesonide-Formoterol Inh (Symbicort Inh) 160-4.5 Mcg/Act Aero, 2 PUFF INH Q12HR , #1 INHALER 0 Refills 04/17/17 Dextromethorphan-Guaifenesin (Mucinex DM) 30-600 Mg Tab, 2 TAB PO BID Y for CHEST CONGESTION AND/OR COUGH, TAB 0 Refills 04/17/17 Aspirin (Aspirin) 81 Mg Chew, 81 MG CHEW DAILY, TAB 0 Refills 04/17/17 Oxygen tank (Oxygen tank) 1 Ea Tank, 2 LITER EDUARDO.CANULA HS for HYPOXEMIA PREVENTION, #2 CYLINDER Oxygen Concentrator Portable Gaseous 2 L/min via Nasal Cannula Continuous For 99 months 09/17/16 Current Medications Medications (Trade) Dose Ordered Sig/Carlos Route Start Time Stop Time Status Last Admin (Aspirin Chew) 81 mg DAILY CHEW 07/10/17 09:00 07/11/17 08:46 (Symbicort 160-4.5 Mcg Inh) 2 puff Q12HR INH 07/09/17 21:00 07/11/17 08:49 (Phoslo) 667 mg TIDPC PO 07/09/17 18:30 07/10/17 18:05 (Colace) 100 mg BID PRN PO 07/09/17 13:45 (PROzac) 20 mg DAILY PO 07/10/17 09:00 07/11/17 08:46 (Neurontin) 100 mg TID PO 07/09/17 18:00 07/11/17 08:46 (Emla Cream) 1 applic BID PRN TOPICAL 07/09/17 13:45 (Proamatine) 10 mg TID PO 07/09/17 18:00 07/11/17 08:46 (Phenergan) 25 mg Q6H PRN PO 07/09/17 13:45 (NS Flush) 2 ml UNSCH PRN IV FLUSH 07/09/17 14:00 (NS Flush) 2 ml BID IV FLUSH 07/09/17 21:00 07/11/17 08:46 (Zofran Inj) 4 mg Q6H PRN IVP 07/09/17 14:00 07/09/17 19:46 (Heparin Inj) 5,000 units Q12H SQ 07/09/17 14:00 07/10/17 02:52 (Narcan Inj) 0.4 mg UNSCH PRN IV PUSH 07/09/17 14:00 (Marixa-Colace) 1 tab BID PO 07/09/17 21:00 07/11/17 08:46 (Milk Of Magnesia Liq) 30 ml Q12H PRN PO 07/09/17 14:00 (Senokot) 17.2 mg Q12H PRN PO 07/09/17 14:00 07/10/17 21:21 (Dulcolax Supp) 10 mg DAILY PRN RECTAL 07/09/17 14:00 (Lactulose Liq) 30 ml DAILY PRN PO 07/09/17 14:00 (Catapres) 0.1 mg Q6H PRN PO 07/09/17 14:00 Metronidazole 100 ml @ 100 mls/hr Q12H IV 07/09/17 21:00 07/10/17 08:24 Sodium Chloride 1,000 ml @ 0 mls/hr Q0M PRN OTHER 07/09/17 14:52 (Heparin Inj) 8,000 units UNSCH PRN IV FLUSH 07/09/17 15:00 Sodium Chloride 1,000 ml @ 200 mls/hr Q5H PRN IV 07/09/17 14:52 Sodium Chloride 1,000 ml @ 0 mls/hr Q0M PRN OTHER 07/09/17 14:52 (Mannitol Inj) 12.5 gm UNSCH PRN IV 07/09/17 15:00 07/09/17 17:45 Albumin Human 100 ml @ 60 mls/hr UNSCH PRN IV 07/09/17 15:00 07/09/17 17:46 (NS Flush) 5 ml UNSCH PRN IV FLUSH 07/09/17 15:00 (Heparin Inj) UNSCH PRN .XX 07/09/17 15:00 (Gentamicin (Dialysis) Inj) 20 mg UNSCH PRN OTHER 07/09/17 15:00 (Zofran Inj) 4 mg UNSCH PRN IV PUSH 07/09/17 15:00 (Tylenol) 650 mg UNSCH PRN PO 07/09/17 15:00 (Benadryl) 25 mg UNSCH PRN PO 07/09/17 15:00 (Nitrostat Sl) 0.4 mg UNSCH PRN SL 07/09/17 15:00 (Catapres) 0.1 mg UNSCH PRN PO 07/09/17 15:00 (Epogen Inj) 4,000 units UNSCH PRN IV PUSH 07/09/17 15:00 07/09/17 17:45 (Gelfoam 12 Mm/7 Mm Top) 1 foam UNSCH PRN TOP 07/09/17 15:00 07/09/17 17:45 (Protonix) 40 mg Q12HR PO 07/09/17 21:00 07/11/17 08:46 (Dilaudid Pf Inj) 0.5 mg Q6H PRN IV PUSH 07/09/17 20:45 07/11/17 08:44 (Habitrol 21 Mg Patch.24 Hr) 1 patch DAILY T-DERMAL 07/10/17 09:00 07/11/17 08:46 Miscellaneous Information 1 HS T-DERMAL 07/09/17 21:00 07/10/17 08:25 (Xanax) 1 mg BID PRN PO 07/09/17 20:45 07/09/17 20:53 Levofloxacin/ Dextrose 50 ml @ 50 mls/hr Q48H IV 07/11/17 21:00 (Duoneb Neb) 1 ampule QID NEB NEB 07/10/17 12:00 07/10/17 21:37 Lactated Ringer's 1,000 ml @ 30 mls/hr Q24H PRN IV 07/10/17 22:00 07/13/17 21:59 Sodium Chloride 500 ml @ 30 mls/hr [id number] PRN IV 07/10/17 22:00 07/13/17 21:59 Physical Exam Vital Signs Vital Signs Date Time Temp Pulse Resp B/P (MAP) Pulse Ox O2 Delivery O2 Flow Rate FiO2 07/11/17 07:44 98.0 60 20 122/55 (77) 96 07/10/17 21:41 21 07/09/17 14:36 Room Air I/O 07/11/17 07/11/17 07/12/17 08:00 16:00 00:00 Intake Total 480 ml Balance 480 ml Lab Results Test 07/11/17 08:09 White Blood Count 2.8 TH/MM3 Red Blood Count 3.77 MIL/MM3 Hemoglobin 11.2 GM/DL Hematocrit 34.1 % Mean Corpuscular Volume 90.5 FL Mean Corpuscular Hemoglobin 29.8 PG Mean Corpuscular Hemoglobin Concent 32.9 % Red Cell Distribution Width 16.3 % Platelet Count 310 TH/MM3 Mean Platelet Volume 7.9 FL CBC Comment AUTO DIFF Differential Total Cells Counted 100 Band Neutrophils % 5 % Lymphocytes % 19 % Monocytes % 48 % Eosinophils % 17 % Basophils % 3 % Neutrophils # (Manual) 0.4 TH/MM3 Metamyelocytes 6 % Myelocytes 2 % Differential Comment FINAL DIFF MANUAL Platelet Estimate NORMAL Platelet Morphology Comment NORMAL Prothrombin Time 12.6 SEC Prothromb Time International Ratio 1.2 RATIO Activated Partial Thromboplast Time 25.2 SEC Blood Urea Nitrogen 50 MG/DL Creatinine 6.91 MG/DL Random Glucose 64 MG/DL Calcium Level 8.6 MG/DL Phosphorus Level 2.6 MG/DL Sodium Level 136 MEQ/L Potassium Level 4.2 MEQ/L Chloride Level 93 MEQ/L Carbon Dioxide Level 33.0 MEQ/L Anion Gap 10 MEQ/L Estimat Glomerular Filtration Rate 6 ML/MIN Date/Time Source Procedure Growth Status 07/09/17 13:10 Blood Peripheral Aerobic Blood Culture - Preliminary NO GROWTH IN 2 DAYS Resulted 07/09/17 13:10 Blood Peripheral Anaerobic Blood Culture - Preliminary NO GROWTH IN 2 DAYS Resulted Assessment & Plan Problem List: (1) Acute kidney injury superimposed on chronic kidney disease ICD Codes: N17.9 - Acute kidney failure, unspecified; N18.9 - Chronic kidney disease, unspecified Status: Acute Assessment & Plan: I visited the patient for psychiatric assessment, but she was not present in her room, she was out for a test. I will visited the patient in a letter time. Assessment & Plan Estimated LOS: Richardson Rowe MD Jul 11, 2017 12:35
[2017-07-11] MEDS: EPOETIN ALFA 10,000 UNITS/ML VIAL IV PUSH PRN (12:54)
--- NOTE | 2017-07-11 13:56 | PD.CONS ---
Consult Service Palliative Care Consult Requested By Dr. Watkins. Primary Care Physician Alli Watkins MD Reason for Consultation a. To assist with evaluation and management of symptoms including: Debility. b. To assist medical decision maker(s) with: better understanding of current medical conditions; weighing benefits/burdens of medical treatment options; making medical treatment decisions. . HPI History of Present Illness Mrs. Hylton is a 66-year-old female with a medical history significant for chronic autoimmune neutropenia, end-stage renal disease -HD dependent, COPD, history of lung cancer. Patient presented to the emergency room on 07/09/17 endorsing abdominal discomfort for further previous week. Laboratory workup revealing white blood cell count 1.9, neutrophil 0.3, ANC 42, potassium 5.6, BUN /creatinine 52/8.86. CT of abdomen and pelvis suggested colitis. Nephrology, Dr. Jurado consulted for evaluation and management of end-stage renal disease. Patient to continue renal replacement therapy. GI, Dr. Arias consulted. Patient endorsing constipation, dysphasia, nausea and [place] symptoms. Plan for EGD with colonoscopy on 07/11/17. Hematology/oncology Dr. Jurado consulted on 07/10/17. Patient well-known to hematology given history of autoimmune neutropenia secondary to elevated ALLEN level and anemia of chronic disease. 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 Currently without evidence of disease recurrence. Patient receiving periodic Neupogen and Epogen injections. Clinical course complicated by confusion. Patient started reporting that patient has becoming more confused, forgetful. Palliative care has been consulted for clarifications of goals of care at the request of patient 's daughter. Reviewed patient's past medical history and previous hospitalizations. ED visit 04/17/17 for right-sided abdominal pain. CT abdomen and pelvis negative for acute process, revealing intra-and extrahepatic biliary ductal dilatation. Patient was discharged home. Acute hospitalization 12/21/16 to 12/23/16 with subsequent rehabilitation from 12/23/16 to 01/09/17. Patient presented to ED with complaints of right hip pain after mechanical fall. X-ray revealing intertrochanteric fracture. Patient underwent reduction and intramedullary nail fixation of right hip on 12/21/16. Previous hospitalization 10/24/16 to 11/01 secondary to end-stage renal disease. Patient presented to ED with complaints of malaise, poor appetite, nausea vomiting. AV fistula placed a few weeks prior to ED presentation, wound appeared open. Vascular surgery was consulted, wound VAC to left upper extremity and wound care recommended. Patient was discharged home with recommendations to follow-up with vascular surgery as outpatient. Patient seen in her room. Alert to self, intermittently confused. Endorsing abdominal pain and constipation. Patient's daughter Mariana Barry at bedside. Psychosocial history and past medical history obtained. Reviewed events leading to this acute hospitalization, clinical course and current medical management. Daughter reports that patient has been hemodialysis dependent since October 2016. Reporting progressive decline to include increase assistance with ADLs, patient using walker for ambulation, worsening forgetfulness and confusion. Discussed at length patient's overall poor prognosis given multiple end-stage conditions and profound physical deconditioning. Daughter inquiring regarding hospice. Hospice philosophy and benefits reviewed at length. Daughter wishing to allow an additional 24-48 hours to evaluate patient's clinical status, may consider hospice if clinical condition does not improve or worsen. . Function/Cognitive Trajectory Patient residing with daughter prior to this hospitalization. Ambulating with walker, requiring assistance with ADLs such as bathing and dressing. Profound debility. Dyspnea at rest and exertion, O2 at baseline. Daughter reports that patient has been increasingly forgetful, confused. . Review of Systems ROS Limitations: Altered Mental Status Constitutional: COMPLAINS OF: Change in appetite, DENIES: Fatigue, Fever, Dizziness Endocrine: DENIES: Abnorml menstrual pattern Eyes: DENIES: Eye inflammation, Eye pain Ears, nose, mouth, throat: DENIES: Hearing loss, Nasal discharge, Throat pain Respiratory: DENIES: Apneas, Wheezing, Sputum production Cardiovascular: DENIES: Syncope, Lower Extremity Edema Gastrointestinal: COMPLAINS OF: Abdominal pain, Nausea, Dyspepsia or heartburn , Bloating, DENIES: Vomiting Genitourinary: COMPLAINS OF: Urinary frequency Musculoskeletal: DENIES: Decreased range of motion Integumentary: COMPLAINS OF: Abnormal pigmentation, DENIES: Rash Hematologic/Lymphatics: COMPLAINS OF: Bruising Immunologic/Allergic: DENIES: Eczema Neurologic: DENIES: Headache, Localized weakness, Seizures, Speech Problems Psychiatric: COMPLAINS OF: Anxiety, Confusion, DENIES: Hallucinations, Agitation Past Family Social History Coded Allergies: morphine (Verified Allergy, Severe, RASH, 07/09/17) ciprofloxacin (Verified Adverse Reaction, Intermediate, NAUSEAS, 07/09/17) codeine (Verified Adverse Reaction, Intermediate, Vertigo, 07/09/17) Past Medical History Autoimmune neutropenia End-stage renal disease currently on dialysis Anemia of chronic disease Anxiety Depression Stage 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 Past Surgical History Cholecystectomy Tubal ligation Brain aneurysm stent with cap. Wedge resection for squamous cell carcinoma Tubal ligation Bone marrow biopsy and aspiration AV fistula creation left upper extremities ORIF of the right hip . Reported Medications Oxycodone (Oxycodone HCl) 10 Mg Tab 10 Mg PO Q6HR PRN Xanax (Alprazolam) 1 Mg Tab 1 Mg PO BID PRN Vitamin D3 (Cholecalciferol) 2,000 Unit Cap 2,000 Units PO DAILY Fluoxetine (Fluoxetine HCl) 20 Mg Tab 20 Mg PO DAILY Midodrine 10 Mg Tab 10 Mg PO TID Calcium Acetate (Calcium Acetate (Phosphate Bin) 667 Mg Cap 667 Mg PO TIDPC Famotidine 20 Mg Tab 20 Mg PO DAILY Docusate Sodium 100 Mg Cap 100 Mg PO BID PRN Spiriva Handihaler (Tiotropium Inh) 18 Mcg Cap 18 Mcg INH DAILY 30 Days Gabapentin 100 Mg Cap 100 Mg PO TID Hospital Bed - Electric 1 Ea Ea 1 Ea .ROUTE DIRECTED Wheelchair (Device) 1 Mis Mis 1 Ea .ROUTE DIRECTED Commode 3-in-1 (Device) 1 Mis Mis 1 Ea .ROUTE DIRECTED Walker Rolling/GetGo (Device) 1 Mis Mis 1 Ea .ROUTE DIRECTED Bupropion HCl ER 24 HR (Bupropion HCl) 150 Mg Tab 150 Mg PO DAILY Proair Hfa 8.5 GM Inh (Albuterol Sulfate) 90 Mcg/Act Aer 2 Puff INH Q4-6H PRN Lidopril Topical (Lidocaine-Prilocaine Topical) 2.5-2.5 % Cream 1 Applic TOPICAL BID PRN Zofran (Ondansetron HCl) 4 Mg Tab 4 Mg PO Q6HR PRN Phenergan (Promethazine HCl) 25 Mg Tablet 25 Mg PO Q6H PRN Chantix (Varenicline) 0.5 Mg Tab 0.5 Mg PO DAILY Dialyvite 800 (B-Complex W/ C & Folic Acid) 1 Tab Ventolin Hfa 18 GM Inh (Albuterol Sulfate) 90 Mcg/Act Aer 2 Puff INH Q4-6H PRN Tums (Calcium Carbonate (Antacid)) 500 Mg Chew 500 Mg CHEW PRN Symbicort Inh (Budesonide/Formoterol Fumarate) 160-4.5 Mcg/Act Aero 2 Puff INH Q12HR Mucinex DM (Dextromethorphan-Guaifenesin) 30-600 Mg Tab 2 Tab PO BID PRN Aspirin 81 Mg Chew 81 Mg CHEW DAILY Oxygen tank (Oxygen) 1 Ea Tank 2 Liter EDUARDO.CANULA HS . Current Medications Medications (Trade) Dose Ordered Sig/Carlos Route Start Time Stop Time Status Last Admin (Aspirin Chew) 81 mg DAILY CHEW 07/10/17 09:00 07/11/17 08:46 (Symbicort 160-4.5 Mcg Inh) 2 puff Q12HR INH 07/09/17 21:00 07/11/17 08:49 (Phoslo) 667 mg TIDPC PO 07/09/17 18:30 07/10/17 18:05 (Colace) 100 mg BID PRN PO 07/09/17 13:45 (PROzac) 20 mg DAILY PO 07/10/17 09:00 07/11/17 08:46 (Neurontin) 100 mg TID PO 07/09/17 18:00 07/11/17 08:46 (Emla Cream) 1 applic BID PRN TOPICAL 07/09/17 13:45 (Proamatine) 10 mg TID PO 07/09/17 18:00 07/11/17 08:46 (Phenergan) 25 mg Q6H PRN PO 07/09/17 13:45 (NS Flush) 2 ml UNSCH PRN IV FLUSH 07/09/17 14:00 (NS Flush) 2 ml BID IV FLUSH 07/09/17 21:00 07/11/17 08:46 (Zofran Inj) 4 mg Q6H PRN IVP 07/09/17 14:00 07/09/17 19:46 (Heparin Inj) 5,000 units Q12H SQ 07/09/17 14:00 07/10/17 02:52 (Narcan Inj) 0.4 mg UNSCH PRN IV PUSH 07/09/17 14:00 (Marixa-Colace) 1 tab BID PO 07/09/17 21:00 07/11/17 08:46 (Milk Of Magnesia Liq) 30 ml Q12H PRN PO 07/09/17 14:00 (Senokot) 17.2 mg Q12H PRN PO 07/09/17 14:00 07/10/17 21:21 (Dulcolax Supp) 10 mg DAILY PRN RECTAL 07/09/17 14:00 (Lactulose Liq) 30 ml DAILY PRN PO 07/09/17 14:00 (Catapres) 0.1 mg Q6H PRN PO 07/09/17 14:00 Metronidazole 100 ml @ 100 mls/hr Q12H IV 07/09/17 21:00 07/10/17 08:24 Sodium Chloride 1,000 ml @ 0 mls/hr Q0M PRN OTHER 07/09/17 14:52 (Heparin Inj) 8,000 units UNSCH PRN IV FLUSH 07/09/17 15:00 Sodium Chloride 1,000 ml @ 200 mls/hr Q5H PRN IV 07/09/17 14:52 Sodium Chloride 1,000 ml @ 0 mls/hr Q0M PRN OTHER 07/09/17 14:52 (Mannitol Inj) 12.5 gm UNSCH PRN IV 07/09/17 15:00 07/09/17 17:45 Albumin Human 100 ml @ 60 mls/hr UNSCH PRN IV 07/09/17 15:00 07/09/17 17:46 (NS Flush) 5 ml UNSCH PRN IV FLUSH 07/09/17 15:00 (Heparin Inj) UNSCH PRN .XX 07/09/17 15:00 (Gentamicin (Dialysis) Inj) 20 mg UNSCH PRN OTHER 07/09/17 15:00 (Zofran Inj) 4 mg UNSCH PRN IV PUSH 07/09/17 15:00 07/11/17 12:54 (Tylenol) 650 mg UNSCH PRN PO 07/09/17 15:00 (Benadryl) 25 mg UNSCH PRN PO 07/09/17 15:00 (Nitrostat Sl) 0.4 mg UNSCH PRN SL 07/09/17 15:00 (Catapres) 0.1 mg UNSCH PRN PO 07/09/17 15:00 (Epogen Inj) 4,000 units UNSCH PRN IV PUSH 07/09/17 15:00 07/11/17 12:54 (Gelfoam 12 Mm/7 Mm Top) 1 foam UNSCH PRN TOP 07/09/17 15:00 07/09/17 17:45 (Protonix) 40 mg Q12HR PO 07/09/17 21:00 07/11/17 08:46 (Dilaudid Pf Inj) 0.5 mg Q6H PRN IV PUSH 07/09/17 20:45 07/11/17 08:44 (Habitrol 21 Mg Patch.24 Hr) 1 patch DAILY T-DERMAL 07/10/17 09:00 07/11/17 08:46 Miscellaneous Information 1 HS T-DERMAL 07/09/17 21:00 07/10/17 08:25 (Xanax) 1 mg BID PRN PO 07/09/17 20:45 07/09/17 20:53 Levofloxacin/ Dextrose 50 ml @ 50 mls/hr Q48H IV 07/11/17 21:00 (Duoneb Neb) 1 ampule QID NEB NEB 07/10/17 12:00 07/10/17 21:37 Lactated Ringer's 1,000 ml @ 30 mls/hr Q24H PRN IV 07/10/17 22:00 07/13/17 21:59 Sodium Chloride 500 ml @ 30 mls/hr [id number] PRN IV 07/10/17 22:00 07/13/17 21:59 Family History Mother -leukemia Father -hepatic cirrhosis Brother cancer, unknown type Sister cancer, unknown type . Substance Use Tobacco: Smoker, 1 pack per day for the past 45 years. Alcohol: None reported. Prescription med abuse: None reported. Illicits: None reported. . Psychosocial History Patient originally from [place]. Moved to [place] approximately 2 years ago. Patient is a , has 3 children. Currently residing with daughter Mariana. . Spiritual/Cultural Factors Zoroastrian randall. . Living Will: Completed, but not made available Health Care Surrogate: Copy in medical record Durable Power of Deck Mechanic: Copy in medical record Date completed: 10/08/2013. . Health Care Surrogate(s): Patient designated her daughter Mariana Barry as healthcare surrogate decision maker. . Family/friends goals: No code. DNR/DNI. Allow additional 24-48 hours to evaluate patient's condition. . Ethical and Legal Issues No ethical legal issues identified. . Physical Exam Vital Signs Date Time Temp Pulse Resp B/P (MAP) Pulse Ox O2 Delivery O2 Flow Rate FiO2 07/11/17 07:44 98.0 60 20 122/55 (77) 96 07/11/17 04:00 96.7 67 15 119/60 (79) 97 07/11/17 01:28 70 07/11/17 00:00 96.8 72 15 120/52 (74) 97 07/10/17 21:41 97 21 07/10/17 20:00 96.9 69 15 119/57 (77) 96 07/10/17 16:00 96.7 70 17 116/73 (87) 100 Exam CONSTITUTIONAL/GENERAL: This is an adequately nourished patient, in no apparent distress. TUBES/LINES/DRAINS: PIV's, SCDs. SKIN: No jaundice, rashes, or lesions. Ecchymoses on upper extremities. No wounds seen anteriorly. Skin temperature appropriate. Not diaphoretic. HEAD: Atraumatic. Normocephalic. EYES: Pupils equal and round and reactive. Extraocular motions intact. No scleral icterus. No injection or drainage. ENT: Hearing grossly normal. Nose without bleeding or purulent drainage. Moist oral mucosa. NECK: Trachea midline. Supple, nontender. CARDIOVASCULAR: Regular rate and rhythm without murmurs, gallops, or rubs. No JVD. Peripheral pulses symmetric. RESPIRATORY/CHEST: Symmetric, unlabored respirations. Scattered rhonchi bilaterally. GASTROINTESTINAL: Abdomen distended, tender, round. Bowel sounds present. GENITOURINARY: Without palpable bladder distension. MUSCULOSKELETAL: Extremities without clubbing, cyanosis, or edema. No mottling or clubbing. NEUROLOGICAL: Awake and alert x self, intermittently confused. Follows commands. Moves all extremities. PSYCHIATRIC: Appears calm. . Diagnostic Tests Laboratory Laboratory Tests Test 07/09/17 10:15 07/09/17 13:10 07/11/17 08:09 White Blood Count 1.9 TH/MM3 (4.0-11.0) 2.8 TH/MM3 (4.0-11.0) Red Blood Count 3.80 MIL/MM3 (4.00-5.30) 3.77 MIL/MM3 (4.00-5.30) Hemoglobin 11.6 GM/DL (11.6-15.3) 11.2 GM/DL (11.6-15.3) Hematocrit 35.3 % (35.0-46.0) 34.1 % (35.0-46.0) Mean Corpuscular Volume 93.0 FL (80.0-100.0) 90.5 FL (80.0-100.0) Mean Corpuscular Hemoglobin 30.5 PG (27.0-34.0) 29.8 PG (27.0-34.0) Mean Corpuscular Hemoglobin Concent 32.9 % (32.0-36.0) 32.9 % (32.0-36.0) Red Cell Distribution Width 17.2 % (11.6-17.2) 16.3 % (11.6-17.2) Platelet Count 297 TH/MM3 (150-450) 310 TH/MM3 (150-450) Mean Platelet Volume 7.1 FL (7.0-11.0) 7.9 FL (7.0-11.0) CBC Comment AUTO DIFF AUTO DIFF Differential Total Cells Counted 100 100 Neutrophils % (Manual) 6 % (16-70) Band Neutrophils % 12 % (0-6) 5 % (0-6) Lymphocytes % 14 % (9-44) 19 % (9-44) Monocytes % 46 % (0-8) 48 % (0-8) Eosinophils % 15 % (0-4) 17 % (0-4) Basophils % 7 % (0-2) 3 % (0-2) Neutrophils # (Manual) 0.3 TH/MM3 (1.8-7.7) 0.4 TH/MM3 (1.8-7.7) Differential Comment FINAL DIFF MANUAL FINAL DIFF MANUAL Platelet Estimate NORMAL (NORMAL) NORMAL (NORMAL) Platelet Morphology Comment NORMAL (NORMAL) NORMAL (NORMAL) Red Cell Morphology Comment NORMAL (NORMAL) Blood Urea Nitrogen 52 MG/DL (7-18) 50 MG/DL (7-18) Creatinine 8.86 MG/DL (0.50-1.00) 6.91 MG/DL (0.50-1.00) Random Glucose 92 MG/DL (74-106) 64 MG/DL (74-106) Total Protein 8.3 GM/DL (6.4-8.2) Albumin 3.1 GM/DL (3.4-5.0) Calcium Level 9.5 MG/DL (8.5-10.1) 8.6 MG/DL (8.5-10.1) Alkaline Phosphatase 101 U/L (45-117) Aspartate Amino Transf (AST/SGOT) 30 U/L (15-37) Alanine Aminotransferase (ALT/SGPT) 20 U/L (10-53) Total Bilirubin 0.9 MG/DL (0.2-1.0) Sodium Level 135 MEQ/L (136-145) 136 MEQ/L (136-145) Potassium Level 5.6 MEQ/L (3.5-5.1) 4.2 MEQ/L (3.5-5.1) Chloride Level 103 MEQ/L (98-107) 93 MEQ/L (98-107) Carbon Dioxide Level 23.7 MEQ/L (21.0-32.0) 33.0 MEQ/L (21.0-32.0) Anion Gap 8 MEQ/L (5-15) 10 MEQ/L (5-15) Estimat Glomerular Filtration Rate 4 ML/MIN (>89) 6 ML/MIN (>89) Lipase 56 U/L (73-393) Lactic Acid Level 0.7 mmol/L (0.4-2.0) Metamyelocytes 6 % (0-1) Myelocytes 2 % (0-0) Prothrombin Time 12.6 SEC (9.8-11.6) Prothromb Time International Ratio 1.2 RATIO Activated Partial Thromboplast Time 25.2 SEC (24.3-30.1) Phosphorus Level 2.6 MG/DL (2.5-4.9) Result Diagram: 07/11/17 0809 07/11/17 0809 Microbiology Microbiology Date/Time Source Procedure Growth Status 07/09/17 13:10 Blood Peripheral Aerobic Blood Culture - Preliminary NO GROWTH IN 2 DAYS Resulted 07/09/17 13:10 Blood Peripheral Anaerobic Blood Culture - Preliminary NO GROWTH IN 2 DAYS Resulted 07/09/17 13:05 Blood Peripheral Aerobic Blood Culture - Preliminary NO GROWTH IN 2 DAYS Resulted 07/09/17 13:05 Blood Peripheral Anaerobic Blood Culture - Preliminary NO GROWTH IN 2 DAYS Resulted Imaging Last Impressions Hip and Pelvis X-Ray 07/11/17 0000 Signed Impressions: Service Date/Time: June 09:19 - CONCLUSION: Unremarkable examination of the right hip status post previous fixation. No acute fracture is seen. Uche Jalloh MD Abdomen/Pelvis CT 07/09/17 0000 Signed Impressions: Service Date/Time: Sunday, July 09, 2017 10:51 - CONCLUSION: Abnormal colon along segment 8-9 cm distal descending colon proximal sigmoid colon with concentric bowel wall thickening and some inflammatory changes in the pericolonic fat which suggests colitis. Otherwise stable abdomen with prior cholecystectomy and chronic dilatation of intrahepatic bile ducts. Punctate calcifications in the pancreatic head are unchanged. Progressive consolidation with air bronchograms in the left lower lobe additionally appreciated Ish Dalton MD Procedures * 07/11/16 -EGD with colonoscopy Patient/Family Conference Present at Family Conference: Daughter Mariana Barry. . Family Conference Time (mins): 44 Family Conference Location: Bedside Issues Discussed: * Palliative care role, purpose, approach * Additional medical, psychosocial, and spiritual history * Patients general health, functional status, and cognitive changes in the months leading up to the current hospitalization * Patient/family understanding of the current medical problems * Patient/family understanding of prognosis * Patients goals of care as best understood from advance directives and/or conversations and/or values * Current medical treatment options and benefits/burdens of those options * Likely scenarios comparing ongoing aggressive care with a transition to comfort measures only * Questions answered to the best of my ability * Palliative care contact information provided * Hospice philosophy and benefits Assessment and Plan Disease Oriented Problem List: (1) Neutropenia (2) ESRD (end stage renal disease) (3) COPD (chronic obstructive pulmonary disease) (4) Constipation due to opioid therapy (5) Colitis Symptom Scale: (1) Shortness of breath (2) Constipation (3) Debility Pertinent Non-Medical Issues Psychosocial: Patient originally from [place]. Moved to [place] approximately 2 years ago. Patient is a , has 3 children. Currently residing with daughter Mariana. Spiritual: Zoroastrian randall. Legal: Advance directives completed. Ethical issues impacting care: No ethical issues identified. . Important Contacts Daughter/healthcare surrogate Mariana Barry , . . Prognosis Mrs. Hylton is a 66-year-old female with a medical history significant for chronic autoimmune neutropenia, end-stage renal disease -HD dependent, end- stage COPD, history of lung cancer. Patient with progressive decline and multiple hospitalizations within the past 12 months. Overall prognosis appears poor given the multiple end-stage conditions, acute events and profound physical deconditioning. Patient appears hospice appropriate and should patient /family elects comfort-directed care. Patient high risk for further complications, continue decline and . . Code Status: No Code Plan * CODE STATUS: No code. DNR/DNI. Patient's daughter reports that patient has a community DNR. * HEALTHCARE DECISION-MAKING: Patient with limited participation in medical decision-making secondary to intermittent confusion. Pending psych evaluation for capacity. Advanced directives completed. Patient has elected her daughter Mariana Barry as healthcare surrogate decision maker. * GOALS OF CARE: Ongoing. Patient's daughter wishing to allow additional 24-48 hours to evaluate patient's clinical condition. May consider hospice services should patient's clinical condition does not improve or worsen. * SYMPTOMS: = Shortness of breath: Patient with COPD, emphysema. History lung cancer currently in remission. O2 at home at baseline. Currently tolerating nasal cannula. =Debility, progressive since October 2016. Secondary to multiple ongoing chronic comorbidities. Likely to continue to worsen. = Constipation: GI following. Patient pending EGD with colonoscopy. CT suggesting colitis. * Palliative care contact information has been provided to patient's daughter. * Palliative care will continue to follow-up for further clarifications of goals of care as patient's clinical course continues to evolve. . Time Spent Total Floor Time (mins): 68 (Total time to include review and summarization of available medical records to include prior hospitalizations, physical exam, goals of care conversation with patient and daughter.) >50% Counseling/Coord of Care: Yes Thank you for the opportunity to participate in the care of Ms. Hylton. Attestation To help prompt me to consider important information that might be impacting today's encounter and assessment, information from prior notes written by myself or my colleagues may have been "brought forward" into today's note. My signature on this note, however, is an attestation that I personally performed the exam, history, and/or decision-making noted today, and, unless otherwise indicated, the interactions with patient, family, and staff as well as the review of records all occurred today. I also attest that the listed assessment and stated plan reflect my best clinical judgment today based on the combination of historical information, prior notes, and today's exam/ interactions. When time spent is documented, it refers only to time spent today by the signer, or if indicated, combined time spent today by collaborating physician/nurse practitioner. Mary Ly Jul 11, 2017 13:56
[2017-07-11] MEDS: HEPARIN SODIUM - SQ 10,000 UNITS/ML VIAL SQ SCH (14:00)
[2017-07-11] MEDS: SODIUM CHLORID 0.9% 500 ML IV PRN ×2 (14:09→16:50)
[2017-07-11 20:00] VITALS: BP 136/60; PULSE 78; RESP 20; TEMP 98.1; O2SAT 94
[2017-07-11] MEDS ORDERED: LEVOFLOXACIN/DEXTROSE 250 MG/50 ML IV SCH (21:00)
[2017-07-11 21:09] VITALS: O2SAT 96
--- NOTE | 2017-07-11 21:10 | PD.PROCEDR ---
GI Procedure PROCEDURE PERFORMED EGD with biopsy followed by colonoscopy with biopsy INDICATION FOR PROCEDURE Abnormal looking colon on CT suggestive colitis, constipation, anemia PROCEDURE: The procedure, risks and benefits were discussed with Ms. Hylton and informed consent was obtained. Anesthesia sedated her with Diprivan. She was placed in the left lateral decubitus position. EGD: The Pentax videoscope was introduced through the oropharynx and advanced to the second portion of the duodenum under direct visualization. Retroflexion was performed in the stomach. FINDINGS: The esophagus this appeared to be normal The stomach there was patchy erythema in the antrum but no ulceration or erosions no blood or bleeding the rest of the gastric mucosa unremarkable antral biopsies were taken for further evaluation The duodenum this appeared to be unremarkable normal limits Colonoscopy: The Pentax videoscope was introduced through the rectum and advanced to the ascending colon mainly due to poor prep. Retroflexion was performed in the rectum. Colonic prep was poor prep FINDINGS: As the scope was slowly withdrawn colonic mucosa was carefully inspected this was a limited examination due to copious amount of thick stool ball most importantly were ulcerations fairly wide based in the proximal sigmoid of unclear significance multiple biopsies were taken continuing down the colon also noted mild diverticulosis of the sigmoid otherwise colonic examination was unremarkable so as retroflexion and rectal examination ESTIMATED BLOOD LOSS: None SPECIMENS REMOVED: Antral and colon biopsies COMPLICATIONS: None IMPRESSION: Mild gastritis Colitis with colon ulcerations in the sigmoid PLAN: Await biopsies Continue with current supportive care Monitor labs and transfuse if needed Recommend repeat colonoscopy in 3 months Jarvis Arias MD Jul 11, 2017 21:10
[2017-07-11] MEDS: REMOVE OLD NICODERM (NICOTINE) PATCH T-DERMAL SCH (21:50)
[2017-07-12] VITALS: BP 118/59; PULSE 70; RESP 18; TEMP 98.4; O2SAT 95
[2017-07-12] MEDS: HEPARIN SODIUM - SQ 10,000 UNITS/ML VIAL SQ SCH ×2 (03:25→14:00)
[2017-07-12 04:00] VITALS: BP 113/58; PULSE 74; RESP 16; TEMP 98.1; O2SAT 94
[2017-07-12] MEDS: HYDROmorphone HCL PF 2 MG/ML VIAL IV PUSH PRN ×3 (05:33→20:31)
[2017-07-12 07:52] VITALS: BP 109/53; PULSE 75; RESP 19; TEMP 97.2; O2SAT 94
[2017-07-12] MEDS: RESP: ALBUTEROL 2.5 MG/IPRATROPIUM 0.5 MG NEB (SCH) NEB ×4 (07:52→21:36)
[2017-07-12 08:41] LABS: HEMATOCRIT 33.1 % (35.0-46.0); HEMOGLOBIN 10.8 GM/DL (11.6-15.3); MEAN CELL VOLUME 91.4 FL (80.0-100.0); MEAN CORPUSCULAR HEMOGLOBIN 29.9 PG (27.0-34.0); MEAN CORPUSCULAR HGB CONC 32.7 % (32.0-36.0); MEAN PLATELET VOLUME 7.9 FL (7.0-11.0); PLATELET COUNT 297 TH/MM3 (150-450); RED BLOOD COUNT 3.62 MIL/MM3 (4.00-5.30); RED CELL DISTRIBUTION WIDTH 16.8 % (11.6-17.2); WHITE BLOOD COUNT 2.2 TH/MM3 (4.0-11.0)
[2017-07-12] MEDS: PANTOPRAZOLE SOD 40 MG DELAYED RELEASE TAB PO SCH ×2 (09:00→20:31)
[2017-07-12] MEDS: metroNIDAZOLE 500 MG INJ 100 ML IV SCH ×3 (09:01→20:30)
[2017-07-12] MEDS: NICOTINE 21 MG/24 HR PATCH T-DERMAL SCH (09:02)
[2017-07-12] MEDS: GABAPENTIN 100 MG CAP PO SCH ×3 (09:03→18:12)
[2017-07-12] MEDS: SODIUM CHLORIDE 0.9% FLUSH 10 ML FLUSH IV FLUSH SCH ×2 (09:03→20:31)
[2017-07-12] MEDS: DOCUSATE SODIUM 50 MG/SENNA 8.6 MG TAB PO SCH ×2 (09:03→20:31)
[2017-07-12] MEDS: FLUoxetine HCL 20 MG CAP PO SCH (09:03)
[2017-07-12] MEDS: ASPIRIN 81 MG CHEW TAB CHEW SCH (09:03)
[2017-07-12] MEDS: MIDODRINE 5 MG TAB PO SCH ×3 (09:03→18:12)
[2017-07-12] MEDS: BUDESONIDE-FORMOTEROL 160/4.5 MCG INHALER INH SCH ×2 (09:04→20:30)
[2017-07-12] MEDS: CALCIUM ACETATE 667 MG CAP PO SCH ×3 (09:04→18:12)
--- NOTE | 2017-07-12 09:40 | HHI.FPPN ---
Subjective Remarks asking for PO fluids c/o abdom pain c/o weakness she looks better today, very alert and sitting up d/w RN Objective Vitals Vital Signs Date Time Temp Pulse Resp B/P (MAP) Pulse Ox O2 Delivery O2 Flow Rate FiO2 07/12/17 07:52 97.2 75 19 109/53 (71) 94 07/12/17 04:00 98.1 74 16 113/58 (76) 94 07/12/17 00:00 98.4 70 18 118/59 (78) 95 07/11/17 21:09 96 21 07/11/17 20:00 98.1 78 20 136/60 (85) 94 07/11/17 17:25 97.8 78 18 119/56 (77) 96 07/11/17 17:25 97.8 76 18 96/68 (77) 96 I/O 07/11/17 07/11/17 07/11/17 07/12/17 07/12/17 07/12/17 07:00 15:00 23:00 07:00 15:00 23:00 Intake Total 480 ml 150 ml 120 ml Balance 480 ml 150 ml 120 ml Intake Oral 480 ml 120 ml IV Total 150 ml # Voids 3 # Bowel Movements 0 1 Result Diagram: 07/12/17 0656 07/11/17 0809 Objective Remarks GENERAL: SKIN: Warm and dry. HEAD: Atraumatic. Normocephalic. EYES: Pupils equal and round. No scleral icterus. No injection or drainage. ENT: No nasal bleeding or discharge. Mucous membranes pink and moist. NECK: Trachea midline. No JVD. CARDIOVASCULAR: Regular rate and rhythm. RESPIRATORY: No accessory muscle use. bilat rales and ronchi. Breath sounds equal bilaterally. GASTROINTESTINAL: Abdomen soft, non-tender, nondistended. Hepatic and splenic margins not palpable. MUSCULOSKELETAL: Extremities without clubbing, cyanosis, or edema. No obvious deformities. NEUROLOGICAL: Awake and alert. No obvious cranial nerve deficits. Motor grossly within normal limits. 2 out of 5 muscle strength in the arms and legs. Normal speech. PSYCHIATRIC: Appropriate mood and affect; insight and judgment normal. Medications and IVs Current Medications Medications (Trade) Dose Ordered Sig/Carlos Route Start Time Stop Time Status Last Admin (Aspirin Chew) 81 mg DAILY CHEW 07/10/17 09:00 07/12/17 09:03 (Symbicort 160-4.5 Mcg Inh) 2 puff Q12HR INH 07/09/17 21:00 07/12/17 09:04 (Phoslo) 667 mg TIDPC PO 07/09/17 18:30 07/12/17 09:04 (Colace) 100 mg BID PRN PO 07/09/17 13:45 (PROzac) 20 mg DAILY PO 07/10/17 09:00 07/12/17 09:03 (Neurontin) 100 mg TID PO 07/09/17 18:00 07/12/17 09:03 (Emla Cream) 1 applic BID PRN TOPICAL 07/09/17 13:45 (Proamatine) 10 mg TID PO 07/09/17 18:00 07/12/17 09:03 (Phenergan) 25 mg Q6H PRN PO 07/09/17 13:45 (NS Flush) 2 ml UNSCH PRN IV FLUSH 07/09/17 14:00 (NS Flush) 2 ml BID IV FLUSH 07/09/17 21:00 07/12/17 09:03 (Zofran Inj) 4 mg Q6H PRN IVP 07/09/17 14:00 07/09/17 19:46 (Heparin Inj) 5,000 units Q12H SQ 07/09/17 14:00 07/12/17 03:25 (Narcan Inj) 0.4 mg UNSCH PRN IV PUSH 07/09/17 14:00 (Marixa-Colace) 1 tab BID PO 07/09/17 21:00 07/12/17 09:03 (Milk Of Magnesia Liq) 30 ml Q12H PRN PO 07/09/17 14:00 (Senokot) 17.2 mg Q12H PRN PO 07/09/17 14:00 07/10/17 21:21 (Dulcolax Supp) 10 mg DAILY PRN RECTAL 07/09/17 14:00 (Lactulose Liq) 30 ml DAILY PRN PO 07/09/17 14:00 (Catapres) 0.1 mg Q6H PRN PO 07/09/17 14:00 Metronidazole 100 ml @ 100 mls/hr Q12H IV 07/09/17 21:00 07/12/17 09:01 Sodium Chloride 1,000 ml @ 0 mls/hr Q0M PRN OTHER 07/09/17 14:52 (Heparin Inj) 8,000 units UNSCH PRN IV FLUSH 07/09/17 15:00 Sodium Chloride 1,000 ml @ 200 mls/hr Q5H PRN IV 07/09/17 14:52 Sodium Chloride 1,000 ml @ 0 mls/hr Q0M PRN OTHER 07/09/17 14:52 (Mannitol Inj) 12.5 gm UNSCH PRN IV 07/09/17 15:00 07/09/17 17:45 Albumin Human 100 ml @ 60 mls/hr UNSCH PRN IV 07/09/17 15:00 07/09/17 17:46 (NS Flush) 5 ml UNSCH PRN IV FLUSH 07/09/17 15:00 (Heparin Inj) UNSCH PRN .XX 07/09/17 15:00 (Gentamicin (Dialysis) Inj) 20 mg UNSCH PRN OTHER 07/09/17 15:00 (Zofran Inj) 4 mg UNSCH PRN IV PUSH 07/09/17 15:00 07/11/17 12:54 (Tylenol) 650 mg UNSCH PRN PO 07/09/17 15:00 (Benadryl) 25 mg UNSCH PRN PO 07/09/17 15:00 (Nitrostat Sl) 0.4 mg UNSCH PRN SL 07/09/17 15:00 (Catapres) 0.1 mg UNSCH PRN PO 07/09/17 15:00 (Epogen Inj) 4,000 units UNSCH PRN IV PUSH 07/09/17 15:00 07/11/17 12:54 (Gelfoam 12 Mm/7 Mm Top) 1 foam UNSCH PRN TOP 07/09/17 15:00 07/09/17 17:45 (Protonix) 40 mg Q12HR PO 07/09/17 21:00 07/12/17 09:00 (Dilaudid Pf Inj) 0.5 mg Q6H PRN IV PUSH 07/09/17 20:45 07/12/17 05:33 (Habitrol 21 Mg Patch.24 Hr) 1 patch DAILY T-DERMAL 07/10/17 09:00 07/12/17 09:02 Miscellaneous Information 1 HS T-DERMAL 07/09/17 21:00 07/11/17 21:50 (Xanax) 1 mg BID PRN PO 07/09/17 20:45 07/09/17 20:53 Levofloxacin/ Dextrose 50 ml @ 50 mls/hr Q48H IV 07/11/17 21:00 07/11/17 21:47 (Duoneb Neb) 1 ampule QID NEB NEB 07/10/17 12:00 07/12/17 07:52 Lactated Ringer's 1,000 ml @ 30 mls/hr Q24H PRN IV 07/10/17 22:00 07/13/17 21:59 Sodium Chloride 500 ml @ 30 mls/hr [id number] PRN IV 07/10/17 22:00 07/13/17 21:59 07/11/17 14:09 A/P Assessment and Plan ASSESSMENT/PLAN 1. Colitis: IV antibiotic, colonoscopy Jul [address] Rush showed Mild gastritis Colitis with colon ulcerations in the sigmoid 2. End-stage renal disease. Continue dialysis per Dr Jurado 3. Pneumonia: IV antibiotics, DuoNebs q.i.d. 4. Squamous cell cancer of the lung. 5. Anemia secondary to renal failure: Continue Epogen with Hemodialysis. 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 Angel Ugadle. He has been consulted and is following. 7. Active smoker 8. Emphysema 9. 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 Consult to GI, medical oncology and nephrology. 12. GI prophylaxis on PPI 13. DVT prophylaxis on heparin 5000 units q.12 h 14. Physical therapy palliative consult per daughter request, she is interested in hospice Alli Watkins MD Jul 12, 2017 09:40
[2017-07-12 12:00] VITALS: BP 120/59; PULSE 72; RESP 19; TEMP 97.2; O2SAT 94
--- NOTE | 2017-07-12 12:23 | HHI.HCPN ---
Reason for visit a. To assist with evaluation and management of symptoms including: Debility. b. To assist medical decision maker(s) with: better understanding of current medical conditions; weighing benefits/burdens of medical treatment options; making medical treatment decisions. . Subjective/Interval History Palliative care follow-up for further clarifications of goals of care. Patient seen in her room, she was resting in bed in no acute distress. Alert and oriented x self, place and situation. Verbal, able to communicate needs. Patient found more interactive and alert than yesterday. Endorsing intermittent abdominal pain that is more crampy in nature. Denies shortness of breath, nausea vomiting or any other complaint. Patient reports her appetite has improved since yesterday, ate most of her breakfast today. Full bowel movements yesterday, patient verbalized feeling relieved. Patient underwent EGD with biopsy and colonoscopy with biopsy yesterday, findings to include mild gastritis and colitis with colon ulceration in sigmoid. Laboratory workup today revealing WBC 2.2, Hgb is stable at 10.8, platelet count 297. BUN/ creatinine 50/6.91. Patient underwent hemodialysis yesterday. Patient remains afebrile, stable hemodynamically. Tolerating room air. Oxygen saturation in the mid 90s. Goals of care conversation with patient and daughter Mariana Barry. Patient tells me that she still feels that she has a good quality of life. Her goal is to return home with daughter. Patient wishing to continue with hemodialysis outpatient as well as following up with her multiple doctors appointments. Patient receptive to hospice should her clinical condition continues to worsen or there is additional functional decline. Assisted patient with completion of community DNR. . Family/friend interactions See interval note. . Advance Directives Living Will: Completed, but not made available Health Care Surrogate: Copy in medical record Durable Power of Legal Instructor: Copy in medical record Advance Directive Specifics Date completed: 10/08/2013. . Health Care Surrogate(s): Patient designated her daughter Mariana Barry as healthcare surrogate decision maker. . Significant change in goals: No code. DNR/DNI. Patient electing to continue aggressive management short of no code. . Objective Vital Signs Date Time Temp Pulse Resp B/P (MAP) Pulse Ox O2 Delivery O2 Flow Rate FiO2 07/12/17 07:52 97.2 75 19 109/53 (71) 94 07/12/17 04:00 98.1 74 16 113/58 (76) 94 07/12/17 00:00 98.4 70 18 118/59 (78) 95 07/11/17 21:09 96 21 07/11/17 20:00 98.1 78 20 136/60 (85) 94 18 17:25 97.8 78 18 119/56 (77) 96 07/11/17 17:25 97.8 76 18 96/68 (77) 96 Intake & Output 07/12/17 07/12/17 07:00 19:00 Intake Total 150 ml 120 ml Balance 150 ml 120 ml Intake Oral 120 ml IV Total 150 ml Physical Exam CONSTITUTIONAL/GENERAL: This is an adequately nourished patient, in no apparent distress. TUBES/LINES/DRAINS: PIV's, SCDs. SKIN: No jaundice, rashes, or lesions. Ecchymoses on upper extremities. No wounds seen anteriorly. Skin temperature appropriate. Not diaphoretic. HEAD: Atraumatic. Normocephalic. EYES: Pupils equal and round and reactive. Extraocular motions intact. No scleral icterus. No injection or drainage. ENT: Hearing grossly normal. Nose without bleeding or purulent drainage. Moist oral mucosa. NECK: Trachea midline. Supple, nontender. CARDIOVASCULAR: Regular rate and rhythm without murmurs, gallops, or rubs. No JVD. Peripheral pulses symmetric. RESPIRATORY/CHEST: Symmetric, unlabored respirations. Scattered rhonchi bilaterally. GASTROINTESTINAL: Abdomen distended, tender, round. Bowel sounds present. GENITOURINARY: Without palpable bladder distension. MUSCULOSKELETAL: Extremities without clubbing, cyanosis, or edema. No mottling or clubbing. NEUROLOGICAL: Awake and alert x self, place and situation. Verbal. Follows commands. Moves all extremities. PSYCHIATRIC: Appears calm. . Diagnostic Tests Laboratory Laboratory Tests Test 07/09/17 13:10 07/11/17 08:09 07/12/17 06:56 Lactic Acid Level 0.7 mmol/L (0.4-2.0) White Blood Count 2.8 TH/MM3 (4.0-11.0) 2.2 TH/MM3 (4.0-11.0) Red Blood Count 3.77 MIL/MM3 (4.00-5.30) 3.62 MIL/MM3 (4.00-5.30) Hemoglobin 11.2 GM/DL (11.6-15.3) 10.8 GM/DL (11.6-15.3) Hematocrit 34.1 % (35.0-46.0) 33.1 % (35.0-46.0) Mean Corpuscular Volume 90.5 FL (80.0-100.0) 91.4 FL (80.0-100.0) Mean Corpuscular Hemoglobin 29.8 PG (27.0-34.0) 29.9 PG (27.0-34.0) Mean Corpuscular Hemoglobin Concent 32.9 % (32.0-36.0) 32.7 % (32.0-36.0) Red Cell Distribution Width 16.3 % (11.6-17.2) 16.8 % (11.6-17.2) Platelet Count 310 TH/MM3 (150-450) 297 TH/MM3 (150-450) Mean Platelet Volume 7.9 FL (7.0-11.0) 7.9 FL (7.0-11.0) CBC Comment AUTO DIFF Differential Total Cells Counted 100 Band Neutrophils % 5 % (0-6) Lymphocytes % 19 % (9-44) Monocytes % 48 % (0-8) Eosinophils % 17 % (0-4) Basophils % 3 % (0-2) Neutrophils # (Manual) 0.4 TH/MM3 (1.8-7.7) Metamyelocytes 6 % (0-1) Myelocytes 2 % (0-0) Differential Comment FINAL DIFF MANUAL Platelet Estimate NORMAL (NORMAL) Platelet Morphology Comment NORMAL (NORMAL) Prothrombin Time 12.6 SEC (9.8-11.6) Prothromb Time International Ratio 1.2 RATIO Activated Partial Thromboplast Time 25.2 SEC (24.3-30.1) Blood Urea Nitrogen 50 MG/DL (7-18) Creatinine 6.91 MG/DL (0.50-1.00) Random Glucose 64 MG/DL (74-106) Calcium Level 8.6 MG/DL (8.5-10.1) Phosphorus Level 2.6 MG/DL (2.5-4.9) Sodium Level 136 MEQ/L (136-145) Potassium Level 4.2 MEQ/L (3.5-5.1) Chloride Level 93 MEQ/L (98-107) Carbon Dioxide Level 33.0 MEQ/L (21.0-32.0) Anion Gap 10 MEQ/L (5-15) Estimat Glomerular Filtration Rate 6 ML/MIN (>89) Result Diagram: 07/12/17 0656 07/11/17 0809 Microbiology Microbiology Date/Time Source Procedure Growth Status 07/09/17 13:10 Blood Peripheral Aerobic Blood Culture - Preliminary NO GROWTH IN 3 DAYS Resulted 07/09/17 13:10 Blood Peripheral Anaerobic Blood Culture - Preliminary NO GROWTH IN 3 DAYS Resulted 07/09/17 13:05 Blood Peripheral Aerobic Blood Culture - Preliminary NO GROWTH IN 3 DAYS Resulted 07/09/17 13:05 Blood Peripheral Anaerobic Blood Culture - Preliminary NO GROWTH IN 3 DAYS Resulted Procedures * 07/11/16 -EGD with colonoscopy, Biopsy. Assessment and Plan Disease Oriented Problem List: (1) Neutropenia (2) ESRD (end stage renal disease) (3) COPD (chronic obstructive pulmonary disease) (4) Constipation due to opioid therapy (5) Colitis Symptom Scale: (1) Shortness of breath 0-10 Scale: Unable to quantify (2) Constipation 0-10 Scale: Unable to quantify (3) Debility 0-10 Scale: Unable to quantify Pertinent Non-Medical Issues Psychosocial: Patient originally from [place]. Moved to [place] approximately 2 years ago. Patient is a , has 3 children. Currently residing with daughter Mariana. Spiritual: [employer]. Legal: Advance directives completed. Ethical issues impacting care: No ethical issues identified. . Important Contacts Daughter/healthcare surrogate Mariana Barry , . . Prognosis Mrs. Hylton is a 66-year-old female with a medical history significant for chronic autoimmune neutropenia, end-stage renal disease -HD dependent, end- stage COPD, history of lung cancer. Patient with progressive decline and multiple hospitalizations within the past 12 months. Overall prognosis appears poor given the multiple end-stage conditions, acute events and profound physical deconditioning. Patient appears hospice appropriate and should patient /family elects comfort-directed care. Patient high risk for further complications, continue decline and . . Code Status: No Code Plan * CODE STATUS: No code. DNR/DNI. Assisted patient with completion of community DNR. * HEALTHCARE DECISION-MAKING: Patient found alert and oriented x self, place and situation. Appears to retain medical decision-making capacity. Pending psych evaluation for capacity. Advanced directives completed. Patient has elected her daughter Mariana Barry as healthcare surrogate decision maker. * GOALS OF CARE: Patient, supported by daughter, has elected to continue aggressive management short of no code. Patient tells me that she still feels that she has a good quality of life. Her goal is to return home with daughter, is active to rehabilitation for physical strengthening. Patient wishing to continue with hemodialysis outpatient as well as following up with her multiple doctors appointments. Patient receptive to hospice should her clinical condition continues to worsen or there is additional functional decline. * SYMPTOMS: = Shortness of breath: Patient with COPD, emphysema. History lung cancer currently in remission. O2 at home at baseline. Currently tolerating nasal cannula. =Debility, progressive since October 2016. Secondary to multiple ongoing chronic comorbidities. PT following, PT at rehab recommended. = Constipation: GI following. Resolved status post colonoscopy. Docusate sodium , senna, bisacodyl suppository and lactulose available as needed. * Palliative care contact information has been provided to patient's daughter. * Palliative care will continue to follow-up as needed for further clarifications of goals of care as patient's clinical course continues to evolve. . Time Spent Total Floor Time (mins): 41 (Total time to include review of medical records, physical exam, goals of care conversation with patient and daughter, assistance with completion of community DNR.) >50% Counseling/Coord of Care: Yes Attestation To help prompt me to consider important information that might be impacting today's encounter and assessment, information from prior notes written by myself or my colleagues may have been "brought forward" into today's note. My signature on this note, however, is an attestation that I personally performed the exam, history, and/or decision-making noted today, and, unless otherwise indicated, the interactions with patient, family, and staff as well as the review of records all occurred today. I also attest that the listed assessment and stated plan reflect my best clinical judgment today based on the combination of historical information, prior notes, and today's exam/ interactions. When time spent is documented, it refers only to time spent today by the signer, or if indicated, combined time spent today by collaborating physician/nurse practitioner. Mary Ly Jul 12, 2017 12:23
--- NOTE | 2017-07-12 12:46 | PD.PSY.CON ---
Provisional Diagnosis Admission Date Jul 09, 2017 at 12:48 [place] I. Delirium due to an underlying medical condition, history of depression and anxiety History of Present Illness Service Psychiatry Consult Requested By Medical team Reason for Consult Assess decision-making capacity Primary Care Physician Alli Watkins MD HPI The patient is a is a 66-year-old woman, domiciled in [place] with her daughter, supported by Social Security, with psychiatric history of depression and anxiety, 1 previous psychiatric hospitalization many years ago, she is in Prozac 20 mg and Xanax 1 mg 3 times a day managed by outpatient PCP, no previous suicidal attempts, with a extensive medical history significant for chronic autoimmune neutropenia, end-stage renal disease -HD dependent, end- stage COPD, history of lung cancer. Patient with progressive decline and multiple hospitalizations within the past 12 months. Hospitalized due to Colitis and Mild gastritis. Colitis with colon ulcerations in the sigmoid. Patient consulted to psychiatry to assess her decision-making capacity. On psychiatric evaluation today the patient is calm, cooperative, pleasant. The patient reports that she feels much better today. She reports good mood, denies depression, and denies anhedonia, denies hopelessness, helplessness, worthlessness, she denies suicidal or homicidal ideation, she denies visual and auditory hallucinations. The patient is logical, she is coherent and relevant. She is fully oriented 3. Patient is able to verbalize a fair understanding of her reason of her hospitalization, she was able to list most of her current medical conditions, her choice is to stay in the hospital and continue medical treatment, even though she preferred to be discharged as soon as she is able to go home. Patient also was able to clarify that in case she is confused or unconscious, the person to make decisions for her would be her daughter Mariana Lopez. The patient denies the use of illegal drugs and alcohol. Review of Systems Constitutional: DENIES: Diaphoretic episodes, Fatigue, Fever, Weight gain, Weight loss, Chills, Dizziness, Change in appetite, Night Sweats Endocrine: DENIES: Abnorml menstrual pattern, Heat/cold intolerance, Polydipsia , Polyuria, Polyphagia Eyes: DENIES: Blurred vision, Diplopia, Eye inflammation, Eye pain, Vision loss , Photosensitivity, Double Vision Ears, nose, mouth, throat: DENIES: Tinnitus, Hearing loss, Vertigo, Nasal discharge, Oral lesions, Throat pain, Hoarseness, Ear Pain, Running Nose, Epistaxis, Sinus Pain, Toothache, Odynophagia Respiratory: DENIES: Apneas, Cough, Snoring, Wheezing, Hemoptysis, Sputum production, Shortness of breath Cardiovascular: DENIES: Chest pain, Palpitations, Syncope, Dyspnea on Exertion , PND, Lower Extremity Edema, Orthopnea, Claudication Gastrointestinal: DENIES: Abdominal pain, Black stools, Bloody stools, Constipation, Diarrhea, Nausea, Vomiting, Difficulty Swallowing, Anorexia Genitourinary: DENIES: Abnormal vaginal bleeding, Dysmenorrhea, Dyspareunia, Sexual dysfunction, Urinary frequency, Urinary incontinence, Urgency, Hematuria , Dysuria, Nocturia, Vaginal discharge Musculoskeletal: DENIES: Joint pain, Muscle aches, Stiffness, Joint Swelling, Back pain, Neck pain Integumentary: DENIES: Abnormal pigmentation, Pruritus, Rash, Nail changes, Breast masses, Breast skin changes, Nipple discharge Hematologic/lymphatic: DENIES: Bruising, Lymphadenopathy Immunologic/allergic: DENIES: Eczema, Urticaria Neurologic: DENIES: Abnormal gait, Headache, Localized weakness, Paresthesias, Seizures, Speech Problems, Tremor, Poor Balance Psychiatric: DENIES: Anxiety, Confusion, Mood changes, Depression, Hallucinations, Agitation, Suicidal Ideation, Homicidal Ideation, Delusions Past Family Social History Coded Allergies: morphine (Verified Allergy, Severe, RASH, 07/09/17) ciprofloxacin (Verified Adverse Reaction, Intermediate, NAUSEAS, 07/09/17) codeine (Verified Adverse Reaction, Intermediate, Vertigo, 07/09/17) Active Scripts Oxycodone (Oxycodone) 10 Mg Tab, 10 MG PO Q6HR Y for PAIN SCALE 1 TO 10, #90 TAB 0 Refills Prov:Binu Dave MD 01/07/17 Alprazolam (Xanax) 1 Mg Tab, 1 MG PO BID Y for ANXIETY, #60 TAB Prov:Binu Dave MD 01/07/17 Cholecalciferol (Vitamin D3) 2,000 Unit Cap, 2000 UNITS PO DAILY for Nutritional Supplement, #30 BOTTLE 0 Refills Prov:Binu Dave MD 01/07/17 Fluoxetine (Fluoxetine) 20 Mg Tab, 20 MG PO DAILY, #30 TAB 0 Refills Prov:Binu Dave MD 01/07/17 Midodrine (Midodrine) 10 Mg Tab, 10 MG PO TID for Control Low Blood Pressure, # 90 TAB 0 Refills Prov:Binu Dave MD 01/07/17 Calcium Acetate (Phosphate Bin (Calcium Acetate) 667 Mg Cap, 667 MG PO TIDPC for dialysis, #90 CAP 3 Refills Prov:Binu Dave MD 01/07/17 Famotidine (Famotidine) 20 Mg Tab, 20 MG PO DAILY, #30 TAB 0 Refills Prov:Binu Dave MD 01/07/17 Docusate Sodium (Docusate Sodium) 100 Mg Cap, 100 MG PO BID Y for Prevent Constipation, #60 CAP 0 Refills Prov:Binu Dave MD 01/07/17 Tiotropium Inh (Spiriva Handihaler) 18 Mcg Cap, 18 MCG INH DAILY for COPD for 30 Days, CAP 0 Refills 1 capsule = 18 mcg Prov:Binu Dave MD 01/07/17 Gabapentin (Gabapentin) 100 Mg Cap, 100 MG PO TID, #90 CAP 0 Refills Prov:Binu Dave MD 01/07/17 Hospital Bed - Electric (Hospital Bed - Electric) 1 Ea Ea, 1 EA .ROUTE DIRECTED, #1 EA Prov:Art Vasquez 01/07/17 Wheelchair (Wheelchair) 1 Mis Mis, 1 EA .ROUTE DIRECTED, #1 EA 0 Refills Prov:Art Vasquez 01/07/17 Commode 3-in-1 (Commode 3-in-1) 1 Mis Mis, 1 EA .ROUTE DIRECTED, #1 EA 0 Refills Prov:Art VasquezP 01/07/17 Walker Rolling/GetGo (Walker Rolling/GetGo) 1 Mis Mis, 1 EA .ROUTE DIRECTED, #1 EA Prov:Art VasquezP 01/07/17 Reported Medications Bupropion HCl ER 24 HR (Bupropion HCl ER 24 HR) 150 Mg Tab, 150 MG PO DAILY for Control Depression, TAB 0 Refills 07/09/17 Albuterol 8.5 GM Inh (Proair Hfa 8.5 GM Inh) 90 Mcg/Act Aer, 2 PUFF INH Q4-6H Y for SHORTNESS OF BREATH, #1 INHALER 0 Refills 108 mcg/actuation 07/09/17 Lidocaine-Prilocaine Topical (Lidopril Topical) 2.5-2.5 % Cream, 1 APPLIC TOPICAL BID Y for Numbs skin, #1 TUBE 0 Refills 07/09/17 Ondansetron (Zofran) 4 Mg Tab, 4 MG PO Q6HR Y for NAUSEA OR VOMITING, TAB 0 Refills 07/09/17 Promethazine (Phenergan) 25 Mg Tablet, 25 MG PO Q6H Y for NAUSEA OR VOMITING, TAB 0 Refills 04/17/17 Varenicline (Chantix) 0.5 Mg Tab, 0.5 MG PO DAILY for Smoking cessation, #3 TAB 0 Refills Days 1-3 04/17/17 B-Complex W/ C & Folic Acid (Dialyvite 800) 1 Tab 04/17/17 Albuterol 18 GM Inh (Ventolin Hfa 18 GM Inh) 90 Mcg/Act Aer, 2 PUFF INH Q4-6H Y for SHORTNESS OF BREATH, #1 INHALER 0 Refills 04/17/17 Calcium Carbonate (Antacid) (Tums) 500 Mg Chew, 500 MG CHEW Y for HEARTBURN, TAB 0 Refills 04/17/17 Budesonide-Formoterol Inh (Symbicort Inh) 160-4.5 Mcg/Act Aero, 2 PUFF INH Q12HR , #1 INHALER 0 Refills 04/17/17 Dextromethorphan-Guaifenesin (Mucinex DM) 30-600 Mg Tab, 2 TAB PO BID Y for CHEST CONGESTION AND/OR COUGH, TAB 0 Refills 04/17/17 Aspirin (Aspirin) 81 Mg Chew, 81 MG CHEW DAILY, TAB 0 Refills 04/17/17 Oxygen tank (Oxygen tank) 1 Ea Tank, 2 LITER EDUARDO.CANULA HS for HYPOXEMIA PREVENTION, #2 CYLINDER Oxygen Concentrator Portable Gaseous 2 L/min via Nasal Cannula Continuous For 99 months 09/17/16 Current Medications Medications (Trade) Dose Ordered Sig/Carlos Route Start Time Stop Time Status Last Admin (Aspirin Chew) 81 mg DAILY CHEW 07/10/17 09:00 07/12/17 09:03 (Symbicort 160-4.5 Mcg Inh) 2 puff Q12HR INH 07/09/17 21:00 07/12/17 09:04 (Phoslo) 667 mg TIDPC PO 07/09/17 18:30 07/12/17 12:34 (Colace) 100 mg BID PRN PO 07/09/17 13:45 (PROzac) 20 mg DAILY PO 07/10/17 09:00 07/12/17 09:03 (Neurontin) 100 mg TID PO 07/09/17 18:00 07/12/17 12:05 (Emla Cream) 1 applic BID PRN TOPICAL 07/09/17 13:45 (Proamatine) 10 mg TID PO 07/09/17 18:00 07/12/17 12:22 (Phenergan) 25 mg Q6H PRN PO 07/09/17 13:45 (NS Flush) 2 ml UNSCH PRN IV FLUSH 07/09/17 14:00 (NS Flush) 2 ml BID IV FLUSH 07/09/17 21:00 07/12/17 09:03 (Zofran Inj) 4 mg Q6H PRN IVP 07/09/17 14:00 07/09/17 19:46 (Heparin Inj) 5,000 units Q12H SQ 07/09/17 14:00 07/12/17 03:25 (Narcan Inj) 0.4 mg UNSCH PRN IV PUSH 07/09/17 14:00 (Marixa-Colace) 1 tab BID PO 07/09/17 21:00 07/12/17 09:03 (Milk Of Magnesia Liq) 30 ml Q12H PRN PO 07/09/17 14:00 (Senokot) 17.2 mg Q12H PRN PO 07/09/17 14:00 07/10/17 21:21 (Dulcolax Supp) 10 mg DAILY PRN RECTAL 07/09/17 14:00 (Lactulose Liq) 30 ml DAILY PRN PO 07/09/17 14:00 (Catapres) 0.1 mg Q6H PRN PO 07/09/17 14:00 Metronidazole 100 ml @ 100 mls/hr Q12H IV 07/09/17 21:00 07/12/17 09:01 Sodium Chloride 1,000 ml @ 0 mls/hr Q0M PRN OTHER 07/09/17 14:52 (Heparin Inj) 8,000 units UNSCH PRN IV FLUSH 07/09/17 15:00 Sodium Chloride 1,000 ml @ 200 mls/hr Q5H PRN IV 07/09/17 14:52 Sodium Chloride 1,000 ml @ 0 mls/hr Q0M PRN OTHER 07/09/17 14:52 (Mannitol Inj) 12.5 gm UNSCH PRN IV 07/09/17 15:00 07/09/17 17:45 Albumin Human 100 ml @ 60 mls/hr UNSCH PRN IV 07/09/17 15:00 07/09/17 17:46 (NS Flush) 5 ml UNSCH PRN IV FLUSH 07/09/17 15:00 (Heparin Inj) UNSCH PRN .XX 07/09/17 15:00 (Gentamicin (Dialysis) Inj) 20 mg UNSCH PRN OTHER 07/09/17 15:00 (Zofran Inj) 4 mg UNSCH PRN IV PUSH 07/09/17 15:00 07/11/17 12:54 (Tylenol) 650 mg UNSCH PRN PO 07/09/17 15:00 (Benadryl) 25 mg UNSCH PRN PO 07/09/17 15:00 (Nitrostat Sl) 0.4 mg UNSCH PRN SL 07/09/17 15:00 (Catapres) 0.1 mg UNSCH PRN PO 07/09/17 15:00 (Epogen Inj) 4,000 units UNSCH PRN IV PUSH 07/09/17 15:00 07/11/17 12:54 (Gelfoam 12 Mm/7 Mm Top) 1 foam UNSCH PRN TOP 07/09/17 15:00 07/09/17 17:45 (Protonix) 40 mg Q12HR PO 07/09/17 21:00 07/12/17 09:00 (Dilaudid Pf Inj) 0.5 mg Q6H PRN IV PUSH 07/09/17 20:45 07/12/17 12:23 (Habitrol 21 Mg Patch.24 Hr) 1 patch DAILY T-DERMAL 07/10/17 09:00 07/12/17 09:02 Miscellaneous Information 1 HS T-DERMAL 07/09/17 21:00 07/11/17 21:50 (Xanax) 1 mg BID PRN PO 07/09/17 20:45 07/09/17 20:53 Levofloxacin/ Dextrose 50 ml @ 50 mls/hr Q48H IV 07/11/17 21:00 07/11/17 21:47 (Duoneb Neb) 1 ampule QID NEB NEB 07/10/17 12:00 07/12/17 12:03 Lactated Ringer's 1,000 ml @ 30 mls/hr Q24H PRN IV 07/10/17 22:00 07/13/17 21:59 Sodium Chloride 500 ml @ 30 mls/hr [id number] PRN IV 07/10/17 22:00 07/13/17 21:59 07/11/17 14:09 (Neupogen Inj) 480 mcg ONCE ONCE SQ 07/12/17 12:00 07/12/17 12:01 UNV Family Psych History No family psychiatric history Social History Patient was born and raised in [place], she lives in [place] with her daughter, she is supported by Social Security, her highest level of education is 10th grade Physical Exam Vital Signs Vital Signs Date Time Temp Pulse Resp B/P (MAP) Pulse Ox O2 Delivery O2 Flow Rate FiO2 07/12/17 12:00 97.2 72 19 120/59 (79) 94 07/11/17 21:09 21 07/09/17 14:36 Room Air I/O 07/12/17 07/12/17 07/13/17 08:00 16:00 00:00 Intake Total 270 ml Balance 270 ml Lab Results Test 07/12/17 06:56 White Blood Count 2.2 TH/MM3 Red Blood Count 3.62 MIL/MM3 Hemoglobin 10.8 GM/DL Hematocrit 33.1 % Mean Corpuscular Volume 91.4 FL Mean Corpuscular Hemoglobin 29.9 PG Mean Corpuscular Hemoglobin Concent 32.7 % Red Cell Distribution Width 16.8 % Platelet Count 297 TH/MM3 Mean Platelet Volume 7.9 FL Date/Time Source Procedure Growth Status 07/09/17 13:10 Blood Peripheral Aerobic Blood Culture - Preliminary NO GROWTH IN 3 DAYS Resulted 07/09/17 13:10 Blood Peripheral Anaerobic Blood Culture - Preliminary NO GROWTH IN 3 DAYS Resulted Mental Status Examination Appearance: Appropriate Consciousness: Alert Orientation: x4 Motor Activity: Normal gait Speech: Unremarkable Language: Adequate Fund of Knowledge: Adequate Attention and Concentration: Adequate Memory: Unremarkable Mood: Appropriate Affect: Appropriate Thought Process & Associations: Intact Thought Content: Appropriate Hallucination Type: None Delusion Type: None Suicidal Ideation: No Suicidal Plan: No Suicidal Intention: No Homicidal Ideation: No Homicidal Plan: No Homicidal Intention: No Insight: Adequate Judgment: Adequate Assessment & Plan Problem List: (1) Acute kidney injury superimposed on chronic kidney disease ICD Codes: N17.9 - Acute kidney failure, unspecified; N18.9 - Chronic kidney disease, unspecified Status: Acute (2) Psychological factors affecting medical condition ICD Codes: F54 - Psychological and behavioral factors associated with disorders or diseases classified elsewhere Assessment & Plan: On psychiatric evaluation today the patient presents without no evidence of acute depression, anxiety, john and psychosis. Patient is at baseline, logical, coherent and relevant. She is fully oriented 3, no attention deficit, no fluctuation of consciousness. The patient is able to verbalize a very good understanding of her underlying medical conditions, reason for her hospitalization, her choice is to continue medical treatment and recommendations. The patient does not have any psychiatric contraindication is moment to make her own medical decisions. She prefers that her daughter, Mariana Barry Donnie her medical decision in case that she is deemed incapacitated. Patient has a very elevated risk of delirium due to her multiple medical conditions, especially acute/chronic kidney failure. No psychotropics changes indicated. Brief supportive psychotherapy provided. Psychoeducation given. Consult appreciated. Assessment & Plan Estimated LOS: Richardson Rowe MD Jul 12, 2017 12:46
[2017-07-12] MEDS ORDERED: FILGRASTIM 480 MCG/1.6 ML VIAL SQ ONE (14:00)
--- NOTE | 2017-07-12 15:53 | HHI.GIFU ---
Objective Vitals I&O Vital Signs Date Time Temp Pulse Resp B/P (MAP) Pulse Ox O2 Delivery O2 Flow Rate FiO2 07/12/17 12:00 97.2 72 19 120/59 (79) 94 07/12/17 07:52 97.2 75 19 109/53 (71) 94 07/12/17 04:00 98.1 74 16 113/58 (76) 94 07/12/17 00:00 98.4 70 18 118/59 (78) 95 07/11/17 21:09 96 21 07/11/17 20:00 98.1 78 20 136/60 (85) 94 07/11/17 17:25 97.8 78 18 119/56 (77) 96 07/11/17 17:25 97.8 76 18 96/68 (77) 96 I/O 07/11/17 07/11/17 07/11/17 07/12/17 07/12/17 07/12/17 07:00 15:00 23:00 07:00 15:00 23:00 Intake Total 480 ml 150 ml 120 ml Balance 480 ml 150 ml 120 ml Intake Oral 480 ml 120 ml IV Total 150 ml # Voids 3 # Bowel Movements 0 1 Laboratory Laboratory Tests Test 07/12/17 06:56 White Blood Count 2.2 Red Blood Count 3.62 Hemoglobin 10.8 Hematocrit 33.1 Mean Corpuscular Volume 91.4 Mean Corpuscular Hemoglobin 29.9 Mean Corpuscular Hemoglobin Concent 32.7 Red Cell Distribution Width 16.8 Platelet Count 297 Mean Platelet Volume 7.9 Date/Time Source Procedure Growth Status 07/09/17 13:10 Blood Peripheral Aerobic Blood Culture - Preliminary NO GROWTH IN 3 DAYS Resulted 07/09/17 13:10 Blood Peripheral Anaerobic Blood Culture - Preliminary NO GROWTH IN 3 DAYS Resulted Physical Exam HEENT: Pupils round and reactive to light; normocephalic; atraumatic; no jaundice. Pale NECK: Neck is supple, no JVD, no lymphadenopathy. CHEST: Chest is clear that rhonchi CARDIAC: Regular rate and rhythm ABDOMEN: Flat, Soft, nondistended, no hepatosplenomegaly; bowel sounds soft EXTREMITIES: No clubbing, cyanosis, or edema. SKIN: Normal; no rash; no jaundice. PNEUDRAULIC SYSTEMS MECHANIC: No focal deficits; awake nose where she is but fair to poor historian (Sushma Vazquez) Assessment and Plan Assessment: (1) Colitis ICD Codes: K52.9 - Noninfective gastroenteritis and colitis, unspecified (2) Constipation due to opioid therapy ICD Codes: K59.03 - Drug induced constipation; [id number] - Adverse effect of other opioids, initial encounter (3) ESRD (end stage renal disease) ICD Codes: N18.6 - End stage renal disease Status: Chronic (4) Chronic kidney disease ICD Codes: N18.9 - Chronic kidney disease, unspecified Status: Chronic Plan Constipation probable secondary to her daily opioid use. Has been 5 days or greater since bowel movement. In patients currently starting on dialysis which will not and early evening. Plan mag citrate dose this p.m. around 7:00 or after patient's finished with dialysis. Colitis seen on CT scan, currently being managed on Levaquin and Flagyl. She is allergic to Cipro Will work towards bowel movements over the next 24 hours, patient receiving GoLYTELY today, patient states no abdominal pain and feels much better today after her colon cleansing. Anemia stable no obvious bleeding, this is probably secondary to her end-stage renal disease She having symptoms of nausea and heartburn with some dysphasia EGD colonoscopy performed on 07/11/17, results showed Mild gastritis and Colitis with colon ulcerations in the sigmoid. PLAN: Plan Recommend repeat colonoscopy in 3 months Biopsies pending All for any acute bleeding Supportive care GI will sign off, needs to follow-up in the office for further workup Patient was seen per myself and Dr. Arias written on his behalf, (Sushma Vazquez) Physician Comments Patient seen and examined Agree with above Continue with current supportive care Monitor labs Follow-up with GI post discharge (Jarvis Arias MD) Sushma Vazquez Jul 12, 2017 15:53 Jarvis Arias MD Jul 12, 2017 22:30
[2017-07-12 16:00] VITALS: BP 163/87; PULSE 71; RESP 19; TEMP 96.9; O2SAT 100
--- NOTE | 2017-07-12 16:19 | HHI.NPPN ---
Subjective History of Present Illness 66 year old female with ESRD, Lung Ca, Colitis Review of Systems General Constitutional: Fatigue Objective Data Data 07/12/17 07/13/17 19:00 07:00 Intake Total 120 ml Balance 120 ml Intake Oral 120 ml Vital Signs Date Time Temp Pulse Resp B/P (MAP) Pulse Ox O2 Delivery O2 Flow Rate FiO2 07/12/17 12:00 97.2 72 19 120/59 (79) 94 07/12/17 07:52 97.2 75 19 109/53 (71) 94 07/12/17 04:00 98.1 74 16 113/58 (76) 94 07/12/17 00:00 98.4 70 18 118/59 (78) 95 07/11/17 21:09 96 21 07/11/17 20:00 98.1 78 20 136/60 (85) 94 07/11/17 17:25 97.8 78 18 119/56 (77) 96 07/11/17 17:25 97.8 76 18 96/68 (77) 96 -: 07/12/17 0656 07/11/17 0809 Physical Exam General Appearance: Well Developed, Well Nourished Pulmonary Resp Exam: Clear Bilaterally Cardiology CV Exam: Regular, Normal Sinus Rhythm Gastrointestinal/Abdomen GI Exam: Soft, Non-Tender, Bowel Sounds Present Extremeties Extremities Exam: No Edema Neurologic Neuro Exam: Alert, Awake Assessment/Plan Problem List: (1) ESRD (end stage renal disease) ICD Codes: N18.6 - End stage renal disease Status: Chronic Plan: Patient states she is better and wants to go home ESRD on HD TTS dialysis explained that was discussed to increase time to 3 days a week as not doing well White cell count 2.2 Patient feel better and she wants to go home (2) Colitis ICD Codes: K52.9 - Noninfective gastroenteritis and colitis, unspecified Status: Acute Plan: Patient is being treated studies pending (3) Dementia ICD Codes: F03.90 - Unspecified dementia without behavioral disturbance Status: Acute Plan: Per daughter she is concerned she is forgetful (4) COPD (chronic obstructive pulmonary disease) ICD Codes: J44.9 - Chronic obstructive pulmonary disease, unspecified Status: Chronic Plan: Continue supportive care (5) Neutropenia ICD Codes: D70.9 - Neutropenia, unspecified Status: Chronic Plan: Patient has autoimmune neutropenia and gets Neupogen Rhiannon,Sajid MD Jul 12, 2017 16:19
[2017-07-12 20:00] VITALS: BP 146/68; PULSE 76; RESP 20; TEMP 97; O2SAT 95
[2017-07-12] MEDS: REMOVE OLD NICODERM (NICOTINE) PATCH T-DERMAL SCH (20:32)
[2017-07-13] VITALS: BP 136/62; PULSE 74; RESP 20; TEMP 97.6; O2SAT 93
[2017-07-13 00:11] VITALS: PULSE 69
[2017-07-13] MEDS: HEPARIN SODIUM - SQ 10,000 UNITS/ML VIAL SQ SCH ×2 (01:27→13:30)
[2017-07-13 04:00] VITALS: BP 148/67; PULSE 76; RESP 20; TEMP 97.6; O2SAT 93
[2017-07-13] MEDS: RESP: ALBUTEROL 2.5 MG/IPRATROPIUM 0.5 MG NEB (SCH) NEB ×3 (07:54→16:03)
[2017-07-13 08:00] VITALS: BP 114/56; PULSE 89; RESP 17; TEMP 96.7; O2SAT 92
--- NOTE | 2017-07-13 08:19 | HHI.PR ---
Objective Vitals Vital Signs Date Time Temp Pulse Resp B/P (MAP) Pulse Ox O2 Delivery O2 Flow Rate FiO2 07/13/17 07:56 21 07/13/17 04:00 97.6 76 20 148/67 (94) 93 07/13/17 00:11 69 07/13/17 00:00 97.6 74 20 136/62 (86) 93 07/12/17 21:37 21 07/12/17 20:00 97.0 76 20 146/68 (94) 95 07/12/17 16:00 96.9 71 19 163/87 (112) 100 07/12/17 12:00 97.2 72 19 120/59 (79) 94 I/O 07/12/17 07/12/17 07/12/17 07/13/17 07/13/17 07/13/17 07:00 15:00 23:00 07:00 15:00 23:00 Intake Total 150 ml 120 ml 2020 ml 360 ml Balance 150 ml 120 ml 2020 ml 360 ml Intake Oral 120 ml 1920 ml 360 ml IV Total 150 ml 100 ml # Voids 1 # Bowel Movements 0 Result Diagram: 07/12/17 0656 07/11/17 0809 Elise Khan DO Jul 13, 2017 08:19
[2017-07-13] MEDS: MIDODRINE 5 MG TAB PO SCH ×4 (08:37→19:16)
[2017-07-13] MEDS: CALCIUM ACETATE 667 MG CAP PO SCH ×3 (08:37→18:16)
[2017-07-13] MEDS: GABAPENTIN 100 MG CAP PO SCH ×3 (08:37→18:16)
[2017-07-13] MEDS: DOCUSATE SODIUM 50 MG/SENNA 8.6 MG TAB PO SCH (08:37)
[2017-07-13] MEDS: metroNIDAZOLE 500 MG INJ 100 ML IV SCH (08:38)
[2017-07-13] MEDS: SODIUM CHLORIDE 0.9% FLUSH 10 ML FLUSH IV FLUSH SCH (08:38)
[2017-07-13] MEDS: ASPIRIN 81 MG CHEW TAB CHEW SCH (08:38)
[2017-07-13] MEDS: PANTOPRAZOLE SOD 40 MG DELAYED RELEASE TAB PO SCH (08:38)
[2017-07-13] MEDS: NICOTINE 21 MG/24 HR PATCH T-DERMAL SCH (08:38)
[2017-07-13] MEDS: FLUoxetine HCL 20 MG CAP PO SCH (08:39)
[2017-07-13] MEDS: BUDESONIDE-FORMOTEROL 160/4.5 MCG INHALER INH SCH (08:39)
[2017-07-13] MEDS: HYDROmorphone HCL PF 2 MG/ML VIAL IV PUSH PRN ×2 (08:44→19:16)
--- NOTE | 2017-07-13 10:19 | HHI.NPPN ---
Subjective History of Present Illness 66 year old female with ESRD, Lung Ca, Colitis Additional Remarks Patient is alert, seen during HD, has mild abd. cramping, and loose BM. Review of Systems General Constitutional: Fatigue Objective Data Data Vital Signs Date Time Temp Pulse Resp B/P (MAP) Pulse Ox O2 Delivery O2 Flow Rate FiO2 07/13/17 08:00 96.7 89 17 114/56 (75) 92 07/13/17 07:56 21 07/13/17 04:00 97.6 76 20 148/67 (94) 93 07/13/17 00:11 69 07/13/17 00:00 97.6 74 20 136/62 (86) 93 07/12/17 21:37 21 07/12/17 20:00 97.0 76 20 146/68 (94) 95 07/12/17 16:00 96.9 71 19 163/87 (112) 100 07/12/17 12:00 97.2 72 19 120/59 (79) 94 -: 07/12/17 0656 07/11/17 0809 Physical Exam General Appearance: No Acute Distress, Comfortable Pulmonary Resp Exam: Clear Bilaterally Cardiology CV Exam: Regular, Normal Sinus Rhythm Gastrointestinal/Abdomen GI Exam: Soft, Non-Tender, Bowel Sounds Present Extremeties Extremities Exam: Trace Edema Neurologic Neuro Exam: Alert, Awake Assessment/Plan Problem List: (1) ESRD (end stage renal disease) ICD Codes: N18.6 - End stage renal disease Status: Chronic Plan: Patient states she is better and wants to go home ESRD on HD TTS dialysis explained that was discussed to increase time to 3 days a week as not doing well White cell count 2.2 Now on HD, tolerating well. Want to go home, can be discharged from Nephrology. (2) Colitis ICD Codes: K52.9 - Noninfective gastroenteritis and colitis, unspecified Status: Acute Plan: Patient is being treated studies pending (3) Dementia ICD Codes: F03.90 - Unspecified dementia without behavioral disturbance Status: Acute Plan: Per daughter she is concerned she is forgetful (4) COPD (chronic obstructive pulmonary disease) ICD Codes: J44.9 - Chronic obstructive pulmonary disease, unspecified Status: Chronic Plan: Continue supportive care (5) Neutropenia ICD Codes: D70.9 - Neutropenia, unspecified Status: Chronic Plan: Patient has autoimmune neutropenia and gets Neupogen Jumani,Citlaly Q. MD Jul 13, 2017 10:19
[2017-07-13] MEDS: GELATIN 12 MM/7 MM FOAM TOP PRN (12:07)
[2017-07-13] MEDS: EPOETIN ALFA 10,000 UNITS/ML VIAL IV PUSH PRN (12:08)
[2017-07-13 13:06] LABS: AUTOMATED NEUTROPHIL # 6.1 TH/MM3 (1.8-7.7); BASOPHIL # 0.1 TH/MM3 (0-0.2); BASOPHIL % 1.1 % (0.0-2.0); EOSINOPHIL # 0.4 TH/MM3 (0-0.4); HEMATOCRIT 33.8 % (35.0-46.0); HEMOGLOBIN 10.7 GM/DL (11.6-15.3); LYMPH % 7.8 % (9.0-44.0); LYMPHOCYTE # 0.7 TH/MM3 (1.0-4.8); MEAN CELL VOLUME 92.1 FL (80.0-100.0); MEAN CORPUSCULAR HEMOGLOBIN 29.3 PG (27.0-34.0); MEAN CORPUSCULAR HGB CONC 31.8 % (32.0-36.0); MEAN PLATELET VOLUME 7.9 FL (7.0-11.0); MONO % 16.7 % (0.0-8.0); MONOCYTE # 1.5 TH/MM3 (0-0.9); NEUT % 69.4 % (16.0-70.0); PLATELET COUNT 329 TH/MM3 (150-450); RED BLOOD COUNT 3.67 MIL/MM3 (4.00-5.30); RED CELL DISTRIBUTION WIDTH 16.5 % (11.6-17.2); WHITE BLOOD COUNT 8.8 TH/MM3 (4.0-11.0)
[2017-07-13 13:28] VITALS: BP 121/56; PULSE 75; RESP 17; TEMP 98.8; O2SAT 93
[2017-07-13 13:38] LABS: BANDS 11 % (0-6); LYMPHOCYTES 8 % (9-44); MONOCYTES 15 % (0-8); NEUTROPHIL # MANUAL DIFF 6.2 TH/MM3 (1.8-7.7); POLYS (SEG NEUTROPHILS) 60 % (16-70)
[2017-07-13 13:39] LABS: DOHLE BODIES PRESENT (NONE SEEN)
[2017-07-13 16:00] VITALS: BP 146/62; PULSE 71; RESP 17; TEMP 99.1; O2SAT 92
--- NOTE | 2017-07-13 16:14 | HHI.FF ---
Face to Face Verification Diagnosis: (1) Squamous cell carcinoma (2) ESRD (end stage renal disease) (3) Neutropenia Physical Therapy Order: Evaluate and Treat, Improve ambulation, Strength and gait training Home Health Nursing Order: Medical education Signs/symptoms of disease process Medication education-adverse effect Nursing assessment with vital signs I have seen patient Allie Hylton on 07/13/17. My clinical findings support the need for the requested home health care services because: Ltd mobility - disease progression Patient has SOB Deconditioned w/ increased weakness I certify that my clinical findings support that this patient is homebound because: Unsteady gait/balance Unsafe to leave home unassisted Need for psychosocial assistance [id number] bed/chair Unable to use public transportation Elise Khan DO Jul 13, 2017 4:14 pm
[2017-07-13] MEDS ORDERED: LEVA250T14 PO (16:23)
[2017-07-13] MEDS ORDERED: METR-1 PO (16:23)
--- NOTE | 2017-07-13 16:25 | HHI.DS ---
Discharge Summary Admission Date Jul 11, 2017 at 10:09 am Discharge Date: Jul 13, 2017 Admitting Diagnosis colitis (1) Neutropenia ICD Code: D70.9 - Neutropenia, unspecified Diagnosis: Principal Status: Chronic (2) Colitis ICD Code: K52.9 - Noninfective gastroenteritis and colitis, unspecified Diagnosis: Principal (3) Squamous cell carcinoma ICD Code: C80.1 - Malignant (primary) neoplasm, unspecified Status: Acute (4) ESRD (end stage renal disease) ICD Code: N18.6 - End stage renal disease Status: Chronic Procedures EGD The esophagus this appeared to be normal The stomach there was patchy erythema in the antrum but no ulceration or erosions no blood or bleeding the rest of the gastric mucosa unremarkable antral biopsies were taken for further evaluation The duodenum this appeared to be unremarkable normal limits Colonoscopy As the scope was slowly withdrawn colonic mucosa was carefully inspected this was a limited examination due to copious amount of thick stool ball most importantly were ulcerations fairly wide based in the proximal sigmoid of unclear significance multiple biopsies were taken continuing down the colon also noted mild diverticulosis of the sigmoid otherwise colonic examination was unremarkable so as retroflexion and rectal examination Brief History - From Admission Allie Hylton is a 66-year-old female who was complaining of back and abdominal pain. She presented to the emergency room and missed her dialysis yesterday. The emergency room physician ordered a CT scan which showed colitis and possible UTI and upper respiratory infection. She added that she has not been having bowel movements and was found to have chronic neutropenia. She was found to have an ANC of 342. She was given IV antibiotics in the emergency room and I was thus called for admission. We immediately ordered a nephrology consult to get her back on schedule with her dialysis Tuesdays and from what I recall she only goes twice a week. She underwent dialysis already. She states she has still not had a bowel movement. GI was consulted and reportedly are going to do a colonoscopy tomorrow. I was called for ongoing abdominal pain and she and her daughter were requesting IV Dilaudid again since they had had it in the emergency room. CBC/BMP: 07/13/17 0915 07/11/17 0809 Significant Findings Laboratory Tests Test 07/11/17 08:09 07/12/17 06:56 07/13/17 09:15 White Blood Count 2.8 TH/MM3 (4.0-11.0) 2.2 TH/MM3 (4.0-11.0) Red Blood Count 3.77 MIL/MM3 (4.00-5.30) 3.62 MIL/MM3 (4.00-5.30) 3.67 MIL/MM3 (4.00-5.30) Hemoglobin 11.2 GM/DL (11.6-15.3) 10.8 GM/DL (11.6-15.3) 10.7 GM/DL (11.6-15.3) Hematocrit 34.1 % (35.0-46.0) 33.1 % (35.0-46.0) 33.8 % (35.0-46.0) Monocytes % 48 % (0-8) 15 % (0-8) Eosinophils % 17 % (0-4) 6 % (0-4) Basophils % 3 % (0-2) Neutrophils # (Manual) 0.4 TH/MM3 (1.8-7.7) Metamyelocytes 6 % (0-1) Myelocytes 2 % (0-0) Prothrombin Time 12.6 SEC (9.8-11.6) Blood Urea Nitrogen 50 MG/DL (7-18) Creatinine 6.91 MG/DL (0.50-1.00) Random Glucose 64 MG/DL (74-106) Chloride Level 93 MEQ/L (98-107) Carbon Dioxide Level 33.0 MEQ/L (21.0-32.0) Estimat Glomerular Filtration Rate 6 ML/MIN (>89) Mean Corpuscular Hemoglobin Concent 31.8 % (32.0-36.0) Lymphocytes (%) (Auto) 7.8 % (9.0-44.0) Monocytes (%) (Auto) 16.7 % (0.0-8.0) Eosinophils (%) (Auto) 5.0 % (0.0-4.0) Lymphocytes # (Auto) 0.7 TH/MM3 (1.0-4.8) Monocytes # (Auto) 1.5 TH/MM3 (0-0.9) Band Neutrophils % 11 % (0-6) Lymphocytes % 8 % (9-44) Dohle Bodies PRESENT (NONE SEEN) Imaging Last Impressions Hip and Pelvis X-Ray 07/11/17 0000 Signed Impressions: Service Date/Time: June 09:19 - CONCLUSION: Unremarkable examination of the right hip status post previous fixation. No acute fracture is seen. Uche Jalloh MD Abdomen/Pelvis CT 07/09/17 0000 Signed Impressions: Service Date/Time: Sunday, July 09, 2017 10:51 - CONCLUSION: Abnormal colon along segment 8-9 cm distal descending colon proximal sigmoid colon with concentric bowel wall thickening and some inflammatory changes in the pericolonic fat which suggests colitis. Otherwise stable abdomen with prior cholecystectomy and chronic dilatation of intrahepatic bile ducts. Punctate calcifications in the pancreatic head are unchanged. Progressive consolidation with air bronchograms in the left lower lobe additionally appreciated Ish Dalton MD PE at Discharge GENERAL: Alert, Oriented x 3, NAD. SKIN: Warm and dry. HEAD: Normocephalic. EYES: No scleral icterus. No injection or drainage. NECK: Supple, trachea midline. No JVD or lymphadenopathy. CARDIOVASCULAR: Regular rate and rhythm without murmurs, gallops, or rubs. RESPIRATORY: Breath sounds equal bilaterally. No accessory muscle use. GASTROINTESTINAL: Abdomen soft, non-tender, nondistended. MUSCULOSKELETAL: No cyanosis, or edema. BACK: Nontender without obvious deformity. No CVA tenderness. Pt update on day of discharge Patient is doing well. She is able to ambulate with her walker. No fever, chills. She wants to go home. She does not want to go to SNF. Discussed with patient's daughter who states that patient's room is ready at home. Hospital Course Ms. Hylton is a pleasant 66 year old female with a history of ESRD who was admitted on 07/09/2017 due to abdominal pain. CT study indicated colitis. She was started on Levaquin and Flagyl. She was also found to be neutropenic with ANC less than 500. Hematology, GI and nephrology were consulted. Patient received her dialysis while in-patient. Hematology evaluated patient and gave Neupogen. GI performed EGD/Colonoscopy. Her neutropenia improved. Her highest temp was 99.8. She was advised to go to SNF per PT evaluation. However, patient insisted on going home. Psychiatry evaluated and determined that she has capacity. I discussed with patient's daughter at length. She was somewhat concerned that she would not have the power of acting instructor since her mother has capacity per psychiatry now. However, she will help her as much she can. She stated that patient's room is ready at home. We arranged home health and patient was subsequently discharged home. We continued Levaquin and Flagyl for several more days and patient is encouraged to follow up with her PCP early next week. Pt Condition on Discharge: Good Discharge Disposition: Disch w/ Home Health Serv Discharge Time: > 30 minutes Discharge Instructions DIET: Follow Instructions for: Heart Healthy Diet Activities you can perform: Regular-No Restrictions Follow up Referrals: PCP Follow-up - 3-5 Days with Alli Watkins MD New Medications: Levofloxacin (Levaquin) 250 Mg Tablet 250 MG PO EVERY OTHER DAY for Infection, #3 TAB 0 Refills First dose 07/13/2017 at 9PM. Metronidazole (Flagyl) 500 Mg Tab 500 MG PO BID for Infection, #10 TAB 0 Refills Continued Medications: Albuterol 18 GM Inh (Ventolin Hfa 18 GM Inh) 90 Mcg/Act Aer 2 PUFF INH Q4-6H PRN for SHORTNESS OF BREATH, #1 INHALER 0 Refills Albuterol 8.5 GM Inh (Proair Hfa 8.5 GM Inh) 90 Mcg/Act Aer 2 PUFF INH Q4-6H PRN for SHORTNESS OF BREATH, #1 INHALER 0 Refills 108 mcg/actuation Alprazolam (Xanax) 1 Mg Tab 1 MG PO BID PRN for ANXIETY, #60 TAB Aspirin (Aspirin) 81 Mg Chew 81 MG CHEW DAILY, TAB 0 Refills B-Complex W/ C & Folic Acid (Dialyvite 800) 1 Tab Budesonide-Formoterol Inh (Symbicort Inh) 160-4.5 Mcg/Act Aero 2 PUFF INH Q12HR, #1 INHALER 0 Refills Bupropion HCl ER 24 HR (Bupropion HCl ER 24 HR) 150 Mg Tab 150 MG PO DAILY for Control Depression, TAB 0 Refills Calcium Acetate (Phosphate Bin (Calcium Acetate) 667 Mg Cap 667 MG PO TIDPC for dialysis, #90 CAP 3 Refills Calcium Carbonate (Antacid) (Tums) 500 Mg Chew 500 MG CHEW PRN for HEARTBURN, TAB 0 Refills Cholecalciferol (Vitamin D3) 2,000 Unit Cap 2000 UNITS PO DAILY for Nutritional Supplement, #30 BOTTLE 0 Refills Dextromethorphan-Guaifenesin (Mucinex DM) 30-600 Mg Tab 2 TAB PO BID PRN for CHEST CONGESTION AND/OR COUGH, TAB 0 Refills Docusate Sodium (Docusate Sodium) 100 Mg Cap 100 MG PO BID PRN for Prevent Constipation, #60 CAP 0 Refills Famotidine (Famotidine) 20 Mg Tab 20 MG PO DAILY, #30 TAB 0 Refills Fluoxetine (Fluoxetine) 20 Mg Tab 20 MG PO DAILY, #30 TAB 0 Refills Gabapentin (Gabapentin) 100 Mg Cap 100 MG PO TID, #90 CAP 0 Refills Lidocaine-Prilocaine Topical (Lidopril Topical) 2.5-2.5 % Cream 1 APPLIC TOPICAL BID PRN for Numbs skin, #1 TUBE 0 Refills Midodrine (Midodrine) 10 Mg Tab 10 MG PO TID for Control Low Blood Pressure, #90 TAB 0 Refills Ondansetron (Zofran) 4 Mg Tab 4 MG PO Q6HR PRN for NAUSEA OR VOMITING, TAB 0 Refills Oxycodone (Oxycodone) 10 Mg Tab 10 MG PO Q6HR PRN for PAIN SCALE 1 TO 10, #90 TAB 0 Refills Promethazine (Phenergan) 25 Mg Tablet 25 MG PO Q6H PRN for NAUSEA OR VOMITING, TAB 0 Refills Tiotropium Inh (Spiriva Handihaler) 18 Mcg Cap 18 MCG INH DAILY for COPD for 30 Days, CAP 0 Refills 1 capsule = 18 mcg Varenicline (Chantix) 0.5 Mg Tab 0.5 MG PO DAILY for Smoking cessation, #3 TAB 0 Refills Days 1-3 Elise Khan DO Jul 13, 2017 16:25
--- NOTE | 2017-07-13 16:58 | HHI.FF ---
Face to Face Verification Diagnosis: (1) ESRD (end stage renal disease) (2) Colitis (3) Squamous cell carcinoma (4) Debility Physical Therapy Order: Evaluate and Treat, Improve ambulation, Strength and gait training Occupational Therapy Order: Evaluate and Treat, Improve ADL, Gross motor coordination, Fine motor coordination Home Health Nursing Order: Medical education Diabetic education CHF education Oxygen administration education Nursing assessment with vital signs Instructions: Please provide a psychiatry nurse as well. Thank you. 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 My clinical findings support the need for the requested home health care services because: Ltd mobility - disease progression Patient has SOB Deconditioned w/ increased weakness Med compliance is questionable Limited ability to care for self Need for psychosocial assistance Impaired cognition/judgement High risk of falls Infection w/ risk of complications I certify that my clinical findings support that this patient is homebound because: Impaired cognitive ability/safety Hx COPD- exertion dyspnea/weakness Unsteady gait/balance Unsafe to leave home unassisted Need for psychosocial assistance [id number] bed/chair Unable to use public transportation Elise Khan DO Jul 13, 2017 4:58 pm
== END 2017-07-13 19:32 | disposition home health service (06) | DRG 391 ==
LOC: NEPC 09:33 → INTOOBSV 12:48 → NEDA 12:48 → N07A 18:44 → OBSVTOIN 07-11 10:09
PROVIDERS: ADMIT Family Medicine; ATTEND Family Medicine
PROC: 5A1D70Z Performance of Urinary Filtration, Intermittent, Less than 6 Hours Per Day (ICD-10-PCS; 2017-07-09)
PROC: 0DB68ZX Excision of Stomach, Via Natural or Artificial Opening Endoscopic, Diagnostic (ICD-10-PCS; principal; 2017-07-11 16:04)
PROC: 0DBN8ZX Excision of Sigmoid Colon, Via Natural or Artificial Opening Endoscopic, Diagnostic (ICD-10-PCS; 2017-07-11 16:04)
DX: K52.9 Noninfective gastroenteritis and colitis, unspecified (principal); N18.6 End stage renal disease; J18.9 Pneumonia, unspecified organism; K63.3 Ulcer of intestine; I12.0 Hypertensive chronic kidney disease with stage 5 chronic kidney disease or end stage renal disease; F03.90 Unspecified dementia, unspecified severity, without behavioral disturbance, psychotic disturbance, mood disturbance, and anxiety; D70.8 Other neutropenia; E11.22 Type 2 diabetes mellitus with diabetic chronic kidney disease; D63.1 Anemia in chronic kidney disease; J43.9 Emphysema, unspecified; K21.9 Gastro-esophageal reflux disease without esophagitis; M19.90 Unspecified osteoarthritis, unspecified site; F41.9 Anxiety disorder, unspecified; F32.9 Major depressive disorder, single episode, unspecified; E11.51 Type 2 diabetes mellitus with diabetic peripheral angiopathy without gangrene; K59.03 Drug induced constipation; K29.70 Gastritis, unspecified, without bleeding; K57.30 Diverticulosis of large intestine without perforation or abscess without bleeding; F54 Psychological and behavioral factors associated with disorders or diseases classified elsewhere; T40.2X5A Adverse effect of other opioids, initial encounter; Z51.5 Encounter for palliative care; Z66 Do not resuscitate; I25.2 Old myocardial infarction; Z88.1 Allergy status to other antibiotic agents; Z99.2 Dependence on renal dialysis; Z99.81 Dependence on supplemental oxygen; Z85.118 Personal history of other malignant neoplasm of bronchus and lung
CPT/HCPCS: 73502; 74176; 80048; 80053; 83605; 83690; 84100; 85007; 85027; 85610; 85730; 87040; 88305; 90935; 94640; 94664; 96374; 96375; 99285; G0257; G8987-GP; G8988-GP; J1170; J1442; J1644; J1956; J2150; J2370; J2405; J2543; J7030; J7040; P9047; Q4081

== ENCOUNTER 2017-08-01 18:15 | Inpatient (IN) | payer MEDICARE, OTHER ==
[~2017-08-01] VITALS: Ht 165.1 cm; Wt 63.0 kg
[~2017-08-01 18:15] MED LIST changes: +ALBUAER3 INH; +BUPR150T3 PO; +LEVA250T14 PO; +LIDO1CRE31 TOPICAL; +METR-1 PO; +ZOFR4TAB PO
[2017-08-01 18:17] VITALS: BP 149/66; PULSE 79; RESP 18; TEMP 98.1; O2SAT 99
--- NOTE | 2017-08-01 19:06 | RADRPT ---
EXAM DATE/TIME: 08/01/2017 18:47 [facility] COMPARISON: CHEST SINGLE AP, December 28, 2016, 18:28. INDICATIONS : Shortness of breath and chest pain. MEDICAL HISTORY : Myocardial infarction, End stage emphysema, Brain aneurysm, Hypertension, COPD, Pneumonia, Diabetes, Hiatal hernia, GERD. SURGICAL HISTORY : Hiatal hernia, arteriovenous shunt, Wedge resection for squamous cell carcinoma, Cholecystectomy, Tub al ligation, Cardiac cath. ENCOUNTER: Initial ACUITY: 1 week PAIN SCORE: 7/10 LOCATION: Bilateral chest FINDINGS: Area of consolidation and scarring again seen left mid to lower lung. There is associated volume loss . These findings are not significantly changed. Right lung remains clear. Previously seen Vas-Cath has been removed. Stable, normal heart size. CONCLUSION: Chronic left base consolidation/scarring with volume loss. No acute cardiopulmonary disease demonstra trae. Jose Rainey MD on August 01, 2017 at 19:02 Board Certified Radiologist. This report was verified electronically.
[2017-08-01] MEDS ORDERED: GABA100C4 PO (20:02)
[2017-08-01] MEDS ORDERED: LACT10SO PO (20:02)
[2017-08-01] MEDS ORDERED: NITR1SUB3 SL (20:02)
[2017-08-01 20:11] LABS: AUTOMATED NEUTROPHIL # 0.5 TH/MM3 (1.8-7.7); BASOPHIL # 0.2 TH/MM3 (0-0.2); BASOPHIL % 4.9 % (0.0-2.0); EOSINOPHIL # 0.3 TH/MM3 (0-0.4); EOSINOPHIL % 9.4 % (0.0-4.0); HEMATOCRIT 41.7 % (35.0-46.0); HEMOGLOBIN 13.8 GM/DL (11.6-15.3); LYMPH % 28.7 % (9.0-44.0); LYMPHOCYTE # 0.9 TH/MM3 (1.0-4.8); MEAN CELL VOLUME 93.4 FL (80.0-100.0); MEAN CORPUSCULAR HGB CONC 33.2 % (32.0-36.0); MEAN PLATELET VOLUME 7.7 FL (7.0-11.0); MONOCYTE # 1.4 TH/MM3 (0-0.9); PLATELET COUNT 353 TH/MM3 (150-450); RED BLOOD COUNT 4.46 MIL/MM3 (4.00-5.30); RED CELL DISTRIBUTION WIDTH 17.6 % (11.6-17.2); WHITE BLOOD COUNT 3.3 TH/MM3 (4.0-11.0)
[2017-08-01] MEDS ORDERED: ACETAMINOPHEN 325 MG TAB PO ONE (20:15)
[2017-08-01 20:19] LABS: INTERNATIONAL NORMALIZED RATIO 1.1 RATIO; PROTHROMBIN TIME - PATIENT 10.7 SEC (9.8-11.6)
[2017-08-01 20:32] LABS: BICARBONATE 30.7 MEQ/L (21.0-32.0); BLOOD UREA NITROGEN 16 MG/DL (7-18); CALCIUM 9.2 MG/DL (8.5-10.1); CHLORIDE 99 MEQ/L (98-107); GLOMERULAR FILTRATION RATE 12 ML/MIN (>89); GLUCOSE,RANDOM 91 MG/DL (74-106); MAGNESIUM 2.3 MG/DL (1.5-2.5); SODIUM (NA) 135 MEQ/L (136-145); TROPONIN I LESS THAN 0.02 NG/ML (0.02-0.05)
[2017-08-01 21:28] LABS: BANDS 2 % (0-6); BASOPHILS 1 % (0-2); LYMPHOCYTES 21 % (9-44); MONOCYTES 47 % (0-8); NEUTROPHIL # MANUAL DIFF 0.8 TH/MM3 (1.8-7.7); POLYS (SEG NEUTROPHILS) 21 % (16-70)
[2017-08-01 21:29] LABS: OVALOCYTES 1+ (NORMAL); SPHEROCYTES 1+ (NORMAL)
[2017-08-01] MEDS ORDERED: traMADol HCL 50 MG TAB PO ONE (21:45)
[2017-08-01] MEDS ORDERED: PIPERACIL-TAZO 3.375 GM PREMIX 50 ML IV ONE (22:15)
[2017-08-01] MEDS ORDERED: VANCOMYCIN INJ 1,000 MG in SODIUM CHLOR 0.9% 250 ML INJ 250 ML IV ONE (22:15)
[2017-08-01] MEDS ORDERED: LACTULOSE SYRUP 20 GM/30 ML CUP PO PRN (22:30)
[2017-08-01] MEDS ORDERED: GLUCAGON 1 MG/ML VIAL IM PRN (22:30)
[2017-08-01] MEDS ORDERED: GLUCAGON 1 MG/ML VIAL OTHER PRN (22:30)
[2017-08-01] MEDS ORDERED: NALOXONE HCL 0.4 MG/ML AMP IV PUSH PRN (22:30)
[2017-08-01] MEDS ORDERED: DEXTROSE 50% IN WATER 50 ML VIAL(D50) IV PUSH PRN (22:30)
[2017-08-01] MEDS ORDERED: MAGNESIUM HYDROXIDE SUSP 30 ML CUP PO PRN (22:30)
[2017-08-01] MEDS ORDERED: LIDOCAINE-PRILOCAIN 2.5% CREAM 5 GM TUBE TOPICAL PRN (22:30)
[2017-08-01] MEDS ORDERED: BISACODYL 10 MG SUPP RECTAL PRN (22:30)
[2017-08-01] MEDS ORDERED: DOCUSATE SODIUM 100 MG CAP PO PRN (22:30)
[2017-08-01] MEDS ORDERED: DEXTROMETHORPHAN GUAIFENESIN PO PRN (22:30)
[2017-08-01] MEDS ORDERED: SENNOSIDES 8.6 MG TAB PO PRN (22:30)
[2017-08-01] MEDS ORDERED: SODIUM CHLORIDE 0.9% FLUSH 10 ML FLUSH IV FLUSH PRN (22:30)
[2017-08-01 22:36] VITALS: BP 128/58; PULSE 67; RESP 16; O2SAT 100
--- NOTE | 2017-08-01 22:40 | PD ---
HPI . Shortness of breath Chief Complaint: Respiratory Symptoms Time Seen by Provider: 19:52 Travel History International Travel<30 days: No Contact w/Intl Traveler<30days: No Traveled to known affect area: No History of Present Illness HPI 66-year-old female with a history of chronic neutropenia end-stage renal disease on dialysis, presents with having mild shortness of breath. Patient denies chest pain, orthopnea, fever chills or sweats. Patient is compliant with her medications and with dialysis. PFSH Past Medical History Narrative Medical Past medical history reviewed Hx Anticoagulant Therapy: Yes Arthritis: Yes Anxiety: Yes Depression: Yes Cancer: Yes (lung) Cardiovascular Problems: Yes Chemotherapy: No Chest Pain: Yes COPD: Yes Coronary Artery Disease: Yes Diabetes: Yes (diet controled) Patient Takes Glucophage: No Diminished Hearing: No Endocrine: Yes Gastrointestinal Disorders: Yes (CONSTIPATION) GERD: Yes Genitourinary: Yes Hepatitis: Yes (PREVIOUS FOOD BORNE HEPATITIS INFECTION PER CAREGIVER) Hiatal Hernia: Yes Immune Disorder: No Implanted Vascular Access Dvce: Yes Musculoskeletal: Yes (OA) Neurologic: Yes (ANEURYSM) Psychiatric: No Reproductive: No Respiratory: Yes (END STAGE EMPHYSEMA) Immunizations Current: Yes Myocardial Infarction: Yes ("minor"@51) Pneumonia: Yes Radiation Therapy: Yes (2014) Renal Failure: Yes Thyroid Disease: No : 3 Para: 3 Past Surgical History Abdominal Surgery: Yes (cholecystectomy) AICD: No Arteriovenous Shunt: Yes Body Medical Devices: brain stent capped Cardiac Surgery: Yes (cardiac cath) Cholecystectomy: Yes Ear Surgery: No Endocrine Surgery: No Eye Surgery: No Gynecologic Surgery: Yes (tubal ligation) Joint Replacement: Yes Neurologic Surgery: Yes (brain anuerysm with stent (capped)) Oral Surgery: No Pacemaker: No Thoracic Surgery: Yes (WEDGE RESECTION FOR SQUAMOUS CELL CARCINOMA) Other Surgery: Yes Social History Alcohol Use: No Tobacco Use: Yes (1 PPD) Substance Use: No Allergies-Medications (Allergen,Severity, Reaction): Coded Allergies: morphine (Verified Allergy, Severe, RASH, 07/09/17) ciprofloxacin (Verified Adverse Reaction, Intermediate, NAUSEAS, 07/09/17) codeine (Verified Adverse Reaction, Intermediate, Vertigo, 07/09/17) Reported Meds & Prescriptions Reported Meds & Active Scripts Active Oxycodone (Oxycodone HCl) 10 Mg Tab 10 Mg PO Q6HR PRN Xanax (Alprazolam) 1 Mg Tab 1 Mg PO BID PRN Vitamin D3 (Cholecalciferol) 2,000 Unit Cap 2,000 Units PO DAILY Fluoxetine (Fluoxetine HCl) 20 Mg Tab 20 Mg PO DAILY Midodrine 10 Mg Tab 10 Mg PO TID Calcium Acetate (Calcium Acetate (Phosphate Bin) 667 Mg Cap 667 Mg PO TIDPC Famotidine 20 Mg Tab 20 Mg PO DAILY Docusate Sodium 100 Mg Cap 100 Mg PO BID PRN Spiriva Handihaler (Tiotropium Inh) 18 Mcg Cap 18 Mcg INH DAILY 30 Days 1 capsule = 18 mcg Reported Nitroglycerin SL (Nitroglycerin) 0.4 Mg Subl 0.4 Mg SL DIRECTED PRN ONE TABLET UNDER THE TONGUE NEEDED FOR CHEST PAIN, MAY REPEAT EVERY FIVE MINUTES FOR A TOTAL OF 3 DOSES OR CALL 911 IF NO RELIEF Lactulose Liq (Lactulose) 10 Gm/15 Ml Soln 30 Ml PO TID Gabapentin 100 Mg Cap 100 Mg PO BID Bupropion HCl ER 24 HR (Bupropion HCl) 150 Mg Tab 150 Mg PO DAILY Proair Hfa 8.5 GM Inh (Albuterol Sulfate) 90 Mcg/Act Aer 2 Puff INH Q4-6H PRN 108 mcg/actuation Lidopril Topical (Lidocaine-Prilocaine Topical) 2.5-2.5 % Cream 1 Applic TOPICAL BID PRN Zofran (Ondansetron HCl) 4 Mg Tab 4 Mg PO Q6HR PRN Dialyvite 800 (B-Complex W/ C & Folic Acid) 1 Tab Ventolin Hfa 18 GM Inh (Albuterol Sulfate) 90 Mcg/Act Aer 2 Puff INH Q4-6H PRN Tums (Calcium Carbonate (Antacid)) 500 Mg Chew 500 Mg CHEW PRN Symbicort Inh (Budesonide/Formoterol Fumarate) 160-4.5 Mcg/Act Aero 2 Puff INH Q12HR Mucinex DM (Dextromethorphan-Guaifenesin) 30-600 Mg Tab 2 Tab PO BID PRN Aspirin 81 Mg Chew 81 Mg CHEW DAILY Oxygen tank (Oxygen) 1 Ea Tank 2 Liter EDUARDO.CANULA HS Oxygen Concentrator Portable Gaseous 2 L/min via Nasal Cannula Continuous For 99 months Narrative Medication Allergies and medications reviewed Review of Systems Except as stated in HPI: all other systems reviewed are Neg General / Constitutional: No: Fever Eyes: No: Visual changes HENT: No: Headaches Cardiovascular: No: Chest Pain or Discomfort Respiratory: Positive: Shortness of Breath Gastrointestinal: No: Abdominal Pain Genitourinary: No: Dysuria Musculoskeletal: No: Pain Skin: No Rash Neurologic: No: Weakness Psychiatric: No: Depression Endocrine: No: Polydipsia Hematologic/Lymphatic: No: Easy Bruising Physical Exam Narrative GENERAL: Awake alert oriented 3 no acute distress vital signs afebrile normal and stable SKIN: Warm and dry. Color is normal no diaphoresis cyanosis pallor or rashes HEAD: Atraumatic. Normocephalic. EYES: Pupils equal and round. No scleral icterus. No injection or drainage. ENT: No nasal bleeding or discharge. Mucous membranes pink and moist. NECK: Trachea midline. No JVD. Supple full range of motion CARDIOVASCULAR: Regular rate and rhythm. S1-S2 no murmurs rubs or gallops RESPIRATORY: No accessory muscle use. Clear to auscultation. Breath sounds equal bilaterally. GASTROINTESTINAL: Abdomen soft, non-tender, nondistended. Hepatic and splenic margins not palpable. MUSCULOSKELETAL: Extremities without clubbing, cyanosis, or edema. No obvious deformities. NEUROLOGICAL: Awake and alert. No obvious cranial nerve deficits. Motor grossly within normal limits. Five out of 5 muscle strength in the arms and legs. Normal speech. PSYCHIATRIC: Appropriate mood and affect; insight and judgment normal. Data Data Last Documented VS Vital Signs Date Time Temp Pulse Resp B/P (MAP) Pulse Ox O2 Delivery O2 Flow Rate FiO2 08/01/17 21:30 16 08/01/17 20:08 99 Room Air 08/01/17 18:17 98.1 79 149/66 (93) Orders Orders Complete Blood Count With Diff (08/01/17 18:34) Basic Metabolic Panel (Bmp) (08/01/17 18:34) B-Type Natriuretic Peptide (08/01/17 18:34) Act Partial Throm Time (Ptt) (08/01/17 18:34) Prothrombin Time / Inr (Pt) (08/01/17 18:34) Magnesium (Mg) (08/01/17 18:34) Ckmb (Isoenzyme) Profile (08/01/17 18:34) Troponin I (08/01/17 18:34) Electrocardiogram (08/01/17 18:34) Chest, Pa & Lat (08/01/17 18:34) Acetaminophen (Tylenol) (08/01/17 20:15) Tramadol (Ultram) (08/01/17 21:45) Blood Culture (08/01/17 22:04) Vancomycin Inj (Vancomycin Inj) (08/01/17 22:15) Piperacil-Tazo 3.375 Gm Premix (Zosyn 3. (08/01/17 22:15) Influenzae A/B Antigen (08/01/17 22:11) Admit Order (Ed Use Only) (08/01/17 22:12) Consult Hematology (08/01/17 ) Labs Laboratory Tests Test 08/01/17 19:40 White Blood Count 3.3 TH/MM3 Red Blood Count 4.46 MIL/MM3 Hemoglobin 13.8 GM/DL Hematocrit 41.7 % Mean Corpuscular Volume 93.4 FL Mean Corpuscular Hemoglobin 31.0 PG Mean Corpuscular Hemoglobin Concent 33.2 % Red Cell Distribution Width 17.6 % Platelet Count 353 TH/MM3 Mean Platelet Volume 7.7 FL Neutrophils (%) (Auto) 14.0 % Lymphocytes (%) (Auto) 28.7 % Monocytes (%) (Auto) 43.0 % Eosinophils (%) (Auto) 9.4 % Basophils (%) (Auto) 4.9 % Neutrophils # (Auto) 0.5 TH/MM3 Lymphocytes # (Auto) 0.9 TH/MM3 Monocytes # (Auto) 1.4 TH/MM3 Eosinophils # (Auto) 0.3 TH/MM3 Basophils # (Auto) 0.2 TH/MM3 CBC Comment AUTO DIFF Differential Total Cells Counted 100 Neutrophils % (Manual) 21 % Band Neutrophils % 2 % Lymphocytes % 21 % Monocytes % 47 % Eosinophils % 8 % Basophils % 1 % Neutrophils # (Manual) 0.8 TH/MM3 Differential Comment FINAL DIFF MANUAL Platelet Estimate NORMAL Platelet Morphology Comment NORMAL Spherocytes 1+ Ovalocytes 1+ Prothrombin Time 10.7 SEC Prothromb Time International Ratio 1.1 RATIO Activated Partial Thromboplast Time 23.4 SEC Blood Urea Nitrogen 16 MG/DL Creatinine 3.70 MG/DL Random Glucose 91 MG/DL Calcium Level 9.2 MG/DL Magnesium Level 2.3 MG/DL Sodium Level 135 MEQ/L Potassium Level 4.9 MEQ/L Chloride Level 99 MEQ/L Carbon Dioxide Level 30.7 MEQ/L Anion Gap 5 MEQ/L Estimat Glomerular Filtration Rate 12 ML/MIN Total Creatine Kinase 72 U/L Troponin I LESS THAN 0.02 NG/ML B-Type Natriuretic Peptide 137 PG/ML MDM Medical Decision Making Medical Screen Exam Complete: Yes Emergency Medical Condition: Yes Medical Record Reviewed: Yes Differential Diagnosis Shortness of breath, pneumonia, CHF, bacteremia, line sepsis from dialysis Narrative Course Patient laboratory examination reviewed, patient has low white blood cell count 3.7, with markedly decreased neutrophil count of 0.5. As laboratory examinations resulted, patient developed shaking chills and marked diaphoresis while in the room. Possible rigors with bacteremia by presentation. Patient pancultured and given vancomycin and Zosyn IV piggyback. Case discussed with Dr. Watkins, admitted with hematology oncology consultation Diagnosis Primary Impression: Bacteremia associated with intravascular line Qualified Codes: T82.7XXA - Infection and inflammatory reaction due to other cardiac and vascular devices, implants and grafts, initial encounter; R78.81 - Bacteremia Additional Impression: Neutropenia Qualified Codes: D70.9 - Neutropenia, unspecified Admitting Information Admitting Physician Requests: Observation Eric Moses MD Aug 01, 2017 22:40
[2017-08-01] MEDS ORDERED: Vancomycin Consult Pharmacy 1 EA OTHER SCH (22:45)
[2017-08-01] MEDS ORDERED: LEVOFLOXACIN 750 MG PREMIX INJ 150 ML IV SCH (22:45)
[2017-08-01] MEDS ORDERED: RESP: ALBUTEROL 2.5 MG/IPRATROPIUM 0.5 MG NEB (SCH) NEB ONE (23:00)
[2017-08-01 23:26] VITALS: O2SAT 100
[2017-08-01] MEDS: HEPARIN SODIUM - SQ 10,000 UNITS/ML VIAL SQ SCH (23:31)
[2017-08-01 23:32] VITALS: BP 136/63; PULSE 70; RESP 16; O2SAT 98
[2017-08-02] VITALS (23 sets, daily range): BP systolic 101–136; BP diastolic 50–88; PULSE 51–98; RESP 18–20; TEMP 97.7–98.1; O2SAT 97–100
[2017-08-02] MEDS: ALPRAZolam 1 MG TAB PO PRN ×2 (00:44→22:17)
[2017-08-02] MEDS ORDERED: PIPERACIL-TAZO 2.25 GM PREMIX 50 ML IV ONE (06:00)
[2017-08-02] MEDS ORDERED: FILGRASTIM 480 MCG/1.6 ML VIAL SQ ONE (08:00)
[2017-08-02] MEDS: INSULIN NovoLIN REGULAR SUPPLEMENTAL SCALE SQ SCH ×4 (08:00→20:56)
--- NOTE | 2017-08-02 08:45 | HHI.HP ---
History of Present Illness Primary Care Physician Alli Watkins MD Admission Diagnosis Neutropenia, possible Bacteremia Diagnoses: (1) Neutropenia (2) Bacteremia associated with intravascular line (3) Debility (4) Shortness of breath (5) Acute kidney injury superimposed on chronic kidney disease (6) Constipation due to opioid therapy (7) Chronic kidney disease (8) Colitis (9) ESRD (end stage renal disease) (10) COPD (chronic obstructive pulmonary disease) (11) DM (diabetes mellitus) History of Present Illness 66 Y CF, LONG HISTORY OF COLITIS, RF NOW ON HD. PT HAS BEEN HOME BOUND, COMES TO MY OFFICE HOWEVER WITH HER DAUGHTER. PT CONTINUES TO SMOKE AND HAS RECURRENT BRONCHITIS. SHE HAS GENERALLY DECLINED AND WAS VERY WEAK. DAUGHTER HAS BEEN LOOKING FOR PLACEMENT FOR HER ALSO AND YESTERDAY WE WERE ORGANIZING A 3008 AND POSSIBLE SNF PLACEMENT. PT BECAME SOB AND WEAK AND DAUGHTER BROUGHT HER TO THE ER. PT FOUND WITH LOW ANC AND STARTED W RIGORS IN THE ER. I WAS THUS CALLED FOR ADMISSION. PT RECEIVED IV ABX AND SEPSIS WORKUP BEGUN IN ER. PT IS OBVIOUSLY WEAKER AND HAS A HARSH CONGESTED COUGH. Sepsis Criteria SIRS Criteria (2 or more): Temp > 100.9 or < 96.8, WBC > 16552, < 4000 or > 10 % bands Sepsis Criteria (SIRS+source): Infect source susp/known Severe Sepsis (+one): Organ Dysfunction, Hypotension Criteria Outcome: Meets severe sepsis criteria Review of Systems ROS Limitations: Clinical Condition, Poor Historian Constitutional: COMPLAINS OF: Fatigue Respiratory: COMPLAINS OF: Cough Musculoskeletal: COMPLAINS OF: Joint pain Neurologic: COMPLAINS OF: Abnormal gait Except as stated in HPI: all other systems reviewed are Neg Past Family Social History Allergies: Coded Allergies: morphine (Verified Allergy, Severe, RASH, 07/09/17) ciprofloxacin (Verified Adverse Reaction, Intermediate, NAUSEAS, 07/09/17) codeine (Verified Adverse Reaction, Intermediate, Vertigo, 07/09/17) Past Medical History RF COPD SMOKER Past Surgical History HD PORT Active Ordered Medications Current Medications Medications (Trade) Dose Ordered Sig/Carlos Route Start Time Stop Time Status Last Admin (Xanax) 1 mg BID PRN PO 08/01/17 22:30 08/02/17 00:44 (Aspirin Chew) 81 mg DAILY CHEW 08/02/17 09:00 (Symbicort 160-4.5 Mcg Inh) 2 puff Q12HR INH 08/02/17 09:00 (Wellbutrin Sr) 150 mg DAILY PO 08/02/17 09:00 (Phoslo) 667 mg TIDPC PO 08/02/17 09:30 (Colace) 100 mg BID PRN PO 08/01/17 22:30 (Pepcid) 20 mg DAILY PO 08/02/17 09:00 (PROzac) 20 mg DAILY PO 08/02/17 09:00 (Neurontin) 100 mg BID PO 08/02/17 09:00 (Lactulose Liq) 30 ml TID PO 08/02/17 09:00 (Emla Cream) 1 applic BID PRN TOPICAL 08/01/17 22:30 (Proamatine) 10 mg TID PO 08/02/17 09:00 (Roxicodone) 10 mg Q6H PRN PO 08/01/17 22:30 08/02/17 06:11 (Zofran Odt) 4 mg Q6H PRN PO 08/01/17 22:45 (Glucagon Inj) 1 mg STAT PRN IM 08/01/17 22:30 (D50w (Vial) Inj) 50 ml UNSCH PRN IV PUSH 08/01/17 22:30 (Glucagon Inj) 1 mg UNSCH PRN OTHER 08/01/17 22:30 (NovoLIN R SUPPLEMENTAL SCALE) 1 ACHS SLIDING SCALE SQ 08/02/17 08:00 (NS Flush) 2 ml UNSCH PRN IV FLUSH 08/01/17 22:30 (NS Flush) 2 ml BID IV FLUSH 08/02/17 09:00 (Heparin Inj) 5,000 units Q12H SQ 08/01/17 23:00 08/01/17 23:31 (Narcan Inj) 0.4 mg UNSCH PRN IV PUSH 08/01/17 22:30 (Marixa-Colace) 1 tab BID PO 08/02/17 09:00 (Milk Of Magnesia Liq) 30 ml Q12H PRN PO 08/01/17 22:30 (Senokot) 17.2 mg Q12H PRN PO 08/01/17 22:30 (Dulcolax Supp) 10 mg DAILY PRN RECTAL 08/01/17 22:30 (Lactulose Liq) 30 ml DAILY PRN PO 08/01/17 22:30 Pharmacy Profile Note 0 ml @ 0 mls/hr UNSCH OTHER 08/01/17 22:45 Family History F CAD M UNKNOWN DGTR BIPOLAR Social History ONE PPD SMOKER LIVES W DGTR NO ETOH NO ILLICITS Physical Exam Vital Signs Vital Signs Date Time Temp Pulse Resp B/P (MAP) Pulse Ox O2 Delivery O2 Flow Rate FiO2 08/02/17 08:33 97.9 70 20 106/88 (94) 98 08/02/17 06:00 51 08/02/17 05:00 58 08/02/17 04:00 97.7 62 18 101/50 (67) 97 08/02/17 04:00 69 08/02/17 03:00 60 08/02/17 02:00 64 08/02/17 01:00 64 08/02/17 00:20 66 08/02/17 00:11 08/01/17 23:32 70 16 136/63 (87) 98 Nasal Cannula 2.00 08/01/17 23:26 100 Nasal Cannula 2.00 08/01/17 22:36 67 16 128/58 (81) 100 Room Air 08/01/17 21:30 16 08/01/17 20:08 18 99 Room Air 08/01/17 18:17 98.1 79 18 149/66 (93) 99 Physical Exam GENERAL: This is a well-nourished, well-developed patient, in no apparent distress. SKIN: No rashes, ecchymoses or lesions. Cool and dry. HEAD: Atraumatic. Normocephalic. No temporal or scalp tenderness. EYES: Pupils equal round and reactive. Extraocular motions intact. No scleral icterus. No injection or drainage. ENT: Nose without bleeding, purulent drainage or septal hematoma. Throat without erythema, tonsillar hypertrophy or exudate. Uvula midline. Airway patent. NECK: Trachea midline. No JVD or lymphadenopathy. Supple, nontender, no meningeal signs. CARDIOVASCULAR: Regular rate and rhythm without murmurs, gallops, or rubs. RESPIRATORY: bilat rales and ronchi, weak very congested cough, left base crackles GASTROINTESTINAL: Abdomen soft, non-tender, nondistended. No hepato-splenomegaly , or palpable masses. No guarding. MUSCULOSKELETAL: Extremities without clubbing, cyanosis, or edema. No joint tenderness, effusion, or edema noted. No calf tenderness. Negative Homans sign bilaterally. NEUROLOGICAL: Awake and alert. Cranial nerves II through XII intact. Motor and sensory grossly within normal limits. 1 out of 5 muscle strength in all muscle groups. Normal speech. Laboratory Laboratory Tests Test 08/01/17 19:40 White Blood Count 3.3 Red Blood Count 4.46 Hemoglobin 13.8 Hematocrit 41.7 Mean Corpuscular Volume 93.4 Mean Corpuscular Hemoglobin 31.0 Mean Corpuscular Hemoglobin Concent 33.2 Red Cell Distribution Width 17.6 Platelet Count 353 Mean Platelet Volume 7.7 Neutrophils (%) (Auto) 14.0 Lymphocytes (%) (Auto) 28.7 Monocytes (%) (Auto) 43.0 Eosinophils (%) (Auto) 9.4 Basophils (%) (Auto) 4.9 Neutrophils # (Auto) 0.5 Lymphocytes # (Auto) 0.9 Monocytes # (Auto) 1.4 Eosinophils # (Auto) 0.3 Basophils # (Auto) 0.2 CBC Comment AUTO DIFF Differential Total Cells Counted 100 Neutrophils % (Manual) 21 Band Neutrophils % 2 Lymphocytes % 21 Monocytes % 47 Eosinophils % 8 Basophils % 1 Neutrophils # (Manual) 0.8 Differential Comment FINAL DIFF MANUAL Platelet Estimate NORMAL Platelet Morphology Comment NORMAL Spherocytes 1+ Ovalocytes 1+ Prothrombin Time 10.7 Prothromb Time International Ratio 1.1 Activated Partial Thromboplast Time 23.4 Blood Urea Nitrogen 16 Creatinine 3.70 Random Glucose 91 Calcium Level 9.2 Magnesium Level 2.3 Sodium Level 135 Potassium Level 4.9 Chloride Level 99 Carbon Dioxide Level 30.7 Anion Gap 5 Estimat Glomerular Filtration Rate 12 Total Creatine Kinase 72 Troponin I LESS THAN 0.02 B-Type Natriuretic Peptide 137 Date/Time Source Procedure Growth Status 08/01/17 22:30 Blood Peripheral Aerobic Blood Culture Pending Received 08/01/17 22:30 Blood Peripheral Anaerobic Blood Culture Pending Received 08/01/17 22:32 Nasal Washing Influenza Types A,B Antigen (LIV) - Final NEGATIVE FOR FLU A AND B ANTIGEN.... Complete Result Diagram: 08/01/17193908/01/171939 Imaging Last 72 hours Impressions Chest X-Ray 08/01/17 1834 Signed Impressions: Service Date/Time: July 18:47 - CONCLUSION: Chronic left base consolidation/scarring with volume loss. No acute cardiopulmonary disease demonstrated. Jose Rainey MD Capsloan VTE Risk Assessment Caprini VTE Risk Assessment: Mod/High Risk (score >= 2) VTE Pharm Contraindication: High risk for bleeding Caprini Risk Assessment Model Point Value = 1 Point Value = 2 Point Value = 3 Point Value = 5 Age 41-60 Minor surgery BMI > 25 kg/m2 Swollen legs Varicose veins or History of unexplained or recurrent spontaneous Oral contraceptives or hormone replacement Sepsis (< 1 month) Serious lung disease, including pneumonia (< 1 month) Abnormal pulmonary function Acute myocardial infarction Congestive heart failure (< 1 month) History of inflammatory bowel disease Medical patient at bed rest Age 61-74 Arthroscopic surgery Major open surgery (> 45 min) Laparoscopic surgery (> 45 min) Malignancy Confined to bed (> 72 hours) Immobilizing plaster cast Central venous access Age >= 75 History of VTE Family history of VTE Factor V Leiden Prothrombin [id number] Lupus anticoagulant Anticardiolipin antibodies Elevated serum homocysteine Heparin-induced thrombocytopenia Other congenital or acquired thrombophilia Stroke (< 1 month) Elective arthroplasty Hip, pelvis, or leg fracture Acute spinal cord injury (< 1 month) Prophylaxis Regimen Total Risk Factor Score Risk Level Prophylaxis Regimen 0-1 Low Early ambulation 2 Moderate Order ONE of the following: *Sequential Compression Device (SCD) *Heparin 5000 units SQ BID 3-4 Higher Order ONE of the following medications: *Heparin 5000 units SQ TID *Enoxaparin/Lovenox 40 mg SQ daily (WT < 150 kg, CrCl > 30 mL/min) *Enoxaparin/Lovenox 30 mg SQ daily (WT < 150 kg, CrCl > 10-29 mL/min) *Enoxaparin/Lovenox 30 mg SQ BID (WT < 150 kg, CrCl > 30 mL/min) AND/OR *Sequential Compression Device (SCD) 5 or more Highest Order ONE of the following medications: *Heparin 5000 units SQ TID (Preferred with Epidurals) *Enoxaparin/Lovenox 40 mg SQ daily (WT < 150 kg, CrCl > 30 mL/min) *Enoxaparin/Lovenox 30 mg SQ daily (WT < 150 kg, CrCl > 10-29 mL/min) *Enoxaparin/Lovenox 30 mg SQ BID (WT < 150 kg, CrCl > 30 mL/min) AND *Sequential Compression Device (SCD) Assessment and Plan Problem List: (1) Sepsis ICD Codes: A41.9 - Sepsis, unspecified organism Status: Acute Plan: SEE SEPSIS WORKUP AND IV ABX (2) Pneumonia, bacterial ICD Codes: J15.9 - Unspecified bacterial pneumonia Status: Acute Plan: IV ABX, DUONEBS, MONITOR CULTURES, (3) Impaired mobility and activities of daily living ICD Codes: Z74.09 - Other reduced mobility Status: Acute Plan: PT EVAL HEPARIN FOR DVT PX PROTONIX FOR GI PX (4) Bacteremia associated with intravascular line ICD Codes: T82.7XXA - Infection and inflammatory reaction due to other cardiac and vascular devices, implants and grafts, initial encounter; R78.81 - Bacteremia Status: Acute Plan: BROAD SPECTRUM IN CASE OF SEPSIS (5) Neutropenia ICD Codes: D70.9 - Neutropenia, unspecified Status: Chronic Plan: HEMO ONC CONSULT, NEUTROPENIC PREC (6) COPD (chronic obstructive pulmonary disease) ICD Codes: J44.9 - Chronic obstructive pulmonary disease, unspecified Status: Chronic (7) Shortness of breath ICD Codes: R06.02 - Shortness of breath (8) Colitis ICD Codes: K52.9 - Noninfective gastroenteritis and colitis, unspecified (9) ESRD (end stage renal disease) ICD Codes: N18.6 - End stage renal disease Status: Chronic Plan: RENAL CONSULT (10) Debility ICD Codes: R53.81 - Other malaise (11) DM (diabetes mellitus) ICD Codes: E11.9 - Type 2 diabetes mellitus without complications Status: Acute Plan: INSULIN SLIDING SCALE (12) Chronic kidney disease ICD Codes: N18.9 - Chronic kidney disease, unspecified Status: Chronic (13) Constipation due to opioid therapy ICD Codes: K59.03 - Drug induced constipation; T40.2X5A - Adverse effect of other opioids, initial encounter Discharge Planning OBS FOR NOW, MAY BE SOCIAL SITUATION GOING HOME WITH DAUGHTER THE DAUGHTER IS HAVING SURGERY ON SATURDAY AND WILL BE UNABLE TO CARE FOR HER AT HOME SHE USUALLY DOES... Problem Qualifiers (1) Neutropenia: Qualified Codes: D70.9 - Neutropenia, unspecified (2) Bacteremia associated with intravascular line: Qualified Codes: T82.7XXA - Infection and inflammatory reaction due to other cardiac and vascular devices, implants and grafts, initial encounter; R78.81 - Bacteremia Alli Watkins MD Aug 02, 2017 08:45
[2017-08-02] MEDS: LACTULOSE SYRUP 20 GM/30 ML CUP PO SCH ×3 (08:49→18:46)
[2017-08-02] MEDS: ONDANSETRON ODT 4 MG TAB PO PRN (08:49)
[2017-08-02] MEDS: GABAPENTIN 100 MG CAP PO SCH ×2 (08:50→20:36)
[2017-08-02] MEDS: CALCIUM ACETATE 667 MG CAP PO SCH ×3 (08:51→18:46)
[2017-08-02] MEDS: ASPIRIN 81 MG CHEW TAB CHEW SCH (08:51)
[2017-08-02] MEDS: FLUoxetine HCL 20 MG CAP PO SCH (08:51)
[2017-08-02] MEDS: MIDODRINE 5 MG TAB PO SCH ×3 (08:51→17:24)
[2017-08-02] MEDS: buPROPion HCL 150 MG SUSTAINED RELEASE TAB PO SCH (08:52)
[2017-08-02] MEDS: DOCUSATE SODIUM 50 MG/SENNA 8.6 MG TAB PO SCH ×2 (08:52→20:37)
[2017-08-02] MEDS: BUDESONIDE-FORMOTEROL 160/4.5 MCG INHALER INH SCH ×2 (08:53→20:36)
[2017-08-02] MEDS: FAMOTIDINE 20 MG TAB PO SCH (08:53)
[2017-08-02] MEDS: SODIUM CHLORIDE 0.9% FLUSH 10 ML FLUSH IV FLUSH SCH ×2 (08:53→20:37)
[2017-08-02] MEDS ORDERED: PIPERACIL-TAZO 3.375 GM PREMIX 50 ML IV SCH (10:00)
[2017-08-02] MEDS: HEPARIN SODIUM - SQ 10,000 UNITS/ML VIAL SQ SCH ×2 (11:12→22:17)
[2017-08-02] MEDS: RESP: ALBUTEROL 2.5 MG/IPRATROPIUM 0.5 MG NEB (SCH) NEB ×3 (12:00→21:07)
--- NOTE | 2017-08-02 13:42 | MB ---
cc: JOHN CARDENAS MD DATE OF CONSULTATION 08/02/[address] Watkins REASON FOR CONSULTATION Sepsis HISTORY OF PRESENT ILLNESS This is a 66-year-old white female who was admitted to the hospital with shortness of breath. The patient has a history of cyclic neutropenia. The temperature was normal on presentation. A white count was 3.3 with 43% monocytes, 28 lymphocytes and 14% neutrophils. The patient has a history of autoimmune neutropenia. She receive medications for neutropenia periodically. While the patient was in the emergency department, she developed shaking chills and diaphoresis. Cultures were obtained and she was started on Zosyn and was given vancomycin. The patient undergoes hemodialysis. She gets her dialysis on Tuesdays, and Saturdays. The dialysis is given through a left upper extremity AV fistula. The patient tells me that she feels better, but she does have some phlegm which she has difficulty bringing up. She also notes that she had mild chest pain at the mid chest and underneath the left rib cage. Chest x-ray shows chronic left base consolidation/scarring with volume loss. The patient has no nausea or vomiting. She was admitted recently in June and was found to have constipation. This was felt to be a likely secondary to daily opioid use. The results of colonoscopy showed mild gastritis and colitis with colon ulcerations in the sigmoid. Pathology on the sigmoid biopsy reported that the pattern may be seen with ischemic colitis or pseudomembranous colitis. The patient did receive Levaquin during the hospitalization. Currently she states that her bowel movements are normal. PAST MEDICAL HISTORY 1. COPD 2. Anxiety/depression 3. Coronary artery disease 4. Gastroesophageal reflux disease 5. Osteoarthritis 6. History of above aneurysm. 7. History of right femur fracture treated surgically. 8. Cholecystectomy 9. Brain aneurysm treatment with stent 10. Squamous cell carcinoma of the lung treated surgically. ALLERGIES CIPRO, CODEINE, MORPHINE. MEDICATIONS 1. Piperacillin/tazobactam 2. PhosLo 3. Aspirin 4. Symbicort 5. Pepcid 6. Wellbutrin 7. Prozac 8. Neurontin 9. Lactulose 10. Proamatine 11. Marixa-Colace 12. Supplemental insulin 13. Xanax SOCIAL HISTORY The patient smokes three-quarter pack of cigarettes a day. Denies alcohol use. Denies illicit drugs. FAMILY HISTORY Noncontributory REVIEW OF SYSTEMS Significant for shortness of breath, chest pain and numbness of the hands, otherwise negative on 10-point review. PHYSICAL EXAMINATION This is a well-developed female who is in no acute distress. She is awake and alert and oriented. VITALS: Temperature 98.1, BP 131/58, respirations 20, heart rate 64. HEENT: The head is atraumatic. Extraocular movements grossly intact, pupils reactive to light. No icterus. Oropharynx moist mucosa without lesions. NECK: Supple without adenopathy. LUNGS: Decreased breath sounds. No audible rhonchi. HEART: Regular S1 and S2. No murmurs, rubs or gallops heard. ABDOMEN: Bowel sounds present, soft, nontender. No palpable masses. RECTAL: Not performed. EXTREMITIES: No clubbing or cyanosis or edema. SKIN: No rash. NEUROLOGIC: Grossly nonfocal. PSYCHIATRIC: The patient is calm and cooperative. LABORATORY DATA WBC 3.3, platelets 353, hemoglobin 13.8, 43% monocytes, 28% lymphocytes, creatinine 3.70, BUN 16, estimated GFR 12, sodium 135. IMPRESSION 1. Probable pneumonia in a patient who presented with respiratory symptoms and has abnormal chest x-ray and chest pain. 2. Rule out bacteremia in a patient who also had shaking chills. 3. 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 4. End stage renal disease receiving hemodialysis, possible dialysis related infection. The patient last had dialysis yesterday. Currently the patient appears clinically stable. RECOMMENDATIONS 1. Obtain sputum for culture. 2. Follow the blood cultures 3. Continue Piperacillin/Tazobactam. 4. Give with oral metronidazole in light of her history of recent colitis 5. Monitor clinical status. Thank you this consultation. The patient's progress will be monitored and further recommendations will be given upon followup if necessary. John Cardenas MD FD/ERLIN /12:17 PM /1:10 PM
--- NOTE | 2017-08-02 14:43 | EKG ---
Date Performed: 08/01/2017 Time Performed: 19:54:22 PTAGE: 66 years EKG: Sinus rhythm Since previous tracing, no significant change noted NORMAL ECG PREVIOUS TRACING : 12/21/2016 17.14 DOCTOR: Leora Marin Interpretating Date/Time 08/02/2017 14:41:40
[2017-08-02] MEDS ORDERED: SODIUM CHLOR 0.9% 1000 ML INJ 1,000 ML IV PRN (17:09)
[2017-08-02] MEDS ORDERED: SODIUM CHLOR 0.9% 1000 ML INJ 1,000 ML OTHER PRN ×2 (17:09)
[2017-08-02] MEDS ORDERED: GELATIN 12 MM/7 MM FOAM TOP PRN (17:15)
[2017-08-02] MEDS ORDERED: cloNIDine HCL 0.1 MG TAB PO PRN (17:15)
[2017-08-02] MEDS ORDERED: MANNITOL 12.5 GM/50 ML VIAL IV PRN (17:15)
[2017-08-02] MEDS ORDERED: diphenhydrAMINE HCL 25 MG CAP PO PRN (17:15)
[2017-08-02] MEDS ORDERED: HEPARIN SODIUM - IV 10,000 UNITS/10 ML VIAL IV FLUSH PRN (17:15)
[2017-08-02] MEDS ORDERED: ALBUMIN 25% INJ 100 ML IV PRN (17:15)
[2017-08-02] MEDS ORDERED: ONDANSETRON HCL 4 MG/2 ML VIAL IV PUSH PRN (17:15)
[2017-08-02] MEDS ORDERED: ACETAMINOPHEN 325 MG TAB PO PRN (17:15)
[2017-08-02] MEDS ORDERED: SODIUM CHLORIDE 0.9% FLUSH 10 ML FLUSH IV FLUSH PRN (17:15)
[2017-08-02] MEDS ORDERED: NITROGLYCERIN 0.4 MG SL 25 TABS/BTL SL PRN (17:15)
[2017-08-02] MEDS: PIPERACIL-TAZO 2.25 GM PREMIX 50 ML IV SCH ×2 (17:24→22:17)
--- NOTE | 2017-08-02 17:26 | PD.CONS ---
HPI Service Nephrology Consult Requested By Dr. Watkins Reason for Consult ESRD management Primary Care Physician Alli Watkins MD History of Present Illness Patient is a 66-year-old white female with history of lung cancer status post wedge resection, she is a smoker and continues to smoke, ESRD, she has upper respiratory tract infection and has been recently discharged from the hospital, she had colonoscopy and biopsy showed colitis Possible ischemic versus pseudomembranous She had abdominal pain, chronic bronchitis Hemodialysis was done yesterday she goes on Saturday and Saturdays Review of Systems Constitutional: COMPLAINS OF: Fatigue Respiratory: COMPLAINS OF: Cough, Shortness of breath Gastrointestinal: COMPLAINS OF: Abdominal pain, Constipation Musculoskeletal: COMPLAINS OF: Joint pain, Back pain Psychiatric: COMPLAINS OF: Anxiety, Confusion Past Family Social History Allergies: Coded Allergies: morphine (Verified Allergy, Severe, RASH, 07/09/17) ciprofloxacin (Verified Adverse Reaction, Intermediate, NAUSEAS, 07/09/17) codeine (Verified Adverse Reaction, Intermediate, Vertigo, 07/09/17) Past Medical History Lung cancer Continue to smoke cigarettes ESRD Hypertension Leukopenia Autoimmune neutropenia Anemia Bronchitis/pneumonia Abdominal pain Constipation Urinary retention with burning/UTI Foodborne hepatitis infection Osteoarthritis GERD Past Surgical History Wedge resection of the lung AV fistula left Tubal ligation Cholecystectomy Right hip nail Brain aneurysm clipped Reported Medications Reported Meds & Active Scripts Active Oxycodone (Oxycodone HCl) 10 Mg Tab 10 Mg PO Q6HR PRN Xanax (Alprazolam) 1 Mg Tab 1 Mg PO BID PRN Vitamin D3 (Cholecalciferol) 2,000 Unit Cap 2,000 Units PO DAILY Fluoxetine (Fluoxetine HCl) 20 Mg Tab 20 Mg PO DAILY Midodrine 10 Mg Tab 10 Mg PO TID Calcium Acetate (Calcium Acetate (Phosphate Bin) 667 Mg Cap 667 Mg PO TIDPC Famotidine 20 Mg Tab 20 Mg PO DAILY Docusate Sodium 100 Mg Cap 100 Mg PO BID PRN Spiriva Handihaler (Tiotropium Inh) 18 Mcg Cap 18 Mcg INH DAILY 30 Days 1 capsule = 18 mcg Reported Nitroglycerin SL (Nitroglycerin) 0.4 Mg Subl 0.4 Mg SL DIRECTED PRN ONE TABLET UNDER THE TONGUE NEEDED FOR CHEST PAIN, MAY REPEAT EVERY FIVE MINUTES FOR A TOTAL OF 3 DOSES OR CALL 911 IF NO RELIEF Lactulose Liq (Lactulose) 10 Gm/15 Ml Soln 30 Ml PO TID Gabapentin 100 Mg Cap 100 Mg PO BID Bupropion HCl ER 24 HR (Bupropion HCl) 150 Mg Tab 150 Mg PO DAILY Proair Hfa 8.5 GM Inh (Albuterol Sulfate) 90 Mcg/Act Aer 2 Puff INH Q4-6H PRN 108 mcg/actuation Lidopril Topical (Lidocaine-Prilocaine Topical) 2.5-2.5 % Cream 1 Applic TOPICAL BID PRN Zofran (Ondansetron HCl) 4 Mg Tab 4 Mg PO Q6HR PRN Dialyvite 800 (B-Complex W/ C & Folic Acid) 1 Tab Ventolin Hfa 18 GM Inh (Albuterol Sulfate) 90 Mcg/Act Aer 2 Puff INH Q4-6H PRN Tums (Calcium Carbonate (Antacid)) 500 Mg Chew 500 Mg CHEW PRN Symbicort Inh (Budesonide/Formoterol Fumarate) 160-4.5 Mcg/Act Aero 2 Puff INH Q12HR Mucinex DM (Dextromethorphan-Guaifenesin) 30-600 Mg Tab 2 Tab PO BID PRN Aspirin 81 Mg Chew 81 Mg CHEW DAILY Oxygen tank (Oxygen) 1 Ea Tank 2 Liter EDUARDO.CANSimply Measured HS Oxygen Concentrator Portable Gaseous 2 L/min via Nasal Cannula Continuous For 99 months Active Ordered Medications Current Medications Medications (Trade) Dose Ordered Sig/Carlos Route Start Time Stop Time Status Last Admin (Xanax) 1 mg BID PRN PO 08/01/17 22:30 08/02/17 00:44 (Aspirin Chew) 81 mg DAILY CHEW 08/02/17 09:00 08/02/17 08:51 (Symbicort 160-4.5 Mcg Inh) 2 puff Q12HR INH 08/02/17 09:00 08/02/17 08:53 (Wellbutrin Sr) 150 mg DAILY PO 08/02/17 09:00 08/02/17 08:52 (Phoslo) 667 mg TIDPC PO 08/02/17 09:30 08/02/17 13:06 (Colace) 100 mg BID PRN PO 08/01/17 22:30 (Pepcid) 20 mg DAILY PO 08/02/17 09:00 08/02/17 08:53 (PROzac) 20 mg DAILY PO 08/02/17 09:00 2/9/18 08:51 (Neurontin) 100 mg BID PO 08/02/17 09:00 08/02/17 08:50 (Lactulose Liq) 30 ml TID PO 08/02/17 09:00 08/02/17 13:09 (Emla Cream) 1 applic BID PRN TOPICAL 08/01/17 22:30 (Proamatine) 10 mg TID PO 08/02/17 09:00 08/02/17 13:06 (Roxicodone) 10 mg Q6H PRN PO 08/01/17 22:30 08/02/17 13:07 (Zofran Odt) 4 mg Q6H PRN PO 08/01/17 22:45 08/02/17 08:49 (Glucagon Inj) 1 mg STAT PRN IM 08/01/17 22:30 (D50w (Vial) Inj) 50 ml UNSCH PRN IV PUSH 08/01/17 22:30 (Glucagon Inj) 1 mg UNSCH PRN OTHER 08/01/17 22:30 (NovoLIN R SUPPLEMENTAL SCALE) 1 ACHS SLIDING SCALE SQ 08/02/17 08:00 (NS Flush) 2 ml UNSCH PRN IV FLUSH 08/01/17 22:30 (NS Flush) 2 ml BID IV FLUSH 08/02/17 09:00 08/02/17 08:53 (Heparin Inj) 5,000 units Q12H SQ 08/01/17 23:00 08/02/17 11:12 (Narcan Inj) 0.4 mg UNSCH PRN IV PUSH 08/01/17 22:30 (Marixa-Colace) 1 tab BID PO 08/02/17 09:00 08/02/17 08:52 (Milk Of Magnesia Liq) 30 ml Q12H PRN PO 08/01/17 22:30 (Senokot) 17.2 mg Q12H PRN PO 08/01/17 22:30 (Dulcolax Supp) 10 mg DAILY PRN RECTAL 08/01/17 22:30 (Lactulose Liq) 30 ml DAILY PRN PO 08/01/17 22:30 Pharmacy Profile Note 0 ml @ 0 mls/hr UNSCH OTHER 08/01/17 22:45 (Duoneb Neb) 1 ampule QID NEB NEB 08/02/17 12:00 08/02/17 16:49 Piperacillin Sod/ Tazobactam Sod 50 ml @ 100 mls/hr Q6H IV 08/02/17 17:00 Sodium Chloride 1,000 ml @ 0 mls/hr Q0M PRN OTHER 08/02/17 17:09 UNV (Heparin Inj) 8,000 units UNSCH PRN IV FLUSH 08/02/17 17:15 UNV Sodium Chloride 1,000 ml @ 200 mls/hr Q5H PRN IV 08/02/17 17:09 UNV Sodium Chloride 1,000 ml @ 0 mls/hr Q0M PRN OTHER 08/02/17 17:09 UNV (Mannitol Inj) 12.5 gm UNSCH PRN IV 08/02/17 17:15 UNV Albumin Human 100 ml @ 60 mls/hr UNSCH PRN IV 08/02/17 17:15 UNV (NS Flush) 5 ml UNSCH PRN IV FLUSH 08/02/17 17:15 UNV (Zofran Inj) 4 mg UNSCH PRN IV PUSH 08/02/17 17:15 UNV (Tylenol) 650 mg UNSCH PRN PO 08/02/17 17:15 UNV (Benadryl) 25 mg UNSCH PRN PO 08/02/17 17:15 UNV (Nitrostat Sl) 0.4 mg UNSCH PRN SL 08/02/17 17:15 UNV Family History Noncontributory lives with her daughter Social History 1 pack per day cigarette smoking Denies alcohol Physical Exam Vital Signs Vital Signs Date Time Temp Pulse Resp B/P (MAP) Pulse Ox O2 Delivery O2 Flow Rate FiO2 08/02/17 16:49 99 21 08/02/17 15:57 97.7 60 18 112/60 (77) 98 08/02/17 12:58 120/64 (82) 08/02/17 12:04 97 08/02/17 12:00 65 08/02/17 11:13 98.1 64 20 131/58 (82) 97 08/02/17 08:33 97.9 70 20 106/88 (94) 98 08/02/17 08:00 63 08/02/17 06:00 51 08/02/17 05:00 58 08/02/17 04:00 97.7 62 18 101/50 (67) 97 08/02/17 04:00 69 08/02/17 03:00 60 08/02/17 02:00 64 08/02/17 01:00 64 08/02/17 00:20 66 08/02/17 00:11 08/01/17 23:32 70 16 136/63 (87) 98 Nasal Cannula 2.00 08/01/17 23:26 100 Nasal Cannula 2.00 08/01/17 22:36 67 16 128/58 (81) 100 Room Air 08/01/17 21:30 16 08/01/17 20:08 18 99 Room Air 08/01/17 18:17 98.1 79 18 149/66 (93) 99 Physical Exam GENERAL: Well-nourished, well-developed patient. SKIN: Warm and dry. HEAD: Normocephalic. EYES: No scleral icterus. No injection or drainage. NECK: Supple, trachea midline. No JVD or lymphadenopathy. CARDIOVASCULAR: Regular rate and rhythm without murmurs, gallops, or rubs. RESPIRATORY: Breath sounds diminished at bases GASTROINTESTINAL: Abdomen soft, non-tender, nondistended. EXTREMITIES: No cyanosis, or edema. AV fistula left arm NEUROLOGICAL: Awake, alert, and oriented x 3. Non-focal. Laboratory Laboratory Tests Test 08/01/17 19:40 White Blood Count 3.3 Red Blood Count 4.46 Hemoglobin 13.8 Hematocrit 41.7 Mean Corpuscular Volume 93.4 Mean Corpuscular Hemoglobin 31.0 Mean Corpuscular Hemoglobin Concent 33.2 Red Cell Distribution Width 17.6 Platelet Count 353 Mean Platelet Volume 7.7 Neutrophils (%) (Auto) 14.0 Lymphocytes (%) (Auto) 28.7 Monocytes (%) (Auto) 43.0 Eosinophils (%) (Auto) 9.4 Basophils (%) (Auto) 4.9 Neutrophils # (Auto) 0.5 Lymphocytes # (Auto) 0.9 Monocytes # (Auto) 1.4 Eosinophils # (Auto) 0.3 Basophils # (Auto) 0.2 CBC Comment AUTO DIFF Differential Total Cells Counted 100 Neutrophils % (Manual) 21 Band Neutrophils % 2 Lymphocytes % 21 Monocytes % 47 Eosinophils % 8 Basophils % 1 Neutrophils # (Manual) 0.8 Differential Comment FINAL DIFF MANUAL Platelet Estimate NORMAL Platelet Morphology Comment NORMAL Spherocytes 1+ Ovalocytes 1+ Prothrombin Time 10.7 Prothromb Time International Ratio 1.1 Activated Partial Thromboplast Time 23.4 Blood Urea Nitrogen 16 Creatinine 3.70 Random Glucose 91 Calcium Level 9.2 Magnesium Level 2.3 Sodium Level 135 Potassium Level 4.9 Chloride Level 99 Carbon Dioxide Level 30.7 Anion Gap 5 Estimat Glomerular Filtration Rate 12 Total Creatine Kinase 72 Troponin I LESS THAN 0.02 B-Type Natriuretic Peptide 137 Date/Time Source Procedure Growth Status 08/01/17 22:30 Blood Peripheral Aerobic Blood Culture - Preliminary NO GROWTH IN 1 DAY Resulted 08/01/17 22:30 Blood Peripheral Anaerobic Blood Culture - Preliminary NO GROWTH IN 1 DAY Resulted 08/01/17 22:32 Nasal Washing Influenza Types A,B Antigen (LIV) - Final NEGATIVE FOR FLU A AND B ANTIGEN.... Complete Result Diagram: 08/01/17193908/01/171939 Imaging Last Impressions Chest X-Ray 08/01/17 1834 Signed Impressions: Service Date/Time: July 18:47 - CONCLUSION: Chronic left base consolidation/scarring with volume loss. No acute cardiopulmonary disease demonstrated. Jose Rainey MD Assessment and Plan Problem List: (1) ESRD (end stage renal disease) ICD Codes: N18.6 - End stage renal disease Status: Chronic Plan: Patient is going to do dialysis on Saturday, and Saturdays is scheduled for tomorrow Continue supportive care Monitor cultures (2) Neutropenia ICD Codes: D70.9 - Neutropenia, unspecified Status: Chronic Plan: Monitor blood count (3) COPD (chronic obstructive pulmonary disease) ICD Codes: J44.9 - Chronic obstructive pulmonary disease, unspecified Status: Chronic Plan: History of lung cancer and continue to smoke cigarette, I have advised to stop smoking Problem Qualifiers (1) Neutropenia: Qualified Codes: D70.9 - Neutropenia, unspecified Oscar Jurado MD Aug 02, 2017 17:26
[2017-08-02] MEDS: NICOTINE 14 MG/24 HR PATCH T-DERMAL SCH (20:52)
[2017-08-02] MEDS ORDERED: REMOVE OLD PATCH T-DERMAL SCH (21:00)
--- NOTE | 2017-08-02 23:00 | MB ---
cc: TRICIA HUTCHINSON MD DATE OF CONSULTATION: 08/02/2017. REASON FOR CONSULTATION: Neutropenia. REFERRING PHYSICIAN: Consult requested by the primary care physician. CHIEF COMPLAINT/HPI: Ms. Hylton reports having had chills, sweats and shakes. She reports feeling nauseated and fatigued. She was brought into the emergency department by her daughter last night. The patient was noted to have sepsis syndrome. She was admitted to the hospital and initiated on broad-spectrum antibiotics and was also resuscitated with IV fluids. She is presently on Zosyn and vancomycin. Hemodialysis has been resumed. Absolute neutrophil count at the time of admission was noted to be 0.5, her total white blood cell count was 3.3. The hematology service has been asked to see her for management of neutropenia. She does have a history of autoimmune neutropenia. PAST MEDICAL HISTORY: 1. Autoimmune neutropenia. 2. End-stage renal failure on hemodialysis. 3. Personal history of nonsmall cell carcinoma of the lung, which was previously resected and currently remains in remission. 4. Anxiety. 5. Chronic pain. 6. Peripheral neuropathy. 7. Previous history of alcoholism. 8. Previous personal history of tobaccoism. PAST SURGICAL HISTORY: 1. Thoracotomy with wedge resection of a left sided lung mass. 2. She reports having had an aneurysm "coiled" in her neck. 3. Cholecystectomy. 4. Tubal ligation. 5. Heart catheterization. 6. Achilles tendon repair. 7. Open reduction internal fixation of the right ankle. 8. AV fistula creation in the left arm. ALLERGIES: 1. MORPHINE. 2. CODEINE WHICH CAUSED CONFUSION. 3. CIPROFLOXACIN WHICH CAUSES NAUSEA AND VOMITING. FAMILY HISTORY: Mother of leukemia. Father of hepatic cirrhosis. A sister of breast cancer. A brother of lung cancer. Her daughter has lupus. SOCIAL HISTORY: The patient lives with her daughter. She is a smoker, smoking close to a half-a-pack a day. 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 She relocated to [place] a little over a year ago. CURRENT INPATIENT MEDICATIONS: 1. Zosyn 2.2 grams IV per protocol. 2. Vancomycin x1 and with pharmacy dosing. 3. Tylenol 650 milligrams p.o. x1. 4. Albuterol / Ipratropium one ampule four times a day as needed. 5. Alprazolam 1 milligrams p.o. twice a day. 6. Aspirin 81 milligrams once daily. 7. Symbicort two puffs inhaled q. 12 hours. 8. PhosLo 667 milligrams p.o. three times a day. 9. Senna / Colace one tablet p.o. twice a day. 10. Famotidine 20 milligrams p.o. daily. 11. Filgrastim 480 micrograms subcutaneous x1. 12. Fluoxetine 200 milligrams p.o. x1. 13. Heparin 5000 units subcutaneous q. 12 hours. 14. Lactulose 30 mL p.o. three times a day. 15. Zofran 4 milligrams IV q. 6 hours as needed for nausea and vomiting. 16. Oxycodone 10 milligrams p.o. q. 6 hours as needed for pain. 17. Nicotine transdermal patch 14 milligram patch every 24 hours. 18. Tramadol 50 milligrams p.o. x1. REVIEW OF SYSTEMS: The patient reports having chills, weakness, sweats, fatigue, she reports loss of appetite. She reports lightheadedness. She denies difficulty swallowing or soreness of the throat. Respiratory: Denies difficulty breathing with exertion. Denies chest pain, paroxysmal nocturnal dyspnea, orthopnea. Denies lower extremity swelling. [employer] OUTFITTER: No focal sensory or motor deficits report. No other complaints reported. PHYSICAL EXAMINATION: VITAL SIGNS: Temperature 97.7 degrees Fahrenheit, heart rate ranging between 60 and 75 beats a minute, respiratory rate 18, blood pressure 112/60, O2 sats 99% on room air. GENERAL PHYSICAL APPEARANCE: Ms. Hylton is an elderly lady, she is laying in bed, she appears to be in no acute distress and has a pleasant disposition. HEAD, EYES, EARS, NOSE, THROAT: Head is atraumatic and normocephalic. Conjunctivae are pale. The sclerae are anicteric. Extraocular muscles intact. Pupils equal, round and reactive to light and accommodation. ORAL EXAM: No pharyngeal erythema. NECK EXAM: No palpable cervical or supraclavicular lymphadenopathy. RESPIRATORY EXAM: Good air movement bilaterally. No added breath sounds. She does have prolonged expiratory phase. CARDIOVASCULAR EXAM: Regular rate and rhythm. S1, S2. No obvious murmurs, rubs or gallops. ABDOMINAL EXAM: Protuberant belly. The abdomen is soft, nontender and nondistended. No palpable organ enlargement. LOWER EXTREMITIES: No pretibial edema. No calf tenderness. WO[employer] OUTFITTER: No focal sensory or motor deficits. LABORATORY FINDINGS: Blood work dated 08/01/2017: WBC count 3.3, hemoglobin 13.8 gm/dl, hematocrit 42.7%, platelet count is 353,000, absolute neutrophil count manual is 0.5. Chemistries: Sodium 135, potassium 4.9, chloride 99, bicarb 30.7, BUN 16, creatinine 3.7, EGFR 12, random glucose 91, calcium 9.2, magnesium 2.3, IMAGING STUDIES: Chest x-ray dated 08/01/2017 indicates chronic left base consolidation with volume loss. ASSESSMENT: Ms. Hylton is a 66-year-old female with multiple medical comorbid conditions as outlined above. From a hematologic / oncologic standpoint, she does have a previous history of an early stage non-small cell carcinoma of the left lung which was surgically resected before she moved to [place] (this was done in [place]), her lung carcinoma remains in remission to-date. She also has a history of chronic neutropenia, this was investigated with a bone marrow biopsy in July of 2016, no definite evidence of a primary bone marrow disorder was identified. It appears based on a very strongly positive ALLEN that her neutropenia is related to autoimmune causes. She has therefore been assessed to have autoimmune neutropenia. For management of her autoimmune neutropenia, she has been on outpatient Neupogen injections, which are dosed on average once every week or once every two weeks. RECOMMENDATIONS: 1. Autoimmune neutropenia with ongoing sepsis syndrome: Continue dosing with Neupogen daily. The goal is to maintain an absolute neutrophil count greater than 1.5. I will recommend checking CBCs daily and dosing daily as needed with Neupogen. MD LUKAS Echeverria/KASSANDRA /7:18 PM /10:28 PM MUNIRA
[2017-08-03] VITALS (29 sets, daily range): BP systolic 107–156; BP diastolic 50–70; PULSE 61–81; RESP 16–18; TEMP 97.7–98.9; O2SAT 96–98
[2017-08-03] MEDS: PIPERACIL-TAZO 2.25 GM PREMIX 50 ML IV SCH ×5 (05:07→23:35)
[2017-08-03 07:04] LABS: HEMATOCRIT 40.5 % (35.0-46.0); HEMOGLOBIN 12.8 GM/DL (11.6-15.3); MEAN CELL VOLUME 94.7 FL (80.0-100.0); MEAN CORPUSCULAR HEMOGLOBIN 29.9 PG (27.0-34.0); MEAN CORPUSCULAR HGB CONC 31.5 % (32.0-36.0); MEAN PLATELET VOLUME 7.7 FL (7.0-11.0); PLATELET COUNT 272 TH/MM3 (150-450); RED BLOOD COUNT 4.28 MIL/MM3 (4.00-5.30); RED CELL DISTRIBUTION WIDTH 17.4 % (11.6-17.2); WHITE BLOOD COUNT 2.4 TH/MM3 (4.0-11.0)
[2017-08-03] MEDS: INSULIN NovoLIN REGULAR SUPPLEMENTAL SCALE SQ SCH ×3 (08:00→17:00)
[2017-08-03] MEDS: RESP: ALBUTEROL 2.5 MG/IPRATROPIUM 0.5 MG NEB (SCH) NEB ×4 (08:33→20:11)
[2017-08-03] MEDS: SODIUM CHLORIDE 0.9% FLUSH 10 ML FLUSH IV FLUSH SCH ×2 (09:00→20:57)
[2017-08-03] MEDS: NICOTINE 14 MG/24 HR PATCH T-DERMAL SCH (09:00)
[2017-08-03] MEDS: REMOVE OLD PATCH T-DERMAL SCH (09:00)
[2017-08-03] MEDS: BUDESONIDE-FORMOTEROL 160/4.5 MCG INHALER INH SCH ×2 (09:00→20:57)
[2017-08-03 09:49] LABS: BANDS 18 % (0-6); BASOPHILS 3 % (0-2); CORRECTED NUCLEATED RBC 1 /100 WBC (0-0); LYMPHOCYTES 22 % (9-44); MONOCYTES 41 % (0-8); NUCLEATED RED BLOOD CELL 1 (0-0); POLYS (SEG NEUTROPHILS) 3 % (16-70)
[2017-08-03 09:53] LABS: NEUTROPHIL # MANUAL DIFF 0.5 TH/MM3 (1.8-7.7)
--- NOTE | 2017-08-03 10:12 | HHI.NPPN ---
Subjective General Problems: Anemia, Hypertension Renal Failure: End Stage Renal Disease History of Present Illness 66-year-old white female with history of lung cancer status post wedge resection , she is a smoker and continues to smoke, ESRD, she has upper respiratory tract infection and has been recently discharged from the hospital, she had colonoscopy and biopsy showed colitis Possible ischemic versus pseudomembranous. Additional Remarks Patient seen in Dialysis, mild abd. pain, eating, no vomiting. Objective Data Data Vital Signs Date Time Temp Pulse Resp B/P (MAP) Pulse Ox O2 Delivery O2 Flow Rate FiO2 08/03/17 08:33 Nasal Cannula 2.00 08/03/17 08:03 98.5 73 16 113/52 (72) 97 08/03/17 06:00 66 08/03/17 05:04 98.5 74 18 110/70 (83) 96 08/03/17 05:00 64 08/03/17 04:07 66 08/03/17 03:00 64 08/03/17 02:00 64 08/03/17 01:00 66 08/03/17 00:32 66 08/03/17 00:05 98.3 64 18 154/66 (95) 96 08/02/17 23:00 68 08/02/17 22:00 72 08/02/17 21:09 99 08/02/17 21:00 98 08/02/17 20:42 97.7 66 18 136/62 (86) 100 08/02/17 20:04 69 08/02/17 19:00 66 08/02/17 17:47 74 08/02/17 16:49 99 21 08/02/17 15:57 97.7 60 18 112/60 (77) 98 08/02/17 12:58 120/64 (82) 08/02/17 12:04 97 08/02/17 12:00 65 08/02/17 11:13 98.1 64 20 131/58 (82) 97 -: 08/03/17 0521 08/01/17 1940 Microbiology 08/02/17 Gram Stain - Final, Resulted 08/02/17 Sputum Culture, Resulted Pending Physical Exam General Appearance: No Acute Distress, Comfortable Eyes Eye Exam: Pupils Equal Throat Throat Exam: Oral Mucosa [address] & Moist Pulmonary Resp Exam: Breath Sounds Equal, No Distress, Decreased Bases Cardiology CV Exam: Regular, Normal Sinus Rhythm Gastrointestinal/Abdomen GI Exam: Soft, Non-Tender, Bowel Sounds Present Extremeties Extremities Exam: Trace Edema Neurologic Neuro Exam: Alert, Awake, Oriented Psychiatric Psych Exam: Appropriate Responses Assessment/Plan Problem List: (1) ESRD (end stage renal disease) ICD Codes: N18.6 - End stage renal disease Status: Chronic Plan: Patient is going to do dialysis on Saturday, and Saturdays. Continue supportive care Monitor cultures, negative so far and afebrile. (2) Neutropenia ICD Codes: D70.9 - Neutropenia, unspecified Status: Chronic Plan: Monitor blood count, seen by Hematology. (3) COPD (chronic obstructive pulmonary disease) ICD Codes: J44.9 - Chronic obstructive pulmonary disease, unspecified Status: Chronic Plan: History of lung cancer and continue to smoke cigarette, I have advised to stop smoking Problem Qualifiers (1) Neutropenia: Qualified Codes: D70.9 - Neutropenia, unspecified Reji Lezama MD Aug 03, 2017 10:12
[2017-08-03] MEDS: HEPARIN SODIUM - SQ 10,000 UNITS/ML VIAL SQ SCH ×2 (11:00→23:38)
[2017-08-03] MEDS: buPROPion HCL 150 MG SUSTAINED RELEASE TAB PO SCH (12:28)
[2017-08-03] MEDS: FAMOTIDINE 20 MG TAB PO SCH (12:28)
[2017-08-03] MEDS: GABAPENTIN 100 MG CAP PO SCH ×2 (12:28→20:57)
[2017-08-03] MEDS: MIDODRINE 5 MG TAB PO SCH ×2 (12:28→17:43)
[2017-08-03] MEDS: CALCIUM ACETATE 667 MG CAP PO SCH ×3 (12:28→17:43)
[2017-08-03] MEDS: LACTULOSE SYRUP 20 GM/30 ML CUP PO SCH ×2 (12:28→17:43)
[2017-08-03] MEDS: FLUoxetine HCL 20 MG CAP PO SCH (12:28)
[2017-08-03] MEDS: ASPIRIN 81 MG CHEW TAB CHEW SCH (12:29)
[2017-08-03] MEDS: DOCUSATE SODIUM 50 MG/SENNA 8.6 MG TAB PO SCH ×2 (12:29→20:57)
[2017-08-03] MEDS: FILGRASTIM 300 MCG/ML VIAL SQ SCH (14:00)
[2017-08-03] MEDS ORDERED: VANCOMYCIN 1 GM/200 ML PREMIX IV ONE (16:00)
--- NOTE | 2017-08-03 16:18 | HHI.PR ---
Subjective Remarks WBC has a downward trend from 3.3 down to 2.4 today. Neupogen has been provided. Patient has no new complaints and says she's having bowel movements now. No fevers or chills per patient. Objective Vital Signs Date Time Temp Pulse Resp B/P (MAP) Pulse Ox O2 Delivery O2 Flow Rate FiO2 08/03/17 12:36 97.7 75 18 112/67 (82) 98 08/03/17 08:33 Nasal Cannula 2.00 08/03/17 08:03 98.5 73 16 113/52 (72) 97 08/03/17 06:00 66 08/03/17 05:04 98.5 74 18 110/70 (83) 96 08/03/17 05:00 64 08/03/17 04:07 66 08/03/17 03:00 64 08/03/17 02:00 64 08/03/17 01:00 66 08/03/17 00:32 66 08/03/17 00:05 98.3 64 18 154/66 (95) 96 08/02/17 23:00 68 08/02/17 22:00 72 08/02/17 21:09 99 08/02/17 21:00 98 08/02/17 20:42 97.7 66 18 136/62 (86) 100 08/02/17 20:04 69 08/02/17 19:00 66 08/02/17 17:47 74 08/02/17 16:49 99 21 I/O 08/02/17 08/02/17 08/02/17 08/03/17 08/03/17 08/03/17 07:00 15:00 23:00 07:00 15:00 23:00 Intake Total 540 ml 50 ml 1440 ml 530 ml Output Total 200 ml 1000 ml 151 ml 1000 ml Balance 340 ml 50 ml 440 ml 379 ml -1000 ml Intake Oral 240 ml 1340 ml 480 ml IV Total 300 ml 50 ml 100 ml 50 ml Output Urine Total 200 ml 1000 ml 150 ml Stool Total 1 ml Hemodialysis 1000 ml # Voids 1 # Bowel Movements 2 Result Diagram: 08/03/1721 08/01/171939 Objective Remarks GENERAL: NAD, A&Ox3 HEAD: Normocephalic. NECK: Supple, trachea midline. No lymphadenopathy. EYES: No scleral icterus. No injection or drainage. CARDIOVASCULAR: Regular rate and rhythm without murmurs, gallops, or rubs. RESPIRATORY: Breath sounds equal bilaterally. No accessory muscle use. GASTROINTESTINAL: Abdomen soft, non-tender, nondistended. MUSCULOSKELETAL: No cyanosis, or edema. SKIN: Warm and dry. NEURO: No focal neurological deficitis. A/P Problem List: (1) Sepsis ICD Code: A41.9 - Sepsis, unspecified organism Status: Acute (2) Chronic kidney disease ICD Code: N18.9 - Chronic kidney disease, unspecified Status: Chronic (3) Pneumonia, bacterial ICD Code: J15.9 - Unspecified bacterial pneumonia Status: Acute (4) Shortness of breath ICD Code: R06.02 - Shortness of breath (5) Neutropenia ICD Code: D70.9 - Neutropenia, unspecified Status: Chronic Assessment and Plan 66-year-old female admitted secondary to sepsis and pneumonia with neutropenia Sepsis Resolved Neutropenia Neupogen provided Hematology following Follow CBC Continue neutropenic precautions Community-acquired pneumonia Bacterial pneumonia Continue duo nebs Continue oxygen supplementation as needed No change antibiotics Continue Zosyn Continue vancomycin Decreased mobility Physical decompensation Continue physical therapy Heparin for DVT prophylaxis COPD No exacerbation No change to baseline treatments Colitis Monitor for recurrence Resolved for now Diabetes mellitus type 2 Follow blood sugars Insulin sliding scale Diabetic diet Chronic kidney disease End-stage renal disease Appears stable Follow renal function Nephrology following DVT prophylaxis Heparin Problem Qualifiers (1) Neutropenia: Qualified Codes: D70.9 - Neutropenia, unspecified Shaheed Obando MD Aug 03, 2017 16:18
[2017-08-03] MEDS: ALPRAZolam 1 MG TAB PO PRN (22:43)
[2017-08-04] VITALS (16 sets, daily range): BP systolic 93–151; BP diastolic 49–73; PULSE 64–98; RESP 16–20; TEMP 98.3–98.9; O2SAT 95–99
[2017-08-04] MEDS: PIPERACIL-TAZO 2.25 GM PREMIX 50 ML IV SCH ×4 (04:31→23:30)
[2017-08-04] MEDS: RESP: ALBUTEROL 2.5 MG/IPRATROPIUM 0.5 MG NEB (SCH) NEB ×4 (08:21→21:47)
[2017-08-04] MEDS: FLUoxetine HCL 20 MG CAP PO SCH (08:45)
[2017-08-04] MEDS: ASPIRIN 81 MG CHEW TAB CHEW SCH (08:45)
[2017-08-04] MEDS: MIDODRINE 5 MG TAB PO SCH ×3 (08:45→16:54)
[2017-08-04] MEDS: ONDANSETRON ODT 4 MG TAB PO PRN (08:45)
[2017-08-04] MEDS: BUDESONIDE-FORMOTEROL 160/4.5 MCG INHALER INH SCH ×2 (08:45→20:39)
[2017-08-04] MEDS: buPROPion HCL 150 MG SUSTAINED RELEASE TAB PO SCH (08:45)
[2017-08-04] MEDS: GABAPENTIN 100 MG CAP PO SCH ×2 (08:46→20:40)
[2017-08-04] MEDS: FAMOTIDINE 20 MG TAB PO SCH (08:46)
[2017-08-04] MEDS: CALCIUM ACETATE 667 MG CAP PO SCH ×3 (08:46→16:54)
[2017-08-04] MEDS: LACTULOSE SYRUP 20 GM/30 ML CUP PO SCH ×3 (08:46→16:54)
[2017-08-04] MEDS: SODIUM CHLORIDE 0.9% FLUSH 10 ML FLUSH IV FLUSH SCH ×2 (08:47→20:40)
[2017-08-04] MEDS: NICOTINE 14 MG/24 HR PATCH T-DERMAL SCH (08:47)
[2017-08-04] MEDS: DOCUSATE SODIUM 50 MG/SENNA 8.6 MG TAB PO SCH ×2 (08:51→20:40)
[2017-08-04] MEDS: REMOVE OLD PATCH T-DERMAL SCH (09:00)
--- NOTE | 2017-08-04 09:53 | HHI.PR ---
Subjective Remarks Patient seen and examined this morning. She reports that yesterday she had a rough day to 2 her sugars getting low. She agrees to try and eat more snacks throughout the day. She admits to some shortness of breath. Shortness of breath is worse at night and better in the morning. She denies any nausea or vomiting. Denies any chest pain. Denies any abdominal pain. She denies any major complaints today. Objective Vitals Vital Signs Date Time Temp Pulse Resp B/P (MAP) Pulse Ox O2 Delivery O2 Flow Rate FiO2 08/04/17 08:02 98.9 85 20 98/51 (67) 95 08/04/17 06:00 66 08/04/17 05:00 64 08/04/17 04:26 98.3 72 16 95/59 (71) 99 08/04/17 04:00 65 08/04/17 03:00 64 08/04/17 02:00 64 08/04/17 01:00 66 08/04/17 00:02 69 08/03/17 23:40 98.9 68 16 156/53 (87) 96 08/03/17 23:00 70 08/03/17 22:00 70 08/03/17 21:00 66 08/03/17 20:59 98.3 69 18 107/50 (69) 98 08/03/17 20:13 98 08/03/17 20:02 61 08/03/17 19:00 80 08/03/17 16:00 63 08/03/17 15:00 64 08/03/17 14:00 78 08/03/17 13:00 64 08/03/17 12:36 97.7 75 18 112/67 (82) 98 08/03/17 12:00 67 08/03/17 11:00 72 08/03/17 10:00 78 I/O 08/03/17 08/03/17 08/03/17 08/04/17 08/04/17 08/04/17 07:00 15:00 23:00 07:00 15:00 23:00 Intake Total 530 ml 50 ml 200 ml 340 ml Output Total 151 ml 1000 ml Balance 379 ml -950 ml 200 ml 340 ml Intake Oral 480 ml 240 ml IV Total 50 ml 50 ml 200 ml 100 ml Output Urine Total 150 ml Stool Total 1 ml Hemodialysis 1000 ml Result Diagram: 08/03/17 0521 08/01/170 Imaging Last Impressions Chest X-Ray 08/01/17 1834 Signed Impressions: Service Date/Time: July 18:47 - CONCLUSION: Chronic left base consolidation/scarring with volume loss. No acute cardiopulmonary disease demonstrated. Jose Rainey MD Objective Remarks GENERAL: NAD, A&Ox3 HEAD: Normocephalic. NECK: Supple, trachea midline. No lymphadenopathy. EYES: No scleral icterus. No injection or drainage. CARDIOVASCULAR: Regular rate and rhythm without murmurs, gallops, or rubs. RESPIRATORY: Breath sounds equal bilaterally. No accessory muscle use. GASTROINTESTINAL: Abdomen soft, non-tender, nondistended. MUSCULOSKELETAL: No cyanosis, or edema. SKIN: Warm and dry. NEURO: No focal neurological deficits. Medications and IVs Current Medications Medications (Trade) Dose Ordered Sig/Carlos Route Start Time Stop Time Status Last Admin (Xanax) 1 mg BID PRN PO 08/01/17 22:30 08/03/17 22:43 (Aspirin Chew) 81 mg DAILY CHEW 08/02/17 09:00 08/04/17 08:45 (Symbicort 160-4.5 Mcg Inh) 2 puff Q12HR INH 08/02/17 09:00 08/04/17 08:45 (Wellbutrin Sr) 150 mg DAILY PO 08/02/17 09:00 08/04/17 08:45 (Phoslo) 667 mg TIDPC PO 08/02/17 09:30 08/04/17 08:46 (Colace) 100 mg BID PRN PO 08/01/17 22:30 (Pepcid) 20 mg DAILY PO 08/02/17 09:00 08/04/17 08:46 (PROzac) 20 mg DAILY PO 08/02/17 09:00 08/04/17 08:45 (Neurontin) 100 mg BID PO 08/02/17 09:00 08/04/17 08:46 (Lactulose Liq) 30 ml TID PO 08/02/17 09:00 08/04/17 08:46 (Emla Cream) 1 applic BID PRN TOPICAL 08/01/17 22:30 (Proamatine) 10 mg TID PO 08/02/17 09:00 08/04/17 08:45 (Roxicodone) 10 mg Q6H PRN PO 08/01/17 22:30 08/04/17 08:46 (Zofran Odt) 4 mg Q6H PRN PO 08/01/17 22:45 08/04/17 08:45 (Glucagon Inj) 1 mg STAT PRN IM 08/01/17 22:30 (D50w (Vial) Inj) 50 ml UNSCH PRN IV PUSH 08/01/17 22:30 (Glucagon Inj) 1 mg UNSCH PRN OTHER 08/01/17 22:30 08/03/17 17:39 (NovoLIN R SUPPLEMENTAL SCALE) 1 ACHS SLIDING SCALE SQ 08/02/17 08:00 Future Hold 08/03/17 12:29 (NS Flush) 2 ml UNSCH PRN IV FLUSH 08/01/17 22:30 (NS Flush) 2 ml BID IV FLUSH 08/02/17 09:00 08/04/17 08:47 (Heparin Inj) 5,000 units Q12H SQ 08/01/17 23:00 08/03/17 23:38 (Narcan Inj) 0.4 mg UNSCH PRN IV PUSH 08/01/17 22:30 (Marixa-Colace) 1 tab BID PO 08/02/17 09:00 08/03/17 12:29 (Milk Of Magnesia Liq) 30 ml Q12H PRN PO 08/01/17 22:30 (Senokot) 17.2 mg Q12H PRN PO 08/01/17 22:30 (Dulcolax Supp) 10 mg DAILY PRN RECTAL 08/01/17 22:30 (Lactulose Liq) 30 ml DAILY PRN PO 08/01/17 22:30 Pharmacy Profile Note 0 ml @ 0 mls/hr UNSCH OTHER 08/01/17 22:45 (Duoneb Neb) 1 ampule QID NEB NEB 08/02/17 12:00 08/04/17 08:21 Piperacillin Sod/ Tazobactam Sod 50 ml @ 100 mls/hr Q6H IV 08/02/17 17:00 08/04/17 04:31 Sodium Chloride 1,000 ml @ 0 mls/hr Q0M PRN OTHER 08/02/17 17:09 (Heparin Inj) 8,000 units UNSCH PRN IV FLUSH 08/02/17 17:15 Sodium Chloride 1,000 ml @ 200 mls/hr Q5H PRN IV 08/02/17 17:09 Sodium Chloride 1,000 ml @ 0 mls/hr Q0M PRN OTHER 08/02/17 17:09 (Mannitol Inj) 12.5 gm UNSCH PRN IV 08/02/17 17:15 Albumin Human 100 ml @ 60 mls/hr UNSCH PRN IV 08/02/17 17:15 (NS Flush) 5 ml UNSCH PRN IV FLUSH 08/02/17 17:15 (Zofran Inj) 4 mg UNSCH PRN IV PUSH 08/02/17 17:15 (Tylenol) 650 mg UNSCH PRN PO 08/02/17 17:15 08/03/17 08:48 (Benadryl) 25 mg UNSCH PRN PO 08/02/17 17:15 (Nitrostat Sl) 0.4 mg UNSCH PRN SL 08/02/17 17:15 (Catapres) 0.1 mg UNSCH PRN PO 08/02/17 17:15 (Gelfoam 12 Mm/7 Mm Top) 1 foam UNSCH PRN TOP 08/02/17 17:15 (Habitrol 14 Mg Patch.24 Hr) 1 patch DAILY T-DERMAL 08/02/17 20:00 08/04/17 08:47 Miscellaneous Information 1 DAILY T-DERMAL 08/03/17 09:00 (Neupogen Inj) 300 mcg DAILY@14 SQ 08/03/17 14:00 08/03/17 14:00 A/P Problem List: (1) Normocytic anemia ICD Code: D64.9 - Anemia, unspecified Status: Chronic (2) Hypotension ICD Code: I95.9 - Hypotension Status: Acute (3) COPD (chronic obstructive pulmonary disease) ICD Code: J44.9 - Chronic obstructive pulmonary disease, unspecified Status: Chronic (4) Colitis ICD Code: K52.9 - Noninfective gastroenteritis and colitis, unspecified (5) ESRD (end stage renal disease) ICD Code: N18.6 - End stage renal disease Status: Chronic (6) DM (diabetes mellitus) ICD Code: E11.9 - Type 2 diabetes mellitus without complications Status: Acute (7) Chronic kidney disease ICD Code: N18.9 - Chronic kidney disease, unspecified Status: Chronic (8) Sepsis ICD Code: A41.9 - Sepsis, unspecified organism Status: Acute (9) Pneumonia, bacterial ICD Code: J15.9 - Unspecified bacterial pneumonia Status: Acute Assessment and Plan 66-year-old female admitted secondary to sepsis and pneumonia with neutropenia Sepsis Resolved Neutropenia Neupogen provided Hematology following Follow CBC Continue neutropenic precautions Community-acquired pneumonia Bacterial pneumonia Continue duo nebs Continue oxygen supplementation as needed No change antibiotics Continue Zosyn Continue vancomycin Decreased mobility Physical decompensation Continue physical therapy Heparin for DVT prophylaxis COPD No exacerbation No change to baseline treatments Colitis Monitor for recurrence Resolved for now Diabetes mellitus type 2 Follow blood sugars Insulin sliding scale Patient had some episodes of hypoglycemia yesterday, decreased the insulin sliding scale to medium dose. Diabetic diet Chronic kidney disease End-stage renal disease Appears stable Follow renal function Nephrology following DVT prophylaxis Heparin Discharge Planning Currently not medically stable Abhilash Kamara MD, R3 Aug 04, 2017 09:53
--- NOTE | 2017-08-04 11:19 | HHI.NPPN ---
Subjective General Problems: Anemia, Hypertension Renal Failure: End Stage Renal Disease History of Present Illness 66-year-old white female with history of lung cancer status post wedge resection , she is a smoker and continues to smoke, ESRD, she has upper respiratory tract infection and has been recently discharged from the hospital, she had colonoscopy and biopsy showed colitis Possible ischemic versus pseudomembranous. Additional Remarks Patient is alert, feeling better today, no SOB. Objective Data Data Vital Signs Date Time Temp Pulse Resp B/P (MAP) Pulse Ox O2 Delivery O2 Flow Rate FiO2 08/04/17 08:02 98.9 85 20 98/51 (67) 95 08/04/17 06:00 66 08/04/17 05:00 64 08/04/17 04:26 98.3 72 16 95/59 (71) 99 08/04/17 04:00 65 08/04/17 03:00 64 08/04/17 02:00 64 08/04/17 01:00 66 08/04/17 00:02 69 08/03/17 23:40 98.9 68 16 156/53 (87) 96 08/03/17 23:00 70 08/03/17 22:00 70 08/03/17 21:00 66 08/03/17 20:59 98.3 69 18 107/50 (69) 98 08/03/17 20:13 98 08/03/17 20:02 61 08/03/17 19:00 80 08/03/17 16:00 63 08/03/17 15:00 64 08/03/17 14:00 78 08/03/17 13:00 64 08/03/17 12:36 97.7 75 18 112/67 (82) 98 08/03/17 12:00 66 -: 08/03/17 0521 08/01/17 1940 Physical Exam General Appearance: No Acute Distress, Comfortable Eyes Eye Exam: Pupils Equal Throat Throat Exam: Oral Mucosa [place] & Moist Pulmonary Resp Exam: Breath Sounds Equal, No Distress, Decreased Bases Cardiology CV Exam: Regular, Normal Sinus Rhythm Gastrointestinal/Abdomen GI Exam: Soft, Non-Tender, Bowel Sounds Present Extremeties Extremities Exam: Trace Edema Neurologic Neuro Exam: Alert, Awake, Oriented Psychiatric Psych Exam: Appropriate Responses Assessment/Plan Problem List: (1) ESRD (end stage renal disease) ICD Codes: N18.6 - End stage renal disease Status: Chronic Plan: Patient is going to do dialysis on Saturday, and Saturdays. Continue supportive care Monitor cultures, negative so far and afebrile. HD was done yesterday and she has infiltration, so HD was stopped earlier. No urgent need for HD now, Dr. Jurado will follow from AM. (2) Neutropenia ICD Codes: D70.9 - Neutropenia, unspecified Status: Chronic Plan: Monitor blood count, seen by Hematology. (3) COPD (chronic obstructive pulmonary disease) ICD Codes: J44.9 - Chronic obstructive pulmonary disease, unspecified Status: Chronic Plan: History of lung cancer and continue to smoke cigarette, I have advised to stop smoking Problem Qualifiers (1) Neutropenia: Qualified Codes: D70.9 - Neutropenia, unspecified Reji Lezama MD Aug 04, 2017 11:19
[2017-08-04] MEDS: INSULIN NovoLIN REGULAR SUPPLEMENTAL SCALE SQ SCH ×3 (11:26→20:40)
[2017-08-04] MEDS: HEPARIN SODIUM - SQ 10,000 UNITS/ML VIAL SQ SCH ×2 (11:26→23:30)
[2017-08-04 12:15] LABS: HEMATOCRIT 36.3 % (35.0-46.0); HEMOGLOBIN 11.8 GM/DL (11.6-15.3); MEAN CELL VOLUME 93.9 FL (80.0-100.0); MEAN CORPUSCULAR HEMOGLOBIN 30.4 PG (27.0-34.0); MEAN CORPUSCULAR HGB CONC 32.4 % (32.0-36.0); MEAN PLATELET VOLUME 7.9 FL (7.0-11.0); PLATELET COUNT 240 TH/MM3 (150-450); RED BLOOD COUNT 3.87 MIL/MM3 (4.00-5.30); RED CELL DISTRIBUTION WIDTH 17.2 % (11.6-17.2); WHITE BLOOD COUNT 3.6 TH/MM3 (4.0-11.0)
[2017-08-04 12:33] LABS: RHEUMATOID FACTOR SCREEN NEGATIVE (NEGATIVE)
[2017-08-04 12:55] LABS: BANDS 22 % (0-6); LYMPHOCYTES 13 % (9-44); MONOCYTES 38 % (0-8); MYELOCYTES 1 % (0-0); NEUTROPHIL # MANUAL DIFF 1.3 TH/MM3 (1.8-7.7); POLYS (SEG NEUTROPHILS) 14 % (16-70); TOXIC GRANULATION 1+ (NORMAL); TOXIC VACUOLATION PRESENT (NONE SEEN)
[2017-08-04] MEDS: FILGRASTIM 300 MCG/ML VIAL SQ SCH (14:00)
[2017-08-04] MEDS: ALPRAZolam 1 MG TAB PO PRN (23:25)
[2017-08-05] VITALS (18 sets, daily range): BP systolic 91–150; BP diastolic 54–78; PULSE 66–97; RESP 16–20; TEMP 97.7–98.5; O2SAT 91–98
[2017-08-05] MEDS: MIDODRINE 5 MG TAB PO SCH ×3 (05:06→18:00)
[2017-08-05] MEDS: PIPERACIL-TAZO 2.25 GM PREMIX 50 ML IV SCH ×4 (05:08→22:39)
--- NOTE | 2017-08-05 07:19 | HHI.FPPN ---
Objective Vitals Vital Signs Date Time Temp Pulse Resp B/P (MAP) Pulse Ox O2 Delivery O2 Flow Rate FiO2 08/05/17 04:00 98.0 80 20 91/54 (66) 96 08/05/17 04:00 73 08/05/17 00:00 73 08/05/17 00:00 98.5 73 20 113/54 (73) 96 08/04/17 21:48 21 08/04/17 20:00 98.4 73 20 126/57 (80) 98 08/04/17 20:00 68 08/04/17 16:57 98.8 72 20 151/55 (87) 08/04/17 12:01 96 08/04/17 11:31 98.4 72 18 109/73 (85) 96 08/04/17 08:02 98.9 85 20 98/51 (67) 95 I/O 08/04/17 08/04/17 08/04/17 08/05/17 08/05/17 08/05/17 07:00 15:00 23:00 07:00 15:00 23:00 Intake Total 340 ml 240 ml Balance 340 ml 240 ml Intake Oral 240 ml 240 ml IV Total 100 ml Result Diagram: 08/04/17 1153 08/01/17 194 Alli Watkins MD Aug 05, 2017 07:19
[2017-08-05] MEDS: RESP: ALBUTEROL 2.5 MG/IPRATROPIUM 0.5 MG NEB (SCH) NEB ×4 (08:00→18:58)
[2017-08-05] MEDS: INSULIN NovoLIN REGULAR SUPPLEMENTAL SCALE SQ SCH ×4 (08:00→20:33)
[2017-08-05] MEDS: REMOVE OLD PATCH T-DERMAL SCH (09:00)
[2017-08-05] MEDS: DOCUSATE SODIUM 50 MG/SENNA 8.6 MG TAB PO SCH ×2 (09:00→20:33)
[2017-08-05] MEDS: LACTULOSE SYRUP 20 GM/30 ML CUP PO SCH ×3 (09:00→17:30)
[2017-08-05] MEDS: SODIUM CHLORIDE 0.9% FLUSH 10 ML FLUSH IV FLUSH SCH ×2 (09:00→20:33)
[2017-08-05] MEDS: CALCIUM ACETATE 667 MG CAP PO SCH ×3 (09:19→19:44)
[2017-08-05] MEDS: GABAPENTIN 100 MG CAP PO SCH ×2 (09:19→20:32)
[2017-08-05] MEDS: buPROPion HCL 150 MG SUSTAINED RELEASE TAB PO SCH (09:20)
[2017-08-05] MEDS: ASPIRIN 81 MG CHEW TAB CHEW SCH (09:20)
[2017-08-05] MEDS: NICOTINE 14 MG/24 HR PATCH T-DERMAL SCH (09:20)
[2017-08-05] MEDS: FAMOTIDINE 20 MG TAB PO SCH (09:20)
[2017-08-05] MEDS: BUDESONIDE-FORMOTEROL 160/4.5 MCG INHALER INH SCH ×2 (09:21→20:32)
[2017-08-05] MEDS: FLUoxetine HCL 20 MG CAP PO SCH (09:22)
[2017-08-05] MEDS ORDERED: XANA1TAB2 PO (09:28)
[2017-08-05] MEDS ORDERED: OXYC-395 PO (09:28)
--- NOTE | 2017-08-05 09:30 | HHI.DCPOC ---
Discharge Care Plan Diagnosis: (1) Hypotension (2) Normocytic anemia (3) Sepsis (4) Constipation due to opioid therapy (5) Impaired mobility and activities of daily living (6) Chronic kidney disease (7) DM (diabetes mellitus) (8) Debility (9) ESRD (end stage renal disease) (10) Colitis Goals to Promote Your Health * To prevent worsening of your condition and complications * To maintain your health at the optimal level Directions to Meet Your Goals Take your medications as prescribed Follow your dietary instruction Follow activity as directed Keep your appointments as scheduled Take your immunizations and boosters as scheduled If your symptoms worsen call your PCP, if no PCP go to Urgent Care Center or Emergency Room Smoking is Dangerous to Your Health. Avoid second hand smoke Call the 24-hour hour crisis hotline for domestic abuse at Alli Watkins MD Aug 05, 2017 09:30
[2017-08-05] MEDS ORDERED: AUGM875T3 PO (09:34)
[2017-08-05] MEDS ORDERED: DOXY100C PO (09:34)
--- NOTE | 2017-08-05 09:35 | HHI.DS ---
Discharge Summary Admission Date Aug 01, 2017 at 22:14 Discharge Date: Aug 05, 2017 Admitting Diagnosis Neutropenia, possible Bacteremia (1) Normocytic anemia ICD Codes: D64.9 - Anemia, unspecified Status: Chronic (2) Hypotension ICD Codes: I95.9 - Hypotension Status: Acute (3) COPD (chronic obstructive pulmonary disease) ICD Codes: J44.9 - Chronic obstructive pulmonary disease, unspecified Status: Chronic (4) Colitis ICD Codes: K52.9 - Noninfective gastroenteritis and colitis, unspecified (5) ESRD (end stage renal disease) ICD Codes: N18.6 - End stage renal disease Status: Chronic (6) DM (diabetes mellitus) ICD Codes: E11.9 - Type 2 diabetes mellitus without complications Status: Acute (7) Chronic kidney disease ICD Codes: N18.9 - Chronic kidney disease, unspecified Status: Chronic (8) Sepsis ICD Codes: A41.9 - Sepsis, unspecified organism Status: Acute (9) Pneumonia, bacterial ICD Codes: J15.9 - Unspecified bacterial pneumonia Status: Acute Brief History 66 Y CF, LONG HISTORY OF COLITIS, RF NOW ON HD. PT HAS BEEN HOME BOUND, COMES TO MY OFFICE HOWEVER WITH HER DAUGHTER. PT CONTINUES TO SMOKE AND HAS RECURRENT BRONCHITIS. SHE HAS GENERALLY DECLINED AND WAS VERY WEAK. DAUGHTER HAS BEEN LOOKING FOR PLACEMENT FOR HER ALSO AND YESTERDAY WE WERE ORGANIZING A 3008 AND POSSIBLE SNF PLACEMENT. PT BECAME SOB AND WEAK AND DAUGHTER BROUGHT HER TO THE ER. PT FOUND WITH LOW ANC AND STARTED W RIGORS IN THE ER. I WAS THUS CALLED FOR ADMISSION. PT RECEIVED IV ABX AND SEPSIS WORKUP BEGUN IN ER. PT IS OBVIOUSLY WEAKER AND HAS A HARSH CONGESTED COUGH. CBC/BMP: 08/04/17 1153 08/01/17 1940 Significant Findings Laboratory Tests Test 08/03/17 05:19 08/03/17 05:21 08/04/17 11:53 08/05/17 08:45 White Blood Count 2.4 TH/MM3 (4.0-11.0) 3.6 TH/MM3 (4.0-11.0) Mean Corpuscular Hemoglobin Concent 31.5 % (32.0-36.0) Red Cell Distribution Width 17.4 % (11.6-17.2) Neutrophils % (Manual) 3 % (16-70) 14 % (16-70) Band Neutrophils % 18 % (0-6) 22 % (0-6) Monocytes % 41 % (0-8) 38 % (0-8) Eosinophils % 13 % (0-4) 12 % (0-4) Basophils % 3 % (0-2) Neutrophils # (Manual) 0.5 TH/MM3 (1.8-7.7) 1.3 TH/MM3 (1.8-7.7) Nucleated Red Blood Cells 1 /100 WBC (0-0) Red Blood Count 3.87 MIL/MM3 (4.00-5.30) Myelocytes 1 % (0-0) Toxic Granulation 1+ (NORMAL) Toxic Vacuolation PRESENT (NONE SEEN) Erythrocyte Sedimentation Rate 68 mm/hr (0-30) C-Reactive Protein 5.76 MG/DL (0.00-0.30) PE at Discharge GENERAL: SKIN: Warm and dry. HEAD: Atraumatic. Normocephalic. EYES: Pupils equal and round. No scleral icterus. No injection or drainage. ENT: No nasal bleeding or discharge. Mucous membranes pink and moist. NECK: Trachea midline. No JVD. CARDIOVASCULAR: Regular rate and rhythm. RESPIRATORY: No accessory muscle use. Clear to auscultation. Breath sounds equal bilaterally. GASTROINTESTINAL: Abdomen soft, non-tender, nondistended. Hepatic and splenic margins not palpable. MUSCULOSKELETAL: Extremities without clubbing, cyanosis, or edema. No obvious deformities. NEUROLOGICAL: Awake and alert. No obvious cranial nerve deficits. Motor grossly within normal limits. 3 out of 5 muscle strength in the arms and legs. Normal speech. PSYCHIATRIC: Appropriate mood and affect; insight and judgment normal. Hospital Course 66-year-old female admitted secondary to sepsis and pneumonia with neutropenia Sepsis Resolved Neutropenia Neupogen provided Hematology following Follow CBC Continue neutropenic precautions Community-acquired pneumonia Bacterial pneumonia Continue duo nebs Continue oxygen supplementation as needed No change antibiotics Continue Zosyn Continue vancomycin Decreased mobility Physical decompensation Continue physical therapy Heparin for DVT prophylaxis COPD No exacerbation No change to baseline treatments Colitis Monitor for recurrence Resolved for now Diabetes mellitus type 2 Follow blood sugars Insulin sliding scale Patient had some episodes of hypoglycemia yesterday, decreased the insulin sliding scale to medium dose. Diabetic diet Chronic kidney disease End-stage renal disease Appears stable Follow renal function Nephrology following DVT prophylaxis Heparin Discharge Pt Condition on Discharge: Stable Discharge Disposition: Discharge to SNF Discharge Instructions DIET: Follow Instructions for: As Tolerated, No Restrictions Activities you can perform: Regular-No Restrictions New Medications: Amoxicillin-Clavulanate (Augmentin) 875-125 Mg Tab 1 TAB PO BID for Infection for 10 Days, #20 TAB 0 Refills Doxycycline Hyclate (Doxycycline Hyclate) 100 Mg Cap 100 MG PO BID for Infection, #20 CAP 0 Refills Changed Medications: Oxycodone (Oxycodone) 10 Mg Tab 10 MG PO Q6HR PRN for PAIN SCALE 6 TO 10, #90 TAB 0 Refills (Medication details modified) Continued Medications: Albuterol 18 GM Inh (Ventolin Hfa 18 GM Inh) 90 Mcg/Act Aer 2 PUFF INH Q4-6H PRN for SHORTNESS OF BREATH, #1 INHALER 0 Refills Albuterol 8.5 GM Inh (Proair Hfa 8.5 GM Inh) 90 Mcg/Act Aer 2 PUFF INH Q4-6H PRN for SHORTNESS OF BREATH, #1 INHALER 0 Refills 108 mcg/actuation Alprazolam (Xanax) 1 Mg Tab 1 MG PO BID PRN for ANXIETY, #60 TAB 5 Refills (This prescription has been renewed) Aspirin (Aspirin) 81 Mg Chew 81 MG CHEW DAILY, TAB 0 Refills B-Complex W/ C & Folic Acid (Dialyvite 800) 1 Tab Budesonide-Formoterol Inh (Symbicort Inh) 160-4.5 Mcg/Act Aero 2 PUFF INH Q12HR, #1 INHALER 0 Refills Bupropion HCl ER 24 HR (Bupropion HCl ER 24 HR) 150 Mg Tab 150 MG PO DAILY for Control Depression, TAB 0 Refills Calcium Acetate (Phosphate Bin (Calcium Acetate) 667 Mg Cap 667 MG PO TIDPC for dialysis, #90 CAP 3 Refills Calcium Carbonate (Antacid) (Tums) 500 Mg Chew 500 MG CHEW PRN for HEARTBURN, TAB 0 Refills Cholecalciferol (Vitamin D3) 2,000 Unit Cap 2000 UNITS PO DAILY for Nutritional Supplement, #30 BOTTLE 0 Refills Dextromethorphan-Guaifenesin (Mucinex DM) 30-600 Mg Tab 2 TAB PO BID PRN for CHEST CONGESTION AND/OR COUGH, TAB 0 Refills Docusate Sodium (Docusate Sodium) 100 Mg Cap 100 MG PO BID PRN for Prevent Constipation, #60 CAP 0 Refills Famotidine (Famotidine) 20 Mg Tab 20 MG PO DAILY, #30 TAB 0 Refills Fluoxetine (Fluoxetine) 20 Mg Tab 20 MG PO DAILY, #30 TAB 0 Refills Gabapentin (Gabapentin) 100 Mg Cap 100 MG PO BID, #60 CAP 0 Refills Lidocaine-Prilocaine Topical (Lidopril Topical) 2.5-2.5 % Cream 1 APPLIC TOPICAL BID PRN for Numbs skin, #1 TUBE 0 Refills Midodrine (Midodrine) 10 Mg Tab 10 MG PO TID for Control Low Blood Pressure, #90 TAB 0 Refills Nitroglycerin SL (Nitroglycerin SL) 0.4 Mg Subl 0.4 MG SL DIRECTED PRN for CHEST PAIN, #100 TAB.SL 0 Refills ONE TABLET UNDER THE TONGUE NEEDED FOR CHEST PAIN, MAY REPEAT EVERY FIVE MINUTES FOR A TOTAL OF 3 DOSES OR CALL 911 IF NO RELIEF Ondansetron (Zofran) 4 Mg Tab 4 MG PO Q6HR PRN for NAUSEA OR VOMITING, TAB 0 Refills Oxygen tank (Oxygen tank) 1 Ea Tank 2 LITER EDUARDO.CANULA HS for HYPOXEMIA PREVENTION, #2 CYLINDER Oxygen Concentrator Portable Gaseous 2 L/min via Nasal Cannula Continuous For 99 months Tiotropium Inh (Spiriva Handihaler) 18 Mcg Cap 18 MCG INH DAILY for COPD for 30 Days, CAP 0 Refills 1 capsule = 18 mcg Discontinued Medications: Lactulose Liq (Lactulose Liq) 10 Gm/15 Ml Soln 30 ML PO TID, ML 0 Refills Alli Watkins MD Aug 05, 2017 09:35
[2017-08-05 09:53] LABS: BICARBONATE 22.1 MEQ/L (21.0-32.0); CALCIUM 9.7 MG/DL (8.5-10.1); CREATININE 7.55 MG/DL (0.50-1.00)
[2017-08-05 09:56] LABS: RANDOM VANCOMYCIN 27.3 COMMENT
[2017-08-05] MEDS: HEPARIN SODIUM - SQ 10,000 UNITS/ML VIAL SQ SCH ×2 (11:42→22:40)
[2017-08-05] MEDS: FILGRASTIM 300 MCG/ML VIAL SQ SCH (15:13)
--- NOTE | 2017-08-05 15:43 | HHI.NPPN ---
Subjective General Problems: Anemia, Hypertension Renal Failure: End Stage Renal Disease History of Present Illness 66-year-old white female with history of lung cancer status post wedge resection , she is a smoker and continues to smoke, ESRD, she has upper respiratory tract infection and has been recently discharged from the hospital, she had colonoscopy and biopsy showed colitis Possible ischemic versus pseudomembranous. Additional Remarks Patient is alert, feeling better today, no SOB. Objective Data Data Vital Signs Date Time Temp Pulse Resp B/P (MAP) Pulse Ox O2 Delivery O2 Flow Rate FiO2 08/05/17 15:19 98 21 08/05/17 11:50 98.4 76 16 95 08/05/17 08:53 97.7 96 16 150/78 (102) 91 08/05/17 08:01 96 21 08/05/17 06:00 66 08/05/17 05:00 88 08/05/17 04:00 98.0 80 20 91/54 (66) 96 08/05/17 04:00 73 08/05/17 03:00 76 08/05/17 02:00 80 08/05/17 01:00 72 08/05/17 00:00 73 08/05/17 00:00 98.5 73 20 113/54 (73) 96 08/04/17 23:00 74 08/04/17 22:00 98 08/04/17 21:48 21 08/04/17 21:00 70 08/04/17 20:00 98.4 73 20 126/57 (80) 98 08/04/17 20:00 68 08/04/17 16:57 98.8 72 20 151/55 (87) -: 08/04/17 1153 08/05/17 0845 Physical Exam General Appearance: No Acute Distress, Comfortable Eyes Eye Exam: Pupils Equal Throat Throat Exam: Oral Mucosa [place] & Moist Pulmonary Resp Exam: Breath Sounds Equal, No Distress, Decreased Bases Cardiology CV Exam: Regular, Normal Sinus Rhythm Gastrointestinal/Abdomen GI Exam: Soft, Non-Tender, Bowel Sounds Present Extremeties Extremities Exam: Trace Edema Neurologic Neuro Exam: Alert, Awake, Oriented Psychiatric Psych Exam: Appropriate Responses Assessment/Plan Problem List: (1) ESRD (end stage renal disease) ICD Codes: N18.6 - End stage renal disease Status: Chronic Plan: Patient is going to do dialysis on Saturday, and Saturdays. Continue supportive care Monitor cultures, negative so far and afebrile. HD was done Saturday and she has infiltration, so HD was stopped earlier. will try tomorrow as out pt (2) Neutropenia ICD Codes: D70.9 - Neutropenia, unspecified Status: Chronic Plan: Monitor blood count, seen by Hematology. (3) COPD (chronic obstructive pulmonary disease) ICD Codes: J44.9 - Chronic obstructive pulmonary disease, unspecified Status: Chronic Plan: History of lung cancer and continue to smoke cigarette, I have advised to stop smoking Problem Qualifiers (1) Neutropenia: Qualified Codes: D70.9 - Neutropenia, unspecified Oscar Jurado MD Aug 05, 2017 15:43
[2017-08-05] MEDS: ALPRAZolam 1 MG TAB PO PRN (23:25)
[2017-08-06] VITALS (18 sets, daily range): BP systolic 105–137; BP diastolic 52–66; PULSE 70–88; RESP 15–18; TEMP 97.5–98.4; O2SAT 94–97
[2017-08-06 02:01] LABS: BILIRUBIN, URINE NEG (NEG); BLOOD, URINE LARGE (NEG); GLUCOSE,URINE TRACE mg/dL (NEG); KETONE, URINE NEG (NEG); NITRITE,URINE NEG (NEG); PH, URINE 8.5 (5.0-8.5); SQUAMOUS EPITHELIAL CELL URINE 13 /hpf (0-5); URINE COLOR RED (YELLW/STRAW); URINE LEUKOCYTE ESTERASE MOD (NEG)
[2017-08-06] MEDS: PIPERACIL-TAZO 2.25 GM PREMIX 50 ML IV SCH ×5 (05:00→22:19)
[2017-08-06] MEDS: RESP: ALBUTEROL 2.5 MG/IPRATROPIUM 0.5 MG NEB (SCH) NEB (08:00)
[2017-08-06] MEDS: INSULIN NovoLIN REGULAR SUPPLEMENTAL SCALE SQ SCH ×4 (08:00→20:08)
[2017-08-06] MEDS: BUDESONIDE-FORMOTEROL 160/4.5 MCG INHALER INH SCH ×2 (09:00→20:08)
[2017-08-06] MEDS: GABAPENTIN 100 MG CAP PO SCH ×2 (09:00→20:10)
[2017-08-06] MEDS: LACTULOSE SYRUP 20 GM/30 ML CUP PO SCH ×3 (09:00→17:51)
[2017-08-06] MEDS: MIDODRINE 5 MG TAB PO SCH ×3 (09:00→18:00)
[2017-08-06] MEDS: DOCUSATE SODIUM 50 MG/SENNA 8.6 MG TAB PO SCH ×2 (09:00→20:09)
[2017-08-06] MEDS: CALCIUM ACETATE 667 MG CAP PO SCH ×3 (09:30→18:03)
--- NOTE | 2017-08-06 10:31 | HHI.FPPN ---
Subjective Remarks seen in HD harsh coughing d/w RN Objective Vitals Vital Signs Date Time Temp Pulse Resp B/P (MAP) Pulse Ox O2 Delivery O2 Flow Rate FiO2 08/06/17 06:00 70 08/06/17 05:49 97.7 87 15 122/59 (80) 94 08/06/17 05:00 70 08/06/17 03:57 72 08/06/17 03:49 Room Air 08/06/17 03:00 74 08/06/17 02:00 78 08/06/17 01:00 88 08/06/17 00:11 81 08/06/17 00:00 Nasal Cannula 2.00 08/06/17 00:00 98.0 82 18 127/58 (81) 96 08/05/17 23:00 86 08/05/17 22:45 100 Nasal Cannula 2.00 08/05/17 22:00 86 08/05/17 21:00 82 08/05/17 20:35 Room Air 08/05/17 20:35 98.4 97 20 139/69 (92) 95 08/05/17 20:04 85 08/05/17 19:00 84 08/05/17 16:00 98.4 75 16 129/66 (87) 94 08/05/17 15:19 98 21 08/05/17 11:50 98.4 76 16 95 I/O 08/05/17 08/05/17 08/05/17 08/06/17 08/06/17 08/06/17 07:00 15:00 23:00 07:00 15:00 23:00 Intake Total 340 ml 240 ml 200 ml Output Total 150 ml Balance 340 ml 240 ml 50 ml Intake Oral 240 ml 240 ml 200 ml IV Total 100 ml Output Urine Total 150 ml # Voids 3 # Bowel Movements 1 Result Diagram: 08/04/17 1153 08/05/17 0845 Objective Remarks GENERAL: SKIN: Warm and dry. HEAD: Atraumatic. Normocephalic. EYES: Pupils equal and round. No scleral icterus. No injection or drainage. ENT: No nasal bleeding or discharge. Mucous membranes pink and moist. NECK: Trachea midline. No JVD. CARDIOVASCULAR: Regular rate and rhythm. RESPIRATORY: No accessory muscle use.b r/r GASTROINTESTINAL: Abdomen soft, non-tender, nondistended. Hepatic and splenic margins not palpable. MUSCULOSKELETAL: Extremities without clubbing, cyanosis, or edema. No obvious deformities. NEUROLOGICAL: Awake and alert. No obvious cranial nerve deficits. Motor grossly within normal limits. 1 out of 5 muscle strength in the arms and legs. Normal speech. PSYCHIATRIC: Appropriate mood and affect; insight and judgment normal. Medications and IVs Current Medications Medications (Trade) Dose Ordered Sig/Carlos Route Start Time Stop Time Status Last Admin (Xanax) 1 mg BID PRN PO 08/01/17 22:30 08/05/17 23:25 (Aspirin Chew) 81 mg DAILY CHEW 08/02/17 09:00 08/05/17 09:20 (Symbicort 160-4.5 Mcg Inh) 2 puff Q12HR INH 08/02/17 09:00 08/05/17 20:32 (Wellbutrin Sr) 150 mg DAILY PO 08/02/17 09:00 08/05/17 09:20 (Phoslo) 667 mg TIDPC PO 08/02/17 09:30 08/05/17 19:44 (Colace) 100 mg BID PRN PO 08/01/17 22:30 (Pepcid) 20 mg DAILY PO 08/02/17 09:00 08/05/17 09:20 (PROzac) 20 mg DAILY PO 08/02/17 09:00 08/05/17 09:22 (Neurontin) 100 mg BID PO 08/02/17 09:00 08/05/17 20:32 (Lactulose Liq) 30 ml TID PO 08/02/17 09:00 08/04/17 16:54 (Emla Cream) 1 applic BID PRN TOPICAL 08/01/17 22:30 (Proamatine) 10 mg TID PO 08/02/17 09:00 08/05/17 05:06 (Roxicodone) 10 mg Q6H PRN PO 08/01/17 22:30 08/05/17 11:42 (Zofran Odt) 4 mg Q6H PRN PO 08/01/17 22:45 08/04/17 08:45 (Glucagon Inj) 1 mg STAT PRN IM 08/01/17 22:30 (D50w (Vial) Inj) 50 ml UNSCH PRN IV PUSH 08/01/17 22:30 (Glucagon Inj) 1 mg UNSCH PRN OTHER 08/01/17 22:30 08/03/17 17:39 (NS Flush) 2 ml UNSCH PRN IV FLUSH 08/01/17 22:30 (NS Flush) 2 ml BID IV FLUSH 08/02/17 09:00 08/05/17 20:33 (Heparin Inj) 5,000 units Q12H SQ 08/01/17 23:00 08/05/17 11:42 (Narcan Inj) 0.4 mg UNSCH PRN IV PUSH 08/01/17 22:30 (Marixa-Colace) 1 tab BID PO 08/02/17 09:00 08/03/17 12:29 (Milk Of Magnesia Liq) 30 ml Q12H PRN PO 08/01/17 22:30 (Senokot) 17.2 mg Q12H PRN PO 08/01/17 22:30 (Dulcolax Supp) 10 mg DAILY PRN RECTAL 08/01/17 22:30 (Lactulose Liq) 30 ml DAILY PRN PO 08/01/17 22:30 Pharmacy Profile Note 0 ml @ 0 mls/hr UNSCH OTHER 08/01/17 22:45 (Duoneb Neb) 1 ampule QID NEB NEB 08/02/17 12:00 08/05/17 18:58 Piperacillin Sod/ Tazobactam Sod 50 ml @ 100 mls/hr Q6H IV 08/02/17 17:00 08/05/17 22:39 Sodium Chloride 1,000 ml @ 0 mls/hr Q0M PRN OTHER 08/02/17 17:09 (Heparin Inj) 8,000 units UNSCH PRN IV FLUSH 08/02/17 17:15 Sodium Chloride 1,000 ml @ 200 mls/hr Q5H PRN IV 08/02/17 17:09 Sodium Chloride 1,000 ml @ 0 mls/hr Q0M PRN OTHER 08/02/17 17:09 (Mannitol Inj) 12.5 gm UNSCH PRN IV 08/02/17 17:15 Albumin Human 100 ml @ 60 mls/hr UNSCH PRN IV 08/02/17 17:15 (NS Flush) 5 ml UNSCH PRN IV FLUSH 08/02/17 17:15 (Zofran Inj) 4 mg UNSCH PRN IV PUSH 08/02/17 17:15 (Tylenol) 650 mg UNSCH PRN PO 08/02/17 17:15 08/03/17 08:48 (Benadryl) 25 mg UNSCH PRN PO 08/02/17 17:15 (Nitrostat Sl) 0.4 mg UNSCH PRN SL 08/02/17 17:15 (Catapres) 0.1 mg UNSCH PRN PO 08/02/17 17:15 (Gelfoam 12 Mm/7 Mm Top) 1 foam UNSCH PRN TOP 08/02/17 17:15 (Habitrol 14 Mg Patch.24 Hr) 1 patch DAILY T-DERMAL 08/02/17 20:00 08/05/17 09:20 Miscellaneous Information 1 DAILY T-DERMAL 08/03/17 09:00 08/05/17 09:00 (Neupogen Inj) 300 mcg DAILY@14 SQ 08/03/17 14:00 08/05/17 15:13 (NovoLIN R SUPPLEMENTAL SCALE) 1 ACHS SLIDING SCALE SQ 08/04/17 12:00 A/P Assessment and Plan 66-year-old female admitted secondary to sepsis and pneumonia with neutropenia Sepsis Resolved Neutropenia Neupogen provided Hematology following Follow CBC Continue neutropenic precautions Community-acquired pneumonia Bacterial pneumonia Continue duo nebs Continue oxygen supplementation as needed No change antibiotics Continue Zosyn Continue vancomycin Decreased mobility Physical decompensation Continue physical therapy Heparin for DVT prophylaxis COPD No exacerbation No change to baseline treatments Colitis Monitor for recurrence Resolved for now Diabetes mellitus type 2 Follow blood sugars Insulin sliding scale Patient had some episodes of hypoglycemia yesterday, decreased the insulin sliding scale to medium dose. Diabetic diet Chronic kidney disease End-stage renal disease Appears stable Follow renal function Nephrology following DVT prophylaxis Heparin Discharge Disposition: Discharge to SNF done, yet they need to accept her Alli Watkins MD Aug 06, 2017 10:31
[2017-08-06] MEDS: HEPARIN SODIUM - SQ 10,000 UNITS/ML VIAL SQ SCH ×2 (11:00→22:10)
--- NOTE | 2017-08-06 12:05 | HHI.NPPN ---
Subjective General Problems: Anemia, Hypertension Renal Failure: End Stage Renal Disease History of Present Illness 66-year-old white female with history of lung cancer status post wedge resection , she is a smoker and continues to smoke, ESRD, she has upper respiratory tract infection and has been recently discharged from the hospital, she had colonoscopy and biopsy showed colitis Possible ischemic versus pseudomembranous. Additional Remarks Patient is alert, feeling better today, no SOB. Objective Data Data Vital Signs Date Time Temp Pulse Resp B/P (MAP) Pulse Ox O2 Delivery O2 Flow Rate FiO2 08/06/17 06:00 70 08/06/17 05:49 97.7 87 15 122/59 (80) 94 08/06/17 05:00 70 08/06/17 03:57 72 08/06/17 03:49 Room Air 08/06/17 03:00 74 08/06/17 02:00 78 08/06/17 01:00 88 08/06/17 00:11 81 08/06/17 00:00 Nasal Cannula 2.00 08/06/17 00:00 98.0 82 18 127/58 (81) 96 08/05/17 23:00 86 08/05/17 22:45 100 Nasal Cannula 2.00 08/05/17 22:00 86 08/05/17 21:00 82 08/05/17 20:35 Room Air 08/05/17 20:35 98.4 97 20 139/69 (92) 95 08/05/17 20:04 85 08/05/17 19:00 84 08/05/17 16:00 98.4 75 16 129/66 (87) 94 08/05/17 15:19 98 21 -: 08/04/17 1153 08/05/17 0845 Physical Exam General Appearance: No Acute Distress, Comfortable Eyes Eye Exam: Pupils Equal Throat Throat Exam: Oral Mucosa Jensen & Moist Pulmonary Resp Exam: Breath Sounds Equal, No Distress, Decreased Bases Cardiology CV Exam: Regular, Normal Sinus Rhythm Gastrointestinal/Abdomen GI Exam: Soft, Non-Tender, Bowel Sounds Present Extremeties Extremities Exam: Trace Edema Neurologic Neuro Exam: Alert, Awake, Oriented Psychiatric Psych Exam: Appropriate Responses Assessment/Plan Problem List: (1) ESRD (end stage renal disease) ICD Codes: N18.6 - End stage renal disease Status: Chronic Plan: Patient is going to do dialysis on Saturday, and Saturdays. Continue supportive care Monitor cultures, negative so far and afebrile. HD seen at dialysis BP low to normal UF 2.5 L as tolerated has ? UTI follow culture on Zosyn (2) Neutropenia ICD Codes: D70.9 - Neutropenia, unspecified Status: Chronic Plan: Monitor blood count, seen by Hematology. (3) COPD (chronic obstructive pulmonary disease) ICD Codes: J44.9 - Chronic obstructive pulmonary disease, unspecified Status: Chronic Plan: History of lung cancer and continue to smoke cigarette, I have advised to stop smoking Problem Qualifiers (1) Neutropenia: Qualified Codes: D70.9 - Neutropenia, unspecified Oscar Jurado MD Aug 06, 2017 12:05
--- NOTE | 2017-08-06 12:33 | HHI.IDPN ---
Note Infectious Disease Note Patient seen in dialysis. Has cough. Sounds congested. Afebrile. Denies chest pain. 66-year-old white female who was admitted to the hospital with shortness of breath. The patient has a history of cyclic neutropenia. The temperature was normal on presentation. white count was 3.3 with 43% monocytes, 28 lymphocytes and 14% neutrophils. The patient has a history of autoimmune neutropenia. She receive medications for neutropenia periodically. While the patient was in the emergency department, she developed shaking chills and diaphoresis. She also noted pain at the mid chest and underneath the left rib cage. PAST MEDICAL HISTORY 1. COPD 2. Anxiety/depression 3. Coronary artery disease 4. Gastroesophageal reflux disease 5. Osteoarthritis 6. History of above aneurysm. 7. History of right femur fracture treated surgically. 8. Cholecystectomy 9. Brain aneurysm treatment with stent 10. Squamous cell carcinoma of the lung treated surgically. ALLERGIES CIPRO, CODEINE, MORPHINE. ANTIBIOTICS Piperacillin/tazobactam SOCIAL HISTORY The patient smokes three-quarter pack of cigarettes a day. Denies alcohol use. Denies illicit drugs. PHYSICAL EXAMINATION GENERAL: No acute distress. She is awake and alert and oriented. HEENT: The head is atraumatic. Extraocular movements grossly intact, pupils reactive to light. No icterus. Oropharynx moist mucosa without lesions. NECK: Supple without adenopathy. LUNGS: Rhonchi at the bases right > left. HEART: Regular S1 and S2. No murmurs, rubs or gallops heard. ABDOMEN: Bowel sounds present, soft, nontender. No palpable masses. EXTREMITIES: No clubbing or cyanosis or edema. SKIN: No rash. NEUROLOGIC: Grossly nonfocal. PSYCHIATRIC: Calm and cooperative. IMPRESSION 1. Pneumonia. 2. 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 3. End stage renal disease receiving hemodialysis, possible dialysis related infection. The patient last had dialysis yesterday. RECOMMENDATIONS 1. Obtain sputum for culture. Order written. 2. Continue Piperacillin/Tazobactam. 3. Repeat the CXR. 4. Give with oral metronidazole in light of her history of recent colitis 5. Monitor clinical status. Kameron Santos MD Aug 06, 2017 12:33
[2017-08-06] MEDS: REMOVE OLD PATCH T-DERMAL SCH (13:13)
[2017-08-06] MEDS: ASPIRIN 81 MG CHEW TAB CHEW SCH (13:13)
[2017-08-06] MEDS: FAMOTIDINE 20 MG TAB PO SCH (13:13)
[2017-08-06] MEDS: FLUoxetine HCL 20 MG CAP PO SCH (13:13)
[2017-08-06] MEDS: NICOTINE 14 MG/24 HR PATCH T-DERMAL SCH (13:13)
[2017-08-06] MEDS: buPROPion HCL 150 MG SUSTAINED RELEASE TAB PO SCH (13:13)
[2017-08-06] MEDS: SODIUM CHLORIDE 0.9% FLUSH 10 ML FLUSH IV FLUSH SCH ×2 (13:14→20:10)
[2017-08-06] MEDS: FILGRASTIM 300 MCG/ML VIAL SQ SCH ×2 (13:25→14:00)
[2017-08-06] MEDS: metroNIDAZOLE 500 MG TAB PO SCH ×2 (14:02→22:10)
--- NOTE | 2017-08-06 15:15 | RADRPT ---
EXAM DATE/TIME: 08/06/2017 13:40 [facility] COMPARISON: CHEST SINGLE AP, November 03, 2016, 2:40. CHEST PA & LAT, August 01, 2017, 18:47. INDICATIONS : Chest pain. MEDICAL HISTORY : Myocardial infarction, End stage emphysema, Brain aneurysm,Hypertension, COPD, Pneumonia, Diabetes, H iatal hernia, GERD SURGICAL HISTORY : Hiatal hernia, arteriovenous shunt, Wedge resection for squamous cell carcinoma, Cholecystectomy, Tub al ligation, Cardiac cath ENCOUNTER: Subsequent ACUITY: 4 - 6 days PAIN SCORE: 8/10 LOCATION: Bilateral chest FINDINGS: The heart is normal in size. The mediastinal contours are within normal limits. There is a sizable ar ea of atelectasis and scarring at the left lung base. This is similar to previous exam dated 11/03/16. There are chronic interstitial changes. The bony structures are intact. CONCLUSION: 1. Large area of atelectasis and scarring at the left lung base unchanged from previous exam. Shaheed Sheets MD on August 06, 2017 at 15:12 Board Certified Radiologist. This report was verified electronically.
[2017-08-06 15:41] LABS: CREATININE 4.93 MG/DL (0.50-1.00)
--- NOTE | 2017-08-06 16:09 | PD.ONC.PN ---
Subjective Subjective Remarks Afebrile overnight. Patient resting in bed calmly. Daughter at bedside is very concerned. She reports that last night her mother was very confused and she is concerned. She states her mother is usually confused but she just wants to make sure nothing further is wrong with her as she seemed more confused then usual. The patient is calm and alert and oriented x 3. the patient's daughter shows me a letter from Stacie Araujo in [facility] that indicates the patient has a history of dementia and does not have capacity to make medical decisions. The daughter then tells me she doesn't understand why another psychologist deemed the patient competent recently. She states (somewhat contradictory to her prior concern about her mothers confusion) that her mother is always confused and shes not sure why the nurses called her last night because her mother is always confused. Objective Data Date Time Temp Pulse Resp B/P (MAP) Pulse Ox O2 Delivery O2 Flow Rate FiO2 08/06/17 06:00 70 08/06/17 05:49 97.7 87 15 122/59 (80) 94 08/06/17 05:00 70 08/06/17 03:57 72 08/06/17 03:49 Room Air 08/06/17 03:00 74 08/06/17 02:00 78 08/06/17 01:00 88 08/06/17 00:11 81 08/06/17 00:00 Nasal Cannula 2.00 08/06/17 00:00 98.0 82 18 127/58 (81) 96 08/05/17 23:00 86 08/05/17 22:45 100 Nasal Cannula 2.00 08/05/17 22:00 86 08/05/17 21:00 82 08/05/17 20:35 Room Air 08/05/17 20:35 98.4 97 20 139/69 (92) 95 08/05/17 20:04 85 08/05/17 19:00 84 08/06/17 08/06/17 08/06/17 07:00 15:00 23:00 Intake Total 200 ml Output Total 150 ml Balance 50 ml Result Diagram: 08/04/17 1153 08/06/17 1433 Laboratory Results Laboratory Tests Test 08/06/17 01:33 08/06/17 14:33 Urine Color RED Urine Turbidity HAZY Urine pH 8.5 Urine Specific [place] 1.011 Urine Protein 100 mg/dL Urine Glucose (UA) TRACE mg/dL Urine Ketones NEG mg/dL Urine Occult Blood LARGE Urine Nitrite NEG Urine Bilirubin NEG Urine Urobilinogen LESS THAN 2.0 MG/DL Urine Leukocyte Esterase MOD Urine RBC /hpf Urine WBC 59 /hpf Urine Squamous Epithelial Cells 13 /hpf Creatinine 4.93 MG/DL Estimat Glomerular Filtration Rate 9 ML/MIN Imaging Studies Last 24 hours Impressions Chest X-Ray 08/06/17 0000 Signed Impressions: Service Date/Time: Sunday, August 06, 2017 13:40 - CONCLUSION: 1. Large area of atelectasis and scarring at the left lung base unchanged from previous exam. Shaheed Sheets MD Administered Medications Medications (Trade) Dose Ordered Sig/Carlos Route PRN Reason Start Time Stop Time Status Last Admin Dose Admin Alprazolam (Xanax) 1 mg BID PRN PO ANXIETY 08/01/17 22:30 08/05/17 23:25 Aspirin (Aspirin Chew) 81 mg DAILY CHEW 08/02/17 09:00 08/06/17 13:13 Budesonide/ Formoterol Fumarate (Symbicort 160-4.5 Mcg Inh) 2 puff Q12HR INH 08/02/17 09:00 08/05/17 20:32 Bupropion HCl (Wellbutrin Sr) 150 mg DAILY PO 08/02/17 09:00 08/06/17 13:13 Calcium Acetate (Phoslo) 667 mg TIDPC PO 08/02/17 09:30 08/06/17 13:21 Famotidine (Pepcid) 20 mg DAILY PO 08/02/17 09:00 08/06/17 13:13 Fluoxetine HCl (PROzac) 20 mg DAILY PO 08/02/17 09:00 08/06/17 13:13 Gabapentin (Neurontin) 100 mg BID PO 08/02/17 09:00 08/05/17 20:32 Lactulose (Lactulose Liq) 30 ml TID PO 08/02/17 09:00 08/04/17 16:54 Midodrine (Proamatine) 10 mg TID PO 08/02/17 09:00 08/05/17 05:06 Oxycodone HCl (Roxicodone) 10 mg Q6H PRN PO PAIN SCALE 1 TO 10 08/01/17 22:30 08/06/17 14:02 Ondansetron HCl (Zofran Odt) 4 mg Q6H PRN PO NAUSEA 08/01/17 22:45 08/04/17 08:45 Glucagon (Glucagon Inj) 1 mg UNSCH PRN OTHER HYPOGLYCEMIA-SEE COMMENTS 08/01/17 22:30 08/03/17 17:39 Sodium Chloride (NS Flush) 2 ml BID IV FLUSH 08/02/17 09:00 08/06/17 13:14 Heparin Sodium (Porcine) (Heparin Inj) 5,000 units Q12H SQ 08/01/17 23:00 08/05/17 11:42 Senna/Docusate Sodium (Marixa-Colace) 1 tab BID PO 08/02/17 09:00 08/03/17 12:29 Piperacillin Sod/ Tazobactam Sod 50 ml @ 100 mls/hr Q6H IV 08/02/17 17:00 08/05/17 22:39 Acetaminophen (Tylenol) 650 mg UNSCH PRN PO for headach, pain, temp > 101F 08/02/17 17:15 08/03/17 08:48 Nicotine (Habitrol 14 Mg Patch.24 Hr) 1 patch DAILY T-DERMAL 08/02/17 20:00 08/06/17 13:13 Miscellaneous Information 1 DAILY T-DERMAL 08/03/17 09:00 08/06/17 13:13 Filgrastim (Neupogen Inj) 300 mcg DAILY@14 SQ 08/03/17 14:00 08/06/17 14:00 Metronidazole (Flagyl) 500 mg Q8HR PO 08/06/17 14:00 08/06/17 14:02 Objective Remarks GENERAL: Elderly female, supine in bed resting. SKIN: Warm and dry. HEAD: Normocephalic. EYES: No injection or drainage. NECK: Supple, trachea midline. CARDIOVASCULAR: Regular rate and rhythm RESPIRATORY: Breath sounds equal bilaterally. No accessory muscle use. GASTROINTESTINAL: Abdomen soft, non-tender, nondistended. EXTREMITIES: No cyanosis, or edema. NEUROLOGICAL: No obvious focal deficit. Awake, alert, and oriented to time, place and self. Assessment/Plan Assessment 66y/o female with multiple medical problems. Oncology following for history of lung cancer, currently in remission and chronic neutropenia managed with periodic neupogen injections. Plan 1. I had an extensive discussion with the patient and daughter at the bedside. the daughter seems to be very anxious about leaving her mother for several days as she (the daughter) has to have gallbladder surgery. I discussed with the patient's daughter that we will obtain a workup for altered mental status, but I believe the patient's confusion last night is due to dementia + some delirium d/t a new environment. will obtain labs today, urine culture, CT brain. Nia Fuentes Aug 06, 2017 16:09
--- NOTE | 2017-08-06 19:14 | RADRPT ---
EXAM DATE/TIME: 08/06/2017 19:05 [facility] COMPARISON: CT BRAIN W/O CONTRAST, December 25, 2016, 17:16. INDICATIONS : Altered mental status. RADIATION DOSE: 42.93 CTDIvol (mGy) MEDICAL HISTORY : Carcinoma, lung. Aneurysm, intracranial. Hypertension. SURGICAL HISTORY : Brain. ENCOUNTER: Initial ACUITY: 1 day PAIN SCALE: 0/10 LOCATION: cranial TECHNIQUE: Multiple contiguous axial images were obtained of the head. Using automated exposure control and adj ustment of the mA and/or kV according to patient size, radiation dose was kept as low as reasonably a chievable to obtain optimal diagnostic quality images. DICOM format image data is available electro nically for review and comparison. FINDINGS: No acute intracranial mass, hemorrhage or shift. No hydrocephalus. There is prior coiling of the dist al basilar artery. No acute bony abnormalities. Paranasal sinuses are clear. CONCLUSION: 1. No acute intracranial abnormalities. No change from December 2016. Doug Sheriff MD on August 06, 2017 at 19:09 Board Certified Radiologist. This report was verified electronically.
[2017-08-06 21:20] LABS: HEMATOCRIT 31.1 % (35.0-46.0); HEMOGLOBIN 10.3 GM/DL (11.6-15.3); MEAN CELL VOLUME 91.3 FL (80.0-100.0); MEAN CORPUSCULAR HEMOGLOBIN 30.2 PG (27.0-34.0); MEAN CORPUSCULAR HGB CONC 33.1 % (32.0-36.0); MEAN PLATELET VOLUME 7.6 FL (7.0-11.0); PLATELET COUNT 197 TH/MM3 (150-450); RED BLOOD COUNT 3.41 MIL/MM3 (4.00-5.30); RED CELL DISTRIBUTION WIDTH 16.4 % (11.6-17.2); WHITE BLOOD COUNT 9.3 TH/MM3 (4.0-11.0)
[2017-08-06 21:46] LABS: ALBUMIN 3.2 GM/DL (3.4-5.0); ALKALINE PHOSPHATASE 141 U/L (45-117); ALT (GPT) 33 U/L (10-53); AST (GOT) 23 U/L (15-37); BICARBONATE 30.6 MEQ/L (21.0-32.0); BLOOD UREA NITROGEN 22 MG/DL (7-18); CALCIUM 8.9 MG/DL (8.5-10.1); CHLORIDE 99 MEQ/L (98-107); CREATININE 5.64 MG/DL (0.50-1.00); GLOMERULAR FILTRATION RATE 8 ML/MIN (>89); GLUCOSE,RANDOM 89 MG/DL (74-106); SODIUM (NA) 139 MEQ/L (136-145); TOTAL BILIRUBIN ADULT 0.4 MG/DL (0.2-1.0); TOTAL PROTEIN 7.4 GM/DL (6.4-8.2)
[2017-08-06] MEDS: ALPRAZolam 1 MG TAB PO PRN (22:10)
[2017-08-06 22:11] LABS: BANDS 15 % (0-6); BASOPHILS 1 % (0-2); LYMPHOCYTES 10 % (9-44); MONOCYTES 15 % (0-8); NEUTROPHIL # MANUAL DIFF 6.6 TH/MM3 (1.8-7.7); POLYS (SEG NEUTROPHILS) 56 % (16-70)
[2017-08-06 22:12] LABS: DOHLE BODIES PRESENT (NONE SEEN); TOXIC GRANULATION 1+ (NORMAL); TOXIC VACUOLATION PRESENT (NONE SEEN)
[2017-08-07] VITALS (31 sets, daily range): BP systolic 106–176; BP diastolic 56–79; PULSE 64–76; RESP 18–19; TEMP 97.3–98.6; O2SAT 95–99
[2017-08-07] MEDS: PIPERACIL-TAZO 2.25 GM PREMIX 50 ML IV SCH ×4 (04:15→22:14)
[2017-08-07] MEDS: metroNIDAZOLE 500 MG TAB PO SCH ×3 (04:15→22:13)
[2017-08-07] MEDS: INSULIN NovoLIN REGULAR SUPPLEMENTAL SCALE SQ SCH ×4 (08:00→20:40)
[2017-08-07] MEDS: FAMOTIDINE 20 MG TAB PO SCH (08:45)
[2017-08-07] MEDS: FLUoxetine HCL 20 MG CAP PO SCH (08:45)
[2017-08-07] MEDS: LACTULOSE SYRUP 20 GM/30 ML CUP PO SCH ×3 (08:45→16:57)
[2017-08-07] MEDS: BUDESONIDE-FORMOTEROL 160/4.5 MCG INHALER INH SCH ×2 (08:45→20:35)
[2017-08-07] MEDS: GABAPENTIN 100 MG CAP PO SCH ×2 (08:46→20:35)
[2017-08-07] MEDS: MIDODRINE 5 MG TAB PO SCH ×3 (08:46→16:59)
[2017-08-07] MEDS: CALCIUM ACETATE 667 MG CAP PO SCH ×3 (08:46→18:21)
[2017-08-07] MEDS: buPROPion HCL 150 MG SUSTAINED RELEASE TAB PO SCH (08:46)
[2017-08-07] MEDS: DOCUSATE SODIUM 50 MG/SENNA 8.6 MG TAB PO SCH ×2 (08:46→20:35)
[2017-08-07] MEDS: NICOTINE 14 MG/24 HR PATCH T-DERMAL SCH (08:48)
[2017-08-07] MEDS: SODIUM CHLORIDE 0.9% FLUSH 10 ML FLUSH IV FLUSH SCH ×2 (08:49→20:35)
[2017-08-07] MEDS: ASPIRIN 81 MG CHEW TAB CHEW SCH (08:49)
[2017-08-07] MEDS: REMOVE OLD PATCH T-DERMAL SCH (08:49)
--- NOTE | 2017-08-07 09:38 | HHI.FPPN ---
Subjective Remarks harsh cough now c/o sputum c/o weakness d/w RN Objective Vitals Vital Signs Date Time Temp Pulse Resp B/P (MAP) Pulse Ox O2 Delivery O2 Flow Rate FiO2 08/07/17 08:33 98.3 72 18 119/56 (77) 97 08/07/17 07:00 72 08/07/17 06:00 72 08/07/17 05:00 68 08/07/17 04:12 98.3 68 18 122/63 (82) 97 08/07/17 04:02 69 08/07/17 03:50 Nasal Cannula 2.00 08/07/17 03:00 68 08/07/17 02:00 72 08/07/17 01:00 70 08/07/17 00:11 74 08/07/17 00:08 98.4 75 18 118/64 (82) 98 08/06/17 23:34 73 08/06/17 23:34 Nasal Cannula 2.00 08/06/17 22:00 80 08/06/17 21:00 74 08/06/17 20:04 74 08/06/17 20:02 98.4 77 17 105/52 (69) 97 08/06/17 20:00 Room Air 08/06/17 18:00 98.0 80 16 137/58 (84) 97 08/06/17 17:45 98.0 80 16 137/58 (84) 97 08/06/17 13:22 98.3 82 16 128/66 (86) 97 I/O 08/06/17 08/06/17 08/06/17 08/07/17 08/07/17 08/07/17 07:00 15:00 23:00 07:00 15:00 23:00 Intake Total 200 ml 400 ml Output Total 150 ml 350 ml Balance 50 ml -350 ml 400 ml Intake Oral 200 ml 400 ml Output Urine Total 150 ml 350 ml # Bowel Movements 1 Result Diagram: 08/06/17204908/06/172049 Objective Remarks GENERAL: SKIN: Warm and dry. HEAD: Atraumatic. Normocephalic. EYES: Pupils equal and round. No scleral icterus. No injection or drainage. ENT: No nasal bleeding or discharge. Mucous membranes pink and moist. NECK: Trachea midline. No JVD. CARDIOVASCULAR: Regular rate and rhythm. RESPIRATORY: No accessory muscle use.b r/r GASTROINTESTINAL: Abdomen soft, non-tender, nondistended. Hepatic and splenic margins not palpable. MUSCULOSKELETAL: Extremities without clubbing, cyanosis, or edema. No obvious deformities. NEUROLOGICAL: Awake and alert. No obvious cranial nerve deficits. Motor grossly within normal limits. 1 out of 5 muscle strength in the arms and legs. Normal speech. PSYCHIATRIC: Appropriate mood and affect; insight and judgment normal. Medications and IVs Current Medications Medications (Trade) Dose Ordered Sig/Carlos Route Start Time Stop Time Status Last Admin (Xanax) 1 mg BID PRN PO 08/01/17 22:30 08/06/17 22:10 (Aspirin Chew) 81 mg DAILY CHEW 08/02/17 09:00 08/07/17 08:49 (Symbicort 160-4.5 Mcg Inh) 2 puff Q12HR INH 08/02/17 09:00 08/07/17 08:45 (Wellbutrin Sr) 150 mg DAILY PO 08/02/17 09:00 08/07/17 08:46 (Phoslo) 667 mg TIDPC PO 08/02/17 09:30 08/07/17 08:46 (Colace) 100 mg BID PRN PO 08/01/17 22:30 (Pepcid) 20 mg DAILY PO 08/02/17 09:00 08/07/17 08:45 (PROzac) 20 mg DAILY PO 08/02/17 09:00 08/07/17 08:45 (Neurontin) 100 mg BID PO 08/02/17 09:00 08/07/17 08:46 (Lactulose Liq) 30 ml TID PO 08/02/17 09:00 08/04/17 16:54 (Emla Cream) 1 applic BID PRN TOPICAL 08/01/17 22:30 (Proamatine) 10 mg TID PO 08/02/17 09:00 08/07/17 08:46 (Roxicodone) 10 mg Q6H PRN PO 08/01/17 22:30 08/07/17 08:46 (Zofran Odt) 4 mg Q6H PRN PO 08/01/17 22:45 08/04/17 08:45 (Glucagon Inj) 1 mg STAT PRN IM 08/01/17 22:30 (D50w (Vial) Inj) 50 ml UNSCH PRN IV PUSH 08/01/17 22:30 (Glucagon Inj) 1 mg UNSCH PRN OTHER 08/01/17 22:30 08/03/17 17:39 (NS Flush) 2 ml UNSCH PRN IV FLUSH 08/01/17 22:30 (NS Flush) 2 ml BID IV FLUSH 08/02/17 09:00 08/07/17 08:49 (Heparin Inj) 5,000 units Q12H SQ 08/01/17 23:00 08/06/17 22:10 (Narcan Inj) 0.4 mg UNSCH PRN IV PUSH 08/01/17 22:30 (Marixa-Colace) 1 tab BID PO 08/02/17 09:00 08/03/17 12:29 (Milk Of Magnesia Liq) 30 ml Q12H PRN PO 08/01/17 22:30 (Senokot) 17.2 mg Q12H PRN PO 08/01/17 22:30 (Dulcolax Supp) 10 mg DAILY PRN RECTAL 08/01/17 22:30 (Lactulose Liq) 30 ml DAILY PRN PO 08/01/17 22:30 Pharmacy Profile Note 0 ml @ 0 mls/hr UNSCH OTHER 08/01/17 22:45 Piperacillin Sod/ Tazobactam Sod 50 ml @ 100 mls/hr Q6H IV 08/02/17 17:00 08/07/17 04:15 Sodium Chloride 1,000 ml @ 0 mls/hr Q0M PRN OTHER 08/02/17 17:09 (Heparin Inj) 8,000 units UNSCH PRN IV FLUSH 08/02/17 17:15 Sodium Chloride 1,000 ml @ 200 mls/hr Q5H PRN IV 08/02/17 17:09 Sodium Chloride 1,000 ml @ 0 mls/hr Q0M PRN OTHER 08/02/17 17:09 (Mannitol Inj) 12.5 gm UNSCH PRN IV 08/02/17 17:15 Albumin Human 100 ml @ 60 mls/hr UNSCH PRN IV 08/02/17 17:15 (NS Flush) 5 ml UNSCH PRN IV FLUSH 08/02/17 17:15 (Zofran Inj) 4 mg UNSCH PRN IV PUSH 08/02/17 17:15 (Tylenol) 650 mg UNSCH PRN PO 08/02/17 17:15 08/03/17 08:48 (Benadryl) 25 mg UNSCH PRN PO 08/02/17 17:15 (Nitrostat Sl) 0.4 mg UNSCH PRN SL 08/02/17 17:15 (Catapres) 0.1 mg UNSCH PRN PO 08/02/17 17:15 (Gelfoam 12 Mm/7 Mm Top) 1 foam UNSCH PRN TOP 08/02/17 17:15 (Habitrol 14 Mg Patch.24 Hr) 1 patch DAILY T-DERMAL 08/02/17 20:00 08/07/17 08:48 Miscellaneous Information 1 DAILY T-DERMAL 08/03/17 09:00 08/07/17 08:49 (NovoLIN R SUPPLEMENTAL SCALE) 1 ACHS SLIDING SCALE SQ 08/04/17 12:00 (Flagyl) 500 mg Q8HR PO 08/06/17 14:00 08/07/17 04:15 A/P Assessment and Plan 66-year-old female admitted secondary to sepsis and pneumonia with neutropenia Sepsis Resolved uti- on abx per ID Neutropenia Neupogen provided Hematology following Follow CBC Continue neutropenic precautions HCAP Bacterial pneumonia Continue duo nebs Continue oxygen supplementation as needed check sputum cultures per ID Decreased mobility Physical decompensation Continue physical therapy Heparin for DVT prophylaxis COPD No exacerbation No change to baseline treatments Colitis Monitor for recurrence ON FLAGYL Diabetes mellitus type 2 Follow blood sugars Insulin sliding scale Patient had some episodes of hypoglycemia yesterday, decreased the insulin sliding scale to medium dose. Diabetic diet Chronic kidney disease End-stage renal disease Appears stable Follow renal function Nephrology following DVT prophylaxis Heparin Discharge Disposition: Discharge to [facility] done, 3008 IN CHART, jasmina accepted her pending medical stability... Alli Watkins MD Aug 07, 2017 09:37
--- NOTE | 2017-08-07 09:57 | PQ ---
Physician Query Response Document PATIENT: ENZO ZUNIGA : 1950 ADMIT DATE: 08/05/2017 1:53 PM DISCH DATE: RESPONDING PROVIDER #: Sanket QUERY TEXT: Sepsis Query Based on your medical judgement, can you further clarify the followin. Sepsis (SIRS due to an infection) 2. Sepsis with Organ Dysfunction 3. A localized Infection only 4. Another condition - please specify 5. Unable to determine - please explain. Depending on your selection above, please indicate one of the below if applicable: - Sepsis was present on Admission - Sepsis developed after admission The patient's Clinical Indicators include: 08/02/17 Admission Diagnosis Neutropenia, possible Bacteremia ASSESSMENT AND PLAN STATES: (1) Sepsis (2) Pneumonia, bacterial (3) Impaired mobility and activities of daily living (4) Bacteremia associated with intravascular line PER 08/02/17 ID CONSULT - IMPRESSION 1. Probable pneumonia in a patient who presented with respiratory symptoms and has abnormal chest x-ray and chest pain. 2. Rule out bacteremia in a patient who also had shaking chills. 3. 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 4. End stage renal disease receiving hemodialysis, possible dialysis related infection. The patient last had dialysis yesterday. CURRENT CLINICAL INDICATORS FOR SEPSIS: Source stated as PNEUMONIA, WBC - 3.3 -- NOT ALL CRITERIA MET FOR SEPSIS DX: NO DOCUMENTED FEVER / TACHYCARDIA / TACHYPNEA NO LACTIC ACID REFLECTED IN LABS NO DOCUMENTED SIGNS FOR AVF INFECTION Query created by: Riri Lim on 08/06/2017 8:58 AM RESPONSE TEXT: Sepsis due to HCAP Electronically signed by: Alli Watkins MD 08/07/2017 9:53 AM
--- NOTE | 2017-08-07 10:57 | HHI.NPPN ---
Subjective General Problems: Anemia, Hypertension Renal Failure: End Stage Renal Disease History of Present Illness 66-year-old white female with history of lung cancer status post wedge resection , she is a smoker and continues to smoke, ESRD, she has upper respiratory tract infection and has been recently discharged from the hospital, she had colonoscopy and biopsy showed colitis Possible ischemic versus pseudomembranous. Additional Remarks Patient is alert, feeling better today, no SOB. Objective Data Data Vital Signs Date Time Temp Pulse Resp B/P (MAP) Pulse Ox O2 Delivery O2 Flow Rate FiO2 08/07/17 10:00 75 08/07/17 09:57 Room Air 08/07/17 09:00 70 08/07/17 08:33 98.3 72 18 119/56 (77) 97 08/07/17 08:00 70 08/07/17 07:00 72 08/07/17 06:00 72 08/07/17 05:00 68 08/07/17 04:12 98.3 68 18 122/63 (82) 97 08/07/17 04:02 69 08/07/17 03:50 Nasal Cannula 2.00 08/07/17 03:00 68 08/07/17 02:00 72 08/07/17 01:00 70 08/07/17 00:11 74 08/07/17 00:08 98.4 75 18 118/64 (82) 98 08/06/17 23:34 73 08/06/17 23:34 Nasal Cannula 2.00 08/06/17 22:00 80 08/06/17 21:00 74 08/06/17 20:04 74 08/06/17 20:02 98.4 77 17 105/52 (69) 97 08/06/17 20:00 Room Air 08/06/17 18:00 98.0 80 16 137/58 (84) 97 08/06/17 17:45 98.0 80 16 137/58 (84) 97 08/06/17 13:22 98.3 82 16 128/66 (86) 97 -: [id number] Physical Exam General Appearance: No Acute Distress, Comfortable Eyes Eye Exam: Pupils Equal Throat Throat Exam: Oral Mucosa [place] & Moist Pulmonary Resp Exam: Breath Sounds Equal, No Distress, Decreased Bases Cardiology CV Exam: Regular, Normal Sinus Rhythm Gastrointestinal/Abdomen GI Exam: Soft, Non-Tender, Bowel Sounds Present Extremeties Extremities Exam: Trace Edema Neurologic Neuro Exam: Alert, Awake, Oriented Psychiatric Psych Exam: Appropriate Responses Assessment/Plan Problem List: (1) ESRD (end stage renal disease) ICD Codes: N18.6 - End stage renal disease Status: Chronic Plan: Patient is going to do dialysis on Saturday, and Saturdays. Continue supportive care Monitor cultures, negative so far and afebrile. has ? UTI follow culture on Zosyn (2) Neutropenia ICD Codes: D70.9 - Neutropenia, unspecified Status: Chronic Plan: Monitor blood count, seen by Hematology. (3) COPD (chronic obstructive pulmonary disease) ICD Codes: J44.9 - Chronic obstructive pulmonary disease, unspecified Status: Chronic Plan: History of lung cancer and continue to smoke cigarette, I have advised to stop smoking Problem Qualifiers (1) Neutropenia: Qualified Codes: D70.9 - Neutropenia, unspecified Oscar Jurado MD Aug 07, 2017 10:56
[2017-08-07] MEDS: HEPARIN SODIUM - SQ 10,000 UNITS/ML VIAL SQ SCH ×2 (11:46→22:13)
--- NOTE | 2017-08-07 16:06 | HHI.IDPN ---
Note Infectious Disease Note Patient notes right sided chest pain. (+) Cough. No sputum production. Not able to give sputum sample. Afebrile. Denies SOB. WBC increased. 66-year-old white female who was admitted to the hospital with shortness of breath. The patient has a history of cyclic neutropenia. The temperature was normal on presentation. white count was 3.3 with 43% monocytes, 28 lymphocytes and 14% neutrophils. The patient has a history of autoimmune neutropenia. She receives medications for neutropenia periodically. While the patient was in the emergency department, she developed shaking chills and diaphoresis. She also noted pain at the mid chest and underneath the left rib cage. PAST MEDICAL HISTORY 1. COPD 2. Anxiety/depression 3. Coronary artery disease 4. Gastroesophageal reflux disease 5. Osteoarthritis 6. History of above aneurysm. 7. History of right femur fracture treated surgically. 8. Cholecystectomy 9. Brain aneurysm treatment with stent 10. Squamous cell carcinoma of the lung treated surgically. ALLERGIES CIPRO, CODEINE, MORPHINE. ANTIBIOTICS Piperacillin/tazobactam SOCIAL HISTORY The patient smokes three-quarter pack of cigarettes a day. Denies alcohol use. Denies illicit drugs. OBJ: Vital Signs Date Time Temp Pulse Resp B/P (MAP) Pulse Ox O2 Delivery O2 Flow Rate FiO2 08/07/17 15:39 98.6 66 18 162/76 (104) 97 08/07/17 14:05 161/79 (106) 08/07/17 14:00 76 08/07/17 13:00 64 08/07/17 12:00 68 08/07/17 11:49 171/79 (109) 08/07/17 11:43 98.0 71 176/79 (111) 98 08/07/17 11:00 71 08/07/17 10:24 95 21 08/07/17 10:00 75 08/07/17 09:57 Room Air 08/07/17 09:00 70 08/07/17 08:33 98.3 72 18 119/56 (77) 97 08/07/17 08:00 70 08/07/17 07:00 72 08/07/17 06:00 72 08/07/17 05:00 68 08/07/17 04:12 98.3 68 18 122/63 (82) 97 08/07/17 04:02 69 2/14/18 03:50 Nasal Cannula 2.00 08/07/17 03:00 68 08/07/17 02:00 72 08/07/17 01:00 70 08/07/17 00:11 74 08/07/17 00:08 98.4 75 18 118/64 (82) 98 08/06/17 23:34 73 08/06/17 23:34 Nasal Cannula 2.00 08/06/17 22:00 80 08/06/17 21:00 74 08/06/17 20:04 74 08/06/17 20:02 98.4 77 17 105/52 (69) 97 08/06/17 20:00 Room Air 08/06/17 18:00 98.0 80 16 137/58 (84) 97 08/06/17 17:45 98.0 80 16 137/58 (84) 97 Laboratory Tests Test 08/06/17 20:50 White Blood Count 9.3 TH/MM3 Red Blood Count 3.41 MIL/MM3 Hemoglobin 10.3 GM/DL Hematocrit 31.1 % Mean Corpuscular Volume 91.3 FL Mean Corpuscular Hemoglobin 30.2 PG Mean Corpuscular Hemoglobin Concent 33.1 % Red Cell Distribution Width 16.4 % Platelet Count 197 TH/MM3 Mean Platelet Volume 7.6 FL CBC Comment AUTO DIFF Differential Total Cells Counted 100 Neutrophils % (Manual) 56 % Band Neutrophils % 15 % Lymphocytes % 10 % Monocytes % 15 % Eosinophils % 3 % Basophils % 1 % Neutrophils # (Manual) 6.6 TH/MM3 Differential Comment FINAL DIFF MANUAL Toxic Granulation 1+ Toxic Vacuolation PRESENT Dohle Bodies PRESENT Platelet Estimate NORMAL Platelet Morphology Comment NORMAL Laboratory Tests Test 08/06/17 14:33 08/06/17 20:50 Creatinine 4.93 MG/DL 5.64 MG/DL Estimat Glomerular Filtration Rate 9 ML/MIN 8 ML/MIN Blood Urea Nitrogen 22 MG/DL Random Glucose 89 MG/DL Total Protein 7.4 GM/DL Albumin 3.2 GM/DL Calcium Level 8.9 MG/DL Alkaline Phosphatase 141 U/L Aspartate Amino Transf (AST/SGOT) 23 U/L Alanine Aminotransferase (ALT/SGPT) 33 U/L Total Bilirubin 0.4 MG/DL Sodium Level 139 MEQ/L Potassium Level 4.4 MEQ/L Chloride Level 99 MEQ/L Carbon Dioxide Level 30.6 MEQ/L Anion Gap 9 MEQ/L Microbiology Date/Time Source Procedure Growth Status 08/06/17 01:33 Urine Clean Catch Urine Culture - Preliminary No growth. Resulted IMAGING: Head CT 08/06/17 0000 Signed Impressions: Service Date/Time: Sunday, August 06, 2017 19:05 - CONCLUSION: 1. No acute intracranial abnormalities. No change from December 2016. Doug Sheriff MD Chest X-Ray 08/06/17 0000 Signed Impressions: Service Date/Time: Sunday, August 06, 2017 13:40 - CONCLUSION: 1. Large area of atelectasis and scarring at the left lung base unchanged from previous exam. Shaheed Sheets MD PHYSICAL EXAMINATION GENERAL: No acute distress. She is awake and alert and oriented. HEENT: The head is atraumatic. Extraocular movements grossly intact, pupils reactive to light. No icterus. Oropharynx moist mucosa without lesions. NECK: Supple without adenopathy. LUNGS: Basilar rhonchi. HEART: Regular S1 and S2. No murmurs, rubs or gallops heard. ABDOMEN: Bowel sounds present, soft, nontender. No palpable masses. EXTREMITIES: No clubbing or cyanosis or edema. SKIN: No rash. NEUROLOGIC: Grossly nonfocal. PSYCHIATRIC: Calm and cooperative. IMPRESSION 1. Pneumonia. 2. 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 3. End stage renal disease receiving hemodialysis, possible dialysis related infection. RECOMMENDATIONS 1. Continue Piperacillin/Tazobactam. 2. Continue oral metronidazole in light of her history of recent colitis 3. Monitor clinical status. 4. CT of the chest to evaluate cause of the cough. Kameron Santos MD Aug 07, 2017 16:06
--- NOTE | 2017-08-07 19:37 | RADRPT ---
EXAM DATE/TIME: 08/07/2017 19:00 [facility] COMPARISON: CT ABDOMEN & PELVIS W/O CONTRAST, July 09, 2017, 10:51. INDICATIONS : Pulmonary disease. RADIATION DOSE: 9.55 CTDIvol (mGy) MEDICAL HISTORY : Chronic obstructive pulmonary disease. Hypertension. Cardiovascular disease Squamous cell carcinoma o f the lung SURGICAL HISTORY : Lobectomy ENCOUNTER: Initial ACUITY: 1 day PAIN SCALE: 0/10 LOCATION: Bilateral cranial TECHNIQUE: Volumetric scanning of the chest was performed. Using automated exposure control and adjustment of t he mA and/or kV according to patient size, radiation dose was kept as low as reasonably achievable to obtain optimal diagnostic quality images. DICOM format image data is available electronically for r eview and comparison. Follow-up recommendations for detected pulmonary nodules are based at a minimum on nodule size and pa tient risk factors according to Fleischner Society Guidelines. FINDINGS: There are old healed rib fractures in the left chest. Small right pleural effusion is present. There is dense airspace consolidation left lower lobe with scattered areas of infiltrates in left upper lob e, right lower lobe as well. There is a tiny pericardial effusion and there are lymph nodes within th e mediastinum nonspecific. The liver is not adequately characterized and the spleen measures 15.8 cm in size. Possibility of hepatic vein or portal vein thrombosis is not excluded. CONCLUSION: 1. There is dense air space consolidation left lung with scattered infiltrates in the lungs and right pleural effusion. 2. Slight splenomegaly and the liver is not adequately characterized and possibility of hepatic vein or portal vein thrombosis is not excluded. Ivana Dumont MD on August 07, 2017 at 19:32 Board Certified Radiologist. This report was verified electronically.
[2017-08-07] MEDS: ALPRAZolam 1 MG TAB PO PRN (20:35)
[2017-08-08] VITALS (12 sets, daily range): BP systolic 123–165; BP diastolic 57–79; PULSE 62–78; RESP 18–20; TEMP 97.6–98.7; O2SAT 94–98
[2017-08-08] MEDS: metroNIDAZOLE 500 MG TAB PO SCH ×2 (05:31→13:25)
[2017-08-08] MEDS: PIPERACIL-TAZO 2.25 GM PREMIX 50 ML IV SCH ×2 (05:31→11:00)
[2017-08-08 06:42] LABS: AUTOMATED NEUTROPHIL # 7.3 TH/MM3 (1.8-7.7); BASOPHIL # 0.1 TH/MM3 (0-0.2); BASOPHIL % 0.8 % (0.0-2.0); EOSINOPHIL # 0.6 TH/MM3 (0-0.4); EOSINOPHIL % 5.5 % (0.0-4.0); HEMATOCRIT 33.3 % (35.0-46.0); LYMPH % 7.4 % (9.0-44.0); LYMPHOCYTE # 0.8 TH/MM3 (1.0-4.8); MEAN CELL VOLUME 91.9 FL (80.0-100.0); MEAN CORPUSCULAR HEMOGLOBIN 30.3 PG (27.0-34.0); MEAN PLATELET VOLUME 7.6 FL (7.0-11.0); MONO % 14.2 % (0.0-8.0); MONOCYTE # 1.4 TH/MM3 (0-0.9); NEUT % 72.1 % (16.0-70.0); PLATELET COUNT 203 TH/MM3 (150-450); RED BLOOD COUNT 3.63 MIL/MM3 (4.00-5.30); RED CELL DISTRIBUTION WIDTH 16.7 % (11.6-17.2); WHITE BLOOD COUNT 10.2 TH/MM3 (4.0-11.0)
[2017-08-08 07:02] LABS: ALBUMIN 2.9 GM/DL (3.4-5.0); CALCIUM 9.2 MG/DL (8.5-10.1); CREATININE 7.62 MG/DL (0.50-1.00); PHOSPHORUS 4.1 MG/DL (2.5-4.9)
[2017-08-08] MEDS: INSULIN NovoLIN REGULAR SUPPLEMENTAL SCALE SQ SCH ×2 (08:00→12:00)
[2017-08-08] MEDS: DOCUSATE SODIUM 50 MG/SENNA 8.6 MG TAB PO SCH (08:31)
[2017-08-08] MEDS: CALCIUM ACETATE 667 MG CAP PO SCH ×2 (08:31→13:25)
[2017-08-08] MEDS: ASPIRIN 81 MG CHEW TAB CHEW SCH (08:31)
[2017-08-08] MEDS: FLUoxetine HCL 20 MG CAP PO SCH (08:31)
[2017-08-08] MEDS: GABAPENTIN 100 MG CAP PO SCH (08:32)
[2017-08-08] MEDS: FAMOTIDINE 20 MG TAB PO SCH (08:32)
[2017-08-08] MEDS: NICOTINE 14 MG/24 HR PATCH T-DERMAL SCH (08:32)
[2017-08-08] MEDS: BUDESONIDE-FORMOTEROL 160/4.5 MCG INHALER INH SCH (08:32)
[2017-08-08] MEDS: MIDODRINE 5 MG TAB PO SCH ×2 (08:33→13:00)
[2017-08-08 08:37] LABS: BANDS 6 % (0-6); LYMPHOCYTES 14 % (9-44); MONOCYTES 15 % (0-8); NEUTROPHIL # MANUAL DIFF 6.7 TH/MM3 (1.8-7.7); POLYS (SEG NEUTROPHILS) 60 % (16-70)
[2017-08-08] MEDS: buPROPion HCL 150 MG SUSTAINED RELEASE TAB PO SCH (08:38)
[2017-08-08] MEDS: SODIUM CHLORIDE 0.9% FLUSH 10 ML FLUSH IV FLUSH SCH (08:38)
[2017-08-08] MEDS: LACTULOSE SYRUP 20 GM/30 ML CUP PO SCH ×2 (08:39→13:25)
[2017-08-08] MEDS: REMOVE OLD PATCH T-DERMAL SCH (08:40)
--- NOTE | 2017-08-08 12:45 | HHI.IDPN ---
Note Infectious Disease Note Patient notes right sided chest pain off and on. No sputum production. Not able to give sputum sample. Afebrile. Notes SOB. On room air. Notes body aches. Ct chest noted. the consolidation note at the left lung does not appear different from october 2016. 66-year-old white female who was admitted to the hospital with shortness of breath. The patient has a history of cyclic neutropenia. The temperature was normal on presentation. white count was 3.3 with 43% monocytes, 28 lymphocytes and 14% neutrophils. The patient has a history of autoimmune neutropenia. She receives medications for neutropenia periodically. While the patient was in the emergency department, she developed shaking chills and diaphoresis. She also noted pain at the mid chest and underneath the left rib cage. PAST MEDICAL HISTORY 1. COPD 2. Anxiety/depression 3. Coronary artery disease 4. Gastroesophageal reflux disease 5. Osteoarthritis 6. History of above aneurysm. 7. History of right femur fracture treated surgically. 8. Cholecystectomy 9. Brain aneurysm treatment with stent 10. Squamous cell carcinoma of the lung treated surgically. ALLERGIES CIPRO, CODEINE, MORPHINE. ANTIBIOTICS Piperacillin/tazobactam SOCIAL HISTORY The patient smokes three-quarter pack of cigarettes a day. Denies alcohol use. Denies illicit drugs. OBJ: Vital Signs Date Time Temp Pulse Resp B/P (MAP) Pulse Ox O2 Delivery O2 Flow Rate FiO2 08/08/17 12:27 Room Air 08/08/17 08:00 64 08/08/17 08:00 97.8 67 18 154/79 (104) 98 08/08/17 08:00 Room Air 08/08/17 06:00 62 08/08/17 05:31 98.2 64 18 140/67 (91) 94 08/08/17 05:00 64 08/08/17 03:58 65 08/08/17 03:00 Nasal Cannula 2.00 21 08/08/17 03:00 66 08/08/17 02:00 68 08/08/17 01:00 68 08/08/17 00:57 98.7 78 20 165/66 (99) 98 08/08/17 00:02 68 08/08/17 00:00 Nasal Cannula 2.00 08/07/17 23:00 66 08/07/17 22:00 66 08/07/17 21:22 65 08/07/17 20:30 Room Air 08/07/17 20:29 97.3 67 19 106/57 (73) 99 08/07/17 18:00 66 08/07/17 17:00 70 08/07/17 16:00 65 08/07/17 15:39 98.6 66 18 162/76 (104) 97 08/07/17 15:00 66 08/07/17 14:05 161/79 (106) 08/07/17 14:00 76 08/07/17 13:00 64 Laboratory Tests Test 08/06/17 20:50 08/08/17 05:50 White Blood Count 9.3 TH/MM3 10.2 TH/MM3 Red Blood Count 3.41 MIL/MM3 3.63 MIL/MM3 Hemoglobin 10.3 GM/DL 11.0 GM/DL Hematocrit 31.1 % 33.3 % Mean Corpuscular Volume 91.3 FL 91.9 FL Mean Corpuscular Hemoglobin 30.2 PG 30.3 PG Mean Corpuscular Hemoglobin Concent 33.1 % 33.0 % Red Cell Distribution Width 16.4 % 16.7 % Platelet Count 197 TH/MM3 203 TH/MM3 Mean Platelet Volume 7.6 FL 7.6 FL CBC Comment AUTO DIFF AUTO DIFF Differential Total Cells Counted 100 100 Neutrophils % (Manual) 56 % 60 % Band Neutrophils % 15 % 6 % Lymphocytes % 10 % 14 % Monocytes % 15 % 15 % Eosinophils % 3 % 5 % Basophils % 1 % Neutrophils # (Manual) 6.6 TH/MM3 6.7 TH/MM3 Differential Comment FINAL DIFF MANUAL FINAL DIFF MANUAL Toxic Granulation 1+ Toxic Vacuolation PRESENT Dohle Bodies PRESENT Platelet Estimate NORMAL NORMAL Platelet Morphology Comment NORMAL NORMAL Neutrophils (%) (Auto) 72.1 % Lymphocytes (%) (Auto) 7.4 % Monocytes (%) (Auto) 14.2 % Eosinophils (%) (Auto) 5.5 % Basophils (%) (Auto) 0.8 % Neutrophils # (Auto) 7.3 TH/MM3 Lymphocytes # (Auto) 0.8 TH/MM3 Monocytes # (Auto) 1.4 TH/MM3 Eosinophils # (Auto) 0.6 TH/MM3 Basophils # (Auto) 0.1 TH/MM3 Red Cell Morphology Comment NORMAL Laboratory Tests Test 08/06/17 14:33 08/06/17 20:50 08/08/17 05:50 Creatinine 4.93 MG/DL 5.64 MG/DL 7.62 MG/DL Estimat Glomerular Filtration Rate 9 ML/MIN 8 ML/MIN 5 ML/MIN Blood Urea Nitrogen 22 MG/DL 37 MG/DL Random Glucose 89 MG/DL 61 MG/DL Total Protein 7.4 GM/DL Albumin 3.2 GM/DL 2.9 GM/DL Calcium Level 8.9 MG/DL 9.2 MG/DL Alkaline Phosphatase 141 U/L Aspartate Amino Transf (AST/SGOT) 23 U/L Alanine Aminotransferase (ALT/SGPT) 33 U/L Total Bilirubin 0.4 MG/DL Sodium Level 139 MEQ/L 138 MEQ/L Potassium Level 4.4 MEQ/L 5.3 MEQ/L Chloride Level 99 MEQ/L 101 MEQ/L Carbon Dioxide Level 30.6 MEQ/L 25.0 MEQ/L Anion Gap 9 MEQ/L 12 MEQ/L Phosphorus Level 4.1 MG/DL Microbiology Date/Time Source Procedure Growth Status 08/06/17 01:33 Urine Clean Catch Urine Culture - Final 10-50,000 CFU/ML MIXED GRAM POSITIVE ... Complete IMAGING: Chest CT 08/07/17 0000 Signed Impressions: Service Date/Time: Monday, August 07, 2017 19:00 - CONCLUSION: 1. There is dense air space consolidation left lung with scattered infiltrates in the lungs and right pleural effusion. 2. Slight splenomegaly and the liver is not adequately characterized and possibility of hepatic vein or portal vein thrombosis is not excluded. Ivana Dumont MD Head CT 08/06/17 0000 Signed Impressions: Service Date/Time: Sunday, August 06, 2017 19:05 - CONCLUSION: 1. No acute intracranial abnormalities. No change from December 2016. Doug Sheriff MD Chest X-Ray 08/06/17 0000 Signed Impressions: Service Date/Time: Sunday, August 06, 2017 13:40 - CONCLUSION: 1. Large area of atelectasis and scarring at the left lung base unchanged from previous exam. Shaheed Sheets MD PHYSICAL EXAMINATION GENERAL: No acute distress. She is awake and alert and oriented. HEENT: The head is atraumatic. Extraocular movements grossly intact, pupils reactive to light. No icterus. Oropharynx moist mucosa without lesions. NECK: Supple without adenopathy. LUNGS: Clear on the right. Decreased at the left base. HEART: Regular S1 and S2. No murmurs, rubs or gallops. ABDOMEN: Bowel sounds present, soft, nontender. No palpable masses. EXTREMITIES: No clubbing or cyanosis or edema. SKIN: No rash. NEUROLOGIC: Grossly nonfocal. PSYCHIATRIC: Calm and cooperative. IMPRESSION 1. Pneumonia. stable. 2. 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 3. End stage renal disease receiving hemodialysis, possible dialysis related infection. WBC improved with Filgastrim RECOMMENDATIONS 1. Stop Piperacillin/Tazobactam. 2. PO Cefuroxime 250mg bid x 7 days. 3. Continue oral metronidazole 500 mg PO tid x 7 days along with the Cefuroxime. Kameron Santos MD Aug 08, 2017 12:45
[2017-08-08] MEDS: HEPARIN SODIUM - SQ 10,000 UNITS/ML VIAL SQ SCH (13:26)
--- NOTE | 2017-08-08 14:23 | HHI.NPPN ---
Subjective General Problems: Anemia, Hypertension Renal Failure: End Stage Renal Disease History of Present Illness 66-year-old white female with history of lung cancer status post wedge resection , she is a smoker and continues to smoke, ESRD, she has upper respiratory tract infection and has been recently discharged from the hospital, she had colonoscopy and biopsy showed colitis Possible ischemic versus pseudomembranous. Additional Remarks Patient is alert, feeling better today, no SOB. Objective Data Data 08/08/17 08/09/17 19:00 07:00 Output Total 2000 ml Balance -2000 ml Hemodialysis 2000 ml Vital Signs Date Time Temp Pulse Resp B/P (MAP) Pulse Ox O2 Delivery O2 Flow Rate FiO2 08/08/17 13:32 71 08/08/17 13:00 97.6 68 18 123/57 (79) 97 08/08/17 12:27 Room Air 08/08/17 08:00 64 08/08/17 08:00 97.8 67 18 154/79 (104) 98 08/08/17 08:00 Room Air 08/08/17 06:00 62 08/08/17 05:31 98.2 64 18 140/67 (91) 94 08/08/17 05:00 64 08/08/17 03:58 65 08/08/17 03:00 Nasal Cannula 2.00 21 08/08/17 03:00 66 08/08/17 02:00 68 08/08/17 01:00 68 08/08/17 00:57 98.7 78 20 165/66 (99) 98 08/08/17 00:02 68 08/08/17 00:00 Nasal Cannula 2.00 08/07/17 23:00 66 08/07/17 22:00 66 08/07/17 21:22 65 08/07/17 20:30 Room Air 08/07/17 20:29 97.3 67 19 106/57 (73) 99 08/07/17 18:00 66 08/07/17 17:00 70 08/07/17 16:00 65 08/07/17 15:39 98.6 66 18 162/76 (104) 97 08/07/17 15:00 66 -: 08/08/17 0550 08/08/17 0550 Medication Review Current Medications Medications (Trade) Dose Ordered Sig/Carlos Route Start Time Stop Time Status Last Admin (Xanax) 1 mg BID PRN PO 08/01/17 22:30 08/07/17 20:35 (Aspirin Chew) 81 mg DAILY CHEW 08/02/17 09:00 08/08/17 08:31 (Symbicort 160-4.5 Mcg Inh) 2 puff Q12HR INH 08/02/17 09:00 08/08/17 08:32 (Wellbutrin Sr) 150 mg DAILY PO 08/02/17 09:00 08/08/17 08:38 (Phoslo) 667 mg TIDPC PO 08/02/17 09:30 08/08/17 13:25 (Colace) 100 mg BID PRN PO 08/01/17 22:30 (Pepcid) 20 mg DAILY PO 08/02/17 09:00 08/08/17 08:32 (PROzac) 20 mg DAILY PO 08/02/17 09:00 08/08/17 08:31 (Neurontin) 100 mg BID PO 08/02/17 09:00 08/08/17 08:32 (Lactulose Liq) 30 ml TID PO 08/02/17 09:00 08/08/17 13:25 (Emla Cream) 1 applic BID PRN TOPICAL 08/01/17 22:30 (Proamatine) 10 mg TID PO 08/02/17 09:00 08/07/17 08:46 (Roxicodone) 10 mg Q6H PRN PO 08/01/17 22:30 08/08/17 08:38 (Zofran Odt) 4 mg Q6H PRN PO 08/01/17 22:45 08/04/17 08:45 (Glucagon Inj) 1 mg STAT PRN IM 08/01/17 22:30 (D50w (Vial) Inj) 50 ml UNSCH PRN IV PUSH 08/01/17 22:30 (Glucagon Inj) 1 mg UNSCH PRN OTHER 08/01/17 22:30 08/03/17 17:39 (NS Flush) 2 ml UNSCH PRN IV FLUSH 08/01/17 22:30 (NS Flush) 2 ml BID IV FLUSH 08/02/17 09:00 08/08/17 08:38 (Heparin Inj) 5,000 units Q12H SQ 08/01/17 23:00 08/08/17 13:26 (Narcan Inj) 0.4 mg UNSCH PRN IV PUSH 08/01/17 22:30 (Marixa-Colace) 1 tab BID PO 08/02/17 09:00 08/08/17 08:31 (Milk Of Magnesia Liq) 30 ml Q12H PRN PO 08/01/17 22:30 (Senokot) 17.2 mg Q12H PRN PO 08/01/17 22:30 (Dulcolax Supp) 10 mg DAILY PRN RECTAL 08/01/17 22:30 (Lactulose Liq) 30 ml DAILY PRN PO 08/01/17 22:30 Piperacillin Sod/ Tazobactam Sod 50 ml @ 100 mls/hr Q6H IV 08/02/17 17:00 08/08/17 05:31 Sodium Chloride 1,000 ml @ 0 mls/hr Q0M PRN OTHER 08/02/17 17:09 (Heparin Inj) 8,000 units UNSCH PRN IV FLUSH 08/02/17 17:15 Sodium Chloride 1,000 ml @ 200 mls/hr Q5H PRN IV 08/02/17 17:09 Sodium Chloride 1,000 ml @ 0 mls/hr Q0M PRN OTHER 08/02/17 17:09 (Mannitol Inj) 12.5 gm UNSCH PRN IV 08/02/17 17:15 Albumin Human 100 ml @ 60 mls/hr UNSCH PRN IV 08/02/17 17:15 (NS Flush) 5 ml UNSCH PRN IV FLUSH 08/02/17 17:15 (Zofran Inj) 4 mg UNSCH PRN IV PUSH 08/02/17 17:15 (Tylenol) 650 mg UNSCH PRN PO 08/02/17 17:15 08/03/17 08:48 (Benadryl) 25 mg UNSCH PRN PO 08/02/17 17:15 (Nitrostat Sl) 0.4 mg UNSCH PRN SL 08/02/17 17:15 (Catapres) 0.1 mg UNSCH PRN PO 08/02/17 17:15 (Gelfoam 12 Mm/7 Mm Top) 1 foam UNSCH PRN TOP 08/02/17 17:15 08/08/17 11:52 (Habitrol 14 Mg Patch.24 Hr) 1 patch DAILY T-DERMAL 08/02/17 20:00 08/08/17 08:32 Miscellaneous Information 1 DAILY T-DERMAL 08/03/17 09:00 08/07/17 08:49 (NovoLIN R SUPPLEMENTAL SCALE) 1 ACHS SLIDING SCALE SQ 08/04/17 12:00 (Flagyl) 500 mg Q8HR PO 08/06/17 14:00 08/08/17 13:25 Physical Exam General Appearance: No Acute Distress, Comfortable Eyes Eye Exam: Pupils Equal Throat Throat Exam: Oral Mucosa [place] & Moist Pulmonary Resp Exam: Breath Sounds Equal, No Distress, Decreased Bases Cardiology CV Exam: Regular, Normal Sinus Rhythm Gastrointestinal/Abdomen GI Exam: Soft, Non-Tender, Bowel Sounds Present Extremeties Extremities Exam: Trace Edema Neurologic Neuro Exam: Alert, Awake, Oriented Psychiatric Psych Exam: Appropriate Responses Assessment/Plan Problem List: (1) ESRD (end stage renal disease) ICD Codes: N18.6 - End stage renal disease Status: Chronic Plan: Patient is going to do dialysis on Saturday, and Saturdays. Continue supportive care Monitor cultures, negative so far and afebrile. HD done earlier 2 L off has ? UTI culture neg on Zosyn WBC 10.2 off Neupogen (2) Neutropenia ICD Codes: D70.9 - Neutropenia, unspecified Status: Chronic Plan: Monitor blood count, seen by Hematology. (3) COPD (chronic obstructive pulmonary disease) ICD Codes: J44.9 - Chronic obstructive pulmonary disease, unspecified Status: Chronic Plan: History of lung cancer and continue to smoke cigarette, I have advised to stop smoking Problem Qualifiers (1) Neutropenia: Qualified Codes: D70.9 - Neutropenia, unspecified Oscar Jurado MD Aug 08, 2017 14:23
[2017-08-08] MEDS ORDERED: CEFU1TAB18 PO (16:09)
[2017-08-08] MEDS ORDERED: METR1TAB76 PO (16:09)
--- NOTE | 2017-08-08 16:22 | HHI.DS ---
Discharge Summary Admission Date Aug 05, 2017 at 13:53 Discharge Date: Aug 08, 2017 Admitting Diagnosis Neutropenia, possible Bacteremia (1) Normocytic anemia ICD Codes: D64.9 - Anemia, unspecified Status: Chronic (2) Hypotension ICD Codes: I95.9 - Hypotension Status: Acute (3) COPD (chronic obstructive pulmonary disease) ICD Codes: J44.9 - Chronic obstructive pulmonary disease, unspecified Status: Chronic (4) Colitis ICD Codes: K52.9 - Noninfective gastroenteritis and colitis, unspecified (5) ESRD (end stage renal disease) ICD Codes: N18.6 - End stage renal disease Status: Chronic (6) DM (diabetes mellitus) ICD Codes: E11.9 - Type 2 diabetes mellitus without complications Status: Acute (7) Chronic kidney disease ICD Codes: N18.9 - Chronic kidney disease, unspecified Status: Chronic (8) Sepsis ICD Codes: A41.9 - Sepsis, unspecified organism Status: Acute (9) Pneumonia, bacterial ICD Codes: J15.9 - Unspecified bacterial pneumonia Status: Acute Brief History 66 Y CF, LONG HISTORY OF COLITIS, RF NOW ON HD. PT HAS BEEN HOME BOUND, COMES TO MY OFFICE HOWEVER WITH HER DAUGHTER. PT CONTINUES TO SMOKE AND HAS RECURRENT BRONCHITIS. SHE HAS GENERALLY DECLINED AND WAS VERY WEAK. DAUGHTER HAS BEEN LOOKING FOR PLACEMENT FOR HER ALSO AND YESTERDAY WE WERE ORGANIZING A 3008 AND POSSIBLE SNF PLACEMENT. PT BECAME SOB AND WEAK AND DAUGHTER BROUGHT HER TO THE ER. PT FOUND WITH LOW ANC AND STARTED W RIGORS IN THE ER. I WAS THUS CALLED FOR ADMISSION. PT RECEIVED IV ABX AND SEPSIS WORKUP BEGUN IN ER. PT IS OBVIOUSLY WEAKER AND HAS A HARSH CONGESTED COUGH. CBC/BMP: 08/08/17 0550 08/08/17 0550 Significant Findings Laboratory Tests Test 08/06/17 01:33 08/06/17 14:33 08/06/17 20:50 08/07/17 06:55 Urine Color RED (YELLW/STRAW) Urine Turbidity HAZY (CLEAR) Urine Protein 100 mg/dL (NEG-TRACE) Urine Occult Blood LARGE (NEG) Urine Leukocyte Esterase MOD (NEG) Urine WBC 59 /hpf (0-5) Creatinine 4.93 MG/DL (0.50-1.00) 5.64 MG/DL (0.50-1.00) Estimat Glomerular Filtration Rate 9 ML/MIN (>89) 8 ML/MIN (>89) Red Blood Count 3.41 MIL/MM3 (4.00-5.30) Hemoglobin 10.3 GM/DL (11.6-15.3) Hematocrit 31.1 % (35.0-46.0) Band Neutrophils % 15 % (0-6) Monocytes % 15 % (0-8) Toxic Granulation 1+ (NORMAL) Toxic Vacuolation PRESENT (NONE SEEN) Dohle Bodies PRESENT (NONE SEEN) Blood Urea Nitrogen 22 MG/DL (7-18) Albumin 3.2 GM/DL (3.4-5.0) Alkaline Phosphatase 141 U/L (45-117) Test 08/08/17 05:50 Red Blood Count 3.63 MIL/MM3 (4.00-5.30) Hemoglobin 11.0 GM/DL (11.6-15.3) Hematocrit 33.3 % (35.0-46.0) Neutrophils (%) (Auto) 72.1 % (16.0-70.0) Lymphocytes (%) (Auto) 7.4 % (9.0-44.0) Monocytes (%) (Auto) 14.2 % (0.0-8.0) Eosinophils (%) (Auto) 5.5 % (0.0-4.0) Lymphocytes # (Auto) 0.8 TH/MM3 (1.0-4.8) Monocytes # (Auto) 1.4 TH/MM3 (0-0.9) Eosinophils # (Auto) 0.6 TH/MM3 (0-0.4) Monocytes % 15 % (0-8) Eosinophils % 5 % (0-4) Blood Urea Nitrogen 37 MG/DL (7-18) Creatinine 7.62 MG/DL (0.50-1.00) Random Glucose 61 MG/DL (74-106) Albumin 2.9 GM/DL (3.4-5.0) Potassium Level 5.3 MEQ/L (3.5-5.1) Estimat Glomerular Filtration Rate 5 ML/MIN (>89) Imaging Last [address] 08/07/17 0000 Signed Impressions: Service Date/Time: Monday, August 07, 2017 19:00 - CONCLUSION: 1. There is dense air space consolidation left lung with scattered infiltrates in the lungs and right pleural effusion. 2. Slight splenomegaly and the liver is not adequately characterized and possibility of hepatic vein or portal vein thrombosis is not excluded. Ivana Dumont MD Head CT 08/06/17 0000 Signed Impressions: Service Date/Time: Sunday, August 06, 2017 19:05 - CONCLUSION: 1. No acute intracranial abnormalities. No change from December 2016. Doug Sheriff MD Chest X-Ray 08/06/17 0000 Signed Impressions: Service Date/Time: Sunday, August 06, 2017 13:40 - CONCLUSION: 1. Large area of atelectasis and scarring at the left lung base unchanged from previous exam. Shaheed Sheets MD PE at Discharge GENERAL: SKIN: Warm and dry. HEAD: Atraumatic. Normocephalic. EYES: Pupils equal and round. No scleral icterus. No injection or drainage. ENT: No nasal bleeding or discharge. Mucous membranes pink and moist. NECK: Trachea midline. No JVD. CARDIOVASCULAR: Regular rate and rhythm. RESPIRATORY: No accessory muscle use. Clear to auscultation. Breath sounds equal bilaterally. GASTROINTESTINAL: Abdomen soft, non-tender, nondistended. Hepatic and splenic margins not palpable. MUSCULOSKELETAL: Extremities without clubbing, cyanosis, or edema. No obvious deformities. NEUROLOGICAL: Awake and alert. No obvious cranial nerve deficits. Motor grossly within normal limits. 3 out of 5 muscle strength in the arms and legs. Normal speech. PSYCHIATRIC: Appropriate mood and affect; insight and judgment normal. Hospital Course 66-year-old female admitted secondary to sepsis and pneumonia with neutropenia Sepsis Resolved uti- on abx per ID Neutropenia Neupogen provided Hematology following Follow CBC Continue neutropenic precautions HCAP Bacterial pneumonia Continue duo nebs Continue oxygen supplementation as needed check sputum cultures per ID Decreased mobility Physical decompensation Continue physical therapy Heparin for DVT prophylaxis COPD No exacerbation No change to baseline treatments Colitis Monitor for recurrence ON FLAGYL Diabetes mellitus type 2 Follow blood sugars Insulin sliding scale Patient had some episodes of hypoglycemia yesterday, decreased the insulin sliding scale to medium dose. Diabetic diet Chronic kidney disease End-stage renal disease Appears stable Follow renal function Nephrology following DVT prophylaxis Heparin Discharge Disposition: Discharge to SNF Pt Condition on Discharge: Stable Discharge Disposition: Discharge to SNF Discharge Instructions DIET: Follow Instructions for: As Tolerated, No Restrictions Activities you can perform: Regular-No Restrictions Follow up Referrals: Nephrology - [address] Jurado Oncology/Hematology - 2-3 Days with Angel Jurado MD PCP Follow-up - 1 Week New Medications: Cefuroxime (Ceftin) 250 Mg Tab 250 MG PO BID for pna for 7 Days, #14 TAB Metronidazole (Metronidazole) 500 Mg Tab 500 MG PO TID for Infection for 7 Days, TAB 0 Refills Changed Medications: Oxycodone (Oxycodone) 10 Mg Tab 10 MG PO Q6HR PRN for PAIN SCALE 6 TO 10, #90 TAB 0 Refills (Medication details modified) Continued Medications: Albuterol 18 GM Inh (Ventolin Hfa 18 GM Inh) 90 Mcg/Act Aer 2 PUFF INH Q4-6H PRN for SHORTNESS OF BREATH, #1 INHALER 0 Refills Albuterol 8.5 GM Inh (Proair Hfa 8.5 GM Inh) 90 Mcg/Act Aer 2 PUFF INH Q4-6H PRN for SHORTNESS OF BREATH, #1 INHALER 0 Refills 108 mcg/actuation Alprazolam (Xanax) 1 Mg Tab 1 MG PO BID PRN for ANXIETY, #60 TAB 5 Refills (This prescription has been renewed) Aspirin (Aspirin) 81 Mg Chew 81 MG CHEW DAILY, TAB 0 Refills B-Complex W/ C & Folic Acid (Dialyvite 800) 1 Tab Budesonide-Formoterol Inh (Symbicort Inh) 160-4.5 Mcg/Act Aero 2 PUFF INH Q12HR, #1 INHALER 0 Refills Bupropion HCl ER 24 HR (Bupropion HCl ER 24 HR) 150 Mg Tab 150 MG PO DAILY for Control Depression, TAB 0 Refills Calcium Acetate (Phosphate Bin (Calcium Acetate) 667 Mg Cap 667 MG PO TIDPC for dialysis, #90 CAP 3 Refills Calcium Carbonate (Antacid) (Tums) 500 Mg Chew 500 MG CHEW PRN for HEARTBURN, TAB 0 Refills Cholecalciferol (Vitamin D3) 2,000 Unit Cap 2000 UNITS PO DAILY for Nutritional Supplement, #30 BOTTLE 0 Refills Dextromethorphan-Guaifenesin (Mucinex DM) 30-600 Mg Tab 2 TAB PO BID PRN for CHEST CONGESTION AND/OR COUGH, TAB 0 Refills Docusate Sodium (Docusate Sodium) 100 Mg Cap 100 MG PO BID PRN for Prevent Constipation, #60 CAP 0 Refills Famotidine (Famotidine) 20 Mg Tab 20 MG PO DAILY, #30 TAB 0 Refills Fluoxetine (Fluoxetine) 20 Mg Tab 20 MG PO DAILY, #30 TAB 0 Refills Gabapentin (Gabapentin) 100 Mg Cap 100 MG PO BID, #60 CAP 0 Refills Lidocaine-Prilocaine Topical (Lidopril Topical) 2.5-2.5 % Cream 1 APPLIC TOPICAL BID PRN for Numbs skin, #1 TUBE 0 Refills Midodrine (Midodrine) 10 Mg Tab 10 MG PO TID for Control Low Blood Pressure, #90 TAB 0 Refills Nitroglycerin SL (Nitroglycerin SL) 0.4 Mg Subl 0.4 MG SL DIRECTED PRN for CHEST PAIN, #100 TAB.SL 0 Refills ONE TABLET UNDER THE TONGUE NEEDED FOR CHEST PAIN, MAY REPEAT EVERY FIVE MINUTES FOR A TOTAL OF 3 DOSES OR CALL 911 IF NO RELIEF Ondansetron (Zofran) 4 Mg Tab 4 MG PO Q6HR PRN for NAUSEA OR VOMITING, TAB 0 Refills Oxygen tank (Oxygen tank) 1 Ea Tank 2 LITER EDUARDO.CANULA HS for HYPOXEMIA PREVENTION, #2 CYLINDER Oxygen Concentrator Portable Gaseous 2 L/min via Nasal Cannula Continuous For 99 months Tiotropium Inh (Spiriva Handihaler) 18 Mcg Cap 18 MCG INH DAILY for COPD for 30 Days, CAP 0 Refills 1 capsule = 18 mcg Discontinued Medications: Lactulose Liq (Lactulose Liq) 10 Gm/15 Ml Soln 30 ML PO TID, ML 0 Refills Alli Watkins MD Aug 08, 2017 16:22
== END 2017-08-08 16:52 | DRG 871 ==
LOC: NEPE 18:15 → NEDA 22:14 → HCIN 08-02 00:17 → OBSVTOIN 08-05 13:53 → HCIN 08-06 11:56
PROVIDERS: ADMIT Family Medicine; ATTEND Family Medicine
PROC: 5A1D70Z Performance of Urinary Filtration, Intermittent, Less than 6 Hours Per Day (ICD-10-PCS; principal; 2017-08-03)
DX: A41.9 Sepsis, unspecified organism (principal); J15.9 Unspecified bacterial pneumonia; Y95 Nosocomial condition; I12.0 Hypertensive chronic kidney disease with stage 5 chronic kidney disease or end stage renal disease; N18.6 End stage renal disease; I95.9 Hypotension, unspecified; D70.8 Other neutropenia; E11.22 Type 2 diabetes mellitus with diabetic chronic kidney disease; E11.649 Type 2 diabetes mellitus with hypoglycemia without coma; Z79.4 Long term (current) use of insulin; N39.0 Urinary tract infection, site not specified; J44.9 Chronic obstructive pulmonary disease, unspecified; F17.210 Nicotine dependence, cigarettes, uncomplicated; R26.9 Unspecified abnormalities of gait and mobility; K59.03 Drug induced constipation; T40.2X5A Adverse effect of other opioids, initial encounter; D64.9 Anemia, unspecified; K52.9 Noninfective gastroenteritis and colitis, unspecified; Z99.2 Dependence on renal dialysis; I25.10 Atherosclerotic heart disease of native coronary artery without angina pectoris; K21.9 Gastro-esophageal reflux disease without esophagitis; Z85.118 Personal history of other malignant neoplasm of bronchus and lung
CPT/HCPCS: 70450; 71045; 71046; 71250; 76937; 80048; 80053; 80069; 80202; 81001; 82550; 82565; 82948; 83735; 83880; 84484; 85007; 85027; 85610; 85652; 85730; 86038; 86140; 86430; 87040; 87070; 87086; 87205; 87804; 90935; 93005; 94640; 94664; 96365; 96366; 96372; 96374; G0257; G0378; J1442; J1610; J1644; J2543; J3370; J7050

== ENCOUNTER 2017-08-20 10:41 | Inpatient (IN) | payer MEDICARE ==
[2017-08-20] VITALS (9 sets, daily range): BP systolic 154–181; BP diastolic 65–79; PULSE 67–100; RESP 20–32; TEMP 97.5–98.4; O2SAT 96–98
[~2017-08-20] VITALS: Ht 165.1 cm; Wt 61.5 kg
[~2017-08-20 10:41] MED LIST changes: -ASPI-516 CHEW; +ASPI-516 PO; +CEFU1TAB18 PO; -COMMODE 3-IN-11 MIS; -DIAL800T3; +DIAL800T3 PO; -GETGO ROLLING W1 MI1; -HOSP BED1; -LEVA250T14 PO; -METR-1 PO; +METR1TAB76 PO; +NITR1SUB3 SL; -PROM25TA10 PO; -VARE.5 PO; -WHEEMIS3
[2017-08-20] MEDS ORDERED: SODIUM CHLORIDE 0.9% FLUSH 10 ML FLUSH IVF PRN (11:15)
[2017-08-20] MEDS ORDERED: methylPREDNISolone SOD SUCC 125 MG/2 ML VIAL IV PUSH ONE (11:15)
[2017-08-20] MEDS: RESP: ALBUTEROL 2.5 MG/IPRATROPIUM 0.5 MG NEB (SCH) INH ×2 (11:18→11:19)
--- NOTE | 2017-08-20 11:18 | PD ---
HPI Chief Complaint: Respiratory Distress Time Seen by Provider: 10:57 Travel History International Travel<30 days: No Contact w/Intl Traveler<30days: No Traveled to known affect area: No History of Present Illness HPI 66-year-old female complains of coughing congestion chest pain and shortness of breath. Patient states that his symptoms started last night. Patient states the cough is productive. Patient states the pain is dull aching pain localized in the right chest. Patient states the pain is worse with deep inspiration. Patient states that the cough is constant. Patient states that she has shortness of breath. Patient has history of COPD. Patient is a smoker. Patient has history of normocytic anemia, chronic kidney disease, diabetes, recurrent colitis. Patient was admitted to [facility] August 05 and discharged August 08 with diagnosis diagnosis sepsis, pneumonia, physical decompensation. Patient also has history of end-stage renal disease on dialysis Saturday and Saturday weekly. 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 [facility] Past Medical History Hx Anticoagulant Therapy: Yes Arthritis: Yes Anxiety: Yes Depression: Yes Cancer: Yes (lung s/p lobectomy and XRT ) Cardiac Catheterization: Yes Cardiovascular Problems: Yes (CAD) Chemotherapy: No Chest Pain: Yes COPD: Yes Coronary Artery Disease: Yes Diabetes: Yes (diet controled) Patient Takes Glucophage: No Diminished Hearing: No Endocrine: Yes Gastrointestinal Disorders: Yes (CONSTIPATION, colitis ) GERD: Yes Genitourinary: Yes Hepatitis: Yes (PREVIOUS FOOD BORNE HEPATITIS INFECTION PER CAREGIVER) Hiatal Hernia: Yes Hypertension: Yes (NOW HYPOTENSION) Immune Disorder: No Implanted Vascular Access Dvce: Yes Musculoskeletal: Yes (OA) Neurologic: Yes (ANEURYSM) Psychiatric: No Reproductive: No Respiratory: Yes (END STAGE EMPHYSEMA) Immunizations Current: Yes Myocardial Infarction: Yes (AGE 50) Pneumonia: Yes Radiation Therapy: Yes (2014) Renal Failure: Yes (T, , SAT) Thyroid Disease: No Tetanus Vaccination: < 5 Years Influenza Vaccination: Yes : 3 Para: 3 Miscarriage: 0 : 0 Tubal Ligation: Yes Past Surgical History Abdominal Surgery: Yes (cholecystectomy) AICD: No Arteriovenous Shunt: Yes Body Medical Devices: brain stent capped Cardiac Surgery: Yes (cardiac cath) Cholecystectomy: Yes Ear Surgery: No Endocrine Surgery: No Eye Surgery: No Gynecologic Surgery: Yes Joint Replacement: Yes (R FEMUR REPAIR) Neurologic Surgery: Yes (brain anuerysm with stent (capped)) Oral Surgery: No Pacemaker: No Thoracic Surgery: Yes (WEDGE RESECTION FOR SQUAMOUS CELL CARCINOMA) Other Surgery: Yes Social History Alcohol Use: No Tobacco Use: Yes (1 PPD) Substance Use: No Allergies-Medications (Allergen,Severity, Reaction): Coded Allergies: morphine (Verified Allergy, Severe, RASH, 08/20/17) ciprofloxacin (Verified Adverse Reaction, Intermediate, NAUSEAS, 08/20/17) codeine (Verified Adverse Reaction, Intermediate, Vertigo, 08/20/17) Reported Meds & Prescriptions Reported Meds & Active Scripts Active Oxycodone (Oxycodone HCl) 10 Mg Tab 10 Mg PO Q6HR PRN Xanax (Alprazolam) 1 Mg Tab 1 Mg PO BID PRN Vitamin D3 (Cholecalciferol) 2,000 Unit Cap 2,000 Units PO DAILY Fluoxetine (Fluoxetine HCl) 20 Mg Tab 20 Mg PO DAILY Midodrine 10 Mg Tab 10 Mg PO TID Calcium Acetate (Calcium Acetate (Phosphate Bin) 667 Mg Cap 667 Mg PO TIDPC Spiriva Handihaler (Tiotropium Inh) 18 Mcg Cap 18 Mcg INH DAILY 30 Days 1 capsule = 18 mcg Reported Colace (Docusate Sodium) 100 Mg Capsule 200 Mg PO HS Guaifenesin Liq (Guaifenesin) 100 mg/5 ML Soln 200 Mg PO Q4H PRN Ipratropium Neb (Ipratropium [place]) 0.5 Mg/2.5 Ml Amp 0.5 Mg NEB Q6HR Albuterol Neb (Albuterol Sulfate) 2.5 Mg/3 Ml Neb 2.5 Mg NEB Q6HR PRN Breo Ellipta Inh (Fluticasone/Vilanterol) 100-25 Mcg/Act Inh 1 Puff INH DAILY Use daily at the same time. Rinse mouth after each use. Tylenol (Acetaminophen) 325 Mg Tab 650 Mg PO Q4H PRN Milk of Magnesia Liq (Magnesium Hydroxide) 400 Mg/5 Ml Susp 30 Ml PO HS PRN Nitroglycerin SL (Nitroglycerin) 0.4 Mg Subl 0.4 Mg SL DIRECTED PRN ONE TABLET UNDER THE TONGUE NEEDED FOR CHEST PAIN, MAY REPEAT EVERY FIVE MINUTES FOR A TOTAL OF 3 DOSES OR CALL 911 IF NO RELIEF Gabapentin 100 Mg Cap 100 Mg PO BID Bupropion HCl ER 24 HR (Bupropion HCl) 150 Mg Tab 150 Mg PO DAILY Proair Hfa 8.5 GM Inh (Albuterol Sulfate) 90 Mcg/Act Aer 2 Puff INH Q4HR PRN 108 mcg/actuation Lidopril Topical (Lidocaine-Prilocaine Topical) 2.5-2.5 % Cream 1 Applic TOPICAL TUTHSA PRN Apply to shunt site daily every Saturday, and Saturday 1hr prior to dialysis Zofran (Ondansetron HCl) 4 Mg Tab 4 Mg PO Q6HR PRN Dialyvite 800 (B-Complex W/ C & Folic Acid) 1 Tab 1 Tab PO DAILY Ventolin Hfa 18 GM Inh (Albuterol Sulfate) 90 Mcg/Act Aer 2 Puff INH Q4HR PRN Mucinex DM (Dextromethorphan-Guaifenesin) 30-600 Mg Tab 2 Tab PO Q12HR PRN Aspirin 81 Mg Chew 81 Mg PO DAILY Oxygen tank (Oxygen) 1 Ea Tank 2 Liter EDUARDO[employer] HS Oxygen Concentrator Portable Gaseous 2 L/min via Nasal Cannula Continuous For 99 months Review of Systems General / Constitutional: No: Fever Eyes: No: Visual changes HENT: No: Headaches Cardiovascular: Positive: Chest Pain or Discomfort Respiratory: Positive: Cough, Shortness of Breath Gastrointestinal: No: Abdominal Pain Genitourinary: No: Dysuria Musculoskeletal: No: Pain Skin: No Rash Neurologic: No: Weakness Psychiatric: No: Depression Endocrine: No: Polydipsia Hematologic/Lymphatic: No: Easy Bruising Physical Exam Narrative GENERAL: Well-nourished, well-developed patient. SKIN: Focused skin assessment warm/dry. HEAD: Normocephalic. EYES: No scleral icterus. No injection or drainage. NECK: Supple, trachea midline. No JVD or lymphadenopathy. CARDIOVASCULAR: Regular rate and rhythm without murmurs, gallops, or rubs. RESPIRATORY: Breath sounds equal bilaterally. No accessory muscle use. Patient has moderate expiratory wheezes bilaterally. Few rhonchi at the bases. GASTROINTESTINAL: Abdomen soft, non-tender, nondistended. MUSCULOSKELETAL: No cyanosis, or edema. BACK: Nontender without obvious deformity. No CVA tenderness. Neurologic exam normal. Data Data Last Documented VS Vital Signs Date Time Temp Pulse Resp B/P (MAP) Pulse Ox O2 Delivery O2 Flow Rate FiO2 08/20/17 14:57 83 20 154/71 (98) 98 Room Air 08/20/17 10:46 98.1 Orders Orders Electrocardiogram (08/20/17 11:09) Complete Blood Count With Diff (08/20/17 11:09) Comprehensive Metabolic Panel (08/20/17 11:09) Creatine Kinase (Cpk) (08/20/17 11:09) Troponin I (08/20/17 11:09) B-Type Natriuretic Peptide (08/20/17 11:09) Prothrombin Time / Inr (Pt) (08/20/17 11:09) Act Partial Throm Time (Ptt) (08/20/17 11:09) Blood Culture (08/20/17 11:09) Urinalysis - C+S If Indicated (08/20/17 11:09) Thyroid Stimulating Hormone (08/20/17 11:09) Influenzae A/B Antigen (08/20/17 11:09) Chest, Single Ap (08/20/17 11:09) Iv Access Insert/Monitor (08/20/17 11:09) Ecg Monitoring (08/20/17 11:09) Oximetry (08/20/17 11:09) Sodium Chloride 0.9% Flush (Ns Flush) (08/20/17 11:15) Methylprednisolone So Succ Inj (Solumedr (08/20/17 11:15) Albuterol-Ipratropium Neb (Duoneb Neb) (08/20/17 11:15) Ceftriaxone Inj (Rocephin Inj) (08/20/17 13:15) Azithromycin (Zithromax) (08/21/17 09:00) Albuterol-Ipratropium Neb (Duoneb Neb) (08/20/17 13:15) Admit Order (Ed Use Only) (08/20/17 15:19) Labs Laboratory Tests Test 08/20/17 11:20 White Blood Count 3.3 TH/MM3 Red Blood Count 3.70 MIL/MM3 Hemoglobin 11.2 GM/DL Hematocrit 33.9 % Mean Corpuscular Volume 91.5 FL Mean Corpuscular Hemoglobin 30.2 PG Mean Corpuscular Hemoglobin Concent 33.1 % Red Cell Distribution Width 16.4 % Platelet Count 375 TH/MM3 Mean Platelet Volume 7.9 FL Neutrophils (%) (Auto) 54.5 % Lymphocytes (%) (Auto) 11.5 % Monocytes (%) (Auto) 28.5 % Eosinophils (%) (Auto) 4.3 % Basophils (%) (Auto) 1.2 % Neutrophils # (Auto) 1.8 TH/MM3 Lymphocytes # (Auto) 0.4 TH/MM3 Monocytes # (Auto) 0.9 TH/MM3 Eosinophils # (Auto) 0.1 TH/MM3 Basophils # (Auto) 0.0 TH/MM3 CBC Comment DIFF FINAL Differential Comment Prothrombin Time 10.9 SEC Prothromb Time International Ratio 1.1 RATIO Activated Partial Thromboplast Time 21.2 SEC Blood Urea Nitrogen 58 MG/DL Creatinine 7.83 MG/DL Random Glucose 148 MG/DL Total Protein 8.5 GM/DL Albumin 3.0 GM/DL Calcium Level 9.0 MG/DL Alkaline Phosphatase 100 U/L Aspartate Amino Transf (AST/SGOT) 50 U/L Alanine Aminotransferase (ALT/SGPT) 13 U/L Total Bilirubin 0.5 MG/DL Sodium Level 135 MEQ/L Potassium Level 5.4 MEQ/L Chloride Level 101 MEQ/L Carbon Dioxide Level 23.7 MEQ/L Anion Gap 10 MEQ/L Estimat Glomerular Filtration Rate 5 ML/MIN Total Creatine Kinase 106 U/L Troponin I LESS THAN 0.02 NG/ML B-Type Natriuretic Peptide 395 PG/ML Thyroid Stimulating Hormone 3rd Gen 1.670 uIU/ML MDM Medical Decision Making Medical Screen Exam Complete: Yes Emergency Medical Condition: Yes Interpretation(s) Last Impressions Chest X-Ray 08/20/17 1109 Signed Impressions: Service Date/Time: Sunday, August 20, 2017 11:45 - CONCLUSION: Interstitial vascular prominence which may represent early congestion. No evidence of consolidating airspace disease. Stable left lung scarring. Les Espinosa MD 12:45 PM. CBC WBC 3.3. Hemoglobin 11.2 hematocrit 33.9. Normal differential. Sodium 135. Potassium 5.4. Specimen with moderate hemolysis. BUN 58. Creatinine 7.83. GFR 5. Cardiac enzymes are normal. BNP 395. Differential Diagnosis Differential diagnoses include acute exacerbation of COPD, bronchitis, pneumonia , angina, [place], PE, pneumothorax. Narrative Course 66-year-old female with productive cough, wheezing, shortness of breath, right- sided chest pain. Albuterol with Atrovent unit dose treatment 3. Solu-Medrol 125 mg IV. Rocephin 1 g IV. Zithromax 500 mg p.o. 1430 8 PM. Reexamination patient still has a lot of wheezing and shortness of breath. Patient will be admitted for acute exacerbation of COPD. Diagnosis Primary Impression: COPD with acute exacerbation Hill Chen MD Aug 20, 2017 11:18
[2017-08-20] MEDS ORDERED: GUAI100S7 PO (11:26)
[2017-08-20] MEDS ORDERED: TYLE325T PO (11:26)
[2017-08-20] MEDS ORDERED: MILKSUS PO (11:26)
[2017-08-20] MEDS ORDERED: COLA100C5 PO (11:26)
[2017-08-20] MEDS ORDERED: IPRA0.02 NEB (11:26)
[2017-08-20] MEDS ORDERED: ALBU0.08 NEB (11:26)
[2017-08-20] MEDS ORDERED: FLUT1INH INH (11:26)
[2017-08-20 11:46] LABS: AUTOMATED NEUTROPHIL # 1.8 TH/MM3 (1.8-7.7); BASOPHIL % 1.2 % (0.0-2.0); EOSINOPHIL # 0.1 TH/MM3 (0-0.4); EOSINOPHIL % 4.3 % (0.0-4.0); HEMATOCRIT 33.9 % (35.0-46.0); HEMOGLOBIN 11.2 GM/DL (11.6-15.3); LYMPH % 11.5 % (9.0-44.0); LYMPHOCYTE # 0.4 TH/MM3 (1.0-4.8); MEAN CELL VOLUME 91.5 FL (80.0-100.0); MEAN CORPUSCULAR HEMOGLOBIN 30.2 PG (27.0-34.0); MEAN CORPUSCULAR HGB CONC 33.1 % (32.0-36.0); MEAN PLATELET VOLUME 7.9 FL (7.0-11.0); MONO % 28.5 % (0.0-8.0); MONOCYTE # 0.9 TH/MM3 (0-0.9); NEUT % 54.5 % (16.0-70.0); PLATELET COUNT 375 TH/MM3 (150-450); RED CELL DISTRIBUTION WIDTH 16.4 % (11.6-17.2); WHITE BLOOD COUNT 3.3 TH/MM3 (4.0-11.0)
[2017-08-20 11:56] LABS: INTERNATIONAL NORMALIZED RATIO 1.1 RATIO; PROTHROMBIN TIME - PATIENT 10.9 SEC (9.8-11.6)
[2017-08-20 12:10] LABS: ALKALINE PHOSPHATASE 100 U/L (45-117); ALT (GPT) 13 U/L (10-53); AST (GOT) 50 U/L (15-37); BICARBONATE 23.7 MEQ/L (21.0-32.0); BLOOD UREA NITROGEN 58 MG/DL (7-18); CHLORIDE 101 MEQ/L (98-107); CREATININE 7.83 MG/DL (0.50-1.00); GLOMERULAR FILTRATION RATE 5 ML/MIN (>89); GLUCOSE,RANDOM 148 MG/DL (74-106); SODIUM (NA) 135 MEQ/L (136-145); TOTAL BILIRUBIN ADULT 0.5 MG/DL (0.2-1.0); TOTAL PROTEIN 8.5 GM/DL (6.4-8.2); TROPONIN I LESS THAN 0.02 NG/ML (0.02-0.05)
--- NOTE | 2017-08-20 12:13 | RADRPT ---
EXAM DATE/TIME: 08/20/2017 11:45 [facility] COMPARISON: CHEST SINGLE AP, August 06, 2017, 13:40. INDICATIONS : Short of breath. MEDICAL HISTORY : Myocardial infarction. Chronic obstructive pulmonary disease. Emphysema. Renal failure. Diabetes. Hypotension. Coronary artery disease. SURGICAL HISTORY : Cardiac cath. Lobectomy. ENCOUNTER: Initial ACUITY: 1 day PAIN SCORE: 0/10 LOCATION: Bilateral chest FINDINGS: Mild interstitial vascular prominence slightly greater than seen on the previous study is noted. Pleural parenchymal scarring in the left lung base is stable. There is no evidence of acute consolidating airspace disease. Heart is mildly enlarged. CONCLUSION: Interstitial vascular prominence which may represent early congestion. No evidence of consolidating airspace disease. Stable left lung scarring. Les Espinosa MD on August 20, 2017 at 12:09 Board Certified Radiologist. This report was verified electronically.
[2017-08-20] MEDS ORDERED: RESP: ALBUTEROL 2.5 MG/IPRATROPIUM 0.5 MG NEB (SCH) INH ONE (13:15)
[2017-08-20] MEDS ORDERED: cefTRIAXone INJ 1,000 MG in SODIUM CHLORIDE 0.9% INJ 100 ML IV ONE (13:15)
[2017-08-20] MEDS ORDERED: IOHEXOL 350 MG/ML 10 ML VIAL (for RAD DIAG) IVCONTRAST ONE (15:21)
[2017-08-20] MEDS ORDERED: IOHEXOL 350 MG/ML 100 ML BTL (for Cath Lab) OTHER ONE (15:21)
[2017-08-20] MEDS ORDERED: guaiFENesin SOLUTION 200 MG/10 ML CUP PO PRN (15:45)
--- NOTE | 2017-08-20 15:54 | HHI.HP ---
History of Present Illness Primary Care Physician Alli Watkins MD Admission Diagnosis Acute exacerbation COPD Diagnoses: Past Family Social History Allergies: Coded Allergies: morphine (Verified Allergy, Severe, RASH, 08/20/17) ciprofloxacin (Verified Adverse Reaction, Intermediate, NAUSEAS, 08/20/17) codeine (Verified Adverse Reaction, Intermediate, Vertigo, 08/20/17) Physical Exam Vital Signs Vital Signs Date Time Temp Pulse Resp B/P (MAP) Pulse Ox O2 Delivery O2 Flow Rate FiO2 08/20/17 14:57 83 20 154/71 (98) 98 Room Air 08/20/17 10:50 30 98 Room Air 08/20/17 10:50 98 Room Air 08/20/17 10:46 98.1 80 32 179/75 (109) 98 Physical Exam GENERAL: This is a well-nourished, well-developed patient, in no apparent distress. SKIN: No rashes, ecchymoses or lesions. Cool and dry. HEAD: Atraumatic. Normocephalic. No temporal or scalp tenderness. EYES: Pupils equal round and reactive. Extraocular motions intact. No scleral icterus. No injection or drainage. ENT: Nose without bleeding, purulent drainage or septal hematoma. Throat without erythema, tonsillar hypertrophy or exudate. Uvula midline. Airway patent. NECK: Trachea midline. No JVD or lymphadenopathy. Supple, nontender, no meningeal signs. CARDIOVASCULAR: Regular rate and rhythm without murmurs, gallops, or rubs. RESPIRATORY: Clear to auscultation. Breath sounds equal bilaterally. No wheezes , rales, or rhonchi. GASTROINTESTINAL: Abdomen soft, non-tender, nondistended. No hepato-splenomegaly , or palpable masses. No guarding. MUSCULOSKELETAL: Extremities without clubbing, cyanosis, or edema. No joint tenderness, effusion, or edema noted. No calf tenderness. Negative Homans sign bilaterally. NEUROLOGICAL: Awake and alert. Cranial nerves II through XII intact. Motor and sensory grossly within normal limits. Five out of 5 muscle strength in all muscle groups. Normal speech. Laboratory Laboratory Tests Test 08/20/17 11:20 White Blood Count 3.3 Red Blood Count 3.70 Hemoglobin 11.2 Hematocrit 33.9 Mean Corpuscular Volume 91.5 Mean Corpuscular Hemoglobin 30.2 Mean Corpuscular Hemoglobin Concent 33.1 Red Cell Distribution Width 16.4 Platelet Count 375 Mean Platelet Volume 7.9 Neutrophils (%) (Auto) 54.5 Lymphocytes (%) (Auto) 11.5 Monocytes (%) (Auto) 28.5 Eosinophils (%) (Auto) 4.3 Basophils (%) (Auto) 1.2 Neutrophils # (Auto) 1.8 Lymphocytes # (Auto) 0.4 Monocytes # (Auto) 0.9 Eosinophils # (Auto) 0.1 Basophils # (Auto) 0.0 CBC Comment DIFF FINAL Differential Comment Prothrombin Time 10.9 Prothromb Time International Ratio 1.1 Activated Partial Thromboplast Time 21.2 Blood Urea Nitrogen 58 Creatinine 7.83 Random Glucose 148 Total Protein 8.5 Albumin 3.0 Calcium Level 9.0 Alkaline Phosphatase 100 Aspartate Amino Transf (AST/SGOT) 50 Alanine Aminotransferase (ALT/SGPT) 13 Total Bilirubin 0.5 Sodium Level 135 Potassium Level 5.4 Chloride Level 101 Carbon Dioxide Level 23.7 Anion Gap 10 Estimat Glomerular Filtration Rate 5 Total Creatine Kinase 106 Troponin I LESS THAN 0.02 B-Type Natriuretic Peptide 395 Thyroid Stimulating Hormone 3rd Gen 1.670 Date/Time Source Procedure Growth Status 08/20/17 11:20 Blood Peripheral Aerobic Blood Culture Pending Received 08/20/17 11:20 Blood Peripheral Anaerobic Blood Culture Pending Received 08/20/17 11:20 Nasal Washing Influenza Types A,B Antigen (LIV) - Final NEGATIVE FOR FLU A AND B ANTIGEN.... Complete Result Diagram: 08/20/17 1120 08/20/17 1120 Caprini VTE Risk Assessment Caprini VTE Risk Assessment: Mod/High Risk (score >= 2) VTE Pharm Contraindication: Caprini Risk Assessment Model Point Value = 1 Point Value = 2 Point Value = 3 Point Value = 5 Age 41-60 Minor surgery BMI > 25 kg/m2 Swollen legs Varicose veins or History of unexplained or recurrent spontaneous Oral contraceptives or hormone replacement Sepsis (< 1 month) Serious lung disease, including pneumonia (< 1 month) Abnormal pulmonary function Acute myocardial infarction Congestive heart failure (< 1 month) History of inflammatory bowel disease Medical patient at bed rest Age 61-74 Arthroscopic surgery Major open surgery (> 45 min) Laparoscopic surgery (> 45 min) Malignancy Confined to bed (> 72 hours) Immobilizing plaster cast Central venous access Age >= 75 History of VTE Family history of VTE Factor V Leiden Prothrombin [id number] Lupus anticoagulant Anticardiolipin antibodies Elevated serum homocysteine Heparin-induced thrombocytopenia Other congenital or acquired thrombophilia Stroke (< 1 month) Elective arthroplasty Hip, pelvis, or leg fracture Acute spinal cord injury (< 1 month) Prophylaxis Regimen Total Risk Factor Score Risk Level Prophylaxis Regimen 0-1 Low Early ambulation 2 Moderate Order ONE of the following: *Sequential Compression Device (SCD) *Heparin 5000 units SQ BID 3-4 Higher Order ONE of the following medications: *Heparin 5000 units SQ TID *Enoxaparin/Lovenox 40 mg SQ daily (WT < 150 kg, CrCl > 30 mL/min) *Enoxaparin/Lovenox 30 mg SQ daily (WT < 150 kg, CrCl > 10-29 mL/min) *Enoxaparin/Lovenox 30 mg SQ BID (WT < 150 kg, CrCl > 30 mL/min) AND/OR *Sequential Compression Device (SCD) 5 or more Highest Order ONE of the following medications: *Heparin 5000 units SQ TID (Preferred with Epidurals) *Enoxaparin/Lovenox 40 mg SQ daily (WT < 150 kg, CrCl > 30 mL/min) *Enoxaparin/Lovenox 30 mg SQ daily (WT < 150 kg, CrCl > 10-29 mL/min) *Enoxaparin/Lovenox 30 mg SQ BID (WT < 150 kg, CrCl > 30 mL/min) AND *Sequential Compression Device (SCD) Alli Watikns MD Aug 20, 2017 15:54
[2017-08-20] MEDS ORDERED: ACETAMINOPHEN 325 MG TAB PO PRN (16:00)
[2017-08-20] MEDS ORDERED: BISACODYL 10 MG SUPP RECTAL PRN (16:00)
[2017-08-20] MEDS ORDERED: SODIUM CHLORIDE 0.9% FLUSH 10 ML FLUSH IV FLUSH PRN ×2 (16:00→19:00)
[2017-08-20] MEDS ORDERED: ONDANSETRON HCL 4 MG/2 ML VIAL IVP PRN (16:00)
[2017-08-20] MEDS ORDERED: LACTULOSE SYRUP 20 GM/30 ML CUP PO PRN (16:00)
[2017-08-20] MEDS ORDERED: SENNOSIDES 8.6 MG TAB PO PRN (16:00)
[2017-08-20] MEDS ORDERED: NALOXONE HCL 0.4 MG/ML AMP IV PUSH PRN (16:00)
[2017-08-20] MEDS ORDERED: MAGNESIUM HYDROXIDE SUSP 30 ML CUP PO PRN (16:00)
[2017-08-20] MEDS: PANTOPRAZOLE SODIUM 40 MG VIAL IV PUSH SCH (17:01)
[2017-08-20] MEDS: cloNIDine HCL 0.1 MG TAB PO PRN (17:02)
[2017-08-20] MEDS: HEPARIN SODIUM - SQ 10,000 UNITS/ML VIAL SQ SCH (17:02)
[2017-08-20] MEDS: RESP: ALBUTEROL 2.5 MG/IPRATROPIUM 0.5 MG NEB (SCH) NEB ×2 (17:16→21:16)
[2017-08-20] MEDS ORDERED: SODIUM CHLOR 0.9% 1000 ML INJ 1,000 ML OTHER PRN ×2 (18:51)
[2017-08-20] MEDS ORDERED: SODIUM CHLOR 0.9% 1000 ML INJ 1,000 ML IV PRN (18:51)
[2017-08-20] MEDS: methylPREDNISolone SOD SUCC 125 MG/2 ML VIAL IV PUSH SCH (18:57)
[2017-08-20] MEDS: MIDODRINE 5 MG TAB PO SCH (18:57)
[2017-08-20] MEDS: CALCIUM ACETATE 667 MG CAP PO SCH (18:58)
--- NOTE | 2017-08-20 18:58 | PD.CONS ---
HPI Service Nephrology Consult Requested By Dr. Watkins Reason for Consult ESRD Primary Care Physician Alli Watkins MD History of Present Illness Patient is a 66-year-old white female with history of COPD, lung cancer status post wedge resection left lung, ESRD, chronic cigarette smoker who had been admitted with exacerbation of COPD, today was her dialysis today but she could not make it to dialysis Center as she was feeling weak and fatigued tired short of breath. She goes to dialysis on Saturday, and Saturdays Past Family Social History Allergies: Coded Allergies: morphine (Verified Allergy, Severe, RASH, 08/20/17) ciprofloxacin (Verified Adverse Reaction, Intermediate, NAUSEAS, 08/20/17) codeine (Verified Adverse Reaction, Intermediate, Vertigo, 08/20/17) Past Medical History COPD CHF Hypertension Lung cancer Smoking End-stage renal disease Diabetes Past Surgical History AV fistula left arm lung wedge resection Endoscopy Rt femur repair Cholecystectomy Brain Aneurysm heart cath ankle repair knee surgery Reported Medications Reported Meds & Active Scripts Active Oxycodone (Oxycodone HCl) 10 Mg Tab 10 Mg PO Q6HR PRN Xanax (Alprazolam) 1 Mg Tab 1 Mg PO BID PRN Vitamin D3 (Cholecalciferol) 2,000 Unit Cap 2,000 Units PO DAILY Fluoxetine (Fluoxetine HCl) 20 Mg Tab 20 Mg PO DAILY Midodrine 10 Mg Tab 10 Mg PO TID Calcium Acetate (Calcium Acetate (Phosphate Bin) 667 Mg Cap 667 Mg PO TIDPC Spiriva Handihaler (Tiotropium Inh) 18 Mcg Cap 18 Mcg INH DAILY 30 Days 1 capsule = 18 mcg Reported Colace (Docusate Sodium) 100 Mg Capsule 200 Mg PO HS Guaifenesin Liq (Guaifenesin) 100 mg/5 ML Soln 200 Mg PO Q4H PRN Ipratropium Neb (Ipratropium [place]) 0.5 Mg/2.5 Ml Amp 0.5 Mg NEB Q6HR Albuterol Neb (Albuterol Sulfate) 2.5 Mg/3 Ml Neb 2.5 Mg NEB Q6HR PRN Breo Ellipta Inh (Fluticasone/Vilanterol) 100-25 Mcg/Act Inh 1 Puff INH DAILY Use daily at the same time. Rinse mouth after each use. Tylenol (Acetaminophen) 325 Mg Tab 650 Mg PO Q4H PRN Milk of Magnesia Liq (Magnesium Hydroxide) 400 Mg/5 Ml Susp 30 Ml PO HS PRN Nitroglycerin SL (Nitroglycerin) 0.4 Mg Subl 0.4 Mg SL DIRECTED PRN ONE TABLET UNDER THE TONGUE NEEDED FOR CHEST PAIN, MAY REPEAT EVERY FIVE MINUTES FOR A TOTAL OF 3 DOSES OR CALL 911 IF NO RELIEF Gabapentin 100 Mg Cap 100 Mg PO BID Bupropion HCl ER 24 HR (Bupropion HCl) 150 Mg Tab 150 Mg PO DAILY Proair Hfa 8.5 GM Inh (Albuterol Sulfate) 90 Mcg/Act Aer 2 Puff INH Q4HR PRN 108 mcg/actuation Lidopril Topical (Lidocaine-Prilocaine Topical) 2.5-2.5 % Cream 1 Applic TOPICAL TUTHSA PRN Apply to shunt site daily every Saturday, and Saturday 1hr prior to dialysis Zofran (Ondansetron HCl) 4 Mg Tab 4 Mg PO Q6HR PRN Dialyvite 800 (B-Complex W/ C & Folic Acid) 1 Tab 1 Tab PO DAILY Ventolin Hfa 18 GM Inh (Albuterol Sulfate) 90 Mcg/Act Aer 2 Puff INH Q4HR PRN Mucinex DM (Dextromethorphan-Guaifenesin) 30-600 Mg Tab 2 Tab PO Q12HR PRN Aspirin 81 Mg Chew 81 Mg PO DAILY Oxygen tank (Oxygen) 1 Ea Tank 2 Liter EDUARDO.CANULA HS Oxygen Concentrator Portable Gaseous 2 L/min via Nasal Cannula Continuous For 99 months Active Ordered Medications Current Medications Medications (Trade) Dose Ordered Sig/Calros Route Start Time Stop Time Status Last Admin (NS Flush) 2 ml UNSCH PRN IVF 08/20/17 11:15 (Zithromax) 500 mg DAILY PO 08/21/17 09:00 (Xanax) 1 mg BID PRN PO 08/20/17 15:45 (Wellbutrin Xl 24 Hr) 150 mg DAILY PO 08/21/17 09:00 (Phoslo) 667 mg TIDPC PO 08/20/17 18:30 (Colace) 200 mg HS PO 08/20/17 21:00 (PROzac) 20 mg DAILY PO 08/21/17 09:00 (Neurontin) 100 mg BID PO 08/20/17 21:00 (Robitussin Liq) 200 mg Q4H PRN PO 08/20/17 15:45 (Proamatine) 10 mg TID PO 08/20/17 18:00 (Roxicodone) 10 mg Q6HR PRN PO 08/20/17 15:45 08/20/17 17:02 (NS Flush) 2 ml UNSCH PRN IV FLUSH 08/20/17 16:00 (NS Flush) 2 ml BID IV FLUSH 08/20/17 21:00 (Tylenol) 650 mg Q4H PRN PO 08/20/17 16:00 (Zofran Inj) 4 mg Q6H PRN IVP 08/20/17 16:00 (Heparin Inj) 5,000 units Q12H SQ 08/20/17 16:00 08/20/17 17:02 (Narcan Inj) 0.4 mg UNSCH PRN IV PUSH 08/20/17 16:00 (Marixa-Colace) 1 tab BID PO 08/20/17 21:00 (Milk Of Magnesia Liq) 30 ml Q12H PRN PO 08/20/17 16:00 (Senokot) 17.2 mg Q12H PRN PO 08/20/17 16:00 (Dulcolax Supp) 10 mg DAILY PRN RECTAL 08/20/17 16:00 (Lactulose Liq) 30 ml DAILY PRN PO 08/20/17 16:00 (Duoneb Neb) 1 ampule QID NEB NEB 08/20/17 16:00 08/20/17 17:16 (Catapres) 0.1 mg Q6H PRN PO 08/20/17 16:00 08/20/17 17:02 (SoluMEDROL INJ) 80 mg Q6HR IV PUSH 08/20/17 18:00 (Protonix Inj) 40 mg Q24H IV PUSH 08/20/17 16:00 08/20/17 17:01 Family History noncontributory Social History History of smoking Physical Exam Vital Signs Vital Signs Date Time Temp Pulse Resp B/P (MAP) Pulse Ox O2 Delivery O2 Flow Rate FiO2 08/20/17 18:22 98 08/20/17 18:00 08/20/17 17:32 100 20 156/65 (95) 98 Room Air 08/20/17 16:52 81 20 177/79 (111) 98 Room Air 08/20/17 14:57 83 20 154/71 (98) 98 Room Air 08/20/17 10:50 30 98 Room Air 08/20/17 10:50 98 Room Air 08/20/17 10:46 98.1 80 32 179/75 (109) 98 Physical Exam GENERAL: Well-nourished, well-developed patient. SKIN: Warm and dry. HEAD: Normocephalic. EYES: No scleral icterus. No injection or drainage. NECK: Supple, trachea midline. No JVD or lymphadenopathy. CARDIOVASCULAR: Regular rate and rhythm without murmurs, gallops, or rubs. RESPIRATORY: Breath sounds diminished at bases, Rhonchi, wheeze positive GASTROINTESTINAL: Abdomen soft, non-tender, nondistended. EXTREMITIES: No cyanosis, or edema. NEUROLOGICAL: Awake, alert, and oriented x 3. Non-focal. Laboratory Laboratory Tests Test 08/20/17 11:20 White Blood Count 3.3 Red Blood Count 3.70 Hemoglobin 11.2 Hematocrit 33.9 Mean Corpuscular Volume 91.5 Mean Corpuscular Hemoglobin 30.2 Mean Corpuscular Hemoglobin Concent 33.1 Red Cell Distribution Width 16.4 Platelet Count 375 Mean Platelet Volume 7.9 Neutrophils (%) (Auto) 54.5 Lymphocytes (%) (Auto) 11.5 Monocytes (%) (Auto) 28.5 Eosinophils (%) (Auto) 4.3 Basophils (%) (Auto) 1.2 Neutrophils # (Auto) 1.8 Lymphocytes # (Auto) 0.4 Monocytes # (Auto) 0.9 Eosinophils # (Auto) 0.1 Basophils # (Auto) 0.0 CBC Comment DIFF FINAL Differential Comment Prothrombin Time 10.9 Prothromb Time International Ratio 1.1 Activated Partial Thromboplast Time 21.2 Blood Urea Nitrogen 58 Creatinine 7.83 Random Glucose 148 Total Protein 8.5 Albumin 3.0 Calcium Level 9.0 Alkaline Phosphatase 100 Aspartate Amino Transf (AST/SGOT) 50 Alanine Aminotransferase (ALT/SGPT) 13 Total Bilirubin 0.5 Sodium Level 135 Potassium Level 5.4 Chloride Level 101 Carbon Dioxide Level 23.7 Anion Gap 10 Estimat Glomerular Filtration Rate 5 Total Creatine Kinase 106 Troponin I LESS THAN 0.02 B-Type Natriuretic Peptide 395 Thyroid Stimulating Hormone 3rd Gen 1.670 Date/Time Source Procedure Growth Status 08/20/17 11:20 Blood Peripheral Aerobic Blood Culture Pending Received 08/20/17 11:20 Blood Peripheral Anaerobic Blood Culture Pending Received 08/20/17 11:20 Nasal Washing Influenza Types A,B Antigen (LIV) - Final NEGATIVE FOR FLU A AND B ANTIGEN.... Complete Result Diagram: 08/20/17 1120 08/20/17 1120 Imaging Last Impressions Chest X-Ray 08/20/17 1109 Signed Impressions: Service Date/Time: Sunday, August 20, 2017 11:45 - CONCLUSION: Interstitial vascular prominence which may represent early congestion. No evidence of consolidating airspace disease. Stable left lung scarring. Les Espinosa MD Assessment and Plan Problem List: (1) ESRD (end stage renal disease) ICD Codes: N18.6 - End stage renal disease Status: Chronic Plan: Hemodialysis planned for the morning Give Kayexalate Continue with hemodialysis as outlined at her dialysis (2) COPD with acute exacerbation ICD Codes: J44.1 - Chronic obstructive pulmonary disease with (acute) exacerbation Status: Acute Plan: History of smoking (3) DM (diabetes mellitus) ICD Codes: E11.9 - Type 2 diabetes mellitus without complications Status: Acute Plan: Monitor blood glucose (4) Hyperkalemia ICD Codes: E87.5 - Hyperkalemia Plan: give Zenayexalate Oscar Jurado MD Aug 20, 2017 18:58
[2017-08-20] MEDS ORDERED: cloNIDine HCL 0.1 MG TAB PO PRN (19:00)
[2017-08-20] MEDS ORDERED: HEPARIN SODIUM - IV 10,000 UNITS/10 ML VIAL IV FLUSH PRN (19:00)
[2017-08-20] MEDS ORDERED: diphenhydrAMINE HCL 25 MG CAP PO PRN (19:00)
[2017-08-20] MEDS ORDERED: ONDANSETRON HCL 4 MG/2 ML VIAL IV PUSH PRN (19:00)
[2017-08-20] MEDS ORDERED: ALBUMIN 25% INJ 100 ML IV PRN (19:00)
[2017-08-20] MEDS ORDERED: NITROGLYCERIN 0.4 MG SL 25 TABS/BTL SL PRN (19:00)
[2017-08-20] MEDS ORDERED: MANNITOL 12.5 GM/50 ML VIAL IV PRN (19:00)
[2017-08-20] MEDS ORDERED: SODIUM POLYSTYRENE SULFONATE SUSP 15 GM/60 ML CUP PO ONE (19:00)
[2017-08-20] MEDS ORDERED: SODIUM CHLORIDE 0.9% FLUSH 10 ML FLUSH IV FLUSH SCH (21:00)
[2017-08-20] MEDS: DOCUSATE SODIUM 50 MG/SENNA 8.6 MG TAB PO SCH (21:00)
[2017-08-20] MEDS: DOCUSATE SODIUM 100 MG CAP PO SCH (21:48)
[2017-08-20] MEDS: GABAPENTIN 100 MG CAP PO SCH (21:48)
[2017-08-20] MEDS: ALPRAZolam 1 MG TAB PO PRN (21:56)
[2017-08-21] VITALS (15 sets, daily range): BP systolic 123–155; BP diastolic 58–80; PULSE 69–140; RESP 16–22; TEMP 97.4–98.4; O2SAT 94–98
[2017-08-21] MEDS: methylPREDNISolone SOD SUCC 125 MG/2 ML VIAL IV PUSH SCH ×5 (05:50→23:29)
[2017-08-21] MEDS: HEPARIN SODIUM - SQ 10,000 UNITS/ML VIAL SQ SCH ×2 (05:50→18:34)
[2017-08-21] MEDS: RESP: ALBUTEROL 2.5 MG/IPRATROPIUM 0.5 MG NEB (SCH) NEB ×4 (07:35→19:25)
[2017-08-21] MEDS: DOCUSATE SODIUM 50 MG/SENNA 8.6 MG TAB PO SCH ×2 (09:00→20:49)
[2017-08-21] MEDS: MIDODRINE 5 MG TAB PO SCH ×3 (09:00→18:00)
[2017-08-21] MEDS: CALCIUM ACETATE 667 MG CAP PO SCH ×3 (09:30→18:22)
--- NOTE | 2017-08-21 10:01 | MH ---
cc: Alli Watkins MD DATE OF ADMISSION: 08/20/2017 CHIEF COMPLAINT: Cough, sputum, and shortness of breath. HISTORY OF PRESENT ILLNESS: Allie Hylton is a 66-year-old female who has been at [facility] after having neutropenia and pneumonia. She was subsequently discharged there and has been smoking excessively and apparently was coughing more and did not want to go to dialysis. She was becoming progressively more short of breath, and she presented to the [facility]. I was thus called for admission and spoke with emergency room doctor. He states she is having exacerbation of COPD and fluid overload. She was given albuterol with Atrovent, Solu-Medrol, Rocephin and azithromycin. She still had significant wheezing and congestion. LABORATORIES: WBC 3.3 and hemoglobin 11.2. Creatinine 7.83, calcium 5.4, sodium 135. INR 1.1. IMAGING: Chest x-ray shows interstitial vascular prominence, which may represent early congestion, no evidence of consolidating airspace disease, stable left lung scarring. PAST MEDICAL HISTORY: 1. Lung cancer with lobectomy and x-ray therapy. 2. Coronary artery disease. 3. COPD. 4. Diabetes. 5. Hepatitis, unknown type, sounds to be hepatitis. 6. End-stage renal disease, on hemodialysis. 7. Emphysema. 8. [place] at age 50. SURGICAL HISTORY: 1. AV shunt placement. 2. Cholecystectomy. 3. Cardiac catheterizations. 4. Right femur repair. 5. Brain aneurysm with stent that was cathed subsequently. 6. Wedge resection for squamous cell lung cancer. SOCIAL HISTORY: One pack per day active smoker. No alcohol or illicit drug usage. ALLERGIES: MORPHINE, CIPRO AND CODEINE. RETIREMENT MEDICATIONS: 1. Oxycodone p.r.n. 2. Xanax 1 mg b.i.d. p.r.n. 3. Cholecalciferol. 4. Fluoxetine. 5. Midodrine. 6. Calcium acetate. 7. Spiriva. 8. Colace. 9. Guaifenesin. 10. Ipratropium. 11. Albuterol. 12. Breo Ellipta. 13. Gabapentin. 14. Bupropion. 15. Zofran. 16. Dialyvite. 17. Insulin. 18. B6. 19. Aspirin 81 mg daily. 20. Two liters of oxygen. REVIEW OF SYSTEMS: She complains of shortness of breath and sputum production. There is report of fluid overload at commencing her dialysis and increased weakness and congestion and severe anxiety. Negative 14-point review of systems otherwise. VITALS: Temp 98.1, pulse 80, respirations 18. Blood pressure is 155/58. O2 is 98% on room air. GENERAL: She is an alert elder female. She is sitting in dialysis. She speaks in 1-2 word sentences and starts coughing when she tries to talk. HEENT: Carotids are clear, no JVD. Normocephalic, atraumatic. CHEST: Rhonchi in all lung pat and harsh congested cough. No crackles or consolidation. CARDIOVASCULAR: Regular rate and rhythm. No murmurs, rubs, clicks or gallops. ABDOMEN: Soft, nontender, no rebound, no guarding. EXTREMITIES: No edema. SKIN: Clear. NEUROLOGIC: A and O x 2. No apparent distress. Cranial nerves are intact. Sensation is intact in all dermatomes. She has 2/5 weakness at best in all of her extremities. ASSESSMENT: 1. Chronic obstructive pulmonary disease exacerbation. 2. Fluid overload. 3. End-stage renal disease, on hemodialysis. 4. Active smoker. 5. Recent history of Clostridium difficile. 6. Neutropenia, followed by hematology. 7. Recent sepsis and pneumonia. 8. Type 2 diabetes. PLAN: 1. IV Solu-Medrol. 2. No antibiotics for now due to history of C. diff. 3. Pulmonary consult for further recommendations. 4. Continue hemodialysis Saturday, , Saturday. 5. Consult manager resource. 6. Heparin 5000 units b.i.d. for DVT prophylaxis. 7. Midodrine 10 mg t.i.d. scheduled. 8. Oxycodone p.r.n. 9. GI prophylaxis with Protonix 40 IV daily. 10. Follow up her blood cultures. 11. Physical therapy. 12. Occupational therapy. 13. Observation admission as appears she may turn around with hemodialysis hopefully and IV steroids. Possibly discharge back to [facility] tomorrow, pending consultation recommendations. MD ORLANDO Cruz/MOUSTAPHA , 09:30 AM , 10:00 AM
--- NOTE | 2017-08-21 12:26 | EKG ---
Date Performed: 08/20/2017 Time Performed: 10:50:37 PTAGE: 66 years EKG: Sinus rhythm NORMAL ECG PREVIOUS TRACING : 08/01/2017 19.54 Since the prior tracing, there has been no significant bowen DOCTOR: Adam Oliveros Interpretating Date/Time 08/21/2017 12:25:08
[2017-08-21] MEDS: buPROPion HCL 150 MG EXTENDED RELEASE TAB PO SCH (12:56)
[2017-08-21] MEDS: FLUoxetine HCL 20 MG CAP PO SCH (12:56)
[2017-08-21] MEDS: AZITHROMYCIN 250 MG TAB PO SCH (12:56)
[2017-08-21] MEDS: GABAPENTIN 100 MG CAP PO SCH ×2 (12:57→20:53)
[2017-08-21] MEDS: PANTOPRAZOLE SODIUM 40 MG VIAL IV PUSH SCH (16:00)
--- NOTE | 2017-08-21 17:02 | MB ---
cc: Marianela Bear MD DATE OF CONSULT: REASON FOR CONSULTATION: COPD, in exacerbation. HISTORY OF PRESENT ILLNESS: Ms. Hylton is a 66-year-old female, who came from a long-term, who was previously hospitalized with pneumonia and discharged in stable condition. However, she had become again progressively worse, returns to the emergency room where she is hospitalized with exacerbation of her COPD. She denies history of fever, chills, hemoptysis. She does have significant congestion and chest wheezing, which has improved since admission. PAST MEDICAL HISTORY: That of lung cancer, post lobectomy and radiation therapy, peripheral vascular disease, COPD, diabetes mellitus, end-stage renal disease, on dialysis, has an AV shunt in place, right femoral fracture repair, cerebral aneurysm, post stent placement, squamous cell cancer of the lung, post resection. SOCIAL HISTORY: Patient smokes a pack of cigarettes a day until present time. Does not drink any alcohol. Does not use drugs. FAMILY HISTORY: Noncontributory. MEDICATIONS: Include oxycodone, Xanax, cholecalciferol, Spiriva, nebulized ipratropium, albuterol, Breo, gabapentin, Zofran, insulin. ALLERGIES: MORPHINE, CIPRO, CODIENE. SYSTEMS REVIEW: A 12-point review of systems as per HPI and past history, otherwise negative. PHYSICAL EXAMINATION: Patient alert. VITAL SIGNS: Temperature 98, pulse 80, respirations 18, blood pressure 150/60, oxygen saturation 98% on 2 L oxygen. HEENT: Unremarkable. Eyes without icterus. NECK: Without adenopathy. No thyroid enlargement. Central trachea. CHEST: Scattered rhonchi, wheeze bilaterally. CARDIAC: PMI distant. S1, S2 audible. No murmur, no rub. ABDOMEN: Lax. Bowel sounds audible. EXTREMITIES: No clubbing, cyanosis or edema. IMPRESSION: 1. Chronic obstructive pulmonary disease, in exacerbation. 2. Respiratory failure, on oxygen therapy. 3. End-stage renal disease, on maintenance hemodialysis. 4. Diabetes mellitus. PLAN: Patient will be maintained on oxygen therapy as needed. Bronchodilator therapy will be continued. Antibiotics continued. Follow her course closely and depending on progress, proceed further. I do thank you for asking me to partake in Ms. Hylton's care. MD RAISSA Schulte/CARL , 04:32 PM , 05:00 PM
--- NOTE | 2017-08-21 19:21 | HHI.NPPN ---
Subjective History of Present Illness 66 year old female with ESRD CHF COPD Additional Remarks Has AFIB Objective Data Data 08/21/17 08/22/17 19:00 07:00 Intake Total 240 ml Output Total 3800 ml Balance -3560 ml Intake Oral 240 ml Output Hemodialysis 3800 ml # Voids 1 # Bowel Movements 1 Vital Signs Date Time Temp Pulse Resp B/P (MAP) Pulse Ox O2 Delivery O2 Flow Rate FiO2 08/21/17 16:40 98.2 72 17 133/58 (83) 94 08/21/17 16:00 98.0 98 18 123/64 (83) 95 08/21/17 15:25 98.4 99 20 147/66 (93) 95 08/21/17 12:00 97.7 104 18 154/78 (103) 96 08/21/17 08:00 97.8 93 22 139/80 (99) 94 08/21/17 07:38 98 08/21/17 04:00 98.1 85 18 155/58 (90) 96 08/21/17 04:00 80 08/21/17 00:00 81 08/21/17 00:00 98.2 83 16 150/69 (96) 96 08/20/17 21:16 96 21 08/20/17 20:00 97.5 92 20 164/70 (101) 96 08/20/17 20:00 89 08/20/17 20:00 Room Air -: 08/20/17 1120 08/20/17 1120 Physical Exam Eyes Eye Exam: Pupils Equal Pulmonary Resp Exam: Decreased Bases Cardiology CV Exam: Arrhythmia Gastrointestinal/Abdomen GI Exam: Soft, Non-Tender, Positive Bowel Movement Extremeties Extremities Exam: No Edema Assessment/Plan Problem List: (1) ESRD (end stage renal disease) ICD Codes: N18.6 - End stage renal disease Status: Chronic Plan: Hemodialysis done today 3.8 L off doing better Continue with hemodialysis as outlined at her dialysis (2) COPD with acute exacerbation ICD Codes: J44.1 - Chronic obstructive pulmonary disease with (acute) exacerbation Status: Acute Plan: History of smoking (3) DM (diabetes mellitus) ICD Codes: E11.9 - Type 2 diabetes mellitus without complications Status: Acute Plan: Monitor blood glucose (4) Hyperkalemia ICD Codes: E87.5 - Hyperkalemia Plan: give Kayexalate (5) Atrial fibrillation ICD Codes: I48.91 - Unspecified atrial fibrillation Plan: patient to get bolus Amiodarone Oscar Jurado MD Aug 21, 2017 19:21
[2017-08-21] MEDS: ACETAMINOPHEN 325 MG TAB PO PRN ×2 (19:28→23:28)
[2017-08-21] MEDS ORDERED: SODIUM CHLOR 0.9% 250 ML INJ 250 ML IV ONE (20:30)
[2017-08-21] MEDS: DOCUSATE SODIUM 100 MG CAP PO SCH (20:49)
[2017-08-21] MEDS: ALPRAZolam 1 MG TAB PO PRN (23:29)
[2017-08-22] VITALS (12 sets, daily range): BP systolic 115–135; BP diastolic 59–72; PULSE 66–132; RESP 17–20; TEMP 97.1–98.6; O2SAT 93–97
[2017-08-22] MEDS: DILTIAZEM 125 MG/NS 100 ML IV PRN ×4 (00:14→22:14)
[2017-08-22] MEDS: HEPARIN SODIUM - SQ 10,000 UNITS/ML VIAL SQ SCH ×2 (05:31→16:00)
[2017-08-22] MEDS: methylPREDNISolone SOD SUCC 125 MG/2 ML VIAL IV PUSH SCH ×4 (05:31→23:18)
[2017-08-22] MEDS: RESP: ALBUTEROL 2.5 MG/IPRATROPIUM 0.5 MG NEB (SCH) NEB ×4 (07:53→20:05)
[2017-08-22] MEDS: DOCUSATE SODIUM 50 MG/SENNA 8.6 MG TAB PO SCH ×2 (09:00→21:00)
[2017-08-22] MEDS: FLUoxetine HCL 20 MG CAP PO SCH (09:49)
[2017-08-22] MEDS: CALCIUM ACETATE 667 MG CAP PO SCH ×3 (09:49→18:57)
[2017-08-22] MEDS: GABAPENTIN 100 MG CAP PO SCH ×2 (09:49→22:03)
[2017-08-22] MEDS: buPROPion HCL 150 MG EXTENDED RELEASE TAB PO SCH (09:49)
[2017-08-22] MEDS: MIDODRINE 5 MG TAB PO SCH ×3 (09:50→18:00)
[2017-08-22] MEDS: AZITHROMYCIN 250 MG TAB PO SCH (09:50)
--- NOTE | 2017-08-22 11:28 | EKG ---
Date Performed: 08/21/2017 Time Performed: 20:12:51 PTAGE: 66 years EKG: ATRIAL FIBRILLATION WITH RAPID VENTRICULAR RESPONSE NONSPECIFIC ST & T-WAVE ABNORMALITY ABN ORMAL RHYTHM ECG PREVIOUS TRACING : 08/20/2017 10.50 When compared to the prior EKG, there are now ocassional PA Cs. DOCTOR: Penelope Deng Interpretating Date/Time 08/22/2017 11:27:09
--- NOTE | 2017-08-22 15:13 | HHI.FPPN ---
Subjective Remarks c/o sob c/o cough c/o congestion tearful d/w RN Objective Vitals Vital Signs Date Time Temp Pulse Resp B/P (MAP) Pulse Ox O2 Delivery O2 Flow Rate FiO2 08/22/17 08:00 97.9 66 20 117/64 (81) 93 08/22/17 08:00 132 08/22/17 07:54 94 21 08/22/17 04:03 83 08/22/17 04:00 97.2 84 20 115/69 (84) 95 08/22/17 00:14 138 135/72 08/22/17 00:05 89 08/22/17 00:00 98.6 97 20 135/72 (93) 94 08/21/17 20:00 98 08/21/17 19:30 97.4 69 17 123/70 (87) 94 08/21/17 19:28 98 08/21/17 19:00 Room Air 08/21/17 17:04 140 08/21/17 16:40 98.2 72 17 133/58 (83) 94 08/21/17 16:00 98.0 98 18 123/64 (83) 95 08/21/17 16:00 Room Air 08/21/17 15:43 99 08/21/17 15:25 98.4 99 20 147/66 (93) 95 I/O 08/21/17 08/21/17 08/21/17 08/22/17 08/22/17 08/22/17 07:00 15:00 23:00 07:00 15:00 23:00 Intake Total 240 ml 200 ml 240 ml Output Total 3800 ml Balance -3560 ml 200 ml 240 ml Intake Oral 240 ml 240 ml IV Total 200 ml Output Hemodialysis 3800 ml # Voids 2 1 2 # Bowel Movements 1 1 1 Result Diagram: 08/20/17 1120 08/20/17 1120 Objective Remarks GENERAL: SKIN: Warm and dry. HEAD: Atraumatic. Normocephalic. EYES: Pupils equal and round. No scleral icterus. No injection or drainage. ENT: No nasal bleeding or discharge. Mucous membranes pink and moist. NECK: Trachea midline. No JVD. CARDIOVASCULAR: Regular rate and rhythm. RESPIRATORY: B crackles and diffuse ronchi in all lung pat, GASTROINTESTINAL: Abdomen soft, non-tender, nondistended. Hepatic and splenic margins not palpable. MUSCULOSKELETAL: Extremities without clubbing, cyanosis, or edema. No obvious deformities. NEUROLOGICAL: Awake and alert. No obvious cranial nerve deficits. Motor grossly within normal limits. 2 out of 5 muscle strength in the arms and legs. Normal speech. PSYCHIATRIC: Appropriate mood and affect; insight and judgment normal. Medications and IVs Current Medications Medications (Trade) Dose Ordered Sig/Calros Route Start Time Stop Time Status Last Admin (Zithromax) 500 mg DAILY PO 08/21/17 09:00 08/22/17 09:50 (Xanax) 1 mg BID PRN PO 08/20/17 15:45 08/21/17 23:29 (Wellbutrin Xl 24 Hr) 150 mg DAILY PO 08/21/17 09:00 08/22/17 09:49 (Phoslo) 667 mg TIDPC PO 08/20/17 18:30 08/22/17 14:46 (Colace) 200 mg HS PO 08/20/17 21:00 08/20/17 21:48 (PROzac) 20 mg DAILY PO 08/21/17 09:00 08/22/17 09:49 (Neurontin) 100 mg BID PO 08/20/17 21:00 08/22/17 09:49 (Robitussin Liq) 200 mg Q4H PRN PO 08/20/17 15:45 08/21/17 13:52 (Proamatine) 10 mg TID PO 08/20/17 18:00 08/22/17 09:50 (Roxicodone) 10 mg Q6HR PRN PO 08/20/17 15:45 08/22/17 12:32 (Tylenol) 650 mg Q4H PRN PO 08/20/17 16:00 (Zofran Inj) 4 mg Q6H PRN IVP 08/20/17 16:00 08/22/17 12:17 (Heparin Inj) 5,000 units Q12H SQ 08/20/17 16:00 08/22/17 05:31 (Narcan Inj) 0.4 mg UNSCH PRN IV PUSH 08/20/17 16:00 (Marixa-Colace) 1 tab BID PO 08/20/17 21:00 (Milk Of Magnesia Liq) 30 ml Q12H PRN PO 08/20/17 16:00 (Senokot) 17.2 mg Q12H PRN PO 08/20/17 16:00 (Dulcolax Supp) 10 mg DAILY PRN RECTAL 08/20/17 16:00 (Lactulose Liq) 30 ml DAILY PRN PO 08/20/17 16:00 (Duoneb Neb) 1 ampule QID NEB NEB 08/20/17 16:00 08/22/17 07:53 (Catapres) 0.1 mg Q6H PRN PO 08/20/17 16:00 08/20/17 17:02 (SoluMEDROL INJ) 80 mg Q6HR IV PUSH 08/20/17 18:00 08/22/17 12:24 (Protonix Inj) 40 mg Q24H IV PUSH 08/20/17 16:00 08/21/17 16:00 Sodium Chloride 1,000 ml @ 0 mls/hr Q0M PRN OTHER 08/20/17 18:51 (Heparin Inj) 8,000 units UNSCH PRN IV FLUSH 08/20/17 19:00 Sodium Chloride 1,000 ml @ 200 mls/hr Q5H PRN IV 08/20/17 18:51 Sodium Chloride 1,000 ml @ 0 mls/hr Q0M PRN OTHER 08/20/17 18:51 (Mannitol Inj) 12.5 gm UNSCH PRN IV 08/20/17 19:00 Albumin Human 100 ml @ 60 mls/hr UNSCH PRN IV 08/20/17 19:00 (NS Flush) 5 ml UNSCH PRN IV FLUSH 08/20/17 19:00 (Zofran Inj) 4 mg UNSCH PRN IV PUSH 08/20/17 19:00 (Tylenol) 650 mg UNSCH PRN PO 08/20/17 19:00 08/21/17 23:28 (Benadryl) 25 mg UNSCH PRN PO 08/20/17 19:00 (Nitrostat Sl) 0.4 mg UNSCH PRN SL 08/20/17 19:00 (Catapres) 0.1 mg UNSCH PRN PO 08/20/17 19:00 (Epogen Inj) 4,000 units UNSCH PRN IV PUSH 08/20/17 19:00 (Gelfoam 12 Mm/7 Mm Top) 1 foam UNSCH PRN TOP 08/20/17 19:00 Diltiazem HCl 125 mg/Sodium Chloride 125 ml @ 5 mls/hr TITRATE PRN IV 08/21/17 21:45 08/22/17 00:14 A/P Assessment and Plan ASSESSMENT AND PLAN: 66 YEAR OLD CF, DISCHARGED TO [facility] AFTER RECENT ADMIT WITH SEPSIS, NEUTROPENIC HCAP, RETURNED WITH COPD EXAC... Chronic obstructive pulmonary disease exacerbation: iv steroids, abx, pulm consult, HCAP: ON ABX, MONITOR FOR C DIF NEW AF RVR: CARDIO CONSULT, iv diltazem GTT Fluid overload. End-stage renal disease, on hemodialysis. Active smoker. Recent history of Clostridium difficile. Neutropenia: heme/onc consult, Follow up her blood cultures. Recent sepsis and pneumonia. Type 2 diabetes. Heparin 5000 units b.i.d. for VTE PX Midodrine 10 mg t.i.d. scheduled. Oxycodone p.r.n. GI prophylaxis with Protonix 40 IV daily. Physical therapy. Occupational therapy. Alli Watkins MD Aug 22, 2017 15:13
--- NOTE | 2017-08-22 17:06 | HHI.NPPN ---
Subjective History of Present Illness 66 year old female with ESRD CHF COPD Additional Remarks Has AFIB/CP/SOB Objective Data Data Vital Signs Date Time Temp Pulse Resp B/P (MAP) Pulse Ox O2 Delivery O2 Flow Rate FiO2 08/22/17 16:00 Room Air 08/22/17 12:00 Room Air 08/22/17 08:00 97.9 66 20 117/64 (81) 93 08/22/17 08:00 Room Air 08/22/17 08:00 132 08/22/17 07:54 94 21 08/22/17 04:03 83 08/22/17 04:00 97.2 84 20 115/69 (84) 95 08/22/17 00:14 138 135/72 08/22/17 00:05 89 08/22/17 00:00 98.6 97 20 135/72 (93) 94 08/21/17 20:00 98 08/21/17 19:30 97.4 69 17 123/70 (87) 94 08/21/17 19:28 98 08/21/17 19:00 Room Air 08/21/17 17:04 140 -: 08/20/17 1120 08/20/17 1120 Physical Exam Eyes Eye Exam: Pupils Equal Pulmonary Resp Exam: Decreased Bases Cardiology CV Exam: Regular Gastrointestinal/Abdomen GI Exam: Soft, Non-Tender, Positive Bowel Movement Extremeties Extremities Exam: No Edema Assessment/Plan Problem List: (1) ESRD (end stage renal disease) ICD Codes: N18.6 - End stage renal disease Status: Chronic Plan: Hemodialysis yesterday she had Afib m ay need heart cath HD Fri need to coordinate Continue with hemodialysis as planned (2) COPD with acute exacerbation ICD Codes: J44.1 - Chronic obstructive pulmonary disease with (acute) exacerbation Status: Acute Plan: History of smoking (3) DM (diabetes mellitus) ICD Codes: E11.9 - Type 2 diabetes mellitus without complications Status: Acute Plan: Monitor blood glucose (4) Hyperkalemia ICD Codes: E87.5 - Hyperkalemia Plan: give Kayexalate (5) Atrial fibrillation ICD Codes: I48.91 - Unspecified atrial fibrillation Plan: patient to get bolus Amiodarone Oscar Jurado MD Aug 22, 2017 17:06
--- NOTE | 2017-08-22 17:31 | HHI.PR ---
Subjective Remarks ALERT ON O2 NAD Objective Vital Signs Date Time Temp Pulse Resp B/P (MAP) Pulse Ox O2 Delivery O2 Flow Rate FiO2 08/22/17 16:00 Room Air 08/22/17 12:00 Room Air 08/22/17 08:00 97.9 66 20 117/64 (81) 93 08/22/17 08:00 Room Air 08/22/17 08:00 132 08/22/17 07:54 94 21 08/22/17 04:03 83 08/22/17 04:00 97.2 84 20 115/69 (84) 95 08/22/17 00:14 138 135/72 08/22/17 00:05 89 08/22/17 00:00 98.6 97 20 135/72 (93) 94 08/21/17 20:00 98 08/21/17 19:30 97.4 69 17 123/70 (87) 94 08/21/17 19:28 98 08/21/17 19:00 Room Air I/O 08/21/17 08/21/17 08/21/17 08/22/17 08/22/17 08/22/17 07:00 15:00 23:00 07:00 15:00 23:00 Intake Total 240 ml 200 ml 240 ml Output Total 3800 ml Balance -3560 ml 200 ml 240 ml Intake Oral 240 ml 240 ml IV Total 200 ml Output Hemodialysis 3800 ml # Voids 2 1 2 # Bowel Movements 1 1 1 Result Diagram: 08/20/17 1120 08/20/17 1120 Objective Remarks GENERAL: SKIN: Warm and dry. HEAD: Atraumatic. Normocephalic. EYES: Pupils equal and round. No scleral icterus. No injection or drainage. ENT: No nasal bleeding or discharge. Mucous membranes pink and moist. NECK: Trachea midline. No JVD. CARDIOVASCULAR: Regular rate and rhythm. RESPIRATORY: No accessory muscle use. FEW RHONCHI AT BASIS. Breath sounds equal bilaterally. GASTROINTESTINAL: Abdomen soft, non-tender, nondistended. Hepatic and splenic margins not palpable. MUSCULOSKELETAL: Extremities without clubbing, cyanosis, or edema. No obvious deformities. NEUROLOGICAL: Awake and alert. No obvious cranial nerve deficits. Motor grossly within normal limits. Five out of 5 muscle strength in the arms and legs. Normal speech. PSYCHIATRIC: Appropriate mood and affect; insight and judgment normal. Assessment and Plan Assessment and Plan RESPIRATORY FAILURE , ON O2 COPD EXACERBATION CKD PLAN O2 NEEDED BRONCHODILATORS INCREASE ACTIVITY Marianela Bear MD Aug 22, 2017 17:31
[2017-08-22] MEDS: PANTOPRAZOLE SODIUM 40 MG VIAL IV PUSH SCH (18:52)
[2017-08-22] MEDS: DOCUSATE SODIUM 100 MG CAP PO SCH (21:00)
[2017-08-22] MEDS: ALPRAZolam 1 MG TAB PO PRN (22:03)
[2017-08-23] VITALS (12 sets, daily range): BP systolic 100–161; BP diastolic 56–72; PULSE 70–148; RESP 16–20; TEMP 95.6–98.5; O2SAT 92–96
[2017-08-23] MEDS: HEPARIN SODIUM - SQ 10,000 UNITS/ML VIAL SQ SCH ×2 (04:00→16:00)
[2017-08-23] MEDS: methylPREDNISolone SOD SUCC 125 MG/2 ML VIAL IV PUSH SCH ×3 (05:46→17:08)
[2017-08-23 08:07] LABS: AUTOMATED NEUTROPHIL # 6.4 TH/MM3 (1.8-7.7); BASOPHIL % 0.2 % (0.0-2.0); EOSINOPHIL % 0.1 % (0.0-4.0); HEMATOCRIT 32.2 % (35.0-46.0); HEMOGLOBIN 10.5 GM/DL (11.6-15.3); LYMPH % 2.8 % (9.0-44.0); LYMPHOCYTE # 0.2 TH/MM3 (1.0-4.8); MEAN CELL VOLUME 91.2 FL (80.0-100.0); MEAN CORPUSCULAR HEMOGLOBIN 29.8 PG (27.0-34.0); MEAN CORPUSCULAR HGB CONC 32.7 % (32.0-36.0); MEAN PLATELET VOLUME 7.9 FL (7.0-11.0); MONOCYTE # 0.1 TH/MM3 (0-0.9); NEUT % 94.9 % (16.0-70.0); PLATELET COUNT 300 TH/MM3 (150-450); RED BLOOD COUNT 3.53 MIL/MM3 (4.00-5.30); RED CELL DISTRIBUTION WIDTH 15.9 % (11.6-17.2); WHITE BLOOD COUNT 6.7 TH/MM3 (4.0-11.0)
[2017-08-23] MEDS: RESP: ALBUTEROL 2.5 MG/IPRATROPIUM 0.5 MG NEB (SCH) NEB ×4 (08:22→19:58)
[2017-08-23 08:32] LABS: ALBUMIN 3.6 GM/DL (3.4-5.0); BICARBONATE 22.5 MEQ/L (21.0-32.0); CALCIUM 9.6 MG/DL (8.5-10.1)
[2017-08-23 08:33] LABS: CREATININE 8.3 MG/DL (0.50-1.00)
[2017-08-23 08:42] LABS: CHOLESTEROL/ HDL RATIO 6.83 RATIO; DIRECT BILIRUBIN ADULT 0.1 MG/DL (0.0-0.2); HDL CHOLESTEROL 21.2 MG/DL (40.0-60.0); INDIRECT BILIRUBIN 0.3 MG/DL (0.0-0.8); TOTAL BILIRUBIN ADULT 0.4 MG/DL (0.2-1.0); TOTAL PROTEIN 8.2 GM/DL (6.4-8.2)
[2017-08-23] MEDS: DOCUSATE SODIUM 50 MG/SENNA 8.6 MG TAB PO SCH ×2 (09:00→21:00)
--- NOTE | 2017-08-23 10:00 | HHI.NPPN ---
Subjective History of Present Illness 66 year old female with ESRD CHF COPD Additional Remarks Has AFIB/CP/SOB Objective Data Data 08/23/17 08/24/17 19:00 07:00 Intake Total 200 ml Output Total 300 ml Balance -100 ml Intake Oral 200 ml Output Urine Total 300 ml # Bowel Movements 0 Vital Signs Date Time Temp Pulse Resp B/P (MAP) Pulse Ox O2 Delivery O2 Flow Rate FiO2 08/23/17 08:22 96 21 08/23/17 04:00 97.5 130 20 100/62 (75) 96 08/23/17 03:46 129 08/23/17 00:00 97.8 118 20 141/64 (89) 94 08/22/17 23:00 114 08/22/17 22:14 78 119/71 08/22/17 20:08 93 21 08/22/17 20:00 97.9 66 17 119/61 (80) 95 08/22/17 19:40 68 08/22/17 19:00 Room Air 08/22/17 16:00 98.0 70 20 117/61 (79) 94 08/22/17 16:00 Room Air 08/22/17 16:00 68 08/22/17 12:00 Room Air 08/22/17 12:00 106 08/22/17 12:00 97.1 66 20 131/59 (83) 97 -: 08/23/17 0613 08/23/17 0613 Physical Exam Eyes Eye Exam: Pupils Equal Pulmonary Resp Exam: Decreased Bases Cardiology CV Exam: Regular Gastrointestinal/Abdomen GI Exam: Soft, Non-Tender, Positive Bowel Movement Extremeties Extremities Exam: No Edema Assessment/Plan Problem List: (1) ESRD (end stage renal disease) ICD Codes: N18.6 - End stage renal disease Status: Chronic Plan: Hemodialysis Seen has Afib/flutter cut short today UF 1 L she had Afib need heart cath HD change to TTS Continue with hemodialysis as planned (2) COPD with acute exacerbation ICD Codes: J44.1 - Chronic obstructive pulmonary disease with (acute) exacerbation Status: Acute Plan: History of smoking (3) DM (diabetes mellitus) ICD Codes: E11.9 - Type 2 diabetes mellitus without complications Status: Acute Plan: Monitor blood glucose (4) Hyperkalemia ICD Codes: E87.5 - Hyperkalemia Plan: give Kayexalate (5) Atrial fibrillation ICD Codes: I48.91 - Unspecified atrial fibrillation Plan: patient to get bolus Amiodarone Oscar Jurado MD Aug 23, 2017 10:00
--- NOTE | 2017-08-23 10:14 | HHI.FPPN ---
Subjective Remarks REPORTS SHE IS GOING FOR HEARTH CATH C/O COUGH C/O ANXIETY C/O PAIN SEEN IN HD D/W RN'S Objective Vitals Vital Signs Date Time Temp Pulse Resp B/P (MAP) Pulse Ox O2 Delivery O2 Flow Rate FiO2 08/23/17 08:22 96 21 08/23/17 04:00 97.5 130 20 100/62 (75) 96 08/23/17 03:46 129 08/23/17 00:00 97.8 118 20 141/64 (89) 94 08/22/17 23:00 114 08/22/17 22:14 78 119/71 08/22/17 20:08 93 21 08/22/17 20:00 97.9 66 17 119/61 (80) 95 08/22/17 19:40 68 08/22/17 19:00 Room Air 08/22/17 16:00 98.0 70 20 117/61 (79) 94 08/22/17 16:00 Room Air 08/22/17 16:00 68 08/22/17 12:00 Room Air 08/22/17 12:00 106 08/22/17 12:00 97.1 66 20 131/59 (83) 97 I/O 08/22/17 08/22/17 08/22/17 08/23/17 08/23/17 08/23/17 07:00 15:00 23:00 07:00 15:00 23:00 Intake Total 240 ml 240 ml 200 ml Output Total 300 ml Balance 240 ml 240 ml -100 ml Intake Oral 240 ml 240 ml 200 ml Output Urine Total 300 ml # Voids 2 2 # Bowel Movements 1 1 0 Result Diagram: 08/23/17 0613 08/23/17 0613 Objective Remarks GENERAL: SKIN: Warm and dry. HEAD: Atraumatic. Normocephalic. EYES: Pupils equal and round. No scleral icterus. No injection or drainage. ENT: No nasal bleeding or discharge. Mucous membranes pink and moist. NECK: Trachea midline. No JVD. CARDIOVASCULAR: Regular rate and rhythm. RESPIRATORY: B crackles and diffuse ronchi in all lung pat, GASTROINTESTINAL: Abdomen soft, non-tender, nondistended. Hepatic and splenic margins not palpable. MUSCULOSKELETAL: Extremities without clubbing, cyanosis, or edema. No obvious deformities. NEUROLOGICAL: Awake and alert. No obvious cranial nerve deficits. Motor grossly within normal limits. 2 out of 5 muscle strength in the arms and legs. Normal speech. PSYCHIATRIC: Appropriate mood and affect; insight and judgment normal. Medications and IVs Current Medications Medications (Trade) Dose Ordered Sig/Carlos Route Start Time Stop Time Status Last Admin (Zithromax) 500 mg DAILY PO 08/21/17 09:00 08/23/17 12:02 (Xanax) 1 mg BID PRN PO 08/20/17 15:45 08/22/17 22:03 (Wellbutrin Xl 24 Hr) 150 mg DAILY PO 08/21/17 09:00 08/23/17 12:02 (Phoslo) 667 mg TIDPC PO 08/20/17 18:30 08/23/17 12:02 (Colace) 200 mg HS PO 08/20/17 21:00 08/20/17 21:48 (PROzac) 20 mg DAILY PO 08/21/17 09:00 08/23/17 12:02 (Neurontin) 100 mg BID PO 08/20/17 21:00 08/23/17 12:01 (Robitussin Liq) 200 mg Q4H PRN PO 08/20/17 15:45 08/21/17 13:52 (Proamatine) 10 mg TID PO 08/20/17 18:00 08/23/17 12:02 (Roxicodone) 10 mg Q6HR PRN PO 08/20/17 15:45 08/22/17 12:32 (Tylenol) 650 mg Q4H PRN PO 08/20/17 16:00 (Zofran Inj) 4 mg Q6H PRN IVP 08/20/17 16:00 08/22/17 12:17 (Heparin Inj) 5,000 units Q12H SQ 08/20/17 16:00 08/22/17 05:31 (Narcan Inj) 0.4 mg UNSCH PRN IV PUSH 08/20/17 16:00 (Marixa-Colace) 1 tab BID PO 08/20/17 21:00 (Milk Of Magnesia Liq) 30 ml Q12H PRN PO 08/20/17 16:00 (Senokot) 17.2 mg Q12H PRN PO 08/20/17 16:00 (Dulcolax Supp) 10 mg DAILY PRN RECTAL 08/20/17 16:00 (Lactulose Liq) 30 ml DAILY PRN PO 08/20/17 16:00 (Duoneb Neb) 1 ampule QID NEB NEB 08/20/17 16:00 08/23/17 08:22 (Catapres) 0.1 mg Q6H PRN PO 08/20/17 16:00 08/20/17 17:02 (SoluMEDROL INJ) 80 mg Q6HR IV PUSH 08/20/17 18:00 08/23/17 12:54 (Protonix Inj) 40 mg Q24H IV PUSH 08/20/17 16:00 08/22/17 18:52 Sodium Chloride 1,000 ml @ 0 mls/hr Q0M PRN OTHER 08/20/17 18:51 (Heparin Inj) 8,000 units UNSCH PRN IV FLUSH 08/20/17 19:00 Sodium Chloride 1,000 ml @ 200 mls/hr Q5H PRN IV 08/20/17 18:51 Sodium Chloride 1,000 ml @ 0 mls/hr Q0M PRN OTHER 08/20/17 18:51 (Mannitol Inj) 12.5 gm UNSCH PRN IV 08/20/17 19:00 Albumin Human 100 ml @ 60 mls/hr UNSCH PRN IV 08/20/17 19:00 (NS Flush) 5 ml UNSCH PRN IV FLUSH 08/20/17 19:00 08/23/17 12:03 (Zofran Inj) 4 mg UNSCH PRN IV PUSH 08/20/17 19:00 08/23/17 12:16 (Tylenol) 650 mg UNSCH PRN PO 08/20/17 19:00 08/21/17 23:28 (Benadryl) 25 mg UNSCH PRN PO 08/20/17 19:00 (Nitrostat Sl) 0.4 mg UNSCH PRN SL 08/20/17 19:00 (Catapres) 0.1 mg UNSCH PRN PO 08/20/17 19:00 (Epogen Inj) 4,000 units UNSCH PRN IV PUSH 08/20/17 19:00 08/23/17 12:15 (Gelfoam 12 Mm/7 Mm Top) 1 foam UNSCH PRN TOP 08/20/17 19:00 08/23/17 12:15 Diltiazem HCl 125 mg/Sodium Chloride 125 ml @ 5 mls/hr TITRATE PRN IV 08/21/17 21:45 08/22/17 22:14 A/P Assessment and Plan ASSESSMENT AND PLAN: 66 YEAR OLD CF, DISCHARGED TO [facility] AFTER RECENT ADMIT WITH SEPSIS, NEUTROPENIC HCAP, RETURNED WITH COPD EXAC... Chronic obstructive pulmonary disease exacerbation: iv steroids, abx, pulm consult, HCAP: ON ABX, MONITOR FOR C DIF NEW AF RVR: CARDIO CONSULT, iv diltazem GTT, LHC PENDING TODAY, NEED FURTHER COAG RECS... Fluid overload. End-stage renal disease, on hemodialysis. Active smoker. Recent history of Clostridium difficile. Neutropenia: heme/onc consult, Follow up her blood cultures. Recent sepsis and pneumonia. Type 2 diabetes. Heparin 5000 units b.i.d. for VTE PX Midodrine 10 mg t.i.d. scheduled. Oxycodone p.r.n. GI prophylaxis with Protonix 40 IV daily. Physical therapy. Occupational therapy. Alli Watkins MD Aug 23, 2017 10:14
[2017-08-23] MEDS: GABAPENTIN 100 MG CAP PO SCH ×2 (12:01→22:06)
[2017-08-23] MEDS: FLUoxetine HCL 20 MG CAP PO SCH (12:02)
[2017-08-23] MEDS: CALCIUM ACETATE 667 MG CAP PO SCH ×3 (12:02→17:09)
[2017-08-23] MEDS: AZITHROMYCIN 250 MG TAB PO SCH (12:02)
[2017-08-23] MEDS: buPROPion HCL 150 MG EXTENDED RELEASE TAB PO SCH (12:02)
[2017-08-23] MEDS: MIDODRINE 5 MG TAB PO SCH ×3 (12:02→17:09)
[2017-08-23] MEDS: EPOETIN ALFA 10,000 UNITS/ML VIAL IV PUSH PRN (12:15)
[2017-08-23] MEDS: GELATIN 12 MM/7 MM FOAM TOP PRN (12:15)
--- NOTE | 2017-08-23 13:49 | PD.CARD.PN ---
Subjective Subjective Remarks alert in nad Objective Medications Current Medications Medications (Trade) Dose Ordered Sig/Carlos Route Start Time Stop Time Status Last Admin (Zithromax) 500 mg DAILY PO 08/21/17 09:00 08/23/17 12:02 (Xanax) 1 mg BID PRN PO 08/20/17 15:45 08/22/17 22:03 (Wellbutrin Xl 24 Hr) 150 mg DAILY PO 08/21/17 09:00 08/23/17 12:02 (Phoslo) 667 mg TIDPC PO 08/20/17 18:30 08/23/17 12:02 (Colace) 200 mg HS PO 08/20/17 21:00 08/20/17 21:48 (PROzac) 20 mg DAILY PO 08/21/17 09:00 08/23/17 12:02 (Neurontin) 100 mg BID PO 08/20/17 21:00 08/23/17 12:01 (Robitussin Liq) 200 mg Q4H PRN PO 08/20/17 15:45 08/21/17 13:52 (Proamatine) 10 mg TID PO 08/20/17 18:00 08/23/17 12:02 (Roxicodone) 10 mg Q6HR PRN PO 08/20/17 15:45 08/22/17 12:32 (Tylenol) 650 mg Q4H PRN PO 08/20/17 16:00 (Zofran Inj) 4 mg Q6H PRN IVP 08/20/17 16:00 08/22/17 12:17 (Heparin Inj) 5,000 units Q12H SQ 08/20/17 16:00 08/22/17 05:31 (Narcan Inj) 0.4 mg UNSCH PRN IV PUSH 08/20/17 16:00 (Marixa-Colace) 1 tab BID PO 08/20/17 21:00 (Milk Of Magnesia Liq) 30 ml Q12H PRN PO 08/20/17 16:00 (Senokot) 17.2 mg Q12H PRN PO 08/20/17 16:00 (Dulcolax Supp) 10 mg DAILY PRN RECTAL 08/20/17 16:00 (Lactulose Liq) 30 ml DAILY PRN PO 08/20/17 16:00 (Duoneb Neb) 1 ampule QID NEB NEB 08/20/17 16:00 08/23/17 08:22 (Catapres) 0.1 mg Q6H PRN PO 08/20/17 16:00 08/20/17 17:02 (SoluMEDROL INJ) 80 mg Q6HR IV PUSH 08/20/17 18:00 08/23/17 12:54 (Protonix Inj) 40 mg Q24H IV PUSH 08/20/17 16:00 08/22/17 18:52 Sodium Chloride 1,000 ml @ 0 mls/hr Q0M PRN OTHER 08/20/17 18:51 (Heparin Inj) 8,000 units UNSCH PRN IV FLUSH 08/20/17 19:00 Sodium Chloride 1,000 ml @ 200 mls/hr Q5H PRN IV 08/20/17 18:51 Sodium Chloride 1,000 ml @ 0 mls/hr Q0M PRN OTHER 08/20/17 18:51 (Mannitol Inj) 12.5 gm UNSCH PRN IV 08/20/17 19:00 Albumin Human 100 ml @ 60 mls/hr UNSCH PRN IV 08/20/17 19:00 (NS Flush) 5 ml UNSCH PRN IV FLUSH 08/20/17 19:00 08/23/17 12:03 (Zofran Inj) 4 mg UNSCH PRN IV PUSH 08/20/17 19:00 08/23/17 12:16 (Tylenol) 650 mg UNSCH PRN PO 08/20/17 19:00 08/21/17 23:28 (Benadryl) 25 mg UNSCH PRN PO 08/20/17 19:00 (Nitrostat Sl) 0.4 mg UNSCH PRN SL 08/20/17 19:00 (Catapres) 0.1 mg UNSCH PRN PO 08/20/17 19:00 (Epogen Inj) 4,000 units UNSCH PRN IV PUSH 08/20/17 19:00 08/23/17 12:15 (Gelfoam 12 Mm/7 Mm Top) 1 foam UNSCH PRN TOP 08/20/17 19:00 08/23/17 12:15 Diltiazem HCl 125 mg/Sodium Chloride 125 ml @ 5 mls/hr TITRATE PRN IV 08/21/17 21:45 08/22/17 22:14 Vital Signs / I&O Vital Signs Date Time Temp Pulse Resp B/P (MAP) Pulse Ox O2 Delivery O2 Flow Rate FiO2 08/23/17 12:16 95.6 77 16 118/56 (76) 94 08/23/17 08:22 96 21 08/23/17 08:00 97.7 148 20 118/61 (80) 95 08/23/17 04:00 97.5 130 20 100/62 (75) 96 08/23/17 03:46 129 08/23/17 00:00 97.8 118 20 141/64 (89) 94 08/22/17 23:00 114 08/22/17 22:14 78 119/71 08/22/17 20:08 93 21 08/22/17 20:00 97.9 66 17 119/61 (80) 95 08/22/17 19:40 68 08/22/17 19:00 Room Air 08/22/17 16:00 98.0 70 20 117/61 (79) 94 08/22/17 16:00 Room Air 08/22/17 16:00 68 I/O 08/22/17 08/22/17 08/22/17 08/23/17 08/23/17 08/23/17 07:00 15:00 23:00 07:00 15:00 23:00 Intake Total 240 ml 240 ml 200 ml Output Total 1300 ml Balance 240 ml 240 ml -1100 ml Intake Oral 240 ml 240 ml 200 ml Output Urine Total 300 ml Hemodialysis 1000 ml # Voids 2 2 # Bowel Movements 1 1 0 Laboratory GENERAL: SKIN: Warm and dry. HEAD: Normocephalic. EYES: No scleral icterus. No injection or drainage. NECK: Supple, trachea midline. No JVD or lymphadenopathy. CARDIOVASCULAR: Regular rate and rhythm without murmurs, gallops, or rubs. RESPIRATORY: Breath sounds equal bilaterally. No accessory muscle use. GASTROINTESTINAL: Abdomen soft, non-tender, nondistended. MUSCULOSKELETAL: No cyanosis, or edema. BACK: Nontender without obvious deformity. No CVA tenderness. Laboratory Tests Test 08/23/17 06:13 White Blood Count 6.7 TH/MM3 Red Blood Count 3.53 MIL/MM3 Hemoglobin 10.5 GM/DL Hematocrit 32.2 % Mean Corpuscular Volume 91.2 FL Mean Corpuscular Hemoglobin 29.8 PG Mean Corpuscular Hemoglobin Concent 32.7 % Red Cell Distribution Width 15.9 % Platelet Count 300 TH/MM3 Mean Platelet Volume 7.9 FL Neutrophils (%) (Auto) 94.9 % Lymphocytes (%) (Auto) 2.8 % Monocytes (%) (Auto) 2.0 % Eosinophils (%) (Auto) 0.1 % Basophils (%) (Auto) 0.2 % Neutrophils # (Auto) 6.4 TH/MM3 Lymphocytes # (Auto) 0.2 TH/MM3 Monocytes # (Auto) 0.1 TH/MM3 Eosinophils # (Auto) 0.0 TH/MM3 Basophils # (Auto) 0.0 TH/MM3 CBC Comment DIFF FINAL Differential Comment Blood Urea Nitrogen 80 MG/DL Creatinine 8.30 MG/DL Random Glucose 196 MG/DL Total Protein 8.2 GM/DL Albumin 3.6 GM/DL Calcium Level 9.6 MG/DL Alkaline Phosphatase 116 U/L Aspartate Amino Transf (AST/SGOT) 5 U/L Alanine Aminotransferase (ALT/SGPT) 11 U/L Total Bilirubin 0.4 MG/DL Direct Bilirubin 0.1 MG/DL Sodium Level 134 MEQ/L Potassium Level 3.9 MEQ/L Chloride Level 94 MEQ/L Carbon Dioxide Level 22.5 MEQ/L Anion Gap 18 MEQ/L Estimat Glomerular Filtration Rate 5 ML/MIN Indirect Bilirubin 0.3 MG/DL Total Creatine Kinase 14 U/L Triglycerides Level 245 MG/DL Cholesterol Level 145 MG/DL LDL Cholesterol 75 MG/DL HDL Cholesterol 21.2 MG/DL Cholesterol/HDL Ratio 6.83 RATIO Assessment and Plan Problem List: (1) Unstable angina ICD Codes: I20.0 - Unstable angina (2) CHF (congestive heart failure) ICD Codes: I50.9 - Heart failure, unspecified (3) COPD (chronic obstructive pulmonary disease) ICD Codes: J44.9 - Chronic obstructive pulmonary disease, unspecified Status: Chronic (4) Shortness of breath ICD Codes: R06.02 - Shortness of breath (5) Chronic kidney disease ICD Codes: N18.9 - Chronic kidney disease, unspecified Status: Chronic (6) Atrial fibrillation ICD Codes: I48.91 - Unspecified atrial fibrillation (7) DM (diabetes mellitus) ICD Codes: E11.9 - Type 2 diabetes mellitus without complications Status: Acute (8) ESRD (end stage renal disease) ICD Codes: N18.6 - End stage renal disease Status: Chronic (9) COPD with acute exacerbation ICD Codes: J44.1 - Chronic obstructive pulmonary disease with (acute) exacerbation Status: Acute (10) Normocytic anemia ICD Codes: D64.9 - Anemia, unspecified Status: Chronic Assessment and Plan 1.) USA/CAD - patient consents to cath; wating for neurology clearance for aspirin, plavix, heparin, 2b3a inhibitor due h/o cerebral aneurysm s/p stent capping; start lipitor 10 mg hs 2.) Afib - continue cardizem drip, f/u neurology recs for Anshul Gupta MD Aug 23, 2017 13:49
[2017-08-23] MEDS ORDERED: ATORVASTATIN 10 MG TAB PO ONE (14:45)
--- NOTE | 2017-08-23 15:37 | HHI.PR ---
Subjective Remarks ALERT ON O2 NAD Objective Vital Signs Date Time Temp Pulse Resp B/P (MAP) Pulse Ox O2 Delivery O2 Flow Rate FiO2 08/23/17 12:16 95.6 77 16 118/56 (76) 94 08/23/17 08:22 96 21 08/23/17 08:00 97.7 148 20 118/61 (80) 95 08/23/17 04:00 97.5 130 20 100/62 (75) 96 08/23/17 03:46 129 08/23/17 00:00 97.8 118 20 141/64 (89) 94 08/22/17 23:00 114 08/22/17 22:14 78 119/71 08/22/17 20:08 93 21 08/22/17 20:00 97.9 66 17 119/61 (80) 95 08/22/17 19:40 68 08/22/17 19:00 Room Air 08/22/17 16:00 98.0 70 20 117/61 (79) 94 08/22/17 16:00 Room Air 08/22/17 16:00 68 I/O 08/22/17 08/22/17 08/22/17 08/23/17 08/23/17 08/23/17 07:00 15:00 23:00 07:00 15:00 23:00 Intake Total 240 ml 240 ml 200 ml Output Total 1300 ml Balance 240 ml 240 ml -1100 ml Intake Oral 240 ml 240 ml 200 ml Output Urine Total 300 ml Hemodialysis 1000 ml # Voids 2 2 # Bowel Movements 1 1 0 Result Diagram: 08/23/1713 08/23/17 06 Objective Remarks GENERAL: SKIN: Warm and dry. HEAD: Atraumatic. Normocephalic. EYES: Pupils equal and round. No scleral icterus. No injection or drainage. ENT: No nasal bleeding or discharge. Mucous membranes pink and moist. NECK: Trachea midline. No JVD. CARDIOVASCULAR: Regular rate and rhythm. RESPIRATORY: No accessory muscle use. FEW RHONCHI AT BASIS. Breath sounds equal bilaterally. GASTROINTESTINAL: Abdomen soft, non-tender, nondistended. Hepatic and splenic margins not palpable. MUSCULOSKELETAL: Extremities without clubbing, cyanosis, or edema. No obvious deformities. NEUROLOGICAL: Awake and alert. No obvious cranial nerve deficits. Motor grossly within normal limits. Five out of 5 muscle strength in the arms and legs. Normal speech. PSYCHIATRIC: Appropriate mood and affect; insight and judgment normal. Assessment and Plan Assessment and Plan RESPIRATORY FAILURE , ON O2 COPD EXACERBATION CKD PLAN O2 NEEDED BRONCHODILATORS,steroids INCREASE ACTIVITY Marianela Bear MD Aug 23, 2017 15:37
--- NOTE | 2017-08-23 16:42 | PD.CONS ---
History of Present Illness Service Neurology Consult Requested By Medicine Reason for Consult History of aneurysm, anticoagulant opinion Primary Care Physician Alli Watkins MD History of Present Illness History of Present Illness 66-year-old female with history of brain aneurysm, COPD, lung cancer status post wedge resection left lung, ESRD, chronic cigarette smoker who had been admitted with exacerbation of COPD. During her admission she was noted to be in atrial fibrillation with rapid ventricular response, and neurology was consulted for opinion on anticoagulation due to her history of aneurysm. In discussing further with the patient today she noted history of brain aneurysm coiling in [place] approximately 7 years ago. At the time of evaluation she denies any headaches or visual disturbances. He denies any acute problems overnight. She is pending cardiac catheterization later today apparently. Allergies: Coded Allergies: morphine (Verified Allergy, Severe, RASH, 08/20/17) ciprofloxacin (Verified Adverse Reaction, Intermediate, NAUSEAS, 08/20/17) codeine (Verified Adverse Reaction, Intermediate, Vertigo, 08/20/17) Past Medical History Basilar artery aneurysm, status post coiling COPD CHF Hypertension Lung cancer Smoking End-stage renal disease Diabetes Past Surgical History Basilar aneurysm coiling 7 years ago AV fistula left arm lung wedge resection Rt femur repair Cholecystectomy heart cath Reported Medications Colace (Docusate Sodium) 100 Mg Capsule 200 Mg PO HS Guaifenesin Liq (Guaifenesin) 100 mg/5 ML Soln 200 Mg PO Q4H PRN Ipratropium Neb (Ipratropium Hart[place]) 0.5 Mg/2.5 Ml Amp 0.5 Mg NEB Q6HR Albuterol Neb (Albuterol Sulfate) 2.5 Mg/3 Ml Neb 2.5 Mg NEB Q6HR PRN Breo Ellipta Inh (Fluticasone/Vilanterol) 100-25 Mcg/Act Inh 1 Puff INH DAILY Use daily at the same time. Rinse mouth after each use. Tylenol (Acetaminophen) 325 Mg Tab 650 Mg PO Q4H PRN Milk of Magnesia Liq (Magnesium Hydroxide) 400 Mg/5 Ml Susp 30 Ml PO HS PRN Nitroglycerin SL (Nitroglycerin) 0.4 Mg Subl 0.4 Mg SL DIRECTED PRN ONE TABLET UNDER THE TONGUE NEEDED FOR CHEST PAIN, MAY REPEAT EVERY FIVE MINUTES FOR A TOTAL OF 3 DOSES OR CALL 911 IF NO RELIEF Gabapentin 100 Mg Cap 100 Mg PO BID Bupropion HCl ER 24 HR (Bupropion HCl) 150 Mg Tab 150 Mg PO DAILY Proair Hfa 8.5 GM Inh (Albuterol Sulfate) 90 Mcg/Act Aer 2 Puff INH Q4HR PRN 108 mcg/actuation Lidopril Topical (Lidocaine-Prilocaine Topical) 2.5-2.5 % Cream 1 Applic TOPICAL TUTHSA PRN Apply to shunt site daily every Saturday, and Saturday 1hr prior to dialysis Zofran (Ondansetron HCl) 4 Mg Tab 4 Mg PO Q6HR PRN Dialyvite 800 (B-Complex W/ C & Folic Acid) 1 Tab 1 Tab PO DAILY Ventolin Hfa 18 GM Inh (Albuterol Sulfate) 90 Mcg/Act Aer 2 Puff INH Q4HR PRN Mucinex DM (Dextromethorphan-Guaifenesin) 30-600 Mg Tab 2 Tab PO Q12HR PRN Aspirin 81 Mg Chew 81 Mg PO DAILY Oxygen tank (Oxygen) 1 Ea Tank 2 Liter EDUARDO.CANULA HS Oxygen Concentrator Portable Gaseous 2 L/min via Nasal Cannula Continuous For 99 months Family History noncontributory Social History History of daily smoking, infrequent alcohol use, no drugs (Maykel Gonzalez) Review of Systems Constitutional: Negative except HPI Eye: Negative Except HPI ENMT: Negative except HPI Respiratory: Negative except HPI Cardiovascular: Negative except HPI Gastrointestinal: Negative except HPI Tom/Lymph: Negative except HPI Musculoskeletal: Negative except HPI Neurologic: Negative except HPI Psychiatric: Negative except HPI All other ROS: ROS reviewed as documented in chart (Maykel Gonzalez) Past Family Social History Allergies: Coded Allergies: morphine (Verified Allergy, Severe, RASH, 08/20/17) ciprofloxacin (Verified Adverse Reaction, Intermediate, NAUSEAS, 08/20/17) codeine (Verified Adverse Reaction, Intermediate, Vertigo, 08/20/17) Active Ordered Medications Current Medications Medications (Trade) Dose Ordered Sig/Carlos Route Start Time Stop Time Status Last Admin (Zithromax) 500 mg DAILY PO 08/21/17 09:00 08/23/17 12:02 (Xanax) 1 mg BID PRN PO 08/20/17 15:45 08/22/17 22:03 (Wellbutrin Xl 24 Hr) 150 mg DAILY PO 08/21/17 09:00 08/23/17 12:02 (Phoslo) 667 mg TIDPC PO 08/20/17 18:30 08/23/17 12:02 (Colace) 200 mg HS PO 08/20/17 21:00 08/20/17 21:48 (PROzac) 20 mg DAILY PO 08/21/17 09:00 08/23/17 12:02 (Neurontin) 100 mg BID PO 08/20/17 21:00 08/23/17 12:01 (Robitussin Liq) 200 mg Q4H PRN PO 08/20/17 15:45 08/21/17 13:52 (Proamatine) 10 mg TID PO 08/20/17 18:00 08/23/17 12:02 (Roxicodone) 10 mg Q6HR PRN PO 08/20/17 15:45 08/22/17 12:32 (Tylenol) 650 mg Q4H PRN PO 08/20/17 16:00 (Zofran Inj) 4 mg Q6H PRN IVP 08/20/17 16:00 08/22/17 12:17 (Heparin Inj) 5,000 units Q12H SQ 08/20/17 16:00 08/22/17 05:31 (Narcan Inj) 0.4 mg UNSCH PRN IV PUSH 08/20/17 16:00 (Marixa-Colace) 1 tab BID PO 08/20/17 21:00 (Milk Of Magnesia Liq) 30 ml Q12H PRN PO 08/20/17 16:00 (Senokot) 17.2 mg Q12H PRN PO 08/20/17 16:00 (Dulcolax Supp) 10 mg DAILY PRN RECTAL 08/20/17 16:00 (Lactulose Liq) 30 ml DAILY PRN PO 08/20/17 16:00 (Duoneb Neb) 1 ampule QID NEB NEB 08/20/17 16:00 08/23/17 15:54 (Catapres) 0.1 mg Q6H PRN PO 08/20/17 16:00 08/20/17 17:02 (SoluMEDROL INJ) 80 mg Q6HR IV PUSH 08/20/17 18:00 08/23/17 12:54 (Protonix Inj) 40 mg Q24H IV PUSH 08/20/17 16:00 08/22/17 18:52 Sodium Chloride 1,000 ml @ 0 mls/hr Q0M PRN OTHER 08/20/17 18:51 (Heparin Inj) 8,000 units UNSCH PRN IV FLUSH 08/20/17 19:00 Sodium Chloride 1,000 ml @ 200 mls/hr Q5H PRN IV 08/20/17 18:51 Sodium Chloride 1,000 ml @ 0 mls/hr Q0M PRN OTHER 08/20/17 18:51 (Mannitol Inj) 12.5 gm UNSCH PRN IV 08/20/17 19:00 Albumin Human 100 ml @ 60 mls/hr UNSCH PRN IV 08/20/17 19:00 (NS Flush) 5 ml UNSCH PRN IV FLUSH 08/20/17 19:00 08/23/17 12:03 (Zofran Inj) 4 mg UNSCH PRN IV PUSH 08/20/17 19:00 08/23/17 12:16 (Tylenol) 650 mg UNSCH PRN PO 08/20/17 19:00 08/21/17 23:28 (Benadryl) 25 mg UNSCH PRN PO 08/20/17 19:00 (Nitrostat Sl) 0.4 mg UNSCH PRN SL 08/20/17 19:00 (Catapres) 0.1 mg UNSCH PRN PO 08/20/17 19:00 (Epogen Inj) 4,000 units UNSCH PRN IV PUSH 08/20/17 19:00 08/23/17 12:15 (Gelfoam 12 Mm/7 Mm Top) 1 foam UNSCH PRN TOP 08/20/17 19:00 08/23/17 12:15 Diltiazem HCl 125 mg/Sodium Chloride 125 ml @ 5 mls/hr TITRATE PRN IV 08/21/17 21:45 08/22/17 22:14 (Lipitor) 10 mg HS PO 08/23/17 21:00 (Maykel Gonzalez) Exam I&O / VS 08/23/17 08/23/17 08/24/17 15:00 23:00 07:00 Intake Total 200 ml Output Total 1300 ml Balance -1100 ml Intake Oral 200 ml Output Urine Total 300 ml Hemodialysis 1000 ml # Bowel Movements 0 Vital Signs Date Time Temp Pulse Resp B/P (MAP) Pulse Ox O2 Delivery O2 Flow Rate FiO2 08/23/17 15:54 92 21 08/23/17 12:16 95.6 77 16 118/56 (76) 94 08/23/17 08:22 96 21 08/23/17 08:00 97.7 148 20 118/61 (80) 95 08/23/17 04:00 97.5 130 20 100/62 (75) 96 08/23/17 03:46 129 08/23/17 00:00 97.8 118 20 141/64 (89) 94 08/22/17 23:00 114 08/22/17 22:14 78 119/71 08/22/17 20:08 93 21 08/22/17 20:00 97.9 66 17 119/61 (80) 95 08/22/17 19:40 68 08/22/17 19:00 Room Air General: Alert and Oriented, No acute distress Eye: PERRL, EOMI Respiratory: Lungs CTA, Non-labored respirations Cardiology: Normal rate, Regular Rhythm Musculoskeletal: ROM Neurologic: Alert, Oriented, Normal sensory, CN II-XII intact, Normal DTR's Psychiatric: Cooperative, Appropriate mood & affect Exam Comments Moves all extremities to gravity, speech is fluent, cognitive function within normal variation, no drift, plantar flexor, no dysmetria (Maykel Gonzalez) Review/Management Diagnosis/Plan: (1) Atrial fibrillation ICD Codes: I48.91 - Unspecified atrial fibrillation Status: Acute Plan: Per cardiology Check angiogram of the head Status post coiling 7 years ago, anticoagulate if no significant pathology on pending angiogram (2) ESRD (end stage renal disease) ICD Codes: N18.6 - End stage renal disease Status: Chronic Plan: Per nephrology Cannot obtain contrast studies (3) DM (diabetes mellitus) ICD Codes: E11.9 - Type 2 diabetes mellitus without complications Status: Chronic Plan: Glycemic control per attending (4) Aneurysm of basilar artery ICD Codes: I72.5 - Aneurysm of other precerebral arteries Status: Chronic Plan: Patient status post coiling 7 years ago MR angiogram of the head (Maykel Gonzalez) Addendum Remarks addendum:pt seen and d/w with PA pt has hx of aneurysm?basilar s/p coiling-I was told by nursing staff that the pt's daughter stated it was a [place] coil and is not mri/a compatible-hence mra was d/c'd last ct brain earlier part of July was unremsrkable,without a bleed etc. given her hx a.fib and stroke risk- if needed she should be placed on antiplatelets or AC defer choice to cardiology. (Cornelia Parada MD) Maykel Gonzalez Aug 23, 2017 16:42 Cornelia Parada MD Aug 23, 2017 17:11
[2017-08-23] MEDS: PANTOPRAZOLE SODIUM 40 MG VIAL IV PUSH SCH (17:08)
[2017-08-23] MEDS: DOCUSATE SODIUM 100 MG CAP PO SCH (21:00)
[2017-08-23] MEDS: ATORVASTATIN 10 MG TAB PO SCH (22:06)
[2017-08-23] MEDS: ALPRAZolam 1 MG TAB PO PRN (22:06)
[2017-08-24] VITALS (9 sets, daily range): BP systolic 132–153; BP diastolic 61–89; PULSE 66–150; RESP 18–20; TEMP 97.5–98.3; O2SAT 91–97
[2017-08-24] MEDS: DILTIAZEM 125 MG/NS 100 ML IV PRN ×4 (00:30→08:44)
[2017-08-24] MEDS: methylPREDNISolone SOD SUCC 125 MG/2 ML VIAL IV PUSH SCH ×2 (01:05→06:13)
[2017-08-24] MEDS ORDERED: METOPROLOL TARTRATE 25 MG TAB PO ONE (06:15)
[2017-08-24] MEDS: HEPARIN SODIUM - SQ 10,000 UNITS/ML VIAL SQ SCH ×2 (06:19→16:00)
[2017-08-24] MEDS: RESP: ALBUTEROL 2.5 MG/IPRATROPIUM 0.5 MG NEB (SCH) NEB ×3 (08:03→19:18)
[2017-08-24] MEDS: DOCUSATE SODIUM 50 MG/SENNA 8.6 MG TAB PO SCH ×2 (09:00→21:00)
[2017-08-24] MEDS: CALCIUM ACETATE 667 MG CAP PO SCH ×3 (09:30→18:31)
[2017-08-24] MEDS ORDERED: predniSONE 20 MG TAB PO ONE (10:45)
[2017-08-24] MEDS ORDERED: RESP: ALBUTEROL 2.5 MG/IPRATROPIUM 0.5 MG NEB (PRN) NEB (10:45)
[2017-08-24] MEDS ORDERED: LEVOFLOXACIN 750 MG TAB PO ONE (10:45)
[2017-08-24] MEDS: MIDODRINE 5 MG TAB PO SCH ×3 (11:14→18:00)
[2017-08-24] MEDS: DILTIAZEM HCL 60 MG TAB PO SCH ×2 (12:00→18:31)
[2017-08-24] MEDS: FLUoxetine HCL 20 MG CAP PO SCH (12:10)
[2017-08-24] MEDS: GABAPENTIN 100 MG CAP PO SCH ×2 (12:10→21:28)
[2017-08-24] MEDS: buPROPion HCL 150 MG EXTENDED RELEASE TAB PO SCH (12:11)
[2017-08-24] MEDS: METOPROLOL TARTRATE 25 MG TAB PO SCH ×2 (13:38→21:31)
--- NOTE | 2017-08-24 14:08 | HHI.NPPN ---
Subjective History of Present Illness 66 year old female with ESRD CHF COPD Additional Remarks Patient usually dialyzes TTS. She was given an extra treatment yesterday. Review of Systems General Constitutional: Fatigue Respiratory Lungs: SOB Objective Data Data Vital Signs Date Time Temp Pulse Resp B/P (MAP) Pulse Ox O2 Delivery O2 Flow Rate FiO2 08/24/17 12:00 97.9 83 20 153/69 (97) 97 08/24/17 08:44 120 136/71 08/24/17 08:05 95 08/24/17 08:00 98.0 120 20 136/77 (96) 91 08/24/17 04:00 Room Air 08/24/17 04:00 98.1 150 20 137/89 (105) 92 08/24/17 03:48 148 08/24/17 00:30 98.3 122 18 133/61 (85) 93 08/24/17 00:30 122 133/61 08/24/17 00:00 Room Air 08/23/17 23:55 71 08/23/17 23:43 95 08/23/17 22:30 Room Air 08/23/17 20:00 74 08/23/17 20:00 98.5 70 20 129/68 (88) 95 08/23/17 16:00 98.1 75 20 161/72 (101) 94 08/23/17 15:54 92 21 -: 08/23/17 0613 08/23/17 0613 Physical Exam Eyes Eye Exam: Pupils Equal Pulmonary Resp Exam: Decreased Bases Cardiology CV Exam: Regular Gastrointestinal/Abdomen GI Exam: Soft, Non-Tender, Positive Bowel Movement Extremeties Extremities Exam: No Edema Assessment/Plan Problem List: (1) ESRD (end stage renal disease) ICD Codes: N18.6 - End stage renal disease Status: Chronic Plan: Usually dialyzes TTS, we will dialyze her today to bring her back to her outpatient schedule. Monitor fluid and electrolytes. (2) COPD with acute exacerbation ICD Codes: J44.1 - Chronic obstructive pulmonary disease with (acute) exacerbation Status: Acute Plan: Improved. (3) DM (diabetes mellitus) ICD Codes: E11.9 - Type 2 diabetes mellitus without complications Status: Chronic Plan: continue insulin coverage. (4) Hyperkalemia ICD Codes: E87.5 - Hyperkalemia Plan: give Kayexalate (5) Atrial fibrillation ICD Codes: I48.91 - Unspecified atrial fibrillation Status: Acute Plan: Received amiodarone. Rate is controlled. Martin Mills MD Aug 24, 2017 14:08
--- NOTE | 2017-08-24 14:31 | RADRPT ---
EXAM DATE/TIME: 08/24/2017 13:57 [facility] COMPARISON: CT BRAIN W/O CONTRAST, August 06, 2017, 19:05. INDICATIONS : Headache, worse on right side. RADIATION DOSE: 56.35 CTDIvol (mGy) MEDICAL HISTORY : Aneurysm, intracranial. Renal failure, chronic. Cardiovascular diseaseHypertension, lung cancer. SURGICAL HISTORY : Intracranial aneurysm repair. ENCOUNTER: Initial ACUITY: 1 day PAIN SCALE: 5/10 LOCATION: Right frontal TECHNIQUE: Multiple contiguous axial images were obtained of the head. Using automated exposure control and adj ustment of the mA and/or kV according to patient size, radiation dose was kept as low as reasonably a chievable to obtain optimal diagnostic quality images. DICOM format image data is available electro nically for review and comparison. FINDINGS: CEREBRUM: Streak artifact is seen from a coil pack within the suprasellar cistern. The ventricles are normal fo r age. No evidence of midline shift, mass lesion, hemorrhage or acute infarction. No extra-axial fl uid collections are seen. POSTERIOR FOSSA: The cerebellum and brainstem are intact. The 4th ventricle is midline. The cerebellopontine angle i s unremarkable. EXTRACRANIAL: The visualized portion of the orbits is intact. SKULL: The calvaria is intact. No evidence of skull fracture. CONCLUSION: 1. No acute intracranial abnormality. 2. Prior coil embolization involving the suprasellar cistern. Claudy Rucker Jr., MD on August 24, 2017 at 14:29 Board Certified Radiologist. This report was verified electronically.
--- NOTE | 2017-08-24 14:56 | RADRPT ---
EXAM DATE/TIME: 08/24/2017 13:59 [facility] COMPARISON: No previous studies available for comparison. INDICATIONS : Headache, history of aneurysm. IV CONTRAST: 74 cc Omnipaque 350 (iohexol) IV ; Cumulative dose for multiple exams. RADIATION DOSE: 9.77 CTDIvol (mGy) ; Combined studies MEDICAL HISTORY : Aneurysm, intracranial. Cardiovascular disease Hypertension.Lung cancer, renal failure. SURGICAL HISTORY : Intracranial aneurysm repair. ENCOUNTER: Initial ACUITY: 1 day PAIN SCALE: 5/10 LOCATION: Right frontal TECHNIQUE: Volumetric scanning was performed using a multi-row detector CT scanner. The data was post processed with a variety of visualization algorithms including full volume maximum intensity projection, multi -planar sliding thin slab reformation, curved planar reformation, and surface rendering techniques. Using automated exposure control and adjustment of the mA and/or kV according to patient size, radiat ion dose was kept as low as reasonably achievable to obtain optimal diagnostic quality images. DICO M format image data is available electronically for review and comparison. FINDINGS: Patient has had previous coiling of bibasilar tip aneurysm. The coils collects at the artifact Acros s the Cir., Hoffmann. CT angiography is of very poor exam in this patient to exclude recurrent or resi dual aneurysm. There is poor filling of the right anterior cerebral artery, nonspecific As artery is patent but mostly obscured by artifact.. CONCLUSION: Severely limited exam secondary to aneurysm coiling. Recurrent or residual aneurysm can't be excluded. Because of the amount of artifact from coiling CTA is of very limited value. Blayne Sheets MD FACR on August 24, 2017 at 14:52 Board Certified Radiologist. This report was verified electronically.
--- NOTE | 2017-08-24 15:22 | RADRPT ---
EXAM DATE/TIME: 08/24/2017 13:59 [facility] COMPARISON: No previous studies available for comparison. INDICATIONS : Headache, history of aneurysm. IV CONTRAST: 74 cc Omnipaque 350 (iohexol) IV ; Cumulative dose for multiple exams. RADIATION DOSE: 9.77 CTDIvol (mGy) ; Combined studies MEDICAL HISTORY : Aneurysm, intracranial. Cardiovascular disease Hypertension.Renal failure, lung cancer. SURGICAL HISTORY : Inguinal hernia repair. ENCOUNTER: Initial ACUITY: 1 day PAIN SCALE: 0/10 LOCATION: neck Elevated flow velocities and ICA/CCA ratios have been found to correlate with increased degrees of vessel stenosis, calculated as percentage of diameter relative to a normal segment of distal ICA/CCA. TECHNIQUE: Volumetric scanning was performed using a multirow detector CT scanner. The data was post processed with a variety of visualization algorithms including full-volume maximum intensity projection, multip lanar sliding thin-slab reformation, curved-planar reformation, and surface-rendering techniques. Us ing automated exposure control and adjustment of the mA and/or kV according to patient size, radiatio n dose was kept as low as reasonably achievable to obtain optimal diagnostic quality images. DICOM f ormat image data is available electronically for review and comparison. FINDINGS: AORTIC ARCH: Branching pattern of the great vessels is normal. The significant tortuosity is present. RIGHT CAROTID: Minimal calcification proximal internal carotid negative for hemodynamically significant stenosis. LEFT CAROTID: Minimal calcified plaque with associated soft plaque negative for hemodynamically significant stenosi s. VERTEBRALS: The vertebral arteries have a symmetric diameter. No stenotic lesions are seen. CONCLUSION: Negative for hemodynamically significant carotid stenosis. Blayne Sheets MD FACR on August 24, 2017 at 15:20 Board Certified Radiologist. This report was verified electronically.
--- NOTE | 2017-08-24 15:56 | HHI.PR ---
Subjective Remarks Ms. Hylton is currently doing well. Denies any shortness of breath, fever or chills. Objective Vitals Vital Signs Date Time Temp Pulse Resp B/P (MAP) Pulse Ox O2 Delivery O2 Flow Rate FiO2 08/24/17 12:00 97.9 83 20 153/69 (97) 97 08/24/17 08:44 120 136/71 08/24/17 08:05 95 08/24/17 08:00 98.0 120 20 136/77 (96) 91 08/24/17 04:00 Room Air 08/24/17 04:00 98.1 150 20 137/89 (105) 92 08/24/17 03:48 148 08/24/17 00:30 98.3 122 18 133/61 (85) 93 08/24/17 00:30 122 133/61 08/24/17 00:00 Room Air 08/23/17 23:55 71 08/23/17 23:43 95 08/23/17 22:30 Room Air 08/23/17 20:00 74 08/23/17 20:00 98.5 70 20 129/68 (88) 95 08/23/17 16:00 98.1 75 20 161/72 (101) 94 08/23/17 15:54 92 21 I/O 08/23/17 08/23/17 08/23/17 08/24/17 08/24/17 08/24/17 07:00 15:00 23:00 07:00 15:00 23:00 Intake Total 200 ml 120 ml 345 ml Output Total 1300 ml Balance -1100 ml 120 ml 345 ml Intake Oral 200 ml 120 ml 220 ml IV Total 125 ml Output Urine Total 300 ml Hemodialysis 1000 ml # Voids 3 1 # Bowel Movements 0 1 Result Diagram: 08/23/17 0613 08/23/17 0613 Imaging Last Impressions Head CTA 08/24/17 0000 Signed Impressions: Service Date/Time: Thursday, August 24, 2017 13:59 - CONCLUSION: Severely limited exam secondary to aneurysm coiling. Recurrent or residual aneurysm can't be excluded. Because of the amount of artifact from coiling CTA is of very limited value. Blayne Sheets MD FACR Head CT 08/24/17 0000 Signed Impressions: Service Date/Time: Thursday, August 24, 2017 13:57 - CONCLUSION: 1. No acute intracranial abnormality. 2. Prior coil embolization involving the suprasellar cistern. Claudy Rucker Jr., MD Chest X-Ray 08/20/17 1109 Signed Impressions: Service Date/Time: Sunday, August 20, 2017 11:45 - CONCLUSION: Interstitial vascular prominence which may represent early congestion. No evidence of consolidating airspace disease. Stable left lung scarring. Les Espinosa MD Objective Remarks GENERAL: Alert, oriented 3, NAD. SKIN: Warm and dry. HEAD: Normocephalic. EYES: No scleral icterus. No injection or drainage. NECK: Supple, trachea midline. No JVD or lymphadenopathy. CARDIOVASCULAR: Regular rate and rhythm without murmurs, gallops, or rubs. RESPIRATORY: Poor air entry. Mild wheezes present. No accessory muscle use. GASTROINTESTINAL: Abdomen soft, non-tender, nondistended. MUSCULOSKELETAL: No cyanosis, or edema. BACK: Nontender without obvious deformity. No CVA tenderness. Procedures None A/P Assessment and Plan Ms. Hylton is a 66-year-old female with a history of COPD who presented to the emergency department on 08/20/2017 due to cough, congestion, chest pain, shortness of breath. She reported aching abdominal pain localized in the right chest. Patient also has ESRD. Receives dialysis Saturday and Saturday. - COPD exacerbation -Patient is an ESRD patient receiving dialysis. -We will switch antibiotics to Levaquin 750 q. other day. -Start DuoNeb scheduled and as needed. -Xanax for anxiety. -Chest pain -Cardiology is following patient. -Cardiology recommends cardiac catheterization. However due to history of brain aneurysm, neurology consult was obtained. -Per neurology, we obtained a CTA of the brain. The study was not optimal due to artifacts. Recurrent aneurysm was not excluded. -Patient's aneurysm was about 7 years ago. It was coiled. No recent major bleed including intracranial hemorrhage. -Although there is some risk in doing cardiac catheterization which involves antithrombotic agents, the risk should not be excessive. -If indicated by cardiology evaluation, patient should be able to undergo cardiac catheterization. -ESRD -nephrology following. Continue hemodialysis. -History of brain aneurysm status post coiling. Full code. Heparin subcutaneous for DVT prophylaxis. Discussed with cardiology and neurology. Elise Khan DO Aug 24, 2017 15:56
--- NOTE | 2017-08-24 16:51 | HHI.PR ---
Subjective Remarks 66 YOWF with ESRD,COPD exac Undergoing HD Has congestion Mild wheezing and SOB No CP or palpitation Objective Vital Signs Vital Signs Date Time Temp Pulse Resp B/P (MAP) Pulse Ox O2 Delivery O2 Flow Rate FiO2 08/24/17 12:00 97.9 83 20 153/69 (97) 97 08/24/17 08:44 120 136/71 08/24/17 08:05 95 08/24/17 08:00 98.0 120 20 136/77 (96) 91 08/24/17 04:00 Room Air 08/24/17 04:00 98.1 150 20 137/89 (105) 92 08/24/17 03:48 148 08/24/17 00:30 98.3 122 18 133/61 (85) 93 08/24/17 00:30 122 133/61 08/24/17 00:00 Room Air 08/23/17 23:55 71 08/23/17 23:43 95 08/23/17 22:30 Room Air 08/23/17 20:00 74 08/23/17 20:00 98.5 70 20 129/68 (88) 95 I/O 08/23/17 08/23/17 08/23/17 08/24/17 08/24/17 08/24/17 07:00 15:00 23:00 07:00 15:00 23:00 Intake Total 200 ml 120 ml 345 ml Output Total 1300 ml Balance -1100 ml 120 ml 345 ml Intake Oral 200 ml 120 ml 220 ml IV Total 125 ml Output Urine Total 300 ml Hemodialysis 1000 ml # Voids 3 1 # Bowel Movements 0 1 Result Diagram: 08/23/1761208/23/17 06 Objective Remarks GENERAL: MBMN WF,NAD SKIN: Warm and dry. HEAD: Normocephalic. EYES: No scleral icterus. No injection or drainage. NECK: Supple, trachea midline. No JVD or lymphadenopathy. CARDIOVASCULAR: Regular rate and rhythm without murmurs, gallops, or rubs. RESPIRATORY: Breath sounds equal bilaterally. No accessory muscle use. Exp rhonchi GASTROINTESTINAL: Abdomen soft, non-tender, nondistended. MUSCULOSKELETAL: No cyanosis, or edema. BACK: Nontender without obvious deformity. No CVA tenderness. A/P Assessment and Plan COPD exac ESRD Bronchitis Anemia PLAN PO Prednisone Aerosol nebs Symbicort 2 puffs bid Cont Abx Axel Rider MD Aug 24, 2017 16:51
--- NOTE | 2017-08-24 16:54 | PD.CARD.PN ---
Subjective Subjective Remarks alert in nad Objective Medications Current Medications Medications (Trade) Dose Ordered Sig/Carlos Route Start Time Stop Time Status Last Admin (Xanax) 1 mg BID PRN PO 08/20/17 15:45 08/23/17 22:06 (Phoslo) 667 mg TIDPC PO 08/20/17 18:30 08/24/17 13:38 (Colace) 200 mg HS PO 08/20/17 21:00 08/20/17 21:48 (PROzac) 20 mg DAILY PO 08/21/17 09:00 08/24/17 12:10 (Neurontin) 100 mg BID PO 08/20/17 21:00 08/24/17 12:10 (Robitussin Liq) 200 mg Q4H PRN PO 08/20/17 15:45 08/21/17 13:52 (Proamatine) 10 mg TID PO 08/20/17 18:00 08/24/17 13:39 (Roxicodone) 10 mg Q6HR PRN PO 08/20/17 15:45 08/24/17 11:27 (Tylenol) 650 mg Q4H PRN PO 08/20/17 16:00 (Zofran Inj) 4 mg Q6H PRN IVP 08/20/17 16:00 08/22/17 12:17 (Heparin Inj) 5,000 units Q12H SQ 08/20/17 16:00 08/24/17 06:19 (Narcan Inj) 0.4 mg UNSCH PRN IV PUSH 08/20/17 16:00 (Marixa-Colace) 1 tab BID PO 08/20/17 21:00 08/24/17 09:00 (Milk Of Magnesia Liq) 30 ml Q12H PRN PO 08/20/17 16:00 (Senokot) 17.2 mg Q12H PRN PO 08/20/17 16:00 (Dulcolax Supp) 10 mg DAILY PRN RECTAL 08/20/17 16:00 (Lactulose Liq) 30 ml DAILY PRN PO 08/20/17 16:00 (Catapres) 0.1 mg Q6H PRN PO 08/20/17 16:00 08/20/17 17:02 (Protonix Inj) 40 mg Q24H IV PUSH 08/20/17 16:00 08/23/17 17:08 Sodium Chloride 1,000 ml @ 0 mls/hr Q0M PRN OTHER 08/20/17 18:51 (Heparin Inj) 8,000 units UNSCH PRN IV FLUSH 08/20/17 19:00 Sodium Chloride 1,000 ml @ 200 mls/hr Q5H PRN IV 08/20/17 18:51 Sodium Chloride 1,000 ml @ 0 mls/hr Q0M PRN OTHER 08/20/17 18:51 (Mannitol Inj) 12.5 gm UNSCH PRN IV 08/20/17 19:00 Albumin Human 100 ml @ 60 mls/hr UNSCH PRN IV 08/20/17 19:00 (NS Flush) 5 ml UNSCH PRN IV FLUSH 08/20/17 19:00 08/23/17 12:03 (Zofran Inj) 4 mg UNSCH PRN IV PUSH 08/20/17 19:00 08/23/17 12:16 (Tylenol) 650 mg UNSCH PRN PO 08/20/17 19:00 08/21/17 23:28 (Benadryl) 25 mg UNSCH PRN PO 08/20/17 19:00 (Nitrostat Sl) 0.4 mg UNSCH PRN SL 08/20/17 19:00 (Catapres) 0.1 mg UNSCH PRN PO 08/20/17 19:00 (Epogen Inj) 4,000 units UNSCH PRN IV PUSH 08/20/17 19:00 08/23/17 12:15 (Gelfoam 12 Mm/7 Mm Top) 1 foam UNSCH PRN TOP 08/20/17 19:00 08/23/17 12:15 Diltiazem HCl 125 mg/Sodium Chloride 125 ml @ 5 mls/hr TITRATE PRN IV 08/21/17 21:45 08/24/17 08:44 (Lipitor) 10 mg HS PO 08/23/17 21:00 08/23/17 22:06 (Deltasone) 20 mg BID PO 08/24/17 21:00 (Levaquin) 750 mg EVERY OTHER DAY PO 08/26/17 09:00 (Duoneb Neb) 1 ampule Q6HR WHILE AWAKE NEB NEB 08/24/17 14:00 08/24/17 12:29 (Duoneb Neb) 1 ampule Q4HR NEB PRN NEB 08/24/17 10:45 (Cardizem) 60 mg Q6HR PO 08/24/17 12:00 (Lopressor) 25 mg Q8HR PO 08/24/17 14:00 08/24/17 13:38 (Wellbutrin Sr) 150 mg DAILY PO 08/25/17 09:00 Vital Signs / I&O Vital Signs Date Time Temp Pulse Resp B/P (MAP) Pulse Ox O2 Delivery O2 Flow Rate FiO2 08/24/17 12:00 97.9 83 20 153/69 (97) 97 08/24/17 08:44 120 136/71 08/24/17 08:05 95 08/24/17 08:00 98.0 120 20 136/77 (96) 91 08/24/17 04:00 Room Air 08/24/17 04:00 98.1 150 20 137/89 (105) 92 08/24/17 03:48 148 08/24/17 00:30 98.3 122 18 133/61 (85) 93 08/24/17 00:30 122 133/61 08/24/17 00:00 Room Air 08/23/17 23:55 71 08/23/17 23:43 95 08/23/17 22:30 Room Air 08/23/17 20:00 74 08/23/17 20:00 98.5 70 20 129/68 (88) 95 I/O 08/23/17 08/23/17 08/23/17 08/24/17 08/24/17 08/24/17 07:00 15:00 23:00 07:00 15:00 23:00 Intake Total 200 ml 120 ml 345 ml Output Total 1300 ml Balance -1100 ml 120 ml 345 ml Intake Oral 200 ml 120 ml 220 ml IV Total 125 ml Output Urine Total 300 ml Hemodialysis 1000 ml # Voids 3 1 # Bowel Movements 0 1 Laboratory GENERAL: SKIN: Warm and dry. HEAD: Normocephalic. EYES: No scleral icterus. No injection or drainage. NECK: Supple, trachea midline. No JVD or lymphadenopathy. CARDIOVASCULAR: Regular rate and rhythm without murmurs, gallops, or rubs. RESPIRATORY: Breath sounds equal bilaterally. No accessory muscle use. GASTROINTESTINAL: Abdomen soft, non-tender, nondistended. MUSCULOSKELETAL: No cyanosis, or edema. BACK: Nontender without obvious deformity. No CVA tenderness. Imaging Last 24 hours Impressions Neck CTA 08/24/17 0000 Signed Impressions: Service Date/Time: Thursday, August 24, 2017 13:59 - CONCLUSION: Negative for hemodynamically significant carotid stenosis. Blayne Sheets MD FACR Head CTA 08/24/17 Signed Impressions: Service Date/Time: Thursday, August 24, 2017 13:59 - CONCLUSION: Severely limited exam secondary to aneurysm coiling. Recurrent or residual aneurysm can't be excluded. Because of the amount of artifact from coiling CTA is of very limited value. Blayne Sheets MD FACR Head CT 08/24/17 Signed Impressions: Service Date/Time: Thursday, August 24, 2017 13:57 - CONCLUSION: 1. No acute intracranial abnormality. 2. Prior coil embolization involving the suprasellar cistern. Claudy Rucker Jr., MD Assessment and Plan Problem List: (1) Unstable angina ICD Codes: I20.0 - Unstable angina (2) CHF (congestive heart failure) ICD Codes: I50.9 - Heart failure, unspecified (3) COPD (chronic obstructive pulmonary disease) ICD Codes: J44.9 - Chronic obstructive pulmonary disease, unspecified Status: Chronic (4) Shortness of breath ICD Codes: R06.02 - Shortness of breath (5) Chronic kidney disease ICD Codes: N18.9 - Chronic kidney disease, unspecified Status: Chronic (6) Atrial fibrillation ICD Codes: I48.91 - Unspecified atrial fibrillation Status: Acute (7) DM (diabetes mellitus) ICD Codes: E11.9 - Type 2 diabetes mellitus without complications Status: Chronic (8) ESRD (end stage renal disease) ICD Codes: N18.6 - End stage renal disease Status: Chronic (9) COPD with acute exacerbation ICD Codes: J44.1 - Chronic obstructive pulmonary disease with (acute) exacerbation Status: Acute (10) Normocytic anemia ICD Codes: D64.9 - Anemia, unspecified Status: Chronic Assessment and Plan 1.) USA/CAD - patient consents to cath, d/w Dr Parada, cta brain uninterpretable , she is unable to clear for simultaneous use of aspirin, plavix, heparin, 2b3a inhibitor due h/o cerebral aneurysm s/p stent capping; she has cleared patient for use of coumadin or noac, she rec neurosurgery consult, continuet lipitor 10 mg hs 2.) Afib - continue chente reddy, f/u neurology recs for Anshul Gupta MD Aug 24, 2017 16:54
[2017-08-24] MEDS: PANTOPRAZOLE SODIUM 40 MG VIAL IV PUSH SCH (18:31)
[2017-08-24] MEDS: DOCUSATE SODIUM 100 MG CAP PO SCH (21:00)
[2017-08-24] MEDS: BUDESONIDE-FORMOTEROL 80/4.5 MCG INHALER INH SCH (21:28)
[2017-08-24] MEDS: predniSONE 20 MG TAB PO SCH (21:28)
[2017-08-24] MEDS: ATORVASTATIN 10 MG TAB PO SCH (21:28)
[2017-08-25] VITALS (17 sets, daily range): BP systolic 141–167; BP diastolic 61–83; PULSE 50–65; RESP 16–20; TEMP 97.2–98; O2SAT 93–96
[2017-08-25] MEDS: DILTIAZEM HCL 60 MG TAB PO SCH ×4 (00:01→18:00)
[2017-08-25] MEDS: ALPRAZolam 1 MG TAB PO PRN ×2 (00:01→21:40)
[2017-08-25] MEDS: HEPARIN SODIUM - SQ 10,000 UNITS/ML VIAL SQ SCH ×2 (04:55→16:41)
[2017-08-25] MEDS: METOPROLOL TARTRATE 25 MG TAB PO SCH ×3 (04:55→21:44)
[2017-08-25] MEDS: MIDODRINE 5 MG TAB PO SCH ×2 (09:04→13:00)
[2017-08-25] MEDS: CALCIUM ACETATE 667 MG CAP PO SCH ×3 (09:04→18:30)
[2017-08-25] MEDS: predniSONE 20 MG TAB PO SCH ×2 (09:04→21:43)
[2017-08-25] MEDS: buPROPion HCL 150 MG SUSTAINED RELEASE TAB PO SCH (09:04)
[2017-08-25] MEDS: FLUoxetine HCL 20 MG CAP PO SCH (09:04)
[2017-08-25] MEDS: GABAPENTIN 100 MG CAP PO SCH ×2 (09:04→21:43)
[2017-08-25] MEDS: DOCUSATE SODIUM 50 MG/SENNA 8.6 MG TAB PO SCH ×2 (09:04→21:00)
[2017-08-25] MEDS: BUDESONIDE-FORMOTEROL 80/4.5 MCG INHALER INH SCH ×2 (09:08→21:00)
[2017-08-25] MEDS: RESP: ALBUTEROL 2.5 MG/IPRATROPIUM 0.5 MG NEB (SCH) NEB ×3 (09:43→18:59)
--- NOTE | 2017-08-25 12:07 | PD.CONS ---
[facility] Service Neurosurgery Consult Requested By Dr chau Reason for Consult Recopmmendations in regards to aneurysm and anticoagulation Primary Care Physician Alli Chau MD History of Present Illness Patient is a 66-year-old white female with history of brain aneurysm, COPD, lung cancer status post wedge resection left lung, ESRD, chronic cigarette smoker who had been admitted with exacerbation of COPD., chronic cigarette smoker who had been admitted with exacerbation of COPD, today was her dialysis today but she could not make it to dialysis Center as she was feeling weak and fatigued tired short of breath. She goes to dialysis on Saturday, and Saturdays. Apparently she lives in a custodial, who was previously hospitalized with pneumonia and discharged in stable condition. However, she had become again progressively worse, returns to the emergency room where she is hospitalized with exacerbation of her COPD. She denies history of fever, chills, hemoptysis. She does have significant congestion and chest wheezing During her admission she was noted to be in atrial fibrillation with rapid ventricular response, and neurology was consulted for opinion on anticoagulation due to her history of aneurysm. In discussing further with the patient today she noted history of brain aneurysm coiling in [place] approximately 7 years ago. At the time of evaluation she denies any headaches or visual disturbances. He denies any acute problems overnight. She is pending cardiac catheterization pending. Neurosurgical consultation was requested Past Family Social History Allergies: Coded Allergies: morphine (Verified Allergy, Severe, RASH, 08/20/17) ciprofloxacin (Verified Adverse Reaction, Intermediate, NAUSEAS, 08/20/17) codeine (Verified Adverse Reaction, Intermediate, Vertigo, 08/20/17) Past Medical History COPD CHF Hypertension Lung cancer Smoking End-stage renal disease Diabetes Brain aneurysm Past Surgical History AV fistula left arm lung wedge resection Endoscopy Rt femur repair Cholecystectomy Brain Aneurysm coiling heart cath ankle repair knee surgery Reported Medications Oxycodone (Oxycodone HCl) 10 Mg Tab 10 Mg PO Q6HR PRN Xanax (Alprazolam) 1 Mg Tab 1 Mg PO BID PRN Vitamin D3 (Cholecalciferol) 2,000 Unit Cap 2,000 Units PO DAILY Fluoxetine (Fluoxetine HCl) 20 Mg Tab 20 Mg PO DAILY Midodrine 10 Mg Tab 10 Mg PO TID Calcium Acetate (Calcium Acetate (Phosphate Bin) 667 Mg Cap 667 Mg PO TIDPC Spiriva Handihaler (Tiotropium Inh) 18 Mcg Cap 18 Mcg INH DAILY 30 Days 1 capsule = 18 mcg Colace (Docusate Sodium) 100 Mg Capsule 200 Mg PO HS Guaifenesin Liq (Guaifenesin) 100 mg/5 ML Soln 200 Mg PO Q4H PRN Ipratropium Neb (Ipratropium Hartley) 0.5 Mg/2.5 Ml Amp 0.5 Mg NEB Q6HR Albuterol Neb (Albuterol Sulfate) 2.5 Mg/3 Ml Neb 2.5 Mg NEB Q6HR PRN Breo Ellipta Inh (Fluticasone/Vilanterol) 100-25 Mcg/Act Inh 1 Puff INH DAILY Use daily at the same time. Rinse mouth after each use. Tylenol (Acetaminophen) 325 Mg Tab 650 Mg PO Q4H PRN Milk of Magnesia Liq (Magnesium Hydroxide) 400 Mg/5 Ml Susp 30 Ml PO HS PRN Nitroglycerin SL (Nitroglycerin) 0.4 Mg Subl 0.4 Mg SL DIRECTED PRN ONE TABLET UNDER THE TONGUE NEEDED FOR CHEST PAIN, MAY REPEAT EVERY FIVE MINUTES FOR A TOTAL OF 3 DOSES OR CALL 911 IF NO RELIEF Gabapentin 100 Mg Cap 100 Mg PO BID Bupropion HCl ER 24 HR (Bupropion HCl) 150 Mg Tab 150 Mg PO DAILY Proair Hfa 8.5 GM Inh (Albuterol Sulfate) 90 Mcg/Act Aer 2 Puff INH Q4HR PRN 108 mcg/actuation Lidopril Topical (Lidocaine-Prilocaine Topical) 2.5-2.5 % Cream 1 Applic TOPICAL TUTHSA PRN Apply to shunt site daily every Saturday, and Saturday 1hr prior to dialysis Zofran (Ondansetron HCl) 4 Mg Tab 4 Mg PO Q6HR PRN Dialyvite 800 (B-Complex W/ C & Folic Acid) 1 Tab 1 Tab PO DAILY Ventolin Hfa 18 GM Inh (Albuterol Sulfate) 90 Mcg/Act Aer 2 Puff INH Q4HR PRN Mucinex DM (Dextromethorphan-Guaifenesin) 30-600 Mg Tab 2 Tab PO Q12HR PRN Aspirin 81 Mg Chew 81 Mg PO DAILY Oxygen tank (Oxygen) 1 Ea Tank 2 Liter EDUARDO.CANULA HS Oxygen Concentrator Portable Gaseous 2 L/min via Nasal Cannula Continuous For 99 months Active Ordered Medications Current Medications Sodium Chloride (NS Flush) 2 ml UNSCH PRN IVF FLUSH AFTER USING IV ACCESS; Start 08/20/17 at 11:15; Stop 08/20/17 at 19:09; Status DC Methylprednisolone Sodium Succinate (SoluMEDROL INJ) 125 mg ONCE ONCE IV PUSH Last administered on 08/20/17at 11:33; Start 08/20/17 at 11:15; Stop 08/20/17 at 11:16; Status DC Albuterol/ Ipratropium (Duoneb Neb) 1 ampule Q15M INH Last administered on 08/20at 11:19; Start 08/20/17 at 11:15; Stop 08/20/17 at 11:31; Status DC Ceftriaxone Sodium 1000 mg/ Sodium Chloride 100 ml @ 200 mls/hr ONCE ONCE IV Last administered on 08/20/17at 13:38; Start 08/20/17 at 13:15; Stop 08/20/17 at 13:44; Status DC Azithromycin (Zithromax) 500 mg DAILY PO Last administered on 08/23/17at 12:02; Start 08/21/17 at 09:00; Stop 08/24/17 at 10:40; Status DC Albuterol/ Ipratropium (Duoneb Neb) 1 ampule ONCE ONCE INH Last administered on 08/20/17at 13:16; Start 08/20/17 at 13:15; Stop 08/20/17 at 13:17; Status DC Alprazolam (Xanax) 1 mg BID PRN PO ANXIETY Last administered on 08/25/17at 00:01 ; Start 08/20/17 at 15:45 Bupropion HCl (Wellbutrin Xl 24 Hr) 150 mg DAILY PO Last administered on at 12:11; Start 08/21/17 at 09:00; Stop 08/24/17 at 15:55; Status DC Calcium Acetate (Phoslo) 667 mg TIDPC PO Last administered on 08/25/17at 09:04; Start 08/20/17 at 18:30 Docusate Sodium (Colace) 200 mg HS PO Last administered on 08/20/17at 21:48; Start 08/20/17 at 21:00 Fluoxetine HCl (PROzac) 20 mg DAILY PO Last administered on 08/25/17 09:04; Start 08/21/17 at 09:00 Gabapentin (Neurontin) 100 mg BID PO Last administered on 08/25/17 09:04; Start 08/20/17 at 21:00 Guaifenesin (Robitussin Liq) 200 mg Q4H PRN PO COUGH Last administered on at 13:52; Start 08/20/17 at 15:45 Midodrine (Proamatine) 10 mg TID PO Last administered on 08/25/17 09:04; Start 08/20/17 at 18:00 Oxycodone HCl (Roxicodone) 10 mg Q6HR PRN PO PAIN SCALE 6 TO 10 Last administered on 08/24/17 11:27; Start 08/20/17 at 15:45 Sodium Chloride (NS Flush) 2 ml UNSCH PRN IV FLUSH FLUSH AFTER USING IV ACCESS ; Start 08/20/17 at 16:00; Stop 08/20/17 at 19:09; Status DC Sodium Chloride (NS Flush) 2 ml BID IV FLUSH ; Start 08/20/17 at 21:00; Stop at 21:00; Status DC Acetaminophen (Tylenol) 650 mg Q4H PRN PO TEMP > 100.4; Start 08/20/17 at 16:00 Ondansetron HCl (Zofran Inj) 4 mg Q6H PRN IVP NAUSEA OR VOMITING Last administered on 08/22/17at 12:17; Start 08/20/17 at 16:00 Heparin Sodium (Porcine) (Heparin Inj) 5,000 units Q12H SQ Last administered on 08/25/17 04:55; Start 08/20/17 at 16:00 Naloxone HCl (Narcan Inj) 0.4 mg UNSCH PRN IV PUSH SEE LABEL COMMENTS; Start at 16:00 Senna/Docusate Sodium (Marixa-Colace) 1 tab BID PO Last administered on 08/25/17 09:04; Start 08/20/17 at 21:00 Magnesium Hydroxide (Milk Of Magnesia Liq) 30 ml Q12H PRN PO Mild constipation ; Start 08/20/17 at 16:00 Sennosides (Senokot) 17.2 mg Q12H PRN PO Moderate constipation; Start 08/20/17 at 16:00 Bisacodyl (Dulcolax Supp) 10 mg DAILY PRN RECTAL SEVERE CONSITIPATION; Start at 16:00 Lactulose (Lactulose Liq) 30 ml DAILY PRN PO SEVERE CONSITIPATION; Start at 16:00 Albuterol/ Ipratropium (Duoneb Neb) 1 ampule QID NEB NEB Last administered on 08/24/17at 08:03; Start 08/20/17 at 16:00; Stop 08/24/17 at 10:40; Status DC Clonidine (Catapres) 0.1 mg Q6H PRN PO SBP>160, DBP>90 Last administered on at 17:02; Start 08/20/17 at 16:00 Methylprednisolone Sodium Succinate (SoluMEDROL INJ) 80 mg Q6HR IV PUSH Last administered on 08/24/17at 06:13; Start 08/20/17 at 18:00; Stop 08/24/17 at 10:40; Status DC Pantoprazole Sodium (Protonix Inj) 40 mg Q24H IV PUSH Last administered on at 18:31; Start 08/20/17 at 16:00 Sodium Chloride 1,000 ml @ 0 mls/hr Q0M PRN OTHER For Prime & Rinse Back; Start 08/20/17 at 18:51 Heparin Sodium (Porcine) (Heparin Inj) 8,000 units UNSCH PRN IV FLUSH WITH DIALYSIS; Start 08/20/17 at 19:00 Sodium Chloride 1,000 ml @ 200 mls/hr Q5H PRN IV WITH DIALYSIS; Start 08/20/17 at 18:51 Sodium Chloride 1,000 ml @ 0 mls/hr Q0M PRN OTHER WITH DIALYSIS; Start at 18:51 Mannitol (Mannitol Inj) 12.5 gm UNSCH PRN IV WITH DIALYSIS; Start 08/20/17 at 19:00 Albumin Human 100 ml @ 60 mls/hr UNSCH PRN IV WITH DIALYSIS; Start 08/20/17 at 19:00 Sodium Chloride (NS Flush) 5 ml UNSCH PRN IV FLUSH WITH DIALYSIS Last administered on 08/23/17 12:03; Start 08/20/17 at 19:00 Ondansetron HCl (Zofran Inj) 4 mg UNSCH PRN IV PUSH WITH DIALYSIS Last administered on 08/23/17 12:16; Start 08/20/17 at 19:00 Acetaminophen (Tylenol) 650 mg UNSCH PRN PO for headach, pain 1-10,T> 101F Last administered on 08/21/17 23:28; Start 08/20/17 at 19:00 Diphenhydramine HCl (Benadryl) 25 mg UNSCH PRN PO for hives/itching/anaphylaxis ; Start 08/20/17 at 19:00 Nitroglycerin (Nitrostat Sl) 0.4 mg UNSCH PRN SL CHEST PAIN; Start 08/20/17 at 19:00 Clonidine (Catapres) 0.1 mg UNSCH PRN PO for BP > 180/100 X 2 readings; Start 08/20/17 at 19:00 Epoetin Darío (Epogen Inj) 4,000 units UNSCH PRN IV PUSH WITH DIALYSIS Last administered on 08/23/17 12:15; Start 08/20/17 at 19:00 Gelatin (Gelfoam 12 Mm/7 Mm Top) 1 foam UNSCH PRN TOP SEE LABEL COMMENTS Last administered on 08/23/17 12:15; Start 08/20/17 at 19:00 Sodium Polystyrene Sulfonate (Kayexalate Liq) 15 gm ONCE ONCE PO Last administered on 08/20/17 21:45; Start 08/20/17 at 19:00; Stop 08/20/17 at 19:12 ; Status DC Sodium Chloride 200 ml @ 400 mls/hr BOLUS ONCE IV Last administered on 20:53; Start 08/21/17 at 20:30; Stop 08/21/17 at 20:59; Status DC Diltiazem HCl 125 mg/Sodium Chloride 125 ml @ 5 mls/hr TITRATE PRN IV Tachycardia Last administered on 08/24/17 08:44; Start 08/21/17 at 21:45 Atorvastatin Calcium (Lipitor) 10 mg ONCE ONCE PO Last administered on 17:08; Start 08/23/17 at 14:45; Stop 08/23/17 at 14:46; Status DC Atorvastatin Calcium (Lipitor) 10 mg HS PO Last administered on 08/24/17 21:28 ; Start 08/23/17 at 21:00 Metoprolol Tartrate (Lopressor) 25 mg ONCE ONCE PO Last administered on 06:13; Start 08/24/17 at 06:15; Stop 08/24/17 at 06:16; Status DC Prednisone (Deltasone) 20 mg BID PO Last administered on 08/25/17 09:04; Start 08/24/17 at 21:00 Prednisone (Deltasone) 20 mg ONCE ONCE PO Last administered on 08/24/17 12:10 ; Start 08/24/17 at 10:45; Stop 08/24/17 at 10:58; Status DC Levofloxacin (Levaquin) 750 mg EVERY OTHER DAY PO ; Start 08/26/17 at 09:00 Levofloxacin (Levaquin) 750 mg ONCE ONCE PO Last administered on 08/24/17 12: 10; Start 08/24/17 at 10:45; Stop 08/24/17 at 10:58; Status DC Albuterol/ Ipratropium (Duoneb Neb) 1 ampule Q6HR WHILE AWAKE NEB NEB Last administered on 08/25/17 09:43; Start 08/24/17 at 14:00 Albuterol/ Ipratropium (Duoneb Neb) 1 ampule Q4HR NEB PRN NEB Dyspnea; Start at 10:45 Diltiazem HCl (Cardizem) 60 mg Q6HR PO Last administered on 08/25/17 04:55; Start 08/24/17 at 12:00 Metoprolol Tartrate (Lopressor) 25 mg Q8HR PO Last administered on 08/25/17 04: 55; Start 08/24/17 at 14:00 Iohexol (Omnipaque 350 Inj) 74 ml STK-MED ONCE IVCONTRAST Last administered on 08/20/17at 15:21; Start 08/20/17 at 15:21; Stop 08/24/17 at 14:14; Status DC Bupropion HCl (Wellbutrin Sr) 150 mg DAILY PO Last administered on 3/4/18at 09: 04; Start 08/25/17 at 09:00 Budesonide/ Formoterol Fumarate (Symbicort 80-4.5 Mcg Inh) 2 puff Q12HR INH Last administered on 08/25/17at 09:08; Start 08/24/17 at 21:00 Family History His fgamily history was reviewed and was non contributory Social History No alcohol abuse. No tobbacco abuse History of smoking Physical Exam Vital Signs Vital Signs Date Time Temp Pulse Resp B/P (MAP) Pulse Ox O2 Delivery O2 Flow Rate FiO2 08/25/17 09:43 93 Nasal Cannula 21 08/25/17 08:00 97.8 64 18 152/69 (96) 94 08/25/17 04:00 65 08/25/17 04:00 98.0 65 19 145/63 (90) 94 08/25/17 04:00 Room Air 08/25/17 00:00 98.0 61 20 141/83 (102) 93 08/25/17 00:00 Room Air 08/25/17 00:00 61 08/24/17 20:00 97.5 66 19 132/76 (94) 94 08/24/17 20:00 Room Air 08/24/17 19:20 93 21 08/24/17 18:00 98.1 68 20 145/65 (91) 93 08/24/17 12:00 97.9 83 20 153/69 (97) 97 Laboratory Date/Time Source Procedure Growth Status 08/20/17 11:20 Blood Peripheral Aerobic Blood Culture - Final NO GROWTH IN 5 DAYS Complete 08/20/17 11:20 Blood Peripheral Anaerobic Blood Culture - Final NO GROWTH IN 5 DAYS Complete 08/20/17 11:20 Nasal Washing Influenza Types A,B Antigen (LIV) - Final NEGATIVE FOR FLU A AND B ANTIGEN.... Complete Result Diagram: 08/23/1713 08/23/17 06 Attending Statement Neuro. I reviewed his clinical and radiological studies Last 48 hours Impressions Neck CTA 08/24/17 0000 Signed Impressions: Service Date/Time: Thursday, August 24, 2017 13:59 - CONCLUSION: Negative for hemodynamically significant carotid stenosis. Blayne Sheets MD FACR Head CTA 08/24/17 0000 Signed Impressions: Service Date/Time: Thursday, August 24, 2017 13:59 - CONCLUSION: Severely limited exam secondary to aneurysm coiling. Recurrent or residual aneurysm can't be excluded. Because of the amount of artifact from coiling CTA is of very limited value. Blayne Sheets MD FACR Head CT 08/24/17 0000 Signed Impressions: Service Date/Time: Thursday, August 24, 2017 13:57 - CONCLUSION: 1. No acute intracranial abnormality. 2. Prior coil embolization involving the suprasellar cistern. Claudy Rucker Jr., MD Intracranial aneurysms can grow in size producing mass effect, or they can rupture producing intracranial, subarachnoid hemorrhage. The risk of aneurysm rupture depends on its size, and it is estimated to be 1 to 2% per year. Approximately one-to- two thirds of patients with ruptured aneurysms will not survive the hemorrhage or will require custodial care. I have explained to the patient that the size considered critical for a hemorrhage is 7-to-8 mm. We also discussed the treatment options for people with cerebral aneurysms including surgical treatment by clipping or endovascular coiling. The common goal of both surgical clipping and endovascular coiling is the obliteration of the aneurysm. An aneurysm is clipped through a craniotomy, where the brain and the blood vessels are accessed through an opening in the skull. During endovascular treatment coils are released into the aneurysm, the blood flow pattern within the aneurysm is altered, and the slow or sluggish remaining blood flow leads to a clot of the aneurysm. Another alternative is to undergo no treatment and medical follow up. Caprini VTE Risk Assessment Caprini VTE Risk Assessment: Mod/High Risk (score >= 2) VTE Pharm Contraindication: Active bleeding Caprini Risk Assessment Model Point Value = 1 Point Value = 2 Point Value = 3 Point Value = 5 Age 41-60 Minor surgery BMI > 25 kg/m2 Swollen legs Varicose veins or History of unexplained or recurrent spontaneous Oral contraceptives or hormone replacement Sepsis (< 1 month) Serious lung disease, including pneumonia (< 1 month) Abnormal pulmonary function Acute myocardial infarction Congestive heart failure (< 1 month) History of inflammatory bowel disease Medical patient at bed rest Age 61-74 Arthroscopic surgery Major open surgery (> 45 min) Laparoscopic surgery (> 45 min) Malignancy Confined to bed (> 72 hours) Immobilizing plaster cast Central venous access Age >= 75 History of VTE Family history of VTE Factor V Leiden Prothrombin [id number] Lupus anticoagulant Anticardiolipin antibodies Elevated serum homocysteine Heparin-induced thrombocytopenia Other congenital or acquired thrombophilia Stroke (< 1 month) Elective arthroplasty Hip, pelvis, or leg fracture Acute spinal cord injury (< 1 month) Prophylaxis Regimen Total Risk Factor Score Risk Level Prophylaxis Regimen 0-1 Low Early ambulation 2 Moderate Order ONE of the following: *Sequential Compression Device (SCD) *Heparin 5000 units SQ BID 3-4 Higher Order ONE of the following medications: *Heparin 5000 units SQ TID *Enoxaparin/Lovenox 40 mg SQ daily (WT < 150 kg, CrCl > 30 mL/min) *Enoxaparin/Lovenox 30 mg SQ daily (WT < 150 kg, CrCl > 10-29 mL/min) *Enoxaparin/Lovenox 30 mg SQ BID (WT < 150 kg, CrCl > 30 mL/min) AND/OR *Sequential Compression Device (SCD) 5 or more Highest Order ONE of the following medications: *Heparin 5000 units SQ TID (Preferred with Epidurals) *Enoxaparin/Lovenox 40 mg SQ daily (WT < 150 kg, CrCl > 30 mL/min) *Enoxaparin/Lovenox 30 mg SQ daily (WT < 150 kg, CrCl > 10-29 mL/min) *Enoxaparin/Lovenox 30 mg SQ BID (WT < 150 kg, CrCl > 30 mL/min) AND *Sequential Compression Device (SCD) There is no signs of residual neck or current bleeding from is intracranial aneurysm. He is cleared per neurosurgical standpoint to undergo cardiac catheterization and anticoagulation Pulmonary. Continue aggressive pulmonary toilette, nasotracheal suction, and breathing treatments with nebulizers. Daily PT and OT Nutrition. Tolerating Oral diet Renal. Continue to monitor closely urine output, BUN and creatinine Endocrine. Continue to Monitor serial Acu checks and SSI as needed in detail ID continue to monitor for signs of infection Continue Protonix for stress ulcer prophylaxis Continue Jace waters and SCD's for DVT prophylaxis Angelo Ortega MD Aug 25, 2017 12:07
[2017-08-25] MEDS ORDERED: XANA1TAB2 PO (12:08)
[2017-08-25] MEDS ORDERED: OXYC-395 PO (12:08)
[2017-08-25] MEDS ORDERED: METO25TA3 PO (12:08)
[2017-08-25] MEDS ORDERED: LEVA750T9 PO (12:08)
[2017-08-25] MEDS ORDERED: HEPARIN-NS/PF FLUSH BAG 2,000 ML IV FLUSH ONE (12:36)
[2017-08-25] MEDS ORDERED: MIDAZOLAM HCL 2 MG/2 ML VIAL ONE (12:59)
[2017-08-25] MEDS ORDERED: HEPARIN SODIUM - IV 10,000 UNITS/10 ML VIAL ONE (13:12)
--- NOTE | 2017-08-25 13:22 | HHI.PR ---
Subjective Remarks Follow-up for COPD exacerbation, coronary artery disease. Patient is currently doing well. No fever or chills. She is scheduled for cardiac cath today. Objective Vitals Vital Signs Date Time Temp Pulse Resp B/P (MAP) Pulse Ox O2 Delivery O2 Flow Rate FiO2 08/25/17 12:00 97.2 59 18 141/61 (87) 96 08/25/17 09:43 93 Nasal Cannula 21 08/25/17 08:00 97.8 64 18 152/69 (96) 94 08/25/17 04:00 65 08/25/17 04:00 98.0 65 19 145/63 (90) 94 08/25/17 04:00 Room Air 08/25/17 00:00 98.0 61 20 141/83 (102) 93 08/25/17 00:00 Room Air 08/25/17 00:00 61 08/24/17 20:00 97.5 66 19 132/76 (94) 94 08/24/17 20:00 Room Air 08/24/17 19:20 93 21 08/24/17 18:00 98.1 68 20 145/65 (91) 93 I/O 08/24/17 08/24/17 08/24/17 08/25/17 08/25/17 08/25/17 07:00 15:00 23:00 07:00 15:00 23:00 Intake Total 345 ml 240 ml Output Total 2000 ml 0 ml Balance 345 ml -2000 ml 240 ml Intake Oral 220 ml 240 ml IV Total 125 ml Output Urine Total 0 ml Hemodialysis 2000 ml # Voids 1 # Bowel Movements 0 Result Diagram: 08/23/17 0613 08/23/17 0613 Imaging Last Impressions Neck CTA 08/24/17 0000 Signed Impressions: Service Date/Time: Thursday, August 24, 2017 13:59 - CONCLUSION: Negative for hemodynamically significant carotid stenosis. Blayne Sheets MD FACR Head CTA 08/24/17 0000 Signed Impressions: Service Date/Time: Thursday, August 24, 2017 13:59 - CONCLUSION: Severely limited exam secondary to aneurysm coiling. Recurrent or residual aneurysm can't be excluded. Because of the amount of artifact from coiling CTA is of very limited value. Blayne Sheets MD FACR Head CT 08/24/17 0000 Signed Impressions: Service Date/Time: Thursday, August 24, 2017 13:57 - CONCLUSION: 1. No acute intracranial abnormality. 2. Prior coil embolization involving the suprasellar cistern. Claudy Rucker Jr., MD Chest X-Ray 08/20/17 1109 Signed Impressions: Service Date/Time: Sunday, August 20, 2017 11:45 - CONCLUSION: Interstitial vascular prominence which may represent early congestion. No evidence of consolidating airspace disease. Stable left lung scarring. Les Espinosa MD Objective Remarks GENERAL: Alert, oriented 3, NAD. SKIN: Warm and dry. HEAD: Normocephalic. EYES: No scleral icterus. No injection or drainage. NECK: Supple, trachea midline. No JVD or lymphadenopathy. CARDIOVASCULAR: Regular rate and rhythm without murmurs, gallops, or rubs. RESPIRATORY: Poor air entry. Mild wheezes present. No accessory muscle use. GASTROINTESTINAL: Abdomen soft, non-tender, nondistended. MUSCULOSKELETAL: No cyanosis, or edema. BACK: Nontender without obvious deformity. No CVA tenderness. Procedures None A/P Assessment and Plan Ms. Hylton is a 66-year-old female with a history of COPD who presented to the emergency department on 08/20/2017 due to cough, congestion, chest pain, shortness of breath. She reported aching abdominal pain localized in the right chest. Patient also has ESRD. Receives dialysis Saturday and Saturday. - COPD exacerbation -Patient is an ESRD patient receiving dialysis. -We will switch antibiotics to Levaquin 750 q. other day. -Continue DuoNeb scheduled and as needed. -Xanax for anxiety. -Chest pain -Cardiology is following patient. -Cardiology recommends cardiac catheterization. However due to history of brain aneurysm, neurology consult was obtained. -Per neurology, we obtained a CTA of the brain. The study was not optimal due to artifacts. Recurrent aneurysm was not excluded. -Patient's aneurysm was about 7 years ago. It was coiled. No recent major bleed including intracranial hemorrhage. -Although there is some risk in doing cardiac catheterization which involves antithrombotic agents, the risk should not be excessive. -I discussed with neurosurgeon Dr. Ortega who is okay for patient to undergo cardiac catheterization today. I conveyed this message to Dr. Gusman, revenue accounting manager. -ESRD -nephrology following. Continue hemodialysis. -History of brain aneurysm status post coiling. Full code. Heparin subcutaneous for DVT prophylaxis. Discussed with cardiology and neurosurgery. Discharge plan: If cardiac catheterization is unremarkable, patient can potentially be discharged to SNF today. Elise Khan DO Aug 25, 2017 1:22 pm
--- NOTE | 2017-08-25 13:52 | CATHPROC ---
[employer] HIS Report Study Information Study Number Admission Scheduled Start Study Start [id number] Aug 20 2017 3:20PM 08/25/2017 Aug 25 2017 12:27PM [place] Service Cardiac Catheterization Admit Source Facility Department Emergency department [facility] - [facility] Physician and Clinical Staff Initial Anshul Stone Paint Maker Geraldo Metzger,RN Recorder Lauren Womack,RT(R) (BS) Scrub Seema DaltonRT(R) Procedures Performed Procedure Location (Site) Vessel Name Coronary Angiograms LCA Left Coronary Coronary Angiograms RCA Right Coronary IVUS Fem Art (right) Femoral Art L Heart Cath LV Gram-hand inj. LV LV Ventricle Wire insertion Fem Art (right) Femoral Art Equipment Time Food Assembler Description Size Mfg Part Number Used/Scraped [id number] 13:19 [employer] WIRE, ASAHI PROWATER 180CM 180CM Used *[id number] 13:19 [employer] WIRE, ASAHI PROWATER 180CM 180CM Used *[id number] 13:10 BRUNO VILLARREAL SWAN JEFF CATHETER FR 7 Used *[id number] TRANSDUCER, TRUWAVE [id number] 13:00 BRUNO VILLARREAL * Used W/STOCKCOCK *[id number] [id number] *[id number] [id number] *[id number] 13:00 MEDLINE INDUSTRIES PACK, CCL CUSTOM * Used *[id number] 13:00 MEDLINE PACER PEN, SKIN DUAL W/ RULER * Used *[id number] 13:15 Artwardly MEDICAL SHEATH, FR6.5 PRELUDE 11CM FR 6.5 038ACT Used *[id number] 13:00 Artwardly MEDICAL WIRE, 3MMJ .035 180CM 180CM Used *[id number] 13:00 NAMIC MANIFOLD, 4 PORT * Used *[id number] 13:00 NYCOMED OMNIPAQUE, 350 MG, 150ML 150ML [id number] Used [id number] 13:00 GARCIA MEDICAL BLANKET,WARM AIR CCL * Used *[id number] 13:00 TERUMO MEDICAL SHEATH, FR4 TERUMO (10CM) FR 4 Used *[id number] 13:03 TERUMO MEDICAL SHEATH, FR7 TERUMO (10CM) FR 7 Used *[id number] CATHETER, [employer] [place] [id number] 13:15 VOLCANO Used IMAGING *[id number] Equipment Model, Serial, Lot Number and Expiration Data Description Model Number Serial Number Lot Number Expiration Date CATHETER, [employer] [place] [id number] 04-23-2019 IMAGING History: Allergies Allergy Reaction Cipro NAUSEAS codeine Vertigo morphine RASH *MDRO Multi-Drug Resistant Organism ciprofloxacin NAUSEAS History: Risk Factors Family History of Hypertension Dyslipidemia Previous IL Previous Heart Failure Premature CAD Yes No No Yes Yes Prior Valve Prior PCI Prior CABG Surgery No No No Cerebrovascular Peripheral Artery Chronic Lung On Dialysis Diabetes Disease Disease Disease Yes Yes No Yes No History: Symptoms/Diagnosis Selection Items Chest pain History: Stress Tests Stress or Imaging Studies Performed No History: Other Current Smoker Method Packs a Day Years Used Pack Years Yes Cigarettes 1 45 45 Labs Hgb (g/dl) Hct (%) RBC (MIL/MM3) WBC (l/cumm) Platelets (thousands) 11.60-17.00 35.00-51.00 4.00-5.90 4.00-11.00 150.00-450.00 10.5 32.2 3.5 6.7 300 Glucose (mg/dl) BUN (mg/dl) Creatinine (mg/dl) BUN:Creatinine (1:x) 74.00-106.00 7.00-18.00 0.50-1.30 10.00-20.00 196 80 8.3 9.6 Na (meq/l) K (meq/l) Cl (meq/l) CO2 (mmol/L) 136.00-145.00 3.50-5.10 98.00-107.00 21.00-32.00 134 3.9 94 22.5 PT (sec) INR (PTT:PT) 9.80-11.60 0.90-1.10 10.9 1.1 Troponin I (ng/ml) CPK-MB (ng/ML) 0.02-0.05 0.50-3.60 0.02 Not Drawn Medication Medication Total Dose (Bolus/Oral) Medication Total Dosage/Unit 1% XYLOCAINE 20 mL HEPARIN 3000 units VERSED 1 mg Medications (Bolus/Oral) Medication Time Given Dosage/Unit Administered By Reason 1% XYLOCAINE 08/25/2017 12:59:36 PM 20 mL Anshul Gusman 20 mL 1% XYLOCAINE given in lab by Anshul Gusman in Right Groin via Subcutaneous. VERSED 08/25/2017 1:00:12 PM 1 mg Geraldo Metzger 1 mg VERSED given in lab by Geraldo Metzger RN in Right Antecubital via Peripheral IV. HEPARIN 08/25/2017 1:13:36 PM 3000 units Geraldo Metzger 3000 units HEPARIN given in lab by Geraldo Metzger RN in Right Antecubital via Peripheral IV. Medication (Drip) Medication Time Given Dosage/Unit Concentration/Unit Diluent (ml) Solutio n IV Solutions 08/25/2017 12:33:16 PM 0 mL (IV) 500 NaCl .9 IV Solutions given in lab by Geraldo Metzger RN in Right Antecubital via Peripheral IV. Pump/Drip Flow = 30 ml/hr using NaCl .9. Initial Case Assessment Cardiovascular HR Rhythm NIBP Chest Pain 55 reg 163/68 2 Edema Present Skin color Skin None Normal Warm Dry Circulatory - Right Pulses Dorsalis Pedis Femoral 2 2 Scale (0,1,2,3,4,d) Scale (0,1,2,3,4,d) Circulatory - Lower Extremities Color Lower Right Color Lower Left Normal Normal Neurological State Oriented to time-place- Alert Moves all extremities person Respiration - General Respiration Rate SpO2 (%) (B/min) 20 95 Chronological Log Time Study Chronological Log 12:33:00 Patient arrived via Bed. 12:33:01 Patient Name, D.O.B, / Armband Verified By R.N. 12:33:01 Consent signed by the physician and the patient and verified by the [facility] Counsel staff. 12:33:02 Pre-op and post- op instructions given; patient acknowledges understanding of instructions. 12:33:02 Verbal Stimulation=2 Physical Stimulation=2 Airway=2 Respiration=2 TOTAL=8. (0=absent, 1=li mited, 2=present) 12:33:03 Presedation assessment performed by Parliamentary Counsel RN. 12:33:06 Patient has been NPO for less than 6Hrs. MD aware 12:33:08 Skin Breakdown none per pt 12:33:09 Patient Warmer Placed on the Table. 12:33:10 Curtis Prominences Protected 12:33:15 A # 20 IV was noted in the Antecubital (right). Grade = 0 IV Solutions given in lab by Burfield, Geraldo, RN in Right Antecubital via Peripheral IV. Pump/Dri p Flow = 30 ml/hr using 12:33:16 NaCl .9. 12:33:16 History and physical on the chart or being dictated. Assessment: Initial Case, HR=55 BPM, Rhythm=reg, GEAV=734/68 mmhg, Chest Pain=2, Edema=None, Co kerline=Normal, Skin = Warm, Dry Right Pulses: [place] Ped=2, Femoral=2 12:33:17 Lower Right Extremities: Color=Normal Lower Left Extremities: Color=Normal Neurological: State=Alert, Ox3, LAM Respiration: Resp=20 B/min, SpO2=95 % Vitals capture started with the following parameters, Patient=Adult, Interval=5 min, Initial Pr opgitq=599 mmHg, 12:36:54 Deflation Rate=5 mmHg, Cuff placed on Left Leg 12:37:31 HTUH=541/68 mmhg, SpO2=94.0 %, Pain=2, Bonny=10, Ward=2 12:42:34 HR=56 bpm, QBQZ=655/65 mmhg, SpO2=96.0 %, Resp=21 B/min, Pain=2, Bonny=10, Ward=2 12:42:56 Right groin prepped with 2% chlorhexidine, and draped after a 3 min. waiting time. 12:47:35 HR=56 bpm, XUVQ=301/67 mmhg, SpO2=95.0 %, Resp=20 B/min, Pain=2, Bonny=10, Ward=2 12:48:41 MD paged 12:49:25 Pressure channel 1 zeroed. 12:49:31 MD responded 12:50:38 Reference ECG taken 12:52:36 HR=55 bpm, UWAN=892/64 mmhg, SpO2=95.0 %, Resp=20 B/min, Pain=2, Bonny=10, Ward=2 12:56:23 MD arrived. 12:57:35 HR=56 bpm, IXIR=427/67 mmhg, SpO2=95.0 %, Resp=19 B/min, Pain=2, Bonny=10, Ward=2 Time Out. Correct patient, correct procedure, correct physician, power injector not loaded with contrast with surgical 12:59:10 team present. Time Out Concurred by and individual staff in procedure. 12:59:24 Case Start 12:59:36 20 mL 1% XYLOCAINE given in lab by Anshul Gusman in Right Groin via Subcutaneous. 13:00:12 1 mg VERSED given in lab by Geraldo Metzger, RN in Right Antecubital via Peripheral IV. 13:02:37 HR=55 bpm, ZRME=023/65 mmhg, SpO2=95.0 %, Resp=20 B/min, Pain=2, Bonny=10, Ward=2 13:03:03 Access site was Right Femoral Artery. 13:03:07 A SHEATH, FR4 TERUMO (10CM) FR 4 was advanced into the Fem Art (right) using the Percutaneo us technique. 13:03:29 Saturation: Site=Ao (Aorta) , O2=93.4 %, Hgb=10.5 gm/dl, Condition=Condition 1. Used in kell culation. 13:04:23 MD aborted right heart cath A JR 4.0 INFINITI CATHETER FR 4 was advanced over a wire. OMNIPAQUE, 350 MG, 150ML 150ML was us ed for 13:04:29 injections. Recorded Pressure: LV, HR=55, Condition=Condition 1 13:05:29 (Left Ventricle) LV 133/11/19 Recorded Pressure: LV, Ao, HR=56, Condition=Condition 1 13:05:38 (Left Ventricle) LV 118/12/11, (Aorta) Ao 146/60/92 13:05:49 The LV was manually injected with 8 cc's and visualized. OMNIPAQUE, 350 MG, 150ML 150ML use d. 13:06:09 The RCA was injected and visualized at various angles. OMNIPAQUE, 350 MG, 150ML 150ML used . 13:07:36 HR=59 bpm, IJBH=670/65 mmhg, SpO2=94.0 %, Resp=20 B/min, Pain=2, Bonny=10, Ward=2 After removing the current catheter a JL 4.0 INFINITI CATHETER FR 4 was advanced over a WIRE, 3 MMJ .035 180CM 13:07:46 180CM. Recorded Pressure: Ao, HR=58, Condition=Condition 1 13:08:35 (Aorta) Ao 149/58/90 13:08:47 The LCA was injected and visualized at various angles. OMNIPAQUE, 350 MG, 150ML 150ML used . 13:12:39 HR=57 bpm, NWTA=104/63 mmhg, SpO2=96.0 %, Resp=20 B/min, Pain=2, Bonny=10, Ward=2 13:13:36 3000 units HEPARIN given in lab by Geraldo Metzger, RN in Right Antecubital via Peripheral IV . A SHEATH, FR6.5 PRELUDE 11CM FR 6.5 was exchanged in the Fem Art (right). This was necessary in order to 13:13:42 accomodate a larger catheter. 13:15:11 MD called for STAT ECHO 13:17:40 HR=56 bpm, JFNZ=641/53 mmhg, SpO2=94.0 %, Resp=19 B/min, Pain=2, Bonny=10, Ward=2 13:19:30 An CATHETER, [employer] [place] [facility] [facility]AG[facility] was advanced through the lesion. Images saved onto IVUS hard drive 13:19:35 A WIRE, [employer]on[employer] PROWATER 180CM 180CM was inserted via Fem Art (right). 13:21:58 Activated Clotting Time Drawn 13:22:37 HR=56 bpm, LSQH=153/62 mmhg, SpO2=95.0 %, Resp=19 B/min, Pain=2, Bonny=10, Ward=2 13:26:30 IVUS in progress using CATHETER, [facility] [place] [facility] 13:26:51 ACT (Normal Range 90-180) = 232 13:27:36 HR=57 bpm, JCKH=689/63 mmhg, SpO2=94.0 %, Resp=20 B/min, Pain=2, Bonny=10, Ward=2 13:28:09 Wire removed 13:28:15 Catheter was removed 13:28:20 Case End 13:28:25 Catheter(s) removed without difficulty 13:28:29 In the Fem Art (right) the SHEATH, FR6.5 PRELUDE 11CM FR 6.[address] by Seema Dalton, RT(R). 13:28:39 No case complications noted. 13:28:42 Bedside Report will be given. 13:28:46 A Left Heart Cath was performed. 13:30:13 STAT ECHO in progress. 13:32:37 HR=57 bpm, WFZT=972/65 mmhg, SpO2=95.0 %, Resp=19 B/min, Pain=2, Bonny=10, Ward=2 13:35:30 Sterile dressing applied to site 13:37:38 WTWR=906/62 mmhg, SpO2=97.0 %, Pain=2, Bonny=10, Ward=2 13:40:01 Vitals capture stopped. 13:41:17 Patient moved to stretcher End Study - Contrast Media Used In Study Contrast Total Opened (mL) Total Used (mL) Total Wasted (mL) Omnipaque 75 75 0 End Study - Maximum Contrast Load Max Contrast Load (mL) 35.3 End Study - Radiation Exposure Fluoro Time (minutes) 4.7 End Study - Patient Disposition Complications Transferred To Interventional Outcome No Telemetry Bed No attempt made
[2017-08-25] MEDS ORDERED: SODIUM CHLORIDE 0.9% FLUSH 10 ML FLUSH IV FLUSH PRN (14:00)
[2017-08-25] MEDS ORDERED: BACITRACIN OINT 0.9 GM PKT TOP ONE (14:00)
[2017-08-25] MEDS ORDERED: MISC INFORMATION XX ONE (14:00)
--- NOTE | 2017-08-25 14:31 | MR ---
cc: Anshul Gusman MD PROCEDURE: Left heart catheterization, left ventriculography, coronary angiography, IVUS of the left main coronary artery. 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 INDICATION: Patient was brought to the cardiac catheterization laboratory and prepped and draped in the usual sterile fashion, 10 mL of 1% lidocaine was used to locally anesthetize the right common femoral artery. A 4 Burkinan sheath placed in the right common femoral artery. A 4 Burkinan JR4 and JL4 were used to perform left and right coronary angiography and left ventriculography. FINDINGS: The LV pressure is 140/15-16. EF 65%. Right coronary artery is dominant and has a focal 40%-50% proximal stenosis and mild disease in the ytf-gs-bxyjxc segment up to 10% angiographically. The left main coronary artery has a very calcified eccentric plaque at the ostium. There appears to be a 40% to perhaps 50% stenosis there. Left circumflex vessel has an ostial 20% stenosis. This is a large vessel, reference vessel diameter of 4.5-5 mm. First obtuse marginal vessel has subtle smooth stenosis in the proximal segment up to 20% angiographically. Again, it is a 4.5-5 mm reference vessel diameter. Remainder of the AV groove left circumflex vessel has no significant disease angiographically. LAD is transapical. There is a long 40%-50% proximal stenosis. First diagonal artery is small, reference vessel diameter of 1 mm. No significant disease angiographically. Second diagonal vessel is a medium size vessel, reference vessel diameter of 2.5-3 with an ostial proximal 40%-50% stenosis. This appears to be the course of the fistulous tract of the myocardium and then the left ventricular cavity seen from antegrade view. Can actually still see the remaining contrast in the myocardium, which is, over time, extravasated distally into the anterior apical wall from the vbl-tj-xqwvfc anterior apical wall where it began, which is where the second diagonal artery terminates. DISCUSSION: As the patient has been complaining of dyspnea on exertion, which is worsening, resting angina, has a history of coronary artery disease, multiple risk factors including dialysis, end-stage renal failure, diabetes mellitus, tobacco use, I did think it was medically necessary to define the minimal luminal area of the left main. Therefore, patient was given 16 units/kg of heparin. ACT was 232. A 6 Burkinan XB3.5 guide and a 0.014 [place] guidewire were placed into the distal LAD. The IVUS catheter was placed into the guide catheter where a ring-down was performed. We then did place the IVUS catheter into the proximal LAD and did a pullback. There was a large eccentric calcified plaque at the approximately 9 o'clock view extending from 8 o'clock to about 10 o'clock. Minimal luminal area was 10.4 mm2 and therefore, revascularization consideration was deferred. CONCLUSION: 1. Moderate left main and ntfq-yo-fnisdota 3-vessel coronary artery disease and right dominant system as detailed above. 2. Normal left ventricular systolic function, ejection fraction 65%. 3. Calcified eccentric plaque in the ostium of the left main with minimal luminal area at this calcified eccentric plaque of 10.4 mm2. Revascularization consideration is deferred. 4. 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 Also note that the initial cavity filled in the left ventricle. The longest length would estimate 35 mm with a maximal width of 15 mm. Over time, the contrast did appear to diffuse into what appeared to be the myocardium covering most of the distal anterolateral apical region. By the end of the case, the contrast had dissipated. We did a bedside echo just to rule out any extravasation of contrast epicardially. There was no pericardial effusion. We could not image with color Doppler or continuous wave Doppler for any flow patterns into the myocardium. Patient remained hemodynamically stable by A-line measurements throughout the entire procedure. 5. Recommend medical management of coronary artery disease and cardiac risk factor modification. MD MARY BETH Gutierrez/CARL , 01:48 PM , 02:29 PM
[2017-08-25] MEDS: cloNIDine HCL 0.1 MG TAB PO PRN (14:37)
[2017-08-25] MEDS: DILTIAZEM 125 MG/NS 100 ML IV PRN ×2 (16:36)
[2017-08-25] MEDS: PANTOPRAZOLE SODIUM 40 MG VIAL IV PUSH SCH (16:42)
--- NOTE | 2017-08-25 18:01 | HHI.PR ---
Subjective Remarks 66 YOWF with ESRD,COPD exac Undergoing HD Has congestion Mild wheezing and SOB had chest tightness had cardiac cath Objective Vital Signs Vital Signs Date Time Temp Pulse Resp B/P (MAP) Pulse Ox O2 Delivery O2 Flow Rate FiO2 08/25/17 12:00 97.2 59 18 141/61 (87) 96 08/25/17 09:43 93 Nasal Cannula 21 08/25/17 08:00 62 08/25/17 08:00 97.8 64 18 152/69 (96) 94 08/25/17 08:00 96 Room Air 21 08/25/17 04:00 65 08/25/17 04:00 98.0 65 19 145/63 (90) 94 08/25/17 04:00 Room Air 08/25/17 00:00 98.0 61 20 141/83 (102) 93 08/25/17 00:00 Room Air 08/25/17 00:00 61 08/24/17 20:00 97.5 66 19 132/76 (94) 94 08/24/17 20:00 Room Air 08/24/17 19:20 93 21 I/O 08/24/17 08/24/17 08/24/17 08/25/17 08/25/17 08/25/17 07:00 15:00 23:00 07:00 15:00 23:00 Intake Total 345 ml 240 ml Output Total 2000 ml 0 ml Balance 345 ml -2000 ml 240 ml Intake Oral 220 ml 240 ml IV Total 125 ml Output Urine Total 0 ml Hemodialysis 2000 ml # Voids 1 # Bowel Movements 0 Result Diagram: 08/23/17 0613 08/23/17 06 Objective Remarks GENERAL: MBMN WF,NAD SKIN: Warm and dry. HEAD: Normocephalic. EYES: No scleral icterus. No injection or drainage. NECK: Supple, trachea midline. No JVD or lymphadenopathy. CARDIOVASCULAR: Regular rate and rhythm without murmurs, gallops, or rubs. RESPIRATORY: Breath sounds equal bilaterally. No accessory muscle use. Exp rhonchi GASTROINTESTINAL: Abdomen soft, non-tender, nondistended. MUSCULOSKELETAL: No cyanosis, or edema. BACK: Nontender without obvious deformity. No CVA tenderness. A/P Assessment and Plan COPD exac ESRD Bronchitis Anemia CAD, s/p cardiac cath PLAN PO Prednisone Aerosol nebs Symbicort 2 puffs bid Cont Abx will FU in AM. Axel Rider MD Aug 25, 2017 18:01
[2017-08-25] MEDS: DOCUSATE SODIUM 100 MG CAP PO SCH (21:00)
[2017-08-25] MEDS: ATORVASTATIN 10 MG TAB PO SCH (21:43)
[2017-08-25] MEDS: SODIUM CHLORIDE 0.9% FLUSH 10 ML FLUSH IV FLUSH SCH (21:45)
[2017-08-26] VITALS (27 sets, daily range): BP systolic 110–158; BP diastolic 50–83; PULSE 50–68; RESP 14–18; TEMP 97.7–98.2; O2SAT 93–100
[2017-08-26] MEDS: DILTIAZEM HCL 60 MG TAB PO SCH ×4 (03:25→18:00)
[2017-08-26] MEDS: HEPARIN SODIUM - SQ 10,000 UNITS/ML VIAL SQ SCH ×2 (03:26→17:10)
[2017-08-26 03:37] LABS: AUTOMATED NEUTROPHIL # 12.7 TH/MM3 (1.8-7.7); BASOPHIL % 0.1 % (0.0-2.0); HEMATOCRIT 32.1 % (35.0-46.0); HEMOGLOBIN 10.9 GM/DL (11.6-15.3); LYMPH % 1.9 % (9.0-44.0); LYMPHOCYTE # 0.3 TH/MM3 (1.0-4.8); MEAN CELL VOLUME 89.9 FL (80.0-100.0); MEAN CORPUSCULAR HEMOGLOBIN 30.6 PG (27.0-34.0); MEAN CORPUSCULAR HGB CONC 34.1 % (32.0-36.0); MEAN PLATELET VOLUME 7.7 FL (7.0-11.0); MONO % 6.4 % (0.0-8.0); MONOCYTE # 0.9 TH/MM3 (0-0.9); NEUT % 91.6 % (16.0-70.0); PLATELET COUNT 251 TH/MM3 (150-450); RED BLOOD COUNT 3.57 MIL/MM3 (4.00-5.30); RED CELL DISTRIBUTION WIDTH 15.6 % (11.6-17.2); WHITE BLOOD COUNT 13.9 TH/MM3 (4.0-11.0)
[2017-08-26 03:49] LABS: BICARBONATE 25.9 MEQ/L (21.0-32.0); CREATININE 6.75 MG/DL (0.50-1.00)
[2017-08-26 03:50] LABS: CHOLESTEROL/ HDL RATIO 6.1 RATIO; HDL CHOLESTEROL 20.8 MG/DL (40.0-60.0)
[2017-08-26] MEDS: METOPROLOL TARTRATE 25 MG TAB PO SCH ×3 (06:00→21:56)
[2017-08-26] MEDS: RESP: ALBUTEROL 2.5 MG/IPRATROPIUM 0.5 MG NEB (SCH) NEB ×3 (07:34→22:06)
[2017-08-26] MEDS: MIDODRINE 5 MG TAB PO SCH ×2 (09:00→13:00)
[2017-08-26] MEDS: FLUoxetine HCL 20 MG CAP PO SCH (09:00)
[2017-08-26] MEDS: BUDESONIDE-FORMOTEROL 80/4.5 MCG INHALER INH SCH ×2 (09:00→20:41)
[2017-08-26] MEDS: SODIUM CHLORIDE 0.9% FLUSH 10 ML FLUSH IV FLUSH SCH ×2 (09:00→20:42)
[2017-08-26] MEDS: LEVOFLOXACIN 750 MG TAB PO SCH (09:20)
[2017-08-26] MEDS: CALCIUM ACETATE 667 MG CAP PO SCH ×3 (09:20→17:09)
[2017-08-26] MEDS: buPROPion HCL 150 MG SUSTAINED RELEASE TAB PO SCH (09:20)
[2017-08-26] MEDS: DOCUSATE SODIUM 50 MG/SENNA 8.6 MG TAB PO SCH ×2 (09:21→20:40)
[2017-08-26] MEDS: predniSONE 20 MG TAB PO SCH ×2 (09:21→20:40)
[2017-08-26] MEDS: GABAPENTIN 100 MG CAP PO SCH ×2 (09:21→20:40)
--- NOTE | 2017-08-26 09:53 | HHI.FPPN ---
Subjective Remarks C/O SOB C/O COUGH D/W RN PT VERY WEAK Objective Vitals Vital Signs Date Time Temp Pulse Resp B/P (MAP) Pulse Ox O2 Delivery O2 Flow Rate FiO2 08/26/17 07:50 59 16 147/67 (93) 100 08/26/17 06:31 58 08/26/17 05:02 63 08/26/17 04:43 16 08/26/17 04:00 62 08/26/17 04:00 64 16 158/77 (104) 94 08/26/17 04:00 62 08/26/17 03:00 60 08/26/17 02:00 58 08/26/17 01:00 58 08/26/17 00:28 59 16 149/83 (105) 96 08/26/17 00:00 56 08/26/17 00:00 Room Air 21 08/25/17 23:00 58 18 157/79 (105) 95 08/25/17 23:00 58 08/25/17 22:00 58 08/25/17 22:00 56 165/83 (110) 08/25/17 21:31 97.8 58 16 141/69 (93) 96 08/25/17 21:00 58 16 141/69 (93) 96 08/25/17 21:00 56 08/25/17 20:04 56 08/25/17 20:00 54 08/25/17 20:00 Room Air 21 08/25/17 19:00 54 08/25/17 19:00 54 167/75 (105) 08/25/17 18:59 95 21 08/25/17 18:00 50 08/25/17 17:00 53 08/25/17 16:00 52 08/25/17 15:00 50 08/25/17 14:30 Room Air 08/25/17 12:00 97.2 59 18 141/61 (87) 96 I/O 08/25/17 08/25/17 08/25/17 08/26/17 08/26/17 08/26/17 07:00 15:00 23:00 07:00 15:00 23:00 Intake Total 240 ml 520 ml 240 ml Output Total 0 ml 500 ml 250 ml Balance 240 ml 20 ml -10 ml Intake Oral 240 ml 520 ml 240 ml Output Urine Total 0 ml 500 ml 250 ml # Bowel Movements 0 Result Diagram: 08/26/1731608/26/17316 Objective Remarks GENERAL: SKIN: Warm and dry. HEAD: Atraumatic. Normocephalic. EYES: Pupils equal and round. No scleral icterus. No injection or drainage. ENT: No nasal bleeding or discharge. Mucous membranes pink and moist. NECK: Trachea midline. No JVD. CARDIOVASCULAR: Regular rate and rhythm. RESPIRATORY: B crackles and diffuse ronchi in all lung pat, GASTROINTESTINAL: Abdomen soft, non-tender, nondistended. Hepatic and splenic margins not palpable. MUSCULOSKELETAL: Extremities without clubbing, cyanosis, or edema. No obvious deformities. NEUROLOGICAL: Awake and alert. No obvious cranial nerve deficits. Motor grossly within normal limits. 2 out of 5 muscle strength in the arms and legs. Normal speech. PSYCHIATRIC: Appropriate mood and affect; insight and judgment normal. Medications and IVs Current Medications Medications (Trade) Dose Ordered Sig/Carlos Route Start Time Stop Time Status Last Admin (Xanax) 1 mg BID PRN PO 08/20/17 15:45 08/25/17 21:40 (Phoslo) 667 mg TIDPC PO 08/20/17 18:30 08/26/17 09:20 (Colace) 200 mg HS PO 08/20/17 21:00 08/20/17 21:48 (PROzac) 20 mg DAILY PO 08/21/17 09:00 08/26/17 09:00 (Neurontin) 100 mg BID PO 08/20/17 21:00 08/26/17 09:21 (Robitussin Liq) 200 mg Q4H PRN PO 08/20/17 15:45 08/21/17 13:52 (Proamatine) 10 mg TID PO 08/20/17 18:00 Future hold 08/25/17 09:04 (Roxicodone) 10 mg Q6HR PRN PO 08/20/17 15:45 08/26/17 03:26 (Tylenol) 650 mg Q4H PRN PO 08/20/17 16:00 (Zofran Inj) 4 mg Q6H PRN IVP 08/20/17 16:00 08/22/17 12:17 (Heparin Inj) 5,000 units Q12H SQ 08/20/17 16:00 08/26/17 03:26 (Narcan Inj) 0.4 mg UNSCH PRN IV PUSH 08/20/17 16:00 (Marixa-Colace) 1 tab BID PO 08/20/17 21:00 08/26/17 09:21 (Milk Of Magnesia Liq) 30 ml Q12H PRN PO 08/20/17 16:00 (Senokot) 17.2 mg Q12H PRN PO 08/20/17 16:00 (Dulcolax Supp) 10 mg DAILY PRN RECTAL 08/20/17 16:00 (Lactulose Liq) 30 ml DAILY PRN PO 08/20/17 16:00 (Catapres) 0.1 mg Q6H PRN PO 08/20/17 16:00 08/25/17 14:37 (Protonix Inj) 40 mg Q24H IV PUSH 08/20/17 16:00 08/25/17 16:42 Sodium Chloride 1,000 ml @ 0 mls/hr Q0M PRN OTHER 08/20/17 18:51 (Heparin Inj) 8,000 units UNSCH PRN IV FLUSH 08/20/17 19:00 Sodium Chloride 1,000 ml @ 200 mls/hr Q5H PRN IV 08/20/17 18:51 Sodium Chloride 1,000 ml @ 0 mls/hr Q0M PRN OTHER 08/20/17 18:51 (Mannitol Inj) 12.5 gm UNSCH PRN IV 08/20/17 19:00 Albumin Human 100 ml @ 60 mls/hr UNSCH PRN IV 08/20/17 19:00 (NS Flush) 5 ml UNSCH PRN IV FLUSH 08/20/17 19:00 08/23/17 12:03 (Zofran Inj) 4 mg UNSCH PRN IV PUSH 08/20/17 19:00 08/23/17 12:16 (Tylenol) 650 mg UNSCH PRN PO 08/20/17 19:00 08/21/17 23:28 (Benadryl) 25 mg UNSCH PRN PO 08/20/17 19:00 (Nitrostat Sl) 0.4 mg UNSCH PRN SL 08/20/17 19:00 (Catapres) 0.1 mg UNSCH PRN PO 08/20/17 19:00 08/25/17 16:42 (Epogen Inj) 4,000 units UNSCH PRN IV PUSH 08/20/17 19:00 08/23/17 12:15 (Gelfoam 12 Mm/7 Mm Top) 1 foam UNSCH PRN TOP 08/20/17 19:00 08/23/17 12:15 Diltiazem HCl 125 mg/Sodium Chloride 125 ml @ 5 mls/hr TITRATE PRN IV 08/21/17 21:45 08/24/17 08:44 (Lipitor) 10 mg HS PO 08/23/17 21:00 08/25/17 21:43 (Deltasone) 20 mg BID PO 08/24/17 21:00 08/26/17 09:21 (Levaquin) 750 mg EVERY OTHER DAY PO 08/26/17 09:00 08/26/17 09:20 (Duoneb Neb) 1 ampule Q6HR WHILE AWAKE NEB NEB 08/24/17 14:00 08/26/17 07:34 (Duoneb Neb) 1 ampule Q4HR NEB PRN NEB 08/24/17 10:45 (Cardizem) 60 mg Q6HR PO 08/24/17 12:00 08/26/17 03:25 (Lopressor) 25 mg Q8HR PO 08/24/17 14:00 08/26/17 06:00 (Wellbutrin Sr) 150 mg DAILY PO 08/25/17 09:00 08/26/17 09:20 (Symbicort 80-4.5 Mcg Inh) 2 puff Q12HR INH 08/24/17 21:00 08/25/17 09:08 (NS Flush) 2 ml UNSCH PRN IV FLUSH 08/25/17 14:00 (NS Flush) 2 ml BID IV FLUSH 08/25/17 21:00 08/26/17 09:00 A/P Assessment and Plan ASSESSMENT AND PLAN: 66 YEAR OLD CF, DISCHARGED TO [facility] AFTER RECENT ADMIT WITH SEPSIS, NEUTROPENIC HCAP, RETURNED WITH COPD EXAC... Chronic obstructive pulmonary disease exacerbation: iv steroids, abx, pulm consult, CXR HCAP: ON ABX, MONITOR FOR C DIF NEW AF RVR: CARDIO CONSULT, iv diltazem GTT, LHC NOTED, RECCOMENDED MEDICAL MANAGEMENT, NEED FURTHER COAG RECS (COUMADIN VS NOAC)... Fluid overload. End-stage renal disease, on hemodialysis. Active smoker. Recent history of Clostridium difficile. Neutropenia: heme/onc consult, Follow up her blood cultures. Recent sepsis and pneumonia. Type 2 diabetes. Heparin 5000 units b.i.d. for VTE PX Midodrine 10 mg t.i.d. scheduled. Oxycodone p.r.n. GI prophylaxis with Protonix 40 IV daily. Physical therapy. Occupational therapy. Alli Watkins MD Aug 26, 2017 09:53
--- NOTE | 2017-08-26 10:53 | HHI.NPPN ---
Subjective History of Present Illness 66 year old female with ESRD CHF COPD Additional Remarks Patient usually dialyzes TTS. Review of Systems General Constitutional: Fatigue Respiratory Lungs: SOB Objective Data Data Vital Signs Date Time Temp Pulse Resp B/P (MAP) Pulse Ox O2 Delivery O2 Flow Rate FiO2 08/26/17 07:50 59 16 147/67 (93) 100 08/26/17 06:31 58 08/26/17 05:02 63 08/26/17 04:43 16 08/26/17 04:00 62 08/26/17 04:00 64 16 158/77 (104) 94 08/26/17 04:00 62 08/26/17 03:00 60 08/26/17 02:00 58 08/26/17 01:00 58 08/26/17 00:28 59 16 149/83 (105) 96 08/26/17 00:00 56 08/26/17 00:00 Room Air 21 08/25/17 23:00 58 18 157/79 (105) 95 08/25/17 23:00 58 08/25/17 22:00 58 08/25/17 22:00 56 165/83 (110) 08/25/17 21:31 97.8 58 16 141/69 (93) 96 08/25/17 21:00 58 16 141/69 (93) 96 08/25/17 21:00 56 08/25/17 20:04 56 08/25/17 20:00 54 08/25/17 20:00 Room Air 21 08/25/17 19:00 54 08/25/17 19:00 54 167/75 (105) 08/25/17 18:59 95 21 08/25/17 18:00 50 08/25/17 17:00 53 08/25/17 16:00 52 08/25/17 15:00 50 08/25/17 14:30 Room Air 08/25/17 12:00 97.2 59 18 141/61 (87) 96 -: 08/26/17 0317 08/26/17 0317 Physical Exam Eyes Eye Exam: Pupils Equal Pulmonary Resp Exam: Decreased Bases Cardiology CV Exam: Regular Gastrointestinal/Abdomen GI Exam: Soft, Non-Tender, Positive Bowel Movement Extremeties Extremities Exam: No Edema Assessment/Plan Problem List: (1) ESRD (end stage renal disease) ICD Codes: N18.6 - End stage renal disease Status: Chronic Plan: Usually dialyzes TTS, on her outpatient schedule. Monitor fluid and electrolytes. CAD medical management (2) COPD with acute exacerbation ICD Codes: J44.1 - Chronic obstructive pulmonary disease with (acute) exacerbation Status: Acute Plan: Improved. (3) DM (diabetes mellitus) ICD Codes: E11.9 - Type 2 diabetes mellitus without complications Status: Chronic Plan: continue insulin coverage. (4) Hyperkalemia ICD Codes: E87.5 - Hyperkalemia Plan: give Kayexalate (5) Atrial fibrillation ICD Codes: I48.91 - Unspecified atrial fibrillation Status: Acute Plan: Received amiodarone. Rate is controlled. Oscar Jurado MD Aug 26, 2017 10:52
--- NOTE | 2017-08-26 13:18 | HHI.NSPN ---
(Jeni Swanson) Note Status Status: Progress Note (Jeni Swanson) Interval History Interval History Patient is a 66-year-old white female with history of brain aneurysm, COPD, lung cancer status post wedge resection left lung, ESRD, chronic cigarette smoker who had been admitted with exacerbation of COPD., chronic cigarette smoker who had been admitted with exacerbation of COPD, today was her dialysis today but she could not make it to dialysis Center as she was feeling weak and fatigued tired short of breath. She goes to dialysis on Saturday, and Saturdays. Apparently she [facility] in a jail, who was previously hospitalized with pneumonia and discharged in stable condition. However, she had become again progressively worse, returns to the emergency room where she is hospitalized with exacerbation of her COPD. She denies history of fever, chills, hemoptysis. She does have significant congestion and chest wheezing During her admission she was noted to be in atrial fibrillation with rapid ventricular response, and neurology was consulted for opinion on anticoagulation due to her history of aneurysm. In discussing further with the patient today she noted history of brain aneurysm coiling in [place] approximately 7 years ago. At the time of evaluation she denies any headaches or visual disturbances. He denies any acute problems overnight. She is pending cardiac catheterization pending. Neurosurgical consultation was requested 08/26: sitting up in chair, doing well. she denies new complaints, wants to go home (Jeni Swanson) Labs, Micro, & Vital Signs Results Date Time Temp Pulse Resp B/P (MAP) Pulse Ox O2 Delivery O2 Flow Rate FiO2 08/26/17 07:50 59 16 147/67 (93) 100 08/26/17 07:35 93 21 08/26/17 07:00 96 Room Air 08/26/17 06:31 58 08/26/17 05:02 63 08/26/17 04:43 16 08/26/17 04:00 62 08/26/17 04:00 64 16 158/77 (104) 94 08/26/17 04:00 62 08/26/17 03:00 60 08/26/17 02:00 58 3/5/18 01:00 58 08/26/17 00:28 59 16 149/83 (105) 96 08/26/17 00:00 56 08/26/17 00:00 Room Air 21 08/25/17 23:00 58 18 157/79 (105) 95 08/25/17 23:00 58 08/25/17 22:00 58 08/25/17 22:00 56 165/83 (110) 08/25/17 21:31 97.8 58 16 141/69 (93) 96 08/25/17 21:00 58 16 141/69 (93) 96 08/25/17 21:00 56 08/25/17 20:04 56 08/25/17 20:00 54 08/25/17 20:00 Room Air 21 08/25/17 19:00 54 08/25/17 19:00 54 167/75 (105) 08/25/17 18:59 95 21 08/25/17 18:00 50 08/25/17 17:00 53 08/25/17 16:00 52 08/25/17 15:00 50 08/25/17 14:30 Room Air Constitutional Vital Signs Date Time Temp Pulse Resp B/P (MAP) Pulse Ox O2 Delivery O2 Flow Rate FiO2 08/26/17 07:50 59 16 147/67 (93) 100 08/26/17 07:35 93 21 08/26/17 07:00 96 Room Air 08/26/17 06:31 58 08/26/17 05:02 63 08/26/17 04:43 16 08/26/17 04:00 62 08/26/17 04:00 64 16 158/77 (104) 94 08/26/17 04:00 62 08/26/17 03:00 60 08/26/17 02:00 58 08/26/17 01:00 58 08/26/17 00:28 59 16 149/83 (105) 96 08/26/17 00:00 56 08/26/17 00:00 Room Air 21 08/25/17 23:00 58 18 157/79 (105) 95 08/25/17 23:00 58 08/25/17 22:00 58 08/25/17 22:00 56 165/83 (110) 08/25/17 21:31 97.8 58 16 141/69 (93) 96 08/25/17 21:00 58 16 141/69 (93) 96 08/25/17 21:00 56 08/25/17 20:04 56 08/25/17 20:00 54 08/25/17 20:00 Room Air 21 08/25/17 19:00 54 08/25/17 19:00 54 167/75 (105) 08/25/17 18:59 95 21 08/25/17 18:00 50 08/25/17 17:00 53 08/25/17 16:00 52 08/25/17 15:00 50 08/25/17 14:30 Room Air (Jeni Swanson) Physical Exam General: Ms. Hylton is comfortable, sitting up in chair, in no obvious distress during examination. Appears very weak. Neuro: Awake, alert. Speech is fluent. Cranial nerve examination: pupils equal, round. Facial motor symmetrical. HENT: Normocephalic, atraumatic. Gross hearing intact bilaterally. Eyes: Pupils equal round. Nonicteric sclera. Neck: soft, supple Musculoskeletal: no extremity deformities, moves all four extremities Lungs: clear, nonlabored breathing, no wheezing Skin: warm and dry, no cyanosis. (Jeni Swanson) General: Ms. Hylton is comfortable, sitting up in chair, in no obvious distress during examination. Appears very weak. Neuro: Awake, alert. Speech is fluent. Cranial nerve examination: pupils equal, round. Facial motor symmetrical. HENT: Normocephalic, atraumatic. Gross hearing intact bilaterally. Eyes: Pupils equal round. Nonicteric sclera. Neck: soft, supple Musculoskeletal: no extremity deformities, moves all four extremities Lungs: clear, nonlabored breathing, no wheezing Skin: warm and dry, no cyanosis. (Angelo Ortega MD) Medications Current Medications Current Medications Medications (Trade) Dose Ordered Sig/Carlos Route PRN Reason Start Time Stop Time Status Last Admin Dose Admin Alprazolam (Xanax) 1 mg BID PRN PO ANXIETY 08/20/17 15:45 08/25/17 21:40 Calcium Acetate (Phoslo) 667 mg TIDPC PO 08/20/17 18:30 08/26/17 09:20 Docusate Sodium (Colace) 200 mg HS PO 08/20/17 21:00 08/20/17 21:48 Fluoxetine HCl (PROzac) 20 mg DAILY PO 08/21/17 09:00 08/26/17 09:00 Gabapentin (Neurontin) 100 mg BID PO 08/20/17 21:00 08/26/17 09:21 Guaifenesin (Robitussin Liq) 200 mg Q4H PRN PO COUGH 08/20/17 15:45 08/21/17 13:52 Midodrine (Proamatine) 10 mg TID PO 08/20/17 18:00 Future hold 08/25/17 09:04 Oxycodone HCl (Roxicodone) 10 mg Q6HR PRN PO PAIN SCALE 6 TO 10 08/20/17 15:45 08/26/17 03:26 Acetaminophen (Tylenol) 650 mg Q4H PRN PO TEMP > 100.4 08/20/17 16:00 Ondansetron HCl (Zofran Inj) 4 mg Q6H PRN IVP NAUSEA OR VOMITING 08/20/17 16:00 08/22/17 12:17 Heparin Sodium (Porcine) (Heparin Inj) 5,000 units Q12H SQ 08/20/17 16:00 08/26/17 03:26 Naloxone HCl (Narcan Inj) 0.4 mg UNSCH PRN IV PUSH SEE LABEL COMMENTS 08/20/17 16:00 Senna/Docusate Sodium (Marixa-Colace) 1 tab BID PO 08/20/17 21:00 08/26/17 09:21 Magnesium Hydroxide (Milk Of Magnesia Liq) 30 ml Q12H PRN PO Mild constipation 08/20/17 16:00 Sennosides (Senokot) 17.2 mg Q12H PRN PO Moderate constipation 08/20/17 16:00 Bisacodyl (Dulcolax Supp) 10 mg DAILY PRN RECTAL SEVERE CONSITIPATION 08/20/17 16:00 Lactulose (Lactulose Liq) 30 ml DAILY PRN PO SEVERE CONSITIPATION 08/20/17 16:00 Clonidine (Catapres) 0.1 mg Q6H PRN PO SBP>160, DBP>90 08/20/17 16:00 08/25/17 14:37 Pantoprazole Sodium (Protonix Inj) 40 mg Q24H IV PUSH 08/20/17 16:00 08/25/17 16:42 Sodium Chloride 1,000 ml @ 0 mls/hr Q0M PRN OTHER For Prime & Rinse Back 08/20/17 18:51 Heparin Sodium (Porcine) (Heparin Inj) 8,000 units UNSCH PRN IV FLUSH WITH DIALYSIS 08/20/17 19:00 Sodium Chloride 1,000 ml @ 200 mls/hr Q5H PRN IV WITH DIALYSIS 08/20/17 18:51 Sodium Chloride 1,000 ml @ 0 mls/hr Q0M PRN OTHER WITH DIALYSIS 08/20/17 18:51 Mannitol (Mannitol Inj) 12.5 gm UNSCH PRN IV WITH DIALYSIS 08/20/17 19:00 Albumin Human 100 ml @ 60 mls/hr UNSCH PRN IV WITH DIALYSIS 08/20/17 19:00 Sodium Chloride (NS Flush) 5 ml UNSCH PRN IV FLUSH WITH DIALYSIS 08/20/17 19:00 08/23/17 12:03 Ondansetron HCl (Zofran Inj) 4 mg UNSCH PRN IV PUSH WITH DIALYSIS 08/20/17 19:00 08/23/17 12:16 Acetaminophen (Tylenol) 650 mg UNSCH PRN PO for headach, pain 1-10,T> 101F 08/20/17 19:00 08/21/17 23:28 Diphenhydramine HCl (Benadryl) 25 mg UNSCH PRN PO for hives/itching/anaphylaxis 08/20/17 19:00 Nitroglycerin (Nitrostat Sl) 0.4 mg UNSCH PRN SL CHEST PAIN 08/20/17 19:00 Clonidine (Catapres) 0.1 mg UNSCH PRN PO for BP > 180/100 X 2 readings 08/20/17 19:00 08/25/17 16:42 Epoetin Darío (Epogen Inj) 4,000 units UNSCH PRN IV PUSH WITH DIALYSIS 08/20/17 19:00 08/23/17 12:15 Gelatin (Gelfoam 12 Mm/7 Mm Top) 1 foam UNSCH PRN TOP SEE LABEL COMMENTS 08/20/17 19:00 08/23/17 12:15 Diltiazem HCl 125 mg/Sodium Chloride 125 ml @ 5 mls/hr TITRATE PRN IV Tachycardia 08/21/17 21:45 08/24/17 08:44 Atorvastatin Calcium (Lipitor) 10 mg HS PO 08/23/17 21:00 08/25/17 21:43 Prednisone (Deltasone) 20 mg BID PO 08/24/17 21:00 08/26/17 09:21 Levofloxacin (Levaquin) 750 mg EVERY OTHER DAY PO 08/26/17 09:00 08/26/17 09:20 Albuterol/ Ipratropium (Duoneb Neb) 1 ampule Q6HR WHILE AWAKE NEB NEB 08/24/17 14:00 08/26/17 07:34 Albuterol/ Ipratropium (Duoneb Neb) 1 ampule Q4HR NEB PRN NEB Dyspnea 08/24/17 10:45 Diltiazem HCl (Cardizem) 60 mg Q6HR PO 08/24/17 12:00 08/26/17 03:25 Metoprolol Tartrate (Lopressor) 25 mg Q8HR PO 08/24/17 14:00 08/26/17 06:00 Bupropion HCl (Wellbutrin Sr) 150 mg DAILY PO 08/25/17 09:00 08/26/17 09:20 Budesonide/ Formoterol Fumarate (Symbicort 80-4.5 Mcg Inh) 2 puff Q12HR INH 08/24/17 21:00 08/25/17 09:08 Sodium Chloride (NS Flush) 2 ml UNSCH PRN IV FLUSH FLUSH AFTER USING IV ACCESS 08/25/17 14:00 Sodium Chloride (NS Flush) 2 ml BID IV FLUSH 08/25/17 21:00 08/26/17 09:00 (Jeni Swanson) Current Medications Current Medications Sodium Chloride (NS Flush) 2 ml UNSCH PRN IVF FLUSH AFTER USING IV ACCESS; Start 08/20/17 at 11:15; Stop 08/20/17 at 19:09; Status DC Methylprednisolone Sodium Succinate (SoluMEDROL INJ) 125 mg ONCE ONCE IV PUSH Last administered on 08/20/17at 11:33; Start 08/20/17 at 11:15; Stop 08/20/17 at 11:16; Status DC Albuterol/ Ipratropium (Duoneb Neb) 1 ampule Q15M INH Last administered on 08/20 11:19; Start 08/20/17 at 11:15; Stop 08/20/17 at 11:31; Status DC Ceftriaxone Sodium 1000 mg/ Sodium Chloride 100 ml @ 200 mls/hr ONCE ONCE IV Last administered on 08/20/17at 13:38; Start 08/20/17 at 13:15; Stop 08/20/17 at 13:44; Status DC Azithromycin (Zithromax) 500 mg DAILY PO Last administered on 08/23/17 12:02; Start 08/21/17 at 09:00; Stop 08/24/17 at 10:40; Status DC Albuterol/ Ipratropium (Duoneb Neb) 1 ampule ONCE ONCE INH Last administered on 08/20/17 13:16; Start 08/20/17 at 13:15; Stop 08/20/17 at 13:17; Status DC Alprazolam (Xanax) 1 mg BID PRN PO ANXIETY Last administered on 08/25/17 21:40 ; Start 08/20/17 at 15:45 Bupropion HCl (Wellbutrin Xl 24 Hr) 150 mg DAILY PO Last administered on 12:11; Start 08/21/17 at 09:00; Stop 08/24/17 at 15:55; Status DC Calcium Acetate (Phoslo) 667 mg TIDPC PO Last administered on 08/26/17 13:18; Start 08/20/17 at 18:30 Docusate Sodium (Colace) 200 mg HS PO Last administered on 08/20/17at 21:48; Start 08/20/17 at 21:00 Fluoxetine HCl (PROzac) 20 mg DAILY PO Last administered on 08/26/17 09:00; Start 08/21/17 at 09:00 Gabapentin (Neurontin) 100 mg BID PO Last administered on 08/26/17 09:21; Start 08/20/17 at 21:00 Guaifenesin (Robitussin Liq) 200 mg Q4H PRN PO COUGH Last administered on at 13:52; Start 08/20/17 at 15:45 Midodrine (Proamatine) 10 mg TID PO Last administered on 3/4/18at 09:04; Start 08/20/17 at 18:00; Status Future hold Oxycodone HCl (Roxicodone) 10 mg Q6HR PRN PO PAIN SCALE 6 TO 10 Last administered on 08/26/17 13:26; Start 08/20/17 at 15:45 Sodium Chloride (NS Flush) 2 ml UNSCH PRN IV FLUSH FLUSH AFTER USING IV ACCESS ; Start 08/20/17 at 16:00; Stop 08/20/17 at 19:09; Status DC Sodium Chloride (NS Flush) 2 ml BID IV FLUSH ; Start 08/20/17 at 21:00; Stop at 21:00; Status DC Acetaminophen (Tylenol) 650 mg Q4H PRN PO TEMP > 100.4; Start 08/20/17 at 16:00 Ondansetron HCl (Zofran Inj) 4 mg Q6H PRN IVP NAUSEA OR VOMITING Last administered on 08/22/17 12:17; Start 08/20/17 at 16:00 Heparin Sodium (Porcine) (Heparin Inj) 5,000 units Q12H SQ Last administered on 08/26/17 03:26; Start 08/20/17 at 16:00 Naloxone HCl (Narcan Inj) 0.4 mg UNSCH PRN IV PUSH SEE LABEL COMMENTS; Start at 16:00 Senna/Docusate Sodium (Marixa-Colace) 1 tab BID PO Last administered on 08/26/17 09:21; Start 08/20/17 at 21:00 Magnesium Hydroxide (Milk Of Magnesia Liq) 30 ml Q12H PRN PO Mild constipation ; Start 08/20/17 at 16:00 Sennosides (Senokot) 17.2 mg Q12H PRN PO Moderate constipation; Start 08/20/17 at 16:00 Bisacodyl (Dulcolax Supp) 10 mg DAILY PRN RECTAL SEVERE CONSITIPATION; Start at 16:00 Lactulose (Lactulose Liq) 30 ml DAILY PRN PO SEVERE CONSITIPATION; Start at 16:00 Albuterol/ Ipratropium (Duoneb Neb) 1 ampule QID NEB NEB Last administered on 08/24/17at 08:03; Start 08/20/17 at 16:00; Stop 08/24/17 at 10:40; Status DC Clonidine (Catapres) 0.1 mg Q6H PRN PO SBP>160, DBP>90 Last administered on 08/25at 14:37; Start 08/20/17 at 16:00 Methylprednisolone Sodium Succinate (SoluMEDROL INJ) 80 mg Q6HR IV PUSH Last administered on 08/24/17 06:13; Start 08/20/17 at 18:00; Stop 08/24/17 at 10:40; Status DC Pantoprazole Sodium (Protonix Inj) 40 mg Q24H IV PUSH Last administered on at 16:42; Start 08/20/17 at 16:00 Sodium Chloride 1,000 ml @ 0 mls/hr Q0M PRN OTHER For Prime & Rinse Back; Start 08/20/17 at 18:51 Heparin Sodium (Porcine) (Heparin Inj) 8,000 units UNSCH PRN IV FLUSH WITH DIALYSIS; Start 08/20/17 at 19:00 Sodium Chloride 1,000 ml @ 200 mls/hr Q5H PRN IV WITH DIALYSIS; Start 08/20/17 at 18:51 Sodium Chloride 1,000 ml @ 0 mls/hr Q0M PRN OTHER WITH DIALYSIS; Start at 18:51 Mannitol (Mannitol Inj) 12.5 gm UNSCH PRN IV WITH DIALYSIS; Start 08/20/17 at 19:00 Albumin Human 100 ml @ 60 mls/hr UNSCH PRN IV WITH DIALYSIS; Start 08/20/17 at 19:00 Sodium Chloride (NS Flush) 5 ml UNSCH PRN IV FLUSH WITH DIALYSIS Last administered on 08/23/17at 12:03; Start 08/20/17 at 19:00 Ondansetron HCl (Zofran Inj) 4 mg UNSCH PRN IV PUSH WITH DIALYSIS Last administered on 08/23/17at 12:16; Start 08/20/17 at 19:00 Acetaminophen (Tylenol) 650 mg UNSCH PRN PO for headach, pain 1-10,T> 101F Last administered on 08/21/17at 23:28; Start 08/20/17 at 19:00 Diphenhydramine HCl (Benadryl) 25 mg UNSCH PRN PO for hives/itching/anaphylaxis ; Start 08/20/17 at 19:00 Nitroglycerin (Nitrostat Sl) 0.4 mg UNSCH PRN SL CHEST PAIN; Start 08/20/17 at 19:00 Clonidine (Catapres) 0.1 mg UNSCH PRN PO for BP > 180/100 X 2 readings Last administered on 08/25/17 16:42; Start 08/20/17 at 19:00 Epoetin Darío (Epogen Inj) 4,000 units UNSCH PRN IV PUSH WITH DIALYSIS Last administered on 08/23/17 12:15; Start 08/20/17 at 19:00 Gelatin (Gelfoam 12 Mm/7 Mm Top) 1 foam UNSCH PRN TOP SEE LABEL COMMENTS Last administered on 08/23/17 12:15; Start 08/20/17 at 19:00 Sodium Polystyrene Sulfonate (Kayexalate Liq) 15 gm ONCE ONCE PO Last administered on 08/20/17at 21:45; Start 08/20/17 at 19:00; Stop 08/20/17 at 19:12 ; Status DC Sodium Chloride 200 ml @ 400 mls/hr BOLUS ONCE IV Last administered on at 20:53; Start 08/21/17 at 20:30; Stop 08/21/17 at 20:59; Status DC Diltiazem HCl 125 mg/Sodium Chloride 125 ml @ 5 mls/hr TITRATE PRN IV Tachycardia Last administered on 08/24/17 08:44; Start 08/21/17 at 21:45 Atorvastatin Calcium (Lipitor) 10 mg ONCE ONCE PO Last administered on 17:08; Start 08/23/17 at 14:45; Stop 08/23/17 at 14:46; Status DC Atorvastatin Calcium (Lipitor) 10 mg HS PO Last administered on 08/25/17 21:43 ; Start 08/23/17 at 21:00 Metoprolol Tartrate (Lopressor) 25 mg ONCE ONCE PO Last administered on 06:13; Start 08/24/17 at 06:15; Stop 08/24/17 at 06:16; Status DC Prednisone (Deltasone) 20 mg BID PO Last administered on 08/26/17at 09:21; Start 08/24/17 at 21:00 Prednisone (Deltasone) 20 mg ONCE ONCE PO Last administered on 08/24/17 12:10 ; Start 08/24/17 at 10:45; Stop 08/24/17 at 10:58; Status DC Levofloxacin (Levaquin) 750 mg EVERY OTHER DAY PO Last administered on 09:20; Start 08/26/17 at 09:00 Levofloxacin (Levaquin) 750 mg ONCE ONCE PO Last administered on 08/24/17at 12: 10; Start 08/24/17 at 10:45; Stop 08/24/17 at 10:58; Status DC Albuterol/ Ipratropium (Duoneb Neb) 1 ampule Q6HR WHILE AWAKE NEB NEB Last administered on 08/26/17 07:34; Start 08/24/17 at 14:00 Albuterol/ Ipratropium (Duoneb Neb) 1 ampule Q4HR NEB PRN NEB Dyspnea; Start at 10:45 Diltiazem HCl (Cardizem) 60 mg Q6HR PO Last administered on 08/26/17 03:25; Start 08/24/17 at 12:00 Metoprolol Tartrate (Lopressor) 25 mg Q8HR PO Last administered on 08/26/17 13: 18; Start 08/24/17 at 14:00 Iohexol (Omnipaque 350 Inj) 74 ml STK-MED ONCE IVCONTRAST Last administered on 08/20/17at 15:21; Start 08/20/17 at 15:21; Stop 08/24/17 at 14:14; Status DC Bupropion HCl (Wellbutrin Sr) 150 mg DAILY PO Last administered on 08/26/17 09: 20; Start 08/25/17 at 09:00 Budesonide/ Formoterol Fumarate (Symbicort 80-4.5 Mcg Inh) 2 puff Q12HR INH Last administered on 08/25/17 09:08; Start 08/24/17 at 21:00 Heparin Sodium/ Sodium Chloride 2,000 ml @ As Directed STK-MED ONCE IV FLUSH Last administered on 08/25/17 12:36; Start 08/25/17 at 12:36; Stop 08/25/17 at 12: 37; Status DC Midazolam HCl (Versed Inj) 2 mg STK-MED ONCE .ROUTE Last administered on at 13:00; Start 08/25/17 at 12:59; Stop 08/25/17 at 13:00; Status DC Heparin Sodium (Porcine) (Heparin Inj) 10,000 units STK-MED ONCE .ROUTE Last administered on 08/25/17at 13:10; Start 08/25/17 at 13:12; Stop 08/25/17 at 13:13; Status DC Sodium Chloride (NS Flush) 2 ml UNSCH PRN IV FLUSH FLUSH AFTER USING IV ACCESS ; Start 08/25/17 at 14:00 Sodium Chloride (NS Flush) 2 ml BID IV FLUSH Last administered on 08/26/17at 09: 00; Start 08/25/17 at 21:00 Miscellaneous Information 1 ONCE ONCE XX Last administered on 08/25/17at 14:00; Start 08/25/17 at 14:00; Stop 08/25/17 at 14:01; Status DC Bacitracin (Bacitracin Oint Packet) 0.9 gm ONCE ONCE TOP ; Start 08/25/17 at 14: 00; Stop 08/25/17 at 14:01; Status DC Iohexol (OMNIPAQUE 350 INJ ([employer])) 100 ml STK-MED ONCE OTHER ; Start at 15:21; Stop 08/26/17 at 08:27; Status DC (Angelo Ortega MD) Medical Decision Making MDM Remarks 66 y/o female history of intracerebral aneurysm that was coiled in [place] approximately 7 years ago COPD with exacerbation Atrial Fibrillation with RVR (Jeni Swanson) Plan Plan Remarks cont cardiology management clear for anticoagulation from NRS standpoint, no further neurosurgical treatments planned, (Jeni Swanson) Attending Statement I reviewed her follow up studies Continue neuro checks in a serial fashion. No further treatment for her aneurysm Pulmonary. Continue aggressive pulmonary toilette, nasotracheal suction, and breathing treatments with nebulizers. Daily PT and OT Nutrition. Tolerating Oral diet Renal. Continue to monitor closely urine output, BUN and creatinine Endocrine. Continue to Monitor serial Acu checks and SSI as needed in detail ID continue to monitor for signs of infection Continue Protonix for stress ulcer prophylaxis Continue Jace hose and SCD's for DVT prophylaxis The exam, history, and the medical decision-making described in the above note were completed with the assistance of the mid-level provider. I reviewed and agree with the findings presented. I attest that I had a [id number] encounter with the patient on the same day, and personally performed and documented my assessment and findings in the medical record. (Angelo Ortega MD) eJni Swanson Aug 26, 2017 13:18 Angelo Ortega MD Aug 26, 2017 14:16
[2017-08-26] MEDS ORDERED: MIDODRINE 5 MG TAB PO PRN (16:30)
[2017-08-26] MEDS ORDERED: ASPIRIN 81 MG CHEW TAB PO SCH (16:30)
--- NOTE | 2017-08-26 16:48 | HHI.PR ---
Subjective Remarks ALERT NAD up in chair Objective Vital Signs Date Time Temp Pulse Resp B/P (MAP) Pulse Ox O2 Delivery O2 Flow Rate FiO2 08/26/17 07:50 59 16 147/67 (93) 100 08/26/17 07:35 93 21 08/26/17 07:00 96 Room Air 08/26/17 06:31 58 08/26/17 05:02 63 08/26/17 04:43 16 08/26/17 04:00 62 08/26/17 04:00 64 16 158/77 (104) 94 08/26/17 04:00 62 08/26/17 03:00 60 08/26/17 02:00 58 08/26/17 01:00 58 08/26/17 00:28 59 16 149/83 (105) 96 08/26/17 00:00 56 08/26/17 00:00 Room Air 21 08/25/17 23:00 58 18 157/79 (105) 95 08/25/17 23:00 58 08/25/17 22:00 58 08/25/17 22:00 56 165/83 (110) 08/25/17 21:31 97.8 58 16 141/69 (93) 96 08/25/17 21:00 58 16 141/69 (93) 96 08/25/17 21:00 56 08/25/17 20:04 56 08/25/17 20:00 54 08/25/17 20:00 Room Air 21 08/25/17 19:00 54 08/25/17 19:00 54 167/75 (105) 08/25/17 18:59 95 21 08/25/17 18:00 50 08/25/17 17:00 53 I/O 08/25/17 08/25/17 08/25/17 08/26/17 08/26/17 08/26/17 07:00 15:00 23:00 07:00 15:00 23:00 Intake Total 240 ml 520 ml 240 ml Output Total 0 ml 500 ml 250 ml Balance 240 ml 20 ml -10 ml Intake Oral 240 ml 520 ml 240 ml Output Urine Total 0 ml 500 ml 250 ml # Bowel Movements 0 Result Diagram: 08/26/1731608/26/17316 Objective Remarks GENERAL: SKIN: Warm and dry. HEAD: Atraumatic. Normocephalic. EYES: Pupils equal and round. No scleral icterus. No injection or drainage. ENT: No nasal bleeding or discharge. Mucous membranes pink and moist. NECK: Trachea midline. No JVD. CARDIOVASCULAR: Regular rate and rhythm. RESPIRATORY: No accessory muscle use. FEW RHONCHI AT BASIS. Breath sounds equal bilaterally. GASTROINTESTINAL: Abdomen soft, non-tender, nondistended. Hepatic and splenic margins not palpable. MUSCULOSKELETAL: Extremities without clubbing, cyanosis, or edema. No obvious deformities. NEUROLOGICAL: Awake and alert. No obvious cranial nerve deficits. Motor grossly within normal limits. Five out of 5 muscle strength in the arms and legs. Normal speech. PSYCHIATRIC: Appropriate mood and affect; insight and judgment normal. Assessment and Plan Assessment and Plan RESPIRATORY FAILURE , ON O2 COPD EXACERBATION CKD PLAN O2 NEEDED BRONCHODILATORS,steroids INCREASE ACTIVITY Marianela Bear MD Aug 26, 2017 16:48
[2017-08-26] MEDS: PANTOPRAZOLE SODIUM 40 MG VIAL IV PUSH SCH (17:12)
--- NOTE | 2017-08-26 17:53 | RADRPT ---
EXAM DATE/TIME: 08/26/2017 17:32 [facility] COMPARISON: CHEST SINGLE AP, August 20, 2017, 11:45. INDICATIONS : Congestive heart failure. MEDICAL HISTORY : Myocardial infarction. Chronic obstructive pulmonary disease. Emphysema. Renal failure. Diabetes. Hypotension. Coronary artery disease. SURGICAL HISTORY : Cardiac cath. Lobectomy. ENCOUNTER: Subsequent ACUITY: 1 day PAIN SCORE: 0/10 LOCATION: Bilateral chest FINDINGS: A single portable frontal view of the chest shows consolidation involving the lingula. Right lung is clear. No effusions. Heart is normal in size. Degenerative spine. CONCLUSION: Lingular infiltrate. Infectious etiology versus atypical pulmonary edema. Claudy Rucker Jr., MD on August 26, 2017 at 17:51 Board Certified Radiologist. This report was verified electronically.
[2017-08-26] MEDS ORDERED: MIDODRINE 5 MG TAB PO SCH (18:00)
--- NOTE | 2017-08-26 20:03 | PD.CARD.PN ---
Subjective Subjective Remarks alert in nad Objective Medications Current Medications Medications (Trade) Dose Ordered Sig/Carlos Route Start Time Stop Time Status Last Admin (Xanax) 1 mg BID PRN PO 08/20/17 15:45 08/25/17 21:40 (Phoslo) 667 mg TIDPC PO 08/20/17 18:30 08/26/17 17:09 (Colace) 200 mg HS PO 08/20/17 21:00 08/20/17 21:48 (PROzac) 20 mg DAILY PO 08/21/17 09:00 08/26/17 09:00 (Neurontin) 100 mg BID PO 08/20/17 21:00 08/26/17 09:21 (Robitussin Liq) 200 mg Q4H PRN PO 08/20/17 15:45 08/21/17 13:52 (Roxicodone) 10 mg Q6HR PRN PO 08/20/17 15:45 08/26/17 13:26 (Tylenol) 650 mg Q4H PRN PO 08/20/17 16:00 (Zofran Inj) 4 mg Q6H PRN IVP 08/20/17 16:00 08/22/17 12:17 (Heparin Inj) 5,000 units Q12H SQ 08/20/17 16:00 08/26/17 17:10 (Narcan Inj) 0.4 mg UNSCH PRN IV PUSH 08/20/17 16:00 (Marixa-Colace) 1 tab BID PO 08/20/17 21:00 08/26/17 09:21 (Milk Of Magnesia Liq) 30 ml Q12H PRN PO 08/20/17 16:00 (Senokot) 17.2 mg Q12H PRN PO 08/20/17 16:00 (Dulcolax Supp) 10 mg DAILY PRN RECTAL 08/20/17 16:00 (Lactulose Liq) 30 ml DAILY PRN PO 08/20/17 16:00 (Catapres) 0.1 mg Q6H PRN PO 08/20/17 16:00 08/25/17 14:37 (Protonix Inj) 40 mg Q24H IV PUSH 08/20/17 16:00 08/26/17 17:12 Sodium Chloride 1,000 ml @ 0 mls/hr Q0M PRN OTHER 08/20/17 18:51 (Heparin Inj) 8,000 units UNSCH PRN IV FLUSH 08/20/17 19:00 Sodium Chloride 1,000 ml @ 200 mls/hr Q5H PRN IV 08/20/17 18:51 Sodium Chloride 1,000 ml @ 0 mls/hr Q0M PRN OTHER 08/20/17 18:51 (Mannitol Inj) 12.5 gm UNSCH PRN IV 08/20/17 19:00 Albumin Human 100 ml @ 60 mls/hr UNSCH PRN IV 08/20/17 19:00 (NS Flush) 5 ml UNSCH PRN IV FLUSH 08/20/17 19:00 08/23/17 12:03 (Zofran Inj) 4 mg UNSCH PRN IV PUSH 08/20/17 19:00 08/23/17 12:16 (Tylenol) 650 mg UNSCH PRN PO 08/20/17 19:00 08/21/17 23:28 (Benadryl) 25 mg UNSCH PRN PO 08/20/17 19:00 (Nitrostat Sl) 0.4 mg UNSCH PRN SL 08/20/17 19:00 (Catapres) 0.1 mg UNSCH PRN PO 08/20/17 19:00 08/25/17 16:42 (Epogen Inj) 4,000 units UNSCH PRN IV PUSH 08/20/17 19:00 08/23/17 12:15 (Gelfoam 12 Mm/7 Mm Top) 1 foam UNSCH PRN TOP 08/20/17 19:00 08/23/17 12:15 Diltiazem HCl 125 mg/Sodium Chloride 125 ml @ 5 mls/hr TITRATE PRN IV 08/21/17 21:45 08/24/17 08:44 (Lipitor) 10 mg HS PO 08/23/17 21:00 08/25/17 21:43 (Deltasone) 20 mg BID PO 08/24/17 21:00 08/26/17 09:21 (Levaquin) 750 mg EVERY OTHER DAY PO 08/26/17 09:00 08/26/17 09:20 (Duoneb Neb) 1 ampule Q6HR WHILE AWAKE NEB NEB 08/24/17 14:00 08/26/17 14:19 (Duoneb Neb) 1 ampule Q4HR NEB PRN NEB 08/24/17 10:45 (Cardizem) 60 mg Q6HR PO 08/24/17 12:00 08/26/17 03:25 (Lopressor) 25 mg Q8HR PO 08/24/17 14:00 08/26/17 13:18 (Wellbutrin Sr) 150 mg DAILY PO 08/25/17 09:00 08/26/17 09:20 (Symbicort 80-4.5 Mcg Inh) 2 puff Q12HR INH 08/24/17 21:00 08/25/17 09:08 (NS Flush) 2 ml UNSCH PRN IV FLUSH 08/25/17 14:00 (NS Flush) 2 ml BID IV FLUSH 08/25/17 21:00 08/26/17 09:00 (Aspirin Chew) 81 mg DAILY PO 08/26/17 16:30 08/26/17 17:09 (Proamatine) 10 mg TID PRN PO 08/26/17 16:30 Vital Signs / I&O Vital Signs Date Time Temp Pulse Resp B/P (MAP) Pulse Ox O2 Delivery O2 Flow Rate FiO2 08/26/17 19:39 98.2 58 16 142/62 (88) 99 08/26/17 18:00 56 08/26/17 17:00 56 08/26/17 16:00 64 08/26/17 15:00 57 08/26/17 15:00 97.7 68 18 121/64 (83) 93 08/26/17 14:00 52 08/26/17 13:00 52 08/26/17 12:00 50 08/26/17 11:00 58 08/26/17 11:00 97.8 68 18 110/50 (70) 93 08/26/17 10:00 50 08/26/17 09:00 52 08/26/17 08:00 58 08/26/17 07:50 59 16 147/67 (93) 100 08/26/17 07:35 93 21 08/26/17 07:00 96 Room Air 08/26/17 07:00 58 08/26/17 06:31 58 08/26/17 05:02 63 08/26/17 04:43 16 08/26/17 04:00 62 08/26/17 04:00 64 16 158/77 (104) 94 08/26/17 04:00 62 08/26/17 03:00 60 08/26/17 02:00 58 08/26/17 01:00 58 08/26/17 00:28 59 16 149/83 (105) 96 08/26/17 00:00 56 08/26/17 00:00 Room Air 21 08/25/17 23:00 58 18 157/79 (105) 95 08/25/17 23:00 58 08/25/17 22:00 58 08/25/17 22:00 56 165/83 (110) 08/25/17 21:31 97.8 58 16 141/69 (93) 96 08/25/17 21:00 58 16 141/69 (93) 96 08/25/17 21:00 56 08/25/17 20:04 56 08/25/17 20:00 54 08/25/17 20:00 Room Air 21 I/O 08/25/17 08/25/17 08/25/17 08/26/17 08/26/17 08/26/17 07:00 15:00 23:00 07:00 15:00 23:00 Intake Total 240 ml 520 ml 240 ml 720 ml Output Total 0 ml 500 ml 250 ml 520 ml Balance 240 ml 20 ml -10 ml 200 ml Intake Oral 240 ml 520 ml 240 ml 720 ml Output Urine Total 0 ml 500 ml 250 ml 520 ml # Bowel Movements 0 Laboratory GENERAL: SKIN: Warm and dry. HEAD: Normocephalic. EYES: No scleral icterus. No injection or drainage. NECK: Supple, trachea midline. No JVD or lymphadenopathy. CARDIOVASCULAR: Regular rate and rhythm without murmurs, gallops, or rubs. RESPIRATORY: Breath sounds equal bilaterally. No accessory muscle use. GASTROINTESTINAL: Abdomen soft, non-tender, nondistended. MUSCULOSKELETAL: No cyanosis, or edema. BACK: Nontender without obvious deformity. No CVA tenderness. Laboratory Tests Test 08/26/17 03:17 White Blood Count 13.9 TH/MM3 Red Blood Count 3.57 MIL/MM3 Hemoglobin 10.9 GM/DL Hematocrit 32.1 % Mean Corpuscular Volume 89.9 FL Mean Corpuscular Hemoglobin 30.6 PG Mean Corpuscular Hemoglobin Concent 34.1 % Red Cell Distribution Width 15.6 % Platelet Count 251 TH/MM3 Mean Platelet Volume 7.7 FL Neutrophils (%) (Auto) 91.6 % Lymphocytes (%) (Auto) 1.9 % Monocytes (%) (Auto) 6.4 % Eosinophils (%) (Auto) 0.0 % Basophils (%) (Auto) 0.1 % Neutrophils # (Auto) 12.7 TH/MM3 Lymphocytes # (Auto) 0.3 TH/MM3 Monocytes # (Auto) 0.9 TH/MM3 Eosinophils # (Auto) 0.0 TH/MM3 Basophils # (Auto) 0.0 TH/MM3 CBC Comment DIFF FINAL Differential Comment Blood Urea Nitrogen 96 MG/DL Creatinine 6.75 MG/DL Random Glucose 258 MG/DL Calcium Level 9.0 MG/DL Sodium Level 132 MEQ/L Potassium Level 3.9 MEQ/L Chloride Level 93 MEQ/L Carbon Dioxide Level 25.9 MEQ/L Anion Gap 13 MEQ/L Estimat Glomerular Filtration Rate 6 ML/MIN Total Creatine Kinase 14 U/L Triglycerides Level 376 MG/DL Cholesterol Level 127 MG/DL LDL Cholesterol 31 MG/DL HDL Cholesterol 20.8 MG/DL Cholesterol/HDL Ratio 6.10 RATIO Imaging Last 24 hours Impressions Chest X-Ray 08/26/17 0000 Signed Impressions: Service Date/Time: Saturday, August 26, 2017 17:32 - CONCLUSION: Lingular infiltrate. Infectious etiology versus atypical pulmonary edema. Claudy Rucker Jr., MD Assessment and Plan Problem List: (1) Unstable angina ICD Codes: I20.0 - Unstable angina (2) CHF (congestive heart failure) ICD Codes: I50.9 - Heart failure, unspecified (3) COPD (chronic obstructive pulmonary disease) ICD Codes: J44.9 - Chronic obstructive pulmonary disease, unspecified Status: Chronic (4) Shortness of breath ICD Codes: R06.02 - Shortness of breath (5) Chronic kidney disease ICD Codes: N18.9 - Chronic kidney disease, unspecified Status: Chronic (6) Atrial fibrillation ICD Codes: I48.91 - Unspecified atrial fibrillation Status: Acute (7) DM (diabetes mellitus) ICD Codes: E11.9 - Type 2 diabetes mellitus without complications Status: Chronic (8) ESRD (end stage renal disease) ICD Codes: N18.6 - End stage renal disease Status: Chronic (9) COPD with acute exacerbation ICD Codes: J44.1 - Chronic obstructive pulmonary disease with (acute) exacerbation Status: Acute (10) Normocytic anemia ICD Codes: D64.9 - Anemia, unspecified Status: Chronic Assessment and Plan 1.) USA/CAD - mild to mod lm cad on cath, continuet lipitor 10 mg hs 2.) Afib - convert cardizem drip to po, I d/w Dr Parada and read Dr Ortega' note who both say ac for afib, she said coumadin or noac ok to use without antiplatelet agent. i advised her daughter on 08/25/17 for the patient to take coumadin or noac due to [id number] score=4, in order to lower her irsk of cva, ; her daugter has power of state's attorney and refuses; therefore rec aspirin 81 mg qd if ok with neurology 3.) HTN - with labile bp, hold midodrine due to htn, instructed the nurse to give prn sbp< 100, need to see trends in bp as patient new to me and difficult medicine to use given fluid fluctuation with dialysis; prefer to wean off if tolerated Anshul Gusman MD Aug 26, 2017 20:03
[2017-08-26] MEDS: DOCUSATE SODIUM 100 MG CAP PO SCH (20:40)
[2017-08-26] MEDS: ATORVASTATIN 10 MG TAB PO SCH (20:40)
[2017-08-27] VITALS (10 sets, daily range): BP systolic 135–151; BP diastolic 57–69; PULSE 56–66; RESP 16–18; TEMP 97.7–98.8; O2SAT 94–96
[2017-08-27] MEDS: DILTIAZEM HCL 60 MG TAB PO SCH ×2 (00:04→05:29)
[2017-08-27] MEDS: HEPARIN SODIUM - SQ 10,000 UNITS/ML VIAL SQ SCH ×2 (05:29→15:42)
[2017-08-27] MEDS: METOPROLOL TARTRATE 25 MG TAB PO SCH ×3 (05:29→20:23)
[2017-08-27] MEDS: RESP: ALBUTEROL 2.5 MG/IPRATROPIUM 0.5 MG NEB (SCH) NEB ×3 (08:15→19:23)
--- NOTE | 2017-08-27 09:58 | HHI.PR ---
Subjective Remarks ALERT NAD lying comfortably in bed Objective Vital Signs Date Time Temp Pulse Resp B/P (MAP) Pulse Ox O2 Delivery O2 Flow Rate FiO2 08/27/17 04:13 98.2 62 16 151/69 (96) 96 08/27/17 03:59 61 08/27/17 00:01 97.7 64 18 141/57 (85) 96 08/26/17 23:55 62 08/26/17 22:08 94 21 08/26/17 22:03 61 08/26/17 22:00 Room Air 08/26/17 21:48 97.9 62 14 145/68 (93) 98 08/26/17 19:39 98.2 58 16 142/62 (88) 99 08/26/17 18:00 56 08/26/17 17:00 56 08/26/17 16:00 64 08/26/17 15:00 57 08/26/17 15:00 97.7 68 18 121/64 (83) 93 08/26/17 14:00 52 08/26/17 13:00 52 08/26/17 12:00 50 08/26/17 11:00 58 08/26/17 11:00 97.8 68 18 110/50 (70) 93 08/26/17 10:00 50 I/O 08/26/17 08/26/17 08/26/17 08/27/17 08/27/17 08/27/17 07:00 15:00 23:00 07:00 15:00 23:00 Intake Total 240 ml 720 ml Output Total 250 ml 520 ml Balance -10 ml 200 ml Intake Oral 240 ml 720 ml Output Urine Total 250 ml 520 ml Result Diagram: 08/26/1731608/26/17316 Objective Remarks GENERAL: SKIN: Warm and dry. HEAD: Atraumatic. Normocephalic. EYES: Pupils equal and round. No scleral icterus. No injection or drainage. ENT: No nasal bleeding or discharge. Mucous membranes pink and moist. NECK: Trachea midline. No JVD. CARDIOVASCULAR: Regular rate and rhythm. RESPIRATORY: No accessory muscle use. FEW RHONCHI AT BASIS. Breath sounds equal bilaterally. GASTROINTESTINAL: Abdomen soft, non-tender, nondistended. Hepatic and splenic margins not palpable. MUSCULOSKELETAL: Extremities without clubbing, cyanosis, or edema. No obvious deformities. NEUROLOGICAL: Awake and alert. No obvious cranial nerve deficits. Motor grossly within normal limits. Five out of 5 muscle strength in the arms and legs. Normal speech. PSYCHIATRIC: Appropriate mood and affect; insight and judgment normal. Assessment and Plan Assessment and Plan RESPIRATORY FAILURE , ON O2 COPD EXACERBATION CKD PLAN O2 NEEDED BRONCHODILATORS,steroids Marianela Bear MD Aug 27, 2017 09:58
--- NOTE | 2017-08-27 10:31 | HHI.FPPN ---
Subjective Remarks weak, harsh gurgly cough c/o weakness seen in HD d/w RN Objective Vitals Vital Signs Date Time Temp Pulse Resp B/P (MAP) Pulse Ox O2 Delivery O2 Flow Rate FiO2 08/27/17 04:13 98.2 62 16 151/69 (96) 96 08/27/17 03:59 61 08/27/17 00:01 97.7 64 18 141/57 (85) 96 08/26/17 23:55 62 08/26/17 22:08 94 21 08/26/17 22:03 61 08/26/17 22:00 Room Air 08/26/17 21:48 97.9 62 14 145/68 (93) 98 08/26/17 19:39 98.2 58 16 142/62 (88) 99 08/26/17 18:00 56 08/26/17 17:00 56 08/26/17 16:00 64 08/26/17 15:00 57 08/26/17 15:00 97.7 68 18 121/64 (83) 93 08/26/17 14:00 52 08/26/17 13:00 52 08/26/17 12:00 50 08/26/17 11:00 58 08/26/17 11:00 97.8 68 18 110/50 (70) 93 I/O 08/26/17 08/26/17 08/26/17 08/27/17 08/27/17 08/27/17 07:00 15:00 23:00 07:00 15:00 23:00 Intake Total 240 ml 720 ml Output Total 250 ml 520 ml Balance -10 ml 200 ml Intake Oral 240 ml 720 ml Output Urine Total 250 ml 520 ml Result Diagram: 08/26/17 0317 08/26/17 0317 Imaging Last 72 hours Impressions Chest X-Ray 08/26/17 0000 Signed Impressions: Service Date/Time: Saturday, August 26, 2017 17:32 - CONCLUSION: Lingular infiltrate. Infectious etiology versus atypical pulmonary edema. Claudy Rucker Jr., MD Objective Remarks GENERAL: SKIN: Warm and dry. HEAD: Atraumatic. Normocephalic. EYES: Pupils equal and round. No scleral icterus. No injection or drainage. ENT: No nasal bleeding or discharge. Mucous membranes pink and moist. NECK: Trachea midline. No JVD. CARDIOVASCULAR: Regular rate and rhythm. RESPIRATORY: B crackles and diffuse ronchi in all lung pat, GASTROINTESTINAL: Abdomen soft, non-tender, nondistended. Hepatic and splenic margins not palpable. MUSCULOSKELETAL: Extremities without clubbing, cyanosis, or edema. No obvious deformities. NEUROLOGICAL: Awake and alert. No obvious cranial nerve deficits. Motor grossly within normal limits. 2 out of 5 muscle strength in the arms and legs. Normal speech. PSYCHIATRIC: Appropriate mood and affect; insight and judgment normal. Medications and IVs Current Medications Medications (Trade) Dose Ordered Sig/Carlos Route Start Time Stop Time Status Last Admin (Xanax) 1 mg BID PRN PO 08/20/17 15:45 08/25/17 21:40 (Phoslo) 667 mg TIDPC PO 08/20/17 18:30 08/26/17 17:09 (Colace) 200 mg HS PO 08/20/17 21:00 08/26/17 20:40 (PROzac) 20 mg DAILY PO 08/21/17 09:00 08/26/17 09:00 (Neurontin) 100 mg BID PO 08/20/17 21:00 08/26/17 20:40 (Robitussin Liq) 200 mg Q4H PRN PO 08/20/17 15:45 08/21/17 13:52 (Roxicodone) 10 mg Q6HR PRN PO 08/20/17 15:45 08/26/17 13:26 (Tylenol) 650 mg Q4H PRN PO 08/20/17 16:00 (Zofran Inj) 4 mg Q6H PRN IVP 08/20/17 16:00 08/22/17 12:17 (Heparin Inj) 5,000 units Q12H SQ 08/20/17 16:00 08/27/17 05:29 (Narcan Inj) 0.4 mg UNSCH PRN IV PUSH 08/20/17 16:00 (Marixa-Colace) 1 tab BID PO 08/20/17 21:00 08/26/17 20:40 (Milk Of Magnesia Liq) 30 ml Q12H PRN PO 08/20/17 16:00 (Senokot) 17.2 mg Q12H PRN PO 08/20/17 16:00 (Dulcolax Supp) 10 mg DAILY PRN RECTAL 08/20/17 16:00 (Lactulose Liq) 30 ml DAILY PRN PO 08/20/17 16:00 (Catapres) 0.1 mg Q6H PRN PO 08/20/17 16:00 08/25/17 14:37 (Protonix Inj) 40 mg Q24H IV PUSH 08/20/17 16:00 08/26/17 17:12 Sodium Chloride 1,000 ml @ 0 mls/hr Q0M PRN OTHER 08/20/17 18:51 (Heparin Inj) 8,000 units UNSCH PRN IV FLUSH 08/20/17 19:00 Sodium Chloride 1,000 ml @ 200 mls/hr Q5H PRN IV 08/20/17 18:51 Sodium Chloride 1,000 ml @ 0 mls/hr Q0M PRN OTHER 08/20/17 18:51 (Mannitol Inj) 12.5 gm UNSCH PRN IV 08/20/17 19:00 Albumin Human 100 ml @ 60 mls/hr UNSCH PRN IV 08/20/17 19:00 (NS Flush) 5 ml UNSCH PRN IV FLUSH 08/20/17 19:00 08/23/17 12:03 (Zofran Inj) 4 mg UNSCH PRN IV PUSH 08/20/17 19:00 08/23/17 12:16 (Tylenol) 650 mg UNSCH PRN PO 08/20/17 19:00 08/21/17 23:28 (Benadryl) 25 mg UNSCH PRN PO 08/20/17 19:00 (Nitrostat Sl) 0.4 mg UNSCH PRN SL 08/20/17 19:00 (Catapres) 0.1 mg UNSCH PRN PO 08/20/17 19:00 08/25/17 16:42 (Epogen Inj) 4,000 units UNSCH PRN IV PUSH 08/20/17 19:00 08/23/17 12:15 (Gelfoam 12 Mm/7 Mm Top) 1 foam UNSCH PRN TOP 08/20/17 19:00 08/23/17 12:15 Diltiazem HCl 125 mg/Sodium Chloride 125 ml @ 5 mls/hr TITRATE PRN IV 08/21/17 21:45 08/24/17 08:44 (Lipitor) 10 mg HS PO 08/23/17 21:00 08/26/17 20:40 (Deltasone) 20 mg BID PO 08/24/17 21:00 08/26/17 20:40 (Levaquin) 750 mg EVERY OTHER DAY PO 08/26/17 09:00 08/26/17 09:20 (Duoneb Neb) 1 ampule Q6HR WHILE AWAKE NEB NEB 08/24/17 14:00 08/26/17 22:06 (Duoneb Neb) 1 ampule Q4HR NEB PRN NEB 08/24/17 10:45 (Cardizem) 60 mg Q6HR PO 08/24/17 12:00 08/27/17 05:29 (Lopressor) 25 mg Q8HR PO 08/24/17 14:00 08/27/17 05:29 (Wellbutrin Sr) 150 mg DAILY PO 08/25/17 09:00 08/26/17 09:20 (Symbicort 80-4.5 Mcg Inh) 2 puff Q12HR INH 08/24/17 21:00 08/26/17 20:41 (NS Flush) 2 ml UNSCH PRN IV FLUSH 08/25/17 14:00 (NS Flush) 2 ml BID IV FLUSH 08/25/17 21:00 08/26/17 20:42 (Proamatine) 10 mg TID PRN PO 08/26/17 16:30 A/P Assessment and Plan ASSESSMENT AND PLAN: 66 YEAR OLD CF, DISCHARGED TO [facility] AFTER RECENT ADMIT WITH SEPSIS, NEUTROPENIC HCAP, RETURNED WITH COPD EXAC... Chronic obstructive pulmonary disease exacerbation: iv steroids, abx, pulm consult, HCAP: ON ABX, MONITOR FOR C DIF NEW AF RVR: CARDIO CONSULT, iv diltazem GTT, LHC NOTED, RECCOMENDED MEDICAL MANAGEMENT, NEED FURTHER COAG RECS- asa if ok w neurology, CAD S/P LHC Fluid overload. End-stage renal disease, on hemodialysis. Active smoker. Recent history of Clostridium difficile. Neutropenia: heme/onc consult, Follow up her blood cultures. Recent sepsis and pneumonia. Type 2 diabetes. Heparin 5000 units b.i.d. for PX Midodrine 10 mg t.i.d. scheduled. Oxycodone p.r.n. GI prophylaxis with Protonix 40 IV daily. Physical therapy. Occupational therapy. Alli Watkins MD Aug 27, 2017 10:31
[2017-08-27] MEDS: GELATIN 12 MM/7 MM FOAM TOP PRN (11:18)
[2017-08-27] MEDS: EPOETIN ALFA 10,000 UNITS/ML VIAL IV PUSH PRN (11:18)
[2017-08-27] MEDS: BUDESONIDE-FORMOTEROL 80/4.5 MCG INHALER INH SCH ×2 (11:48→20:26)
[2017-08-27] MEDS: CALCIUM ACETATE 667 MG CAP PO SCH ×3 (11:51→18:03)
[2017-08-27] MEDS: buPROPion HCL 150 MG SUSTAINED RELEASE TAB PO SCH (11:51)
[2017-08-27] MEDS: FLUoxetine HCL 20 MG CAP PO SCH (11:52)
[2017-08-27] MEDS: predniSONE 20 MG TAB PO SCH ×2 (11:52→20:23)
[2017-08-27] MEDS: DOCUSATE SODIUM 50 MG/SENNA 8.6 MG TAB PO SCH ×2 (11:52→20:23)
[2017-08-27] MEDS: GABAPENTIN 100 MG CAP PO SCH ×2 (11:52→20:23)
[2017-08-27] MEDS: SODIUM CHLORIDE 0.9% FLUSH 10 ML FLUSH IV FLUSH SCH ×2 (11:58→20:26)
[2017-08-27] MEDS: DILTIAZEM HCL 30 MG TAB PO SCH ×2 (12:00→18:00)
--- NOTE | 2017-08-27 13:31 | HHI.NPPN ---
Subjective History of Present Illness 66 year old female with ESRD CHF COPD Additional Remarks Patient usually dialyzes TTS. Review of Systems General Constitutional: Fatigue Respiratory Lungs: SOB Objective Data Data 08/27/17 08/28/17 19:00 07:00 Output Total 1800 ml Balance -1800 ml Hemodialysis 1800 ml Vital Signs Date Time Temp Pulse Resp B/P (MAP) Pulse Ox O2 Delivery O2 Flow Rate FiO2 08/27/17 08:00 56 08/27/17 07:00 Room Air 08/27/17 04:13 98.2 62 16 151/69 (96) 96 08/27/17 03:59 61 08/27/17 00:01 97.7 64 18 141/57 (85) 96 08/26/17 23:55 62 08/26/17 22:08 94 21 08/26/17 22:03 61 08/26/17 22:00 Room Air 08/26/17 21:48 97.9 62 14 145/68 (93) 98 08/26/17 19:39 98.2 58 16 142/62 (88) 99 08/26/17 18:00 56 08/26/17 17:00 56 08/26/17 16:00 64 08/26/17 15:00 57 08/26/17 15:00 97.7 68 18 121/64 (83) 93 08/26/17 14:00 52 -: 08/26/17 0317 08/26/17 0317 Physical Exam Eyes Eye Exam: Pupils Equal Pulmonary Resp Exam: Decreased Bases Cardiology CV Exam: Regular Gastrointestinal/Abdomen GI Exam: Soft, Non-Tender, Positive Bowel Movement Extremeties Extremities Exam: No Edema Assessment/Plan Problem List: (1) ESRD (end stage renal disease) ICD Codes: N18.6 - End stage renal disease Status: Chronic Plan: Usually dialyzes TTS, on her outpatient schedule. Monitor fluid and electrolytes. CAD medical management HD 1.8 L off tolerated it well on Diltiazem for A fib (2) COPD with acute exacerbation ICD Codes: J44.1 - Chronic obstructive pulmonary disease with (acute) exacerbation Status: Acute Plan: Improved. (3) DM (diabetes mellitus) ICD Codes: E11.9 - Type 2 diabetes mellitus without complications Status: Chronic Plan: continue insulin coverage. (4) Hyperkalemia ICD Codes: E87.5 - Hyperkalemia Plan: give Kayexalate (5) Atrial fibrillation ICD Codes: I48.91 - Unspecified atrial fibrillation Status: Acute Plan: Received amiodarone. Rate is controlled. Oscar Jurado MD Aug 27, 2017 13:31
[2017-08-27] MEDS: PANTOPRAZOLE SODIUM 40 MG VIAL IV PUSH SCH (15:40)
--- NOTE | 2017-08-27 15:43 | PD.CONS ---
History of Present Illness Service Neurology Consult Requested By cardio Reason for Consult anticoagulation Primary Care Physician Alli Watkins MD History of Present Illness 66-year-old female with history of brain aneurysm, COPD, lung cancer status post wedge resection left lung, ESRD, chronic cigarette smoker who had been admitted with exacerbation of COPD. During her admission she was noted to be in atrial fibrillation with rapid ventricular response, and neurology was consulted for opinion on anticoagulation due to her history of aneurysm. This question has been answered on consult note 08/23/2017. cardiology reconsulted for same question. pt also seen by neurosurgery. cta brain-basilar aneurysm coil done in [place]. cta neck- nml. no headache. does have orthostatic hypotension and takes midodrine for this. Allergies: Coded Allergies: morphine (Verified Allergy, Severe, RASH, 08/20/17) ciprofloxacin (Verified Adverse Reaction, Intermediate, NAUSEAS, 08/20/17) codeine (Verified Adverse Reaction, Intermediate, Vertigo, 08/20/17) Past Medical History Basilar artery aneurysm, status post coiling COPD CHF Hypertension Lung cancer Smoking End-stage renal disease Diabetes Past Surgical History Basilar aneurysm coiling 7 years ago AV fistula left arm lung wedge resection Rt femur repair Cholecystectomy heart cath Family History noncontributory Social History lives with daughter, History of daily smoking, infrequent alcohol use, no drugs Review of Systems Constitutional: Negative except HPI Review of Systems Constitutional: Negative except HPI Eye: Negative Except HPI ENMT: Negative except HPI Respiratory: Negative except HPI Cardiovascular: Negative except HPI Gastrointestinal: Negative except HPI Tom/Lymph: Negative except HPI Musculoskeletal: Negative except HPI Neurologic: Negative except HPI Psychiatric: Negative except HPI All other ROS: ROS reviewed as documented in chart Past Family Social History Allergies: Coded Allergies: morphine (Verified Allergy, Severe, RASH, 08/20/17) ciprofloxacin (Verified Adverse Reaction, Intermediate, NAUSEAS, 08/20/17) codeine (Verified Adverse Reaction, Intermediate, Vertigo, 08/20/17) Active Ordered Medications Current Medications Medications (Trade) Dose Ordered Sig/Carlos Route Start Time Stop Time Status Last Admin (Xanax) 1 mg BID PRN PO 08/20/17 15:45 08/25/17 21:40 (Phoslo) 667 mg TIDPC PO 08/20/17 18:30 08/27/17 13:25 (Colace) 200 mg HS PO 08/20/17 21:00 08/26/17 20:40 (PROzac) 20 mg DAILY PO 08/21/17 09:00 08/27/17 11:52 (Neurontin) 100 mg BID PO 08/20/17 21:00 08/27/17 11:52 (Robitussin Liq) 200 mg Q4H PRN PO 08/20/17 15:45 08/21/17 13:52 (Roxicodone) 10 mg Q6HR PRN PO 08/20/17 15:45 08/27/17 11:50 (Tylenol) 650 mg Q4H PRN PO 08/20/17 16:00 (Zofran Inj) 4 mg Q6H PRN IVP 08/20/17 16:00 08/22/17 12:17 (Heparin Inj) 5,000 units Q12H SQ 08/20/17 16:00 08/27/17 05:29 (Narcan Inj) 0.4 mg UNSCH PRN IV PUSH 08/20/17 16:00 (Marixa-Colace) 1 tab BID PO 08/20/17 21:00 08/27/17 11:52 (Milk Of Magnesia Liq) 30 ml Q12H PRN PO 08/20/17 16:00 (Senokot) 17.2 mg Q12H PRN PO 08/20/17 16:00 (Dulcolax Supp) 10 mg DAILY PRN RECTAL 08/20/17 16:00 (Lactulose Liq) 30 ml DAILY PRN PO 08/20/17 16:00 (Catapres) 0.1 mg Q6H PRN PO 08/20/17 16:00 08/25/17 14:37 (Protonix Inj) 40 mg Q24H IV PUSH 08/20/17 16:00 08/26/17 17:12 Sodium Chloride 1,000 ml @ 0 mls/hr Q0M PRN OTHER 08/20/17 18:51 (Heparin Inj) 8,000 units UNSCH PRN IV FLUSH 08/20/17 19:00 Sodium Chloride 1,000 ml @ 200 mls/hr Q5H PRN IV 08/20/17 18:51 Sodium Chloride 1,000 ml @ 0 mls/hr Q0M PRN OTHER 08/20/17 18:51 (Mannitol Inj) 12.5 gm UNSCH PRN IV 08/20/17 19:00 Albumin Human 100 ml @ 60 mls/hr UNSCH PRN IV 08/20/17 19:00 (NS Flush) 5 ml UNSCH PRN IV FLUSH 08/20/17 19:00 08/23/17 12:03 (Zofran Inj) 4 mg UNSCH PRN IV PUSH 08/20/17 19:00 08/23/17 12:16 (Tylenol) 650 mg UNSCH PRN PO 08/20/17 19:00 08/21/17 23:28 (Benadryl) 25 mg UNSCH PRN PO 08/20/17 19:00 (Nitrostat Sl) 0.4 mg UNSCH PRN SL 08/20/17 19:00 (Catapres) 0.1 mg UNSCH PRN PO 08/20/17 19:00 08/25/17 16:42 (Epogen Inj) 4,000 units UNSCH PRN IV PUSH 08/20/17 19:00 08/27/17 11:18 (Gelfoam 12 Mm/7 Mm Top) 1 foam UNSCH PRN TOP 08/20/17 19:00 08/27/17 11:18 Diltiazem HCl 125 mg/Sodium Chloride 125 ml @ 5 mls/hr TITRATE PRN IV 08/21/17 21:45 08/24/17 08:44 (Lipitor) 10 mg HS PO 08/23/17 21:00 08/26/17 20:40 (Deltasone) 20 mg BID PO 08/24/17 21:00 08/27/17 11:52 (Levaquin) 750 mg EVERY OTHER DAY PO 08/26/17 09:00 08/26/17 09:20 (Duoneb Neb) 1 ampule Q6HR WHILE AWAKE NEB NEB 08/24/17 14:00 08/27/17 13:56 (Duoneb Neb) 1 ampule Q4HR NEB PRN NEB 08/24/17 10:45 (Lopressor) 25 mg Q8HR PO 08/24/17 14:00 08/27/17 13:25 (Wellbutrin Sr) 150 mg DAILY PO 08/25/17 09:00 08/27/17 11:51 (Symbicort 80-4.5 Mcg Inh) 2 puff Q12HR INH 08/24/17 21:00 08/27/17 11:48 (NS Flush) 2 ml UNSCH PRN IV FLUSH 08/25/17 14:00 (NS Flush) 2 ml BID IV FLUSH 08/25/17 21:00 08/27/17 11:58 (Proamatine) 10 mg TID PRN PO 08/26/17 16:30 (Cardizem) 30 mg Q6HR PO 08/27/17 12:00 Exam I&O / VS 08/27/17 08/27/17 08/28/17 15:00 23:00 07:00 Output Total 1800 ml Balance -1800 ml Hemodialysis 1800 ml Vital Signs Date Time Temp Pulse Resp B/P (MAP) Pulse Ox O2 Delivery O2 Flow Rate FiO2 08/27/17 13:56 97.8 63 17 135/62 (86) 96 08/27/17 13:56 96 21 08/27/17 08:00 56 08/27/17 07:00 Room Air 08/27/17 04:13 98.2 62 16 151/69 (96) 96 08/27/17 03:59 61 08/27/17 00:01 97.7 64 18 141/57 (85) 96 08/26/17 23:55 62 08/26/17 22:08 94 21 08/26/17 22:03 61 08/26/17 22:00 Room Air 08/26/17 21:48 97.9 62 14 145/68 (93) 98 08/26/17 19:39 98.2 58 16 142/62 (88) 99 08/26/17 18:00 56 08/26/17 17:00 56 08/26/17 16:00 64 General: Alert and Oriented, No acute distress Eye: PERRL, EOMI Respiratory: Lungs CTA, Non-labored respirations Cardiology: Regular Rhythm Musculoskeletal: ROM Neurologic: Alert, Oriented, Normal sensory, Normal motor, No focal defects, CN II-XII intact, Normal DTR's Psychiatric: Cooperative, Appropriate mood & affect Review/Management Diagnosis/Plan: (1) Aneurysm of basilar artery ICD Codes: I72.5 - Aneurysm of other precerebral arteries Status: Chronic Plan: stable cta basilar tip aneurysm coiled in [facility] (2) Atrial fibrillation ICD Codes: I48.91 - Unspecified atrial fibrillation Status: Acute Plan: per cardiology if cardiology feels that the pt would benefit from the addition of aspirin to anticoagulation, that can be added although risk of bleed would increase. r/b perfecto be deferred to cardiology please review previous consult notes from neurology and neurosurgery (3) ESRD (end stage renal disease) ICD Codes: N18.6 - End stage renal disease Status: Chronic Plan: Per nephrology Cannot obtain contrast studies (4) Hypotension ICD Codes: I95.9 - Hypotension Status: Chronic Plan: on Janes Cano MD Aug 27, 2017 15:43
--- NOTE | 2017-08-27 17:25 | PD.CARD.PN ---
Subjective Subjective Remarks alert in nad Objective Medications Current Medications Medications (Trade) Dose Ordered Sig/Carlos Route Start Time Stop Time Status Last Admin (Xanax) 1 mg BID PRN PO 08/20/17 15:45 08/25/17 21:40 (Phoslo) 667 mg TIDPC PO 08/20/17 18:30 08/27/17 13:25 (Colace) 200 mg HS PO 08/20/17 21:00 08/26/17 20:40 (PROzac) 20 mg DAILY PO 08/21/17 09:00 08/27/17 11:52 (Neurontin) 100 mg BID PO 08/20/17 21:00 08/27/17 11:52 (Robitussin Liq) 200 mg Q4H PRN PO 08/20/17 15:45 08/21/17 13:52 (Roxicodone) 10 mg Q6HR PRN PO 08/20/17 15:45 08/27/17 11:50 (Tylenol) 650 mg Q4H PRN PO 08/20/17 16:00 (Zofran Inj) 4 mg Q6H PRN IVP 08/20/17 16:00 08/22/17 12:17 (Heparin Inj) 5,000 units Q12H SQ 08/20/17 16:00 08/27/17 15:42 (Narcan Inj) 0.4 mg UNSCH PRN IV PUSH 08/20/17 16:00 (Marixa-Colace) 1 tab BID PO 08/20/17 21:00 08/27/17 11:52 (Milk Of Magnesia Liq) 30 ml Q12H PRN PO 08/20/17 16:00 (Senokot) 17.2 mg Q12H PRN PO 08/20/17 16:00 (Dulcolax Supp) 10 mg DAILY PRN RECTAL 08/20/17 16:00 (Lactulose Liq) 30 ml DAILY PRN PO 08/20/17 16:00 (Catapres) 0.1 mg Q6H PRN PO 08/20/17 16:00 08/25/17 14:37 (Protonix Inj) 40 mg Q24H IV PUSH 08/20/17 16:00 08/27/17 15:40 Sodium Chloride 1,000 ml @ 0 mls/hr Q0M PRN OTHER 08/20/17 18:51 (Heparin Inj) 8,000 units UNSCH PRN IV FLUSH 08/20/17 19:00 Sodium Chloride 1,000 ml @ 200 mls/hr Q5H PRN IV 08/20/17 18:51 Sodium Chloride 1,000 ml @ 0 mls/hr Q0M PRN OTHER 08/20/17 18:51 (Mannitol Inj) 12.5 gm UNSCH PRN IV 08/20/17 19:00 Albumin Human 100 ml @ 60 mls/hr UNSCH PRN IV 08/20/17 19:00 (NS Flush) 5 ml UNSCH PRN IV FLUSH 08/20/17 19:00 08/23/17 12:03 (Zofran Inj) 4 mg UNSCH PRN IV PUSH 08/20/17 19:00 08/23/17 12:16 (Tylenol) 650 mg UNSCH PRN PO 08/20/17 19:00 08/21/17 23:28 (Benadryl) 25 mg UNSCH PRN PO 08/20/17 19:00 (Nitrostat Sl) 0.4 mg UNSCH PRN SL 08/20/17 19:00 (Catapres) 0.1 mg UNSCH PRN PO 08/20/17 19:00 08/25/17 16:42 (Epogen Inj) 4,000 units UNSCH PRN IV PUSH 08/20/17 19:00 08/27/17 11:18 (Gelfoam 12 Mm/7 Mm Top) 1 foam UNSCH PRN TOP 08/20/17 19:00 08/27/17 11:18 Diltiazem HCl 125 mg/Sodium Chloride 125 ml @ 5 mls/hr TITRATE PRN IV 08/21/17 21:45 08/24/17 08:44 (Lipitor) 10 mg HS PO 08/23/17 21:00 08/26/17 20:40 (Deltasone) 20 mg BID PO 08/24/17 21:00 08/27/17 11:52 (Levaquin) 750 mg EVERY OTHER DAY PO 08/26/17 09:00 08/26/17 09:20 (Duoneb Neb) 1 ampule Q6HR WHILE AWAKE NEB NEB 08/24/17 14:00 08/27/17 13:56 (Duoneb Neb) 1 ampule Q4HR NEB PRN NEB 08/24/17 10:45 (Lopressor) 25 mg Q8HR PO 08/24/17 14:00 08/27/17 13:25 (Wellbutrin Sr) 150 mg DAILY PO 08/25/17 09:00 08/27/17 11:51 (Symbicort 80-4.5 Mcg Inh) 2 puff Q12HR INH 08/24/17 21:00 08/27/17 11:48 (NS Flush) 2 ml UNSCH PRN IV FLUSH 08/25/17 14:00 (NS Flush) 2 ml BID IV FLUSH 08/25/17 21:00 08/27/17 11:58 (Proamatine) 10 mg TID PRN PO 08/26/17 16:30 (Cardizem) 30 mg Q6HR PO 08/27/17 12:00 Vital Signs / I&O Vital Signs Date Time Temp Pulse Resp B/P (MAP) Pulse Ox O2 Delivery O2 Flow Rate FiO2 08/27/17 13:56 97.8 63 17 135/62 (86) 96 08/27/17 13:56 96 21 08/27/17 08:00 56 08/27/17 07:00 Room Air 08/27/17 04:13 98.2 62 16 151/69 (96) 96 08/27/17 03:59 61 08/27/17 00:01 97.7 64 18 141/57 (85) 96 08/26/17 23:55 62 08/26/17 22:08 94 21 08/26/17 22:03 61 08/26/17 22:00 Room Air 08/26/17 21:48 97.9 62 14 145/68 (93) 98 08/26/17 19:39 98.2 58 16 142/62 (88) 99 08/26/17 18:00 56 I/O 08/26/17 08/26/17 08/26/17 08/27/17 08/27/17 08/27/17 07:00 15:00 23:00 07:00 15:00 23:00 Intake Total 240 ml 720 ml Output Total 250 ml 520 ml 1800 ml Balance -10 ml 200 ml -1800 ml Intake Oral 240 ml 720 ml Output Urine Total 250 ml 520 ml Hemodialysis 1800 ml Imaging GENERAL: SKIN: Warm and dry. HEAD: Normocephalic. EYES: No scleral icterus. No injection or drainage. NECK: Supple, trachea midline. No JVD or lymphadenopathy. CARDIOVASCULAR: Regular rate and rhythm without murmurs, gallops, or rubs. RESPIRATORY: Breath sounds equal bilaterally. No accessory muscle use. GASTROINTESTINAL: Abdomen soft, non-tender, nondistended. MUSCULOSKELETAL: No cyanosis, or edema. BACK: Nontender without obvious deformity. No CVA tenderness. Assessment and Plan Problem List: (1) Unstable angina ICD Codes: I20.0 - Unstable angina (2) CHF (congestive heart failure) ICD Codes: I50.9 - Heart failure, unspecified (3) COPD (chronic obstructive pulmonary disease) ICD Codes: J44.9 - Chronic obstructive pulmonary disease, unspecified Status: Chronic (4) Shortness of breath ICD Codes: R06.02 - Shortness of breath (5) Chronic kidney disease ICD Codes: N18.9 - Chronic kidney disease, unspecified Status: Chronic (6) Atrial fibrillation ICD Codes: I48.91 - Unspecified atrial fibrillation Status: Acute (7) DM (diabetes mellitus) ICD Codes: E11.9 - Type 2 diabetes mellitus without complications Status: Chronic (8) ESRD (end stage renal disease) ICD Codes: N18.6 - End stage renal disease Status: Chronic (9) COPD with acute exacerbation ICD Codes: J44.1 - Chronic obstructive pulmonary disease with (acute) exacerbation Status: Acute (10) Normocytic anemia ICD Codes: D64.9 - Anemia, unspecified Status: Chronic Assessment and Plan 1.) USA/CAD - mild to mod lm cad on cath, continuet lipitor 10 mg hs 2.) Afib - convert cardizem drip to po, I d/w Dr Parada and read Dr Ortega' note who both say ac for afib, she said coumadin or noac ok to use without antiplatelet agent. i advised her daughter on 08/25/17 for the patient to take coumadin or noac due to [id number] score=4, in order to lower her irsk of cva, ; her daugter has power of litigation attorney and refuses; neurology has cleared her for aspirin 81 mg qd, will start if her daughter, poa, approves. 3.) HTN - with labile bp, hold midodrine due to htn, instructed the nurse to give prn sbp< 100, need to see trends in bp as patient new to me and difficult medicine to use given fluid fluctuation with dialysis; prefer to wean off if tolerated Anshul Gusman MD Aug 27, 2017 17:25
[2017-08-27] MEDS: DOCUSATE SODIUM 100 MG CAP PO SCH (20:22)
[2017-08-27] MEDS: ATORVASTATIN 10 MG TAB PO SCH (20:23)
[2017-08-27] MEDS: ALPRAZolam 1 MG TAB PO PRN (21:56)
[2017-08-28] VITALS (10 sets, daily range): BP systolic 67–146; BP diastolic 58–67; PULSE 58–69; RESP 14–19; TEMP 97.3–98.7; O2SAT 94–98
[2017-08-28] MEDS: DILTIAZEM HCL 30 MG TAB PO SCH ×5 (00:04→22:55)
[2017-08-28] MEDS: METOPROLOL TARTRATE 25 MG TAB PO SCH ×3 (05:29→21:05)
[2017-08-28] MEDS: HEPARIN SODIUM - SQ 10,000 UNITS/ML VIAL SQ SCH ×2 (05:31→16:24)
[2017-08-28] MEDS: BUDESONIDE-FORMOTEROL 80/4.5 MCG INHALER INH SCH ×2 (08:29→21:05)
[2017-08-28] MEDS: GABAPENTIN 100 MG CAP PO SCH ×2 (08:31→21:05)
[2017-08-28] MEDS: DOCUSATE SODIUM 50 MG/SENNA 8.6 MG TAB PO SCH ×2 (08:31→21:00)
[2017-08-28] MEDS: buPROPion HCL 150 MG SUSTAINED RELEASE TAB PO SCH (08:31)
[2017-08-28] MEDS: predniSONE 20 MG TAB PO SCH ×2 (08:31→21:05)
[2017-08-28] MEDS: CALCIUM ACETATE 667 MG CAP PO SCH ×3 (08:31→17:35)
[2017-08-28] MEDS: LEVOFLOXACIN 750 MG TAB PO SCH (08:32)
[2017-08-28] MEDS: FLUoxetine HCL 20 MG CAP PO SCH (08:32)
[2017-08-28] MEDS: SODIUM CHLORIDE 0.9% FLUSH 10 ML FLUSH IV FLUSH SCH ×2 (08:33→21:06)
[2017-08-28] MEDS: RESP: ALBUTEROL 2.5 MG/IPRATROPIUM 0.5 MG NEB (SCH) NEB (08:37)
--- NOTE | 2017-08-28 09:37 | HHI.PR ---
Review/Management Diagnosis/Plan: (1) Aneurysm of basilar artery ICD Codes: I72.5 - Aneurysm of other precerebral arteries Status: Chronic Plan: stable cta basilar tip aneurysm coiled in [facility] neuro stable ok for d/c d/w pt tobacco cessation and risk of stroke/ich/aneurysm rupture with continued use can f/u with us outpatient (2) Atrial fibrillation ICD Codes: I48.91 - Unspecified atrial fibrillation Status: Acute Plan: per cardiology if cardiology feels that the pt would benefit from the addition of aspirin to anticoagulation, that can be added although risk of bleed would increase. r/b perfecto be deferred to cardiology please review previous consult notes from neurology and neurosurgery (3) ESRD (end stage renal disease) ICD Codes: N18.6 - End stage renal disease Status: Chronic Plan: Per nephrology Cannot obtain contrast studies (4) Hypotension ICD Codes: I95.9 - Hypotension Status: Chronic Plan: on midodrine Subjective Subjective Comments No acute events reported No headache No chest pain No dyspnea Active Medications Current Medications Medications (Trade) Dose Ordered Sig/Carlos Route Start Time Stop Time Status Last Admin (Xanax) 1 mg BID PRN PO 08/20/17 15:45 08/27/17 21:56 (Phoslo) 667 mg TIDPC PO 08/20/17 18:30 08/28/17 08:31 (Colace) 200 mg HS PO 08/20/17 21:00 08/26/17 20:40 (PROzac) 20 mg DAILY PO 08/21/17 09:00 08/28/17 08:32 (Neurontin) 100 mg BID PO 08/20/17 21:00 08/28/17 08:31 (Robitussin Liq) 200 mg Q4H PRN PO 08/20/17 15:45 08/21/17 13:52 (Roxicodone) 10 mg Q6HR PRN PO 08/20/17 15:45 08/27/17 20:24 (Tylenol) 650 mg Q4H PRN PO 08/20/17 16:00 (Zofran Inj) 4 mg Q6H PRN IVP 08/20/17 16:00 08/22/17 12:17 (Heparin Inj) 5,000 units Q12H SQ 08/20/17 16:00 08/28/17 05:31 (Narcan Inj) 0.4 mg UNSCH PRN IV PUSH 08/20/17 16:00 (Marixa-Colace) 1 tab BID PO 08/20/17 21:00 08/27/17 11:52 (Milk Of Magnesia Liq) 30 ml Q12H PRN PO 08/20/17 16:00 (Senokot) 17.2 mg Q12H PRN PO 08/20/17 16:00 (Dulcolax Supp) 10 mg DAILY PRN RECTAL 08/20/17 16:00 (Lactulose Liq) 30 ml DAILY PRN PO 08/20/17 16:00 (Catapres) 0.1 mg Q6H PRN PO 08/20/17 16:00 08/25/17 14:37 (Protonix Inj) 40 mg Q24H IV PUSH 08/20/17 16:00 08/27/17 15:40 Sodium Chloride 1,000 ml @ 0 mls/hr Q0M PRN OTHER 08/20/17 18:51 (Heparin Inj) 8,000 units UNSCH PRN IV FLUSH 08/20/17 19:00 Sodium Chloride 1,000 ml @ 200 mls/hr Q5H PRN IV 08/20/17 18:51 Sodium Chloride 1,000 ml @ 0 mls/hr Q0M PRN OTHER 08/20/17 18:51 (Mannitol Inj) 12.5 gm UNSCH PRN IV 08/20/17 19:00 Albumin Human 100 ml @ 60 mls/hr UNSCH PRN IV 08/20/17 19:00 (NS Flush) 5 ml UNSCH PRN IV FLUSH 08/20/17 19:00 08/23/17 12:03 (Zofran Inj) 4 mg UNSCH PRN IV PUSH 08/20/17 19:00 08/23/17 12:16 (Tylenol) 650 mg UNSCH PRN PO 08/20/17 19:00 08/21/17 23:28 (Benadryl) 25 mg UNSCH PRN PO 08/20/17 19:00 (Nitrostat Sl) 0.4 mg UNSCH PRN SL 08/20/17 19:00 (Catapres) 0.1 mg UNSCH PRN PO 08/20/17 19:00 08/25/17 16:42 (Epogen Inj) 4,000 units UNSCH PRN IV PUSH 08/20/17 19:00 08/27/17 11:18 (Gelfoam 12 Mm/7 Mm Top) 1 foam UNSCH PRN TOP 08/20/17 19:00 08/27/17 11:18 Diltiazem HCl 125 mg/Sodium Chloride 125 ml @ 5 mls/hr TITRATE PRN IV 08/21/17 21:45 08/24/17 08:44 (Lipitor) 10 mg HS PO 08/23/17 21:00 08/27/17 20:23 (Deltasone) 20 mg BID PO 08/24/17 21:00 08/28/17 08:31 (Levaquin) 750 mg EVERY OTHER DAY PO 08/26/17 09:00 08/28/17 08:32 (Duoneb Neb) 1 ampule Q6HR WHILE AWAKE NEB NEB 08/24/17 14:00 08/28/17 08:37 (Duoneb Neb) 1 ampule Q4HR NEB PRN NEB 08/24/17 10:45 (Lopressor) 25 mg Q8HR PO 08/24/17 14:00 08/28/17 05:29 (Wellbutrin Sr) 150 mg DAILY PO 08/25/17 09:00 08/28/17 08:31 (Symbicort 80-4.5 Mcg Inh) 2 puff Q12HR INH 08/24/17 21:00 08/28/17 08:29 (NS Flush) 2 ml UNSCH PRN IV FLUSH 08/25/17 14:00 (NS Flush) 2 ml BID IV FLUSH 08/25/17 21:00 08/28/17 08:33 (Proamatine) 10 mg TID PRN PO 08/26/17 16:30 (Cardizem) 30 mg Q6HR PO 08/27/17 12:00 08/28/17 05:29 Allergies Allergies Coded Allergies morphine (Verified Allergy, Severe, RASH, 08/20/17) ciprofloxacin (Verified Adverse Reaction, Intermediate, NAUSEAS, 08/20/17) codeine (Verified Adverse Reaction, Intermediate, Vertigo, 08/20/17) Review of Systems Constitutional: Negative except HPI Eye: Negative Except HPI ENMT: Negative except HPI Respiratory: Negative except HPI Cardiovascular: Negative except HPI Gastrointestinal: Negative except HPI Tom/Lymph: Negative except HPI Musculoskeletal: Negative except HPI Neurologic: Negative except HPI Psychiatric: Negative except HPI All other ROS: ROS reviewed as documented in chart Exam I&O / VS Vital Signs Date Time Temp Pulse Resp B/P (MAP) Pulse Ox O2 Delivery O2 Flow Rate FiO2 08/28/17 08:39 98 08/28/17 07:28 Room Air 08/28/17 04:00 98.0 65 18 67/ 94 08/28/17 03:53 63 08/28/17 00:02 66 08/27/17 20:40 98.4 62 17 146/64 (91) 96 08/27/17 20:27 Room Air 08/27/17 20:00 66 08/27/17 19:23 94 21 08/27/17 16:00 62 08/27/17 16:00 98.8 62 17 142/62 (88) 95 08/27/17 13:56 97.8 63 17 135/62 (86) 96 08/27/17 13:56 96 21 08/27/17 12:00 58 General: Alert and Oriented, No acute distress Eye: PERRL, EOMI Respiratory: Lungs CTA, Non-labored respirations Cardiology: Regular Rhythm Musculoskeletal: ROM Neurologic: Alert, Oriented, Normal sensory, Normal motor, No focal defects, CN II-XII intact, Normal DTR's Psychiatric: Cooperative, Appropriate mood & affect Objective Micro and Labs Date/Time Source Procedure Growth Status 08/20/17 11:20 Blood Peripheral Aerobic Blood Culture - Final NO GROWTH IN 5 DAYS Complete 08/20/17 11:20 Blood Peripheral Anaerobic Blood Culture - Final NO GROWTH IN 5 DAYS Complete 08/20/17 11:20 Nasal Washing Influenza Types A,B Antigen (LIV) - Final NEGATIVE FOR FLU A AND B ANTIGEN.... Complete Janes Anderson MD Aug 28, 2017 09:37
--- NOTE | 2017-08-28 10:41 | HHI.FPPN ---
Subjective Remarks d/w rn, reports diarrhea less coughing Objective Vitals Vital Signs Date Time Temp Pulse Resp B/P (MAP) Pulse Ox O2 Delivery O2 Flow Rate FiO2 08/28/17 08:39 98 08/28/17 08:00 58 08/28/17 08:00 97.3 63 19 115/58 (77) 96 08/28/17 07:28 Room Air 08/28/17 04:00 98.0 65 18 67/ 94 08/28/17 03:53 63 08/28/17 00:02 66 08/27/17 20:40 98.4 62 17 146/64 (91) 96 08/27/17 20:27 Room Air 08/27/17 20:00 66 08/27/17 19:23 94 21 08/27/17 16:00 62 08/27/17 16:00 98.8 62 17 142/62 (88) 95 08/27/17 13:56 97.8 63 17 135/62 (86) 96 08/27/17 13:56 96 21 08/27/17 12:00 58 I/O 08/27/17 08/27/17 08/27/17 08/28/17 08/28/17 08/28/17 07:00 15:00 23:00 07:00 15:00 23:00 Intake Total 960 ml 480 ml Output Total 1800 ml 450 ml 600 ml Balance -1800 ml 510 ml -120 ml Intake Oral 960 ml 480 ml Output Urine Total 450 ml 600 ml Hemodialysis 1800 ml # Bowel Movements 1 Result Diagram: 08/26/1731608/26/17316 Objective Remarks GENERAL: SKIN: Warm and dry. HEAD: Atraumatic. Normocephalic. EYES: Pupils equal and round. No scleral icterus. No injection or drainage. ENT: No nasal bleeding or discharge. Mucous membranes pink and moist. NECK: Trachea midline. No JVD. CARDIOVASCULAR: Regular rate and rhythm. RESPIRATORY: B crackles and diffuse ronchi in all lung pat, GASTROINTESTINAL: Abdomen soft, non-tender, nondistended. Hepatic and splenic margins not palpable. MUSCULOSKELETAL: Extremities without clubbing, cyanosis, or edema. No obvious deformities. NEUROLOGICAL: Awake and alert. No obvious cranial nerve deficits. Motor grossly within normal limits. 2 out of 5 muscle strength in the arms and legs. Normal speech. PSYCHIATRIC: Appropriate mood and affect; insight and judgment normal. Medications and IVs Current Medications Medications (Trade) Dose Ordered Sig/Carlos Route Start Time Stop Time Status Last Admin (Xanax) 1 mg BID PRN PO 08/20/17 15:45 08/27/17 21:56 (Phoslo) 667 mg TIDPC PO 08/20/17 18:30 08/28/17 08:31 (Colace) 200 mg HS PO 08/20/17 21:00 08/26/17 20:40 (PROzac) 20 mg DAILY PO 08/21/17 09:00 08/28/17 08:32 (Neurontin) 100 mg BID PO 08/20/17 21:00 08/28/17 08:31 (Robitussin Liq) 200 mg Q4H PRN PO 08/20/17 15:45 08/21/17 13:52 (Roxicodone) 10 mg Q6HR PRN PO 08/20/17 15:45 08/27/17 20:24 (Tylenol) 650 mg Q4H PRN PO 08/20/17 16:00 (Zofran Inj) 4 mg Q6H PRN IVP 08/20/17 16:00 08/22/17 12:17 (Heparin Inj) 5,000 units Q12H SQ 08/20/17 16:00 08/28/17 05:31 (Narcan Inj) 0.4 mg UNSCH PRN IV PUSH 08/20/17 16:00 (Marixa-Colace) 1 tab BID PO 08/20/17 21:00 08/27/17 11:52 (Milk Of Magnesia Liq) 30 ml Q12H PRN PO 08/20/17 16:00 (Senokot) 17.2 mg Q12H PRN PO 08/20/17 16:00 (Dulcolax Supp) 10 mg DAILY PRN RECTAL 08/20/17 16:00 (Lactulose Liq) 30 ml DAILY PRN PO 08/20/17 16:00 (Catapres) 0.1 mg Q6H PRN PO 08/20/17 16:00 08/25/17 14:37 (Protonix Inj) 40 mg Q24H IV PUSH 08/20/17 16:00 08/27/17 15:40 Sodium Chloride 1,000 ml @ 0 mls/hr Q0M PRN OTHER 08/20/17 18:51 (Heparin Inj) 8,000 units UNSCH PRN IV FLUSH 08/20/17 19:00 Sodium Chloride 1,000 ml @ 200 mls/hr Q5H PRN IV 08/20/17 18:51 Sodium Chloride 1,000 ml @ 0 mls/hr Q0M PRN OTHER 08/20/17 18:51 (Mannitol Inj) 12.5 gm UNSCH PRN IV 08/20/17 19:00 Albumin Human 100 ml @ 60 mls/hr UNSCH PRN IV 08/20/17 19:00 (NS Flush) 5 ml UNSCH PRN IV FLUSH 08/20/17 19:00 08/23/17 12:03 (Zofran Inj) 4 mg UNSCH PRN IV PUSH 08/20/17 19:00 08/23/17 12:16 (Tylenol) 650 mg UNSCH PRN PO 08/20/17 19:00 08/21/17 23:28 (Benadryl) 25 mg UNSCH PRN PO 08/20/17 19:00 (Nitrostat Sl) 0.4 mg UNSCH PRN SL 08/20/17 19:00 (Catapres) 0.1 mg UNSCH PRN PO 08/20/17 19:00 08/25/17 16:42 (Epogen Inj) 4,000 units UNSCH PRN IV PUSH 08/20/17 19:00 08/27/17 11:18 (Gelfoam 12 Mm/7 Mm Top) 1 foam UNSCH PRN TOP 08/20/17 19:00 08/27/17 11:18 Diltiazem HCl 125 mg/Sodium Chloride 125 ml @ 5 mls/hr TITRATE PRN IV 08/21/17 21:45 08/24/17 08:44 (Lipitor) 10 mg HS PO 08/23/17 21:00 08/27/17 20:23 (Deltasone) 20 mg BID PO 08/24/17 21:00 08/28/17 08:31 (Levaquin) 750 mg EVERY OTHER DAY PO 08/26/17 09:00 08/28/17 08:32 (Duoneb Neb) 1 ampule Q6HR WHILE AWAKE NEB NEB 08/24/17 14:00 08/28/17 08:37 (Duoneb Neb) 1 ampule Q4HR NEB PRN NEB 08/24/17 10:45 (Lopressor) 25 mg Q8HR PO 08/24/17 14:00 08/28/17 05:29 (Wellbutrin Sr) 150 mg DAILY PO 08/25/17 09:00 08/28/17 08:31 (Symbicort 80-4.5 Mcg Inh) 2 puff Q12HR INH 08/24/17 21:00 08/28/17 08:29 (NS Flush) 2 ml UNSCH PRN IV FLUSH 08/25/17 14:00 (NS Flush) 2 ml BID IV FLUSH 08/25/17 21:00 08/28/17 08:33 (Proamatine) 10 mg TID PRN PO 08/26/17 16:30 (Cardizem) 30 mg Q6HR PO 08/27/17 12:00 08/28/17 05:29 A/P Assessment and Plan ASSESSMENT AND PLAN: 66 YEAR OLD CF, DISCHARGED TO [facility] AFTER RECENT ADMIT WITH SEPSIS, NEUTROPENIC HCAP, RETURNED WITH COPD EXAC... Chronic obstructive pulmonary disease exacerbation: iv steroids, off abx, pulm consult, HCAP: Off ABX, MONITOR FOR C DIF NEW AF RVR: CARDIO CONSULT, iv diltazem GTT, [facility] NOTED, RECCOMENDED MEDICAL MANAGEMENT, coumadin or noac due to [id number] score=4, in order to lower her irsk of cva,; her daugter has power of insurance attorney and refuses; neurology has cleared her for aspirin 81 mg qd, ASA per Dr Gusman CAD S/P [facility] Fluid overload. End-stage renal disease, on hemodialysis. Active smoker. Recent history of Clostridium difficile, return of diarrhea now: c dif, vanco qid po, questran bid, cancel abx as no PNA and c dif likely Neutropenia: heme/onc consult, Follow up her blood cultures. Recent sepsis and pneumonia. Type 2 diabetes. Heparin 5000 units b.i.d. for PX Midodrine 10 mg t.i.d. scheduled. Oxycodone p.r.n. GI prophylaxis with Protonix 40 IV daily. Physical therapy. Occupational therapy. Alli Watkins MD Aug 28, 2017 10:41
[2017-08-28] MEDS: CHOLESTYRAMINE 4 GM PACKET PO SCH ×2 (12:45→21:05)
[2017-08-28] MEDS: VANCOMYCIN 25 MG/ML SOLN 100 ML BOTTLE PO SCH ×3 (12:45→21:05)
--- NOTE | 2017-08-28 14:26 | PD.CARD.PN ---
Subjective Subjective Remarks alert in nad Objective Medications Current Medications Medications (Trade) Dose Ordered Sig/Carlos Route Start Time Stop Time Status Last Admin (Xanax) 1 mg BID PRN PO 08/20/17 15:45 08/27/17 21:56 (Phoslo) 667 mg TIDPC PO 08/20/17 18:30 08/28/17 12:45 (Colace) 200 mg HS PO 08/20/17 21:00 08/26/17 20:40 (PROzac) 20 mg DAILY PO 08/21/17 09:00 08/28/17 08:32 (Neurontin) 100 mg BID PO 08/20/17 21:00 08/28/17 08:31 (Robitussin Liq) 200 mg Q4H PRN PO 08/20/17 15:45 08/21/17 13:52 (Roxicodone) 10 mg Q6HR PRN PO 08/20/17 15:45 08/27/17 20:24 (Tylenol) 650 mg Q4H PRN PO 08/20/17 16:00 (Zofran Inj) 4 mg Q6H PRN IVP 08/20/17 16:00 08/22/17 12:17 (Heparin Inj) 5,000 units Q12H SQ 08/20/17 16:00 08/28/17 05:31 (Narcan Inj) 0.4 mg UNSCH PRN IV PUSH 08/20/17 16:00 (Marixa-Colace) 1 tab BID PO 08/20/17 21:00 08/27/17 11:52 (Milk Of Magnesia Liq) 30 ml Q12H PRN PO 08/20/17 16:00 (Senokot) 17.2 mg Q12H PRN PO 08/20/17 16:00 (Dulcolax Supp) 10 mg DAILY PRN RECTAL 08/20/17 16:00 (Lactulose Liq) 30 ml DAILY PRN PO 08/20/17 16:00 (Catapres) 0.1 mg Q6H PRN PO 08/20/17 16:00 08/25/17 14:37 (Protonix Inj) 40 mg Q24H IV PUSH 08/20/17 16:00 08/27/17 15:40 Sodium Chloride 1,000 ml @ 0 mls/hr Q0M PRN OTHER 08/20/17 18:51 (Heparin Inj) 8,000 units UNSCH PRN IV FLUSH 08/20/17 19:00 Sodium Chloride 1,000 ml @ 200 mls/hr Q5H PRN IV 08/20/17 18:51 Sodium Chloride 1,000 ml @ 0 mls/hr Q0M PRN OTHER 08/20/17 18:51 (Mannitol Inj) 12.5 gm UNSCH PRN IV 08/20/17 19:00 Albumin Human 100 ml @ 60 mls/hr UNSCH PRN IV 08/20/17 19:00 (NS Flush) 5 ml UNSCH PRN IV FLUSH 08/20/17 19:00 08/23/17 12:03 (Zofran Inj) 4 mg UNSCH PRN IV PUSH 08/20/17 19:00 08/23/17 12:16 (Tylenol) 650 mg UNSCH PRN PO 08/20/17 19:00 08/21/17 23:28 (Benadryl) 25 mg UNSCH PRN PO 08/20/17 19:00 (Nitrostat Sl) 0.4 mg UNSCH PRN SL 08/20/17 19:00 (Catapres) 0.1 mg UNSCH PRN PO 08/20/17 19:00 08/25/17 16:42 (Epogen Inj) 4,000 units UNSCH PRN IV PUSH 08/20/17 19:00 08/27/17 11:18 (Gelfoam 12 Mm/7 Mm Top) 1 foam UNSCH PRN TOP 08/20/17 19:00 08/27/17 11:18 Diltiazem HCl 125 mg/Sodium Chloride 125 ml @ 5 mls/hr TITRATE PRN IV 08/21/17 21:45 08/24/17 08:44 (Lipitor) 10 mg HS PO 08/23/17 21:00 08/27/17 20:23 (Deltasone) 20 mg BID PO 08/24/17 21:00 08/28/17 08:31 (Duoneb Neb) 1 ampule Q4HR NEB PRN NEB 08/24/17 10:45 (Lopressor) 25 mg Q8HR PO 08/24/17 14:00 08/28/17 05:29 (Wellbutrin Sr) 150 mg DAILY PO 08/25/17 09:00 08/28/17 08:31 (Symbicort 80-4.5 Mcg Inh) 2 puff Q12HR INH 08/24/17 21:00 08/28/17 08:29 (NS Flush) 2 ml UNSCH PRN IV FLUSH 08/25/17 14:00 (NS Flush) 2 ml BID IV FLUSH 08/25/17 21:00 08/28/17 08:33 (Proamatine) 10 mg TID PRN PO 08/26/17 16:30 (Cardizem) 30 mg Q6HR PO 08/27/17 12:00 08/28/17 12:45 (Vancomycin 25 Mg/ml Liq) 250 mg QID PO 08/28/17 13:00 08/28/17 12:45 (Questran 4 Gm Pkt) 4 gm Q12HR PO 08/28/17 12:00 08/28/17 12:45 Vital Signs / I&O Vital Signs Date Time Temp Pulse Resp B/P (MAP) Pulse Ox O2 Delivery O2 Flow Rate FiO2 08/28/17 12:00 98.1 66 18 146/67 (93) 95 08/28/17 12:00 66 08/28/17 08:39 98 08/28/17 08:00 58 08/28/17 08:00 97.3 63 19 115/58 (77) 96 08/28/17 07:28 Room Air 08/28/17 04:00 98.0 65 18 67/ 94 08/28/17 03:53 63 08/28/17 00:02 66 08/27/17 20:40 98.4 62 17 146/64 (91) 96 08/27/17 20:27 Room Air 08/27/17 20:00 66 08/27/17 19:23 94 21 08/27/17 16:00 62 08/27/17 16:00 98.8 62 17 142/62 (88) 95 I/O 08/27/17 08/27/17 08/27/17 08/28/17 08/28/17 08/28/17 07:00 15:00 23:00 07:00 15:00 23:00 Intake Total 960 ml 480 ml Output Total 1800 ml 450 ml 600 ml Balance -1800 ml 510 ml -120 ml Intake Oral 960 ml 480 ml Output Urine Total 450 ml 600 ml Hemodialysis 1800 ml # Bowel Movements 1 Laboratory GENERAL: SKIN: Warm and dry. HEAD: Normocephalic. EYES: No scleral icterus. No injection or drainage. NECK: Supple, trachea midline. No JVD or lymphadenopathy. CARDIOVASCULAR: Regular rate and rhythm without murmurs, gallops, or rubs. RESPIRATORY: Breath sounds equal bilaterally. No accessory muscle use. GASTROINTESTINAL: Abdomen soft, non-tender, nondistended. MUSCULOSKELETAL: No cyanosis, or edema. BACK: Nontender without obvious deformity. No CVA tenderness. Assessment and Plan Problem List: (1) Unstable angina ICD Codes: I20.0 - Unstable angina (2) CHF (congestive heart failure) ICD Codes: I50.9 - Heart failure, unspecified (3) COPD (chronic obstructive pulmonary disease) ICD Codes: J44.9 - Chronic obstructive pulmonary disease, unspecified Status: Chronic (4) Shortness of breath ICD Codes: R06.02 - Shortness of breath (5) Chronic kidney disease ICD Codes: N18.9 - Chronic kidney disease, unspecified Status: Chronic (6) Atrial fibrillation ICD Codes: I48.91 - Unspecified atrial fibrillation Status: Acute (7) DM (diabetes mellitus) ICD Codes: E11.9 - Type 2 diabetes mellitus without complications Status: Chronic (8) ESRD (end stage renal disease) ICD Codes: N18.6 - End stage renal disease Status: Chronic (9) COPD with acute exacerbation ICD Codes: J44.1 - Chronic obstructive pulmonary disease with (acute) exacerbation Status: Acute (10) Normocytic anemia ICD Codes: D64.9 - Anemia, unspecified Status: Chronic Assessment and Plan 1.) USA/CAD - mild to mod lm cad on cath, continuet lipitor 10 mg hs 2.) Afib - convert cardizem drip to po, I d/w Dr Parada and read Dr Ortega' note who both say ac for afib, she said coumadin or noac ok to use without antiplatelet agent. i advised her daughter on 08/25/17 for the patient to take coumadin or noac due to [id number] score=4, in order to lower her irsk of cva, ; her daugter has power of privacy attorney and refuses; neurology has cleared her for aspirin 81 mg qd, will start if her daughter, hortencia, approves. 3.) HTN - with labile bp, hold midodrine due to htn, instructed the nurse to give prn sbp< 100, need to see trends in bp as patient new to me and difficult medicine to use given fluid fluctuation with dialysis; prefer to wean off if tolerated 4.) I d/w Dr Parada ac, she expressed concern @ combination of antiplatelet and antithrombotic for risk of ich. The patient refuses noac or coumadin, she requests to be on aspirin 81 mg, she understand her risk of cva id higher without coumadin or noac, rec start aspirin 81 mg qd if neurology clears her to be on it while on subq heparin, this needs to be clarified 5.) I am on vacation until september 10, 2017, Dr Arriaga covering me Anshul Gusman MD Aug 28, 2017 14:26
[2017-08-28] MEDS: PANTOPRAZOLE SODIUM 40 MG VIAL IV PUSH SCH (16:24)
--- NOTE | 2017-08-28 16:29 | HHI.PR ---
Subjective Remarks ALERT NAD lying comfortably in bed Objective Vital Signs Date Time Temp Pulse Resp B/P (MAP) Pulse Ox O2 Delivery O2 Flow Rate FiO2 08/28/17 12:00 98.1 66 18 146/67 (93) 95 08/28/17 12:00 66 08/28/17 08:39 98 08/28/17 08:00 58 08/28/17 08:00 97.3 63 19 115/58 (77) 96 08/28/17 07:28 Room Air 08/28/17 04:00 98.0 65 18 67/ 94 08/28/17 03:53 63 08/28/17 00:02 66 08/27/17 20:40 98.4 62 17 146/64 (91) 96 08/27/17 20:27 Room Air 08/27/17 20:00 66 08/27/17 19:23 94 21 I/O 08/27/17 08/27/17 08/27/17 08/28/17 08/28/17 08/28/17 07:00 15:00 23:00 07:00 15:00 23:00 Intake Total 960 ml 480 ml Output Total 1800 ml 450 ml 600 ml Balance -1800 ml 510 ml -120 ml Intake Oral 960 ml 480 ml Output Urine Total 450 ml 600 ml Hemodialysis 1800 ml # Bowel Movements 1 Result Diagram: 08/26/1731608/26/17316 Objective Remarks GENERAL: SKIN: Warm and dry. HEAD: Atraumatic. Normocephalic. EYES: Pupils equal and round. No scleral icterus. No injection or drainage. ENT: No nasal bleeding or discharge. Mucous membranes pink and moist. NECK: Trachea midline. No JVD. CARDIOVASCULAR: Regular rate and rhythm. RESPIRATORY: No accessory muscle use. FEW RHONCHI AT BASIS. Breath sounds equal bilaterally. GASTROINTESTINAL: Abdomen soft, non-tender, nondistended. Hepatic and splenic margins not palpable. MUSCULOSKELETAL: Extremities without clubbing, cyanosis, or edema. No obvious deformities. NEUROLOGICAL: Awake and alert. No obvious cranial nerve deficits. Motor grossly within normal limits. Five out of 5 muscle strength in the arms and legs. Normal speech. PSYCHIATRIC: Appropriate mood and affect; insight and judgment normal. Assessment and Plan Assessment and Plan RESPIRATORY FAILURE , ON O2 COPD EXACERBATION CKD PLAN O2 NEEDED BRONCHODILATORS,steroids FU CXRAY Marianela Bear Wadie MD Aug 28, 2017 16:29
--- NOTE | 2017-08-28 17:30 | RADRPT ---
EXAM DATE/TIME: 08/28/2017 16:53 [facility] COMPARISON: CHEST SINGLE AP, August 20, 2017, 11:45. CT THORAX W/O CONTRAST, August 07, 2017, 19:00. CHEST SINGLE AP, August 26, 2017, 17:32. INDICATIONS : Short of breath. MEDICAL HISTORY : Myocardial infarction. Chronic obstructive pulmonary disease. Emphysema. Renal failure. Diabetes. Hyp otension. Coronary artery disease. SURGICAL HISTORY : Cardiac cath. Lobectomy. ENCOUNTER: Subsequent ACUITY: 3 days PAIN SCORE: Non-responsive. LOCATION: Bilateral chest FINDINGS: Patchy airspace disease is seen in the left midlung. Right lung is clear. Heart and vascularity are normal. The portion of the bony skeleton visualized is unremarkable. CONCLUSION: Stable airspace disease laterally left lung.. There has been very little change from 08/20/17 Blayne Sheets MD FACR on August 28, 2017 at 17:27 Board Certified Radiologist. This report was verified electronically.
--- NOTE | 2017-08-28 19:03 | HHI.NPPN ---
Subjective History of Present Illness 66 year old female with ESRD CHF COPD Additional Remarks Patient usually dialyzes TTS. Review of Systems General Constitutional: Fatigue Respiratory Lungs: SOB Objective Data Data Vital Signs Date Time Temp Pulse Resp B/P (MAP) Pulse Ox O2 Delivery O2 Flow Rate FiO2 08/28/17 16:00 62 08/28/17 12:00 98.1 66 18 146/67 (93) 95 08/28/17 12:00 66 08/28/17 08:39 98 08/28/17 08:00 58 08/28/17 08:00 97.3 63 19 115/58 (77) 96 08/28/17 07:28 Room Air 08/28/17 04:00 98.0 65 18 67/ 94 08/28/17 03:53 63 08/28/17 00:02 66 08/27/17 20:40 98.4 62 17 146/64 (91) 96 08/27/17 20:27 Room Air 08/27/17 20:00 66 08/27/17 19:23 94 21 -: 08/26/17 0317 08/26/17 0317 Physical Exam Eyes Eye Exam: Pupils Equal Pulmonary Resp Exam: Decreased Bases Cardiology CV Exam: Regular Gastrointestinal/Abdomen GI Exam: Soft, Non-Tender, Positive Bowel Movement Extremeties Extremities Exam: No Edema Assessment/Plan Problem List: (1) ESRD (end stage renal disease) ICD Codes: N18.6 - End stage renal disease Status: Chronic Plan: Usually dialyzes TTS, on her outpatient schedule. Monitor fluid and electrolytes. CAD medical management HD due tomorrow on Diltiazem for A fib (2) COPD with acute exacerbation ICD Codes: J44.1 - Chronic obstructive pulmonary disease with (acute) exacerbation Status: Acute Plan: Improved. (3) DM (diabetes mellitus) ICD Codes: E11.9 - Type 2 diabetes mellitus without complications Status: Chronic Plan: continue insulin coverage. (4) Hyperkalemia ICD Codes: E87.5 - Hyperkalemia Plan: give Kayexalate (5) Atrial fibrillation ICD Codes: I48.91 - Unspecified atrial fibrillation Status: Acute Plan: Received amiodarone. Rate is controlled. Oscar Juraod MD Aug 28, 2017 19:03
[2017-08-28] MEDS: DOCUSATE SODIUM 100 MG CAP PO SCH (21:00)
[2017-08-28] MEDS: ATORVASTATIN 10 MG TAB PO SCH (21:05)
[2017-08-28] MEDS: ALPRAZolam 1 MG TAB PO PRN (22:55)
[2017-08-29] VITALS (9 sets, daily range): BP systolic 128–146; BP diastolic 62–73; PULSE 52–65; RESP 16–18; TEMP 97.3–97.9; O2SAT 95–98
[2017-08-29] MEDS: DILTIAZEM HCL 30 MG TAB PO SCH ×2 (05:14→14:23)
[2017-08-29] MEDS: HEPARIN SODIUM - SQ 10,000 UNITS/ML VIAL SQ SCH ×2 (05:14→16:37)
[2017-08-29] MEDS: METOPROLOL TARTRATE 25 MG TAB PO SCH ×2 (05:14→14:15)
[2017-08-29] MEDS: DOCUSATE SODIUM 50 MG/SENNA 8.6 MG TAB PO SCH (09:00)
[2017-08-29] MEDS: GABAPENTIN 100 MG CAP PO SCH (09:28)
[2017-08-29] MEDS: CHOLESTYRAMINE 4 GM PACKET PO SCH (09:28)
[2017-08-29] MEDS: FLUoxetine HCL 20 MG CAP PO SCH (09:28)
[2017-08-29] MEDS: SODIUM CHLORIDE 0.9% FLUSH 10 ML FLUSH IV FLUSH SCH (09:28)
[2017-08-29] MEDS: buPROPion HCL 150 MG SUSTAINED RELEASE TAB PO SCH (09:28)
[2017-08-29] MEDS: BUDESONIDE-FORMOTEROL 80/4.5 MCG INHALER INH SCH (09:29)
[2017-08-29] MEDS: VANCOMYCIN 25 MG/ML SOLN 100 ML BOTTLE PO SCH ×2 (09:29→14:16)
[2017-08-29] MEDS: predniSONE 20 MG TAB PO SCH (09:31)
--- NOTE | 2017-08-29 10:12 | HHI.NPPN ---
Subjective History of Present Illness 66 year old female with ESRD CHF COPD Additional Remarks Patient usually dialyzes TTS. Review of Systems General Constitutional: Fatigue Respiratory Lungs: SOB Objective Data Data Vital Signs Date Time Temp Pulse Resp B/P (MAP) Pulse Ox O2 Delivery O2 Flow Rate FiO2 08/29/17 08:00 52 08/29/17 08:00 Room Air 08/29/17 08:00 97.8 59 16 146/73 (97) 98 08/29/17 04:00 Room Air 08/29/17 04:00 97.9 60 18 128/63 (84) 96 08/29/17 04:00 60 08/29/17 00:38 Room Air 08/29/17 00:38 97.5 60 18 136/62 (86) 96 08/29/17 00:00 61 08/28/17 20:32 Room Air 08/28/17 20:32 98.7 65 14 135/63 (87) 98 08/28/17 20:00 65 08/28/17 16:01 98.2 69 18 139/65 (89) 97 08/28/17 16:00 62 08/28/17 12:00 98.1 66 18 146/67 (93) 95 08/28/17 12:00 66 -: 08/26/17 0317 08/26/17 0317 Physical Exam Eyes Eye Exam: Pupils Equal Pulmonary Resp Exam: Decreased Bases Cardiology CV Exam: Regular Gastrointestinal/Abdomen GI Exam: Soft, Non-Tender, Positive Bowel Movement Extremeties Extremities Exam: No Edema Assessment/Plan Problem List: (1) ESRD (end stage renal disease) ICD Codes: N18.6 - End stage renal disease Status: Chronic Plan: Usually dialyzes TTS, on her outpatient schedule. Monitor fluid and electrolytes. CAD medical management seen during hemodialysis UF 2 L as tolerated on Diltiazem for A fib dc plans per Dr. Watkins (2) COPD with acute exacerbation ICD Codes: J44.1 - Chronic obstructive pulmonary disease with (acute) exacerbation Status: Acute Plan: Improved. (3) DM (diabetes mellitus) ICD Codes: E11.9 - Type 2 diabetes mellitus without complications Status: Chronic Plan: continue insulin coverage. (4) Hyperkalemia ICD Codes: E87.5 - Hyperkalemia Plan: give Kayexalate (5) Atrial fibrillation ICD Codes: I48.91 - Unspecified atrial fibrillation Status: Acute Plan: Received amiodarone. Rate is controlled. Oscar Jurado MD Aug 29, 2017 10:12
[2017-08-29] MEDS: EPOETIN ALFA 10,000 UNITS/ML VIAL IV PUSH PRN (13:03)
--- NOTE | 2017-08-29 13:23 | EKG ---
Date Performed: 08/26/2017 Time Performed: 05:16:50 PTAGE: 66 years EKG: Possible ectopic atrial rhythm ST junctional depression is nonspecific Borderline ECG PREVIOUS TRACING : 08/25/2017 14.21 Since the prior tracing, there has been no significant bowen DOCTOR: Adam Oliveros Interpretating Date/Time 08/29/2017 13:22:58
--- NOTE | 2017-08-29 13:50 | EKG ---
Date Performed: 08/25/2017 Time Performed: 14:21:12 PTAGE: 66 years EKG: Sinus bradycardia Normal ECG except for rate PREVIOUS TRACING : 08/21/2017 20.12 Compared to prior tracing, sinus bradycardia has rep laced atrial fibrillation. DOCTOR: Adam Oliveros Interpretating Date/Time 08/29/2017 13:48:08
[2017-08-29] MEDS: CALCIUM ACETATE 667 MG CAP PO SCH (14:16)
--- NOTE | 2017-08-29 14:33 | HHI.PR ---
Subjective Remarks ALERT NAD lying comfortably in bed on O2 Objective Vital Signs Date Time Temp Pulse Resp B/P (MAP) Pulse Ox O2 Delivery O2 Flow Rate FiO2 08/29/17 08:00 52 08/29/17 08:00 Room Air 08/29/17 08:00 97.8 59 16 146/73 (97) 98 08/29/17 04:00 Room Air 08/29/17 04:00 97.9 60 18 128/63 (84) 96 08/29/17 04:00 60 08/29/17 00:38 Room Air 08/29/17 00:38 97.5 60 18 136/62 (86) 96 08/29/17 00:00 61 08/28/17 20:32 Room Air 08/28/17 20:32 98.7 65 14 135/63 (87) 98 08/28/17 20:00 65 08/28/17 16:01 98.2 69 18 139/65 (89) 97 08/28/17 16:00 62 I/O 08/28/17 08/28/17 08/28/17 08/29/17 08/29/17 08/29/17 06:59 14:59 22:59 06:59 14:59 22:59 Intake Total 480 ml 380 ml 810 ml Output Total 600 ml 1100 ml 2000 ml Balance -120 ml 380 ml -290 ml -2000 ml Intake Oral 480 ml 380 ml 810 ml Output Urine Total 600 ml 1100 ml Hemodialysis 2000 ml # Voids 5 3 # Bowel Movements 1 1 Result Diagram: 08/26/1731608/26/17316 Objective Remarks GENERAL: SKIN: Warm and dry. HEAD: Atraumatic. Normocephalic. EYES: Pupils equal and round. No scleral icterus. No injection or drainage. ENT: No nasal bleeding or discharge. Mucous membranes pink and moist. NECK: Trachea midline. No JVD. CARDIOVASCULAR: Regular rate and rhythm. RESPIRATORY: No accessory muscle use. FEW RHONCHI AT BASIS. Breath sounds equal bilaterally. GASTROINTESTINAL: Abdomen soft, non-tender, nondistended. Hepatic and splenic margins not palpable. MUSCULOSKELETAL: Extremities without clubbing, cyanosis, or edema. No obvious deformities. NEUROLOGICAL: Awake and alert. No obvious cranial nerve deficits. Motor grossly within normal limits. Five out of 5 muscle strength in the arms and legs. Normal speech. PSYCHIATRIC: Appropriate mood and affect; insight and judgment normal. Assessment and Plan Assessment and Plan RESPIRATORY FAILURE , ON O2 COPD EXACERBATION CKD PLAN O2 NEEDED BRONCHODILATORS,steroids INCREASE ACTIVITY Marianela Bear MD Aug 29, 2017 14:33
[2017-08-29] MEDS ORDERED: CLON.1 PO (16:04)
[2017-08-29] MEDS ORDERED: LIPI10TA PO (16:04)
[2017-08-29] MEDS ORDERED: CHOL4POW4 PO (16:04)
[2017-08-29] MEDS ORDERED: DILT31TA PO (16:04)
[2017-08-29] MEDS ORDERED: PRED20 PO (16:10)
[2017-08-29] MEDS ORDERED: XANA1TAB2 PO (16:10)
[2017-08-29] MEDS ORDERED: OXYC-395 PO (16:10)
--- NOTE | 2017-08-29 16:12 | HHI.DCPOC ---
Discharge Care Plan Diagnosis: (1) Hypotension (2) DM (diabetes mellitus) (3) Atrial fibrillation (4) Normocytic anemia (5) Shortness of breath (6) COPD (chronic obstructive pulmonary disease) (7) CHF (congestive heart failure) (8) Unstable angina (9) ESRD (end stage renal disease) (10) COPD with acute exacerbation (11) Sepsis Goals to Promote Your Health * To prevent worsening of your condition and complications * To maintain your health at the optimal level Directions to Meet Your Goals Take your medications as prescribed Follow your dietary instruction Follow activity as directed Keep your appointments as scheduled Take your immunizations and boosters as scheduled If your symptoms worsen call your PCP, if no PCP go to Urgent Care Center or Emergency Room Smoking is Dangerous to Your Health. Avoid second hand smoke Call the 24-hour hour crisis hotline for domestic abuse at Alli Watkins MD Aug 29, 2017 16:12
--- NOTE | 2017-08-29 16:16 | HHI.DS ---
Discharge Summary Admission Date Aug 25, 2017 at 13:53 Discharge Date: Aug 29, 2017 Admitting Diagnosis Acute exacerbation COPD (1) Sepsis ICD Codes: A41.9 - Sepsis, unspecified organism Status: Acute (2) Aneurysm of basilar artery ICD Codes: I72.5 - Aneurysm of other precerebral arteries Status: Chronic (3) DM (diabetes mellitus) ICD Codes: E11.9 - Type 2 diabetes mellitus without complications Status: Chronic (4) Atrial fibrillation ICD Codes: I48.91 - Unspecified atrial fibrillation Status: Acute (5) Chronic kidney disease ICD Codes: N18.9 - Chronic kidney disease, unspecified Status: Chronic (6) COPD (chronic obstructive pulmonary disease) ICD Codes: J44.9 - Chronic obstructive pulmonary disease, unspecified Status: Chronic (7) CHF (congestive heart failure) ICD Codes: I50.9 - Heart failure, unspecified (8) Hyperkalemia ICD Codes: E87.5 - Hyperkalemia (9) Colitis ICD Codes: K52.9 - Noninfective gastroenteritis and colitis, unspecified CBC/BMP: 08/26/17 0317 08/26/17 0317 Significant Findings Laboratory Tests Test 08/28/17 15:00 PE at Discharge GENERAL: SKIN: Warm and dry. HEAD: Atraumatic. Normocephalic. EYES: Pupils equal and round. No scleral icterus. No injection or drainage. ENT: No nasal bleeding or discharge. Mucous membranes pink and moist. NECK: Trachea midline. No JVD. CARDIOVASCULAR: Regular rate and rhythm. RESPIRATORY: No accessory muscle use. Clear to auscultation. Breath sounds equal bilaterally. GASTROINTESTINAL: Abdomen soft, non-tender, nondistended. Hepatic and splenic margins not palpable. MUSCULOSKELETAL: Extremities without clubbing, cyanosis, or edema. No obvious deformities. NEUROLOGICAL: Awake and alert. No obvious cranial nerve deficits. Motor grossly within normal limits. Five out of 5 muscle strength in the arms and legs. Normal speech. PSYCHIATRIC: Appropriate mood and affect; insight and judgment normal. Hospital Course ASSESSMENT AND PLAN: 66 YEAR OLD CF, DISCHARGED TO [facility] AFTER RECENT ADMIT WITH SEPSIS, NEUTROPENIC HCAP, RETURNED WITH COPD EXAC... Chronic obstructive pulmonary disease exacerbation: iv steroids, off abx, pulm consult, HCAP: Off ABX, MONITOR FOR C DIF NEW AF RVR: CARDIO CONSULT, iv diltazem GTT, LHC NOTED, RECCOMENDED MEDICAL MANAGEMENT, coumadin or noac due to [id number] score=4, in order to lower her irsk of cva,; her daugter has power of auto transmission technician and refuses; neurology has cleared her for aspirin 81 mg qd, ASA per Dr Gusman CAD S/P [facility] Fluid overload. End-stage renal disease, on hemodialysis. Active smoker. Recent history of Clostridium difficile, return of diarrhea now: c dif, vanco qid po, questran bid, cancel abx as no PNA and c dif likely Neutropenia: heme/onc consult, Follow up her blood cultures. Recent sepsis and pneumonia. Type 2 diabetes. Heparin 5000 units b.i.d. for PX Midodrine 10 mg t.i.d. scheduled. Oxycodone p.r.n. GI prophylaxis with Protonix 40 IV daily. Physical therapy. Occupational therapy. DIARRHEA RESOLVED. DOING WELL AND PT ASKS TO GO BACK TO SNF Pt Condition on Discharge: Stable Discharge Disposition: Discharge to SNF Discharge Instructions DIET: Follow Instructions for: Renal Failure Diet Activities you can perform: Regular-No Restrictions Follow up Referrals: PCP Follow-up with DR MCMANUS [facility]/SNF/ New Medications: Diltiazem CD 24 HR (Diltiazem CD 24 HR) 240 Mg Caper 240 MG PO DAILY, #30 CAP 0 Refills Alprazolam (Xanax) 1 Mg Tab 1 MG PO BID PRN for ANXIETY for 60 Days, #120 TAB 5 Refills Atorvastatin (Lipitor) 10 Mg Tab 10 MG PO HS for HLD for 30 Days, #30 TAB 11 Refills Cholestyramine (Cholestyramine) 4 Gm/Pkt Powd 4 GM PO Q12HR for C DIF for 30 Days, #60 BOTTLE 5 Refills 1 packet contains 4 grams of cholestyramine. Clonidine (Catapres) 0.1 Mg Tab 0.1 MG PO UNSCH PRN for for BP > 180/100 X 2 readings for 30 Days, #90 TAB 11 Refills Diltiazem (Cardizem) 30 Mg Tab 30 MG PO Q6HR for AF for 30 Days, #120 TAB 11 Refills Levofloxacin (Levaquin) 750 Mg Tablet 750 MG PO EVERY OTHER DAY for Infection, #3 TAB Metoprolol Tartrate (Metoprolol Tartrate) 25 Mg Tab 25 MG PO Q12HR for Heart, #60 TAB 5 Refills Hold if systolic BP < 110 or Heart rate < 65 Oxycodone (Oxycodone) 10 Mg Tab 10 MG PO Q6HR PRN for PAIN SCALE 6 TO 10, #120 TAB 0 Refills Prednisone (Prednisone) 20 Mg Tab 20 MG PO BID for Cough for 30 Days, #60 TAB 11 Refills Continued Medications: Acetaminophen (Tylenol) 325 Mg Tab 650 MG PO Q4H PRN for PAIN/TEMP 100F OR ABOVE, TAB 0 Refills Albuterol 18 GM Inh (Ventolin Hfa 18 GM Inh) 90 Mcg/Act Aer 2 PUFF INH Q4HR PRN for SHORTNESS OF BREATH, #1 INHALER 0 Refills Aspirin (Aspirin) 81 Mg Chew 81 MG PO DAILY, TAB 0 Refills B-Complex W/ C & Folic Acid (Dialyvite 800) 1 Tab 1 TAB PO DAILY for Nutritional Supplement Bupropion HCl ER 24 HR (Bupropion HCl ER 24 HR) 150 Mg Tab 150 MG PO DAILY for Control Depression, TAB 0 Refills Calcium Acetate (Phosphate Bin (Calcium Acetate) 667 Mg Cap 667 MG PO TIDPC for dialysis, #90 CAP 3 Refills Cholecalciferol (Vitamin D3) 2,000 Unit Cap 2000 UNITS PO DAILY for Nutritional Supplement, #30 BOTTLE 0 Refills Dextromethorphan-Guaifenesin (Mucinex DM) 30-600 Mg Tab 2 TAB PO Q12HR PRN for CHEST CONGESTION AND/OR COUGH, TAB 0 Refills Docusate Sodium (Colace) 100 Mg Capsule 200 MG PO HS for Bowel Management, #30 CAP 0 Refills Fluoxetine (Fluoxetine) 20 Mg Tab 20 MG PO DAILY, #30 TAB 0 Refills Fluticasone-Vilanterol Inh (Breo Ellipta Inh) 100-25 Mcg/Act Inh 1 PUFF INH DAILY, #1 INHALER 0 Refills Use daily at the same time. Rinse mouth after each use. Gabapentin (Gabapentin) 100 Mg Cap 100 MG PO BID, #60 CAP 0 Refills Guaifenesin Liq (Guaifenesin Liq) 100 mg/5 ML Soln 200 MG PO Q4H PRN for COUGH, #1 BOTTLE 0 Refills Lidocaine-Prilocaine Topical (Lidopril Topical) 2.5-2.5 % Cream 1 APPLIC TOPICAL TuThSa PRN for Numbs skin, #1 TUBE 0 Refills Apply to shunt site daily every Saturday, and Saturday 1hr prior to dialysis Magnesium Hydroxide Liq (Milk of Magnesia Liq) 400 Mg/5 Ml Susp 30 ML PO HS PRN for IF NO BM X 3 DAYS, #1 BOTTLE 0 Refills Midodrine (Midodrine) 10 Mg Tab 10 MG PO TID for Control Low Blood Pressure, #90 TAB 0 Refills Nitroglycerin SL (Nitroglycerin SL) 0.4 Mg Subl 0.4 MG SL DIRECTED PRN for CHEST PAIN, #100 TAB.SL 0 Refills ONE TABLET UNDER THE TONGUE NEEDED FOR CHEST PAIN, MAY REPEAT EVERY FIVE MINUTES FOR A TOTAL OF 3 DOSES OR CALL 911 IF NO RELIEF Ondansetron (Zofran) 4 Mg Tab 4 MG PO Q6HR PRN for NAUSEA OR VOMITING, TAB 0 Refills Oxygen tank (Oxygen tank) 1 Ea Tank 2 LITER EDUARDO.CANULA HS for HYPOXEMIA PREVENTION, #2 CYLINDER Oxygen Concentrator Portable Gaseous 2 L/min via Nasal Cannula Continuous For 99 months Tiotropium Inh (Spiriva Handihaler) 18 Mcg Cap 18 MCG INH DAILY for COPD for 30 Days, CAP 0 Refills 1 capsule = 18 mcg Discontinued Medications: Albuterol 8.5 GM Inh (Proair Hfa 8.5 GM Inh) 90 Mcg/Act Aer 2 PUFF INH Q4HR PRN for SHORTNESS OF BREATH, #1 INHALER 0 Refills 108 mcg/actuation Albuterol Neb (Albuterol Neb) 2.5 Mg/3 Ml Neb 2.5 MG NEB Q6HR PRN for SHORTNESS OF BREATH, #1 NEBULE 0 Refills Ipratropium Neb (Ipratropium Neb) 0.5 Mg/2.5 Ml Amp 0.5 MG NEB Q6HR for Breathing Treatment, #1 NEBULE 0 Refills Alli Mcmanus MD Aug 29, 2017 16:16
[2017-08-29] MEDS: PANTOPRAZOLE SODIUM 40 MG VIAL IV PUSH SCH (16:38)
== END 2017-08-29 18:15 | DRG 286 ==
LOC: NEPC 10:41 → INTOOBSV 15:20 → NEDA 15:20 → N04A 18:02 → HCIS 08-25 13:44 → OBSVTOIN 08-25 13:53 → N04B 08-26 21:15
PROVIDERS: ADMIT Family Medicine; ATTEND Family Medicine
PROC: 5A1D70Z Performance of Urinary Filtration, Intermittent, Less than 6 Hours Per Day (ICD-10-PCS; 2017-08-21)
PROC: 4A023N7 Measurement of Cardiac Sampling and Pressure, Left Heart, Percutaneous Approach (ICD-10-PCS; principal; 2017-08-25)
PROC: B2111ZZ Fluoroscopy of Multiple Coronary Arteries using Low Osmolar Contrast (ICD-10-PCS; 2017-08-25)
PROC: B2151ZZ Fluoroscopy of Left Heart using Low Osmolar Contrast (ICD-10-PCS; 2017-08-25)
PROC: B240ZZ3 Ultrasonography of Single Coronary Artery, Intravascular (ICD-10-PCS; 2017-08-25)
PROC: 0T9B70Z Drainage of Bladder with Drainage Device, Via Natural or Artificial Opening (ICD-10-PCS; 2017-08-25)
DX: I25.110 Atherosclerotic heart disease of native coronary artery with unstable angina pectoris (principal); N18.6 End stage renal disease; J96.90 Respiratory failure, unspecified, unspecified whether with hypoxia or hypercapnia; I13.2 Hypertensive heart and chronic kidney disease with heart failure and with stage 5 chronic kidney disease, or end stage renal disease; I95.9 Hypotension, unspecified; E11.22 Type 2 diabetes mellitus with diabetic chronic kidney disease; D70.9 Neutropenia, unspecified; E11.51 Type 2 diabetes mellitus with diabetic peripheral angiopathy without gangrene; K75.9 Inflammatory liver disease, unspecified; E87.5 Hyperkalemia; J44.1 Chronic obstructive pulmonary disease with (acute) exacerbation; I48.91 Unspecified atrial fibrillation; M19.90 Unspecified osteoarthritis, unspecified site; F41.9 Anxiety disorder, unspecified; K21.9 Gastro-esophageal reflux disease without esophagitis; F17.210 Nicotine dependence, cigarettes, uncomplicated; J98.4 Other disorders of lung; K52.9 Noninfective gastroenteritis and colitis, unspecified; I72.5 Aneurysm of other precerebral arteries; F32.9 Major depressive disorder, single episode, unspecified; I50.9 Heart failure, unspecified; D63.1 Anemia in chronic kidney disease; K59.00 Constipation, unspecified; Z90.2 Acquired absence of lung [part of]; Z99.2 Dependence on renal dialysis; I25.2 Old myocardial infarction; Z85.118 Personal history of other malignant neoplasm of bronchus and lung; Z86.79 Personal history of other diseases of the circulatory system
CPT/HCPCS: 70450; 70496; 70498; 71045; 80048; 80053; 80061; 80076; 82550; 82810; 83880; 84443; 84484; 85002; 85025; 85610; 85730; 87040; 87493; 87804; 90935; 92978; 93005; 93306; 93458; 94640; 94664; 96365; 96372; 96374; 96375; 99152; 99153; C1753; C1769; C1887; C1893; C9113; G0257; G0378; J0696; J1644; J2250; J2405; J2930; J7050; J7512; Q4081; Q9967

== ENCOUNTER 2017-09-11 14:56 | Inpatient (IN) | payer MEDICARE, OTHER ==
[~2017-09-11] VITALS: Ht 152.4 cm; Wt 62.0 kg
[~2017-09-11 14:56] MED LIST changes: -ALBUAER3 INH; -CEFU1TAB18 PO; +CLON.1 PO; +COLA100C5 PO; +DILT31TA PO; -DOCU100C15 PO; -FAMO20TA2 PO; +FLUT1INH INH; +GUAI100S7 PO; +LEVA750T9 PO; +LIPI10TA PO; +METO25TA3 PO; -METR1TAB76 PO; +MILKSUS PO; +PRED20 PO; -SYMB160A INH; -TUMS500C CHEW; +TYLE325T PO
[2017-09-11 15:04] VITALS: BP 136/70; PULSE 65; RESP 16; TEMP 98.3; O2SAT 100
--- NOTE | 2017-09-11 15:57 | PD ---
HPI Chief Complaint: General Weakness Time Seen by Provider: 15:20 Travel History International Travel<30 days: No Contact w/Intl Traveler<30days: No Traveled to known affect area: No History of Present Illness HPI 66-year-old female that presents to the ED for evaluation of LS weakness and shortness of breath. Per patient she's been feeling weak in her legs and is having shortness of breath. She has a history of COPD, ESRD, smoker, and multiple recent admissions. Per patient she's been going in and out of the hospital and SNF. Per patient she lives a car: Shows at this time. She follows with Dr. Watkins for primary care. Per patient she has not seen Dr. Watkins since been discharged. She is having some diarrhea for the past 7 days. Per the medical record she was admitted here for almost 2 weeks and was diagnosed with COPD exacerbation and was found to have A. fib as well as other conditions. She was started on new medications and at times she was on antibiotics. At the time she did not having diarrhea or any other symptoms. She states that she is having difficulty ambulating secondary to the weakness to the legs. She denies any falls or injuries. She does not know what medication she is taking is most the medications are given by the SNF. Denies any pain at this time. No urinary issues otherwise. PFSH Past Medical History Hx Anticoagulant Therapy: Yes Arthritis: Yes Asthma: No Anxiety: Yes Depression: Yes Heart Rhythm Problems: No Cancer: Yes (lung s/p lobectomy and XRT ) Cardiac Catheterization: Yes Cardiovascular Problems: Yes (CAD) Chemotherapy: No Chest Pain: Yes Congestive Heart Failure: Yes COPD: Yes Cerebrovascular Accident: No Coronary Artery Disease: Yes Diabetes: Yes Patient Takes Glucophage: No Diminished Hearing: No Endocrine: Yes Gastrointestinal Disorders: Yes (CONSTIPATION, colitis ) GERD: Yes Genitourinary: Yes Hepatitis: Yes (PREVIOUS FOOD BORNE HEPATITIS INFECTION PER CAREGIVER) Hiatal Hernia: Yes Hypertension: Yes (NOW HYPOTENSION) Immune Disorder: No Implanted Vascular Access Dvce: Yes (LUE) Kidney Stones: No Musculoskeletal: Yes (OA) Neurologic: Yes (ANEURYSM) Psychiatric: Yes Reproductive: No Respiratory: Yes (END STAGE EMPHYSEMA) Immunizations Current: Yes Migraines: No Myocardial Infarction: Yes (AGE 50) Pneumonia: Yes Radiation Therapy: Yes (2014) Renal Failure: Yes (, , SAT dialysis) Seizures: No Sleep Apnea: No Thyroid Disease: No Ulcer: No Tetanus Vaccination: < 5 Years Influenza Vaccination: Yes : 3 Para: 3 Miscarriage: 0 : 0 Tubal Ligation: Yes Past Surgical History Abdominal Surgery: Yes (cholecystectomy) AICD: No Arteriovenous Shunt: Yes Body Medical Devices: brain stent capped Cardiac Surgery: Yes (cardiac cath) Cholecystectomy: Yes Ear Surgery: No Endocrine Surgery: No Eye Surgery: No Gynecologic Surgery: Yes Insulin Pump: No Joint Replacement: Yes (R FEMUR REPAIR) Neurologic Surgery: Yes (brain anuerysm with stent (capped)) Oral Surgery: No Pacemaker: No Thoracic Surgery: Yes (WEDGE RESECTION FOR SQUAMOUS CELL CARCINOMA) Other Surgery: Yes (lobectomy, brain aneuysm clipp, tube ligation, right femur ro) Social History Alcohol Use: No Tobacco Use: Yes (1 PPD) Substance Use: No Allergies-Medications (Allergen,Severity, Reaction): Coded Allergies: morphine (Verified Allergy, Severe, RASH, 08/20/17) ciprofloxacin (Verified Adverse Reaction, Intermediate, NAUSEAS, 08/20/17) codeine (Verified Adverse Reaction, Intermediate, Vertigo, 08/20/17) Reported Meds & Prescriptions Reported Meds & Active Scripts Active Oxycodone (Oxycodone HCl) 10 Mg Tab 10 Mg PO Q6HR PRN Xanax (Alprazolam) 1 Mg Tab 1 Mg PO BID PRN 60 Days Prednisone 20 Mg Tab 20 Mg PO BID 30 Days Cardizem (Diltiazem HCl) 30 Mg Tab 30 Mg PO Q6HR 30 Days Catapres (Clonidine) 0.1 Mg Tab 0.1 Mg PO UNSCH PRN 30 Days Lipitor (Atorvastatin Calcium) 10 Mg Tab 10 Mg PO HS 30 Days Metoprolol Tartrate 25 Mg Tab 25 Mg PO Q12HR Hold if systolic BP < 110 or Heart rate < 65 Levaquin (Levofloxacin) 750 Mg Tablet 750 Mg PO EVERY OTHER DAY Vitamin D3 (Cholecalciferol) 2,000 Unit Cap 2,000 Units PO DAILY Fluoxetine (Fluoxetine HCl) 20 Mg Tab 20 Mg PO DAILY Midodrine 10 Mg Tab 10 Mg PO TID Calcium Acetate (Calcium Acetate (Phosphate Bin) 667 Mg Cap 667 Mg PO TIDPC Spiriva Handihaler (Tiotropium Inh) 18 Mcg Cap 18 Mcg INH DAILY 30 Days 1 capsule = 18 mcg Reported Colace (Docusate Sodium) 100 Mg Capsule 200 Mg PO HS Guaifenesin Liq (Guaifenesin) 100 mg/5 ML Soln 200 Mg PO Q4H PRN Breo Ellipta Inh (Fluticasone/Vilanterol) 100-25 Mcg/Act Inh 1 Puff INH DAILY Use daily at the same time. Rinse mouth after each use. Tylenol (Acetaminophen) 325 Mg Tab 650 Mg PO Q4H PRN Milk of Magnesia Liq (Magnesium Hydroxide) 400 Mg/5 Ml Susp 30 Ml PO HS PRN Nitroglycerin SL (Nitroglycerin) 0.4 Mg Subl 0.4 Mg SL DIRECTED PRN ONE TABLET UNDER THE TONGUE NEEDED FOR CHEST PAIN, MAY REPEAT EVERY FIVE MINUTES FOR A TOTAL OF 3 DOSES OR CALL 911 IF NO RELIEF Gabapentin 100 Mg Cap 100 Mg PO BID Bupropion HCl ER 24 HR (Bupropion HCl) 150 Mg Tab 150 Mg PO DAILY Lidopril Topical (Lidocaine-Prilocaine Topical) 2.5-2.5 % Cream 1 Applic TOPICAL TUTHSA PRN Apply to shunt site daily every Saturday, and Saturday 1hr prior to dialysis Zofran (Ondansetron HCl) 4 Mg Tab 4 Mg PO Q6HR PRN Dialyvite 800 (B-Complex W/ C & Folic Acid) 1 Tab 1 Tab PO DAILY Ventolin Hfa 18 GM Inh (Albuterol Sulfate) 90 Mcg/Act Aer 2 Puff INH Q4HR PRN Mucinex DM (Dextromethorphan-Guaifenesin) 30-600 Mg Tab 2 Tab PO Q12HR PRN Aspirin 81 Mg Chew 81 Mg PO DAILY Oxygen tank (Oxygen) 1 Ea Tank 2 Liter EDUARDO.CANULA HS Oxygen Concentrator Portable Gaseous 2 L/min via Nasal Cannula Continuous For 99 months Review of Systems Except as stated in HPI: all other systems reviewed are Neg Physical Exam Narrative GENERAL: SKIN: Warm and dry. HEAD: Atraumatic. Normocephalic. EYES: Pupils equal and round. No scleral icterus. No injection or drainage. ENT: No nasal bleeding or discharge. Mucous membranes pink and moist. Tongue is midline. No uvula deviation. NECK: Trachea midline. No JVD. CARDIOVASCULAR: Regular rate and rhythm. No murmurs, S3, S4. RESPIRATORY: No accessory muscle use. Wheezings heard in all lower lung pat and upper lung pat. Breath sounds equal bilaterally. GASTROINTESTINAL: Abdomen soft, non-tender, nondistended. Hepatic and splenic margins not palpable. MUSCULOSKELETAL: Extremities without clubbing, cyanosis, or edema. No obvious deformities. Full range of motion of the upper and lower extremities bilaterally. 2+ pulses bilaterally. NEUROLOGICAL: Awake and alert. No obvious cranial nerve deficits. Motor grossly within normal limits. Five out of 5 muscle strength in the arms and legs. Normal speech. PSYCHIATRIC: Appropriate mood and affect; insight and judgment normal. Data Data Last Documented VS Vital Signs Date Time Temp Pulse Resp B/P (MAP) Pulse Ox O2 Delivery O2 Flow Rate FiO2 09/11/17 17:51 20 100 Nasal Cannula 2.00 09/11/17 15:04 98.3 65 136/70 (92) Orders Orders Complete Blood Count With Diff (09/11/17 15:19) Blood Glucose (09/11/17 15:19) Comprehensive Metabolic Panel (09/11/17 15:19) Iv Access Insert/Monitor (09/11/17 15:19) Electrocardiogram (09/11/17 ) B-Type Natriuretic Peptide (09/11/17 15:47) Prothrombin Time / Inr (Pt) (09/11/17 15:47) Act Partial Throm Time (Ptt) (09/11/17 15:47) Lipase (09/11/17 15:47) Urinalysis - C+S If Indicated (09/11/17 15:47) Magnesium (Mg) (09/11/17 15:47) Thyroid Stimulating Hormone (09/11/17 15:47) Chest, Single Ap (09/11/17 15:47) Ecg Monitoring (09/11/17 15:47) Oximetry (09/11/17 15:47) Methylprednisolone So Succ Inj (Solumedr (09/11/17 16:00) Albuterol-Ipratropium Neb (Duoneb Neb) (09/11/17 16:00) Lactic Acid Sepsis Protocol (09/11/17 15:57) C Diff Toxin Pcr (09/11/17 16:32) Azithromycin Inj (Zithromax Inj) (09/11/17 17:30) Ceftriaxone Inj (Rocephin Inj) (09/11/17 17:30) Albuterol-Ipratropium Neb (Duoneb Neb) (09/11/17 17:30) Admit Order (Ed Use Only) (09/11/17 18:11) Labs Laboratory Tests Test 09/11/17 16:25 White Blood Count 18.9 TH/MM3 Red Blood Count 3.39 MIL/MM3 Hemoglobin 10.3 GM/DL Hematocrit 31.6 % Mean Corpuscular Volume 93.3 FL Mean Corpuscular Hemoglobin 30.4 PG Mean Corpuscular Hemoglobin Concent 32.5 % Red Cell Distribution Width 18.1 % Platelet Count 125 TH/MM3 Mean Platelet Volume 8.3 FL Neutrophils (%) (Auto) 92.6 % Lymphocytes (%) (Auto) 1.1 % Monocytes (%) (Auto) 5.7 % Eosinophils (%) (Auto) 0.5 % Basophils (%) (Auto) 0.1 % Neutrophils # (Auto) 17.5 TH/MM3 Lymphocytes # (Auto) 0.2 TH/MM3 Monocytes # (Auto) 1.1 TH/MM3 Eosinophils # (Auto) 0.1 TH/MM3 Basophils # (Auto) 0.0 TH/MM3 CBC Comment DIFF FINAL Differential Comment Prothrombin Time 11.2 SEC Prothromb Time International Ratio 1.1 RATIO Activated Partial Thromboplast Time 25.5 SEC Blood Urea Nitrogen 57 MG/DL Creatinine 4.61 MG/DL Random Glucose 304 MG/DL Total Protein 6.2 GM/DL Albumin 3.0 GM/DL Calcium Level 8.7 MG/DL Alkaline Phosphatase 143 U/L Aspartate Amino Transf (AST/SGOT) 5 U/L Alanine Aminotransferase (ALT/SGPT) 20 U/L Total Bilirubin 0.7 MG/DL Sodium Level 134 MEQ/L Potassium Level 4.4 MEQ/L Chloride Level 99 MEQ/L Carbon Dioxide Level 24.7 MEQ/L Anion Gap 10 MEQ/L Estimat Glomerular Filtration Rate 9 ML/MIN Lactic Acid Level 1.4 mmol/L Magnesium Level 2.1 MG/DL B-Type Natriuretic Peptide 380 PG/ML Lipase 206 U/L Thyroid Stimulating Hormone 3rd Gen 1.210 uIU/ML MDM Medical Decision Making Medical Screen Exam Complete: Yes Emergency Medical Condition: Yes Medical Record Reviewed: Yes Interpretation(s) CBC & BMP Diagram 09/11/17 16:25 Total Protein 6.2 L, Albumin 3.0 L, Calcium Level 8.7, Alkaline Phosphatase 143 H, Aspartate Amino Transf (AST/SGOT) 5 L, Alanine Aminotransferase (ALT/SGPT) 20 , Total Bilirubin 0.7 Last Impressions Chest X-Ray 09/11/17 1547 Signed Impressions: Service Date/Time: Monday, September 11, 2017 16:08 - CONCLUSION: 1. There is an area of consolidation in the left lung. This has been present on several prior exams and is relatively stable. This probably represents an area of scarring and fibrosis. Shaheed Sheets MD troponin and CKMB negative Differential Diagnosis CHF exacerbation versus pneumonia versus COPD exacerbation versus weakness versus sepsis versus chronic kidney disease versus electrolyte abnormality Narrative Course 66-year-old female that presents to the ED for evaluation of shortness of breath as well as weakness. Patient was properly examined and was found to have signs and symptoms of unclear etiology at this time. She does appear to be very weak in the legs. She appears to be the condition. She says COPD continues to smoke. She does have a lot of wheezing on exam and appears to be somewhat tachypneic. Labs and imaging ordered. Patient was given breathing treatments. Labs and imaging were done and show what appears to be COPD exacerbation. Patient does have significant leukocytosis compared to previous. I discussed the case with my attending who agrees with admission. Patient was admitted to Dr. Watkins who agrees to admission. Diagnosis Primary Impression: COPD (chronic obstructive pulmonary disease) Qualified Codes: J44.1 - Chronic obstructive pulmonary disease with (acute) exacerbation Additional Impressions: Leukocytosis Qualified Codes: D72.825 - Bandemia Weakness of both legs Admitting Information Admitting Physician Requests: Observation Oh Sood Sep 11, 2017 15:57
[2017-09-11] MEDS ORDERED: methylPREDNISolone SOD SUCC 125 MG/2 ML VIAL IV PUSH ONE (16:00)
--- NOTE | 2017-09-11 16:29 | RADRPT ---
EXAM DATE/TIME: 09/11/2017 16:08 [facility] COMPARISON: CHEST SINGLE AP, September 24, 2016, 11:29. CT THORAX W/O CONTRAST, August 07, 2017, 19:00. CHEST PA & LAT, August 01, 2017, 18:47. CHEST SINGLE AP, August 28, 2017, 16:53. INDICATIONS : Short of breath. MEDICAL HISTORY : Myocardial infarction. Chronic obstructive pulmonary disease. Emphysema. renal failure, diabetes, hypotension, cprpnary artery disease SURGICAL HISTORY : cardiac cath, lobectomy. ENCOUNTER: Initial ACUITY: 1 day PAIN SCORE: Non-responsive. LOCATION: Bilateral chest FINDINGS: The heart is normal in size. The left lung demonstrates an area of parenchymal consolidation. This linton s been present since previous dated 09/24/16. There is some mild elevation of the left hemidiaphragm. The right lung is clear. The heart is normal in size. The mediastinal contours are within normal limits. The bony structures are grossly intact. CONCLUSION: 1. There is an area of consolidation in the left lung. This has been present on several prior exams a nd is relatively stable. This probably represents an area of scarring and fibrosis. Shaheed Sheets MD on September 11, 2017 at 16:23 Board Certified Radiologist. This report was verified electronically.
[2017-09-11] MEDS: RESP: ALBUTEROL 2.5 MG/IPRATROPIUM 0.5 MG NEB (SCH) INH ×3 (16:34→17:34)
[2017-09-11 16:48] LABS: AUTOMATED NEUTROPHIL # 17.5 TH/MM3 (1.8-7.7); BASOPHIL % 0.1 % (0.0-2.0); EOSINOPHIL # 0.1 TH/MM3 (0-0.4); EOSINOPHIL % 0.5 % (0.0-4.0); HEMATOCRIT 31.6 % (35.0-46.0); HEMOGLOBIN 10.3 GM/DL (11.6-15.3); LYMPH % 1.1 % (9.0-44.0); LYMPHOCYTE # 0.2 TH/MM3 (1.0-4.8); MEAN CELL VOLUME 93.3 FL (80.0-100.0); MEAN CORPUSCULAR HEMOGLOBIN 30.4 PG (27.0-34.0); MEAN CORPUSCULAR HGB CONC 32.5 % (32.0-36.0); MEAN PLATELET VOLUME 8.3 FL (7.0-11.0); MONO % 5.7 % (0.0-8.0); MONOCYTE # 1.1 TH/MM3 (0-0.9); NEUT % 92.6 % (16.0-70.0); PLATELET COUNT 125 TH/MM3 (150-450); RED BLOOD COUNT 3.39 MIL/MM3 (4.00-5.30); RED CELL DISTRIBUTION WIDTH 18.1 % (11.6-17.2); WHITE BLOOD COUNT 18.9 TH/MM3 (4.0-11.0)
[2017-09-11 16:51] LABS: INTERNATIONAL NORMALIZED RATIO 1.1 RATIO; PROTHROMBIN TIME - PATIENT 11.2 SEC (9.8-11.6)
[2017-09-11 16:59] LABS: AST (GOT) 5 U/L (15-37); BICARBONATE 24.7 MEQ/L (21.0-32.0); BLOOD UREA NITROGEN 57 MG/DL (7-18); CALCIUM 8.7 MG/DL (8.5-10.1); CHLORIDE 99 MEQ/L (98-107); CREATININE 4.61 MG/DL (0.50-1.00); GLOMERULAR FILTRATION RATE 9 ML/MIN (>89); GLUCOSE,RANDOM 304 MG/DL (74-106); SODIUM (NA) 134 MEQ/L (136-145)
[2017-09-11 17:00] LABS: MAGNESIUM 2.1 MG/DL (1.5-2.5)
[2017-09-11 17:03] LABS: ALKALINE PHOSPHATASE 143 U/L (45-117); ALT (GPT) 20 U/L (10-53); TOTAL BILIRUBIN ADULT 0.7 MG/DL (0.2-1.0); TOTAL PROTEIN 6.2 GM/DL (6.4-8.2)
[2017-09-11] MEDS ORDERED: cefTRIAXone INJ 1,000 MG in SODIUM CHLORIDE 0.9% INJ 100 ML IV ONE (17:30)
[2017-09-11] MEDS ORDERED: AZITHROMYCIN INJ 500 MG in SODIUM CHLOR 0.9% 250 ML INJ 250 ML IV ONE (17:30)
[2017-09-11 17:51] VITALS: RESP 20; O2SAT 100
[2017-09-11 19:00] VITALS: BP 143/66; PULSE 74; RESP 18; O2SAT 100
[2017-09-11] MEDS ORDERED: VENTAER INH (19:07)
[2017-09-11] MEDS ORDERED: MELA3TAB23 (19:07)
--- NOTE | 2017-09-11 19:23 | EKG ---
Date Performed: 09/11/2017 Time Performed: 15:39:10 PTAGE: 66 years EKG: Sinus rhythm POSSIBLE LEFT ATRIAL ENLARGEMENT BORDERLINE ECG Compared to prior electrocardiogram, Normal sinus rh ythm has replaced Ectopic atrial rhythm DOCTOR: Stevenson Alfonso Interpretating Date/Time 09/11/2017 19:21:33
[2017-09-11] MEDS ORDERED: ACETAMINOPHEN 325 MG TAB PO PRN (21:00)
[2017-09-11] MEDS ORDERED: LIDOCAINE-PRILOCAIN 2.5% CREAM 5 GM TUBE TOPICAL PRN (21:00)
[2017-09-11] MEDS ORDERED: DEXTROMETHORPHAN GUAIFENESIN PO PRN (21:00)
[2017-09-11] MEDS ORDERED: MAGNESIUM HYDROXIDE SUSP 30 ML CUP PO PRN (21:00)
[2017-09-11] MEDS ORDERED: predniSONE 20 MG TAB PO SCH (21:00)
[2017-09-11] MEDS ORDERED: DOCUSATE SODIUM 100 MG CAP PO SCH (21:00)
[2017-09-11] MEDS ORDERED: LORazepam 0.5 MG TAB PO PRN (21:00)
[2017-09-11] MEDS ORDERED: cloNIDine HCL 0.1 MG TAB PO PRN (21:00)
[2017-09-11 21:15] VITALS: BP 121/58; PULSE 76; RESP 17; TEMP 98.2; O2SAT 100
[2017-09-11] MEDS ORDERED: PT:MUCINEX DM PO PRN (21:45)
[2017-09-11] MEDS: METOPROLOL TARTRATE 25 MG TAB PO SCH (22:30)
[2017-09-11] MEDS: PANTOPRAZOLE SODIUM 40 MG VIAL IV PUSH SCH (22:31)
[2017-09-11] MEDS ORDERED: DEXTROSE 50% IN WATER 50 ML VIAL(D50) IV PUSH PRN (23:30)
[2017-09-11] MEDS ORDERED: GLUCAGON 1 MG/ML VIAL OTHER PRN (23:30)
[2017-09-12] VITALS (9 sets, daily range): BP systolic 119–136; BP diastolic 57–69; PULSE 66–77; RESP 16–20; TEMP 97.6–98.4; O2SAT 95–98
[2017-09-12] MEDS: methylPREDNISolone SOD SUCC 125 MG/2 ML VIAL IV SCH ×4 (00:13→18:35)
[2017-09-12] MEDS: MEDIUM DOSE INSULIN NOVOLOG SUPPLEMENTAL SCALE SQ SCH ×5 (00:13→19:09)
[2017-09-12] MEDS: DILTIAZEM HCL 30 MG TAB PO SCH ×4 (00:13→18:35)
--- NOTE | 2017-09-12 07:35 | HHI.HP ---
History of Present Illness Primary Care Physician Alli Watkins MD Admission Diagnosis COPD exacerbation, leukocytosis, diarrhea Diagnoses: (1) Acute kidney injury superimposed on chronic kidney disease (2) Intertrochanteric fracture of right hip (3) Aneurysm of basilar artery (4) Psychological factors affecting medical condition (5) DM (diabetes mellitus) (6) Debility (7) ESRD (end stage renal disease) (8) CHF (congestive heart failure) (9) Pneumonia, bacterial (10) Atrial fibrillation (11) COPD (chronic obstructive pulmonary disease) (12) Leukocytosis (13) Impaired mobility and activities of daily living (14) Shortness of breath (15) Colitis History of Present Illness 66 Y CF. RECENT ADMIT WITH HIP FX, PNA, NEUTROPENIA, AF. DISCHARGED TO [facility]. PT CONTINUED TO SMOKE HEAVILY THERE. SHE DEVELOPED WORSENING RONCHI AND SPUTUM OVER THE LAST TWO DAYS. IT APPEARED SHE WAS IN DISTRESS AND SHE WAS THUS TRANSFERRED TO [facility]. PT FOUND WITH SEVERE CONGESTION, AND PNA. PT GIVEN IV ABX AND SEPSIS WORKUP BEGUN. LARGE DIARRHEAL STOOL IN ER. SENT FOR C DIF. I WAS THEN CALLED FOR ADMISSION. Review of Systems ROS Limitations: Clinical Condition, Altered Mental Status, Hearing Impaired, Speech Impaired, Poor Historian Except as stated in HPI: all other systems reviewed are Neg Past Family Social History Allergies: Coded Allergies: morphine (Verified Allergy, Severe, RASH, 08/20/17) ciprofloxacin (Verified Adverse Reaction, Intermediate, NAUSEAS, 08/20/17) codeine (Verified Adverse Reaction, Intermediate, Vertigo, 08/20/17) Past Medical History CHF ESRD AF Past Surgical History AV SHUNT HIP FX SX Active Ordered Medications Current Medications Medications (Trade) Dose Ordered Sig/Carlos Route Start Time Stop Time Status Last Admin (Tylenol) 650 mg Q4H PRN PO 09/11/17 21:00 09/12/17 03:48 (Aspirin Chew) 81 mg DAILY PO 09/12/17 09:00 (Phoslo) 667 mg TIDPC PO 09/12/17 09:30 (Catapres) 0.1 mg UNSCH PRN PO 09/11/17 21:00 (Cardizem) 30 mg Q6HR PO 09/12/17 00:00 09/12/17 06:08 (Colace) 200 mg HS PO 09/11/17 21:00 (PROzac) 20 mg DAILY PO 09/12/17 09:00 (Emla Cream) 1 applic TuThSa PRN TOPICAL 09/11/17 21:00 (Milk Of Magnesia Liq) 30 ml HS PRN PO 09/11/17 21:00 (Lopressor) 25 mg Q12HR PO 09/11/17 21:00 09/11/17 22:30 (Proamatine) 10 mg TID PO 09/12/17 09:00 (Roxicodone) 10 mg Q6HR PRN PO 09/11/17 21:00 (Duoneb Neb) 1 ampule QID NEB NEB 09/12/17 08:00 (Ativan) 0.5 mg Q8H PRN PO 09/11/17 21:00 (SoluMEDROL INJ) 80 mg Q6HR IV 09/12/17 00:00 09/12/17 06:09 (Protonix Inj) 40 mg Q24H IV PUSH 09/11/17 21:00 09/11/17 22:31 Azithromycin 500 mg/Sodium Chloride 250 ml @ 250 mls/hr Q24H IV 09/12/17 20:00 (Vancomycin 25 Mg/ml Liq) 250 mg QID PO 09/12/17 09:00 (Wellbutrin Sr) 150 mg DAILY PO 09/12/17 09:00 Patient Own Medication PT OWN MED: MUCI... Q12H PRN PO 09/11/17 21:45 Future Hold (D50w (Vial) Inj) 50 ml UNSCH PRN IV PUSH 09/11/17 23:30 (Glucagon Inj) 1 mg UNSCH PRN OTHER 09/11/17 23:30 (NovoLOG SUPPLEMENTAL SCALE) 1 ACHS SLIDING SCALE SQ 09/11/17 23:25 09/12/17 00:13 Family History DGTR W BIPOLAR, M/F UNKNOWN Social History SMOKING HEAVILY AT [facility], NO E/D Physical Exam Vital Signs Vital Signs Date Time Temp Pulse Resp B/P (MAP) Pulse Ox O2 Delivery O2 Flow Rate FiO2 09/12/17 06:07 66 130/61 (84) 09/12/17 04:55 20 09/12/17 03:43 98.0 66 17 126/57 (80) 96 09/12/17 00:04 98.3 71 16 136/61 (86) 97 09/11/17 21:15 98.2 76 17 121/58 (79) 100 09/11/17 19:27 09/11/17 19:00 74 18 143/66 (91) 100 Nasal Cannula 2.00 09/11/17 17:51 20 100 Nasal Cannula 2.00 09/11/17 15:04 98.3 65 16 136/70 (92) 100 Physical Exam GENERAL: This is FRAIL ELDER F, COUGHING SKIN: No rashes, ecchymoses or lesions. Cool and dry. large bruise on back sec to immobilization HEAD: Atraumatic. Normocephalic. No temporal or scalp tenderness. EYES: Pupils equal round and reactive. Extraocular motions intact. No scleral icterus. No injection or drainage. ENT: Nose without bleeding, purulent drainage or septal hematoma. Throat without erythema, tonsillar hypertrophy or exudate. Uvula midline. Airway patent. NECK: Trachea midline. No JVD or lymphadenopathy. Supple, nontender, no meningeal signs. CARDIOVASCULAR: Regular rate and rhythm without murmurs, gallops, or rubs. RESPIRATORY:RONCHI IN ALL LEE, L BASE CRACKLES, GASTROINTESTINAL: Abdomen soft, non-tender, nondistended. No hepato-splenomegaly , or palpable masses. No guarding. MUSCULOSKELETAL: Extremities without clubbing, cyanosis, or edema. No joint tenderness, effusion, or edema noted. No calf tenderness. Negative Homans sign bilaterally. NEUROLOGICAL: Awake and alert. Cranial nerves II through XII intact. Motor and sensory grossly within normal limits. 2 out of 5 muscle strength in all muscle groups. Normal speech. Laboratory Laboratory Tests Test 09/11/17 16:25 White Blood Count 18.9 Red Blood Count 3.39 Hemoglobin 10.3 Hematocrit 31.6 Mean Corpuscular Volume 93.3 Mean Corpuscular Hemoglobin 30.4 Mean Corpuscular Hemoglobin Concent 32.5 Red Cell Distribution Width 18.1 Platelet Count 125 Mean Platelet Volume 8.3 Neutrophils (%) (Auto) 92.6 Lymphocytes (%) (Auto) 1.1 Monocytes (%) (Auto) 5.7 Eosinophils (%) (Auto) 0.5 Basophils (%) (Auto) 0.1 Neutrophils # (Auto) 17.5 Lymphocytes # (Auto) 0.2 Monocytes # (Auto) 1.1 Eosinophils # (Auto) 0.1 Basophils # (Auto) 0.0 CBC Comment DIFF FINAL Differential Comment Prothrombin Time 11.2 Prothromb Time International Ratio 1.1 Activated Partial Thromboplast Time 25.5 Blood Urea Nitrogen 57 Creatinine 4.61 Random Glucose 304 Total Protein 6.2 Albumin 3.0 Calcium Level 8.7 Alkaline Phosphatase 143 Aspartate Amino Transf (AST/SGOT) 5 Alanine Aminotransferase (ALT/SGPT) 20 Total Bilirubin 0.7 Sodium Level 134 Potassium Level 4.4 Chloride Level 99 Carbon Dioxide Level 24.7 Anion Gap 10 Estimat Glomerular Filtration Rate 9 Lactic Acid Level 1.4 Magnesium Level 2.1 B-Type Natriuretic Peptide 380 Lipase 206 Thyroid Stimulating Hormone 3rd Gen 1.210 Result Diagram: 09/11/17 1625 09/11/17 1625 Caprini VTE Risk Assessment Caprini VTE Risk Assessment: Mod/High Risk (score >= 2) Caprini Risk Assessment Model Point Value = 1 Point Value = 2 Point Value = 3 Point Value = 5 Age 41-60 Minor surgery BMI > 25 kg/m2 Swollen legs Varicose veins or History of unexplained or recurrent spontaneous Oral contraceptives or hormone replacement Sepsis (< 1 month) Serious lung disease, including pneumonia (< 1 month) Abnormal pulmonary function Acute myocardial infarction Congestive heart failure (< 1 month) History of inflammatory bowel disease Medical patient at bed rest Age 61-74 Arthroscopic surgery Major open surgery (> 45 min) Laparoscopic surgery (> 45 min) Malignancy Confined to bed (> 72 hours) Immobilizing plaster cast Central venous access Age >= 75 History of VTE Family history of VTE Factor V Leiden Prothrombin [id number] Lupus anticoagulant Anticardiolipin antibodies Elevated serum homocysteine Heparin-induced thrombocytopenia Other congenital or acquired thrombophilia Stroke (< 1 month) Elective arthroplasty Hip, pelvis, or leg fracture Acute spinal cord injury (< 1 month) Prophylaxis Regimen Total Risk Factor Score Risk Level Prophylaxis Regimen 0-1 Low Early ambulation 2 Moderate Order ONE of the following: *Sequential Compression Device (SCD) *Heparin 5000 units SQ BID 3-4 Higher Order ONE of the following medications: *Heparin 5000 units SQ TID *Enoxaparin/Lovenox 40 mg SQ daily (WT < 150 kg, CrCl > 30 mL/min) *Enoxaparin/Lovenox 30 mg SQ daily (WT < 150 kg, CrCl > 10-29 mL/min) *Enoxaparin/Lovenox 30 mg SQ BID (WT < 150 kg, CrCl > 30 mL/min) AND/OR *Sequential Compression Device (SCD) 5 or more Highest Order ONE of the following medications: *Heparin 5000 units SQ TID (Preferred with Epidurals) *Enoxaparin/Lovenox 40 mg SQ daily (WT < 150 kg, CrCl > 30 mL/min) *Enoxaparin/Lovenox 30 mg SQ daily (WT < 150 kg, CrCl > 10-29 mL/min) *Enoxaparin/Lovenox 30 mg SQ BID (WT < 150 kg, CrCl > 30 mL/min) AND *Sequential Compression Device (SCD) Assessment and Plan Problem List: (1) Colitis ICD Codes: K52.9 - Noninfective gastroenteritis and colitis, unspecified (2) Pneumonia, bacterial ICD Codes: J15.9 - Unspecified bacterial pneumonia Status: Acute (3) Constipation ICD Codes: K59.00 - Constipation, unspecified (4) Psychological factors affecting medical condition ICD Codes: F54 - Psychological and behavioral factors associated with disorders or diseases classified elsewhere (5) Acute kidney injury superimposed on chronic kidney disease ICD Codes: N17.9 - Acute kidney failure, unspecified; N18.9 - Chronic kidney disease, unspecified Status: Acute (6) ESRD (end stage renal disease) ICD Codes: N18.6 - End stage renal disease Status: Chronic (7) CHF (congestive heart failure) ICD Codes: I50.9 - Heart failure, unspecified (8) Atrial fibrillation ICD Codes: I48.91 - Unspecified atrial fibrillation Status: Acute (9) DM (diabetes mellitus) ICD Codes: E11.9 - Type 2 diabetes mellitus without complications Status: Chronic (10) Aneurysm of basilar artery ICD Codes: I72.5 - Aneurysm of other precerebral arteries Status: Chronic (11) Leukocytosis ICD Codes: D72.829 - Elevated white blood cell count, unspecified Status: Acute (12) Weakness of both legs ICD Codes: R29.898 - Other symptoms and signs involving the musculoskeletal system Status: Acute (13) COPD (chronic obstructive pulmonary disease) ICD Codes: J44.9 - Chronic obstructive pulmonary disease, unspecified Status: Chronic (14) Intertrochanteric fracture of right hip ICD Codes: S72.141A - Displaced intertrochanteric fracture of right femur, initial encounter for closed fracture Status: Chronic (15) Constipation due to opioid therapy ICD Codes: K59.03 - Drug induced constipation; T40.2X5A - Adverse effect of other opioids, initial encounter (16) Dementia ICD Codes: F03.90 - Unspecified dementia without behavioral disturbance Status: Acute (17) Debility ICD Codes: R53.81 - Other malaise Assessment and Plan IV ABX HD PER [facility] QID VANCOMYCIN PO CHECK C DIF PT/OT/ST TELEMETRY DVT PX: HEPARIN BID GI PX: PPI SSI/INSULIN Discharge Planning BACK TO [facility] MAYBE TOMORROW Problem Qualifiers (1) Intertrochanteric fracture of right hip: (2) COPD (chronic obstructive pulmonary disease): Qualified Codes: J44.1 - Chronic obstructive pulmonary disease with (acute) exacerbation (3) Leukocytosis: Qualified Codes: D72.825 - Bandemia Alli Watkins MD Sep 12, 2017 07:34
[2017-09-12] MEDS ORDERED: LACTULOSE SYRUP 20 GM/30 ML CUP PO PRN (07:45)
[2017-09-12] MEDS ORDERED: SENNOSIDES 8.6 MG TAB PO PRN (07:45)
[2017-09-12] MEDS ORDERED: BISACODYL 10 MG SUPP RECTAL PRN (07:45)
[2017-09-12] MEDS ORDERED: ACETAMINOPHEN 325 MG TAB PO PRN ×2 (07:45→09:15)
[2017-09-12] MEDS ORDERED: MAGNESIUM HYDROXIDE SUSP 30 ML CUP PO PRN (07:45)
[2017-09-12] MEDS ORDERED: SODIUM CHLORIDE 0.9% FLUSH 10 ML FLUSH IV FLUSH PRN ×2 (07:45→09:15)
[2017-09-12] MEDS ORDERED: ONDANSETRON HCL 4 MG/2 ML VIAL IVP PRN (07:45)
[2017-09-12] MEDS ORDERED: NALOXONE HCL 0.4 MG/ML AMP IV PUSH PRN (07:45)
[2017-09-12] MEDS: RESP: ALBUTEROL 2.5 MG/IPRATROPIUM 0.5 MG NEB (SCH) NEB ×4 (07:58→19:35)
[2017-09-12] MEDS: DOCUSATE SODIUM 50 MG/SENNA 8.6 MG TAB PO SCH ×2 (09:00→21:00)
[2017-09-12] MEDS: ASPIRIN 81 MG CHEW TAB PO SCH (09:00)
[2017-09-12] MEDS: buPROPion HCL 150 MG SUSTAINED RELEASE TAB PO SCH (09:00)
[2017-09-12] MEDS: METOPROLOL TARTRATE 25 MG TAB PO SCH ×2 (09:00→23:14)
[2017-09-12] MEDS: MIDODRINE 5 MG TAB PO SCH ×3 (09:00→18:35)
[2017-09-12] MEDS ORDERED: buPROPion HCL 150 MG EXTENDED RELEASE TAB PO SCH (09:00)
[2017-09-12] MEDS: HEPARIN SODIUM - SQ 10,000 UNITS/ML VIAL SQ SCH ×2 (09:00→23:15)
[2017-09-12] MEDS: VANCOMYCIN 25 MG/ML SOLN 100 ML BOTTLE PO SCH ×3 (09:00→18:35)
[2017-09-12] MEDS: FLUoxetine HCL 20 MG CAP PO SCH (09:00)
[2017-09-12] MEDS: SODIUM CHLORIDE 0.9% FLUSH 10 ML FLUSH IV FLUSH SCH ×2 (09:00→23:13)
[2017-09-12] MEDS: CALCIUM ACETATE 667 MG CAP PO SCH ×3 (09:06→18:35)
[2017-09-12] MEDS ORDERED: SODIUM CHLOR 0.9% 1000 ML INJ 1,000 ML OTHER PRN ×2 (09:07)
[2017-09-12] MEDS ORDERED: SODIUM CHLOR 0.9% 1000 ML INJ 1,000 ML IV PRN (09:07)
[2017-09-12] MEDS ORDERED: ONDANSETRON HCL 4 MG/2 ML VIAL IV PUSH PRN (09:15)
[2017-09-12] MEDS ORDERED: HEPARIN SODIUM - IV 10,000 UNITS/10 ML VIAL IV FLUSH PRN (09:15)
[2017-09-12] MEDS ORDERED: NITROGLYCERIN 0.4 MG SL 25 TABS/BTL SL PRN (09:15)
[2017-09-12] MEDS ORDERED: diphenhydrAMINE HCL 25 MG CAP PO PRN (09:15)
[2017-09-12] MEDS ORDERED: GELATIN 12 MM/7 MM FOAM TOP PRN (09:15)
[2017-09-12] MEDS ORDERED: cloNIDine HCL 0.1 MG TAB PO PRN (09:15)
[2017-09-12] MEDS ORDERED: ALBUMIN 25% INJ 100 ML IV PRN (09:15)
[2017-09-12] MEDS ORDERED: MANNITOL 12.5 GM/50 ML VIAL IV PRN (09:15)
[2017-09-12] MEDS ORDERED: EPOETIN ALFA 10,000 UNITS/ML VIAL IV PUSH PRN (09:15)
--- NOTE | 2017-09-12 10:59 | PD.CONS ---
HPI Service Nephrology Consult Requested By Dr. Watkins Reason for Consult ESRD management Primary Care Physician Alli Watkins MD History of Present Illness Patient is a 66-year-old white female with history of lung cancer, status post resection, ESRD, cigarette smoking, COPD, recurrent pneumonias, patient is on hemodialysis on Saturday, and Saturday, she has developed cough and congestion and his as she is continued to smoke cigarettes, she states she is trying to cut back and now doing 3 cigarettes a day previously used to smoke heavily, she is seen during hemodialysis , she is depressed and crying during her dialysis session and stated that she is afraid she is not going to make it. He Review of Systems Constitutional: COMPLAINS OF: Fatigue, Weight loss Respiratory: COMPLAINS OF: Cough, Wheezing, Sputum production, Shortness of breath Cardiovascular: COMPLAINS OF: Lower Extremity Edema, Orthopnea Musculoskeletal: COMPLAINS OF: Joint pain, Muscle aches, Stiffness, Back pain Neurologic: COMPLAINS OF: Abnormal gait Psychiatric: COMPLAINS OF: Anxiety, Depression Past Family Social History Allergies: Coded Allergies: morphine (Verified Allergy, Severe, RASH, 08/20/17) ciprofloxacin (Verified Adverse Reaction, Intermediate, NAUSEAS, 08/20/17) codeine (Verified Adverse Reaction, Intermediate, Vertigo, 08/20/17) Past Medical History End-stage renal disease on hemodialysis Lung cancer History of smoking Anemia Secondary hyperparathyroidism History of heart failure COPD Osteoarthritis Past Surgical History Lung cancer resection AV fistula left arm Cholecystectomy Brain aneurysm clipped Reported Medications Reported Meds & Active Scripts Active Oxycodone (Oxycodone HCl) 10 Mg Tab 10 Mg PO Q6HR PRN Xanax (Alprazolam) 1 Mg Tab 1 Mg PO BID PRN 60 Days Prednisone 20 Mg Tab 20 Mg PO BID 30 Days Cardizem (Diltiazem HCl) 30 Mg Tab 30 Mg PO Q6HR 30 Days Catapres (Clonidine) 0.1 Mg Tab 0.1 Mg PO UNSCH PRN 30 Days Lipitor (Atorvastatin Calcium) 10 Mg Tab 10 Mg PO HS 30 Days Metoprolol Tartrate 25 Mg Tab 25 Mg PO Q12HR Hold if systolic BP < 110 or Heart rate < 65 Levaquin (Levofloxacin) 750 Mg Tablet 750 Mg PO EVERY OTHER DAY Vitamin D3 (Cholecalciferol) 2,000 Unit Cap 2,000 Units PO DAILY Fluoxetine (Fluoxetine HCl) 20 Mg Tab 20 Mg PO DAILY Midodrine 10 Mg Tab 10 Mg PO TID Calcium Acetate (Calcium Acetate (Phosphate Bin) 667 Mg Cap 667 Mg PO TIDPC Spiriva Handihaler (Tiotropium Inh) 18 Mcg Cap 18 Mcg INH DAILY 30 Days 1 capsule = 18 mcg Reported Ventolin Hfa 18 GM Inh (Albuterol Sulfate) 90 Mcg/Act Aer 1 Puff INH Q4H PRN Melatonin Cr (Melatonin) 3 Mg Tab Colace (Docusate Sodium) 100 Mg Capsule 200 Mg PO HS Guaifenesin Liq (Guaifenesin) 100 mg/5 ML Soln 200 Mg PO Q4H PRN Breo Ellipta Inh (Fluticasone/Vilanterol) 100-25 Mcg/Act Inh 1 Puff INH DAILY Use daily at the same time. Rinse mouth after each use. Tylenol (Acetaminophen) 325 Mg Tab 650 Mg PO Q4H PRN Milk of Magnesia Liq (Magnesium Hydroxide) 400 Mg/5 Ml Susp 30 Ml PO HS PRN Nitroglycerin SL (Nitroglycerin) 0.4 Mg Subl 0.4 Mg SL DIRECTED PRN ONE TABLET UNDER THE TONGUE NEEDED FOR CHEST PAIN, MAY REPEAT EVERY FIVE MINUTES FOR A TOTAL OF 3 DOSES OR CALL 911 IF NO RELIEF Gabapentin 100 Mg Cap 100 Mg PO BID Bupropion HCl ER 24 HR (Bupropion HCl) 150 Mg Tab 150 Mg PO DAILY Lidopril Topical (Lidocaine-Prilocaine Topical) 2.5-2.5 % Cream 1 Applic TOPICAL TUTHSA PRN Apply to shunt site daily every Saturday, and Saturday 1hr prior to dialysis Zofran (Ondansetron HCl) 4 Mg Tab 4 Mg PO Q6HR PRN Dialyvite 800 (B-Complex W/ C & Folic Acid) 1 Tab 1 Tab PO DAILY Ventolin Hfa 18 GM Inh (Albuterol Sulfate) 90 Mcg/Act Aer 2 Puff INH Q4HR PRN Mucinex DM (Dextromethorphan-Guaifenesin) 30-600 Mg Tab 2 Tab PO Q12HR PRN Aspirin 81 Mg Chew 81 Mg PO DAILY Oxygen tank (Oxygen) 1 Ea Tank 2 Liter EDUARDO.CANULA HS Oxygen Concentrator Portable Gaseous 2 L/min via Nasal Cannula Continuous For 99 months Active Ordered Medications Current Medications Medications (Trade) Dose Ordered Sig/Carlos Route Start Time Stop Time Status Last Admin (Aspirin Chew) 81 mg DAILY PO 09/12/17 09:00 (Phoslo) 667 mg TIDPC PO 09/12/17 09:30 (Catapres) 0.1 mg UNSCH PRN PO 09/11/17 21:00 (Cardizem) 30 mg Q6HR PO 09/12/17 00:00 09/12/17 06:08 (PROzac) 20 mg DAILY PO 09/12/17 09:00 (Emla Cream) 1 applic TuThSa PRN TOPICAL 09/11/17 21:00 (Lopressor) 25 mg Q12HR PO 09/11/17 21:00 09/11/17 22:30 (Proamatine) 10 mg TID PO 09/12/17 09:00 (Roxicodone) 10 mg Q6HR PRN PO 09/11/17 21:00 (Duoneb Neb) 1 ampule QID NEB NEB 09/12/17 08:00 09/12/17 07:58 (Ativan) 0.5 mg Q8H PRN PO 09/11/17 21:00 (SoluMEDROL INJ) 80 mg Q6HR IV 09/12/17 00:00 09/12/17 06:09 (Protonix Inj) 40 mg Q24H IV PUSH 09/11/17 21:00 09/11/17 22:31 Azithromycin 500 mg/Sodium Chloride 250 ml @ 250 mls/hr Q24H IV 09/12/17 20:00 (Vancomycin 25 Mg/ml Liq) 250 mg QID PO 09/12/17 09:00 (Wellbutrin Sr) 150 mg DAILY PO 09/12/17 09:00 Patient Own Medication PT OWN MED: MUCI... Q12H PRN PO 09/11/17 21:45 Future Hold (D50w (Vial) Inj) 50 ml UNSCH PRN IV PUSH 09/11/17 23:30 (Glucagon Inj) 1 mg UNSCH PRN OTHER 09/11/17 23:30 (NovoLOG SUPPLEMENTAL SCALE) 1 ACHS SLIDING SCALE SQ 09/11/17 23:25 09/12/17 09:15 (NS Flush) 2 ml UNSCH PRN IV FLUSH 09/12/17 07:45 (NS Flush) 2 ml BID IV FLUSH 09/12/17 09:00 (Tylenol) 650 mg Q4H PRN PO 09/12/17 07:45 (Zofran Inj) 4 mg Q6H PRN IVP 09/12/17 07:45 (Ambien) 5 mg HS PRN PO 09/12/17 21:00 (Heparin Inj) 5,000 units Q12H SQ 09/12/17 09:00 (Narcan Inj) 0.4 mg UNSCH PRN IV PUSH 09/12/17 07:45 (Marixa-Colace) 1 tab BID PO 09/12/17 09:00 (Milk Of Magnesia Liq) 30 ml Q12H PRN PO 09/12/17 07:45 (Senokot) 17.2 mg Q12H PRN PO 09/12/17 07:45 (Dulcolax Supp) 10 mg DAILY PRN RECTAL 09/12/17 07:45 (Lactulose Liq) 30 ml DAILY PRN PO 09/12/17 07:45 Sodium Chloride 1,000 ml @ 0 mls/hr Q0M PRN OTHER 09/12/17 09:07 (Heparin Inj) 8,000 units UNSCH PRN IV FLUSH 09/12/17 09:15 Sodium Chloride 1,000 ml @ 200 mls/hr Q5H PRN IV 09/12/17 09:07 Sodium Chloride 1,000 ml @ 0 mls/hr Q0M PRN OTHER 09/12/17 09:07 (Mannitol Inj) 12.5 gm UNSCH PRN IV 09/12/17 09:15 Albumin Human 100 ml @ 60 mls/hr UNSCH PRN IV 09/12/17 09:15 (NS Flush) 5 ml UNSCH PRN IV FLUSH 09/12/17 09:15 (Zofran Inj) 4 mg UNSCH PRN IV PUSH 09/12/17 09:15 (Tylenol) 650 mg UNSCH PRN PO 09/12/17 09:15 (Benadryl) 25 mg UNSCH PRN PO 09/12/17 09:15 (Nitrostat Sl) 0.4 mg UNSCH PRN SL 09/12/17 09:15 (Catapres) 0.1 mg UNSCH PRN PO 09/12/17 09:15 (Epogen Inj) 4,000 units UNSCH PRN IV PUSH 09/12/17 09:15 (Gelfoam 12 Mm/7 Mm Top) 1 foam UNSCH PRN TOP 09/12/17 09:15 Family History Noncontributory Social History Smokes cigarettes but denies alcohol use Physical Exam Vital Signs Vital Signs Date Time Temp Pulse Resp B/P (MAP) Pulse Ox O2 Delivery O2 Flow Rate FiO2 09/12/17 07:42 98.0 67 20 127/60 (82) 98 09/12/17 06:07 66 130/61 (84) 09/12/17 04:55 20 09/12/17 03:43 98.0 66 17 126/57 (80) 96 09/12/17 00:04 98.3 71 16 136/61 (86) 97 09/11/17 21:15 98.2 76 17 121/58 (79) 100 09/11/17 19:27 09/11/17 19:00 74 18 143/66 (91) 100 Nasal Cannula 2.00 09/11/17 17:51 20 100 Nasal Cannula 2.00 09/11/17 15:04 98.3 65 16 136/70 (92) 100 Physical Exam GENERAL: Well-nourished, well-developed patient. SKIN: Warm and dry. HEAD: Normocephalic. EYES: No scleral icterus. No injection or drainage. NECK: Supple, trachea midline. No JVD or lymphadenopathy. CARDIOVASCULAR: Regular rate and rhythm without murmurs, gallops, or rubs. RESPIRATORY: Breath sounds diminished at bases with rhonchi and Rales GASTROINTESTINAL: Abdomen soft, non-tender, nondistended. EXTREMITIES: No cyanosis, 1+ edema. NEUROLOGICAL: Awake, alert, and oriented x 3. Non-focal. Laboratory Laboratory Tests Test 09/11/17 16:25 White Blood Count 18.9 Red Blood Count 3.39 Hemoglobin 10.3 Hematocrit 31.6 Mean Corpuscular Volume 93.3 Mean Corpuscular Hemoglobin 30.4 Mean Corpuscular Hemoglobin Concent 32.5 Red Cell Distribution Width 18.1 Platelet Count 125 Mean Platelet Volume 8.3 Neutrophils (%) (Auto) 92.6 Lymphocytes (%) (Auto) 1.1 Monocytes (%) (Auto) 5.7 Eosinophils (%) (Auto) 0.5 Basophils (%) (Auto) 0.1 Neutrophils # (Auto) 17.5 Lymphocytes # (Auto) 0.2 Monocytes # (Auto) 1.1 Eosinophils # (Auto) 0.1 Basophils # (Auto) 0.0 CBC Comment DIFF FINAL Differential Comment Prothrombin Time 11.2 Prothromb Time International Ratio 1.1 Activated Partial Thromboplast Time 25.5 Blood Urea Nitrogen 57 Creatinine 4.61 Random Glucose 304 Total Protein 6.2 Albumin 3.0 Calcium Level 8.7 Alkaline Phosphatase 143 Aspartate Amino Transf (AST/SGOT) 5 Alanine Aminotransferase (ALT/SGPT) 20 Total Bilirubin 0.7 Sodium Level 134 Potassium Level 4.4 Chloride Level 99 Carbon Dioxide Level 24.7 Anion Gap 10 Estimat Glomerular Filtration Rate 9 Lactic Acid Level 1.4 Magnesium Level 2.1 B-Type Natriuretic Peptide 380 Lipase 206 Thyroid Stimulating Hormone 3rd Gen 1.210 Result Diagram: 09/11/17 1625 09/11/17 1625 Imaging Last Impressions Chest X-Ray 09/11/17 1547 Signed Impressions: Service Date/Time: Monday, September 11, 2017 16:08 - CONCLUSION: 1. There is an area of consolidation in the left lung. This has been present on several prior exams and is relatively stable. This probably represents an area of scarring and fibrosis. Shaheed Sheets MD Assessment and Plan Problem List: (1) ESRD (end stage renal disease) ICD Codes: N18.6 - End stage renal disease Status: Chronic Plan: Patient is seen during hemodialysis tolerating it well 3 L of fluid will be taken off\ Emphasized on she needs to quit smoking completely Continue with current antibiotic and COPD treatment (2) Pneumonia, bacterial ICD Codes: J15.9 - Unspecified bacterial pneumonia Status: Acute Plan: Patient is on Zithromax and steroids (3) COPD (chronic obstructive pulmonary disease) ICD Codes: J44.9 - Chronic obstructive pulmonary disease, unspecified Status: Chronic Plan: Steroids and nebulizer Problem Qualifiers (1) COPD (chronic obstructive pulmonary disease): Qualified Codes: J44.1 - Chronic obstructive pulmonary disease with (acute) exacerbation Oscar Jurado MD Sep 12, 2017 10:59
[2017-09-12 18:19] LABS: AUTOMATED NEUTROPHIL # 18.1 TH/MM3 (1.8-7.7); BASOPHIL % 0.2 % (0.0-2.0); HEMATOCRIT 29.8 % (35.0-46.0); HEMOGLOBIN 9.9 GM/DL (11.6-15.3); LYMPH % 0.4 % (9.0-44.0); LYMPHOCYTE # 0.1 TH/MM3 (1.0-4.8); MEAN CELL VOLUME 91.7 FL (80.0-100.0); MEAN CORPUSCULAR HEMOGLOBIN 30.5 PG (27.0-34.0); MEAN CORPUSCULAR HGB CONC 33.2 % (32.0-36.0); MEAN PLATELET VOLUME 9.2 FL (7.0-11.0); MONO % 1.5 % (0.0-8.0); MONOCYTE # 0.3 TH/MM3 (0-0.9); NEUT % 97.9 % (16.0-70.0); PLATELET COUNT 137 TH/MM3 (150-450); RED BLOOD COUNT 3.25 MIL/MM3 (4.00-5.30); RED CELL DISTRIBUTION WIDTH 18.2 % (11.6-17.2); WHITE BLOOD COUNT 18.5 TH/MM3 (4.0-11.0)
[2017-09-12 18:29] LABS: BILIRUBIN, URINE NEG (NEG); BLOOD, URINE MOD (NEG); GLUCOSE,URINE 1000 mg/dL (NEG); KETONE, URINE NEG (NEG); NITRITE,URINE NEG (NEG); PH, URINE 6.5 (5.0-8.5); URINE COLOR YELLOW (YELLW/STRAW); URINE LEUKOCYTE ESTERASE NEG (NEG)
[2017-09-12 18:48] LABS: ALBUMIN 2.9 GM/DL (3.4-5.0); ALKALINE PHOSPHATASE 93 U/L (45-117); ALT (GPT) 19 U/L (10-53); AST (GOT) 11 U/L (15-37); BICARBONATE 29.1 MEQ/L (21.0-32.0); BLOOD UREA NITROGEN 39 MG/DL (7-18); CALCIUM 8.4 MG/DL (8.5-10.1); CHLORIDE 97 MEQ/L (98-107); CREATININE 3.75 MG/DL (0.50-1.00); GLOMERULAR FILTRATION RATE 12 ML/MIN (>89); GLUCOSE,RANDOM 217 MG/DL (74-106); SODIUM (NA) 138 MEQ/L (136-145); TOTAL BILIRUBIN ADULT 0.4 MG/DL (0.2-1.0); TOTAL PROTEIN 6.3 GM/DL (6.4-8.2)
[2017-09-12] MEDS ORDERED: ZOLPIDEM TARTRATE 5 MG TAB PO PRN (21:00)
[2017-09-12] MEDS: PANTOPRAZOLE SODIUM 40 MG VIAL IV PUSH SCH (23:13)
[2017-09-12] MEDS: AZITHROMYCIN INJ 500 MG in SODIUM CHLOR 0.9% 250 ML INJ 250 ML IV SCH (23:14)
[2017-09-13] VITALS (15 sets, daily range): BP systolic 117–183; BP diastolic 60–80; PULSE 54–72; RESP 16–18; TEMP 97.6–98.7; O2SAT 96–99
[2017-09-13] MEDS: MEDIUM DOSE INSULIN NOVOLOG SUPPLEMENTAL SCALE SQ SCH ×5 (00:06→22:54)
[2017-09-13] MEDS: VANCOMYCIN 25 MG/ML SOLN 100 ML BOTTLE PO SCH ×5 (00:06→20:45)
[2017-09-13] MEDS: DILTIAZEM HCL 30 MG TAB PO SCH ×5 (02:09→18:32)
[2017-09-13] MEDS: methylPREDNISolone SOD SUCC 125 MG/2 ML VIAL IV SCH ×4 (02:09→18:00)
[2017-09-13] MEDS: RESP: ALBUTEROL 2.5 MG/IPRATROPIUM 0.5 MG NEB (SCH) NEB ×4 (07:47→19:24)
[2017-09-13] MEDS: DOCUSATE SODIUM 50 MG/SENNA 8.6 MG TAB PO SCH ×2 (09:39→20:45)
[2017-09-13] MEDS: CALCIUM ACETATE 667 MG CAP PO SCH ×3 (09:39→18:32)
[2017-09-13] MEDS: FLUoxetine HCL 20 MG CAP PO SCH (09:39)
[2017-09-13] MEDS: MIDODRINE 5 MG TAB PO SCH ×3 (09:39→18:33)
[2017-09-13] MEDS: ASPIRIN 81 MG CHEW TAB PO SCH (09:39)
[2017-09-13] MEDS: HEPARIN SODIUM - SQ 10,000 UNITS/ML VIAL SQ SCH ×2 (09:40→20:45)
[2017-09-13] MEDS: buPROPion HCL 150 MG SUSTAINED RELEASE TAB PO SCH (09:40)
[2017-09-13] MEDS: SODIUM CHLORIDE 0.9% FLUSH 10 ML FLUSH IV FLUSH SCH ×2 (09:40→20:44)
[2017-09-13 09:41] LABS: AUTOMATED NEUTROPHIL # 14.7 TH/MM3 (1.8-7.7); BASOPHIL % 0.2 % (0.0-2.0); HEMATOCRIT 31.6 % (35.0-46.0); HEMOGLOBIN 10.2 GM/DL (11.6-15.3); LYMPH % 0.7 % (9.0-44.0); LYMPHOCYTE # 0.1 TH/MM3 (1.0-4.8); MEAN CELL VOLUME 93.7 FL (80.0-100.0); MEAN CORPUSCULAR HEMOGLOBIN 30.4 PG (27.0-34.0); MEAN CORPUSCULAR HGB CONC 32.4 % (32.0-36.0); MEAN PLATELET VOLUME 8.6 FL (7.0-11.0); MONO % 1.1 % (0.0-8.0); MONOCYTE # 0.2 TH/MM3 (0-0.9); PLATELET COUNT 139 TH/MM3 (150-450); RED BLOOD COUNT 3.37 MIL/MM3 (4.00-5.30); RED CELL DISTRIBUTION WIDTH 18.2 % (11.6-17.2)
[2017-09-13] MEDS: METOPROLOL TARTRATE 25 MG TAB PO SCH ×2 (09:45→20:45)
--- NOTE | 2017-09-13 10:17 | MB ---
cc: Anshul Gusman MD DATE: 09/12/2017 HISTORY OF PRESENT ILLNESS: Allie is a very pleasant 66-year-old lady with history of end-stage renal failure, nonobstructive coronary disease and COPD, tobacco use, readmitted with respiratory distress. Currently, in no acute distress. Denies chest pain, fevers or cough, . PAST MEDICAL HISTORY: Per History of Present Illness. She also has a history of atrial fibrillation. She has a history of cerebral aneurysm, status post stenting and clipping, arthritis, depression, lobectomy and radiation therapy due to lung cancer, congestive heart failure, diabetes, cholecystectomy, right femur repair. SOCIAL HISTORY: She smokes a pack of cigarettes a day. Denies alcohol use. ALLERGIES: MORPHINE, CIPROFLOXACIN AND CODEINE. MEDICATIONS PRIOR TO ADMISSION: 1. Oxycodone. 2. Xanax. 3. Prednisone 20 mg b.i.d. 4. Cardizem 30 mg every 6 hours. 5. Catapres 0.1 mg p.r.n. 6. Lipitor 10 mg at bedtime. 7. Metoprolol 25 every 12 hours. 8. Levaquin. 9. Vitamin D3. 10. Fluoxetine. 11. Midodrine. 12. Calcium. 13. Spiriva. 14. Colace. 14. Guaifenesin. 15. Breo Ellipta. 16. Home oxygen. MEDICATIONS IN THE HOSPITAL: 1. Ambien. 2. Azithromycin. 3. Calcium acetate. 4. Aspirin 81 mg daily. 5. Midodrine 10 mg t.i.d. 6. Fluoxetine 20 mg daily. 7. Heparin 5000 subcutaneous every 12 hours. PHYSICAL EXAMINATION: VITAL SIGNS: Blood pressure 127/60, pulse 67, respiration rate 20, temperature 98.0. GENERAL: She is alert and oriented x 3, in no acute distress. NECK: Supple. No JVD, no bruit. CARDIOVASCULAR: S1, S2. No murmurs, rubs or gallops. LUNGS: Clear to auscultation bilaterally. ABDOMEN: Soft, nontender, nondistended with positive bowel sounds. EXTREMITIES: No extremity edema. LABORATORY DATA: White count 18.9, hemoglobin 10.3, hematocrit 31.6, platelet count 125. Sodium 134, potassium 4.4, chloride 99, BUN 57, creatinine 4.61. BNP is 380, albumin 3.0. IMAGING: Chest x-ray, there is an area of consolidation in the left lung. This has been present on several prior exams and is relatively stable. This probably represents an area of scarring and fibrosis. ECHOCARDIOGRAM: Normal sinus rhythm at 67 beats per minute, 0.[address] depression in V4, V5, V6. SHE HAS THE FOLLOWING DIAGNOSES: 1. Chronic obstructive pulmonary disease. 2. Tobacco use. 3. Pneumonia. 4. Coronary artery disease. 5. Paroxysmal atrial fibrillation. 6. Hyponatremia. 7. End-stage renal failure. 8. Diabetes mellitus. DISCUSSION AND RECOMMENDATIONS: The patient should be on a statin. We will start her on Lipitor 20 at bedtime. Check fasting lipids. LFTs are within normal limits. She is on aspirin. We had a long discussion last admission as the patient has a history of cerebral aneurysm and there is some concern for risk of bleeding and noncompliance. The patient has deferred decision to her daughter. Her daughter has indicated to me that she does not want her to be on Coumadin or novel oral anticoagulant agent, which is indicated due to her CHADS score of 4. However, again, the patient and her daughter have refused Coumadin or novel oral anticoagulant agent even though they understand the risk of CVA is higher on aspirin. The patient will continue aspirin 81 mg daily. We will continue to follow. MD MARY BETH Gutierrez/SILVINO , 05:23 PM , 06:06 PM
[2017-09-13 10:20] LABS: BICARBONATE 23.1 MEQ/L (21.0-32.0); CALCIUM 8.5 MG/DL (8.5-10.1); CHOLESTEROL/ HDL RATIO 2.82 RATIO; CREATININE 4.66 MG/DL (0.50-1.00)
--- NOTE | 2017-09-13 10:24 | HHI.FPPN ---
Subjective Remarks VERY CONGESTED ABLE TO SIT UP SOME TODAY C/O SPUTUM AND WHEEZING D/W RN Objective Vitals Vital Signs Date Time Temp Pulse Resp B/P (MAP) Pulse Ox O2 Delivery O2 Flow Rate FiO2 09/13/17 07:48 97 21 09/13/17 07:34 97.6 58 16 134/62 (86) 96 09/13/17 06:52 66 09/13/17 05:29 64 118/60 (79) 09/13/17 03:09 98.2 66 16 137/63 (87) 99 09/13/17 02:04 72 18 133/80 (97) 99 09/13/17 00:44 18 09/12/17 23:11 98.4 72 18 132/69 (90) 95 09/12/17 19:42 76 17 124/57 (79) 95 09/12/17 19:37 96 09/12/17 18:22 97.6 76 20 119/58 (78) 95 09/12/17 15:32 77 09/12/17 11:58 I/O 09/12/17 09/12/17 09/12/17 09/13/17 09/13/17 09/13/17 07:00 15:00 23:00 07:00 15:00 23:00 Intake Total 240 ml 480 ml Output Total 2500 ml Balance 240 ml -2500 ml 480 ml Intake Oral 240 ml 480 ml Output Hemodialysis 2500 ml # Voids 1 1 2 # Bowel Movements 1 Result Diagram: 09/13/17 0903 09/12/17 1740 Imaging Last 72 hours Impressions Chest X-Ray 09/11/17 1547 Signed Impressions: Service Date/Time: Monday, September 11, 2017 16:08 - CONCLUSION: 1. There is an area of consolidation in the left lung. This has been present on several prior exams and is relatively stable. This probably represents an area of scarring and fibrosis. Shaheed Sheets MD Objective Remarks GENERAL: SKIN: Warm and dry. HEAD: Atraumatic. Normocephalic. EYES: Pupils equal and round. No scleral icterus. No injection or drainage. ENT: No nasal bleeding or discharge. Mucous membranes pink and moist. NECK: Trachea midline. No JVD. CARDIOVASCULAR: Regular rate and rhythm. RESPIRATORY: L BASE CRACKLES, B RONCHI TO APICES, HARSH CONGESTED COUGH GASTROINTESTINAL: Abdomen soft, non-tender, nondistended. Hepatic and splenic margins not palpable. MUSCULOSKELETAL: Extremities without clubbing, cyanosis, or edema. No obvious deformities. NEUROLOGICAL: Awake and alert. No obvious cranial nerve deficits. Motor grossly within normal limits. 2 out of 5 muscle strength in the arms and legs. Normal speech. PSYCHIATRIC: Appropriate mood and affect; insight and judgment normal. Medications and IVs Current Medications Medications (Trade) Dose Ordered Sig/Carlos Route Start Time Stop Time Status Last Admin (Aspirin Chew) 81 mg DAILY PO 09/12/17 09:00 09/13/17 09:39 (Phoslo) 667 mg TIDPC PO 09/12/17 09:30 09/13/17 09:39 (Catapres) 0.1 mg UNSCH PRN PO 09/11/17 21:00 (Cardizem) 30 mg Q6HR PO 09/12/17 00:00 09/13/17 06:51 (PROzac) 20 mg DAILY PO 09/12/17 09:00 09/13/17 09:39 (Emla Cream) 1 applic TuThSa PRN TOPICAL 09/11/17 21:00 (Lopressor) 25 mg Q12HR PO 09/11/17 21:00 09/13/17 09:45 (Proamatine) 10 mg TID PO 09/12/17 09:00 09/13/17 09:39 (Roxicodone) 10 mg Q6HR PRN PO 09/11/17 21:00 09/12/17 23:14 (Duoneb Neb) 1 ampule QID NEB NEB 09/12/17 08:00 09/13/17 07:47 (Ativan) 0.5 mg Q8H PRN PO 09/11/17 21:00 (SoluMEDROL INJ) 80 mg Q6HR IV 09/12/17 00:00 09/13/17 06:51 (Protonix Inj) 40 mg Q24H IV PUSH 09/11/17 21:00 09/12/17 23:13 Azithromycin 500 mg/Sodium Chloride 250 ml @ 250 mls/hr Q24H IV 09/12/17 20:00 09/12/17 23:14 (Vancomycin 25 Mg/ml Liq) 250 mg QID PO 09/12/17 09:00 09/13/17 09:40 (Wellbutrin Sr) 150 mg DAILY PO 09/12/17 09:00 09/13/17 09:40 Patient Own Medication PT OWN MED: MUCI... Q12H PRN PO 09/11/17 21:45 Future Hold (D50w (Vial) Inj) 50 ml UNSCH PRN IV PUSH 09/11/17 23:30 (Glucagon Inj) 1 mg UNSCH PRN OTHER 09/11/17 23:30 (NovoLOG SUPPLEMENTAL SCALE) 1 ACHS SLIDING SCALE SQ 09/11/17 23:25 09/13/17 09:35 (NS Flush) 2 ml UNSCH PRN IV FLUSH 09/12/17 07:45 (NS Flush) 2 ml BID IV FLUSH 09/12/17 09:00 09/13/17 09:40 (Tylenol) 650 mg Q4H PRN PO 09/12/17 07:45 (Zofran Inj) 4 mg Q6H PRN IVP 09/12/17 07:45 (Ambien) 5 mg HS PRN PO 09/12/17 21:00 (Heparin Inj) 5,000 units Q12H SQ 09/12/17 09:00 09/13/17 09:40 (Narcan Inj) 0.4 mg UNSCH PRN IV PUSH 09/12/17 07:45 (Marixa-Colace) 1 tab BID PO 09/12/17 09:00 09/13/17 09:39 (Milk Of Magnesia Liq) 30 ml Q12H PRN PO 09/12/17 07:45 (Senokot) 17.2 mg Q12H PRN PO 09/12/17 07:45 (Dulcolax Supp) 10 mg DAILY PRN RECTAL 09/12/17 07:45 (Lactulose Liq) 30 ml DAILY PRN PO 09/12/17 07:45 Sodium Chloride 1,000 ml @ 0 mls/hr Q0M PRN OTHER 09/12/17 09:07 (Heparin Inj) 8,000 units UNSCH PRN IV FLUSH 09/12/17 09:15 Sodium Chloride 1,000 ml @ 200 mls/hr Q5H PRN IV 09/12/17 09:07 Sodium Chloride 1,000 ml @ 0 mls/hr Q0M PRN OTHER 09/12/17 09:07 (Mannitol Inj) 12.5 gm UNSCH PRN IV 09/12/17 09:15 Albumin Human 100 ml @ 60 mls/hr UNSCH PRN IV 09/12/17 09:15 (NS Flush) 5 ml UNSCH PRN IV FLUSH 09/12/17 09:15 (Zofran Inj) 4 mg UNSCH PRN IV PUSH 09/12/17 09:15 (Tylenol) 650 mg UNSCH PRN PO 09/12/17 09:15 (Benadryl) 25 mg UNSCH PRN PO 09/12/17 09:15 (Nitrostat Sl) 0.4 mg UNSCH PRN SL 09/12/17 09:15 (Catapres) 0.1 mg UNSCH PRN PO 09/12/17 09:15 (Epogen Inj) 4,000 units UNSCH PRN IV PUSH 09/12/17 09:15 (Gelfoam 12 Mm/7 Mm Top) 1 foam UNSCH PRN TOP 09/12/17 09:15 A/P Assessment and Plan IV ABX HD PER LEGAL INVESTIGATOR YINKA QID VANCOMYCIN PO CHECK C DIF PT/OT/ST TELEMETRY DVT PX: HEPARIN BID GI PX: PPI SSI/INSULIN AM LABS, WBC'S TRENDING DOWN SLOWLY Discharge Planning BACK TO [facility] MAYBE TOMORROW IF NOT CONGESTED AND MEDICALLY STABLE. PT OBS TWO MN, EXPECT AT LEAST 1-2 MORE D INPT STAY FOR THE A/P OUTLINED. PT WOULD RETURN TO THE ER WITHIN ONE DAY IF SHE IS NOT CLEARED OF HER PNA. Problem List: (1) Pneumonia, bacterial ICD Codes: J15.9 - Unspecified bacterial pneumonia Status: Acute (2) Constipation due to opioid therapy ICD Codes: K59.03 - Drug induced constipation; T40.2X5A - Adverse effect of other opioids, initial encounter (3) Intertrochanteric fracture of right hip ICD Codes: S72.141A - Displaced intertrochanteric fracture of right femur, initial encounter for closed fracture Status: Chronic (4) Colitis ICD Codes: K52.9 - Noninfective gastroenteritis and colitis, unspecified (5) Impaired mobility and activities of daily living ICD Codes: Z74.09 - Other reduced mobility Status: Acute (6) Shortness of breath ICD Codes: R06.02 - Shortness of breath (7) Acute kidney injury superimposed on chronic kidney disease ICD Codes: N17.9 - Acute kidney failure, unspecified; N18.9 - Chronic kidney disease, unspecified Status: Acute (8) Aneurysm of basilar artery ICD Codes: I72.5 - Aneurysm of other precerebral arteries Status: Chronic (9) Psychological factors affecting medical condition ICD Codes: F54 - Psychological and behavioral factors associated with disorders or diseases classified elsewhere (10) DM (diabetes mellitus) ICD Codes: E11.9 - Type 2 diabetes mellitus without complications Status: Chronic (11) Debility ICD Codes: R53.81 - Other malaise (12) ESRD (end stage renal disease) ICD Codes: N18.6 - End stage renal disease Status: Chronic (13) CHF (congestive heart failure) ICD Codes: I50.9 - Heart failure, unspecified (14) Dementia ICD Codes: F03.90 - Unspecified dementia without behavioral disturbance Status: Acute (15) Atrial fibrillation ICD Codes: I48.91 - Unspecified atrial fibrillation Status: Acute Problem Qualifiers (1) Intertrochanteric fracture of right hip: Alli Watkins MD Sep 13, 2017 10:24
[2017-09-13] MEDS ORDERED: HALOPERIDOL LACTATE 5 MG/ML AMP IM PRN (12:30)
--- NOTE | 2017-09-13 17:31 | PD.CARD.PN ---
Subjective Subjective Remarks alert in nad Objective Medications Current Medications Medications (Trade) Dose Ordered Sig/Carlos Route Start Time Stop Time Status Last Admin (Aspirin Chew) 81 mg DAILY PO 09/12/17 09:00 09/13/17 09:39 (Phoslo) 667 mg TIDPC PO 09/12/17 09:30 09/13/17 13:51 (Cardizem) 30 mg Q6HR PO 09/12/17 00:00 09/13/17 13:51 (PROzac) 20 mg DAILY PO 09/12/17 09:00 09/13/17 09:39 (Emla Cream) 1 applic TuThSa PRN TOPICAL 09/11/17 21:00 (Lopressor) 25 mg Q12HR PO 09/11/17 21:00 09/13/17 09:45 (Proamatine) 10 mg TID PO 09/12/17 09:00 09/13/17 09:39 (Roxicodone) 10 mg Q6HR PRN PO 09/11/17 21:00 09/13/17 13:51 (Duoneb Neb) 1 ampule QID NEB NEB 09/12/17 08:00 09/13/17 07:47 (Ativan) 0.5 mg Q8H PRN PO 09/11/17 21:00 (SoluMEDROL INJ) 80 mg Q6HR IV 09/12/17 00:00 09/13/17 12:41 (Protonix Inj) 40 mg Q24H IV PUSH 09/11/17 21:00 09/12/17 23:13 Azithromycin 500 mg/Sodium Chloride 250 ml @ 250 mls/hr Q24H IV 09/12/17 20:00 09/12/17 23:14 (Vancomycin 25 Mg/ml Liq) 250 mg QID PO 09/12/17 09:00 09/13/17 09:40 (Wellbutrin Sr) 150 mg DAILY PO 09/12/17 09:00 09/13/17 09:40 Patient Own Medication PT OWN MED: MUCI... Q12H PRN PO 09/11/17 21:45 Future Hold (D50w (Vial) Inj) 50 ml UNSCH PRN IV PUSH 09/11/17 23:30 (Glucagon Inj) 1 mg UNSCH PRN OTHER 09/11/17 23:30 (NovoLOG SUPPLEMENTAL SCALE) 1 ACHS SLIDING SCALE SQ 09/11/17 23:25 09/13/17 13:12 (NS Flush) 2 ml UNSCH PRN IV FLUSH 09/12/17 07:45 (NS Flush) 2 ml BID IV FLUSH 09/12/17 09:00 09/13/17 09:40 (Tylenol) 650 mg Q4H PRN PO 09/12/17 07:45 (Zofran Inj) 4 mg Q6H PRN IVP 09/12/17 07:45 (Ambien) 5 mg HS PRN PO 09/12/17 21:00 (Heparin Inj) 5,000 units Q12H SQ 09/12/17 09:00 09/13/17 09:40 (Narcan Inj) 0.4 mg UNSCH PRN IV PUSH 09/12/17 07:45 (Marixa-Colace) 1 tab BID PO 09/12/17 09:00 09/13/17 09:39 (Milk Of Magnesia Liq) 30 ml Q12H PRN PO 09/12/17 07:45 (Senokot) 17.2 mg Q12H PRN PO 09/12/17 07:45 (Dulcolax Supp) 10 mg DAILY PRN RECTAL 09/12/17 07:45 (Lactulose Liq) 30 ml DAILY PRN PO 09/12/17 07:45 Sodium Chloride 1,000 ml @ 0 mls/hr Q0M PRN OTHER 09/12/17 09:07 (Heparin Inj) 8,000 units UNSCH PRN IV FLUSH 09/12/17 09:15 Sodium Chloride 1,000 ml @ 200 mls/hr Q5H PRN IV 09/12/17 09:07 Sodium Chloride 1,000 ml @ 0 mls/hr Q0M PRN OTHER 09/12/17 09:07 (Mannitol Inj) 12.5 gm UNSCH PRN IV 09/12/17 09:15 Albumin Human 100 ml @ 60 mls/hr UNSCH PRN IV 09/12/17 09:15 (NS Flush) 5 ml UNSCH PRN IV FLUSH 09/12/17 09:15 (Zofran Inj) 4 mg UNSCH PRN IV PUSH 09/12/17 09:15 (Tylenol) 650 mg UNSCH PRN PO 09/12/17 09:15 (Benadryl) 25 mg UNSCH PRN PO 09/12/17 09:15 (Nitrostat Sl) 0.4 mg UNSCH PRN SL 09/12/17 09:15 (Catapres) 0.1 mg UNSCH PRN PO 09/12/17 09:15 (Epogen Inj) 4,000 units UNSCH PRN IV PUSH 09/12/17 09:15 (Gelfoam 12 Mm/7 Mm Top) 1 foam UNSCH PRN TOP 09/12/17 09:15 (Haldol Inj) 5 mg Q6H PRN IM 09/13/17 12:30 09/13/17 12:40 Vital Signs / I&O Vital Signs Date Time Temp Pulse Resp B/P (MAP) Pulse Ox O2 Delivery O2 Flow Rate FiO2 09/13/17 16:55 98.7 65 18 137/63 (87) 97 09/13/17 15:04 60 09/13/17 13:47 67 18 183/74 (110) 96 09/13/17 12:29 98.7 64 18 136/60 (85) 99 09/13/17 11:02 55 09/13/17 08:15 60 09/13/17 07:48 97 21 09/13/17 07:34 97.6 58 16 134/62 (86) 96 09/13/17 06:52 66 09/13/17 05:29 64 118/60 (79) 09/13/17 03:09 98.2 66 16 137/63 (87) 99 09/13/17 02:04 72 18 133/80 (97) 99 09/13/17 00:44 18 09/12/17 23:11 98.4 72 18 132/69 (90) 95 09/12/17 19:42 76 17 124/57 (79) 95 09/12/17 19:37 96 09/12/17 18:22 97.6 76 20 119/58 (78) 95 I/O 09/12/17 09/12/17 09/12/17 09/13/17 09/13/17 09/13/17 07:00 15:00 23:00 07:00 15:00 23:00 Intake Total 240 ml 480 ml Output Total 2500 ml Balance 240 ml -2500 ml 480 ml Intake Oral 240 ml 480 ml Output Hemodialysis 2500 ml # Voids 1 1 2 # Bowel Movements 1 Laboratory GENERAL: SKIN: Warm and dry. HEAD: Normocephalic. EYES: No scleral icterus. No injection or drainage. NECK: Supple, trachea midline. No JVD or lymphadenopathy. CARDIOVASCULAR: Regular rate and rhythm without murmurs, gallops, or rubs. RESPIRATORY: Breath sounds equal bilaterally. No accessory muscle use. GASTROINTESTINAL: Abdomen soft, non-tender, nondistended. MUSCULOSKELETAL: No cyanosis, or edema. BACK: Nontender without obvious deformity. No CVA tenderness. Laboratory Tests Test 09/12/17 17:40 09/13/17 09:03 White Blood Count 18.5 TH/MM3 15.0 TH/MM3 Red Blood Count 3.25 MIL/MM3 3.37 MIL/MM3 Hemoglobin 9.9 GM/DL 10.2 GM/DL Hematocrit 29.8 % 31.6 % Mean Corpuscular Volume 91.7 FL 93.7 FL Mean Corpuscular Hemoglobin 30.5 PG 30.4 PG Mean Corpuscular Hemoglobin Concent 33.2 % 32.4 % Red Cell Distribution Width 18.2 % 18.2 % Platelet Count 137 TH/MM3 139 TH/MM3 Mean Platelet Volume 9.2 FL 8.6 FL Neutrophils (%) (Auto) 97.9 % 98.0 % Lymphocytes (%) (Auto) 0.4 % 0.7 % Monocytes (%) (Auto) 1.5 % 1.1 % Eosinophils (%) (Auto) 0.0 % 0.0 % Basophils (%) (Auto) 0.2 % 0.2 % Neutrophils # (Auto) 18.1 TH/MM3 14.7 TH/MM3 Lymphocytes # (Auto) 0.1 TH/MM3 0.1 TH/MM3 Monocytes # (Auto) 0.3 TH/MM3 0.2 TH/MM3 Eosinophils # (Auto) 0.0 TH/MM3 0.0 TH/MM3 Basophils # (Auto) 0.0 TH/MM3 0.0 TH/MM3 CBC Comment DIFF FINAL DIFF FINAL Differential Comment Urine Color YELLOW Urine Turbidity CLEAR Urine pH 6.5 Urine Specific [place] 1.012 Urine Protein 100 mg/dL Urine Glucose (UA) 1000 mg/dL Urine Ketones NEG mg/dL Urine Occult Blood MOD Urine Nitrite NEG Urine Bilirubin NEG Urine Urobilinogen LESS THAN 2.0 MG/DL Urine Leukocyte Esterase NEG Urine RBC 30 /hpf Microscopic Urinalysis Comment CATH-CULT NOT IND Blood Urea Nitrogen 39 MG/DL 59 MG/DL Creatinine 3.75 MG/DL 4.66 MG/DL Random Glucose 217 MG/DL 240 MG/DL Total Protein 6.3 GM/DL Albumin 2.9 GM/DL Calcium Level 8.4 MG/DL 8.5 MG/DL Alkaline Phosphatase 93 U/L Aspartate Amino Transf (AST/SGOT) 11 U/L Alanine Aminotransferase (ALT/SGPT) 19 U/L Total Bilirubin 0.4 MG/DL Sodium Level 138 MEQ/L 135 MEQ/L Potassium Level 4.2 MEQ/L 4.7 MEQ/L Chloride Level 97 MEQ/L 98 MEQ/L Carbon Dioxide Level 29.1 MEQ/L 23.1 MEQ/L Anion Gap 12 MEQ/L 14 MEQ/L Estimat Glomerular Filtration Rate 12 ML/MIN 9 ML/MIN Ammonia 12 MCMOL/L Triglycerides Level 113 MG/DL Cholesterol Level 130 MG/DL LDL Cholesterol 61 MG/DL HDL Cholesterol 46.0 MG/DL Cholesterol/HDL Ratio 2.82 RATIO Assessment and Plan Problem List: (1) CAD (coronary artery disease) ICD Codes: I25.10 - Atherosclerotic heart disease of [place] coronary artery without angina pectoris (2) Chronic kidney disease ICD Codes: N18.9 - Chronic kidney disease, unspecified Status: Chronic (3) COPD (chronic obstructive pulmonary disease) ICD Codes: J44.9 - Chronic obstructive pulmonary disease, unspecified Status: Chronic (4) Atrial fibrillation ICD Codes: I48.91 - Unspecified atrial fibrillation Status: Acute (5) ESRD (end stage renal disease) ICD Codes: N18.6 - End stage renal disease Status: Chronic (6) DM (diabetes mellitus) ICD Codes: E11.9 - Type 2 diabetes mellitus without complications Status: Chronic (7) Aneurysm of basilar artery ICD Codes: I72.5 - Aneurysm of other precerebral arteries Status: Chronic Assessment and Plan 1.) CAD - non obstructive by cath jul 2017, continue aspirin, lopressor, ldl=61 off meds 2.) Afib - rate controlled, rec coumadin or noac due to chadsvasc score = 4 to lower risk of cva,, however, patient and daughter repeatedly refuse, continue aspirin 81 mg qd, lopressor, cardizem Problem Qualifiers (1) COPD (chronic obstructive pulmonary disease): Qualified Codes: J44.1 - Chronic obstructive pulmonary disease with (acute) exacerbation Anshul Gusman MD Sep 13, 2017 17:31
--- NOTE | 2017-09-13 19:00 | HHI.NPPN ---
Subjective History of Present Illness Patient is a 66-year-old white female with history of COPD, cigarette smoking, ESRD, came in with shortness of breath Additional Remarks Feels better hemodialysis was done yesterday Objective Data Data Vital Signs Date Time Temp Pulse Resp B/P (MAP) Pulse Ox O2 Delivery O2 Flow Rate FiO2 09/13/17 16:55 98.7 65 18 137/63 (87) 97 09/13/17 15:04 60 09/13/17 13:47 67 18 183/74 (110) 96 09/13/17 12:29 98.7 64 18 136/60 (85) 99 09/13/17 11:02 55 09/13/17 08:15 60 09/13/17 07:48 97 21 09/13/17 07:34 97.6 58 16 134/62 (86) 96 09/13/17 06:52 66 09/13/17 05:29 64 118/60 (79) 09/13/17 03:09 98.2 66 16 137/63 (87) 99 09/13/17 02:04 72 18 133/80 (97) 99 09/13/17 00:44 18 09/12/17 23:11 98.4 72 18 132/69 (90) 95 09/12/17 19:42 76 17 124/57 (79) 95 09/12/17 19:37 96 -: 09/13/17 0903 09/13/17 0903 Microbiology 09/12/17 Aerobic Blood Culture - Preliminary, Resulted NO GROWTH IN 1 DAY 09/12/17 Anaerobic Blood Culture - Preliminary, Resulted NO GROWTH IN 1 DAY 09/12/17 Aerobic Blood Culture - Preliminary, Resulted NO GROWTH IN 1 DAY 09/12/17 Anaerobic Blood Culture - Preliminary, Resulted NO GROWTH IN 1 DAY Physical Exam General Appearance: Well Developed Throat Throat Exam: Oral Mucosa [place] & Moist Neck Neck Exam: Neck Supple Pulmonary Resp Exam: Rhonchi, Decreased Bases Cardiology CV Exam: Regular, Normal Sinus Rhythm Gastrointestinal/Abdomen GI Exam: Soft, Non-Tender, Bowel Sounds Present Extremeties Extremities Exam: No Edema Neurologic Neuro Exam: Alert, Awake, Oriented Assessment/Plan Problem List: (1) ESRD (end stage renal disease) ICD Codes: N18.6 - End stage renal disease Status: Chronic Plan: Patient i is on hemodialysis 3 times a week, Saturday, and Saturdays Emphasized on she needs to quit smoking completely Continue with current antibiotic and COPD treatment (2) Pneumonia, bacterial ICD Codes: J15.9 - Unspecified bacterial pneumonia Status: Acute Plan: Patient is on Zithromax and steroids (3) COPD (chronic obstructive pulmonary disease) ICD Codes: J44.9 - Chronic obstructive pulmonary disease, unspecified Status: Chronic Plan: Steroids and nebulizer Problem Qualifiers (1) COPD (chronic obstructive pulmonary disease): Qualified Codes: J44.1 - Chronic obstructive pulmonary disease with (acute) exacerbation Oscar Jurado MD Sep 13, 2017 19:00
--- NOTE | 2017-09-13 20:09 | MB ---
cc: Noel Proctor MD, Dany A MD DATE: 09/13/2017 REASON FOR CONSULTATION: COPD exacerbation. HISTORY OF PRESENT ILLNESS: The patient is a 66-year-old female who is known to have history of COPD, who came to the hospital because of acute shortness of breath and congestion. She was diagnosed with pneumonia and COPD exacerbation. The patient is doing much better today. She denied any shortness of breath to me. She denies any significant coughing. PAST MEDICAL HISTORY: Reviewed. Positive for history of congestive heart failure, end-stage renal disease, atrial fibrillation and COPD. PAST SURGICAL HISTORY: Reviewed in detail. MEDICATIONS: All medications that she is on reviewed in detail. Note, the patient is a very poor historian. PHYSICAL EXAMINATION: VITAL SIGNS: Temperature 98.7, pulse 65, respiratory rate 18, blood pressure 137/63. She is satting 95% on room air. HEENT: Atraumatic, normocephalic. NECK: Trachea midline. LUNGS: Mild expiratory wheezing. HEART: Normal S1, S2. ABDOMEN: Soft. It is nontender. EXTREMITIES: No edema or cyanosis. NEUROLOGIC: Awake. Moves all extremities. LABORATORY DATA: Reviewed. WBC 15, hemoglobin 10.5, platelets 139. Today, her sodium 135, potassium 4.7, BUN is 59, creatinine 4.6. I reviewed her chest x-ray and it did show an area of consolidation of the left lung that has been stable compared to previous x-rays. ASSESSMENT AND PLAN: 1. Chronic obstructive pulmonary disease exacerbation. 2. ? pneumonia. 3. Congestive heart failure. 4. Chronic kidney disease. I do believe overall the patient is doing really well. I would like to recommend to stop the intravenous steroids. I would recommend to order prednisone 30 mg p.o. every day. Also, I would like to recommend to check a procalcitonin level. I am not sure she will need any antibiotics. I doubt she has pneumonia. She does not need any oxygen. I would recommend bronchodilators on as-needed basis. I will continue to follow up the patient with you. However, in my opinion, the patient is ready to go home in the morning. MD REJI De La Cruz// , 05:53 PM , 07:28 PM
[2017-09-13] MEDS: PANTOPRAZOLE SODIUM 40 MG VIAL IV PUSH SCH (20:44)
[2017-09-13] MEDS: AZITHROMYCIN INJ 500 MG in SODIUM CHLOR 0.9% 250 ML INJ 250 ML IV SCH (20:44)
[2017-09-14] VITALS (7 sets, daily range): BP systolic 118–179; BP diastolic 56–88; PULSE 60–76; RESP 16–18; TEMP 97.9–98.7; O2SAT 93–97
[2017-09-14] MEDS: DILTIAZEM HCL 30 MG TAB PO SCH ×4 (00:27→18:53)
[2017-09-14] MEDS: RESP: ALBUTEROL 2.5 MG/IPRATROPIUM 0.5 MG NEB (SCH) NEB ×4 (07:37→20:00)
[2017-09-14] MEDS: MEDIUM DOSE INSULIN NOVOLOG SUPPLEMENTAL SCALE SQ SCH ×4 (08:14→20:42)
[2017-09-14] MEDS: HEPARIN SODIUM - SQ 10,000 UNITS/ML VIAL SQ SCH ×2 (09:00→20:41)
[2017-09-14] MEDS: MIDODRINE 5 MG TAB PO SCH ×3 (09:00→18:57)
[2017-09-14] MEDS: VANCOMYCIN 25 MG/ML SOLN 100 ML BOTTLE PO SCH ×4 (09:00→22:54)
[2017-09-14] MEDS: METOPROLOL TARTRATE 25 MG TAB PO SCH ×2 (09:00→20:41)
[2017-09-14] MEDS: DOCUSATE SODIUM 50 MG/SENNA 8.6 MG TAB PO SCH ×2 (09:00→20:41)
[2017-09-14] MEDS: CALCIUM ACETATE 667 MG CAP PO SCH ×3 (09:30→18:52)
--- NOTE | 2017-09-14 10:55 | HHI.NPPN ---
Subjective History of Present Illness Patient is a 66-year-old white female with history of COPD, cigarette smoking, ESRD, came in with shortness of breath Additional Remarks Feels better on hemodialysis Objective Data Data Vital Signs Date Time Temp Pulse Resp B/P (MAP) Pulse Ox O2 Delivery O2 Flow Rate FiO2 09/14/17 07:44 98.3 69 18 120/60 (80) 95 09/14/17 03:45 97.9 60 17 118/60 (79) 95 09/13/17 23:29 97.9 54 17 117/60 (79) 96 09/13/17 20:03 96 09/13/17 18:26 60 09/13/17 16:55 98.7 65 18 137/63 (87) 97 09/13/17 15:04 60 09/13/17 13:47 67 18 183/74 (110) 96 09/13/17 12:29 98.7 64 18 136/60 (85) 99 09/13/17 11:02 55 -: 09/13/17 0903 09/13/17 0903 Physical Exam General Appearance: Well Developed Throat Throat Exam: Oral Mucosa [place] & Moist Neck Neck Exam: Neck Supple Pulmonary Resp Exam: Rhonchi, Decreased Bases Cardiology CV Exam: Regular, Normal Sinus Rhythm Gastrointestinal/Abdomen GI Exam: Soft, Non-Tender, Bowel Sounds Present Extremeties Extremities Exam: No Edema Neurologic Neuro Exam: Alert, Awake, Oriented Assessment/Plan Problem List: (1) ESRD (end stage renal disease) ICD Codes: N18.6 - End stage renal disease Status: Chronic Plan: Patient i is on hemodialysis 3 times a week, Saturday, and Saturdays Emphasized on she needs to quit smoking completely seen during dialysis UF 2 L tolerating it well Continue with current antibiotic and COPD treatment (2) Pneumonia, bacterial ICD Codes: J15.9 - Unspecified bacterial pneumonia Status: Acute Plan: Patient is on Zithromax and steroids (3) COPD (chronic obstructive pulmonary disease) ICD Codes: J44.9 - Chronic obstructive pulmonary disease, unspecified Status: Chronic Plan: Steroids and nebulizer Problem Qualifiers (1) COPD (chronic obstructive pulmonary disease): Qualified Codes: J44.1 - Chronic obstructive pulmonary disease with (acute) exacerbation Oscar Jurado MD Sep 14, 2017 10:55
--- NOTE | 2017-09-14 12:29 | PD.CARD.PN ---
Subjective Subjective Remarks alert in nad, congestion improved, wants to go home Objective Medications Current Medications Medications (Trade) Dose Ordered Sig/Carlos Route Start Time Stop Time Status Last Admin (Aspirin Chew) 81 mg DAILY PO 09/12/17 09:00 09/13/17 09:39 (Phoslo) 667 mg TIDPC PO 09/12/17 09:30 09/13/17 18:32 (Cardizem) 30 mg Q6HR PO 09/12/17 00:00 09/14/17 05:46 (PROzac) 20 mg DAILY PO 09/12/17 09:00 09/13/17 09:39 (Emla Cream) 1 applic TuThSa PRN TOPICAL 09/11/17 21:00 (Lopressor) 25 mg Q12HR PO 09/11/17 21:00 09/13/17 20:45 (Proamatine) 10 mg TID PO 09/12/17 09:00 09/13/17 18:33 (Roxicodone) 10 mg Q6HR PRN PO 09/11/17 21:00 09/13/17 13:51 (Duoneb Neb) 1 ampule QID NEB NEB 09/12/17 08:00 09/13/17 19:24 (Ativan) 0.5 mg Q8H PRN PO 09/11/17 21:00 (Protonix Inj) 40 mg Q24H IV PUSH 09/11/17 21:00 09/13/17 20:44 Azithromycin 500 mg/Sodium Chloride 250 ml @ 250 mls/hr Q24H IV 09/12/17 20:00 09/13/17 20:44 (Vancomycin 25 Mg/ml Liq) 250 mg QID PO 09/12/17 09:00 09/13/17 20:45 (Wellbutrin Sr) 150 mg DAILY PO 09/12/17 09:00 09/13/17 09:40 Patient Own Medication PT OWN MED: MUCI... Q12H PRN PO 09/11/17 21:45 Future Hold (D50w (Vial) Inj) 50 ml UNSCH PRN IV PUSH 09/11/17 23:30 (Glucagon Inj) 1 mg UNSCH PRN OTHER 09/11/17 23:30 (NovoLOG SUPPLEMENTAL SCALE) 1 ACHS SLIDING SCALE SQ 09/11/17 23:25 09/14/17 08:14 (NS Flush) 2 ml UNSCH PRN IV FLUSH 09/12/17 07:45 (NS Flush) 2 ml BID IV FLUSH 09/12/17 09:00 09/13/17 20:44 (Tylenol) 650 mg Q4H PRN PO 09/12/17 07:45 (Zofran Inj) 4 mg Q6H PRN IVP 09/12/17 07:45 (Ambien) 5 mg HS PRN PO 09/12/17 21:00 (Heparin Inj) 5,000 units Q12H SQ 09/12/17 09:00 09/13/17 20:45 (Narcan Inj) 0.4 mg UNSCH PRN IV PUSH 09/12/17 07:45 (Marixa-Colace) 1 tab BID PO 09/12/17 09:00 09/13/17 20:45 (Milk Of Magnesia Liq) 30 ml Q12H PRN PO 09/12/17 07:45 (Senokot) 17.2 mg Q12H PRN PO 09/12/17 07:45 (Dulcolax Supp) 10 mg DAILY PRN RECTAL 09/12/17 07:45 (Lactulose Liq) 30 ml DAILY PRN PO 09/12/17 07:45 Sodium Chloride 1,000 ml @ 0 mls/hr Q0M PRN OTHER 09/12/17 09:07 09/14/17 10:38 (Heparin Inj) 8,000 units UNSCH PRN IV FLUSH 09/12/17 09:15 Sodium Chloride 1,000 ml @ 200 mls/hr Q5H PRN IV 09/12/17 09:07 Sodium Chloride 1,000 ml @ 0 mls/hr Q0M PRN OTHER 09/12/17 09:07 (Mannitol Inj) 12.5 gm UNSCH PRN IV 09/12/17 09:15 Albumin Human 100 ml @ 60 mls/hr UNSCH PRN IV 09/12/17 09:15 (NS Flush) 5 ml UNSCH PRN IV FLUSH 09/12/17 09:15 (Zofran Inj) 4 mg UNSCH PRN IV PUSH 09/12/17 09:15 (Tylenol) 650 mg UNSCH PRN PO 3/22/18 09:15 (Benadryl) 25 mg UNSCH PRN PO 09/12/17 09:15 (Nitrostat Sl) 0.4 mg UNSCH PRN SL 09/12/17 09:15 (Catapres) 0.1 mg UNSCH PRN PO 09/12/17 09:15 (Epogen Inj) 4,000 units UNSCH PRN IV PUSH 09/12/17 09:15 09/14/17 10:38 (Gelfoam 12 Mm/7 Mm Top) 1 foam UNSCH PRN TOP 09/12/17 09:15 09/14/17 10:39 (Haldol Inj) 5 mg Q6H PRN IM 09/13/17 12:30 09/13/17 12:40 (Deltasone) 30 mg DAILY PO 09/14/17 09:00 Vital Signs / I&O Vital Signs Date Time Temp Pulse Resp B/P (MAP) Pulse Ox O2 Delivery O2 Flow Rate FiO2 09/14/17 12:19 98.4 67 18 120/59 (79) 97 09/14/17 07:44 98.3 69 18 120/60 (80) 95 09/14/17 03:45 97.9 60 17 118/60 (79) 95 09/13/17 23:29 97.9 54 17 117/60 (79) 96 09/13/17 20:03 96 09/13/17 18:26 60 09/13/17 16:55 98.7 65 18 137/63 (87) 97 09/13/17 15:04 60 09/13/17 13:47 67 18 183/74 (110) 96 09/13/17 12:29 98.7 64 18 136/60 (85) 99 I/O 09/13/17 09/13/17 09/13/17 09/14/17 09/14/17 09/14/17 07:00 15:00 23:00 07:00 15:00 23:00 Intake Total 480 ml 250 ml Balance 480 ml 250 ml Intake Oral 480 ml IV Total 250 ml # Voids 2 Physical Exam GENERAL: SKIN: Warm and dry. HEAD: Normocephalic. EYES: No scleral icterus. No injection or drainage. NECK: Supple, trachea midline. No JVD or lymphadenopathy. CARDIOVASCULAR: Regular rate and rhythm without murmurs, gallops, or rubs. RESPIRATORY: Breath sounds equal bilaterally. No accessory muscle use. GASTROINTESTINAL: Abdomen soft, non-tender, nondistended. MUSCULOSKELETAL: No cyanosis, or edema. BACK: Nontender without obvious deformity. No CVA tenderness. Assessment and Plan Problem List: (1) CAD (coronary artery disease) ICD Codes: I25.10 - Atherosclerotic heart disease of [place] coronary artery without angina pectoris (2) Chronic kidney disease ICD Codes: N18.9 - Chronic kidney disease, unspecified Status: Chronic (3) COPD (chronic obstructive pulmonary disease) ICD Codes: J44.9 - Chronic obstructive pulmonary disease, unspecified Status: Chronic (4) Atrial fibrillation ICD Codes: I48.91 - Unspecified atrial fibrillation Status: Acute (5) ESRD (end stage renal disease) ICD Codes: N18.6 - End stage renal disease Status: Chronic (6) DM (diabetes mellitus) ICD Codes: E11.9 - Type 2 diabetes mellitus without complications Status: Chronic (7) Aneurysm of basilar artery ICD Codes: I72.5 - Aneurysm of other precerebral arteries Status: Chronic (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 Assessment and Plan 1.) CAD - non obstructive by cath jul 2017, continue aspirin, lopressor, ldl=61 off meds; ef=60%, patient advised to dc tobacco 2.) Afib - rate controlled, rec coumadin or noac due to chadsvasc score = 4 to lower risk of cva,, however, patient and daughter repeatedly refuse, continue aspirin 81 mg qd, lopressor, cardizem 3.) patient advised to f/u with or clint after discharge, ok to discharge from cv standpoint Problem Qualifiers (1) COPD (chronic obstructive pulmonary disease): Qualified Codes: J44.1 - Chronic obstructive pulmonary disease with (acute) exacerbation Anshul Gusman MD Sep 14, 2017 12:29
--- NOTE | 2017-09-14 12:35 | HHI.PR ---
Subjective Remarks better no sob no coughing s/p dialysis today Objective Vital Signs Date Time Temp Pulse Resp B/P (MAP) Pulse Ox O2 Delivery O2 Flow Rate FiO2 09/14/17 12:19 98.4 67 18 120/59 (79) 97 09/14/17 07:44 98.3 69 18 120/60 (80) 95 09/14/17 03:45 97.9 60 17 118/60 (79) 95 09/13/17 23:29 97.9 54 17 117/60 (79) 96 09/13/17 20:03 96 09/13/17 18:26 60 09/13/17 16:55 98.7 65 18 137/63 (87) 97 09/13/17 15:04 60 09/13/17 13:47 67 18 183/74 (110) 96 I/O 09/13/17 09/13/17 09/13/17 09/14/17 09/14/17 09/14/17 07:00 15:00 23:00 07:00 15:00 23:00 Intake Total 480 ml 250 ml Balance 480 ml 250 ml Intake Oral 480 ml IV Total 250 ml # Voids 2 Result Diagram: 09/13/17 0903 09/13/17 0903 Objective Remarks PHYSICAL EXAMINATION: HEENT: Atraumatic, normocephalic. NECK: Trachea midline. LUNGS: clear HEART: Normal S1, S2. ABDOMEN: Soft. It is nontender. EXTREMITIES: No edema or cyanosis. NEUROLOGIC: Awake. Moves all extremities. Assessment and Plan Discussed Condition With 1. Chronic obstructive pulmonary disease exacerbation. 2. ? pneumonia. 3. Congestive heart failure. 4. Chronic kidney disease. I do believe overall the patient is doing really well. cont prednisone 30 mg p.o. every day. She does not need any oxygen. I would recommend bronchodilators on as-needed basis. I will continue to follow up the patient with you. However, in my opinion, the patient is ready to go home in the morning. Noel Proctor MD Sep 14, 2017 12:35
[2017-09-14] MEDS: SODIUM CHLORIDE 0.9% FLUSH 10 ML FLUSH IV FLUSH SCH ×2 (12:40→20:41)
[2017-09-14] MEDS: ASPIRIN 81 MG CHEW TAB PO SCH (12:40)
[2017-09-14] MEDS: predniSONE 10 MG TAB PO SCH (12:41)
[2017-09-14] MEDS: FLUoxetine HCL 20 MG CAP PO SCH (12:41)
[2017-09-14] MEDS: buPROPion HCL 150 MG SUSTAINED RELEASE TAB PO SCH (12:41)
--- NOTE | 2017-09-14 14:45 | HHI.DS ---
cc: Alli Watkins MD Discharge Summary Admission Date Sep 11, 2017 at 14:56 pm Discharge Date: Sep 14, 2017 Admitting Diagnosis COPD exacerbation, leukocytosis, diarrhea (1) Pneumonia ICD Code: J18.9 - Pneumonia, unspecified organism Diagnosis: Principal (2) COPD (chronic obstructive pulmonary disease) ICD Code: J44.9 - Chronic obstructive pulmonary disease, unspecified Diagnosis: Principal Status: Chronic (3) Atrial fibrillation ICD Code: I48.91 - Unspecified atrial fibrillation Diagnosis: Secondary Status: Acute Procedures None. Brief History - From Admission From Dr. Espinoza's H&P Upon Admission: 66 Y CF. RECENT ADMIT WITH HIP FX, PNA, NEUTROPENIA, AF. DISCHARGED TO [facility]. PT CONTINUED TO SMOKE HEAVILY THERE. SHE DEVELOPED WORSENING RONCHI AND SPUTUM OVER THE LAST TWO DAYS. IT APPEARED SHE WAS IN DISTRESS AND SHE WAS THUS TRANSFERRED TO [facility] ER. PT FOUND WITH SEVERE CONGESTION, AND PNA. PT GIVEN IV ABX AND SEPSIS WORKUP BEGUN. LARGE DIARRHEAL STOOL IN ER. SENT FOR C DIF. I WAS THEN CALLED FOR ADMISSION. CBC/BMP: 09/13/17 0903 09/13/17 0903 Significant Findings Laboratory Tests Test 09/11/17 16:25 09/12/17 17:40 09/13/17 09:03 White Blood Count 18.9 TH/MM3 (4.0-11.0) 18.5 TH/MM3 (4.0-11.0) 15.0 TH/MM3 (4.0-11.0) Red Blood Count 3.39 MIL/MM3 (4.00-5.30) 3.25 MIL/MM3 (4.00-5.30) 3.37 MIL/MM3 (4.00-5.30) Hemoglobin 10.3 GM/DL (11.6-15.3) 9.9 GM/DL (11.6-15.3) 10.2 GM/DL (11.6-15.3) Hematocrit 31.6 % (35.0-46.0) 29.8 % (35.0-46.0) 31.6 % (35.0-46.0) Red Cell Distribution Width 18.1 % (11.6-17.2) 18.2 % (11.6-17.2) 18.2 % (11.6-17.2) Platelet Count 125 TH/MM3 (150-450) 137 TH/MM3 (150-450) 139 TH/MM3 (150-450) Neutrophils (%) (Auto) 92.6 % (16.0-70.0) 97.9 % (16.0-70.0) 98.0 % (16.0-70.0) Lymphocytes (%) (Auto) 1.1 % (9.0-44.0) 0.4 % (9.0-44.0) 0.7 % (9.0-44.0) Neutrophils # (Auto) 17.5 TH/MM3 (1.8-7.7) 18.1 TH/MM3 (1.8-7.7) 14.7 TH/MM3 (1.8-7.7) Lymphocytes # (Auto) 0.2 TH/MM3 (1.0-4.8) 0.1 TH/MM3 (1.0-4.8) 0.1 TH/MM3 (1.0-4.8) Monocytes # (Auto) 1.1 TH/MM3 (0-0.9) Blood Urea Nitrogen 57 MG/DL (7-18) 39 MG/DL (7-18) 59 MG/DL (7-18) Creatinine 4.61 MG/DL (0.50-1.00) 3.75 MG/DL (0.50-1.00) 4.66 MG/DL (0.50-1.00) Random Glucose 304 MG/DL (74-106) 217 MG/DL (74-106) 240 MG/DL (74-106) Total Protein 6.2 GM/DL (6.4-8.2) 6.3 GM/DL (6.4-8.2) Albumin 3.0 GM/DL (3.4-5.0) 2.9 GM/DL (3.4-5.0) Alkaline Phosphatase 143 U/L (45-117) Aspartate Amino Transf (AST/SGOT) 5 U/L (15-37) 11 U/L (15-37) Sodium Level 134 MEQ/L (136-145) 135 MEQ/L (136-145) Estimat Glomerular Filtration Rate 9 ML/MIN (>89) 12 ML/MIN (>89) 9 ML/MIN (>89) B-Type Natriuretic Peptide 380 PG/ML (0-100) Urine Protein 100 mg/dL (NEG-TRACE) Urine Glucose (UA) 1000 mg/dL (NEG) Urine Occult Blood MOD (NEG) Urine RBC 30 /hpf (0-3) Calcium Level 8.4 MG/DL (8.5-10.1) Chloride Level 97 MEQ/L (98-107) Imaging Last Impressions Chest X-Ray 09/11/17 1542 Signed Impressions: Service Date/Time: Monday, September 11, 2017 16:08 - CONCLUSION: 1. There is an area of consolidation in the left lung. This has been present on several prior exams and is relatively stable. This probably represents an area of scarring and fibrosis. Shaheed Sheets MD PE at Discharge GENERAL: Well-nourished, well-developed pleasantly confused elderly female patient in [facility]. SKIN: Warm and dry. No rash. HEENT: Normocephalic. Atraumatic.Pupils equal and round. Mucous membranes pink and moist. CARDIOVASCULAR: Regular rate and rhythm. 2/6 systolic murmur noted. RESPIRATORY: No accessory muscle use. Minimal scattered expiratory rhonchi that clears with cough, otherwise clear, no crackles/wheezing. Breath sounds equal bilaterally. GASTROINTESTINAL: Abdomen soft, non-tender, nondistended. Normoactive bowel sounds x4. MUSCULOSKELETAL: No obvious deformities. Extremities without clubbing, cyanosis , or edema. NEUROLOGICAL: Awake and alert. No obvious cranial nerve deficits. Motor grossly within normal limits. Normal speech. PSYCHIATRIC: Appropriate mood and affect; insight and judgment limited. Pt update on day of discharge The patient is seen after dialysis. She is awake, alert, oriented to person, [facility], [facility], and [facility]. She denies any chest pain, cough, shortness of breath, abdominal pain, or diarrhea. Discussed with nursing, no acute events. Vital signs stable. She has been stable on room air. Hospital Course 66-year-old female with history of ESRD on HD, CHF, recent admission with hip fracture, pneumonia, and discharge to [facility]. While at SNF, patient developed worsening rhonchi and sputum with respiratory distress therefore sent back to [facility]. Chest x-ray showed pneumonia. She was started on antibiotics with azithromycin. She also had a large diarrhea bowel movement while in the ER, concern for C. difficile with recent antibiotic use, however no stool study was collected and patient had no further diarrhea throughout 4 day admission. Cardiology was consulted for her atrial fibrillation, seen by Dr. Gusman who recommended Coumadin or NOAC due to chads vasc score 4 and risk for CVA, however the patient and daughter repeatedly refused any further anticoagulation therefore Dr. Gusman recommended to continue aspirin 81 mg daily, Lopressor, and Cardizem. Dr. Gusman cleared for discharge. She was also seen by pulmonology Dr. Proctor, recommended to continue steroids with prednisone 30 mg daily, and cleared for discharge. Patient received dialysis while in the hospital. On the day of discharge, the patient denied any cough, shortness of breath, chest pain, fevers or chills. Her O2 sat was stable on room air. She is stable for discharge back to [facility]. Pt Condition on Discharge: Stable Discharge Disposition: Discharge to SNF Discharge Time: > 30 minutes Discharge Instructions DIET: Follow Instructions for: Dialysis Diet Speech Therapy-Diet Recommends: Mechanical Soft Activities you can perform: Regular-No Restrictions Follow up Referrals: Cardiology - 1 Week with Anshul Gusman MD PCP Follow-up - 1 Week with Alli Watkins MD Pulmonology - 1 Week with Noel Proctor MD New Medications: Prednisone (Prednisone) 10 Mg Tab 30 MG PO DAILY for COPD for 5 Days, #15 TAB Continued Medications: Acetaminophen (Tylenol) 325 Mg Tab 650 MG PO Q4H PRN for PAIN/TEMP 100F OR ABOVE, TAB 0 Refills Albuterol 18 GM Inh (Ventolin Hfa 18 GM Inh) 90 Mcg/Act Aer 2 PUFF INH Q4HR PRN for SHORTNESS OF BREATH, #1 INHALER 0 Refills Alprazolam (Xanax) 1 Mg Tab 1 MG PO BID PRN for ANXIETY for 60 Days, #120 TAB 5 Refills Aspirin (Aspirin) 81 Mg Chew 81 MG PO DAILY, TAB 0 Refills Atorvastatin (Lipitor) 10 Mg Tab 10 MG PO HS for HLD for 30 Days, #30 TAB 11 Refills B-Complex W/ C & Folic Acid (Dialyvite 800) 1 Tab 1 TAB PO DAILY for Nutritional Supplement Bupropion HCl ER 24 HR (Bupropion HCl ER 24 HR) 150 Mg Tab 150 MG PO DAILY for Control Depression, TAB 0 Refills Calcium Acetate (Phosphate Bin (Calcium Acetate) 667 Mg Cap 667 MG PO TIDPC for dialysis, #90 CAP 3 Refills Cholecalciferol (Vitamin D3) 2,000 Unit Cap 2000 UNITS PO DAILY for Nutritional Supplement, #30 BOTTLE 0 Refills Clonidine (Catapres) 0.1 Mg Tab 0.1 MG PO UNSCH PRN for for BP > 180/100 X 2 readings for 30 Days, #90 TAB 11 Refills Diltiazem (Cardizem) 30 Mg Tab 30 MG PO Q6HR for AF for 30 Days, #120 TAB 11 Refills Docusate Sodium (Colace) 100 Mg Capsule 200 MG PO HS for Bowel Management, #30 CAP 0 Refills Fluoxetine (Fluoxetine) 20 Mg Tab 20 MG PO DAILY, #30 TAB 0 Refills Fluticasone-Vilanterol Inh (Breo Ellipta Inh) 100-25 Mcg/Act Inh 1 PUFF INH DAILY, #1 INHALER 0 Refills Use daily at the same time. Rinse mouth after each use. Gabapentin (Gabapentin) 100 Mg Cap 100 MG PO BID, #60 CAP 0 Refills Guaifenesin Liq (Guaifenesin Liq) 100 mg/5 ML Soln 200 MG PO Q4H PRN for COUGH, #1 BOTTLE 0 Refills Levofloxacin (Levaquin) 750 Mg Tablet 750 MG PO EVERY OTHER DAY for Infection, #3 TAB (This prescription has been renewed) Lidocaine-Prilocaine Topical (Lidopril Topical) 2.5-2.5 % Cream 1 APPLIC TOPICAL TuThSa PRN for [place] skin, #1 TUBE 0 Refills Apply to shunt site daily every Saturday, and Saturday 1hr prior to dialysis Magnesium Hydroxide Liq (Milk of Magnesia Liq) 400 Mg/5 Ml Susp 30 ML PO HS PRN for IF NO BM X 3 DAYS, #1 BOTTLE 0 Refills Melatonin (Melatonin Cr) 3 Mg Tab Metoprolol Tartrate (Metoprolol Tartrate) 25 Mg Tab 25 MG PO Q12HR for Heart, #60 TAB 5 Refills Hold if systolic BP < 110 or Heart rate < 65 Midodrine (Midodrine) 10 Mg Tab 10 MG PO TID for Control Low Blood Pressure, #90 TAB 0 Refills Nitroglycerin SL (Nitroglycerin SL) 0.4 Mg Subl 0.4 MG SL DIRECTED PRN for CHEST PAIN, #100 TAB.SL 0 Refills ONE TABLET UNDER THE TONGUE NEEDED FOR CHEST PAIN, MAY REPEAT EVERY FIVE MINUTES FOR A TOTAL OF 3 DOSES OR CALL 911 IF NO RELIEF Ondansetron (Zofran) 4 Mg Tab 4 MG PO Q6HR PRN for NAUSEA OR VOMITING, TAB 0 Refills Oxycodone (Oxycodone) 10 Mg Tab 10 MG PO Q6HR PRN for PAIN SCALE 6 TO 10, #120 TAB 0 Refills Oxygen tank (Oxygen tank) 1 Ea Tank 2 LITER EDUARDO.CANULA HS for HYPOXEMIA PREVENTION, #2 CYLINDER Oxygen Concentrator Portable Gaseous 2 L/min via Nasal Cannula Continuous For 99 months Tiotropium Inh (Spiriva Handihaler) 18 Mcg Cap 18 MCG INH DAILY for COPD for 30 Days, CAP 0 Refills 1 capsule = 18 mcg Discontinued Medications: Albuterol 18 GM Inh (Ventolin Hfa 18 GM Inh) 90 Mcg/Act Aer 1 PUFF INH Q4H PRN for SHORTNESS OF BREATH, #1 INHALER 0 Refills Dextromethorphan-Guaifenesin (Mucinex DM) 30-600 Mg Tab 2 TAB PO Q12HR PRN for CHEST CONGESTION AND/OR COUGH, TAB 0 Refills Prednisone (Prednisone) 20 Mg Tab 20 MG PO BID for Cough for 30 Days, #60 TAB 11 Refills Arabella Dickson PA-C Sep 14, 2017 2:45 pm
[2017-09-14] MEDS ORDERED: PRED10 PO (14:48)
[2017-09-14] MEDS ORDERED: LEVA750T9 PO (14:48)
[2017-09-14 19:04] LABS: AUTOMATED NEUTROPHIL # 16.8 TH/MM3 (1.8-7.7); BASOPHIL % 0.1 % (0.0-2.0); HEMATOCRIT 30.7 % (35.0-46.0); HEMOGLOBIN 10.4 GM/DL (11.6-15.3); LYMPH % 0.4 % (9.0-44.0); LYMPHOCYTE # 0.1 TH/MM3 (1.0-4.8); MEAN CELL VOLUME 93.1 FL (80.0-100.0); MEAN CORPUSCULAR HEMOGLOBIN 31.6 PG (27.0-34.0); MEAN PLATELET VOLUME 8.7 FL (7.0-11.0); MONO % 1.6 % (0.0-8.0); MONOCYTE # 0.3 TH/MM3 (0-0.9); NEUT % 97.9 % (16.0-70.0); PLATELET COUNT 164 TH/MM3 (150-450); RED CELL DISTRIBUTION WIDTH 18.1 % (11.6-17.2); WHITE BLOOD COUNT 17.1 TH/MM3 (4.0-11.0)
[2017-09-14 19:33] LABS: BICARBONATE 30.9 MEQ/L (21.0-32.0); CALCIUM 8.9 MG/DL (8.5-10.1); CREATININE 3.65 MG/DL (0.50-1.00)
[2017-09-14] MEDS: AZITHROMYCIN INJ 500 MG in SODIUM CHLOR 0.9% 250 ML INJ 250 ML IV SCH (20:40)
[2017-09-14] MEDS: PANTOPRAZOLE SODIUM 40 MG VIAL IV PUSH SCH (20:41)
[2017-09-15 00:51] VITALS: BP 122/53; PULSE 68; RESP 16; TEMP 98.6; O2SAT 95
[2017-09-15 03:53] VITALS: BP 149/58; PULSE 68; RESP 16; TEMP 98.8; O2SAT 95
[2017-09-15] MEDS: DILTIAZEM HCL 30 MG TAB PO SCH ×3 (06:00→12:28)
[2017-09-15 07:25] VITALS: O2SAT 97
[2017-09-15] MEDS: RESP: ALBUTEROL 2.5 MG/IPRATROPIUM 0.5 MG NEB (SCH) NEB ×2 (07:25→12:00)
[2017-09-15 09:02] VITALS: BP 137/60; PULSE 80; RESP 18; TEMP 98.7; O2SAT 97
[2017-09-15] MEDS: buPROPion HCL 150 MG SUSTAINED RELEASE TAB PO SCH (09:05)
[2017-09-15] MEDS: DOCUSATE SODIUM 50 MG/SENNA 8.6 MG TAB PO SCH (09:05)
[2017-09-15] MEDS: METOPROLOL TARTRATE 25 MG TAB PO SCH (09:05)
[2017-09-15] MEDS: predniSONE 10 MG TAB PO SCH (09:05)
[2017-09-15] MEDS: FLUoxetine HCL 20 MG CAP PO SCH (09:06)
[2017-09-15] MEDS: VANCOMYCIN 25 MG/ML SOLN 100 ML BOTTLE PO SCH (09:06)
[2017-09-15] MEDS: ASPIRIN 81 MG CHEW TAB PO SCH (09:06)
[2017-09-15] MEDS: CALCIUM ACETATE 667 MG CAP PO SCH ×2 (09:06→13:55)
[2017-09-15] MEDS: SODIUM CHLORIDE 0.9% FLUSH 10 ML FLUSH IV FLUSH SCH (09:06)
[2017-09-15] MEDS: MIDODRINE 5 MG TAB PO SCH ×2 (09:06→13:54)
[2017-09-15] MEDS: MEDIUM DOSE INSULIN NOVOLOG SUPPLEMENTAL SCALE SQ SCH ×2 (09:15→12:28)
[2017-09-15] MEDS: HEPARIN SODIUM - SQ 10,000 UNITS/ML VIAL SQ SCH (09:15)
--- NOTE | 2017-09-15 09:20 | HHI.PR ---
Subjective Remarks better no sob no coughing Objective Vital Signs Date Time Temp Pulse Resp B/P (MAP) Pulse Ox O2 Delivery O2 Flow Rate FiO2 09/15/17 09:02 98.7 80 18 137/60 (85) 97 09/15/17 07:25 97 21 09/15/17 03:53 98.8 68 16 149/58 (88) 95 09/15/17 00:51 98.6 68 16 122/53 (76) 95 09/14/17 21:31 98.4 73 16 132/56 (81) 94 09/14/17 20:11 94 21 09/14/17 18:51 76 145/88 (107) 09/14/17 15:46 98.7 66 18 179/71 (107) 93 09/14/17 12:19 98.4 67 18 120/59 (79) 97 I/O 09/14/17 09/14/17 09/14/17 09/15/17 09/15/17 09/15/17 07:00 15:00 23:00 07:00 15:00 23:00 Output Total 2350 ml Balance -2350 ml Output Urine Total 350 ml Hemodialysis 2000 ml Result Diagram: 09/14/17 1739 09/14/17 1739 Objective Remarks PHYSICAL EXAMINATION: HEENT: Atraumatic, normocephalic. pos for oral thrush NECK: Trachea midline. LUNGS: clear HEART: Normal S1, S2. ABDOMEN: Soft. It is nontender. EXTREMITIES: No edema or cyanosis. NEUROLOGIC: Awake. Moves all extremities. Assessment and Plan Assessment and Plan copd exacerbation ckd oral thrush better weaning course of oral steroids nystatin swish andd swallow ok to go home or rehab from my part will need outpxt follow up Noel Proctor MD Sep 15, 2017 09:20
--- NOTE | 2017-09-15 09:22 | HHI.PR ---
Subjective Remarks patient seen on 09/14/17 better no sob no coughing s/p HD Objective Vital Signs Date Time Temp Pulse Resp B/P (MAP) Pulse Ox O2 Delivery O2 Flow Rate FiO2 09/15/17 09:02 98.7 80 18 137/60 (85) 97 09/15/17 07:25 97 21 09/15/17 03:53 98.8 68 16 149/58 (88) 95 09/15/17 00:51 98.6 68 16 122/53 (76) 95 09/14/17 21:31 98.4 73 16 132/56 (81) 94 09/14/17 20:11 94 21 09/14/17 18:51 76 145/88 (107) 09/14/17 15:46 98.7 66 18 179/71 (107) 93 09/14/17 12:19 98.4 67 18 120/59 (79) 97 I/O 09/14/17 09/14/17 09/14/17 09/15/17 09/15/17 09/15/17 07:00 15:00 23:00 07:00 15:00 23:00 Output Total 2350 ml Balance -2350 ml Output Urine Total 350 ml Hemodialysis 2000 ml Result Diagram: 09/14/17 1739 09/14/17 1739 Objective Remarks PHYSICAL EXAMINATION: HEENT: Atraumatic, normocephalic. NECK: Trachea midline. LUNGS: clear HEART: Normal S1, S2. ABDOMEN: Soft. It is nontender. EXTREMITIES: No edema or cyanosis. NEUROLOGIC: Awake. Moves all extremities. Assessment and Plan Assessment and Plan copd exacerbation ckd better oral steroids duonebs prn .. again clinical encounter done on Noel Proctor MD Sep 15, 2017 09:22
[2017-09-15 11:31] VITALS: BP 148/66; PULSE 72; RESP 16; TEMP 98.5; O2SAT 96
--- NOTE | 2017-09-15 13:53 | HHI.PR ---
Subjective Remarks Follow up for COPD, dementia. The patient reports feeling well today. She is oriented to [facility], and [facility]. She states her breathing is better. Denies any cough, chest pain, or shortness of breath. She agrees to discharge back to [facility]. She is tolerating oral intake. Vital signs stable. O2 sat stable on room air. Objective Vitals Vital Signs Date Time Temp Pulse Resp B/P (MAP) Pulse Ox O2 Delivery O2 Flow Rate FiO2 09/15/17 11:31 98.5 72 16 148/66 (93) 96 09/15/17 09:02 98.7 80 18 137/60 (85) 97 09/15/17 07:25 97 21 09/15/17 03:53 98.8 68 16 149/58 (88) 95 09/15/17 00:51 98.6 68 16 122/53 (76) 95 09/14/17 21:31 98.4 73 16 132/56 (81) 94 09/14/17 20:11 94 21 09/14/17 18:51 76 145/88 (107) 09/14/17 15:46 98.7 66 18 179/71 (107) 93 I/O 09/14/17 09/14/17 09/14/17 09/15/17 09/15/17 09/15/17 07:00 15:00 23:00 07:00 15:00 23:00 Output Total 2350 ml Balance -2350 ml Output Urine Total 350 ml Hemodialysis 2000 ml Result Diagram: 09/14/17 1739 09/14/17 1739 Imaging Last Impressions Chest X-Ray 09/11/17 1547 Signed Impressions: Service Date/Time: Monday, September 11, 2017 16:08 - CONCLUSION: 1. There is an area of consolidation in the left lung. This has been present on several prior exams and is relatively stable. This probably represents an area of scarring and fibrosis. Shaheed Sheets MD Objective Remarks GENERAL: Well-nourished, well-developed pleasantly confused elderly female patient in [facility]. SKIN: Warm and dry. No rash. HEENT: Normocephalic. Atraumatic.Pupils equal and round. Mucous membranes pink and moist. CARDIOVASCULAR: Regular rate and rhythm. 2/6 systolic murmur noted. RESPIRATORY: No accessory muscle use. Clear to auscultation today. Breath sounds equal bilaterally. GASTROINTESTINAL: Abdomen soft, non-tender, nondistended. Normoactive bowel sounds x4. MUSCULOSKELETAL: No obvious deformities. Extremities without clubbing, cyanosis , or edema. NEUROLOGICAL: Awake and alert. No obvious cranial nerve deficits. Motor grossly within normal limits. Normal speech. PSYCHIATRIC: Appropriate mood and affect; insight and judgment limited. Procedures None. Medications and IVs Current Medications Medications (Trade) Dose Ordered Sig/Carlos Route Start Time Stop Time Status Last Admin (Aspirin Chew) 81 mg DAILY PO 09/12/17 09:00 09/15/17 09:06 (Phoslo) 667 mg TIDPC PO 09/12/17 09:30 09/15/17 09:06 (Cardizem) 30 mg Q6HR PO 09/12/17 00:00 09/15/17 12:28 (PROzac) 20 mg DAILY PO 09/12/17 09:00 09/15/17 09:06 (Emla Cream) 1 applic TuThSa PRN TOPICAL 09/11/17 21:00 (Lopressor) 25 mg Q12HR PO 09/11/17 21:00 09/15/17 09:05 (Proamatine) 10 mg TID PO 09/12/17 09:00 09/15/17 09:06 (Roxicodone) 10 mg Q6HR PRN PO 09/11/17 21:00 09/13/17 13:51 (Duoneb Neb) 1 ampule QID NEB NEB 09/12/17 08:00 09/15/17 12:00 (Ativan) 0.5 mg Q8H PRN PO 09/11/17 21:00 (Protonix Inj) 40 mg Q24H IV PUSH 09/11/17 21:00 09/14/17 20:41 Azithromycin 500 mg/Sodium Chloride 250 ml @ 250 mls/hr Q24H IV 09/12/17 20:00 09/14/17 20:40 (Vancomycin 25 Mg/ml Liq) 250 mg QID PO 09/12/17 09:00 09/15/17 09:06 (Wellbutrin Sr) 150 mg DAILY PO 09/12/17 09:00 09/15/17 09:05 Patient Own Medication PT OWN MED: MUCI... Q12H PRN PO 09/11/17 21:45 Future Hold (D50w (Vial) Inj) 50 ml UNSCH PRN IV PUSH 09/11/17 23:30 (Glucagon Inj) 1 mg UNSCH PRN OTHER 09/11/17 23:30 (NovoLOG SUPPLEMENTAL SCALE) 1 ACHS SLIDING SCALE SQ 09/11/17 23:25 09/15/17 12:28 (NS Flush) 2 ml UNSCH PRN IV FLUSH 09/12/17 07:45 (NS Flush) 2 ml BID IV FLUSH 09/12/17 09:00 09/15/17 09:06 (Tylenol) 650 mg Q4H PRN PO 09/12/17 07:45 (Zofran Inj) 4 mg Q6H PRN IVP 09/12/17 07:45 (Ambien) 5 mg HS PRN PO 09/12/17 21:00 09/14/17 20:41 (Heparin Inj) 5,000 units Q12H SQ 09/12/17 09:00 09/15/17 09:15 (Narcan Inj) 0.4 mg UNSCH PRN IV PUSH 09/12/17 07:45 (Marixa-Colace) 1 tab BID PO 09/12/17 09:00 09/15/17 09:05 (Milk Of Magnesia Liq) 30 ml Q12H PRN PO 09/12/17 07:45 (Senokot) 17.2 mg Q12H PRN PO 09/12/17 07:45 (Dulcolax Supp) 10 mg DAILY PRN RECTAL 09/12/17 07:45 (Lactulose Liq) 30 ml DAILY PRN PO 09/12/17 07:45 Sodium Chloride 1,000 ml @ 0 mls/hr Q0M PRN OTHER 09/12/17 09:07 09/14/17 10:38 (Heparin Inj) 8,000 units UNSCH PRN IV FLUSH 09/12/17 09:15 Sodium Chloride 1,000 ml @ 200 mls/hr Q5H PRN IV 09/12/17 09:07 Sodium Chloride 1,000 ml @ 0 mls/hr Q0M PRN OTHER 09/12/17 09:07 (Mannitol Inj) 12.5 gm UNSCH PRN IV 09/12/17 09:15 Albumin Human 100 ml @ 60 mls/hr UNSCH PRN IV 09/12/17 09:15 (NS Flush) 5 ml UNSCH PRN IV FLUSH 09/12/17 09:15 (Zofran Inj) 4 mg UNSCH PRN IV PUSH 09/12/17 09:15 (Tylenol) 650 mg UNSCH PRN PO 09/12/17 09:15 (Benadryl) 25 mg UNSCH PRN PO 09/12/17 09:15 (Nitrostat Sl) 0.4 mg UNSCH PRN SL 09/12/17 09:15 (Catapres) 0.1 mg UNSCH PRN PO 09/12/17 09:15 (Epogen Inj) 4,000 units UNSCH PRN IV PUSH 09/12/17 09:15 09/14/17 10:38 (Gelfoam 12 Mm/7 Mm Top) 1 foam UNSCH PRN TOP 09/12/17 09:15 09/14/17 10:39 (Haldol Inj) 5 mg Q6H PRN IM 09/13/17 12:30 09/13/17 12:40 (Deltasone) 30 mg DAILY PO 09/14/17 09:00 09/15/17 09:05 A/P Problem List: (1) Pneumonia ICD Code: J18.9 - Pneumonia, unspecified organism (2) COPD (chronic obstructive pulmonary disease) ICD Code: J44.9 - Chronic obstructive pulmonary disease, unspecified Status: Chronic (3) Atrial fibrillation ICD Code: I48.91 - Unspecified atrial fibrillation Status: Acute Assessment and Plan 66-year-old female with history of ESRD on HD, CHF, recent admission with hip fracture, pneumonia, and discharge to [facility]. While at SNF, patient developed worsening rhonchi and sputum with respiratory distress therefore sent back to [facility]. COPD Exacerbation/Recent Pneumonia: Chest x-ray reviewed, showed consolidation of left lung that is stable. -given antibiotics with azithromycin, transitioned to levaquin renally dosed at discharge -continue duonebs qid -continue home medications -consulted pulmonology Dr. Proctor, recommended to continue steroids with prednisone 30 mg daily, and cleared for discharge. -O2 sat stable on room air Atrial Fibrillation: chronic -consulted cardiology, seen by Dr. Gusman who recommended Coumadin or NOAC due to chads vasc score 4 and risk for CVA, however the patient and daughter repeatedly refused any further anticoagulation therefore recommended to continue aspirin 81 mg daily, Lopressor, and Cardizem. -Dr. Gusman cleared for discharge. Diarrhea: large diarrhea bowel movement while in the ER, concern for C. difficile with recent antibiotic use -vancomycin po qid was started empirically however no stool study was collected and patient had no further diarrhea throughout admission -discontinue vanco -monitor BMs ESRD on HD: chronic -consulted nephrology -dialysis continued All other medical conditions stable, continued home meds as appropriate. DVT Prophylaxis: heparin sq Discharge Planning The patient is stable for discharge back to [facility]. Case management assisting with discharge planning. See discharge summary from 09/14. Problem Qualifiers (1) COPD (chronic obstructive pulmonary disease): Qualified Codes: J44.1 - Chronic obstructive pulmonary disease with (acute) exacerbation Arabella Dickson PA-C Sep 15, 2017 13:53
[2017-09-15] MEDS ORDERED: OXYC-395 PO (14:56)
[2017-09-15] MEDS ORDERED: XANA1TAB2 PO (14:56)
--- NOTE | 2017-09-15 15:47 | PD.CARD.PN ---
Subjective Subjective Remarks alert in nad, congestion improved, wants to go home Objective Medications Current Medications Medications (Trade) Dose Ordered Sig/Carlos Route Start Time Stop Time Status Last Admin (Aspirin Chew) 81 mg DAILY PO 09/12/17 09:00 09/15/17 09:06 (Phoslo) 667 mg TIDPC PO 09/12/17 09:30 09/15/17 13:55 (Cardizem) 30 mg Q6HR PO 09/12/17 00:00 09/15/17 12:28 (PROzac) 20 mg DAILY PO 09/12/17 09:00 09/15/17 09:06 (Emla Cream) 1 applic TuThSa PRN TOPICAL 09/11/17 21:00 (Lopressor) 25 mg Q12HR PO 09/11/17 21:00 09/15/17 09:05 (Proamatine) 10 mg TID PO 09/12/17 09:00 09/15/17 13:54 (Roxicodone) 10 mg Q6HR PRN PO 09/11/17 21:00 09/13/17 13:51 (Ativan) 0.5 mg Q8H PRN PO 09/11/17 21:00 (Wellbutrin Sr) 150 mg DAILY PO 09/12/17 09:00 09/15/17 09:05 Patient Own Medication PT OWN MED: MUCI... Q12H PRN PO 09/11/17 21:45 Future Hold (D50w (Vial) Inj) 50 ml UNSCH PRN IV PUSH 09/11/17 23:30 (Glucagon Inj) 1 mg UNSCH PRN OTHER 09/11/17 23:30 (NovoLOG SUPPLEMENTAL SCALE) 1 ACHS SLIDING SCALE SQ 09/11/17 23:25 09/15/17 12:28 (NS Flush) 2 ml UNSCH PRN IV FLUSH 09/12/17 07:45 (NS Flush) 2 ml BID IV FLUSH 09/12/17 09:00 09/15/17 09:06 (Tylenol) 650 mg Q4H PRN PO 09/12/17 07:45 (Zofran Inj) 4 mg Q6H PRN IVP 09/12/17 07:45 (Ambien) 5 mg HS PRN PO 09/12/17 21:00 09/14/17 20:41 (Heparin Inj) 5,000 units Q12H SQ 09/12/17 09:00 09/15/17 09:15 (Narcan Inj) 0.4 mg UNSCH PRN IV PUSH 09/12/17 07:45 (Marixa-Colace) 1 tab BID PO 09/12/17 09:00 09/15/17 09:05 (Milk Of Magnesia Liq) 30 ml Q12H PRN PO 09/12/17 07:45 (Senokot) 17.2 mg Q12H PRN PO 09/12/17 07:45 (Dulcolax Supp) 10 mg DAILY PRN RECTAL 09/12/17 07:45 (Lactulose Liq) 30 ml DAILY PRN PO 09/12/17 07:45 Sodium Chloride 1,000 ml @ 0 mls/hr Q0M PRN OTHER 09/12/17 09:07 09/14/17 10:38 (Heparin Inj) 8,000 units UNSCH PRN IV FLUSH 09/12/17 09:15 Sodium Chloride 1,000 ml @ 200 mls/hr Q5H PRN IV 09/12/17 09:07 Sodium Chloride 1,000 ml @ 0 mls/hr Q0M PRN OTHER 09/12/17 09:07 (Mannitol Inj) 12.5 gm UNSCH PRN IV 09/12/17 09:15 Albumin Human 100 ml @ 60 mls/hr UNSCH PRN IV 09/12/17 09:15 (NS Flush) 5 ml UNSCH PRN IV FLUSH 09/12/17 09:15 (Zofran Inj) 4 mg UNSCH PRN IV PUSH 09/12/17 09:15 (Tylenol) 650 mg UNSCH PRN PO 09/12/17 09:15 (Benadryl) 25 mg UNSCH PRN PO 09/12/17 09:15 (Nitrostat Sl) 0.4 mg UNSCH PRN SL 09/12/17 09:15 (Catapres) 0.1 mg UNSCH PRN PO 09/12/17 09:15 (Epogen Inj) 4,000 units UNSCH PRN IV PUSH 09/12/17 09:15 09/14/17 10:38 (Gelfoam 12 Mm/7 Mm Top) 1 foam UNSCH PRN TOP 09/12/17 09:15 09/14/17 10:39 (Haldol Inj) 5 mg Q6H PRN IM 09/13/17 12:30 09/13/17 12:40 (Deltasone) 30 mg DAILY PO 09/14/17 09:00 09/15/17 09:05 (Levaquin) 750 mg Q48H PO 09/16/17 20:00 (Duoneb Neb) 1 ampule QID NEB NEB 09/15/17 16:00 09/15/17 15:40 (Protonix) 40 mg DAILY PO 09/16/17 09:00 Vital Signs / I&O Vital Signs Date Time Temp Pulse Resp B/P (MAP) Pulse Ox O2 Delivery O2 Flow Rate FiO2 09/15/17 11:31 98.5 72 16 148/66 (93) 96 09/15/17 09:02 98.7 80 18 137/60 (85) 97 09/15/17 07:25 97 21 09/15/17 03:53 98.8 68 16 149/58 (88) 95 09/15/17 00:51 98.6 68 16 122/53 (76) 95 09/14/17 21:31 98.4 73 16 132/56 (81) 94 09/14/17 20:11 94 21 09/14/17 18:51 76 145/88 (107) I/O 09/14/17 09/14/17 09/14/17 09/15/17 09/15/17 09/15/17 07:00 15:00 23:00 07:00 15:00 23:00 Output Total 2350 ml Balance -2350 ml Output Urine Total 350 ml Hemodialysis 2000 ml Physical Exam GENERAL: SKIN: Warm and dry. HEAD: Normocephalic. EYES: No scleral icterus. No injection or drainage. NECK: Supple, trachea midline. No JVD or lymphadenopathy. CARDIOVASCULAR: Regular rate and rhythm without murmurs, gallops, or rubs. RESPIRATORY: Breath sounds equal bilaterally. No accessory muscle use. GASTROINTESTINAL: Abdomen soft, non-tender, nondistended. MUSCULOSKELETAL: No cyanosis, or edema. BACK: Nontender without obvious deformity. No CVA tenderness. Laboratory Laboratory Tests Test 09/14/17 17:39 White Blood Count 17.1 TH/MM3 Red Blood Count 3.30 MIL/MM3 Hemoglobin 10.4 GM/DL Hematocrit 30.7 % Mean Corpuscular Volume 93.1 FL Mean Corpuscular Hemoglobin 31.6 PG Mean Corpuscular Hemoglobin Concent 34.0 % Red Cell Distribution Width 18.1 % Platelet Count 164 TH/MM3 Mean Platelet Volume 8.7 FL Neutrophils (%) (Auto) 97.9 % Lymphocytes (%) (Auto) 0.4 % Monocytes (%) (Auto) 1.6 % Eosinophils (%) (Auto) 0.0 % Basophils (%) (Auto) 0.1 % Neutrophils # (Auto) 16.8 TH/MM3 Lymphocytes # (Auto) 0.1 TH/MM3 Monocytes # (Auto) 0.3 TH/MM3 Eosinophils # (Auto) 0.0 TH/MM3 Basophils # (Auto) 0.0 TH/MM3 CBC Comment DIFF FINAL Differential Comment Blood Urea Nitrogen 40 MG/DL Creatinine 3.65 MG/DL Random Glucose 179 MG/DL Calcium Level 8.9 MG/DL Sodium Level 137 MEQ/L Potassium Level 4.0 MEQ/L Chloride Level 95 MEQ/L Carbon Dioxide Level 30.9 MEQ/L Anion Gap 11 MEQ/L Estimat Glomerular Filtration Rate 12 ML/MIN Assessment and Plan Problem List: (1) CAD (coronary artery disease) ICD Codes: I25.10 - Atherosclerotic heart disease of zuni coronary artery without angina pectoris (2) Chronic kidney disease ICD Codes: N18.9 - Chronic kidney disease, unspecified Status: Chronic (3) COPD (chronic obstructive pulmonary disease) ICD Codes: J44.9 - Chronic obstructive pulmonary disease, unspecified Status: Chronic (4) Atrial fibrillation ICD Codes: I48.91 - Unspecified atrial fibrillation Status: Acute (5) ESRD (end stage renal disease) ICD Codes: N18.6 - End stage renal disease Status: Chronic (6) DM (diabetes mellitus) ICD Codes: E11.9 - Type 2 diabetes mellitus without complications Status: Chronic (7) Aneurysm of basilar artery ICD Codes: I72.5 - Aneurysm of other precerebral arteries Status: Chronic (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 Assessment and Plan 1.) CAD - non obstructive by cath jul 2017, continue aspirin, lopressor, ldl=61 off meds; ef=60%, patient advised to dc tobacco 2.) Afib - rate controlled, rec coumadin or noac due to chadsvasc score = 4 to lower risk of cva,, however, patient and daughter repeatedly refuse, continue aspirin 81 mg qd, lopressor, cardizem 3.) patient advised to f/u with me clint after discharge, ok to discharge from cv standpoint Problem Qualifiers (1) COPD (chronic obstructive pulmonary disease): Qualified Codes: J44.1 - Chronic obstructive pulmonary disease with (acute) exacerbation Anshul Gusman MD Sep 15, 2017 15:47
[2017-09-15 15:51] VITALS: BP 164/69; PULSE 76; RESP 17; TEMP 98.3; O2SAT 94
[2017-09-15] MEDS ORDERED: RESP: ALBUTEROL 2.5 MG/IPRATROPIUM 0.5 MG NEB (SCH) NEB (16:00)
[2017-09-16] MEDS ORDERED: PANTOPRAZOLE SOD 40 MG DELAYED RELEASE TAB PO SCH (09:00)
[2017-09-16] MEDS ORDERED: LEVOFLOXACIN 750 MG TAB PO SCH (20:00)
== END 2017-09-15 18:47 | disposition home or self-care (01) | DRG 190 ==
LOC: NEDAMB 14:56 → NEDA 18:14 → NEPFCDU 19:41 → OBSVTOIN 09-13 10:20
PROVIDERS: ADMIT Family Medicine; ATTEND Family Medicine
PROC: 5A1D70Z Performance of Urinary Filtration, Intermittent, Less than 6 Hours Per Day (ICD-10-PCS; principal; 2017-09-12)
DX: J44.1 Chronic obstructive pulmonary disease with (acute) exacerbation (principal); N18.6 End stage renal disease; N17.9 Acute kidney failure, unspecified; J15.9 Unspecified bacterial pneumonia; I50.9 Heart failure, unspecified; B37.0 Candidal stomatitis; N25.81 Secondary hyperparathyroidism of renal origin; I48.91 Unspecified atrial fibrillation; F17.210 Nicotine dependence, cigarettes, uncomplicated; Z85.118 Personal history of other malignant neoplasm of bronchus and lung; Z92.3 Personal history of irradiation; Z90.2 Acquired absence of lung [part of]; Z87.01 Personal history of pneumonia (recurrent); M19.90 Unspecified osteoarthritis, unspecified site; I25.10 Atherosclerotic heart disease of native coronary artery without angina pectoris; F32.9 Major depressive disorder, single episode, unspecified; Z79.52 Long term (current) use of systemic steroids; R26.2 Difficulty in walking, not elsewhere classified; K59.03 Drug induced constipation
CPT/HCPCS: 71045; 76937; 80048; 80053; 80061; 81001; 82140; 82948; 83605; 83690; 83735; 83880; 84443; 85025; 85610; 85730; 87040; 90935; 93005; 94640; 94664; 96365; 96366; 96372; 96374; 96375; 96376; C9113; G0257; G0378; G8987-GO; G8987-GP; G8988-GO; G8988-GP; G8996-GN; G8997-GN; G8998-GN; J0456; J0696; J1630; J1644; J1815; J2930; J7030; J7050; J7512; Q4081

== ENCOUNTER 2017-09-30 06:31 | Emergency (ER) | payer MEDICARE, OTHER ==
[~2017-09-30] VITALS: Ht 165.1 cm; Wt 59.0 kg
[~2017-09-30 06:31] MED LIST changes: -HUMIBIDDM PO; +MELA3TAB23 PO; +PRED10 PO; -PRED20 PO
[2017-09-30 06:35] VITALS: BP 143/65; PULSE 63; RESP 16; TEMP 98; O2SAT 99
--- NOTE | 2017-09-30 07:22 | PD ---
HPI Chief Complaint: Fall Time Seen by Provider: 06:59 Travel History International Travel<30 days: No Contact w/Intl Traveler<30days: No Traveled to known affect area: No History of Present Illness HPI 66-year-old female complains of headache, facial pain. Patient fell this morning while trying to get into a wheelchair. Patient denies loss of consciousness. Patient complains of aching headache frontal headache. Patient denies any visual change. Patient complains of right-sided facial pain. Patient denies any neck pain. Patient denied any chest pain or shortness of breath. Patient denies abdominal pain. Patient denies any extremity pain. Patient denies any extremity injury. Patient denies any focal weakness or numbness to the extremity. Patient denies any back pain. Patient has history of end-stage renal disease on dialysis Saturday and Saturday. Patient states that she has a productive cough for the past 2 days. PFSH Past Medical History Hx Anticoagulant Therapy: Yes Arthritis: Yes Asthma: No Anxiety: Yes Depression: Yes Heart Rhythm Problems: Yes ("SKIPS BEATS") Cancer: Yes (lung s/p lobectomy and XRT ) Cardiac Catheterization: Yes Cardiovascular Problems: Yes (CAD) High Cholesterol: Yes Chemotherapy: No Chest Pain: Yes Congestive Heart Failure: Yes COPD: Yes Cerebrovascular Accident: No Coronary Artery Disease: No Diabetes: Yes Patient Takes Glucophage: No Diminished Hearing: No Endocrine: Yes Gastrointestinal Disorders: Yes (CONSTIPATION, colitis ) GERD: Yes Genitourinary: Yes (BLOOD IN URINE ) Hepatitis: Yes (PREVIOUS FOOD BORNE HEPATITIS INFECTION PER CAREGIVER) Hiatal Hernia: Yes Hypertension: Yes (NOW HYPOTENSION) Immune Disorder: No Implanted Vascular Access Dvce: Yes (LUE) Kidney Stones: No Medical other: Yes (left arm fistula ) Musculoskeletal: Yes (OA) Neurologic: Yes (BRAIN ANEURYSM) Psychiatric: Yes Reproductive: No Respiratory: Yes (END STAGE EMPHYSEMA) Immunizations Current: Yes Migraines: No Myocardial Infarction: Yes (AGE 50) Pneumonia: Yes Radiation Therapy: Yes Renal Failure: Yes (T, TH, SAT dialysis) Seizures: No Sleep Apnea: No Thyroid Disease: No Ulcer: No : 3 Para: 3 Miscarriage: 0 : 0 Tubal Ligation: Yes Past Surgical History Abdominal Surgery: Yes (cholecystectomy) AICD: No Arteriovenous Shunt: Yes Body Medical Devices: brain artery stent capped, fitsula l arm Cardiac Surgery: Yes (cardiac cath) Cholecystectomy: Yes Ear Surgery: No Endocrine Surgery: No Eye Surgery: No Gynecologic Surgery: Yes Insulin Pump: No Joint Replacement: Yes (R FEMUR REPAIR) Neurologic Surgery: Yes (brain anuerysm with stent (capped)) Oral Surgery: No Pacemaker: No Thoracic Surgery: Yes (WEDGE RESECTION FOR SQUAMOUS CELL CARCINOMA) Other Surgery: Yes (lobectomy, brain aneuysm clipp, tube ligation, right femur ro) Social History Alcohol Use: No Tobacco Use: Yes (1 PPD) Substance Use: No Allergies-Medications (Allergen,Severity, Reaction): Coded Allergies: morphine (Verified Allergy, Severe, RASH, 09/30/17) Sulfa (Sulfonamide Antibiotics) (Verified Allergy, Unknown, 09/30/17) ciprofloxacin (Verified Adverse Reaction, Intermediate, NAUSEAS, 09/30/17) codeine (Verified Adverse Reaction, Intermediate, Vertigo, 09/30/17) Reported Meds & Prescriptions Reported Meds & Active Scripts Active Zithromax (Azithromycin) 250 Mg Tab 250 Mg PO DAILY Oxycodone (Oxycodone HCl) 10 Mg Tab 10 Mg PO Q8HR PRN Xanax (Alprazolam) 1 Mg Tab 0.5 Mg PO BID PRN 60 Days Cardizem (Diltiazem HCl) 30 Mg Tab 30 Mg PO Q6HR 30 Days Catapres (Clonidine) 0.1 Mg Tab 0.1 Mg PO UNSCH PRN 30 Days Lipitor (Atorvastatin Calcium) 10 Mg Tab 10 Mg PO HS 30 Days Metoprolol Tartrate 25 Mg Tab 25 Mg PO Q12HR Hold if systolic BP < 110 or Heart rate < 65 Vitamin D3 (Cholecalciferol) 2,000 Unit Cap 2,000 Units PO DAILY Fluoxetine (Fluoxetine HCl) 20 Mg Tab 20 Mg PO DAILY Midodrine 10 Mg Tab 10 Mg PO TID Calcium Acetate (Calcium Acetate (Phosphate Bin) 667 Mg Cap 667 Mg PO TIDPC Spiriva Handihaler (Tiotropium Inh) 18 Mcg Cap 18 Mcg INH DAILY 30 Days 1 capsule = 18 mcg Reported Melatonin Cr (Melatonin) 3 Mg Tab Colace (Docusate Sodium) 100 Mg Capsule 200 Mg PO HS Guaifenesin Liq (Guaifenesin) 100 mg/5 ML Soln 200 Mg PO Q4H PRN Breo Ellipta Inh (Fluticasone/Vilanterol) 100-25 Mcg/Act Inh 1 Puff INH DAILY Use daily at the same time. Rinse mouth after each use. Tylenol (Acetaminophen) 325 Mg Tab 650 Mg PO Q4H PRN Milk of Magnesia Liq (Magnesium Hydroxide) 400 Mg/5 Ml Susp 30 Ml PO HS PRN Nitroglycerin SL (Nitroglycerin) 0.4 Mg Subl 0.4 Mg SL DIRECTED PRN ONE TABLET UNDER THE TONGUE NEEDED FOR CHEST PAIN, MAY REPEAT EVERY FIVE MINUTES FOR A TOTAL OF 3 DOSES OR CALL 911 IF NO RELIEF Gabapentin 100 Mg Cap 300 Mg PO BID Bupropion HCl ER 24 HR (Bupropion HCl) 150 Mg Tab 150 Mg PO DAILY Lidopril Topical (Lidocaine-Prilocaine Topical) 2.5-2.5 % Cream 1 Applic TOPICAL TUTHSA PRN Apply to shunt site daily every Saturday, and Saturday 1hr prior to dialysis Zofran (Ondansetron HCl) 4 Mg Tab 4 Mg PO Q6HR PRN Dialyvite 800 (B-Complex W/ C & Folic Acid) 1 Tab 1 Tab PO DAILY Ventolin Hfa 18 GM Inh (Albuterol Sulfate) 90 Mcg/Act Aer 2 Puff INH Q4HR PRN Aspirin 81 Mg Chew 81 Mg PO DAILY Oxygen tank (Oxygen) 1 Ea Tank 2 Liter [id number].[id number] Pixels HS Oxygen Concentrator Portable Gaseous 2 L/min via Nasal Cannula Continuous For 99 months Review of Systems General / Constitutional: No: Fever Eyes: No: Visual changes HENT: Positive: Headaches Cardiovascular: No: Chest Pain or Discomfort Respiratory: No: Shortness of Breath Gastrointestinal: No: Abdominal Pain Genitourinary: No: Dysuria Musculoskeletal: No: Pain Skin: No Rash Neurologic: No: Weakness Psychiatric: No: Depression Endocrine: No: Polydipsia Hematologic/Lymphatic: No: Easy Bruising Physical Exam Narrative GENERAL: Well-nourished, well-developed patient. SKIN: Focused skin assessment warm/dry. HEAD: Normocephalic. EYES: No scleral icterus. No injection or drainage. Mild sub-conjunctival hemorrhage right eye. Pupils 3 mm equal sluggish reactive. Patient has a 1.5 cm laceration right upper eyelid. NECK: Supple, trachea midline. No JVD or lymphadenopathy. CARDIOVASCULAR: Regular rate and rhythm without murmurs, gallops, or rubs. RESPIRATORY: Breath sounds equal bilaterally. No accessory muscle use. GASTROINTESTINAL: Abdomen soft, non-tender, nondistended. MUSCULOSKELETAL: No cyanosis, or edema. BACK: Nontender without obvious deformity. No CVA tenderness. Neurologic exam: Patient is awake oriented to place and person. Patient moves all extremity well. No obvious focal neurological deficit. Data Data Last Documented VS Vital Signs Date Time Temp Pulse Resp B/P (MAP) Pulse Ox O2 Delivery O2 Flow Rate FiO2 09/30/17 06:35 98.0 63 16 143/65 (91) 99 Orders Orders Electrocardiogram (09/30/17 07:15) Complete Blood Count With Diff (09/30/17 07:15) Basic Metabolic Panel (Bmp) (09/30/17 07:15) Prothrombin Time / Inr (Pt) (09/30/17 07:15) Act Partial Throm Time (Ptt) (09/30/17 07:15) Magnesium (Mg) (09/30/17 07:15) Phosphorus (Po4) (09/30/17 07:15) Chest, Single Ap (09/30/17 07:15) Ct Brain W/O Iv Contrast(Rout) (09/30/17 07:15) Iv Access Insert/Monitor (09/30/17 07:15) Ecg Monitoring (09/30/17 07:15) Oximetry (09/30/17 07:15) Ct Cerv Spine W/O Contrast (09/30/17 07:15) Ct Facial Bones W/O Iv Cont (09/30/17 07:15) Tetanus/Diphtheria Tox Adult (Tetanus/Di (09/30/17 07:30) Azithromycin (Zithromax) (09/30/17 10:00) Ed Discharge Order (09/30/17 09:56) Labs Laboratory Tests Test 09/30/17 07:50 White Blood Count 4.4 TH/MM3 Red Blood Count 3.53 MIL/MM3 Hemoglobin 10.5 GM/DL Hematocrit 32.9 % Mean Corpuscular Volume 93.1 FL Mean Corpuscular Hemoglobin 29.6 PG Mean Corpuscular Hemoglobin Concent 31.8 % Red Cell Distribution Width 17.3 % Platelet Count 327 TH/MM3 Mean Platelet Volume 7.8 FL Neutrophils (%) (Auto) 67.6 % Lymphocytes (%) (Auto) 9.2 % Monocytes (%) (Auto) 22.8 % Eosinophils (%) (Auto) 0.1 % Basophils (%) (Auto) 0.3 % Neutrophils # (Auto) 3.0 TH/MM3 Lymphocytes # (Auto) 0.4 TH/MM3 Monocytes # (Auto) 1.0 TH/MM3 Eosinophils # (Auto) 0.0 TH/MM3 Basophils # (Auto) 0.0 TH/MM3 CBC Comment DIFF FINAL Differential Comment Prothrombin Time 10.1 SEC Prothromb Time International Ratio 1.0 RATIO Activated Partial Thromboplast Time 24.7 SEC Blood Urea Nitrogen 28 MG/DL Creatinine 4.58 MG/DL Random Glucose 72 MG/DL Calcium Level 9.2 MG/DL Phosphorus Level 3.6 MG/DL Magnesium Level 2.2 MG/DL Sodium Level 138 MEQ/L Potassium Level 5.1 MEQ/L Chloride Level 105 MEQ/L Carbon Dioxide Level 22.1 MEQ/L Anion Gap 11 MEQ/L Estimat Glomerular Filtration Rate 10 ML/MIN MDM Medical Decision Making Medical Screen Exam Complete: Yes Emergency Medical Condition: Yes Interpretation(s) Last Impressions Head CT 09/30/17714 Signed Impressions: Service Date/Time: Saturday, September 30, 2017 08:02 - CONCLUSION: Fracture infraorbital rim on the right opacification of right extra sinus. Intracranial contents unremarkable. Blayne Sheets MD FACR Chest X-Ray 09/30/17714 Signed Impressions: Service Date/Time: Saturday, September 30, 2017 07:47 - CONCLUSION: Increasing pulmonary vascular congestion. Left lower lobe atelectasis versus pneumonia. Adam Winters MD Cervical Spine CT 09/30/17714 Signed Impressions: Service Date/Time: Saturday, September 30, 2017 08:02 - CONCLUSION: Reversal of the normal cervical lordosis moderate to severe degenerative changes moderate spinal stenosis C4-C5 and C5-C6. Worse at C5-C6. Blayne Sheets MD FACR 9:26 AM. CBC WBC 4.4. Hemoglobin 10.5 hematocrit 32.9. BUN 28. Creatinine 4.58. GFR of 10 Differential Diagnosis Differential diagnosis including laceration, contusion, skull fracture, intracranial hemorrhage. Narrative Course 66-year-old female with head injury, facial injury. Status post fall. Zithromax 250 mg p.o. given. Procedures Procedure Narrative Saline wash. Dermabond applied to the right upper eyelid laceration. Diagnosis Primary Impression: Orbital floor fracture Qualified Codes: S02.31XA - Fracture of orbital floor, right side, initial encounter for closed fracture Additional Impressions: Closed head injury Qualified Codes: S09.90XA - Unspecified injury of head, initial encounter Eyelid laceration, right Qualified Codes: S01.111A - Laceration without foreign body of right eyelid and periocular area, initial encounter Bronchitis Patient Instructions: General Instructions Additional Instructions: Zithromax 250 mg daily for 5 days. Keep the wound clean and dry for 10 days. Head trauma instructions given. Follow-up with personal physician. Follow-up with maxillofacial surgeon. Med/Other Pt SpecificInfo: Prescription(s) given Scripts Azithromycin (Zithromax) 250 Mg Tab 250 MG PO DAILY for Infection, #7 TAB 0 Refills Prov: Hill Chen MD 09/30/17 Disposition: 01 DISCHARGE HOME Condition: Stable Hill Chen MD Sep 30, 2017 07:22
[2017-09-30] MEDS ORDERED: TETANUS/DIPHTHERIA TOXOID ADULT 0.5 ML VIAL IM ONE (07:30)
[2017-09-30 07:59] LABS: BASOPHIL % 0.3 % (0.0-2.0); EOSINOPHIL % 0.1 % (0.0-4.0); HEMATOCRIT 32.9 % (35.0-46.0); HEMOGLOBIN 10.5 GM/DL (11.6-15.3); LYMPH % 9.2 % (9.0-44.0); LYMPHOCYTE # 0.4 TH/MM3 (1.0-4.8); MEAN CELL VOLUME 93.1 FL (80.0-100.0); MEAN CORPUSCULAR HEMOGLOBIN 29.6 PG (27.0-34.0); MEAN CORPUSCULAR HGB CONC 31.8 % (32.0-36.0); MEAN PLATELET VOLUME 7.8 FL (7.0-11.0); MONO % 22.8 % (0.0-8.0); NEUT % 67.6 % (16.0-70.0); PLATELET COUNT 327 TH/MM3 (150-450); RED BLOOD COUNT 3.53 MIL/MM3 (4.00-5.30); RED CELL DISTRIBUTION WIDTH 17.3 % (11.6-17.2); WHITE BLOOD COUNT 4.4 TH/MM3 (4.0-11.0)
--- NOTE | 2017-09-30 08:06 | RADRPT ---
EXAM DATE/TIME: 09/30/2017 07:47 [facility] COMPARISON: CHEST SINGLE AP, September 11, 2017, 16:08. INDICATIONS : Cough. MEDICAL HISTORY : Myocardial infarction. Chronic obstructive pulmonary disease. Emphysema. Carcinoma, lung. SURGICAL HISTORY : Lobectomy ENCOUNTER: Initial ACUITY: 1 day PAIN SCORE: 0/10 LOCATION: Bilateral chest FINDINGS: The cardiac silhouette is enlarged in transverse diameter. There is left lower lobe atelectasis versu s pneumonia. There is prominence of the central pulmonary vasculature with indistinct vascular margin s compatible with vascular congestion but no evidence of overt failure. A small left sided effusion i s present. CONCLUSION: Increasing pulmonary vascular congestion. Left lower lobe atelectasis versus pneumonia. Adam Winters MD on September 30, 2017 at 8:02 Board Certified Radiologist. This report was verified electronically.
[2017-09-30 08:10] LABS: PROTHROMBIN TIME - PATIENT 10.1 SEC (9.8-11.6)
[2017-09-30 08:15] LABS: BICARBONATE 22.1 MEQ/L (21.0-32.0); CALCIUM 9.2 MG/DL (8.5-10.1); CREATININE 4.58 MG/DL (0.50-1.00); MAGNESIUM 2.2 MG/DL (1.5-2.5)
[2017-09-30 08:16] LABS: PHOSPHORUS 3.6 MG/DL (2.5-4.9)
--- NOTE | 2017-09-30 08:35 | RADRPT ---
EXAM DATE/TIME: 09/30/2017 08:02 [facility] COMPARISON: CT BRAIN W/O CONTRAST, August 24, 2017, 13:57. INDICATIONS : Trauma, fall this morning, headache and right face pain RADIATION DOSE: 35.11 CTDIvol (mGy) MEDICAL HISTORY : Cardiovascular disease. Congestive heart failure. Diabetes mellitus type 2.Renal disease, anerusym, l bernard cancer SURGICAL HISTORY : Tubal ligation. Lobectomy, anerusym clip ENCOUNTER: Initial ACUITY: 1 day PAIN SCALE: 5/10 LOCATION: cranial TECHNIQUE: Multiple contiguous axial images were obtained of the head. Using automated exposure control and adj ustment of the mA and/or kV according to patient size, radiation dose was kept as low as reasonably a chievable to obtain optimal diagnostic quality images. DICOM format image data is available electro nically for review and comparison. FINDINGS: Status post aneurysm coiling with extensive artifact. Mild central and cortical atrophy with dilatation of ventricular and sulcal spaces. There is no pare nchymal hemorrhage, acute infarction or mass lesion. Extensive artifact is present the posterior fos sa. Moderate as are calcifications. Fracture of the infraorbital rim on the right right opacification the right maxillary sinus. Somatic arch and lateral rim are intact. CONCLUSION: Fracture infraorbital rim on the right opacification of right extra sinus. Intracranial contents unremarkable. Blayne Sheets MD FACR on September 30, 2017 at 8:31 Board Certified Radiologist. This report was verified electronically.
--- NOTE | 2017-09-30 08:48 | RADRPT ---
EXAM DATE/TIME: 09/30/2017 08:02 [facility] COMPARISON: No previous studies available for comparison. INDICATIONS : Trauma, fall this moring, headache, right facial pain RADIATION DOSE: 21.01 CTDIvol (mGy) MEDICAL HISTORY : Cardiovascular disease. Congestive heart failure. Diabetes mellitus type 2.Renal disease, anerusym, L bernard cancer SURGICAL HISTORY : Tubal ligation. lobectomy, ansuesym clip ENCOUNTER: Initial ACUITY: 1 day PAIN SCALE: 5/10 LOCATION: neck TECHNIQUE: Volumetric scanning of the cervical spine was performed. Multiplanar reconstructions in the sagittal, coronal and oblique axial planes were performed. Using automated exposure control and adjustment o f the mA and/or kV according to patient size, radiation dose was kept as low as reasonably achievable to obtain optimal diagnostic quality images. DICOM format image data is available electronically f or review and comparison. FINDINGS: VERTEBRAE: Normal vertebral body height. ALIGNMENT: No evidence of subluxation. Reversal of normal pseudoarthrosis C2-C3: Moderate facet disease worse on the right neural foramen encroachment. No spinal stenosis. C3-C4: Moderate bilateral facet disease and uncinate ridging mild spinal stenosis. No fracture C4-C5: Moderate uncinate ridging and bilateral from encroachment and mild to moderate left-sided spinal sten osis. C5-C6: Moderately ridging worse on the right than the left moderate spinal stenosis and mild bilateral neura l foramina encroachment. C6-C7: The bony spinal canal is normal in size. No evidence of disc bulge or herniation. The neural forami na are bilaterally patent. C7-T1: The bony spinal canal is normal in size. No evidence of disc bulge or herniation. The neural forami na are bilaterally patent. CONCLUSION: Reversal of the normal cervical lordosis moderate to severe degenerative changes mode rate spinal stenosis C4-C5 and C5-C6. Worse at C5-C6. Blayne Sheets MD FACR on September 30, 2017 at 8:43 Board Certified Radiologist. This report was verified electronically.
--- NOTE | 2017-09-30 09:21 | RADRPT ---
EXAM DATE/TIME: 09/30/2017 08:02 [facility] COMPARISON: CT BRAIN W/O CONTRAST, August 24, 2017, 13:57. CTA BRAIN W 3D RECON, August 24, 2017, 13:59. CT BRAIN W/O CONTRAST, September 30, 2017, 8:02. INDICATIONS : Trauma, fall this morning, headache right facial pain RADIATION DOSE: 62.41 CTDIvol (mGy) MEDICAL HISTORY : Cerebrovascular disease. Congestive heart failure. Diabetes mellitus type 2.Aneursym, lung cancer, r enal disease SURGICAL HISTORY : Tubal ligation. lobectomy, aneursym clip ENCOUNTER: Initial ACUITY: 1 day PAIN SCORE: 5/10 LOCATION: cranial TECHNIQUE: Volumetric scanning of the facial bones was performed. Using automated exposure control and adjustme nt of the mA and/or kV according to patient size, radiation dose was kept as low as reasonably achiev able to obtain optimal diagnostic quality images. DICOM format image data is available electronicall y for review and comparison. FINDINGS: Acute fractures involving the anterior and medial lazcano of the right maxillary sinus as well as the r ight orbital floor are noted. There is approximately 8 mm of depression of the right orbital floor. O rbital emphysema is noted. There is opacification of the right maxillary sinus consistent with probab le hemorrhage. The globes are intact. There is mild soft tissue swelling overlying the right frontal bone. Metallic foreign bodies are noted within the soft tissues of the right frontal scalp and are un changed compared to previous examination. Coil embolization is again noted in the expected region of the basilar tip. There is obstruction of the right ostiomeatal complex. There is nasal septal deviati on to the left. Right-sided mariel bullosa is noted. Nasal septal defect is noted. Mild mucosal thick ening is noted within the right ethmoid air cells and right sphenoid sinus. CONCLUSION: 1. Acute right orbital floor fracture with 8 mm of depression of the fracture fragment. 2. Acute fractures involving the anterior and medial lazcano of right maxillary sinus with hemorrhage f illing the right maxillary sinus. 3. Mild soft tissue swelling overlying right frontal bone as well as stable metallic foreign bodies w ithin the soft tissues of the right frontal scalp. 4. Obstruction of the right ostiomeatal complex. 5. Nasal septal deviation to the left. 6. Right-sided mariel bullosa. 7. Mild mucosal thickening involving right ethmoid air cells and right sphenoid sinus. Eric Green MD on September 30, 2017 at 9:10 Board Certified Radiologist. This report was verified electronically.
[2017-09-30] MEDS ORDERED: ZITH250T PO (09:55)
[2017-09-30] MEDS ORDERED: AZITHROMYCIN 250 MG TAB PO ONE (10:00)
--- NOTE | 2017-09-30 15:28 | EKG ---
Date Performed: 09/30/2017 Time Performed: 06:39:47 PTAGE: 66 years EKG: Sinus rhythm Since the previous tracing, no significant change noted NORMAL ECG PREVIOUS TRACING : 09/11/2017 15.39 DOCTOR: Penelope Deng Interpretating Date/Time 09/30/2017 15:20:53
[2017-09-30] MEDS ORDERED: CLIN300C5 PO (21:11)
== END 2017-09-30 11:26 | disposition home or self-care (01) ==
LOC: NEPE 06:31
DX: S02.31XA Fracture of orbital floor, right side, initial encounter for closed fracture (principal); S09.90XA Unspecified injury of head, initial encounter; S01.111A Laceration without foreign body of right eyelid and periocular area, initial encounter; J40 Bronchitis, not specified as acute or chronic; W05.0XXA Fall from non-moving wheelchair, initial encounter; Z23 Encounter for immunization; I13.2 Hypertensive heart and chronic kidney disease with heart failure and with stage 5 chronic kidney disease, or end stage renal disease; E11.22 Type 2 diabetes mellitus with diabetic chronic kidney disease; N18.6 End stage renal disease; I50.9 Heart failure, unspecified; I25.10 Atherosclerotic heart disease of native coronary artery without angina pectoris; E78.00 Pure hypercholesterolemia, unspecified; I25.2 Old myocardial infarction; J44.9 Chronic obstructive pulmonary disease, unspecified; M19.90 Unspecified osteoarthritis, unspecified site; F32.9 Major depressive disorder, single episode, unspecified; F17.210 Nicotine dependence, cigarettes, uncomplicated; Z91.81 History of falling; Z99.2 Dependence on renal dialysis; Z85.118 Personal history of other malignant neoplasm of bronchus and lung; Z88.2 Allergy status to sulfonamides; Z88.5 Allergy status to narcotic agent; Z79.899 Other long term (current) drug therapy; L03.115 Cellulitis of right lower limb; C80.1 Malignant (primary) neoplasm, unspecified; J18.9 Pneumonia, unspecified organism; Z79.2 Long term (current) use of antibiotics; Z88.8 Allergy status to other drugs, medicaments and biological substances
CPT/HCPCS: 12011; 70450; 70486; 71045; 72125; 80048; 83735; 84100; 85025; 85610; 85730; 90471; 90714; 93005

== ENCOUNTER 2017-09-30 20:07 | Emergency (ER) | payer MEDICARE, OTHER ==
[~2017-09-30] VITALS: Ht 165.1 cm; Wt 61.4 kg
[~2017-09-30 20:07] MED LIST changes: +ZITH250T PO
[2017-09-30 20:28] VITALS: TEMP 98
--- NOTE | 2017-09-30 20:34 | PD ---
HPI Chief Complaint: Injury Time Seen by Provider: 20:17 Travel History International Travel<30 days: No Contact w/Intl Traveler<30days: No Traveled to known affect area: No History of Present Illness HPI 66-year-old female presents emergency department from her [facility] for evaluation of right ankle redness and a growth from her right ankle. Patient was seen and evaluated here in the emergency room this morning following a fall. She was discharged home on antibiotic for possible pneumonia. She sustained a laceration of her right eyebrow. Staff from her living facility does report that the ankle was red and this morning however they did not think to have it examined at that time. Patient reports pain around her eye where her injury is from this morning. Denies any other symptoms at this time. PFSH Past Medical History Hx Anticoagulant Therapy: Yes Arthritis: Yes Asthma: No Anxiety: Yes Depression: Yes Heart Rhythm Problems: Yes ("SKIPS BEATS") Cancer: Yes (lung s/p lobectomy and XRT ) Cardiac Catheterization: Yes Cardiovascular Problems: Yes (CAD) High Cholesterol: Yes Chemotherapy: No Chest Pain: Yes Congestive Heart Failure: Yes COPD: Yes Cerebrovascular Accident: No Coronary Artery Disease: No Diabetes: Yes Diminished Hearing: No Endocrine: Yes Gastrointestinal Disorders: Yes (CONSTIPATION, colitis ) GERD: Yes Genitourinary: Yes (BLOOD IN URINE ) Hepatitis: Yes (PREVIOUS FOOD BORNE HEPATITIS INFECTION PER CAREGIVER) Hiatal Hernia: Yes Hypertension: Yes (NOW HYPOTENSION) Immune Disorder: No Implanted Vascular Access Dvce: Yes (LUE) Kidney Stones: No Musculoskeletal: Yes (OA) Neurologic: Yes (BRAIN ANEURYSM) Psychiatric: Yes Reproductive: No Respiratory: Yes (END STAGE EMPHYSEMA) Immunizations Current: Yes Migraines: No Myocardial Infarction: Yes (AGE 50) Pneumonia: Yes Radiation Therapy: Yes Renal Failure: Yes (T, TH, SAT dialysis) Seizures: No Sleep Apnea: No Thyroid Disease: No Ulcer: No ?: Not : 3 Para: 3 Miscarriage: 0 : 0 Tubal Ligation: Yes Past Surgical History Abdominal Surgery: Yes (cholecystectomy) AICD: No Arteriovenous Shunt: Yes Body Medical Devices: brain artery stent capped, fitsula l arm Cardiac Surgery: Yes (cardiac cath) Cholecystectomy: Yes Ear Surgery: No Endocrine Surgery: No Eye Surgery: No Gynecologic Surgery: Yes Insulin Pump: No Joint Replacement: Yes (R FEMUR REPAIR) Neurologic Surgery: Yes (brain anuerysm with stent (capped)) Oral Surgery: No Pacemaker: No Thoracic Surgery: Yes (WEDGE RESECTION FOR SQUAMOUS CELL CARCINOMA) Other Surgery: Yes (lobectomy, brain aneuysm clipp, tube ligation, right femur ro) Social History Alcohol Use: No Tobacco Use: Yes (1 PPD) Substance Use: No Allergies-Medications (Allergen,Severity, Reaction): Coded Allergies: morphine (Verified Allergy, Severe, RASH, 09/30/17) Sulfa (Sulfonamide Antibiotics) (Verified Allergy, Unknown, 09/30/17) ciprofloxacin (Verified Adverse Reaction, Intermediate, NAUSEAS, 09/30/17) codeine (Verified Adverse Reaction, Intermediate, Vertigo, 09/30/17) Reported Meds & Prescriptions Reported Meds & Active Scripts Active Clindamycin (Clindamycin HCl) 300 Mg Cap 300 Mg PO TID 10 Days Zithromax (Azithromycin) 250 Mg Tab 250 Mg PO DAILY Oxycodone (Oxycodone HCl) 10 Mg Tab 10 Mg PO Q8HR PRN Xanax (Alprazolam) 1 Mg Tab 0.5 Mg PO BID PRN 60 Days Cardizem (Diltiazem HCl) 30 Mg Tab 30 Mg PO Q6HR 30 Days Catapres (Clonidine) 0.1 Mg Tab 0.1 Mg PO UNSCH PRN 30 Days Lipitor (Atorvastatin Calcium) 10 Mg Tab 10 Mg PO HS 30 Days Metoprolol Tartrate 25 Mg Tab 25 Mg PO Q12HR Hold if systolic BP < 110 or Heart rate < 65 Vitamin D3 (Cholecalciferol) 2,000 Unit Cap 2,000 Units PO DAILY Fluoxetine (Fluoxetine HCl) 20 Mg Tab 20 Mg PO DAILY Midodrine 10 Mg Tab 10 Mg PO TID Calcium Acetate (Calcium Acetate (Phosphate Bin) 667 Mg Cap 667 Mg PO TIDPC Spiriva Handihaler (Tiotropium Inh) 18 Mcg Cap 18 Mcg INH DAILY 30 Days 1 capsule = 18 mcg Reported Melatonin Cr (Melatonin) 3 Mg Tab Colace (Docusate Sodium) 100 Mg Capsule 200 Mg PO HS Guaifenesin Liq (Guaifenesin) 100 mg/5 ML Soln 200 Mg PO Q4H PRN Breo Ellipta Inh (Fluticasone/Vilanterol) 100-25 Mcg/Act Inh 1 Puff INH DAILY Use daily at the same time. Rinse mouth after each use. Tylenol (Acetaminophen) 325 Mg Tab 650 Mg PO Q4H PRN Milk of Magnesia Liq (Magnesium Hydroxide) 400 Mg/5 Ml Susp 30 Ml PO HS PRN Nitroglycerin SL (Nitroglycerin) 0.4 Mg Subl 0.4 Mg SL DIRECTED PRN ONE TABLET UNDER THE TONGUE NEEDED FOR CHEST PAIN, MAY REPEAT EVERY FIVE MINUTES FOR A TOTAL OF 3 DOSES OR CALL 911 IF NO RELIEF Gabapentin 100 Mg Cap 300 Mg PO BID Bupropion HCl ER 24 HR (Bupropion HCl) 150 Mg Tab 150 Mg PO DAILY Lidopril Topical (Lidocaine-Prilocaine Topical) 2.5-2.5 % Cream 1 Applic TOPICAL TUTHSA PRN Apply to shunt site daily every Saturday, and Saturday 1hr prior to dialysis Zofran (Ondansetron HCl) 4 Mg Tab 4 Mg PO Q6HR PRN Dialyvite 800 (B-Complex W/ C & Folic Acid) 1 Tab 1 Tab PO DAILY Ventolin Hfa 18 GM Inh (Albuterol Sulfate) 90 Mcg/Act Aer 2 Puff INH Q4HR PRN Aspirin 81 Mg Chew 81 Mg PO DAILY Oxygen tank (Oxygen) 1 Ea Tank 2 Liter EDUARDO.CANULA HS Oxygen Concentrator Portable Gaseous 2 L/min via Nasal Cannula Continuous For 99 months Review of Systems Except as stated in HPI: all other systems reviewed are Neg Physical Exam Narrative GENERAL: Well-nourished, well-developed elderly female patient, lying in bed in no acute distress. SKIN: Focused skin assessment warm/dry. HEAD: Normocephalic. Right periorbital ecchymosis. There is a 1 and half centimeter laceration in the lateral right eyebrow. EYES: No scleral icterus. No injection or drainage. NECK: Supple, trachea midline. No JVD or lymphadenopathy. CARDIOVASCULAR: Regular rate and rhythm RESPIRATORY: Breath sounds equal bilaterally. No accessory muscle use. GASTROINTESTINAL: Abdomen soft, non-tender, nondistended. MUSCULOSKELETAL: No cyanosis. The right ankle is mildly edematous with some erythema on the medial aspect. There is a 1 cm in diameter circular crusted area with a projecting piece of tissue from it. No fluctuation. No induration. BACK: Nontender without obvious deformity. No CVA tenderness. Data Data Last Documented VS Vital Signs Date Time Temp Pulse Resp B/P (MAP) Pulse Ox O2 Delivery O2 Flow Rate FiO2 09/30/17 20:38 98.0 65 16 147/61 (89) 98 Room Air Orders Orders Ankle, Complete (Rez0eyy) (09/30/17 ) Ed Discharge Order (09/30/17 21:09) [facility] Medical Decision Making Medical Screen Exam Complete: Yes Emergency Medical Condition: Yes Medical Record Reviewed: Yes Differential Diagnosis Cellulitis versus sprain versus fracture Narrative Course 66-year-old female presents emergency department for evaluation of her right ankle. Patient appears without distress. Vital signs are stable. Patient was started on azithromycin this morning for pneumonia. X-ray of the right ankle is complete. There is no acute bony abnormality. I discussed the patient my attending physician. She will be started on clindamycin for cellulitis. She agrees to return immediately with any acute worsening symptoms. Last Impressions Ankle X-Ray 09/30/17 0000 Signed Impressions: Service Date/Time: Saturday, September 30, 2017 20:20 - CONCLUSION: 1. Previous fixation of posterior calcaneus. Soft tissue swelling as above. No acute fracture. Doug Sheriff MD Diagnosis Primary Impression: Cellulitis of right lower extremity Additional Impressions: Squamous cell carcinoma ESRD (end stage renal disease) Referrals: Primary Care Physician Patient Instructions: Cellulitis (ED), General Instructions Additional Instructions: Over the counter Probiotics for the duration of your antibiotics and a week following Follow-up with her primary care provider Return immediately with any acute worsening symptoms Med/Other Pt SpecificInfo: Prescription(s) given Scripts Clindamycin (Clindamycin) 300 Mg Cap 300 MG PO TID for Infection for 10 Days, CAP 0 Refills Prov: Kayley Miller 09/30/17 Disposition: 01 DISCHARGE HOME Condition: Stable Kayley Miller Sep 30, 2017 20:34
[2017-09-30 20:38] VITALS: BP 147/61; PULSE 65; RESP 16; TEMP 98; O2SAT 98
--- NOTE | 2017-09-30 20:56 | RADRPT ---
EXAM DATE/TIME: 09/30/2017 20:20 [facility] COMPARISON: No previous studies available for comparison. INDICATIONS : Right heel pain after fall. MEDICAL HISTORY : None. SURGICAL HISTORY : Old heel fracture, ORIF. ENCOUNTER: Initial ACUITY: 1 week PAIN SCORE: Non-responsive. LOCATION: Right posterior heel. FINDINGS: There is screw fixation of the posterior calcaneus presumably from prior Achilles repair. Accessory o ssicles present in the soft tissues. No acute bony abnormality. Prominent plantar calcaneal spur. Sof t tissue swelling posteriorly and laterally at the ankle. No acute fracture. CONCLUSION: 1. Previous fixation of posterior calcaneus. Soft tissue swelling as above. No acute fracture. Doug Sheriff MD on September 30, 2017 at 20:52 Board Certified Radiologist. This report was verified electronically.
[2017-09-30] MEDS ORDERED: CLIN300C5 PO (21:11)
== END 2017-10-01 07:00 | disposition home or self-care (01) ==
LOC: NEPD 20:07
DX: L03.115 Cellulitis of right lower limb (principal); N18.6 End stage renal disease; C80.1 Malignant (primary) neoplasm, unspecified; J18.9 Pneumonia, unspecified organism; I13.2 Hypertensive heart and chronic kidney disease with heart failure and with stage 5 chronic kidney disease, or end stage renal disease; E11.22 Type 2 diabetes mellitus with diabetic chronic kidney disease; I50.9 Heart failure, unspecified; I25.10 Atherosclerotic heart disease of native coronary artery without angina pectoris; E78.00 Pure hypercholesterolemia, unspecified; J44.9 Chronic obstructive pulmonary disease, unspecified; F32.9 Major depressive disorder, single episode, unspecified; F17.210 Nicotine dependence, cigarettes, uncomplicated; Z85.118 Personal history of other malignant neoplasm of bronchus and lung; Z99.2 Dependence on renal dialysis; Z79.2 Long term (current) use of antibiotics; Z88.5 Allergy status to narcotic agent; Z88.2 Allergy status to sulfonamides; Z88.8 Allergy status to other drugs, medicaments and biological substances; Z79.899 Other long term (current) drug therapy
CPT/HCPCS: 73610; 99283

== ENCOUNTER 2017-10-04 22:30 | Emergency (ER) | payer MEDICARE, OTHER ==
[~2017-10-04] VITALS: Ht 162.6 cm; Wt 60.0 kg
[~2017-10-04 22:30] MED LIST changes: +CLIN300C5 PO; -LEVA750T9 PO; -PRED10 PO
[2017-10-04 22:39] VITALS: BP 160/68; PULSE 98; RESP 22; TEMP 99.3; O2SAT 94
[2017-10-04] MEDS ORDERED: SODIUM CHLORIDE 0.9% FLUSH 10 ML FLUSH IVF PRN (22:45)
[2017-10-04 22:46] VITALS: BP 160/68; PULSE 95; RESP 22; O2SAT 98
[2017-10-04 22:54] VITALS: PULSE 95; RESP 22; O2SAT 99
--- NOTE | 2017-10-04 23:33 | RADRPT ---
EXAM DATE/TIME: 10/04/2017 23:14 [facility] COMPARISON: CHEST SINGLE AP, August 20, 2017, 11:45. CHEST SINGLE AP, August 26, 2017, 17:32. CHEST SINGLE AP, September 30, 2017, 7:47. INDICATIONS : Chest pain. MEDICAL HISTORY : Emphysema. Chronic obstructive pulmonary disease. Cardiovascular disease. Congestive heart failu re. Diabetes mellitus type 2.Renal failure, anerusym, Lung cancer SURGICAL HISTORY : Tubal ligation. lobectomy, ansuesym clip ENCOUNTER: Initial ACUITY: 2 days PAIN SCORE: 8/10 LOCATION: Bilateral chest FINDINGS: There is resolving pulmonary vascular congestion. Scarring is present in the left base with elevation left hemidiaphragm. No pleural effusions are identified. The cardiac silhouette is normal in transve rse diameter. CONCLUSION: 1. Improving vascular congestion Adam Winters MD on October 04, 2017 at 23:30 Board Certified Radiologist. This report was verified electronically.
[2017-10-04 23:45] LABS: HEMATOCRIT 30.7 % (35.0-46.0); HEMOGLOBIN 9.9 GM/DL (11.6-15.3); MEAN CELL VOLUME 89.8 FL (80.0-100.0); MEAN CORPUSCULAR HEMOGLOBIN 28.9 PG (27.0-34.0); MEAN CORPUSCULAR HGB CONC 32.2 % (32.0-36.0); MEAN PLATELET VOLUME 7.6 FL (7.0-11.0); PLATELET COUNT 364 TH/MM3 (150-450); RED BLOOD COUNT 3.42 MIL/MM3 (4.00-5.30); RED CELL DISTRIBUTION WIDTH 16.3 % (11.6-17.2); WHITE BLOOD COUNT 2.6 TH/MM3 (4.0-11.0)
[2017-10-04 23:50] LABS: INTERNATIONAL NORMALIZED RATIO 1.1 RATIO; PROTHROMBIN TIME - PATIENT 11.4 SEC (9.8-11.6)
[2017-10-04 23:52] LABS: BICARBONATE 25.6 MEQ/L (21.0-32.0); BLOOD UREA NITROGEN 14 MG/DL (7-18); CALCIUM 9.1 MG/DL (8.5-10.1); CHLORIDE 106 MEQ/L (98-107); CREATININE 2.78 MG/DL (0.50-1.00); GLOMERULAR FILTRATION RATE 17 ML/MIN (>89); GLUCOSE,RANDOM 176 MG/DL (74-106); SODIUM (NA) 141 MEQ/L (136-145)
[2017-10-04 23:56] LABS: TROPONIN I LESS THAN 0.02 NG/ML (0.02-0.05)
--- NOTE | 2017-10-05 00:03 | PD ---
HPI Chief Complaint: Cardiac Complaint Time Seen by Provider: 22:44 Travel History International Travel<30 days: No Contact w/Intl Traveler<30days: No Traveled to known affect area: No History of Present Illness HPI 66-year-old female arrives by EMS. She reports chest pain for 1 day. Location generalized. She underwent hemodialysis today as she does every Saturday without event. She describes a 9/10 squeezing sensation. She received aspirin and nitro in route and the pain decreased to 97. EMS notes recent diagnosis of a pneumonia. On seen the O2 sat is 100% 2 L nasal cannula. PFSH Past Medical History Hx Anticoagulant Therapy: Yes Arthritis: Yes Asthma: No Anxiety: Yes Depression: Yes Heart Rhythm Problems: Yes ("SKIPS BEATS") Cancer: Yes (lung s/p lobectomy and XRT ) Cardiac Catheterization: Yes Cardiovascular Problems: Yes (CAD) High Cholesterol: Yes Chemotherapy: No Chest Pain: Yes Congestive Heart Failure: Yes COPD: Yes Cerebrovascular Accident: No Coronary Artery Disease: No Diabetes: Yes Patient Takes Glucophage: No Dialysis: Yes (PT STATES SHE GOES T TH SAT BUT PT WENT TODAY.) Diminished Hearing: No Endocrine: Yes Gastrointestinal Disorders: Yes (CONSTIPATION, colitis ) GERD: Yes Genitourinary: Yes (BLOOD IN URINE ) Headaches: No Hepatitis: Yes (PREVIOUS FOOD BORNE HEPATITIS INFECTION PER CAREGIVER) Hiatal Hernia: Yes Hypertension: Yes (NOW HYPOTENSION) Immune Disorder: No Implanted Vascular Access Dvce: Yes (LUE) Kidney Stones: No Musculoskeletal: Yes (OA) Neurologic: Yes (BRAIN ANEURYSM) Psychiatric: Yes Reproductive: No Respiratory: Yes (END STAGE EMPHYSEMA) Immunizations Current: Yes Migraines: No Myocardial Infarction: Yes (AGE 50) Pneumonia: Yes Radiation Therapy: Yes Renal Failure: Yes Seizures: No Sleep Apnea: No Thyroid Disease: No Ulcer: No : 3 Para: 3 Miscarriage: 0 : 0 Tubal Ligation: Yes Past Surgical History Abdominal Surgery: Yes (cholecystectomy) AICD: No Arteriovenous Shunt: Yes Body Medical Devices: brain artery stent capped, fitsula l arm Cardiac Surgery: Yes (cardiac cath) Cholecystectomy: Yes Ear Surgery: No Endocrine Surgery: No Eye Surgery: No Gynecologic Surgery: Yes Insulin Pump: No Joint Replacement: Yes (R FEMUR REPAIR) Neurologic Surgery: Yes (brain anuerysm with stent (capped)) Oral Surgery: No Pacemaker: No Thoracic Surgery: Yes (WEDGE RESECTION FOR SQUAMOUS CELL CARCINOMA) Other Surgery: Yes (lobectomy, brain aneuysm clipp, tube ligation, right femur ro) Social History Alcohol Use: No Tobacco Use: Yes (06/25 PPD) Substance Use: No Allergies-Medications (Allergen,Severity, Reaction): Coded Allergies: morphine (Verified Allergy, Severe, RASH, 09/30/17) Sulfa (Sulfonamide Antibiotics) (Verified Allergy, Unknown, 09/30/17) ciprofloxacin (Verified Adverse Reaction, Intermediate, NAUSEAS, 09/30/17) codeine (Verified Adverse Reaction, Intermediate, Vertigo, 09/30/17) Reported Meds & Prescriptions Reported Meds & Active Scripts Active Clindamycin (Clindamycin HCl) 300 Mg Cap 300 Mg PO TID 10 Days Zithromax (Azithromycin) 250 Mg Tab 250 Mg PO DAILY Oxycodone (Oxycodone HCl) 10 Mg Tab 10 Mg PO Q8HR PRN Xanax (Alprazolam) 1 Mg Tab 0.5 Mg PO BID PRN 60 Days Cardizem (Diltiazem HCl) 30 Mg Tab 30 Mg PO Q6HR 30 Days Catapres (Clonidine) 0.1 Mg Tab 0.1 Mg PO UNSCH PRN 30 Days Lipitor (Atorvastatin Calcium) 10 Mg Tab 10 Mg PO HS 30 Days Metoprolol Tartrate 25 Mg Tab 25 Mg PO Q12HR Hold if systolic BP < 110 or Heart rate < 65 Vitamin D3 (Cholecalciferol) 2,000 Unit Cap 2,000 Units PO DAILY Fluoxetine (Fluoxetine HCl) 20 Mg Tab 20 Mg PO DAILY Midodrine 10 Mg Tab 10 Mg PO TID Calcium Acetate (Calcium Acetate (Phosphate Bin) 667 Mg Cap 667 Mg PO TIDPC Spiriva Handihaler (Tiotropium Inh) 18 Mcg Cap 18 Mcg INH DAILY 30 Days 1 capsule = 18 mcg Reported Melatonin Cr (Melatonin) 3 Mg Tab Colace (Docusate Sodium) 100 Mg Capsule 200 Mg PO HS Guaifenesin Liq (Guaifenesin) 100 mg/5 ML Soln 200 Mg PO Q4H PRN Breo Ellipta Inh (Fluticasone/Vilanterol) 100-25 Mcg/Act Inh 1 Puff INH DAILY Use daily at the same time. Rinse mouth after each use. Tylenol (Acetaminophen) 325 Mg Tab 650 Mg PO Q4H PRN Milk of Magnesia Liq (Magnesium Hydroxide) 400 Mg/5 Ml Susp 30 Ml PO HS PRN Nitroglycerin SL (Nitroglycerin) 0.4 Mg Subl 0.4 Mg SL DIRECTED PRN ONE TABLET UNDER THE TONGUE NEEDED FOR CHEST PAIN, MAY REPEAT EVERY FIVE MINUTES FOR A TOTAL OF 3 DOSES OR CALL 911 IF NO RELIEF Gabapentin 100 Mg Cap 300 Mg PO BID Bupropion HCl ER 24 HR (Bupropion HCl) 150 Mg Tab 150 Mg PO DAILY Lidopril Topical (Lidocaine-Prilocaine Topical) 2.5-2.5 % Cream 1 Applic TOPICAL TUTHSA PRN Apply to shunt site daily every Saturday, and Saturday 1hr prior to dialysis Zofran (Ondansetron HCl) 4 Mg Tab 4 Mg PO Q6HR PRN Dialyvite 800 (B-Complex W/ C & Folic Acid) 1 Tab 1 Tab PO DAILY Ventolin Hfa 18 GM Inh (Albuterol Sulfate) 90 Mcg/Act Aer 2 Puff INH Q4HR PRN Aspirin 81 Mg Chew 81 Mg PO DAILY Oxygen tank (Oxygen) 1 Ea Tank 2 Liter EDUARDO.CANULA HS Oxygen Concentrator Portable Gaseous 2 L/min via Nasal Cannula Continuous For 99 months Review of Systems Except as stated in HPI: all other systems reviewed are Neg General / Constitutional: No: Fever Cardiovascular: Positive: Chest Pain or Discomfort Physical Exam Narrative GENERAL: 66-year-old female pleasant well-nourished well-developed Vital Signs Date Time Temp Pulse Resp B/P (MAP) Pulse Ox O2 Delivery O2 Flow Rate FiO2 10/04/17 22:54 95 22 99 Nasal Cannula 2.00 10/04/17 22:54 99 Nasal Cannula 2.00 10/04/17 22:46 95 22 160/68 (98) 98 Nasal Cannula 2.00 10/04/17 22:39 99.3 98 22 160/68 (98) 94 SKIN: Warm and dry. HEAD: Atraumatic. Normocephalic. EYES: Pupils equal and round. No scleral icterus. No injection or drainage. ENT: No nasal bleeding or discharge. Mucous membranes pink and moist. NECK: Trachea midline. No JVD. CARDIOVASCULAR: Regular rate and rhythm. RESPIRATORY: Coarse wheezing bilaterally. Respiratory rate about 16. GASTROINTESTINAL: Abdomen soft, non-tender, nondistended. Hepatic and splenic margins not palpable. MUSCULOSKELETAL: LUE av fistula. No gross deformity otherwise. NEUROLOGICAL: Awake and alert. No obvious cranial nerve deficits. Motor grossly within normal limits. Five out of 5 muscle strength in the arms and legs. Normal speech. PSYCHIATRIC: Appropriate mood and affect; insight and judgment normal. Data Data Last Documented VS Vital Signs Date Time Temp Pulse Resp B/P (MAP) Pulse Ox O2 Delivery O2 Flow Rate FiO2 10/04/17 22:54 95 22 99 Nasal Cannula 2.00 10/04/17 22:39 99.3 Orders Orders Electrocardiogram (10/04/17 22:44) Basic Metabolic Panel (Bmp) (10/04/17 22:44) Ckmb (Isoenzyme) Profile (10/04/17 22:44) Complete Blood Count With Diff (10/04/17 22:44) Magnesium (Mg) (10/04/17 22:44) Prothrombin Time / Inr (Pt) (10/04/17 22:44) Act Partial Throm Time (Ptt) (10/04/17 22:44) Troponin I (10/04/17 22:44) Chest, Single Ap (10/04/17 22:44) Ecg Monitoring (10/04/17 22:44) Iv Access Insert/Monitor (10/04/17 22:44) Oximetry (10/04/17 22:44) Oxygen Administration (10/04/17 22:44) Sodium Chloride 0.9% Flush (Ns Flush) (10/04/17 22:45) Lorazepam Inj (Ativan Inj) (10/05/17 00:15) Ed Discharge Order (10/05/17 00:06) Lorazepam Inj (Ativan Inj) (10/05/17 00:15) Labs Laboratory Tests Test 10/04/17 23:01 White Blood Count 2.6 TH/MM3 Red Blood Count 3.42 MIL/MM3 Hemoglobin 9.9 GM/DL Hematocrit 30.7 % Mean Corpuscular Volume 89.8 FL Mean Corpuscular Hemoglobin 28.9 PG Mean Corpuscular Hemoglobin Concent 32.2 % Red Cell Distribution Width 16.3 % Platelet Count 364 TH/MM3 Mean Platelet Volume 7.6 FL CBC Comment AUTO DIFF Prothrombin Time 11.4 SEC Prothromb Time International Ratio 1.1 RATIO Activated Partial Thromboplast Time 30.6 SEC Blood Urea Nitrogen 14 MG/DL Creatinine 2.78 MG/DL Random Glucose 176 MG/DL Calcium Level 9.1 MG/DL Magnesium Level 2.0 MG/DL Sodium Level 141 MEQ/L Potassium Level 3.6 MEQ/L Chloride Level 106 MEQ/L Carbon Dioxide Level 25.6 MEQ/L Anion Gap 9 MEQ/L Estimat Glomerular Filtration Rate 17 ML/MIN Total Creatine Kinase 20 U/L Troponin I LESS THAN 0.02 NG/ML MDM Medical Decision Making Medical Screen Exam Complete: Yes Emergency Medical Condition: Yes Medical Record Reviewed: Yes Differential Diagnosis Pneumonia, volume overload, coronary disease Narrative Course CBC & BMP Diagram 10/04/17 23:01 Calcium Level 9.1, Magnesium Level 2.0 Troponin less than 0.02 Chest x-ray shows no consolidation or effusion. Left base scarring and hemidiaphragm elevation noted. EKG: sinus rate [address] changes Patient reports feeling better upon reassessment at about 12 midnight. The daughter called and stated the patient has been on Xanax for years and has been experiencing symptoms and she believes is related to anxiety. Patient will be given 0.5 mg Ativan here. At this point further diagnostic evaluation is considered to be low yield as would be admission. The patient is comfortable with going home as is the daughter. Diagnosis Primary Impression: Chest pain Qualified Codes: R07.9 - Chest pain, unspecified Additional Impression: Anxiety Referrals: Primary Care Physician call for appointment Med/Other Pt SpecificInfo: No Change to Meds Disposition: 01 DISCHARGE HOME Condition: Stable Shaheed Goode MD Oct 05, 2017 00:03
[2017-10-05] MEDS ORDERED: LORazepam 2 MG/ML VIAL IV PUSH ONE ×2 (00:15)
[2017-10-05 00:18] VITALS: BP 163/70; PULSE 90; RESP 20; O2SAT 98
[2017-10-05] MEDS ORDERED: ALBU0.08 NEB (00:50)
[2017-10-05 00:52] LABS: BANDS 8 % (0-6); BASOPHILS 2 % (0-2); LYMPHOCYTES 29 % (9-44); MONOCYTES 41 % (0-8); NEUTROPHIL # MANUAL DIFF 0.7 TH/MM3 (1.8-7.7); POLYS (SEG NEUTROPHILS) 20 % (16-70)
[2017-10-05 00:53] LABS: SPHEROCYTES OCC (NORMAL)
[2017-10-05 01:37] VITALS: BP 148/69; PULSE 84; RESP 18; O2SAT 99
--- NOTE | 2017-10-05 16:55 | EKG ---
Date Performed: 10/04/2017 Time Performed: 22:53:33 PTAGE: 66 years EKG: Sinus rhythm POSSIBLE LEFT ATRIAL ENLARGEMENT MINIMAL ST DEPRESSION BORDERLINE ECG Since the PREVIOUS TRACING , no significant change noted PREVIOUS TRACING 09/30/2017 @ 0639 DOCTOR: Batool Lopez Interpretating Date/Time 10/05/2017 16:53:36
[2017-10-06] MEDS ORDERED: OXYC-395 PO (17:23)
[2017-10-06] MEDS ORDERED: BENA25TA6 PO (17:23)
[2017-10-06] MEDS ORDERED: LEVA500T33 PO (17:23)
[2017-10-06] MEDS ORDERED: GABA300C5 PO (17:23)
[2017-10-06] MEDS ORDERED: CEPH-460 PO (20:53)
[2017-10-06] MEDS ORDERED: MAGICADU2 SWISH-SWAL (21:31)
== END 2017-10-05 01:43 | disposition home or self-care (01) ==
LOC: NEPC 22:30
DX: R07.9 Chest pain, unspecified (principal); F41.9 Anxiety disorder, unspecified; R94.31 Abnormal electrocardiogram [ECG] [EKG]; M19.90 Unspecified osteoarthritis, unspecified site; F32.9 Major depressive disorder, single episode, unspecified; I25.10 Atherosclerotic heart disease of native coronary artery without angina pectoris; E78.00 Pure hypercholesterolemia, unspecified; J44.9 Chronic obstructive pulmonary disease, unspecified; I11.0 Hypertensive heart disease with heart failure; I50.9 Heart failure, unspecified; E11.9 Type 2 diabetes mellitus without complications; I25.2 Old myocardial infarction; F17.210 Nicotine dependence, cigarettes, uncomplicated; Z99.2 Dependence on renal dialysis
CPT/HCPCS: 71045; 80048; 82550; 83735; 84484; 85007; 85027; 85610; 85730; 93005; 96374; 99285; J2060

== ENCOUNTER 2017-10-06 16:34 | Emergency (ER) | payer MEDICARE, OTHER ==
[~2017-10-06] VITALS: Ht 162.6 cm; Wt 63.6 kg
[~2017-10-06 16:34] MED LIST changes: +ALBU0.08 NEB
[2017-10-06 16:43] VITALS: BP 172/78; RESP 16; TEMP 98.9
[2017-10-06 16:56] VITALS: BP 172/78; PULSE 74; RESP 18; TEMP 98.8; O2SAT 94
[2017-10-06] MEDS ORDERED: SODIUM CHLORIDE 0.9% FLUSH 10 ML FLUSH IV FLUSH PRN (17:15)
[2017-10-06 17:19] VITALS: PULSE 74; RESP 18; O2SAT 94
[2017-10-06] MEDS ORDERED: OXYC-395 PO (17:23)
[2017-10-06] MEDS ORDERED: GABA300C5 PO (17:23)
[2017-10-06] MEDS ORDERED: BENA25TA6 PO (17:23)
[2017-10-06] MEDS ORDERED: LEVA500T33 PO (17:23)
--- NOTE | 2017-10-06 17:29 | RADRPT ---
EXAM DATE/TIME: 10/06/2017 17:17 [facility] COMPARISON: CT BRAIN W/O CONTRAST, September 30, 2017, 8:02. INDICATIONS : Unwitnessed fall from wheelchair, cut on her left eyebrow. RADIATION DOSE: 66.34 CTDIvol (mGy) MEDICAL HISTORY : Cardiovascular disease. Congestive heart failure. Hypertension. SURGICAL HISTORY : AV shunt ENCOUNTER: Initial ACUITY: 1 day PAIN SCALE: 4/10 LOCATION: Right cranial TECHNIQUE: Multiple contiguous axial images were obtained of the head. Using automated exposure control and adj ustment of the mA and/or kV according to patient size, radiation dose was kept as low as reasonably a chievable to obtain optimal diagnostic quality images. DICOM format image data is available electro nically for review and comparison. FINDINGS: Previous stent-assisted basilar tip aneurysm coiling. Significant streak artifact from the coil mass. Elsewhere, the brain is stable, symmetric and benign with no evidence of mass or hemorrhage is nothin g to suggest acute infarction. There is stable post traumatic deformity and opacification of the right maxillary sinus. CONCLUSION: Stable brain appearance with no acute findings Jose Ivan MD on October 06, 2017 at 17:26 Board Certified Radiologist. This report was verified electronically.
--- NOTE | 2017-10-06 17:36 | RADRPT ---
EXAM DATE/TIME: 10/06/2017 17:08 [facility] COMPARISON: CHEST SINGLE AP, July 20, 2016, 19:40. CT THORAX W/O CONTRAST, August 07, 2017, 19:00. CHEST S MEHUL AP, September 11, 2017, 16:08. CHEST SINGLE AP, October 04, 2017, 23:14. INDICATIONS : Shortness of breath. MEDICAL HISTORY : None. SURGICAL HISTORY : None. ENCOUNTER: Initial ACUITY: 1 day PAIN SCORE: 0/10 LOCATION: Bilateral chest FINDINGS: There is grossly stable chronic opacity in the left lung base. Right lung is grossly clear. Cardiac c ontours are stable and satisfactory accounting for rotation. CONCLUSION: No significant change Jose Ivan MD on October 06, 2017 at 17:33 Board Certified Radiologist. This report was verified electronically.
[2017-10-06 18:47] LABS: PROTHROMBIN TIME - PATIENT 10.5 SEC (9.8-11.6)
[2017-10-06 18:52] LABS: AUTOMATED NEUTROPHIL # 2.2 TH/MM3 (1.8-7.7); BASOPHIL % 0.5 % (0.0-2.0); EOSINOPHIL % 0.1 % (0.0-4.0); HEMATOCRIT 37.6 % (35.0-46.0); HEMOGLOBIN 12.1 GM/DL (11.6-15.3); LYMPH % 12.3 % (9.0-44.0); LYMPHOCYTE # 0.5 TH/MM3 (1.0-4.8); MEAN CELL VOLUME 89.3 FL (80.0-100.0); MEAN CORPUSCULAR HEMOGLOBIN 28.8 PG (27.0-34.0); MEAN CORPUSCULAR HGB CONC 32.3 % (32.0-36.0); MEAN PLATELET VOLUME 7.5 FL (7.0-11.0); MONO % 32.8 % (0.0-8.0); MONOCYTE # 1.4 TH/MM3 (0-0.9); NEUT % 54.3 % (16.0-70.0); PLATELET COUNT 412 TH/MM3 (150-450); RED BLOOD COUNT 4.21 MIL/MM3 (4.00-5.30); RED CELL DISTRIBUTION WIDTH 16.4 % (11.6-17.2); WHITE BLOOD COUNT 4.1 TH/MM3 (4.0-11.0)
[2017-10-06 18:55] LABS: ALKALINE PHOSPHATASE 122 U/L (45-117); ALT (GPT) 18 U/L (10-53); AST (GOT) 17 U/L (15-37); BLOOD UREA NITROGEN 34 MG/DL (7-18); CALCIUM 10.3 MG/DL (8.5-10.1); CHLORIDE 102 MEQ/L (98-107); CREATININE 5.34 MG/DL (0.50-1.00); GLOMERULAR FILTRATION RATE 8 ML/MIN (>89); GLUCOSE,RANDOM 69 MG/DL (74-106); SODIUM (NA) 135 MEQ/L (136-145); TOTAL BILIRUBIN ADULT 0.4 MG/DL (0.2-1.0); TOTAL PROTEIN 8.5 GM/DL (6.4-8.2); TROPONIN I LESS THAN 0.02 NG/ML (0.02-0.05)
[2017-10-06 19:03] LABS: ALBUMIN 2.9 GM/DL (3.4-5.0)
[2017-10-06 19:26] VITALS: BP 183/84; PULSE 76; RESP 18; O2SAT 100
--- NOTE | 2017-10-06 19:47 | PD ---
HPI Chief Complaint: Altered Mental Status Time Seen by Provider: 17:05 Travel History International Travel<30 days: No Contact w/Intl Traveler<30days: No Traveled to known affect area: No History of Present Illness HPI Patient is a 66 year old female who [facility] due to altered mental status. Patient says she just feels tired. Daughter says for the past few days she has been more lethargic. She was here last week multiple times, once for a fall where she sustained an orbital fracture. She denies any pains. She denies chest pain, SOB, nausea, vomiting, or abdominal pain. Severity is mild to moderate. Patient is on dialysis and missed dialysis yesterday. PFSH Past Medical History Hx Anticoagulant Therapy: Yes Arthritis: Yes Asthma: No Anxiety: Yes Depression: Yes Heart Rhythm Problems: Yes ("SKIPS BEATS") Cancer: Yes (lung s/p lobectomy and XRT ) Cardiac Catheterization: Yes Cardiovascular Problems: Yes (CAD) High Cholesterol: Yes Chemotherapy: No Chest Pain: Yes Congestive Heart Failure: Yes COPD: Yes Cerebrovascular Accident: No Coronary Artery Disease: No Diabetes: Yes Patient Takes Glucophage: No Dialysis: Yes (PT STATES SHE GOES T TH SAT BUT PT WENT TODAY.) Diminished Hearing: No Endocrine: Yes Gastrointestinal Disorders: Yes (CONSTIPATION, colitis ) GERD: Yes Genitourinary: Yes (BLOOD IN URINE ) Headaches: No Hepatitis: Yes (PREVIOUS FOOD BORNE HEPATITIS INFECTION PER CAREGIVER) Hiatal Hernia: Yes Hypertension: Yes (NOW HYPOTENSION) Immune Disorder: No Implanted Vascular Access Dvce: Yes (LUE) Kidney Stones: No Musculoskeletal: Yes (OA) Neurologic: Yes (BRAIN ANEURYSM) Psychiatric: Yes Reproductive: No Respiratory: Yes (END STAGE EMPHYSEMA) Immunizations Current: Yes Migraines: No Myocardial Infarction: Yes (AGE 50) Pneumonia: Yes Radiation Therapy: Yes Renal Failure: Yes Seizures: No Sleep Apnea: No Thyroid Disease: No Ulcer: No : 3 Para: 3 Miscarriage: 0 : 0 Tubal Ligation: Yes Past Surgical History Abdominal Surgery: Yes (cholecystectomy) AICD: No Arteriovenous Shunt: Yes Body Medical Devices: brain artery stent capped, fitsula l arm Cardiac Surgery: Yes (cardiac cath) Cholecystectomy: Yes Ear Surgery: No Endocrine Surgery: No Eye Surgery: No Gynecologic Surgery: Yes Insulin Pump: No Joint Replacement: Yes (R FEMUR REPAIR) Neurologic Surgery: Yes (brain anuerysm with stent (capped)) Oral Surgery: No Pacemaker: No Thoracic Surgery: Yes (WEDGE RESECTION FOR SQUAMOUS CELL CARCINOMA) Other Surgery: Yes (lobectomy, brain aneuysm clipp, tube ligation, right femur ro) Social History Alcohol Use: No Tobacco Use: Yes (06/25 PPD) Substance Use: No Allergies-Medications (Allergen,Severity, Reaction): Coded Allergies: morphine (Verified Allergy, Severe, RASH, 09/30/17) Sulfa (Sulfonamide Antibiotics) (Verified Allergy, Unknown, 09/30/17) ciprofloxacin (Verified Adverse Reaction, Intermediate, NAUSEAS, 09/30/17) codeine (Verified Adverse Reaction, Intermediate, Vertigo, 09/30/17) Reported Meds & Prescriptions Reported Meds & Active Scripts Active Magic Mouthwash Adult Liq (Multi-Ingredient Mouthwash/Gargle) 120 Ml Susp 10 Ml SWISH-SWAL ACHS Each 5mL contains: Nystatin 200,000units, Diphenhydramine 4.25mg, Viscous Lidocaine 10mg, Kahn syrup 0.8 mL Keflex (Cephalexin) 500 Mg Capsule 500 Mg PO TID 7 Days Zithromax (Azithromycin) 250 Mg Tab 250 Mg PO DAILY Cardizem (Diltiazem HCl) 30 Mg Tab 30 Mg PO Q6HR 30 Days Catapres (Clonidine) 0.1 Mg Tab 0.1 Mg PO UNSCH PRN 30 Days Lipitor (Atorvastatin Calcium) 10 Mg Tab 10 Mg PO HS 30 Days Metoprolol Tartrate 25 Mg Tab 25 Mg PO Q12HR Hold if systolic BP < 110 or Heart rate < 65 Vitamin D3 (Cholecalciferol) 2,000 Unit Cap 2,000 Units PO DAILY Fluoxetine (Fluoxetine HCl) 20 Mg Tab 20 Mg PO DAILY Midodrine 10 Mg Tab 10 Mg PO TID Calcium Acetate (Calcium Acetate (Phosphate Bin) 667 Mg Cap 667 Mg PO TIDPC Spiriva Handihaler (Tiotropium Inh) 18 Mcg Cap 18 Mcg INH DAILY 30 Days 1 capsule = 18 mcg Reported Levaquin (Levofloxacin) 500 Mg Tablet 500 Mg PO DAILY 5 Days Benadryl Allergy (Diphenhydramine HCl) 25 Mg Tablet 25 Mg PO Q4HR PRN Oxycodone (Oxycodone HCl) 10 Mg Tab 10 Mg PO Q4H PRN Gabapentin 300 Mg Cap 300 Mg PO TID Albuterol Neb (Albuterol Sulfate) 2.5 Mg/3 Ml Neb 2.5 Mg NEB QID NEB Melatonin Cr (Melatonin) 3 Mg Tab 3 Mg PO HS Guaifenesin Liq (Guaifenesin) 100 mg/5 ML Soln 200 Mg PO Q4H PRN Breo Ellipta Inh (Fluticasone/Vilanterol) 100-25 Mcg/Act Inh 1 Puff INH DAILY Use daily at the same time. Rinse mouth after each use. Tylenol (Acetaminophen) 325 Mg Tab 650 Mg PO Q4H PRN Milk of Magnesia Liq (Magnesium Hydroxide) 400 Mg/5 Ml Susp 30 Ml PO HS PRN Nitroglycerin SL (Nitroglycerin) 0.4 Mg Subl 0.4 Mg SL DIRECTED PRN ONE TABLET UNDER THE TONGUE NEEDED FOR CHEST PAIN, MAY REPEAT EVERY FIVE MINUTES FOR A TOTAL OF 3 DOSES OR CALL 911 IF NO RELIEF Bupropion HCl ER 24 HR (Bupropion HCl) 150 Mg Tab 150 Mg PO DAILY Lidopril Topical (Lidocaine-Prilocaine Topical) 2.5-2.5 % Cream 1 Applic TOPICAL TUTHSA Apply to shunt site daily every Saturday, and Saturday 1hr prior to dialysis Zofran (Ondansetron HCl) 4 Mg Tab 4 Mg PO Q6HR PRN Dialyvite 800 (B-Complex W/ C & Folic Acid) 1 Tab 1 Tab PO DAILY Ventolin Hfa 18 GM Inh (Albuterol Sulfate) 90 Mcg/Act Aer 2 Puff INH Q4HR Aspirin 81 Mg Chew 81 Mg PO DAILY Oxygen tank (Oxygen) 1 Ea Tank 2 Liter EDUARDO.CANULA HS Oxygen Concentrator Portable Gaseous 2 L/min via Nasal Cannula Continuous For 99 months Review of Systems Except as stated in HPI: all other systems reviewed are Neg General / Constitutional: No: Fever, Chills Eyes: No: Blurred Vision HENT: No: Headaches Cardiovascular: No: Chest Pain or Discomfort Respiratory: No: Shortness of Breath Gastrointestinal: No: Abdominal Pain Musculoskeletal: No: Myalgias Skin: No Rash, No Change in Pigmentation Physical Exam Narrative GENERAL: Awake and alert, in no acute distress. SKIN: Warm and dry. Pressure ulcer to the sacrum, no evidence of infection. Pressure ulcer to the right heel, no evidence of infection. HEAD: Atraumatic. Normocephalic. EYES: Pupils equal and round. No scleral icterus. EOMI. ENT: Mucous membranes pink and moist. NECK: Trachea midline. No JVD. CARDIOVASCULAR: Regular rate and rhythm. RESPIRATORY: No accessory muscle use. Clear to auscultation. Breath sounds equal bilaterally. GASTROINTESTINAL: Abdomen soft, non-tender, nondistended. MUSCULOSKELETAL: Extremities without clubbing, cyanosis, or edema. No obvious deformities. NEUROLOGICAL: Awake and alert. No obvious cranial nerve deficits. Motor grossly within normal limits. Five out of 5 muscle strength in the arms and legs. Normal speech. PSYCHIATRIC: Appropriate mood and affect; insight and judgment normal. Data Data Last Documented VS Orders Orders Electrocardiogram (10/06/17 17:05) Complete Blood Count With Diff (10/06/17 17:05) Comprehensive Metabolic Panel (10/06/17 17:05) Creatine Kinase (Cpk) (10/06/17 17:05) Prothrombin Time / Inr (Pt) (10/06/17 17:05) Act Partial Throm Time (Ptt) (10/06/17 17:05) Troponin I (10/06/17 17:05) Urinalysis - C+S If Indicated (10/06/17 17:05) Lactic Acid Sepsis Protocol (10/06/17 17:05) Chest, Single Ap (10/06/17 17:05) Ct Brain W/O Iv Contrast(Rout) (10/06/17 17:05) Blood Glucose (10/06/17 17:05) Ecg Monitoring (10/06/17 17:05) Iv Access Insert/Monitor (10/06/17 17:05) Oximetry (10/06/17 17:05) Sodium Chloride 0.9% Flush (Ns Flush) (10/06/17 17:15) Cath For Specimen (10/06/17 19:10) Urine Culture (10/06/17 20:07) Ceftriaxone Inj (Rocephin Inj) (10/06/17 21:00) Ed Discharge Order (10/06/17 20:53) Labs Laboratory Tests Test 10/06/17 17:50 10/06/17 18:35 10/06/17 20:07 Prothrombin Time 10.5 SEC Prothromb Time International Ratio 1.0 RATIO Activated Partial Thromboplast Time 26.3 SEC Blood Urea Nitrogen 34 MG/DL Creatinine 5.34 MG/DL Random Glucose 69 MG/DL Total Protein 8.5 GM/DL Albumin 2.9 GM/DL Calcium Level 10.3 MG/DL Alkaline Phosphatase 122 U/L Aspartate Amino Transf (AST/SGOT) 17 U/L Alanine Aminotransferase (ALT/SGPT) 18 U/L Total Bilirubin 0.4 MG/DL Sodium Level 135 MEQ/L Potassium Level 4.9 MEQ/L Chloride Level 102 MEQ/L Carbon Dioxide Level 21.0 MEQ/L Anion Gap 12 MEQ/L Estimat Glomerular Filtration Rate 8 ML/MIN Lactic Acid Level 1.5 mmol/L Total Creatine Kinase 25 U/L Troponin I LESS THAN 0.02 NG/ML White Blood Count 4.1 TH/MM3 Red Blood Count 4.21 MIL/MM3 Hemoglobin 12.1 GM/DL Hematocrit 37.6 % Mean Corpuscular Volume 89.3 FL Mean Corpuscular Hemoglobin 28.8 PG Mean Corpuscular Hemoglobin Concent 32.3 % Red Cell Distribution Width 16.4 % Platelet Count 412 TH/MM3 Mean Platelet Volume 7.5 FL Neutrophils (%) (Auto) 54.3 % Lymphocytes (%) (Auto) 12.3 % Monocytes (%) (Auto) 32.8 % Eosinophils (%) (Auto) 0.1 % Basophils (%) (Auto) 0.5 % Neutrophils # (Auto) 2.2 TH/MM3 Lymphocytes # (Auto) 0.5 TH/MM3 Monocytes # (Auto) 1.4 TH/MM3 Eosinophils # (Auto) 0.0 TH/MM3 Basophils # (Auto) 0.0 TH/MM3 CBC Comment DIFF FINAL Differential Comment Urine Color YELLOW Urine Turbidity HAZY Urine pH 8.5 Urine Specific [place] 1.009 Urine Protein 300 mg/dL Urine Glucose (UA) NEG mg/dL Urine Ketones NEG mg/dL Urine Occult Blood LARGE Urine Nitrite NEG Urine Bilirubin NEG Urine Urobilinogen LESS THAN 2.0 MG/DL Urine Leukocyte Esterase TRACE Urine RBC /hpf Urine WBC 20 /hpf Urine Squamous Epithelial Cells 1 /hpf Urine Transitional Epithelial Cells 1 /hpf Urine Amorphous Sediment RARE Urine Bacteria MOD /hpf Microscopic Urinalysis Comment CATH-CULTURE IND MDM Medical Decision Making Medical Screen Exam Complete: Yes Emergency Medical Condition: Yes Medical Record Reviewed: Yes Interpretation(s) ECG shows NSR, no ST elevation or T wave abnormalities. Differential Diagnosis electrolyte abnormalities vs dehydration vs infection Narrative Course Patient is a 66 year old female who comes in due to AMS. Exam shows no acute abnormalities. IV established, labs sent. CT head performed shows no acute abnormalities. CXR shows no acute abnormalities. Patient signed out to Dr. Torres to follow up testing and disposition the patient. Scripts Werxjfry-Tyykwkuygqqmmai-Fbjsvrvmc Liq (Magic Mouthwash Adult Liq) 120 Ml Susp 10 ML SWISH-SWAL ACHS for Mouth sores, #120 ML 0 Refills Each 5mL contains: Nystatin 200,000units, Diphenhydramine 4.25mg, Viscous Lidocaine 10mg, Kahn syrup 0.8 mL Prov: Skyla Torres MD 10/06/17 Cephalexin (Keflex) 500 Mg Capsule 500 MG PO TID for Infection for 7 Days, CAP 0 Refills Prov: Skyla Torres MD 10/06/17 Kennedi Mcclellan MD Oct 06, 2017 19:47
[2017-10-06 20:29] LABS: AMORPHOUS SEDIMENT, URINE RARE; BACTERIA, URINE MOD /hpf; BILIRUBIN, URINE NEG (NEG); BLOOD, URINE LARGE (NEG); GLUCOSE,URINE NEG (NEG); KETONE, URINE NEG (NEG); NITRITE,URINE NEG (NEG); PH, URINE 8.5 (5.0-8.5); SQUAMOUS EPITHELIAL CELL URINE 1 /hpf (0-5); TRANSITIONAL EPI CELLS, URINE 1 /hpf; URINE COLOR YELLOW (YELLW/STRAW); URINE LEUKOCYTE ESTERASE TRACE (NEG)
--- NOTE | 2017-10-06 20:43 | PD ---
Physical Exam Date Seen by Provider: Oct 06, 2017 Narrative Care was assumed at 7 PM at change of shift. This patient is here being evaluated for fatigue and somnolence. Initially, a female and male family member were doing all of the talking. They are stating that the patient's symptoms have been present for the last couple of weeks and have been getting progressively worse. They are very fixated on her blood pressure. They are also concerned about her head. She sustained a fall couple weeks ago. She was seen here at that time on 09/30 and was diagnosed with a right orbital fracture. She was discharged back to the rehab facility. She has been seen here twice since then including once later that day for redness of her right ankle. She was subsequently seen here on 10/04 with chief complaint of chest pain. Workup at that time was negative and she was discharged back to the rehab facility. The patient's daughter is also very concerned about some sores in the patient's mouth. The family eventually stepped out of the room and I was able to speak to the patient by herself. She states that she has had increasing fatigue since her hip fracture in the summer. She does state that her symptoms have been getting progressively worse. However, she states that she does not feel acutely ill tonight. She has not been running a fever. She denies any chest pain or difficulty breathing. She denies any nausea, vomiting or diarrhea. She states that she is not hurting anywhere. Data Data Last Documented VS Vital Signs Date Time Temp Pulse Resp B/P (MAP) Pulse Ox O2 Delivery O2 Flow Rate FiO2 10/06/17 19:26 76 18 183/84 (117) 100 Room Air 2.00 10/06/17 16:56 98.8 Orders Orders Electrocardiogram (10/06/17 17:05) Complete Blood Count With Diff (10/06/17 17:05) Comprehensive Metabolic Panel (10/06/17 17:05) Creatine Kinase (Cpk) (10/06/17 17:05) Prothrombin Time / Inr (Pt) (10/06/17 17:05) Act Partial Throm Time (Ptt) (10/06/17 17:05) Troponin I (10/06/17 17:05) Urinalysis - C+S If Indicated (10/06/17 17:05) Lactic Acid Sepsis Protocol (10/06/17 17:05) Chest, Single Ap (10/06/17 17:05) Ct Brain W/O Iv Contrast(Rout) (10/06/17 17:05) Blood Glucose (10/06/17 17:05) Ecg Monitoring (10/06/17 17:05) Iv Access Insert/Monitor (10/06/17 17:05) Oximetry (10/06/17 17:05) Sodium Chloride 0.9% Flush (Ns Flush) (10/06/17 17:15) Cath For Specimen (10/06/17 19:10) Urine Culture (10/06/17 20:07) Ceftriaxone Inj (Rocephin Inj) (10/06/17 21:00) Ed Discharge Order (10/06/17 20:53) Labs Laboratory Tests Test 10/06/17 17:50 10/06/17 18:35 10/06/17 20:07 Prothrombin Time 10.5 SEC Prothromb Time International Ratio 1.0 RATIO Activated Partial Thromboplast Time 26.3 SEC Blood Urea Nitrogen 34 MG/DL Creatinine 5.34 MG/DL Random Glucose 69 MG/DL Total Protein 8.5 GM/DL Albumin 2.9 GM/DL Calcium Level 10.3 MG/DL Alkaline Phosphatase 122 U/L Aspartate Amino Transf (AST/SGOT) 17 U/L Alanine Aminotransferase (ALT/SGPT) 18 U/L Total Bilirubin 0.4 MG/DL Sodium Level 135 MEQ/L Potassium Level 4.9 MEQ/L Chloride Level 102 MEQ/L Carbon Dioxide Level 21.0 MEQ/L Anion Gap 12 MEQ/L Estimat Glomerular Filtration Rate 8 ML/MIN Lactic Acid Level 1.5 mmol/L Total Creatine Kinase 25 U/L Troponin I LESS THAN 0.02 NG/ML White Blood Count 4.1 TH/MM3 Red Blood Count 4.21 MIL/MM3 Hemoglobin 12.1 GM/DL Hematocrit 37.6 % Mean Corpuscular Volume 89.3 FL Mean Corpuscular Hemoglobin 28.8 PG Mean Corpuscular Hemoglobin Concent 32.3 % Red Cell Distribution Width 16.4 % Platelet Count 412 TH/MM3 Mean Platelet Volume 7.5 FL Neutrophils (%) (Auto) 54.3 % Lymphocytes (%) (Auto) 12.3 % Monocytes (%) (Auto) 32.8 % Eosinophils (%) (Auto) 0.1 % Basophils (%) (Auto) 0.5 % Neutrophils # (Auto) 2.2 TH/MM3 Lymphocytes # (Auto) 0.5 TH/MM3 Monocytes # (Auto) 1.4 TH/MM3 Eosinophils # (Auto) 0.0 TH/MM3 Basophils # (Auto) 0.0 TH/MM3 CBC Comment DIFF FINAL Differential Comment Urine Color YELLOW Urine Turbidity HAZY Urine pH 8.5 Urine Specific [place] 1.009 Urine Protein 300 mg/dL Urine Glucose (UA) NEG mg/dL Urine Ketones NEG mg/dL Urine Occult Blood LARGE Urine Nitrite NEG Urine Bilirubin NEG Urine Urobilinogen LESS THAN 2.0 MG/DL Urine Leukocyte Esterase TRACE Urine RBC /hpf Urine WBC 20 /hpf Urine Squamous Epithelial Cells 1 /hpf Urine Transitional Epithelial Cells 1 /hpf Urine Amorphous Sediment RARE Urine Bacteria MOD /hpf Microscopic Urinalysis Comment CATH-CULTURE IND MDM Supervised Visit with USHA: No Narrative Course This patient does have some aphthous ulcers in her mouth with a very large one on the left side of her tongue. CBC Diagram 10/06/17 18:35 BMP Diagram 10/06/17 17:50 Total Protein 8.5 H, Albumin 2.9 L, Calcium Level 10.3 #H, Alkaline Phosphatase 122 H, Aspartate Amino Transf (AST/SGOT) 17, Alanine Aminotransferase (ALT/SGPT ) 18, Total Bilirubin 0.4 UA>>trace LE, innumerable RBCs, 20 WBCs, mod bact. Culture is now pending. She will be treated here with Rocephin and then discharged back to the alf on Keflex. Diagnosis Primary Impression: Fatigue Qualified Codes: R53.82 - Chronic fatigue, unspecified Additional Impressions: UTI (urinary tract infection) Qualified Codes: N39.0 - Urinary tract infection, site not specified Aphthous ulcer of mouth Patient Instructions: General Instructions, Urinary Tract Infection in Women ( [place]) Med/Other Pt SpecificInfo: Prescription(s) given Scripts Fjeuzqns-Imdvxxxhjqqyoao-Poumkkpjn Liq (Magic Mouthwash Adult Liq) 120 Ml Susp 10 ML SWISH-SWAL ACHS for Mouth sores, #120 ML 0 Refills Each 5mL contains: Nystatin 200,000units, Diphenhydramine 4.25mg, Viscous Lidocaine 10mg, Kahn syrup 0.8 mL Prov: Skyla Torres MD 10/06/17 Cephalexin (Keflex) 500 Mg Capsule 500 MG PO TID for Infection for 7 Days, CAP 0 Refills Prov: Skyla Torres MD 10/06/17 Disposition: 01 DISCHARGE HOME Condition: Stable Skyla Torres MD Oct 06, 2017 20:43
[2017-10-06] MEDS ORDERED: CEPH-460 PO (20:53)
[2017-10-06] MEDS ORDERED: cefTRIAXone INJ 1,000 MG in SODIUM CHLORIDE 0.9% INJ 100 ML IV ONE (21:00)
[2017-10-06] MEDS ORDERED: MAGICADU2 SWISH-SWAL (21:31)
--- NOTE | 2017-10-07 10:32 | EKG ---
Date Performed: 10/06/2017 Time Performed: 17:43:59 PTAGE: 66 years EKG: Sinus rhythm POSSIBLE LEFT ATRIAL ENLARGEMENT MINIMAL ST DEPRESSION BORDERLINE ECG Since the PREVIOUS TRACING , no significant change noted PREVIOUS TRACIN10/04/2017 22.53 DOCTOR: Adam Oliveros Interpretating Date/Time 10/07/2017 10:29:29
== END 2017-10-06 22:42 | disposition home or self-care (01) ==
LOC: NEPE 16:34
DX: R53.82 Chronic fatigue, unspecified (principal); N39.0 Urinary tract infection, site not specified; B95.2 Enterococcus as the cause of diseases classified elsewhere; R94.31 Abnormal electrocardiogram [ECG] [EKG]; I13.2 Hypertensive heart and chronic kidney disease with heart failure and with stage 5 chronic kidney disease, or end stage renal disease; E11.22 Type 2 diabetes mellitus with diabetic chronic kidney disease; N18.6 End stage renal disease; I50.9 Heart failure, unspecified; Z99.2 Dependence on renal dialysis
CPT/HCPCS: 70450; 71045; 80053; 81001; 82550; 83605; 84484; 85025; 85610; 85730; 87077; 87086; 87186; 93005; 96365; 99285; J0696; P9612

== ENCOUNTER 2017-10-19 13:37 | Emergency (ER) | payer MEDICARE, OTHER ==
[~2017-10-19] VITALS: Ht 160 cm; Wt 55.0 kg
[~2017-10-19 13:37] MED LIST changes: +BENA25TA6 PO; +CEPH-460 PO; -CLIN300C5 PO; -COLA100C5 PO; -GABA100C4 PO; +GABA300C5 PO; +LEVA500T33 PO; +MAGICADU2 SWISH-SWAL; -XANA1TAB2 PO
[2017-10-19 13:47] VITALS: BP 145/67; PULSE 64; RESP 18; TEMP 98.2; O2SAT 97
--- NOTE | 2017-10-19 14:05 | PD ---
HPI Chief Complaint: Back/ Neck Pain or Injury Time Seen by Provider: 13:55 Travel History International Travel<30 days: No Contact w/Intl Traveler<30days: No Traveled to known affect area: No History of Present Illness HPI 66-year-old female with history of end-stage renal disease, was at dialysis today at [facility], when she developed severe middle and lower back pain. Patient states history of back pain for which he takes oxycodone 15 mg 3-4 times daily. She denies recent trauma but states she did fall approximately 2 weeks ago. She feels this may have caused her current issue. She has had pain similar to this over the last 2 weeks intermittently. She denies fever, chills, nausea, vomiting, or changes in her bowels. Patient has history of scoliosis. Patient is allergic to sulfa, Cipro, codeine, and morphine, but does take Percocet and oxycodone. Pain currently is 8 out of 10. PFSH Past Medical History Hx Anticoagulant Therapy: Yes Arthritis: Yes Asthma: No Anxiety: Yes Depression: Yes Heart Rhythm Problems: Yes ("SKIPS BEATS") Cancer: Yes (lung s/p lobectomy and XRT ) Cardiac Catheterization: Yes Cardiovascular Problems: Yes (CAD) High Cholesterol: Yes Chemotherapy: No Chest Pain: Yes Congestive Heart Failure: Yes COPD: Yes Cerebrovascular Accident: No Coronary Artery Disease: No Diabetes: Yes Patient Takes Glucophage: No (unknown) Dialysis: Yes (PT STATES SHE GOES T TH SAT BUT PT WENT TODAY.) Diminished Hearing: No Endocrine: Yes Gastrointestinal Disorders: Yes (CONSTIPATION, colitis ) GERD: Yes Genitourinary: Yes (BLOOD IN URINE ) Headaches: No Hepatitis: Yes (PREVIOUS FOOD BORNE HEPATITIS INFECTION PER CAREGIVER) Hiatal Hernia: Yes Hypertension: Yes (NOW HYPOTENSION) Immune Disorder: No Implanted Vascular Access Dvce: Yes (LUE) Kidney Stones: No Musculoskeletal: Yes (OA) Neurologic: Yes (BRAIN ANEURYSM) Psychiatric: Yes Reproductive: No Respiratory: Yes (END STAGE EMPHYSEMA) Immunizations Current: Yes Migraines: No Myocardial Infarction: Yes (AGE 50) Pneumonia: Yes Radiation Therapy: Yes Renal Failure: Yes Seizures: No Sleep Apnea: No Thyroid Disease: No Ulcer: No ?: Not : 3 Para: 3 Miscarriage: 0 : 0 Tubal Ligation: Yes Past Surgical History Abdominal Surgery: Yes (cholecystectomy) AICD: No Arteriovenous Shunt: Yes Body Medical Devices: brain artery stent capped, fitsula l arm Cardiac Surgery: Yes (cardiac cath) Cholecystectomy: Yes Ear Surgery: No Endocrine Surgery: No Eye Surgery: No Gynecologic Surgery: Yes Insulin Pump: No Joint Replacement: Yes (R FEMUR REPAIR) Neurologic Surgery: Yes (brain anuerysm with stent (capped)) Oral Surgery: No Pacemaker: No Thoracic Surgery: Yes (WEDGE RESECTION FOR SQUAMOUS CELL CARCINOMA) Other Surgery: Yes (lobectomy, brain aneuysm clipp, tube ligation, right femur ro) Social History Alcohol Use: No Tobacco Use: Yes (06/25 PPD) Substance Use: No Allergies-Medications (Allergen,Severity, Reaction): Coded Allergies: morphine (Verified Allergy, Severe, RASH, 09/30/17) Sulfa (Sulfonamide Antibiotics) (Verified Allergy, Unknown, 09/30/17) ciprofloxacin (Verified Adverse Reaction, Intermediate, NAUSEAS, 09/30/17) codeine (Verified Adverse Reaction, Intermediate, Vertigo, 09/30/17) Reported Meds & Prescriptions Reported Meds & Active Scripts Active Magic Mouthwash Adult Liq (Multi-Ingredient Mouthwash/Gargle) 120 Ml Susp 10 Ml SWISH-SWAL ACHS Each 5mL contains: Nystatin 200,000units, Diphenhydramine 4.25mg, Viscous Lidocaine 10mg, Kahn syrup 0.8 mL Keflex (Cephalexin) 500 Mg Capsule 500 Mg PO TID 7 Days Zithromax (Azithromycin) 250 Mg Tab 250 Mg PO DAILY Cardizem (Diltiazem HCl) 30 Mg Tab 30 Mg PO Q6HR 30 Days Catapres (Clonidine) 0.1 Mg Tab 0.1 Mg PO UNSCH PRN 30 Days Lipitor (Atorvastatin Calcium) 10 Mg Tab 10 Mg PO HS 30 Days Metoprolol Tartrate 25 Mg Tab 25 Mg PO Q12HR Hold if systolic BP < 110 or Heart rate < 65 Vitamin D3 (Cholecalciferol) 2,000 Unit Cap 2,000 Units PO DAILY Fluoxetine (Fluoxetine HCl) 20 Mg Tab 20 Mg PO DAILY Midodrine 10 Mg Tab 10 Mg PO TID Calcium Acetate (Calcium Acetate (Phosphate Bin) 667 Mg Cap 667 Mg PO TIDPC Spiriva Handihaler (Tiotropium Inh) 18 Mcg Cap 18 Mcg INH DAILY 30 Days 1 capsule = 18 mcg Reported Levaquin (Levofloxacin) 500 Mg Tablet 500 Mg PO DAILY 5 Days Benadryl Allergy (Diphenhydramine HCl) 25 Mg Tablet 25 Mg PO Q4HR PRN Oxycodone (Oxycodone HCl) 10 Mg Tab 10 Mg PO Q4H PRN Gabapentin 300 Mg Cap 300 Mg PO TID Albuterol Neb (Albuterol Sulfate) 2.5 Mg/3 Ml Neb 2.5 Mg NEB QID NEB Melatonin Cr (Melatonin) 3 Mg Tab 3 Mg PO HS Guaifenesin Liq (Guaifenesin) 100 mg/5 ML Soln 200 Mg PO Q4H PRN Breo Ellipta Inh (Fluticasone/Vilanterol) 100-25 Mcg/Act Inh 1 Puff INH DAILY Use daily at the same time. Rinse mouth after each use. Tylenol (Acetaminophen) 325 Mg Tab 650 Mg PO Q4H PRN Milk of Magnesia Liq (Magnesium Hydroxide) 400 Mg/5 Ml Susp 30 Ml PO HS PRN Nitroglycerin SL (Nitroglycerin) 0.4 Mg Subl 0.4 Mg SL DIRECTED PRN ONE TABLET UNDER THE TONGUE NEEDED FOR CHEST PAIN, MAY REPEAT EVERY FIVE MINUTES FOR A TOTAL OF 3 DOSES OR CALL 911 IF NO RELIEF Bupropion HCl ER 24 HR (Bupropion HCl) 150 Mg Tab 150 Mg PO DAILY Lidopril Topical (Lidocaine-Prilocaine Topical) 2.5-2.5 % Cream 1 Applic TOPICAL TUTHSA Apply to shunt site daily every Saturday, and Saturday 1hr prior to dialysis Zofran (Ondansetron HCl) 4 Mg Tab 4 Mg PO Q6HR PRN Dialyvite 800 (B-Complex W/ C & Folic Acid) 1 Tab 1 Tab PO DAILY Ventolin Hfa 18 GM Inh (Albuterol Sulfate) 90 Mcg/Act Aer 2 Puff INH Q4HR Aspirin 81 Mg Chew 81 Mg PO DAILY Oxygen tank (Oxygen) 1 Ea Tank 2 Liter EDUARDO.CANULA HS Oxygen Concentrator Portable Gaseous 2 L/min via Nasal Cannula Continuous For 99 months Review of Systems Except as stated in HPI: all other systems reviewed are Neg General / Constitutional: No: Fever Eyes: No: Visual changes HENT: No: Headaches Cardiovascular: No: Chest Pain or Discomfort Respiratory: No: Shortness of Breath Gastrointestinal: No: Abdominal Pain Genitourinary: No: Dysuria Musculoskeletal: Positive: Arthralgias (See history of present illness), Limited ROM, Pain Skin: No Rash Neurologic: No: Weakness Psychiatric: No: Depression Endocrine: No: Polydipsia Hematologic/Lymphatic: No: Easy Bruising Physical Exam Narrative GENERAL: Patient appears in mild to moderate distress. She has a grimacing face. SKIN: Warm and dry. Normal color. Decreased turgor. Patient has old abrasion and contusion to the right catholic and cheek which appears to be healing normally. HEAD: Atraumatic. Normocephalic. EYES: Pupils equal and round. No scleral icterus. No injection or drainage. ENT: No nasal bleeding or discharge. Mucous membranes pink and moist. Pharynx is clear. Airways patent NECK: Trachea midline. Supple nontender. CARDIOVASCULAR: Regular rate and rhythm. RESPIRATORY: No accessory muscle use. Clear to auscultation. Breath sounds equal bilaterally. GASTROINTESTINAL: Abdomen soft, non-tender, nondistended. Hepatic and splenic margins not palpable. MUSCULOSKELETAL: Extremities without clubbing, cyanosis, or edema. No obvious deformities. Patient has fairly significant scoliosis with nonspecific tenderness along the mid thoracic and upper lumbar regions. No specific point bony tenderness is noted. NEUROLOGICAL: Awake and alert. No obvious cranial nerve deficits. Motor grossly within normal limits. Five out of 5 muscle strength in the arms and legs. Normal speech. PSYCHIATRIC: Appropriate mood and affect; insight and judgment normal. Data Data Last Documented VS Vital Signs Date Time Temp Pulse Resp B/P (MAP) Pulse Ox O2 Delivery O2 Flow Rate FiO2 10/19/17 13:47 98.2 64 18 145/67 (93) 97 Orders Orders Spine, Thoracic-Ap/Lat/Sw(3vw) (10/19/17 14:00) Spine, Lumbar - Ltd (Ap & Lat) (10/19/17 14:00) Isolation 08,20 (10/19/17 14:01) Oxycodone-Acetamin 5-325 Mg (Percocet (10/19/17 14:15) MDM Medical Decision Making Medical Screen Exam Complete: Yes Emergency Medical Condition: Yes Medical Record Reviewed: Yes Differential Diagnosis Acute on chronic back pain. Scoliosis. Possible compression fracture. Narrative Course Patient is given Percocet 5/325 p.o. now. X-rays of the thoracic and lumbar spine are obtained. Lumbar films show no evidence of subluxation or scoliosis, there is no acute process noted per radiologist Thoracic x-rays show chronic changes without acute findings per radiologist. Patient is felt to have acute on chronic back pain. Patient has pain medication at home which he can continue as needed. Patient should return to dialysis on Saturday as scheduled. Patient can return if symptoms worsen as needed. Diagnosis Primary Impression: Acute exacerbation of chronic low back pain Patient Instructions: Arthralgia (ED), Back Pain (ED), General Instructions Additional Instructions: Patient is given Percocet 5/325 p.o. now. X-rays of the thoracic and lumbar spine are obtained. Lumbar films show no evidence of subluxation or scoliosis, there is no acute process noted per radiologist Thoracic x-rays show chronic changes without acute findings per radiologist. Patient is felt to have acute on chronic back pain. Patient has pain medication at home which he can continue as needed. Patient should return to dialysis on Saturday as scheduled. Patient can return if symptoms worsen as needed. Med/Other Pt SpecificInfo: No Change to Meds Disposition: 01 DISCHARGE HOME Condition: Stable Bruce Levy Oct 19, 2017 14:05
[2017-10-19] MEDS ORDERED: oxyCODONE/ACETAMINOPHEN 5 MG/325 MG TAB PO ONE (14:15)
--- NOTE | 2017-10-19 15:28 | RADRPT ---
EXAM DATE/TIME: 10/19/2017 14:34 [facility] COMPARISON: CHEST SINGLE AP, October 04, 2017, 23:14. CHEST SINGLE AP, October 06, 2017, 17:08. INDICATIONS : Patient complains of upper back pain status post fall. MEDICAL HISTORY : None. SURGICAL HISTORY : None. ENCOUNTER: Initial ACUITY: 1 week PAIN SCORE: 5/10 LOCATION: T-Spine FINDINGS: There is normal alignment of the thoracic vertebral bodies. Vertebral body height is maintained. The re are mild areas of spurring seen throughout the thoracic spine. There is a levocurvature of the tho racolumbar region. Degenerative change is seen in the cervical spine. There appear to be lung ulisses at the left lower lung. There are several lateral left rib fractures that appear chronic. CONCLUSION: Chronic change in the thoracic spine. There appear to be old left rib fractures. Jose Clark MD on October 19, 2017 at 15:22 Board Certified Radiologist. This report was verified electronically.
--- NOTE | 2017-10-19 15:29 | RADRPT ---
EXAM DATE/TIME: 10/19/2017 14:35 [facility] COMPARISON: No previous studies available for comparison. INDICATIONS : Patient complains of lower back pain status post fall. MEDICAL HISTORY : None. SURGICAL HISTORY : None. ENCOUNTER: Initial ACUITY: 1 week PAIN SCORE: 5/10 LOCATION: L-Spine FINDINGS: Two view examination was performed. There are five non-rib bearing vertebral bodies. The vertebral bodies are in normal alignment in the sagittal plane. without evidence of subluxation or scoliosis. There is a dextrocurvature of the lumbar spine. Scattered mild spurring is seen. There is lower lumba r facet hypertrophy. The pedicles are intact. Bony mineralization is normal. No fracture is identi fied. There are surgical compression screw seen at the proximal right femur. CONCLUSION: Degenerative change. Jose Clark MD on October 19, 2017 at 15:25 Board Certified Radiologist. This report was verified electronically.
== END 2017-10-19 16:31 | disposition home or self-care (01) ==
LOC: NEPD 13:37
DX: M54.5 Low back pain (principal); G89.29 Other chronic pain; F17.200 Nicotine dependence, unspecified, uncomplicated; I13.2 Hypertensive heart and chronic kidney disease with heart failure and with stage 5 chronic kidney disease, or end stage renal disease; I50.9 Heart failure, unspecified; E11.22 Type 2 diabetes mellitus with diabetic chronic kidney disease; N18.6 End stage renal disease; E78.00 Pure hypercholesterolemia, unspecified; Z99.2 Dependence on renal dialysis
CPT/HCPCS: 72072; 72100; 99283